=== PATIENT | female | born 1975 | race Caucasian/White ===

== ENCOUNTER → 2016-09-18 | Outpatient (CLI) | payer OTHER ==
[~2016-09-18] MED LIST: ATOR1TAB21 PO; BUPR150T3 PO; BUPR15TA PO; EFFE150C PO; GABA-279 PO; GLIP5TAB8 PO; HYDR-4274 PO; LISI40TAB PO; LOPR100T PO; METF500T PO; METH4TAB6 PO; METO-207 PO; MIRT1TAB PO; MIRT30TA3 PO; NAPR500T2 PO; NEUR300C PO; PRAZ2CAP PO; PROT1TAB2 PO; TOPA50TA7 PO; VENL225T PO; VENL50TA2 PO; XYZA5TAB2 PO
--- NOTE | 2016-09-19 05:34 | REP ---
LEFT HIP SERIES: TWO VIEWS. History: Pain in the left hip. Injury in a fall. Findings: AP and frog-leg views of the left hip show no evidence of hip fracture. Periarticular soft tissues are unremarkable. Left hemipelvis is intact. Impression: No fracture seen. Signed by Del Osullivan MD 09/19/2016 08:31 A
== END | disposition home or self-care (01) ==
LOC: M ADAMS 16:45
PROVIDERS: ATTEND Physician Assistant
DX: M25.552 Pain in left hip (principal)

== ENCOUNTER → 2016-11-03 | Outpatient (CLI) | payer OTHER ==
[~2016-11-03] MED LIST changes: -LOPR100T PO; +LOPR1TAB7 PO
== END ==
LOC: M LAB 16:14
PROVIDERS: ATTEND 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 Psychiatric/Mental Health
DX: F25.1 Schizoaffective disorder, depressive type (principal)

== ENCOUNTER 2016-11-13 15:23 | Emergency (ER) | payer OTHER ==
[~2016-11-13] VITALS: Ht 170.2 cm; Wt 141.5 kg
[2016-11-13 15:24] VITALS: BP 139/86
[2016-11-13] MEDS ORDERED: ZANA2CAP PO (15:43)
[2016-11-13] MEDS ORDERED: TRAM50TA2 PO (15:43)
[2016-11-13] MEDS ORDERED: MOBI7.5T10 PO (15:43)
[2016-11-13] MEDS ORDERED: KETOROLAC 30 MG/ML VIAL (J1885) IV ONE (17:45)
[2016-11-13] MEDS ORDERED: diazePAM 5 MG TAB PO ONE (17:45)
[2016-11-13] MEDS ORDERED: PERCOCET 5MG/325MG TAB PO ONE (17:45)
== END 2016-11-13 18:24 | disposition home or self-care (01) ==
LOC: M ED 16:43
DX: G89.29 Other chronic pain (principal); M54.16 Radiculopathy, lumbar region; I10 Essential (primary) hypertension; F32.9 Major depressive disorder, single episode, unspecified; Z79.899 Other long term (current) drug therapy; Z88.0 Allergy status to penicillin; Z87.891 Personal history of nicotine dependence
CPT/HCPCS: 96374; 99282; J1885

== ENCOUNTER → 2017-01-10 | Outpatient (CLI) | payer OTHER ==
[~2017-01-10] MED LIST changes: +MOBI7.5T10 PO; +TRAM50TA2 PO; +ZANA2CAP PO
[2017-01-10 09:22] LABS: ANION GAP 6 MEQ/L (8-16); BLOOD UREA NITROGEN 7 MG/DL (7-18); CALCIUM LEVEL 8.5 MG/DL (8.5-10.1); CARBON DIOXIDE LEVEL 31 MEQ/L (21-32); CHLORIDE LEVEL 105 MEQ/L (98-107); GLOMERULAR FILTRATION RATE > 60.0 (>58); GLUCOSE, FASTING 94 MG/DL (70-105); SODIUM LEVEL 142 MEQ/L (136-145)
== END ==
LOC: M LAB 08:07
PROVIDERS: ATTEND Physician Assistant Medical
DX: E11.9 Type 2 diabetes mellitus without complications (principal)

== ENCOUNTER 2017-01-31 14:24 | Emergency (ER) | payer OTHER ==
[~2017-01-31] VITALS: Ht 170.2 cm; Wt 138.3 kg
[2017-01-31] MEDS ORDERED: AMIT25TA PO (14:38)
[2017-01-31] MEDS ORDERED: OXYC-517 PO (14:38)
[2017-01-31 16:13] VITALS: BP 168/110
--- NOTE | 2017-01-31 16:52 | REP ---
Clinical: Cellulitis related to recent surgery. Evaluate for abscess. Technique: Real time alonso scale ultrasound examination using linear high frequency transducer. Findings: Directed ultrasound examination at the site of surgical incision and previously noted discharge demonstrates a normal subcutaneous tissues and musculature. No fluid, drainable collection, abscess, sinus tract or abnormalities identified. Impression: Essentially normal directed ultrasound examination. No fluid, drainable collection/abscess, or sinus tract noted. Signed by Jessee Seymour MD 01/31/2017 04:43 P
== END 2017-01-31 17:18 | disposition home or self-care (01) ==
LOC: M ED 15:35
DX: Z48.89 Encounter for other specified surgical aftercare (principal); I10 Essential (primary) hypertension; E11.9 Type 2 diabetes mellitus without complications; F31.9 Bipolar disorder, unspecified; F41.9 Anxiety disorder, unspecified; M54.9 Dorsalgia, unspecified; G89.29 Other chronic pain; Z87.891 Personal history of nicotine dependence; Z88.0 Allergy status to penicillin; Z79.899 Other long term (current) drug therapy

== ENCOUNTER → 2017-06-12 | Outpatient (CLI) | payer OTHER ==
[~2017-06-12] MED LIST changes: +AMIT25TA PO; -HYDR-4274 PO; +HYDR50TA70 PO; -METF500T PO; +METF500T13 PO; +METH4TAB28 PO; -METH4TAB6 PO; -METO-207 PO; +METO1TAB7 PO; +MOBI4TAB PO; -MOBI7.5T10 PO; -NAPR500T2 PO; +NAPR500T3 PO; +OXYC-517 PO; -TOPA50TA7 PO; +TOPA50TA8 PO
[2017-06-12 08:53] LABS: BASO % 0.6 % (0.0-1.0); EOS # 0.2 10^3/uL (0.0-0.50); EOS % 2.3 % (0.0-3.0); IMMATURE GRANULOCYTE % 0.3 % (0-0); LYMPH # 1.5 10^3/uL (1.5-4.5); LYMPH % 21.5 % (24.0-44.0); MEAN CORPUSCULAR HEMOGLOBIN 29.7 pg (27.0-33.0); MEAN CORPUSCULAR HGB CONC 32.1 g/dl (32.0-36.5); MEAN CORPUSCULAR VOLUME 92.7 fl (80.0-96.0); MONO # 0.5 10^3/uL (0.0-0.8); MONO % 7.3 % (0.0-5.0); NEUTROPHILS # 4.8 10^3/uL (1.8-7.7); RED CELL DISTRIBUTION WIDTH 11.7 % (11.5-14.5)
[2017-06-12 09:22] LABS: ALBUMIN 3.7 GM/DL (3.2-5.2); ALBUMIN/GLOBULIN RATIO 1.06 (1.00-1.93); ALKALINE PHOSPHATASE 83 U/L (45-117); ALT/SGPT 23 U/L (12-78); ANION GAP 6 MEQ/L (8-16); AST/SGOT 7 U/L (15-37); BILIRUBIN,TOTAL 0.4 MG/DL (0.2-1.0); BLOOD UREA NITROGEN 9 MG/DL (7-18); CALCIUM LEVEL 9.1 MG/DL (8.5-10.1); CARBON DIOXIDE LEVEL 30 MEQ/L (21-32); CHLORIDE LEVEL 104 MEQ/L (98-107); CREATININE FOR GFR 0.89 MG/DL (0.55-1.02); FERRITIN 75 NG/ML (8-252); GLOMERULAR FILTRATION RATE > 60.0 (>58); GLUCOSE, FASTING 120 MG/DL (70-105); SODIUM LEVEL 140 MEQ/L (136-145); TOTAL PROTEIN 7.2 GM/DL (6.4-8.2)
[2017-06-12 10:36] LABS: VITAMIN B12 LEVEL 366 PG/ML
[2017-06-12 10:39] LABS: FOLATE 11.1 NG/ML
[2017-06-13 12:02] LABS: ALBUMIN 4.15 GM/DL (3.29-5.55); ALBUMIN % 57.7 % (55.8-66.1); GAMMA GLOBULIN % 14.4 % (11.1-18.8)
[2017-06-14 00:06] LABS: Lyme Disease IgG/IgM Antibodie <0.91 ISR (0.00-0.90); Lyme Disease IgM Ab Quantitati <0.80 index (0.00-0.79)
== END ==
LOC: M LAB 07:37
PROVIDERS: ATTEND Physician Assistant Medical
DX: R42 Dizziness and giddiness (principal); M54.5 Low back pain

== ENCOUNTER → 2017-06-16 | Outpatient (CLI) | payer OTHER ==
--- NOTE | 2017-06-16 14:10 | REP ---
RIGHT SHOULDER SERIES: Three views of the right shoulder are performed and demonstrate no fracture, dislocation or intrinsic bone disease. IMPRESSION: Negative right shoulder series. Signed by Erasto Hernandez MD 06/16/2017 02:46 P
--- NOTE | 2017-06-16 14:11 | REP ---
RIGHT HUMERUS: AP and lateral views of the right humerus are performed. There is no evidence of acute fracture, dislocation, or intrinsic bone disease. IMPRESSION: Negative exam right humerus. Signed by Erasto Hernandez MD 06/16/2017 02:46 P
== END ==
LOC: M LAB 13:15
PROVIDERS: ATTEND Physician Assistant Medical
DX: M25.511 Pain in right shoulder (principal)

== ENCOUNTER → 2017-08-15 | Outpatient (CLI) | payer OTHER ==
[2017-08-15 12:01] LABS: BLOOD UREA NITROGEN 5 MG/DL (7-18); CREATININE FOR GFR 0.97 MG/DL (0.55-1.02); GLOMERULAR FILTRATION RATE > 60.0 (>58)
== END ==
LOC: M LAB 11:00
PROVIDERS: ATTEND Physician Assistant Medical
DX: Z86.79 Personal history of other diseases of the circulatory system (principal)

== ENCOUNTER → 2017-09-18 | Outpatient (CLI) | payer OTHER ==
[2017-09-18 15:05] LABS: BASO % 0.5 % (0.0-1.0); EOS # 0.2 10^3/uL (0.0-0.50); EOS % 2.6 % (0.0-3.0); HEMATOCRIT 39.9 % (36.0-47.0); HEMOGLOBIN 13.4 g/dl (12.0-16.0); IMMATURE GRANULOCYTE % 0.3 % (0-0); LYMPH # 1.7 10^3/uL (1.5-4.5); LYMPH % 21.7 % (24.0-44.0); MEAN CORPUSCULAR HGB CONC 33.6 g/dl (32.0-36.5); MEAN CORPUSCULAR VOLUME 89.3 fl (80.0-96.0); MONO # 0.6 10^3/uL (0.0-0.8); MONO % 7.5 % (0.0-5.0); NEUTROPHILS # 5.2 10^3/uL (1.8-7.7); NEUTROPHILS % 67.4 % (36.0-66.0); PLATELET COUNT, AUTOMATED 255 10^3/uL (150-450); RED BLOOD COUNT 4.47 10^6/uL (4.00-5.40); WHITE BLOOD COUNT 7.6 10^3/uL (4.0-10.0)
[2017-09-18 15:19] LABS: INR 1.03; PROTHROMBIN TIME 13.6 SECONDS (12.4-14.5)
[2017-09-18 15:20] LABS: PARTIAL THROMBOPLASTIN TIME 28.1 SECONDS (26.8-37.9)
[2017-09-18 15:34] LABS: ALBUMIN 3.5 GM/DL (3.2-5.2); ALBUMIN/GLOBULIN RATIO 1.09 (1.00-1.93); ALKALINE PHOSPHATASE 73 U/L (45-117); ALT/SGPT 24 U/L (12-78); ANION GAP 6 MEQ/L (8-16); AST/SGOT 12 U/L (7-37); BILIRUBIN,TOTAL 0.4 MG/DL (0.2-1.0); BLOOD UREA NITROGEN 6 MG/DL (7-18); CALCIUM LEVEL 8.9 MG/DL (8.5-10.1); CARBON DIOXIDE LEVEL 26 MEQ/L (21-32); CHLORIDE LEVEL 108 MEQ/L (98-107); CREATININE FOR GFR 0.86 MG/DL (0.55-1.02); GLOMERULAR FILTRATION RATE > 60.0 (>58); GLUCOSE, FASTING 113 MG/DL (70-105); SODIUM LEVEL 140 MEQ/L (136-145); TOTAL PROTEIN 6.7 GM/DL (6.4-8.2)
== END ==
LOC: M LAB 14:46
DX: E66.9 Obesity, unspecified (principal)
CPT/HCPCS: 71046

== ENCOUNTER → 2017-10-11 | Outpatient (CLI) | payer OTHER ==
[2017-10-11 19:04] LABS: BASO # 0.1 10^3/uL (0.0-0.2); BASO % 0.5 % (0.0-1.0); EOS # 0.4 10^3/uL (0.0-0.50); EOS % 3.5 % (0.0-3.0); HEMATOCRIT 40.4 % (36.0-47.0); HEMOGLOBIN 13.1 g/dl (12.0-16.0); IMMATURE GRANULOCYTE # 0.1 10^3/uL (0-0); IMMATURE GRANULOCYTE % 0.6 % (0-0); LYMPH # 1.4 10^3/uL (1.5-4.5); LYMPH % 13.7 % (24.0-44.0); MEAN CORPUSCULAR HEMOGLOBIN 29.7 pg (27.0-33.0); MEAN CORPUSCULAR HGB CONC 32.4 g/dl (32.0-36.5); MEAN CORPUSCULAR VOLUME 91.6 fl (80.0-96.0); MONO # 0.8 10^3/uL (0.0-0.8); MONO % 8.2 % (0.0-5.0); NEUTROPHILS # 7.3 10^3/uL (1.8-7.7); NEUTROPHILS % 73.5 % (36.0-66.0); PLATELET COUNT, AUTOMATED 291 10^3/uL (150-450); RED BLOOD COUNT 4.41 10^6/uL (4.00-5.40); RED CELL DISTRIBUTION WIDTH 12.1 % (11.5-14.5); WHITE BLOOD COUNT 9.9 10^3/uL (4.0-10.0)
[2017-10-11 19:15] LABS: ESTIMATED AVERAGE GLUCOSE 111 MG/DL (60-110); HEMOGLOBIN A1c 5.5 %
[2017-10-11 19:53] LABS: HEMATOCRIT 40.4 % (36.0-47.0)
[2017-10-11 19:57] LABS: ALBUMIN 3.7 GM/DL (3.2-5.2); ALBUMIN/GLOBULIN RATIO 1.12 (1.00-1.93); ALKALINE PHOSPHATASE 130 U/L (45-117); ALT/SGPT 63 U/L (12-78); ANION GAP 8 MEQ/L (8-16); AST/SGOT 25 U/L (7-37); BILIRUBIN,TOTAL 0.8 MG/DL (0.2-1.0); BLOOD UREA NITROGEN 16 MG/DL (7-18); CALCIUM LEVEL 9.1 MG/DL (8.5-10.1); CARBON DIOXIDE LEVEL 28 MEQ/L (21-32); CHLORIDE LEVEL 106 MEQ/L (98-107); FERRITIN 202 NG/ML (8-252); GLOMERULAR FILTRATION RATE 40.3 (>58); GLUCOSE, FASTING 81 MG/DL (70-100); IRON (FE) 54 UG/DL (50-170); MAGNESIUM LEVEL 2.2 MG/DL (1.8-2.4); PERCENT SATURATION 19.1 % (13.2-45.0); PHOSPHORUS LEVEL 3.5 MG/DL (2.5-4.9); SODIUM LEVEL 142 MEQ/L (136-145); TOTAL IRON BINDING CAPACITY 282 UG/DL (250-450)
[2017-10-11 19:58] LABS: TOTAL 25(OH) VITAMIN D 52.2 NG/ML (30.0-100.0)
[2017-10-11 19:59] LABS: VITAMIN B12 LEVEL 668 PG/ML (247-911)
[2017-10-13 12:50] LABS: PRETREATED FOLATE FOR RBCFOL 12.7 NG/ML; RBC FOLATE 660.1 NG/ML (280-791)
== END ==
LOC: M LAB 18:02
DX: K91.2 Postsurgical malabsorption, not elsewhere classified (principal); Z98.84 Bariatric surgery status
CPT/HCPCS: 83550

== ENCOUNTER → 2017-11-29 | Outpatient (CLI) | payer OTHER | LOC: M RAD 11:00 | DX: Z12.31 Encounter for screening mammogram for malignant neoplasm of breast (principal) | CPT/HCPCS: 77067 ==

== ENCOUNTER → 2017-12-28 | Outpatient (CLI) | payer OTHER | LOC: M PAIN 11:15 | DX: M96.1 Postlaminectomy syndrome, not elsewhere classified (principal); I10 Essential (primary) hypertension; E78.00 Pure hypercholesterolemia, unspecified; F41.9 Anxiety disorder, unspecified; F31.9 Bipolar disorder, unspecified; G47.30 Sleep apnea, unspecified; R73.03 Prediabetes; Z79.899 Other long term (current) drug therapy; Z98.84 Bariatric surgery status; Z87.891 Personal history of nicotine dependence; Z88.0 Allergy status to penicillin | CPT/HCPCS: G0463 ==

== ENCOUNTER → 2018-01-11 | Outpatient (CLI) | payer OTHER ==
[~2018-01-11] MED LIST changes: -AMIT25TA PO; -ATOR1TAB21 PO; +BUPIVACAINE HCL 0.25% 10 ML VIAL As Ordered; +BUPIVACAINE HCL 0.25% 30 ML VIAL As Ordered; -BUPR150T3 PO; -BUPR15TA PO; -EFFE150C PO; -GABA-279 PO; -GLIP5TAB8 PO; -HYDR50TA70 PO; -LISI40TAB PO; -LOPR1TAB7 PO; -METF500T13 PO; -METH4TAB28 PO; -METO1TAB7 PO; -MIRT1TAB PO; -MIRT30TA3 PO; -MOBI4TAB PO; -NAPR500T3 PO; -NEUR300C PO; -OXYC-517 PO; -PRAZ2CAP PO; -PROT1TAB2 PO; -TOPA50TA8 PO; -TRAM50TA2 PO; +TRIAMCINOLONE ACETONIDE SUSP 40 MG/ML VIAL (J3301) As Ordered; -VENL225T PO; -VENL50TA2 PO; -XYZA5TAB2 PO; -ZANA2CAP PO; +diazePAM 5 MG TAB As Ordered; +oxyCODONE 5MG TAB As Ordered
== END ==
LOC: M PAIN 14:30
DX: G89.29 Other chronic pain (principal); M79.1 Myalgia; I10 Essential (primary) hypertension; E78.2 Mixed hyperlipidemia; F41.9 Anxiety disorder, unspecified; F31.9 Bipolar disorder, unspecified; Z87.891 Personal history of nicotine dependence; Z79.891 Long term (current) use of opiate analgesic; Z98.84 Bariatric surgery status; Z90.49 Acquired absence of other specified parts of digestive tract; Z88.0 Allergy status to penicillin
CPT/HCPCS: J3301

== ENCOUNTER → 2018-01-30 | Outpatient (CLI) | payer OTHER | LOC: M PAIN 11:45 | DX: M79.1 Myalgia (principal); M96.1 Postlaminectomy syndrome, not elsewhere classified; I10 Essential (primary) hypertension; R73.03 Prediabetes; E78.00 Pure hypercholesterolemia, unspecified; E78.1 Pure hyperglyceridemia; F41.9 Anxiety disorder, unspecified; F17.210 Nicotine dependence, cigarettes, uncomplicated; Z79.899 Other long term (current) drug therapy; Z88.0 Allergy status to penicillin; Z86.59 Personal history of other mental and behavioral disorders; Z98.84 Bariatric surgery status | CPT/HCPCS: G0463 ==

== ENCOUNTER → 2018-02-20 | Outpatient (CLI) | payer OTHER | LOC: M PAIN 09:00 | DX: M50.122 Cervical disc disorder at C5-C6 level with radiculopathy (principal); M79.1 Myalgia; M96.1 Postlaminectomy syndrome, not elsewhere classified; I10 Essential (primary) hypertension; R73.03 Prediabetes; E78.2 Mixed hyperlipidemia; F41.9 Anxiety disorder, unspecified; F32.9 Major depressive disorder, single episode, unspecified; Z87.891 Personal history of nicotine dependence; Z88.0 Allergy status to penicillin; Z79.891 Long term (current) use of opiate analgesic; Z79.899 Other long term (current) drug therapy | CPT/HCPCS: G0463 ==

== ENCOUNTER 2018-03-06 19:39 | Observation (INO) | payer OTHER ==
[2018-03-06] MEDS: NS 1,000 ML IV (16:33)
[2018-03-06] MEDS: GI COCKTAIL 50ML BTL(HYOSCYAMINE/MAALOX/LIDOCAINE VISCOUS)(1:3:1) PO (16:33)
[2018-03-06 16:51] LABS: BASO % 0.3 % (0.0-1.0); EOS # 0.1 10^3/uL (0.0-0.50); EOS % 1.5 % (0.0-3.0); HEMATOCRIT 41.2 % (36.0-47.0); IMMATURE GRANULOCYTE % 0.2 % (0-3.0); LYMPH # 1.6 10^3/uL (1.5-4.5); MEAN CORPUSCULAR VOLUME 88.4 fl (80.0-96.0); MONO # 0.4 10^3/uL (0.0-0.8); MONO % 7.2 % (0.0-5.0); NEUTROPHILS % 64.8 % (36.0-66.0); PLATELET COUNT, AUTOMATED 201 10^3/uL (150-450); RED BLOOD COUNT 4.66 10^6/uL (4.00-5.40); WHITE BLOOD COUNT 6.1 10^3/uL (4.0-10.0)
[2018-03-06 16:56] LABS: INR 1.05; PARTIAL THROMBOPLASTIN TIME 30.9 SECONDS (26.8-37.9); PROTHROMBIN TIME 13.8 SECONDS (12.4-14.5)
[2018-03-06 17:13] LABS: ALKALINE PHOSPHATASE 93 U/L (45-117); ALT/SGPT 47 U/L (12-78); ANION GAP 9 MEQ/L (8-16); AST/SGOT 58 U/L (7-37); BILIRUBIN,DIRECT 0.2 MG/DL (0.0-0.2); BILIRUBIN,TOTAL 0.6 MG/DL (0.2-1.0); BLOOD UREA NITROGEN 9 MG/DL (7-18); CALCIUM LEVEL 8.6 MG/DL (8.5-10.1); CARBON DIOXIDE LEVEL 24 MEQ/L (21-32); CHLORIDE LEVEL 111 MEQ/L (98-107); CPK CREATINE PHOSPHOKINASE 81 U/L (26-192); CREATININE FOR GFR 0.53 MG/DL (0.55-1.30); FREE T4 0.86 NG/DL (0.76-1.46); GLOMERULAR FILTRATION RATE > 60.0 (>58); GLUCOSE, FASTING 83 MG/DL (70-100); LIPASE 460 U/L (73-393); POTASSIUM SERUM 3.8 MEQ/L (3.5-5.1); SODIUM LEVEL 144 MEQ/L (136-145); TROPONIN I < 0.02 NG/ML (< 0.10)
[2018-03-06 17:17] LABS: LACTIC ACID SEPSIS PROTOCOL 1.4 MMOL/L (0.4-2.0)
[2018-03-06 17:18] LABS: CK-MB VALUE MASS 1.4 NG/ML (<3.6); MB/CK RELATIVE INDEX 1.72 (< OR =4); THYROID STIMULATING HORMONE 0.511 uIU/ML (0.358-3.740)
[2018-03-06] MEDS: ASPIRIN 81 MG CHEW TABLET PO (18:11)
[~2018-03-06 19:39] MED LIST changes: +ISOVUE-370 76% 100ML VIAL (Q9967) As Ordered; -ISOVUE-M 300 61% 15ML VIAL (Q9967) As Ordered; -LIDOCAINE 1% SDV INJ 30 ML VIAL As Ordered; -diazePAM 5 MG TAB As Ordered; -methylPREDNISolone SUSP 40 MG/ML (DEPO-medrol) VIAL (J1030) As Ordered; -oxyCODONE 5MG TAB As Ordered
[2018-03-06 21:13] LABS: AMORPHOUS SEDIMENT RFX SMALL (NEGATIVE); CALCIUM OXALATE CRYSTALS RFX SMALL; KETONE, URINE AUTO RFX TRACE mg/dL (NEGATIVE); LEUKOCYTE ESTERASE UR AUTO RFX NEGATIVE (NEGATIVE); MUCUS, URINE RFX SMALL (NEGATIVE); NITRITE, URINE AUTO RFX NEGATIVE (NEGATIVE); RBC, URINE AUTO RFX 8 /HPF (0-3); SPECIFIC GRAVITY UR AUTO RFX 1.038 (1.002-1.035); SQUAM EPITHELIAL CELL UR AURFX 2 /HPF (0-6); WBC, URINE AUTO RFX 2 /HPF (0-3)
[2018-03-06 21:36] LABS: CPK CREATINE PHOSPHOKINASE 57 U/L (26-192); TROPONIN I < 0.02 NG/ML (< 0.10)
[2018-03-06 21:37] LABS: CK-MB VALUE MASS 1.2 NG/ML (<3.6)
[2018-03-06] MEDS: amLODIPine 5 MG TAB PO (22:42)
[2018-03-07] MEDS: ACETAMINOPHEN TAB 650MG DOSE (2X325MG) PO ×2 (00:41→07:45)
[2018-03-07] MEDS ORDERED: SLF 3 ML SYR IV ×2 (08:30→14:00)
[2018-03-07 08:40] LABS: HEMATOCRIT 39.2 % (36.0-47.0); HEMOGLOBIN 13.3 g/dl (12.0-15.5); MEAN CORPUSCULAR HEMOGLOBIN 30.2 pg (27.0-33.0); MEAN CORPUSCULAR HGB CONC 33.9 g/dl (32.0-36.5); MEAN CORPUSCULAR VOLUME 89.1 fl (80.0-96.0); PLATELET COUNT, AUTOMATED 193 10^3/uL (150-450); WHITE BLOOD COUNT 5.7 10^3/uL (4.0-10.0)
[2018-03-07 09:19] LABS: ANION GAP 10 MEQ/L (8-16); BLOOD UREA NITROGEN 7 MG/DL (7-18); CALCIUM LEVEL 8.1 MG/DL (8.5-10.1); CARBON DIOXIDE LEVEL 26 MEQ/L (21-32); CHLORIDE LEVEL 110 MEQ/L (98-107); CK-MB VALUE MASS < 1.0 NG/ML (<3.6); CPK CREATINE PHOSPHOKINASE 37 U/L (26-192); CREATININE FOR GFR 0.58 MG/DL (0.55-1.30); GLOMERULAR FILTRATION RATE > 60.0 (>58); GLUCOSE, FASTING 76 MG/DL (70-100); POTASSIUM SERUM 3.7 MEQ/L (3.5-5.1); SODIUM LEVEL 146 MEQ/L (136-145); TROPONIN I < 0.02 NG/ML (< 0.10)
[2018-03-07] MEDS: amLODIPine 5 MG TAB PO (09:37)
== END 2018-03-07 10:56 | disposition home or self-care (01) ==
LOC: M ED 19:39 → M ED INP 22:04 → M PCU 22:58
DX: R00.1 Bradycardia, unspecified (principal); I10 Essential (primary) hypertension; Z79.899 Other long term (current) drug therapy; Z88.0 Allergy status to penicillin; M54.5 Low back pain; E78.5 Hyperlipidemia, unspecified; E11.9 Type 2 diabetes mellitus without complications; F31.9 Bipolar disorder, unspecified; F43.10 Post-traumatic stress disorder, unspecified; E66.01 Morbid (severe) obesity due to excess calories; Z98.84 Bariatric surgery status
CPT/HCPCS: Q9967

== ENCOUNTER → 2018-03-06 | Outpatient (CLI) | payer OTHER ==
[~2018-03-06] MED LIST changes: -BUPIVACAINE HCL 0.25% 10 ML VIAL As Ordered; -BUPIVACAINE HCL 0.25% 30 ML VIAL As Ordered; +ISOVUE-M 300 61% 15ML VIAL (Q9967) As Ordered; +LIDOCAINE 1% SDV INJ 30 ML VIAL As Ordered; -TRIAMCINOLONE ACETONIDE SUSP 40 MG/ML VIAL (J3301) As Ordered; +methylPREDNISolone SUSP 40 MG/ML (DEPO-medrol) VIAL (J1030) As Ordered
== END ==
LOC: M PAIN 11:30
DX: G89.29 Other chronic pain (principal); M96.1 Postlaminectomy syndrome, not elsewhere classified; M54.16 Radiculopathy, lumbar region; I10 Essential (primary) hypertension; R73.03 Prediabetes; E78.00 Pure hypercholesterolemia, unspecified; F41.9 Anxiety disorder, unspecified; F31.9 Bipolar disorder, unspecified; Z79.899 Other long term (current) drug therapy; Z88.8 Allergy status to other drugs, medicaments and biological substances; Z98.84 Bariatric surgery status; Z87.891 Personal history of nicotine dependence
CPT/HCPCS: J1030

== ENCOUNTER → 2018-03-23 | Outpatient (CLI) | payer OTHER | LOC: M PAIN 13:15 | DX: M50.122 Cervical disc disorder at C5-C6 level with radiculopathy (principal); M79.1 Myalgia; M96.1 Postlaminectomy syndrome, not elsewhere classified; I10 Essential (primary) hypertension; R73.03 Prediabetes; E78.2 Mixed hyperlipidemia; F41.9 Anxiety disorder, unspecified; F32.9 Major depressive disorder, single episode, unspecified; Z87.891 Personal history of nicotine dependence; Z79.899 Other long term (current) drug therapy; Z98.84 Bariatric surgery status; Z90.49 Acquired absence of other specified parts of digestive tract; Z88.0 Allergy status to penicillin | CPT/HCPCS: G0463 ==

== ENCOUNTER → 2018-04-03 | Outpatient (CLI) | payer OTHER ==
[2018-04-03 08:56] LABS: HEMATOCRIT 41.8 % (36.0-47.0); HEMOGLOBIN 13.9 g/dl (12.0-15.5); MEAN CORPUSCULAR HEMOGLOBIN 30.5 pg (27.0-33.0); MEAN CORPUSCULAR HGB CONC 33.3 g/dl (32.0-36.5); MEAN CORPUSCULAR VOLUME 91.7 fl (80.0-96.0); PLATELET COUNT, AUTOMATED 191 10^3/uL (150-450); RED BLOOD COUNT 4.56 10^6/uL (4.00-5.40); RED CELL DISTRIBUTION WIDTH 13.3 % (11.5-14.5); WHITE BLOOD COUNT 4.9 10^3/uL (4.0-10.0)
[2018-04-03 09:13] LABS: ESTIMATED AVERAGE GLUCOSE 100 MG/DL (60-110); HEMOGLOBIN A1c 5.1 %
[2018-04-03 09:22] LABS: ALBUMIN 3.1 GM/DL (3.2-5.2); ALBUMIN/GLOBULIN RATIO 1.15 (1.00-1.93); ALKALINE PHOSPHATASE 74 U/L (45-117); ALT/SGPT 24 U/L (12-78); ANION GAP 8 MEQ/L (8-16); AST/SGOT 11 U/L (7-37); BILIRUBIN,TOTAL 0.5 MG/DL (0.2-1.0); BLOOD UREA NITROGEN 7 MG/DL (7-18); CALCIUM LEVEL 8.4 MG/DL (8.5-10.1); CARBON DIOXIDE LEVEL 29 MEQ/L (21-32); CHLORIDE LEVEL 109 MEQ/L (98-107); CHOLESTEROL LEVEL 115 MG/DL (<200); CHOLESTEROL RISK RATIO 2.948 (<5); FREE T4 0.78 NG/DL (0.76-1.46); GLOMERULAR FILTRATION RATE > 60.0 (>58); GLUCOSE, FASTING 78 MG/DL (70-100); HDL CHOLESTEROL 39 MG/DL (>40); NON-HDL-C 76 MG/DL; POTASSIUM SERUM 3.5 MEQ/L (3.5-5.1); SODIUM LEVEL 146 MEQ/L (136-145); THYROID STIMULATING HORMONE 0.958 uIU/ML (0.358-3.740); TOTAL PROTEIN 5.8 GM/DL (6.4-8.2); TRIGLYCERIDES LEVEL 80 MG/DL (<150)
[2018-04-03 10:43] LABS: TOTAL 25(OH) VITAMIN D 80.8 NG/ML (30.0-100.0); VITAMIN B12 LEVEL 321 PG/ML (247-911)
[2018-04-03 10:44] LABS: FOLATE 6.9 NG/ML (>5.4)
[2018-04-04 14:27] LABS: C-PEPTIDE 2.8 ng/mL (1.1-4.4)
[2018-04-04 14:27] LABS: INSULIN LEVEL 9.7 uIU/mL (2.6-24.9)
== END ==
LOC: M LAB 08:16
DX: R53.83 Other fatigue (principal)
CPT/HCPCS: 82746

== ENCOUNTER → 2018-04-17 | Outpatient (REF) | payer OTHER ==
[2018-04-20 14:49] LABS: HPV HYBRID CAPTURE II Positive (Negative)
== END ==
LOC: M LAB REF 17:59
DX: Z11.51 Encounter for screening for human papillomavirus (HPV) (principal); R87.810 Cervical high risk human papillomavirus (HPV) DNA test positive
CPT/HCPCS: 88142

== ENCOUNTER → 2018-04-17 | Outpatient (CLI) | payer OTHER ==
[2018-04-17 12:52] LABS: BASO % 0.7 % (0.0-1.0); EOS # 0.1 10^3/uL (0.0-0.50); EOS % 1.7 % (0.0-3.0); HEMOGLOBIN 13.5 g/dl (12.0-15.5); IMMATURE GRANULOCYTE % 0.2 % (0-3.0); LYMPH # 1.2 10^3/uL (1.5-4.5); LYMPH % 26.5 % (24.0-44.0); MEAN CORPUSCULAR HEMOGLOBIN 30.7 pg (27.0-33.0); MEAN CORPUSCULAR HGB CONC 33.8 g/dl (32.0-36.5); MEAN CORPUSCULAR VOLUME 90.9 fl (80.0-96.0); MONO # 0.4 10^3/uL (0.0-0.8); MONO % 7.8 % (0.0-5.0); NEUTROPHILS # 2.9 10^3/uL (1.8-7.7); NEUTROPHILS % 63.1 % (36.0-66.0); PLATELET COUNT, AUTOMATED 191 10^3/uL (150-450); RED CELL DISTRIBUTION WIDTH 12.9 % (11.5-14.5); WHITE BLOOD COUNT 4.6 10^3/uL (4.0-10.0)
[2018-04-17 13:36] LABS: TOTAL 25(OH) VITAMIN D 40.7 NG/ML (30.0-100.0); VITAMIN B12 LEVEL 257 PG/ML
[2018-04-17 13:37] LABS: FOLATE 7.2 NG/ML
[2018-04-17 13:40] LABS: ALBUMIN 3.1 GM/DL (3.2-5.2); ALBUMIN/GLOBULIN RATIO 1.11 (1.00-1.93); ALKALINE PHOSPHATASE 76 U/L (45-117); ALT/SGPT 25 U/L (12-78); ANION GAP 6 MEQ/L (8-16); AST/SGOT 17 U/L (7-37); BILIRUBIN,TOTAL 0.5 MG/DL (0.2-1.0); BLOOD UREA NITROGEN 6 MG/DL (7-18); CALCIUM LEVEL 8.4 MG/DL (8.5-10.1); CARBON DIOXIDE LEVEL 29 MEQ/L (21-32); CHLORIDE LEVEL 109 MEQ/L (98-107); CREATININE FOR GFR 0.85 MG/DL (0.55-1.30); FERRITIN 37 NG/ML (8-252); GLOMERULAR FILTRATION RATE > 60.0 (>58); GLUCOSE, FASTING 75 MG/DL (70-100); IRON (FE) 106 UG/DL (50-170); PERCENT SATURATION 35.5 % (13.2-45.0); PHOSPHORUS LEVEL 3.1 MG/DL (2.5-4.9); POTASSIUM SERUM 4.2 MEQ/L (3.5-5.1); SODIUM LEVEL 144 MEQ/L (136-145); TOTAL IRON BINDING CAPACITY 299 UG/DL (250-450); TOTAL PROTEIN 5.9 GM/DL (6.4-8.2)
[2018-04-17 14:12] LABS: ESTIMATED AVERAGE GLUCOSE 88 MG/DL (60-110); HEMOGLOBIN A1c 4.7 %
[2018-04-17 14:59] LABS: PRETREATED FOLATE FOR RBCFOL 10.6 NG/ML
[2018-04-18 15:24] LABS: RBC FOLATE 556.5 NG/ML (280-791)
== END ==
LOC: M LAB 11:53
DX: K91.2 Postsurgical malabsorption, not elsewhere classified (principal); Z98.84 Bariatric surgery status; E55.9 Vitamin D deficiency, unspecified
CPT/HCPCS: 82746

== ENCOUNTER → 2018-05-17 | Outpatient (CLI) | payer OTHER | LOC: M PAIN 11:15 | DX: M50.122 Cervical disc disorder at C5-C6 level with radiculopathy (principal); M79.1 Myalgia; M96.1 Postlaminectomy syndrome, not elsewhere classified; I10 Essential (primary) hypertension; R73.03 Prediabetes; E78.00 Pure hypercholesterolemia, unspecified; E78.1 Pure hyperglyceridemia; F41.9 Anxiety disorder, unspecified; F31.9 Bipolar disorder, unspecified; Z79.899 Other long term (current) drug therapy; Z88.8 Allergy status to other drugs, medicaments and biological substances; Z98.84 Bariatric surgery status; Z87.891 Personal history of nicotine dependence | CPT/HCPCS: G0463 ==

== ENCOUNTER 2018-06-19 20:53 | Emergency (ER) | payer OTHER | END 2018-06-20 00:06 | disposition left against medical advice (07) | LOC: M ED 20:53 | DX: M54.9 Dorsalgia, unspecified (principal); Z53.21 Procedure and treatment not carried out due to patient leaving prior to being seen by health care provider ==

== ENCOUNTER 2018-06-24 16:08 | Inpatient (IN) | payer OTHER ==
[2018-06-24 16:42] LABS: ABG BASE EXCESS -1.4 (-2.0-2.0); ABG O2 SATURATION 97.6 % (95.0-99.0); ABG PARTIAL PRESSURE CO2 38.2 mmHg (35.0-45.0); ABG PARTIAL PRESSURE O2 93.6 mmHg (75.0-100.0); ABG STANDARD HCO3 23.3 MEQ/L (22.0-26.0); ABG TOTAL CO2 24.2 MEQ/L (22.0-29.0); ABG pH (ARTERIAL) 7.398 UNITS (7.350-7.450)
[2018-06-24 16:50] LABS: BASO % 0.3 % (0.0-1.0); EOS # 0.1 10^3/uL (0.0-0.50); EOS % 0.8 % (0.0-3.0); HEMATOCRIT 49.5 % (36.0-47.0); HEMOGLOBIN 16.1 g/dl (12.0-15.5); IMMATURE GRANULOCYTE % 0.5 % (0-3.0); LYMPH # 1.3 10^3/uL (1.5-4.5); LYMPH % 11.1 % (24.0-44.0); MEAN CORPUSCULAR HEMOGLOBIN 30.5 pg (27.0-33.0); MEAN CORPUSCULAR HGB CONC 32.5 g/dl (32.0-36.5); MEAN CORPUSCULAR VOLUME 93.8 fl (80.0-96.0); MONO # 0.6 10^3/uL (0.0-0.8); MONO % 5.7 % (0.0-5.0); NEUTROPHILS # 9.2 10^3/uL (1.8-7.7); NEUTROPHILS % 81.6 % (36.0-66.0); PLATELET COUNT, AUTOMATED 218 10^3/uL (150-450); RED BLOOD COUNT 5.28 10^6/uL (4.00-5.40); RED CELL DISTRIBUTION WIDTH 12.1 % (11.5-14.5); WHITE BLOOD COUNT 11.3 10^3/uL (4.0-10.0)
[2018-06-24] MEDS: ONDANSETRON 4MG/2ML VIAL (J2405) IV ×2 (16:55→19:00)
[2018-06-24] MEDS ORDERED: ONDANSETRON 4MG/2ML VIAL (J2405) As Ordered (16:56)
[2018-06-24 17:10] LABS: AMMONIA < 10 uMOL/L (<32)
[2018-06-24 17:22] LABS: ACETAMINOPHEN LEVEL < 2.0 UG/ML (10.0-30.0); ALBUMIN 3.6 GM/DL (3.2-5.2); ALBUMIN/GLOBULIN RATIO 1.24 (1.00-1.93); ALKALINE PHOSPHATASE 141 U/L (45-117); ALT/SGPT 358 U/L (12-78); ANION GAP 10 MEQ/L (8-16); AST/SGOT 102 U/L (7-37); BILIRUBIN,DIRECT 0.3 MG/DL (0.0-0.2); BILIRUBIN,TOTAL 0.7 MG/DL (0.2-1.0); BLOOD UREA NITROGEN 6 MG/DL (7-18); CALCIUM LEVEL 8.9 MG/DL (8.5-10.1); CARBON DIOXIDE LEVEL 29 MEQ/L (21-32); CHLORIDE LEVEL 109 MEQ/L (98-107); CPK CREATINE PHOSPHOKINASE 47 U/L (26-192); CREATININE FOR GFR 0.85 MG/DL (0.55-1.30); ETHYL ALCOHOL (ETHANOL) < 0.003 % (0.000-0.010); GLOMERULAR FILTRATION RATE > 60.0 (>58); GLUCOSE, FASTING 151 MG/DL (70-100); LITHIUM LEVEL < 0.20 MEQ/L (0.60-1.20); MB/CK RELATIVE INDEX 6.17 (< OR =4); POTASSIUM SERUM 4.7 MEQ/L (3.5-5.1); SALICYLATE LEVEL < 1.7 MG/DL (5.0-30.0); SODIUM LEVEL 148 MEQ/L (136-145); THYROID STIMULATING HORMONE 0.472 uIU/ML (0.358-3.740); TOTAL PROTEIN 6.5 GM/DL (6.4-8.2); TROPONIN I 0.52 NG/ML (< 0.10)
[2018-06-24] MEDS: NS 1,000 ML IV (17:49)
[2018-06-24 18:13] LABS: AMPHETAMINES LEVEL URINE NEGATIVE (NEGATIVE); BARBITURATES URINE NEGATIVE (NEGATIVE); BENZODIAZEPINES URINE NEGATIVE (NEGATIVE); CANNABINOIDS URINE POSITIVE (NEGATIVE); COCAINE METABOLITE URINE NEGATIVE (NEGATIVE); METHADONE URINE NEGATIVE (NEGATIVE); OPIATES URINE NEGATIVE (NEGATIVE); PHENCYCLIDINE URINE NEGATIVE (NEGATIVE)
[2018-06-24 18:31] LABS: OSMOLALITY SERUM 303 MOSM/KG (275-295)
[2018-06-24 19:28] LABS: BEDSIDE GLUCOSE 104 MG/DL (70-105)
[2018-06-24 19:43] LABS: CPK CREATINE PHOSPHOKINASE 84 U/L (26-192); MB/CK RELATIVE INDEX 5.95 (< OR =4); TROPONIN I 0.97 NG/ML (< 0.10)
[2018-06-24] MEDS: D5W/0.45% SODIUM CHLORIDE 1,000 ML IV (21:00)
[2018-06-24] MEDS ORDERED: GLUCOSE 4 GM CHEW TABLET PO (21:00)
[2018-06-24] MEDS ORDERED: DEXTROSE 50% 50 ML SYRINGE IV (21:00)
[2018-06-24] MEDS ORDERED: GLUCAGON FOR INJ 1 MG VIAL (J1610) SC (21:00)
[2018-06-24 22:22] LABS: LITHIUM LEVEL < 0.20 MEQ/L (0.60-1.20)
[2018-06-24] MEDS: KETOROLAC 30 MG/ML VIAL (J1885) IV (23:41)
[2018-06-24] MEDS: LORazepam 2 MG/ML VIAL (J2060) IV (23:56)
[2018-06-25] MEDS: MORPHINE 4 MG/ML 1ML VIAL/SYRINGE (J2270) IV ×2 (00:03→06:51)
[2018-06-25] MEDS ORDERED: KETOROLAC 30 MG/ML VIAL (J1885) IV ×2 (00:30→13:00)
[2018-06-25 00:32] LABS: KETONE, URINE AUTO RFX TRACE mg/dL (NEGATIVE); LEUKOCYTE ESTERASE UR AUTO RFX TRACE (NEGATIVE); MUCUS, URINE RFX SMALL (NEGATIVE); NITRITE, URINE AUTO RFX NEGATIVE (NEGATIVE); RBC, URINE AUTO RFX 0 /HPF (0-3); SPECIFIC GRAVITY UR AUTO RFX 1.008 (1.002-1.035); SQUAM EPITHELIAL CELL UR AURFX 1 /HPF (0-6); WBC, URINE AUTO RFX 3 /HPF (0-3)
[2018-06-25 00:38] LABS: TROPONIN I 1.64 NG/ML (< 0.10)
[2018-06-25 00:46] LABS: INR 1.05; PROTHROMBIN TIME 13.8 SECONDS (12.1-14.4)
[2018-06-25 00:54] LABS: BEDSIDE GLUCOSE 122 MG/DL (70-105)
[2018-06-25] MEDS: SUCRALFATE 1 GM TAB PO ×5 (01:45→20:16)
[2018-06-25] MEDS: PANTOPRAZOLE 40MG TAB (PROTONIX) PO ×3 (01:45→20:15)
[2018-06-25] MEDS: ENOXAPARIN 100MG/1ML SYRINGE (J1650) SC ×3 (02:15→20:13)
[2018-06-25] MEDS: METOPROLOL 5 MG/5 ML VIAL IV (04:34)
[2018-06-25 05:05] LABS: HEMATOCRIT 44.6 % (36.0-47.0); HEMOGLOBIN 14.9 g/dl (12.0-15.5); MEAN CORPUSCULAR HEMOGLOBIN 30.3 pg (27.0-33.0); MEAN CORPUSCULAR HGB CONC 33.4 g/dl (32.0-36.5); MEAN CORPUSCULAR VOLUME 90.7 fl (80.0-96.0); PLATELET COUNT, AUTOMATED 238 10^3/uL (150-450); RED BLOOD COUNT 4.92 10^6/uL (4.00-5.40); WHITE BLOOD COUNT 9.8 10^3/uL (4.0-10.0)
[2018-06-25 05:43] LABS: ALBUMIN 3.1 GM/DL (3.2-5.2); ALBUMIN/GLOBULIN RATIO 1.11 (1.00-1.93); ALKALINE PHOSPHATASE 164 U/L (45-117); ALT/SGPT 337 U/L (12-78); ANION GAP 6 MEQ/L (8-16); AST/SGOT 214 U/L (7-37); BILIRUBIN,TOTAL 0.9 MG/DL (0.2-1.0); BLOOD UREA NITROGEN 9 MG/DL (7-18); CALCIUM LEVEL 8.2 MG/DL (8.5-10.1); CARBON DIOXIDE LEVEL 27 MEQ/L (21-32); CHLORIDE LEVEL 113 MEQ/L (98-107); CREATININE FOR GFR 0.63 MG/DL (0.55-1.30); GLOMERULAR FILTRATION RATE > 60.0 (>58); GLUCOSE, FASTING 102 MG/DL (70-100); POTASSIUM SERUM 3.9 MEQ/L (3.5-5.1); SODIUM LEVEL 146 MEQ/L (136-145); TOTAL PROTEIN 5.9 GM/DL (6.4-8.2); TROPONIN I 1.94 NG/ML (< 0.10)
[2018-06-25] MEDS: HumaLOG INSULIN (NovoLOG) PER UNIT SC (06:00)
[2018-06-25] MEDS: ASPIRIN 300 MG SUPP PR (06:50)
[2018-06-25] MEDS ORDERED: HumaLOG INSULIN (NovoLOG) PER UNIT SC (07:30)
[2018-06-25] MEDS ORDERED: ISOVUE-370 76% 100ML VIAL (Q9967) As Ordered (07:42)
[2018-06-25] MEDS ORDERED: ENOXAPARIN 40 MG/0.4 ML SYRINGE (J1650) SC (09:00)
[2018-06-25] MEDS: CLOPIDOGREL 300 MG TAB (PLAVIX) PO (09:32)
[2018-06-25] MEDS: METOPROLOL TART 25 MG TABLET PO ×2 (09:32→20:15)
[2018-06-25] MEDS: ASPIRIN 81 MG ENTERIC TAB PO (09:33)
[2018-06-25 10:08] LABS: TROPONIN I 1.67 NG/ML (< 0.10)
[2018-06-25 10:13] LABS: LITHIUM LEVEL < 0.20 MEQ/L (0.60-1.20)
[2018-06-25] MEDS: KETOROLAC 30 MG/ML VIAL (J1885) IV (10:38)
[2018-06-25 11:57] LABS: BEDSIDE GLUCOSE 129 MG/DL (70-105)
[2018-06-25 14:00] LABS: HEPATITIS A ANTIBODY IGM NEGATIVE (NEGATIVE); HEPATITIS B CORE ANTIBODY IGM NEGATIVE (NEGATIVE); HEPATITIS B SURFACE ANTIGEN NEGATIVE (NEGATIVE)
[2018-06-25] MEDS ORDERED: SLF 3 ML SYR IV (14:30)
[2018-06-25] MEDS: GABAPENTIN 300 MG CAP PO ×2 (16:03→20:15)
[2018-06-25] MEDS: traMADol 50 MG TAB PO ×2 (16:03→22:12)
[2018-06-25] MEDS: tiZANidine 4 MG TAB PO ×2 (16:03→20:15)
[2018-06-25] MEDS: ZIPRASIDONE 20MG CAPSULE (GEODON) PO ×2 (16:03→20:15)
[2018-06-25 16:52] LABS: TROPONIN I 1.22 NG/ML (< 0.10)
[2018-06-25 17:55] LABS: HIV 1&2 SCREEN CENTAUR NEGATIVE (NEGATIVE)
[2018-06-25] MEDS: PRAZOSIN 1 MG CAP PO (20:14)
[2018-06-25] MEDS: AMITRIPTYLINE 50 MG TAB PO (20:15)
[2018-06-25] MEDS: LITHIUM CARBONATE 300 MG CAP PO (20:15)
[2018-06-25 20:27] LABS: BEDSIDE GLUCOSE 114 MG/DL (70-105)
[2018-06-25] MEDS ORDERED: ATORVASTATIN 20 MG TAB PO (21:00)
[2018-06-25] MEDS: SLF 3 ML SYR IV (21:13)
[2018-06-25 23:40] LABS: BEDSIDE GLUCOSE 136 MG/DL (70-105)
[2018-06-26] MEDS: SLF 3 ML SYR IV (05:00)
[2018-06-26 05:38] LABS: HEMATOCRIT 40.3 % (36.0-47.0); HEMOGLOBIN 13.4 g/dl (12.0-15.5); MEAN CORPUSCULAR HEMOGLOBIN 30.2 pg (27.0-33.0); MEAN CORPUSCULAR HGB CONC 33.3 g/dl (32.0-36.5); PLATELET COUNT, AUTOMATED 186 10^3/uL (150-450); RED BLOOD COUNT 4.43 10^6/uL (4.00-5.40); RED CELL DISTRIBUTION WIDTH 12.1 % (11.5-14.5); WHITE BLOOD COUNT 6.8 10^3/uL (4.0-10.0)
[2018-06-26 06:07] LABS: ALBUMIN 2.9 GM/DL (3.2-5.2); ALBUMIN/GLOBULIN RATIO 1.04 (1.00-1.93); ALKALINE PHOSPHATASE 124 U/L (45-117); ALT/SGPT 223 U/L (12-78); ANION GAP 6 MEQ/L (8-16); AST/SGOT 56 U/L (7-37); BILIRUBIN,TOTAL 0.9 MG/DL (0.2-1.0); BLOOD UREA NITROGEN 10 MG/DL (7-18); CALCIUM LEVEL 8.4 MG/DL (8.5-10.1); CARBON DIOXIDE LEVEL 27 MEQ/L (21-32); CHLORIDE LEVEL 110 MEQ/L (98-107); GLOMERULAR FILTRATION RATE > 60.0 (>58); GLUCOSE, FASTING 91 MG/DL (70-100); POTASSIUM SERUM 3.9 MEQ/L (3.5-5.1); SODIUM LEVEL 143 MEQ/L (136-145); TOTAL PROTEIN 5.7 GM/DL (6.4-8.2)
[2018-06-26] MEDS: SUCRALFATE 1 GM TAB PO ×2 (07:48→12:00)
[2018-06-26] MEDS: CLOPIDOGREL 75 MG TAB PO (09:27)
[2018-06-26] MEDS: ZIPRASIDONE 20MG CAPSULE (GEODON) PO (09:27)
[2018-06-26] MEDS: METOPROLOL TART 25 MG TABLET PO (09:28)
[2018-06-26] MEDS: ENOXAPARIN 100MG/1ML SYRINGE (J1650) SC (09:29)
[2018-06-26] MEDS: ASPIRIN 81 MG ENTERIC TAB PO (09:29)
[2018-06-26] MEDS: GABAPENTIN 300 MG CAP PO (09:29)
[2018-06-26] MEDS: PANTOPRAZOLE 40MG TAB (PROTONIX) PO (09:29)
[2018-06-26] MEDS: tiZANidine 4 MG TAB PO (09:29)
[2018-06-26] MEDS: INFLUENZA QUADRIVALENT PF VACCINE 0.5ML SYRINGE (90686) IM (10:15)
[2018-06-26] MEDS: traMADol 50 MG TAB PO (12:31)
[2018-06-28 15:46] LABS: HEPATITIS C QUANTITATION HCV Not Detected IU/mL (.)
[2018-06-29 00:07] LABS: ACETAMINOPHEN None Detected ug/mL (10-30); ACETONE Negative % (0.000-0.010); AMITRIPTYLINE None Detected (Not Estab.); BUTALBITAL None Detected ug/mL (1-10); CHLORDIAZEPOXIDE None Detected ug/mL (0.1-0.9); DESIPRAMINE None Detected (Not Estab.); DIAZEPAM None Detected ug/mL (0.1-0.9); DOXEPIN None Detected (Not Estab.); ETHANOL Negative % (0.000-0.010); IMIPRAMINE None Detected (Not Estab.); ISOPROPANOL Negative % (0.000-0.010); METHANOL Negative % (0.000-0.010); NORCHLORDIAZEPOXIDE None Detected ug/mL (0.1-0.6); NORDIAZEPAM None Detected ug/mL (0.1-1.4); NORDOXEPIN None Detected (Not Estab.); NORTRIPTYLINE None Detected (Not Estab.); NORTRIPTYLINE None Detected ng/mL (50-150); PENTOBARBITAL None Detected ug/mL (1-5); PHENOBARBITAL None Detected ug/mL (15-40); PHENYTOIN None Detected ug/mL (10.0-20.0); SALICYLATE None Detected ug/mL (30-250)
== END 2018-06-26 13:29 | disposition short-term general hospital (02) | DRG 190 ==
LOC: M ED 16:08 → M ED INP 20:27 → M PCU 23:15
PROVIDERS: Internal Medicine
DX: I21.4 Non-ST elevation (NSTEMI) myocardial infarction (principal); G92 Toxic encephalopathy; E11.9 Type 2 diabetes mellitus without complications; I10 Essential (primary) hypertension; E78.5 Hyperlipidemia, unspecified; F31.9 Bipolar disorder, unspecified; F41.9 Anxiety disorder, unspecified; Z98.84 Bariatric surgery status; Z79.52 Long term (current) use of systemic steroids; Z79.899 Other long term (current) drug therapy; G43.909 Migraine, unspecified, not intractable, without status migrainosus; K44.9 Diaphragmatic hernia without obstruction or gangrene; Z87.891 Personal history of nicotine dependence; T40.7X5A Adverse effect of cannabis (derivatives), initial encounter; R74.0 Nonspecific elevation of levels of transaminase and lactic acid dehydrogenase [LDH]; F12.10 Cannabis abuse, uncomplicated; Z88.0 Allergy status to penicillin

== ENCOUNTER → 2018-07-05 | Outpatient (CLI) | payer OTHER | LOC: M PAIN 13:00 | DX: M46.1 Sacroiliitis, not elsewhere classified (principal); M50.122 Cervical disc disorder at C5-C6 level with radiculopathy; M79.18 Myalgia, other site; M96.1 Postlaminectomy syndrome, not elsewhere classified; I10 Essential (primary) hypertension; E78.00 Pure hypercholesterolemia, unspecified; E78.1 Pure hyperglyceridemia; F41.9 Anxiety disorder, unspecified; F31.9 Bipolar disorder, unspecified; I25.2 Old myocardial infarction; Z79.899 Other long term (current) drug therapy; Z88.8 Allergy status to other drugs, medicaments and biological substances; Z91.09 Other allergy status, other than to drugs and biological substances; Z87.891 Personal history of nicotine dependence; Z98.84 Bariatric surgery status | CPT/HCPCS: G0463 ==

== ENCOUNTER → 2018-07-18 | Outpatient (CLI) | payer OTHER ==
[2018-07-18 11:56] LABS: HEMATOCRIT 38.4 % (36.0-47.0); HEMOGLOBIN 13.1 g/dl (12.0-15.5); MEAN CORPUSCULAR HEMOGLOBIN 30.8 pg (27.0-33.0); MEAN CORPUSCULAR HGB CONC 34.1 g/dl (32.0-36.5); MEAN CORPUSCULAR VOLUME 90.1 fl (80.0-96.0); PLATELET COUNT, AUTOMATED 213 10^3/uL (150-450); RED BLOOD COUNT 4.26 10^6/uL (4.00-5.40); RED CELL DISTRIBUTION WIDTH 12.1 % (11.5-14.5); WHITE BLOOD COUNT 4.4 10^3/uL (4.0-10.0)
[2018-07-18 12:49] LABS: ANION GAP 6 MEQ/L (8-16); BLOOD UREA NITROGEN 10 MG/DL (7-18); CALCIUM LEVEL 8.8 MG/DL (8.5-10.1); CARBON DIOXIDE LEVEL 27 MEQ/L (21-32); CHLORIDE LEVEL 107 MEQ/L (98-107); CREATININE FOR GFR 0.73 MG/DL (0.55-1.30); GLOMERULAR FILTRATION RATE > 60.0 (>58); GLUCOSE, FASTING 99 MG/DL (70-100); SODIUM LEVEL 140 MEQ/L (136-145); THYROID STIMULATING HORMONE 0.516 uIU/ML (0.358-3.740)
[2018-07-18 13:05] LABS: ESTIMATED AVERAGE GLUCOSE 108 MG/DL (60-110); HEMOGLOBIN A1c 5.4 %
== END ==
LOC: M LAB 11:23
DX: I95.89 Other hypotension (principal)
CPT/HCPCS: 84443

== ENCOUNTER → 2018-07-20 | Outpatient (REF) | payer OTHER | LOC: M SFHCPLAZ 13:17 | DX: R35.0 Frequency of micturition (principal) ==

== ENCOUNTER → 2018-07-31 | Outpatient (CLI) | payer OTHER ==
[~2018-07-31] MED LIST changes: +BUPIVACAINE HCL 0.25% 30 ML VIAL As Ordered; -ISOVUE-370 76% 100ML VIAL (Q9967) As Ordered; +TRIAMCINOLONE ACETONIDE SUSP 40 MG/ML VIAL (J3301) As Ordered; +diazePAM 5 MG TAB As Ordered; +oxyCODONE 5MG TAB As Ordered
== END ==
LOC: M PAIN 14:45
DX: M79.18 Myalgia, other site (principal); I10 Essential (primary) hypertension; R73.03 Prediabetes; E78.2 Mixed hyperlipidemia; F41.9 Anxiety disorder, unspecified; F32.9 Major depressive disorder, single episode, unspecified; I25.2 Old myocardial infarction; Z87.891 Personal history of nicotine dependence; Z98.84 Bariatric surgery status; Z79.891 Long term (current) use of opiate analgesic; Z79.899 Other long term (current) drug therapy; Z88.0 Allergy status to penicillin; Z91.048 Other nonmedicinal substance allergy status
CPT/HCPCS: J3301

== ENCOUNTER → 2018-08-13 | Outpatient (CLI) | payer OTHER ==
[~2018-08-13] MED LIST changes: +ISOVUE-M 300 61% 15ML VIAL (Q9967) As Ordered; +LIDOCAINE 1% SDV INJ 30 ML VIAL As Ordered
== END ==
LOC: M PAIN 11:00
DX: G89.29 Other chronic pain (principal); M46.1 Sacroiliitis, not elsewhere classified; M53.88 Other specified dorsopathies, sacral and sacrococcygeal region; I10 Essential (primary) hypertension; E78.00 Pure hypercholesterolemia, unspecified; F41.9 Anxiety disorder, unspecified; F31.9 Bipolar disorder, unspecified; I25.2 Old myocardial infarction; Z79.899 Other long term (current) drug therapy; Z88.8 Allergy status to other drugs, medicaments and biological substances; Z91.09 Other allergy status, other than to drugs and biological substances; Z98.84 Bariatric surgery status; Z87.891 Personal history of nicotine dependence
CPT/HCPCS: J3301

== ENCOUNTER → 2018-09-14 | Outpatient (CLI) | payer OTHER ==
[~2018-09-14] MED LIST changes: +AMIT25TA PO; +AMIT50TA PO; +AMLO2.5T3 PO; +AMLO5TAB6 PO; +ASPI81TAEC PO; +ATOR1TAB21 PO; -BUPIVACAINE HCL 0.25% 30 ML VIAL As Ordered; +BUPR150T3 PO; +BUPR15TA PO; +BUPR300T34 PO; +CALC500T36 PO; +CLOP75TA2 PO; +DEPO150I IM; +EFFE150C2 PO; +EQL50TAB4 PO; +FAMO1TAB11 PO; +GABA-1171 PO; +GABA800T4 PO; +GLIP5TAB8 PO; +HYDR50TA70 PO; -ISOVUE-M 300 61% 15ML VIAL (Q9967) As Ordered; -LIDOCAINE 1% SDV INJ 30 ML VIAL As Ordered; +LISI40TAB PO; +LITH300C PO; +LITH300T2 PO; +LOPR1TAB7 PO; +LOSA100T50 PO; +LOVE0.8I SC; +METF500T13 PO; +METH4TAB28 PO; +METO1TAB33 PO; +METO1TAB7 PO; +METO1TAB87 PO; +MIRT1TAB PO; +MIRT30TA3 PO; +MOBI4TAB PO; +NAPR-885 PO; +NEUR300C PO; +OXYC-517 PO; +PANT40TA3 PO; +PATIENT COMMENT; +PRAZ2CAP PO; +PRAZ5CAP PO; +PRED20TA PO; +PROT1TAB2 PO; +SUCR1TA PO; +TIZA-208 PO; +TOPA50TA8 PO; +TRAM50TA2 PO; -TRIAMCINOLONE ACETONIDE SUSP 40 MG/ML VIAL (J3301) As Ordered; +VENL225T PO; +VENL50TA2 PO; +VITA50005 PO; +VITMTA PO; +XYZA5TAB2 PO; +ZANA2CAP PO; +ZIPR60CA11 PO; -diazePAM 5 MG TAB As Ordered; -oxyCODONE 5MG TAB As Ordered
[2018-09-18 00:06] LABS: METANEPHRINE PLASMA 31 pg/mL (0-62); NORMETANEPHRINE PLASMA 272 pg/mL (0-145)
== END ==
LOC: M LAB 13:14
PROVIDERS: ATTEND Student in an Organized Health Care Education/Training Program
DX: D35.00 Benign neoplasm of unspecified adrenal gland (principal)

== ENCOUNTER → 2018-09-25 | Outpatient (CLI) | payer OTHER ==
[2018-09-25 13:39] LABS: ALBUMIN 3.3 GM/DL (3.2-5.2); ALT/SGPT 49 U/L (12-78); BILIRUBIN,TOTAL 0.3 MG/DL (0.2-1.0); BLOOD UREA NITROGEN 12 MG/DL (7-18); CALCIUM LEVEL 8.6 MG/DL (8.5-10.1); CARBON DIOXIDE LEVEL 27 MEQ/L (21-32); CHLORIDE LEVEL 105 MEQ/L (98-107); CHOLESTEROL LEVEL 139 MG/DL (<200); CHOLESTEROL RISK RATIO 2.527 (<5); GLOMERULAR FILTRATION RATE > 60.0 (>58); GLUCOSE, FASTING 104 MG/DL (70-100); HDL CHOLESTEROL 55 MG/DL (>40); LDL CHOLESTEROL 68 MG/DL (<100); NON-HDL-C 84 MG/DL; POTASSIUM SERUM 3.7 MEQ/L (3.5-5.1); SODIUM LEVEL 140 MEQ/L (136-145); TRIGLYCERIDES LEVEL 79 MG/DL (<150)
[2018-09-25 15:26] LABS: HEMOGLOBIN A1c 5.2 %
== END ==
LOC: M LAB 12:38
PROVIDERS: ATTEND Student in an Organized Health Care Education/Training Program
DX: R42 Dizziness and giddiness (principal)

== ENCOUNTER → 2018-10-02 | Outpatient (CLI) | payer OTHER ==
--- NOTE | 2018-10-13 00:41 | ECWPNPC ---
PATIENT NAME: DULCE CHOWDHURY : 1975 GENDER: FEMALE VISIT DATE: 10/02/2018 DISCHARGE DATE: 10/02/18 1423 VISIT LOCKED DATE TIME: PHYSICIAN: APOLINAR IRELAND RESOURCE: APOLINAR I[place] REASON FOR APPOINTMENT 1. SW PT, POST PROC HISTORY OF PRESENT ILLNESS HISTORY OF PRESENT ILLNESS: HERE FOR POST PROCEDURE F/U.HAD RIGHT SIJ ON 08/13/18.REPORTING 2-3 WEEKS OF SIGNIFICANT REDUCTION IN PAIN THEN PAIN RETURNED TO BASELINE.PAIN IS LOCATED ACROSS LOW BACK WITH RADIATION INTO RIGHT POSTERIOR THIGH.RATING PAIN VAS 8/10. PAIN THE PATIENT DESCRIBES THE PAIN... FALL RISK SCREENING: SCREENING :NO FALLS IN THE PAST YEAR CURRENT MEDICATIONS TAKING HYDROCHLOROTHIAZIDE 12.5 MG TABLET TAKE ONE TABLET BY MOUTH EVERY DAY ORAL TAKING LEVOCETIRIZINE DIHYDROCHLORIDE 5 MG TABLET 1 TABLET IN THE EVENING ORALLY ONCE A DAY TAKING PRAZOSIN HCL 5 MG CAPSULE 1 CAPSULE AT BEDTIME ORALLY ONCE A DAY TAKING GABAPENTIN 800 MG TABLET 1 TABLET ORALLY THREE TIMES DAILY TAKING LISINOPRIL 5 MG TABLET 1 TABLET ORALLY ONCE A DAY TAKING MECLIZINE HCL 25 MG TABLET 1 TABLET NEEDED ORALLY TID TAKING SUCRALFATE 1 GM TABLET 1 TABLET ON AN EMPTY STOMACH ORALLY FOUR TIMES A DAY TAKING ZIPRASIDONE HCL 60 MG CAPSULE 1 CAPSULE WITH FOOD ORALLY TWICE A DAY TAKING FAMOTIDINE 20 MG TABLET 1 TABLET ORALLY BEFORE BEDTIME AND PRN TAKING VITAMIN D (ERGOCALCIFEROL) 59097 UNIT CAPSULE 1 CAPSULE ORALLY WEEKLY TAKING VITAMIN B-12 500 MCG TABLET 2 TABLETS ORALLY ONCE A DAY TAKING TRAMADOL HCL 50 MG TABLET 1 TABLET NEEDED ORALLY EVERY 6 HRS PRN PAIN MDD=4 TAKING PANTOPRAZOLE SODIUM 40 MG TABLET DELAYED RELEASE TAKE ONE TABLET BY MOUTH TWICE A DAY TAKING ATORVASTATIN CALCIUM 20 MG TABLET TAKE ONE TABLET BY MOUTH EVERY DAY NOT-TAKING NORVASC 2.5MG TABLET ORAL ORALLY DAILY MEDICATION LIST REVIEWED AND RECONCILED WITH THE PATIENT PAST MEDICAL HISTORY HTN BORDERLINE DIABETIC HIGH CHOLESTEROL AND TRIGLYSORIDES ANXIETY AND DEPRESSION BIPOLAR DEPRESSION IN HX ME GASTRIC BYPASS ALLERGIES PCN: RASH: ALLERGY TAPE: RASH: ALLERGY SURGICAL HISTORY D&C 2000 CHOLECYSTECTOMY 2002 HERNIA REPAIR X2 BACK DISCECTOMY LUMBAR REGION 2017 GASTRIC BYPASS 10/06/172017 RIGHT KNEE ARTHROSCOPY 2008 CARDIAC CATHETERIZATION 06/2018 FAMILY HISTORY FATHER: , DIAGNOSED WITH HEART DISEASE, STROKE MOTHER: , DIAGNOSED WITH DIABETES, HEART DISEASE, CANCER 6 BROTHER(S) , 3 SISTER(S) - HEALTHY. 3DAUGHTER(S) - HEALTHY. SOCIAL HISTORY GENERAL: TOBACCO USE ARE YOU A:FORMER SMOKER HOW LONG HAS IT BEEN SINCE YOU LAST SMOKED?1-5 YEARS ALCOHOL SCREENING DID YOU HAVE A DRINK CONTAINING ALCOHOL IN THE PAST YEAR?NO POINTS0 INTERPRETATIONNEGATIVE RECREATIONAL DRUG USE DRUG USE?YES HOW OFTEN AND HOW MUCH? MARIJUANA 2X DAY CAFFEINE CAFFEINE USE?NO SEXUAL HX HAD SEX IN THE LAST 12 MONTHS (VAGINAL, ORAL, OR ANAL)?YES WITHMEN ONLY USE PROTECTION?NO LMP:03/2018 HAVE YOU EVER HAD AN STD?NO HIV / HEP-C SCREENING HIV TEST OFFERED TO PATIENT:YES DATE OFFERED:03/21/2018 TEST ACCEPTED:NO HEP-C TEST OFFERED TO PATIENT:YES DATE OFFERED:03/21/2018 REASON:PATIENT DECLINED TEST ACCEPTED:NO REASON:PATIENT DECLINED BROCHURE PROVIDED TO PATIENTNO AMISH [id number] YAZDANISM LANGUAGE LANGUAGES SPOKEN:MAORI EDUCATION LEVEL OF EDUCATION:HIGH SCHOOL LEARNING BARRIERS / SPECIAL NEEDS BARRIERS TO LEARNING?NO HEARING IMPAIRED?NO VISION IMPAIRED?YES COGNITIVELY IMPAIRED?NO :CORRECTIVE LENSES READINESS TO LEARN?YES LEARNING PREFERENCES?YES :DEMONSTRATION/VERBAL INSTRUCTION LEARNING CAPABILITIES PRESENT?YES EMOTIONAL BARRIERS?NO SPECIAL DEVICES?NO LARD BLEACHER NEEDED?NO DOMESTIC VIOLENCE DO YOU FEEL SAFE IN YOUR ENVIRONMENT?YES 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 MARITAL STATUS: . OTHERS AT HOME: 3 DGTRS AND BOYFRIEND AND CAT. PAIN CLINIC PFS, CLERGY, PUBLIC HEALTH REFERRALS PFS REFERRAL NEEDED?NO CLERGY REFERRAL NEEDED?NO PUBLIC HEALTH REFERRAL NEEDED?NO WAS THE PROVIDER NOTIFIED OF ANY PERTINENT INFO? N/A HAS THE PATIENT BEEN EDUCATED REGARDING HIS/HER PLAN OF CARE?YES HAS THE PATIENT BEEN EDUCATED REGARDING PAIN, THE RISK FOR PAIN, THE IMPORTANCE OF EFFECTIVE PAIN MANAGEMENT, AND THE PAIN ASSESSMENT PROCESS?YES ADVANCE DIRECTIVE ADVANCE DIRECTIVE DISCUSSED WITH PATIENT:YES 10/02/18 PT DOES NOT HAVE ANY ADVANCED DIRECTIVES. PT STATES SHE HAS HCP FORM AND JUST HAS TO DECIDE ON WHO TO APPOINT. HELP OFFERED IN COMPLETING FORM IF SHE NEEDED IT. AD REVIEWED WITH PATIENT 07/05/18 1317 JSREVIEWED WITH PT 07/31/18 1512 BV08/13/18 1220 REVIEWED WITH PT. AD10/02/18 REVIEWED WITH PT. AD. HOSPITALIZATION/MAJOR DIAGNOSTIC PROCEDURE SURGERY RELATED IN PT MENTAL HEALTH 1999 CHEST PAIN 03/07/2018 ME 06/2018 REVIEW OF SYSTEMS REVIEWED BY: PROVIDER: APOLINAR KEANE . CONSTITUTIONAL: ANY CHANGE IN YOUR MEDICAL CONDITION? NO . CHILLS NO . FEVER NO . INFECTION: DO YOU HAVE NEW INFECTIONS? NO . DO YOU HAVE HISTORY OF MRSA? NO . MUSCULOSKELETAL: ANY NEW PATTERNS OF PAIN OR NUMBNESS? NO . GASTROENTEROLOGY: ANY NEW CHANGE IN BOWEL CONTROL? NO . GENITOURINARY: ANY NEW CHANGE IN BLADDER CONTROL? NO . IS THERE A CHANCE YOU COULD BE ? NO . HEMATOLOGY/LYMPH: DO YOU TAKE ANY BLOOD THINNERS? (FOR EXAMPLE- COUMADIN, PLAVIX, AGGRENOX, PLATEL, PRADAXA, OR XARELTO) NO . WHEN WAS YOUR LAST DOSE? DATE: TIME: . NEUROLOGY: HAVE YOU FALLEN IN THE PAST 12 MONTHS? NO . ANY NEW EXTREMITY NUMBNESS OR WEAKNESS? NO . CARDIOLOGY: DO YOU HAVE A PACEMAKER OR DEFIBRILLATOR? NO . RESPIRATORY: HAVE YOU BEEN SICK IN THE PAST WEEK? NO . FEVER NO . FLU LIKE SYMPTOMS? NO . COUGH NO . INTEGUMENTARY: DO YOU HAVE ANY RASHES OR OPEN SORES? NO . ALLERGIC/IMMUNO: ARE YOU ALLERGIC TO IV DYE? NO . ANY NEW ALLERGIES? NO . PSYCHIATRIC: DO YOU HAVE THOUGHTS OF HURTING YOURSELF OR SOMEONE ELSE? NO . ARE YOU ABUSED, NEGLECTED, OR IN AN UNSAFE ENVIRONMENT? NO . ENDOCRINOLOGY: ARE YOU DIABETIC? NO . OTHER: DO YOU NEED ANY PRESCRIPTIONS? STATED SHE WILL CALL WHEN SHE NEEDSR REFILLS . IF YES, PLEASE LIST: ____ . ANY NEW PROBLEMS WITH YOUR MEDICATIONS? NO . WHEN DID YOU LAST EAT? ____ . WHEN DID YOU LAST DRINK? ____ . WHAT DID YOU LAST DRINK? ____ . NAME OF PERSON DRIVING YOU HOME? ____ . DO YOU HAVE ANY OTHER QUESTIONS OR CONCERNS NO . VITAL SIGNS WT 181.8 LBS, HT 67", BMI 28.47 INDEX, BP 124/78 MM HG, HR 112 BRAYDEN 96 AD, RR 18 /MIN, TEMP 97.5 F, OXYGEN SAT % 100%, SAFE IN ENV? (Y/N) Y, NA INITIALS SC 13:38, REVIEWED BY: AD. EXAMINATION GENERAL EXAMINATION: GENERAL APPEARANCE:ALERT,NO DISTRESS . PSYCHAFFECT NORMAL . LUNGS:LUNG SOUNDS ARE CLEAR . HEART:HEART RATE REGULAR . MUSCULOSKELETAL:MST 5/5 BILAT. LOWER EXTREMITIES . LUMBAR SACRAL SPINETENDERNESS RIGHT SIJ .WELL HEALED SURGICAL SCAR L/S SPINE. DIAGNOSTIC TESTS REVIEWEDMRI L/S [id number] . ASSESSMENTS SACROILIITIS - M46.1 (PRIMARY) TREATMENT SACROILIITIS REFILL TRAMADOL HCL TABLET, 50 MG, 1 TABLET NEEDED, ORALLY, EVERY 6 HRS PRN PAIN MDD=4, 30 DAY(S), 120, REFILLS 2 NOTES: RIGHT SIJ. PREVENTIVE MEDICINE PAIN CLINIC TEACHING: PROCEDURE TEACHING PRE-PROCEDURE INSTRUCTIONS REVIEWED WITH PT. BY Garfield JONES RN. AD. PROCEDURE CODES FA211 ESTABILISHED PATIENT [facility] CHARGE DISPOSITION & COMMUNICATION FOLLOW UP POST (REASON: RIGHT SIJ) ELECTRONICALLY SIGNED BY LAKHWINDER ORTIZ ON 10/12/2018 AT 09:06 AM EST DISCLAIMER : THIS IS A VISIT SUMMARY EXTRACTED FROM THE [employer] CHART. IT IS NOT A COPY OF THE [employer] PROGRESS NOTE. YONI
== END ==
LOC: M PAIN 13:30
PROVIDERS: ATTEND Nurse Practitioner Family
DX: M46.1 Sacroiliitis, not elsewhere classified (principal); I10 Essential (primary) hypertension; E78.5 Hyperlipidemia, unspecified; F32.9 Major depressive disorder, single episode, unspecified; F41.9 Anxiety disorder, unspecified; I25.2 Old myocardial infarction; Z98.84 Bariatric surgery status; Z87.891 Personal history of nicotine dependence; Z88.0 Allergy status to penicillin; Z91.09 Other allergy status, other than to drugs and biological substances; Z79.899 Other long term (current) drug therapy

== ENCOUNTER → 2018-11-14 | Outpatient (CLI) | payer OTHER ==
[~2018-11-14] MED LIST changes: +BUPIVACAINE HCL 0.25% 30 ML VIAL As Ordered ONE; +ISOVUE-M 300 61% 15ML VIAL (Q9967) As Ordered ONE; +LIDOCAINE 1% SDV INJ 30 ML VIAL As Ordered ONE; +TRIAMCINOLONE ACETONIDE SUSP 40 MG/ML VIAL (J3301) As Ordered ONE; +diazePAM 5 MG TAB As Ordered ONE; +oxyCODONE 5MG TAB As Ordered ONE
--- NOTE | 2018-11-14 15:05 | REP ---
SI joint series: Three views. History: Right SI joint injection for pain. 20 seconds of fluoroscopy time reported. Findings: A sequence of three last image hold fluoroscopically obtained spot radiographs of the right SI joint document needle position for SI joint injection procedure. Electronically Signed by Del Osullivan MD 11/14/2018 05:07 P
--- NOTE | 2018-11-25 00:19 | ECWPNPC ---
PATIENT NAME: DULCE CHOWDHURY : 1975 GENDER: FEMALE VISIT DATE: 11/14/2018 DISCHARGE DATE: 11/14/18 1429 VISIT LOCKED DATE TIME: PHYSICIAN: RIKKI JUAREZ MD RESOURCE: RIKKI JUAREZ MD REASON FOR APPOINTMENT 1. RIGHT SIJ WILL BE FEW MINS LATE HISTORY OF PRESENT ILLNESS HISTORY OF PRESENT ILLNESS: PAIN THE PATIENT DESCRIBES THE PAIN... FALL RISK SCREENING: SCREENING : NO FALLS IN THE PAST YEAR. CURRENT MEDICATIONS TAKING HYDROCHLOROTHIAZIDE 12.5 MG TABLET 1 TAB ORAL DAILY, NOTES: 11/13/18 TAKING LEVOCETIRIZINE DIHYDROCHLORIDE 5 MG TABLET 1 TABLET IN THE EVENING ORALLY ONCE A DAY, NOTES: NOT YET TAKING PRAZOSIN HCL 5 MG CAPSULE 1 CAPSULE AT BEDTIME ORALLY ONCE A DAY, NOTES: 11/13/18 TAKING GABAPENTIN 800 MG TABLET 1 TABLET ORALLY THREE TIMES DAILY, NOTES: 11/13/18 TAKING LISINOPRIL 5 MG TABLET 1 TABLET ORALLY ONCE A DAY, NOTES: 11/13/18 TAKING MECLIZINE HCL 25 MG TABLET 1 TABLET NEEDED ORALLY TID, NOTES: 11/13/18 TAKING SUCRALFATE 1 GM TABLET 1 TABLET ON AN EMPTY STOMACH ORALLY FOUR TIMES A DAY, NOTES: 11/13/18 TAKING ZIPRASIDONE HCL 60 MG CAPSULE 1 CAPSULE WITH FOOD ORALLY TWICE A DAY, NOTES: 11/13/18 TAKING FAMOTIDINE 20 MG TABLET 1 TABLET ORALLY BEFORE BEDTIME AND PRN, NOTES: 11/13/18 TAKING VITAMIN D (ERGOCALCIFEROL) 67809 UNIT CAPSULE 1 CAPSULE ORALLY WEEKLY, NOTES: 11/09/18 TAKING VITAMIN B-12 500 MCG TABLET 2 TABLETS ORALLY ONCE A DAY, NOTES: 11/13/18 TAKING PANTOPRAZOLE SODIUM 40 MG TABLET DELAYED RELEASE TAKE ONE TABLET BY MOUTH TWICE A DAY , NOTES: 11/13/18 TAKING ATORVASTATIN CALCIUM 20 MG TABLET TAKE ONE TABLET BY MOUTH EVERY DAY , NOTES: 11/13/18 TAKING AMITRIPTYLINE HCL 50 MG TABLET 1 TABLET ORALLY ONCE A DAY, NOTES: 11/13/18 TAKING KLONOPIN 0.5 MG TABLET 1 TABLET AT BEDTIME ORALLY ONCE A DAY, NOTES: 11/13/18 TAKING TRAMADOL HCL 50 MG TABLET 1 TABLET NEEDED ORALLY EVERY 6 HRS PRN PAIN MDD=4, NOTES: 11/13/18 TAKING TIZANIDINE HCL 4 MG TABLET 1 TABLET NEEDED ORALLY THREE TIMES A DAY, NOTES: 11/13/18 TAKING XYZAL ALLERGY 24HR 5 MG TABLET 1 TABLET IN THE EVENING ORALLY ONCE A DAY, NOTES: 11/13/18 NOT-TAKING NORVASC 2.5MG TABLET ORAL ORALLY DAILY DISCONTINUED GABAPENTIN 800 MG TABLET TAKE ONE TABLET BY MOUTH THREE TIMES A DAY MEDICATION LIST REVIEWED AND RECONCILED WITH THE PATIENT PAST MEDICAL HISTORY HTN BORDERLINE DIABETIC HIGH CHOLESTEROL AND TRIGLYSORIDES ANXIETY AND DEPRESSION BIPOLAR DEPRESSION IN HX IA GASTRIC BYPASS ALLERGIES PCN: RASH: ALLERGY TAPE: RASH: ALLERGY SURGICAL HISTORY D&C 2000 CHOLECYSTECTOMY 2002 HERNIA REPAIR X2 BACK DISCECTOMY LUMBAR REGION 2017 GASTRIC BYPASS 10/06/172017 RIGHT KNEE ARTHROSCOPY 2007 CARDIAC CATHETERIZATION 06/2018 FAMILY HISTORY FATHER: , DIAGNOSED WITH HEART DISEASE, STROKE MOTHER: , DIAGNOSED WITH DIABETES, HEART DISEASE, CANCER 6 BROTHER(S) , 3 SISTER(S) - HEALTHY. 3DAUGHTER(S) - HEALTHY. SOCIAL HISTORY GENERAL: TOBACCO USE ARE YOU A:FORMER SMOKER HOW LONG HAS IT BEEN SINCE YOU LAST SMOKED?1-5 YEARS ALCOHOL SCREENING DID YOU HAVE A DRINK CONTAINING ALCOHOL IN THE PAST YEAR?NO POINTS0 INTERPRETATIONNEGATIVE RECREATIONAL DRUG USE DRUG USE?YES HOW OFTEN AND HOW MUCH? MARIJUANA 2X DAY CAFFEINE CAFFEINE USE?NO SEXUAL HX HAD SEX IN THE LAST 12 MONTHS (VAGINAL, ORAL, OR ANAL)?YES WITHMEN ONLY USE PROTECTION?NO LMP:03/2018 HAVE YOU EVER HAD AN STD?NO HIV / HEP-C SCREENING HIV TEST OFFERED TO PATIENT:YES DATE OFFERED:03/21/2018 TEST ACCEPTED:NO HEP-C TEST OFFERED TO PATIENT:YES DATE OFFERED:03/21/2018 REASON:PATIENT DECLINED TEST ACCEPTED:NO REASON:PATIENT DECLINED BROCHURE PROVIDED TO PATIENTNO CAODAISM [id number] SCIENTOLOGIST LANGUAGE LANGUAGES SPOKEN:NEPALESE EDUCATION LEVEL OF EDUCATION:HIGH SCHOOL LEARNING BARRIERS / SPECIAL NEEDS BARRIERS TO LEARNING?NO HEARING IMPAIRED?NO VISION IMPAIRED?YES COGNITIVELY IMPAIRED?NO :CORRECTIVE LENSES READINESS TO LEARN?YES LEARNING PREFERENCES?YES :DEMONSTRATION/VERBAL INSTRUCTION LEARNING CAPABILITIES PRESENT?YES EMOTIONAL BARRIERS?NO SPECIAL DEVICES?NO CHIEF SCHOOL FINANCE OFFICER NEEDED?NO DOMESTIC VIOLENCE DO YOU FEEL SAFE IN YOUR ENVIRONMENT?YES 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 MARITAL STATUS: . OTHERS AT HOME: 3 DGTRS AND BOYFRIEND AND CAT. PAIN CLINIC PFS, CLERGY, PUBLIC HEALTH REFERRALS PFS REFERRAL NEEDED?NO CLERGY REFERRAL NEEDED?NO PUBLIC HEALTH REFERRAL NEEDED?NO WAS THE PROVIDER NOTIFIED OF ANY PERTINENT INFO? N/A HAS THE PATIENT BEEN EDUCATED REGARDING HIS/HER PLAN OF CARE?YES HAS THE PATIENT BEEN EDUCATED REGARDING PAIN, THE RISK FOR PAIN, THE IMPORTANCE OF EFFECTIVE PAIN MANAGEMENT, AND THE PAIN ASSESSMENT PROCESS?YES ADVANCE DIRECTIVE ADVANCE DIRECTIVE DISCUSSED WITH PATIENT:YES PT DOES NOT HAVE ANY ADVANCED DIRECTIVES. PT STATES SHE HAS HCP FORM AND JUST HAS TO DECIDE ON WHO TO APPOINT. HELP OFFERED IN COMPLETING FORM IF SHE NEEDED IT. REVIEWED WITH PATIENT 07/05/18 1317 JSREVIEWED WITH PT 07/31/18 1512 BV08/13/18 1220 REVIEWED WITH PT. AD10/02/18 REVIEWED WITH PT. AD. HOSPITALIZATION/MAJOR DIAGNOSTIC PROCEDURE SURGERY RELATED IN PT MENTAL HEALTH 2000 CHEST PAIN 03/07/2018 [place] 06/2018 REVIEW OF SYSTEMS REVIEWED BY: PROVIDER: . CONSTITUTIONAL: ANY CHANGE IN YOUR MEDICAL CONDITION? NO . CHILLS NO . FEVER NO . INFECTION: DO YOU HAVE NEW INFECTIONS? NO . DO YOU HAVE HISTORY OF MRSA? NO . MUSCULOSKELETAL: ANY NEW PATTERNS OF PAIN OR NUMBNESS? NO . GASTROENTEROLOGY: ANY NEW CHANGE IN BOWEL CONTROL? NO . GENITOURINARY: ANY NEW CHANGE IN BLADDER CONTROL? NO . IS THERE A CHANCE YOU COULD BE ? NO . HEMATOLOGY/LYMPH: DO YOU TAKE ANY BLOOD THINNERS? (FOR EXAMPLE- COUMADIN, PLAVIX, AGGRENOX, PLATEL, PRADAXA, OR XARELTO) NO . WHEN WAS YOUR LAST DOSE? DATE: TIME: . NEUROLOGY: HAVE YOU FALLEN IN THE PAST 12 MONTHS? NO . ANY NEW EXTREMITY NUMBNESS OR WEAKNESS? NO . CARDIOLOGY: DO YOU HAVE A PACEMAKER OR DEFIBRILLATOR? NO . RESPIRATORY: HAVE YOU BEEN SICK IN THE PAST WEEK? NO . FEVER NO . FLU LIKE SYMPTOMS? NO . COUGH NO . INTEGUMENTARY: DO YOU HAVE ANY RASHES OR OPEN SORES? NO . ALLERGIC/IMMUNO: ARE YOU ALLERGIC TO IV DYE? NO . ANY NEW ALLERGIES? NO . PSYCHIATRIC: DO YOU HAVE THOUGHTS OF HURTING YOURSELF OR SOMEONE ELSE? NO . ARE YOU ABUSED, NEGLECTED, OR IN AN UNSAFE ENVIRONMENT? NO . ENDOCRINOLOGY: ARE YOU DIABETIC? NO . OTHER: DO YOU NEED ANY PRESCRIPTIONS? NO . IF YES, PLEASE LIST: ____ . ANY NEW PROBLEMS WITH YOUR MEDICATIONS? NO . WHEN DID YOU LAST EAT? 11/13/18 1830 . WHEN DID YOU LAST DRINK? 11/14/18 0730 . WHAT DID YOU LAST DRINK? TEA . NAME OF PERSON DRIVING YOU HOME? JOSE . DO YOU HAVE ANY OTHER QUESTIONS OR CONCERNS NO . VITAL SIGNS WT 186.2 LBS, HT 67", BMI 29.16 INDEX, BP 116/76 MM HG, HR 92 /MIN, RR 18 /MIN, TEMP 98.3 F, OXYGEN SAT % 97%, NA INITIALS AW 1158, REVIEWED BY: EM. ASSESSMENTS SACROILIITIS - M46.1 (PRIMARY) TREATMENT SACROILIITIS [facility] FLUORO GUIDANCE (PAIN)[id number] PROCEDURES PN SI PRE PROCEDURE DIAGNOSIS SACROILIITIS, SACROILIAC JOINT DYSFUNCTION POST PROCEDURE DIAGNOSIS SACROILIITIS, SACROILIAC JOINT DYSFUNCTION PROCEDURE RIGHT SACROILIAC JOINT BLOCK SURGEON DR. RIKKI JUAREZ POOL MANAGER NONE ANESTHESIA LOCAL PRE PROCEDURE NOTE PATIENT WITH HISTORY OF CHRONIC LOW BACK PAIN. I EVALUATED THE PATIENT AND REVIEWED THE CHART. I WENT OVER THE RISKS, ALTERNATIVES, AND BENEFITS ASSOCIATED WITH THIS PROCEDURE. THE PATIENT WOULD LIKE TO PROCEED AND GAVE CONSENT TO PERFORM THE PROCEDURE. THE PATIENT DENIES UNEXPLAINABLE WEIGHT LOSS, FEVER, CHILLS, OR NEW CHANGES IN URINARY OR BOWEL CONTROL DESCRIPTION OF PROCEDURE THE PATIENT WAS BROUGHT TO THE PROCEDURE ROOM AND PLACED IN THE PRONE POSITION. THE LUMBOSACRAL AREA WAS CLEANED WITH CHLORAPREP SOLUTION AND DRAPED ASEPTICALLY. THE PROCEDURE WAS DONE UNDER STERILE CONDITIONS. I CHECKED LATERALITY AND THE LEVEL WHERE THE PROCEDURE WAS GOING TO BE PERFORMED WITH THE PATIENT AND THE SUPPORTING STAFF AT THE MOMENT OF THE TIME OUT IN THE PROCEDURE ROOM. UNDER FLUOROSCOPIC GUIDANCE, TARGET POINT WAS SELECTED AT THE LOWER BORDER OF THE RIGHT SACROILIAC JOINT. TARGET POINT WAS SELECTED AFTER MEDIAL ROTATION AND TILT OF THE MAGNIFIER OF THE C-ARM. LIDOCAINE WAS USED TO NUMB THE SKIN AND SUBCUTANEOUS TISSUE BELOW IT. A SPINAL NEEDLE, 22-GAUGE, WAS ADVANCED UNDER FLUOROSCOPIC GUIDANCE AND FOLLOWING PATIENT FEEDBACK UNTIL THE TARGET AREA WAS TOUCHED. THE POSITION OF THE NEEDLE WAS VERIFIED WITH AP AND LATERAL VIEWS. AFTER PROPER POSITION OF THE NEEDLE WAS ACHIEVED, ISOVUE M DYE 30%, 0.25 ML, WAS INJECTED SHOWING SPREAD OF THE DYE. THEN, A SOLUTION OF 20 MG OF KENALOG WAS INJECTED IN RIGHT JOINT WITH 3 ML OF BUPIVACAINE 0.125%. THERE WAS NO EVIDENCE OF BLOOD, PARESTHESIA OR CEREBROSPINAL FLUID DURING THE PROCEDURE. THE PATIENT WAS SENT TO THE RECOVERY ROOM. THE PATIENT WAS MOVING THE EXTREMITIES AND DOING WELL. THERE WAS NO COMPLICATION DURING THE PROCEDURE. FLUOROSCOPY TIME WAS 20 SECONDS POST PROCEDURE NOTE THE PATIENT WILL BE SEEN IN A FOLLOW UP IN THE NEXT FEW WEEKS. INSTRUCTIONS WERE GIVEN, QUESTIONS WERE ANSWERED, AND THE PATIENT EXPRESSED UNDERSTANDING AND AGREED WITH THE PLAN. I, AXEL MORIN, DOCUMENTED THE ABOVE INFORMATION ACTING A SCRIBE FOR DR. JUAREZ. I HAVE REVIEWED THE ABOVE DOCUMENT, WRITTEN BY AXEL CHEATHAMIBRaymundo AND I VERIFY THAT IT IS ACCURATE. PROCEDURE CODES 6045F RADXPS IN END [id number] [id number] INJECT SACROILIAC JOINT, MODIFIERS: RT DISPOSITION & COMMUNICATION FOLLOW UP 3 WEEKS ELECTRONICALLY SIGNED BY RIKKI JUAREZ MD, MD ON 11/24/2018 AT 07:57 PM EDT DISCLAIMER : THIS IS A VISIT SUMMARY EXTRACTED FROM THE [employer] CHART. IT IS NOT A COPY OF THE [employer] PROGRESS NOTE. YONI
== END ==
LOC: M PAIN 11:30
PROVIDERS: ATTEND Anesthesiology
DX: G89.29 Other chronic pain (principal); M46.1 Sacroiliitis, not elsewhere classified; M53.88 Other specified dorsopathies, sacral and sacrococcygeal region; I10 Essential (primary) hypertension; E78.00 Pure hypercholesterolemia, unspecified; E78.1 Pure hyperglyceridemia; I25.2 Old myocardial infarction; Z79.899 Other long term (current) drug therapy; Z87.891 Personal history of nicotine dependence; Z98.84 Bariatric surgery status; Z86.79 Personal history of other diseases of the circulatory system; Z86.59 Personal history of other mental and behavioral disorders
CPT/HCPCS: 27096; J3301; Q9967

== ENCOUNTER → 2018-11-21 | Outpatient (CLI) | payer OTHER ==
[~2018-11-21] MED LIST changes: -BUPIVACAINE HCL 0.25% 30 ML VIAL As Ordered ONE; -ISOVUE-M 300 61% 15ML VIAL (Q9967) As Ordered ONE; -LIDOCAINE 1% SDV INJ 30 ML VIAL As Ordered ONE; -TRIAMCINOLONE ACETONIDE SUSP 40 MG/ML VIAL (J3301) As Ordered ONE; -diazePAM 5 MG TAB As Ordered ONE; -oxyCODONE 5MG TAB As Ordered ONE
--- NOTE | 2018-11-21 08:20 | REP ---
Clinical: Right knee pain. Technique: AP, lateral, bilateral oblique and sunrise views of the right knee. Findings: Advanced tricompartmental osteoarthritic degenerative changes include subchondral sclerosis, joint space narrowing, and diffuse osteophytosis. Evidence for bipartite patella. Joint effusion cannot be excluded. No obvious acute fracture or dislocation. Impression: Advanced tricompartmental osteoarthritic degenerative changes. Electronically Signed by Jessee Seymour MD 11/21/2018 08:12 A
== END ==
LOC: M RAD 07:41
PROVIDERS: ATTEND Student in an Organized Health Care Education/Training Program
DX: M25.561 Pain in right knee (principal)

== ENCOUNTER → 2018-12-24 | Outpatient (CLI) | payer OTHER ==
[~2018-12-24] MED LIST changes: +CALC12504 PO; -CALC500T36 PO; -EQL50TAB4 PO; +LISI40TA52 PO; -LISI40TAB PO; -TIZA-208 PO; +TIZA4TAB4 PO; -VENL225T PO; +VENL225T5 PO; +ZINC1TAB2 PO
--- NOTE | 2018-12-26 01:56 | ECWPNPC ---
PATIENT NAME: DULCE CHOWDHURY : 1975 GENDER: FEMALE VISIT DATE: 12/24/2018 DISCHARGE DATE: 12/24/18 1441 VISIT LOCKED DATE TIME: PHYSICIAN: FELISHA BAY RESOURCE: FELISHA BAY REASON FOR APPOINTMENT 1. POST PROCE HISTORY OF PRESENT ILLNESS HISTORY OF PRESENT ILLNESS: PAIN THE PATIENT DESCRIBES THE PAIN... 43 Y ROLD PT HERE TO F/U POST SIJ BLOCK.PATIENT SAYS SHE DID HAVE > 70 % PAIN REDUCTION FOR THE FIRST 2 DAYS.SHE SAYS THE PAIN RETURNED TO 7/10 AFTER 48 HOURS. FALL RISK SCREENING: SCREENING :NO FALLS REPORTED IN THE LAST YEAR CURRENT MEDICATIONS TAKING HYDROCHLOROTHIAZIDE 12.5 MG TABLET 1 TAB ORAL DAILY TAKING LEVOCETIRIZINE DIHYDROCHLORIDE 5 MG TABLET 1 TABLET IN THE EVENING ORALLY ONCE A DAY TAKING PRAZOSIN HCL 5 MG CAPSULE 1 CAPSULE AT BEDTIME ORALLY ONCE A DAY TAKING GABAPENTIN 800 MG TABLET 1 TABLET ORALLY THREE TIMES DAILY TAKING LISINOPRIL 5 MG TABLET 1 TABLET ORALLY ONCE A DAY TAKING MECLIZINE HCL 25 MG TABLET 1 TABLET NEEDED ORALLY TID TAKING ZIPRASIDONE HCL 60 MG CAPSULE 1 CAPSULE WITH FOOD ORALLY TWICE A DAY TAKING FAMOTIDINE 20 MG TABLET 1 TABLET ORALLY BEFORE BEDTIME AND PRN TAKING VITAMIN D (ERGOCALCIFEROL) 21539 UNIT CAPSULE 1 CAPSULE ORALLY WEEKLY TAKING VITAMIN B-12 500 MCG TABLET 2 TABLETS ORALLY ONCE A DAY TAKING AMITRIPTYLINE HCL 50 MG TABLET 1 TABLET ORALLY ONCE A DAY TAKING TRAMADOL HCL 50 MG TABLET 1 TABLET NEEDED ORALLY EVERY 6 HRS PRN PAIN MDD=4 TAKING TIZANIDINE HCL 4 MG TABLET 1 TABLET NEEDED ORALLY THREE TIMES A DAY TAKING ATORVASTATIN CALCIUM 20 MG TABLET TAKE ONE TABLET BY MOUTH EVERY DAY TAKING PANTOPRAZOLE SODIUM 40 MG TABLET DELAYED RELEASE TAKE ONE TABLET BY MOUTH TWICE A DAY TAKING KLONOPIN 0.5 MG TABLET 1 TABLET AT BEDTIME ORALLY ONCE A DAY NOT-TAKING NORVASC 2.5MG TABLET ORAL ORALLY DAILY DISCONTINUED SUCRALFATE 1 GM TABLET 1 TABLET ON AN EMPTY STOMACH ORALLY FOUR TIMES A DAY DISCONTINUED XYZAL ALLERGY 24HR 5 MG TABLET 1 TABLET IN THE EVENING ORALLY ONCE A DAY, NOTES: DUPLICATE MEDICATION LIST REVIEWED AND RECONCILED WITH THE PATIENT PAST MEDICAL HISTORY HTN BORDERLINE DIABETIC HIGH CHOLESTEROL AND TRIGLYSORIDES ANXIETY AND DEPRESSION BIPOLAR DEPRESSION IN HX CT GASTRIC BYPASS ALLERGIES PCN: RASH - ALLERGY TAPE: RASH - ALLERGY SURGICAL HISTORY D&C 2001 CHOLECYSTECTOMY 2002 HERNIA REPAIR X2 BACK DISCECTOMY LUMBAR REGION 2017 GASTRIC BYPASS 10/06/172017 RIGHT KNEE ARTHROSCOPY 2008 CARDIAC CATHETERIZATION 06/2018 FAMILY HISTORY FATHER: , DIAGNOSED WITH HEART DISEASE, STROKE MOTHER: , CANCER, DIABETES, HEART DISEASE 6 BROTHER(S) , 3 SISTER(S) - HEALTHY. 3DAUGHTER(S) - HEALTHY. SOCIAL HISTORY GENERAL: TOBACCO USE ARE YOU A:FORMER SMOKER HOW LONG HAS IT BEEN SINCE YOU LAST SMOKED?1-5 YEARS LATEX QUESTIONNAIRE LATEX ALLERGY : HAVE YOU EVER DEVELOPED ANY TYPE OF REACTION AFTER HANDLING LATEX PRODUCTS SUCH RUBBER GLOVES, CONDOMS, DIAPHRAGMS, BALLOONS, SOCKS, OR UNDERWEAR?NO LATEX ALLERGY : HAVE YOU EVER DEVELOPED ANY TYPE OF REACTION DURING OR AFTER DENTAL APPOINTMENT, VAGINAL/RECTAL EXAMINATION, SURGICAL PROCEDURE, OR ANY OTHER EXPOSURE?NO LATEX RISK : HAVE YOU EVER HAD ANY DIFFICULTY BREATHING OR HIVES AFTER EATING OR HANDLING ANY FRUITS, OR VEGETABLES; SUCH KIWI, BANANAS, STONE FRUITS, OR CHESTNUTSNO LATEX RISK : DO YOU HAVE A PREVIOUS PERSONAL HISTORY OF MORE THAN NINE SURGERIES, SPINA BIFIDA, OR REPEATED CATHERTIZATIONS? NO LATEX RISK : ARE YOU FREQUENTLY EXPOSED TO LATEX PRODUCTS IN YOUR OCCUPATION?NO DATE ASKED : 12/24/2018 ALCOHOL SCREENING DID YOU HAVE A DRINK CONTAINING ALCOHOL IN THE PAST YEAR?NO POINTS0 INTERPRETATIONNEGATIVE RECREATIONAL DRUG USE DRUG USE?YES HOW OFTEN AND HOW MUCH? [place]IJ[place] 2X DAY CAFFEINE CAFFEINE USE?NO SEXUAL HX HAD SEX IN THE LAST 12 MONTHS (VAGINAL, ORAL, OR ANAL)?YES WITHMEN ONLY USE PROTECTION?NO LMP:03/2018 HAVE YOU EVER HAD AN STD?NO HIV / HEP-C SCREENING HIV TEST OFFERED TO PATIENT:YES DATE OFFERED:03/21/2018 TEST ACCEPTED:NO HEP-C TEST OFFERED TO PATIENT:YES DATE OFFERED:03/21/2018 REASON:PATIENT DECLINED TEST ACCEPTED:NO REASON:PATIENT DECLINED BROCHURE PROVIDED TO PATIENTNO CONGREGATION ATPYSYRB64 CONGREGATION LANGUAGE LANGUAGES SPOKEN:HUNGARIAN EDUCATION LEVEL OF EDUCATION:HIGH SCHOOL LEARNING BARRIERS / SPECIAL NEEDS BARRIERS TO LEARNING?NO HEARING IMPAIRED?NO VISION IMPAIRED?YES COGNITIVELY IMPAIRED?NO :CORRECTIVE LENSES READINESS TO LEARN?YES LEARNING PREFERENCES?YES :DEMONSTRATION/VERBAL INSTRUCTION LEARNING CAPABILITIES PRESENT?YES EMOTIONAL BARRIERS?NO SPECIAL DEVICES?NO CLERICAL MANAGER NEEDED?NO DOMESTIC VIOLENCE DO YOU FEEL SAFE IN YOUR ENVIRONMENT?YES 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 MARITAL STATUS: . OTHERS AT HOME: 3 DGTRS AND BOYFRIEND AND CAT. PAIN CLINIC PFS, CLERGY, PUBLIC HEALTH REFERRALS PFS REFERRAL NEEDED?NO CLERGY REFERRAL NEEDED?NO PUBLIC HEALTH REFERRAL NEEDED?NO WAS THE PROVIDER NOTIFIED OF ANY PERTINENT INFO?YES N/A HAS THE PATIENT BEEN EDUCATED REGARDING HIS/HER PLAN OF CARE?YES HAS THE PATIENT BEEN EDUCATED REGARDING PAIN, THE RISK FOR PAIN, THE IMPORTANCE OF EFFECTIVE PAIN MANAGEMENT, AND THE PAIN ASSESSMENT PROCESS?YES ADVANCE DIRECTIVE ADVANCE DIRECTIVE DISCUSSED WITH PATIENT:YES PT DOES NOT HAVE ANY ADVANCED DIRECTIVES.PT DECLINES INFO AND ASSISTANCE WITH FORM. 12/24/18 REVIEWED WITH PATIENT 07/05/18 1317 JSREVIEWED WITH PT 07/31/18 1512 BV08/13/18 1220 REVIEWED WITH PT. AD10/02/18 REVIEWED WITH PT. ADREVIEWED WITH PT 12/24/18 1342 BV. HOSPITALIZATION/MAJOR DIAGNOSTIC PROCEDURE SURGERY RELATED IN PT MENTAL HEALTH 1999 CHEST PAIN 03/07/2018 CT 06/2018 REVIEW OF SYSTEMS REVIEWED BY: PROVIDER: CATHRYN Herrera CONSTITUTIONAL: ANY CHANGE IN YOUR MEDICAL CONDITION? NO . CHILLS NO . FEVER NO . INFECTION: DO YOU HAVE NEW INFECTIONS? NO . DO YOU HAVE HISTORY OF MRSA? NO . MUSCULOSKELETAL: ANY NEW PATTERNS OF PAIN OR NUMBNESS? NO . GASTROENTEROLOGY: ANY NEW CHANGE IN BOWEL CONTROL? NO . GENITOURINARY: ANY NEW CHANGE IN BLADDER CONTROL? NO . IS THERE A CHANCE YOU COULD BE ? NO . HEMATOLOGY/LYMPH: DO YOU TAKE ANY BLOOD THINNERS? (FOR EXAMPLE- COUMADIN, PLAVIX, AGGRENOX, PLATEL, PRADAXA, OR XARELTO) NO . WHEN WAS YOUR LAST DOSE? DATE: TIME: . NEUROLOGY: HAVE YOU FALLEN IN THE PAST 12 MONTHS? YES, DENIES ANY INJURIES, PT STATES PREVIOUS FALLS HAVE BEEN DOCUMENTED. DENIES ANY FALLS SINCE LAST VISIT. . ANY NEW EXTREMITY NUMBNESS OR WEAKNESS? NO . CARDIOLOGY: DO YOU HAVE A PACEMAKER OR DEFIBRILLATOR? NO . RESPIRATORY: HAVE YOU BEEN SICK IN THE PAST WEEK? YES . FEVER YES, COUGH DRY INTERMITTENT FOR THE PAST WEEK, DENIES ANY FEVER AND DENIES OTHER SYMPTOMS . FLU LIKE SYMPTOMS? NO . COUGH NO . INTEGUMENTARY: DO YOU HAVE ANY RASHES OR OPEN SORES? NO . ALLERGIC/IMMUNO: ARE YOU ALLERGIC TO IV DYE? NO . ANY NEW ALLERGIES? NO . PSYCHIATRIC: DO YOU HAVE THOUGHTS OF HURTING YOURSELF OR SOMEONE ELSE? NO . ARE YOU ABUSED, NEGLECTED, OR IN AN UNSAFE ENVIRONMENT? NO . ENDOCRINOLOGY: ARE YOU DIABETIC? NO . OTHER: DO YOU NEED ANY PRESCRIPTIONS? NO . IF YES, PLEASE LIST: YES, PT STATES SHE HAS A DRY INTERMITTENT COUGH FOR THE PAST WEEK. DENIES ANY OTHER SYMPTOMS, DENIES FEVER . ANY NEW PROBLEMS WITH YOUR MEDICATIONS? NO . WHEN DID YOU LAST EAT? ____ . WHEN DID YOU LAST DRINK? ____ . WHAT DID YOU LAST DRINK? ____ . NAME OF PERSON DRIVING YOU HOME? ____ . DO YOU HAVE ANY OTHER QUESTIONS OR CONCERNS NO . VITAL SIGNS WT 190.6 LBS, HT 67", BMI 29.85 INDEX, BP 120/76 MM HG, HR 73 /MIN, RR 18 /MIN, TEMP 97.4 F, OXYGEN SAT % 97%, SAFE IN ENV? (Y/N) Y, NA INITIALS AW 1328, REVIEWED BY: GALE. EXAMINATION GENERAL EXAMINATION: GENERAL APPEARANCE:NO ACUTE DISTRESS, WELL NOURISHED AND HYDRATED. PSYCHAPPROPRIATE MOOD AND AFFECT . LUNGS:CLEAR TO AUSCULTATION BILATERALLY, NO WHEEZES, RHONCHI, RALES. HEART:NO MURMURS, REGULAR RATE AND RHYTHM. BACK: FROM. LINEAR SCARE L2-L5 TENDER TO PALPATION LUMBAR SPINE AND PARASPINAL MUSCLES SLR NEG BILAT REFLEXES 2+. ASSESSMENTS POST LAMINECTOMY SYNDROME - M96.1 (PRIMARY) LUMBAR RADICULOPATHY - M54.16 LUMBAR POST-LAMINECTOMY SYNDROME - M96.1 TREATMENT POST LAMINECTOMY SYNDROME NOTES: UNDERSTANDING RADIOFREQUENCY DENERVATION MATERIAL WAS PRINTED. CLINICAL NOTES: ISTOP REGISTRY REVIEWED AND DEMONSTRATES COMPLLIANCE. (REF #[id number] ) BRINGS IN MEDICATIONS WHICH IS APPROPRIATE FOR WHAT WAS DISPENSED. RECENT URINE TOXICOLOGY REVIEWED. NO UNAUTHORIZED MEDICATIONS. NO ILLICIT SUBSTANCES AND PRESCRIBED MEDICATIONS WERE PRESENT. URINE TOX TODAY. LUMBAR POST-LAMINECTOMY SYNDROME CONTINUE TRAMADOL HCL TABLET, 50 MG, 1 TABLET NEEDED, ORALLY, EVERY 6 HRS PRN PAIN MDD=4, 30 DAYS, 120, REFILLS 1 CLINICAL NOTES: BILATERAL DIAGNOSTIC BLOCK L4-L5, L5-S1 . PREVENTIVE MEDICINE PAIN CLINIC TEACHING: PROCEDURE TEACHING WRITTEN AND VERBAL INFORMATION GIVEN ON RADIOFREQUENCY. PT ALSO GIVEN WRITTEN AND VERBAL PRE-PROCEDURE INSTRUCTIONS. PT VERBALIZES UNDERSTANDING OF ALL EDUCATION AND INSTRUCTIONS. JAMAICA LAYTON 12/24/2018 2:38:03 PM > . PROCEDURE CODES FA211 ESTABILISHED PATIENT [facility] CHARGE DISPOSITION & COMMUNICATION FOLLOW UP POST PROCEDURE (REASON: BILATERAL DIAGNOSTIC BLOCK L4-L5, L5-S1) ELECTRONICALLY SIGNED BY LAKHWINDER ROSE ON 12/25/2018 AT 08:34 AM EDT DISCLAIMER : THIS IS A VISIT SUMMARY EXTRACTED FROM THE [employer] CHART. IT IS NOT A COPY OF THE [employer] PROGRESS NOTE. YONI
== END ==
LOC: M PAIN 13:15
PROVIDERS: ATTEND Nurse Practitioner Family
DX: M96.1 Postlaminectomy syndrome, not elsewhere classified (principal); M54.16 Radiculopathy, lumbar region; I10 Essential (primary) hypertension; E78.00 Pure hypercholesterolemia, unspecified; Z86.59 Personal history of other mental and behavioral disorders; I25.2 Old myocardial infarction; Z98.84 Bariatric surgery status; Z87.891 Personal history of nicotine dependence; Z88.0 Allergy status to penicillin; Z91.09 Other allergy status, other than to drugs and biological substances; Z79.899 Other long term (current) drug therapy

== ENCOUNTER → 2019-02-19 | Outpatient (CLI) | payer OTHER ==
[~2019-02-19] MED LIST changes: +BUPIVACAINE HCL 0.25% 30 ML VIAL As Ordered ONE; +ISOVUE-M 300 61% 15ML VIAL (Q9967) As Ordered ONE; +LIDOCAINE 1% SDV INJ 30 ML VIAL As Ordered ONE
--- NOTE | 2019-02-19 10:50 | REP ---
Partial lumbar spine series: Four views . History: Injection procedure for pain. 39 seconds of fluoroscopy time is reported. Findings: A sequence of four fluoroscopically obtained last image hold procedural spot radiographs of the lumbar spine document needle position and contrast injection associated with injection procedure. Electronically Signed by Del Osullivan MD 02/19/2019 10:42 A
--- NOTE | 2019-03-02 23:27 | ECWPNPC ---
PATIENT NAME: DULCE CHOWDHURY : 1975 GENDER: FEMALE VISIT DATE: 02/19/2019 DISCHARGE DATE: 02/19/19 1054 VISIT LOCKED DATE TIME: PHYSICIAN: RIKKI JUAREZ MD RESOURCE: RIKKI JUAREZ MD REASON FOR APPOINTMENT 1. BILATERAL DIAGNOSTIC BLOCK L4-L5, L5-S1 HISTORY OF PRESENT ILLNESS HISTORY OF PRESENT ILLNESS: PAIN THE PATIENT DESCRIBES THE PAIN... FALL RISK SCREENING: SCREENING :NO FALLS REPORTED IN THE LAST YEAR CURRENT MEDICATIONS TAKING HYDROCHLOROTHIAZIDE 12.5 MG TABLET 1 TAB ORAL DAILY, NOTES: 02-18-19899 TAKING LEVOCETIRIZINE DIHYDROCHLORIDE 5 MG TABLET 1 TABLET IN THE EVENING ORALLY ONCE A DAY, NOTES: 02-18-192099 TAKING GABAPENTIN 800 MG TABLET 1 TABLET ORALLY THREE TIMES DAILY, NOTES: 02-18-192099 TAKING MECLIZINE HCL 25 MG TABLET 1 TABLET NEEDED ORALLY TID, NOTES: NOT LATELY TAKING FAMOTIDINE 20 MG TABLET 1 TABLET ORALLY BEFORE BEDTIME AND PRN, NOTES: NOT LATELEY TAKING VITAMIN D (ERGOCALCIFEROL) 40590 UNIT CAPSULE 1 CAPSULE ORALLY WEEKLY, NOTES: 02-18-19899 TAKING VITAMIN B-12 500 MCG TABLET 2 TABLETS ORALLY ONCE A DAY, NOTES: 02-18-19899 TAKING TIZANIDINE HCL 4 MG TABLET 1 TABLET NEEDED ORALLY THREE TIMES A DAY, NOTES: 02-18-192099 TAKING ATORVASTATIN CALCIUM 20 MG TABLET TAKE ONE TABLET BY MOUTH EVERY DAY , NOTES: 02-18-192099 TAKING PANTOPRAZOLE SODIUM 40 MG TABLET DELAYED RELEASE TAKE ONE TABLET BY MOUTH TWICE A DAY , NOTES: 02-18-192099 TAKING TRAMADOL HCL 50 MG TABLET 1 TABLET NEEDED ORALLY EVERY 6 HRS PRN PAIN MDD=4, NOTES: 02-18-192099 TAKING VOLTAREN 1 % GEL DIRECTED TRANSDERMAL DAILY, NOTES: NOT LATELY TAKING KLONOPIN 0.5 MG TABLET 1 TABLET AT BEDTIME ORALLY ONCE A DAY, NOTES: 02-18-192099 TAKING LISINOPRIL 5 MG TABLET 1 TABLET ORALLY ONCE A DAY, NOTES: 02-18-192099 TAKING XYZAL ALLERGY 24HR 5 MG TABLET 1 TABLET IN THE EVENING ORALLY ONCE A DAY, NOTES: NOT LATELY NOT-TAKING PRAZOSIN HCL 5 MG CAPSULE 1 CAPSULE AT BEDTIME ORALLY ONCE A DAY NOT-TAKING ZIPRASIDONE HCL 60 MG CAPSULE 1 CAPSULE WITH FOOD ORALLY TWICE A DAY NOT-TAKING AMITRIPTYLINE HCL 50 MG TABLET 1 TABLET ORALLY ONCE A DAY NOT-TAKING NORVASC 2.5MG TABLET ORAL ORALLY DAILY MEDICATION LIST REVIEWED AND RECONCILED WITH THE PATIENT PAST MEDICAL HISTORY HTN BORDERLINE DIABETIC HIGH CHOLESTEROL AND TRIGLYSORIDES ANXIETY AND DEPRESSION BIPOLAR DEPRESSION IN HX [place] GASTRIC BYPASS ALLERGIES PCN: RASH - ALLERGY TAPE: RASH - ALLERGY SURGICAL HISTORY D&C 2000 CHOLECYSTECTOMY 2002 HERNIA REPAIR X2 BACK DISCECTOMY LUMBAR REGION 2017 GASTRIC BYPASS 10/06/172017 RIGHT KNEE ARTHROSCOPY 2008 CARDIAC CATHETERIZATION 06/2018 FAMILY HISTORY FATHER: , DIAGNOSED WITH HEART DISEASE, STROKE MOTHER: , CANCER, DIABETES, HEART DISEASE 6 BROTHER(S) , 3 SISTER(S) - HEALTHY. 3DAUGHTER(S) - HEALTHY. HOSPITALIZATION/MAJOR DIAGNOSTIC PROCEDURE SURGERY RELATED IN MENTAL HEALTH 1999 CHEST PAIN 03/07/2018 [place] 06/2018 REVIEW OF SYSTEMS REVIEWED BY: PROVIDER: . CONSTITUTIONAL: ANY CHANGE IN YOUR MEDICAL CONDITION? NO . CHILLS NO . FEVER NO . INFECTION: DO YOU HAVE NEW INFECTIONS? NO . DO YOU HAVE HISTORY OF MRSA? NO . MUSCULOSKELETAL: ANY NEW PATTERNS OF PAIN OR NUMBNESS? NO . GASTROENTEROLOGY: ANY NEW CHANGE IN BOWEL CONTROL? NO . GENITOURINARY: ANY NEW CHANGE IN BLADDER CONTROL? NO . IS THERE A CHANCE YOU COULD BE ? NO . HEMATOLOGY/LYMPH: DO YOU TAKE ANY BLOOD THINNERS? (FOR EXAMPLE- COUMADIN, PLAVIX, AGGRENOX, PLATEL, PRADAXA, OR XARELTO) NO . WHEN WAS YOUR LAST DOSE? DATE: TIME: . NEUROLOGY: HAVE YOU FALLEN IN THE PAST 12 MONTHS? NO . ANY NEW EXTREMITY NUMBNESS OR WEAKNESS? NO . CARDIOLOGY: DO YOU HAVE A PACEMAKER OR DEFIBRILLATOR? NO . RESPIRATORY: HAVE YOU BEEN SICK IN THE PAST WEEK? NO . FEVER NO . FLU LIKE SYMPTOMS? NO . COUGH NO . INTEGUMENTARY: DO YOU HAVE ANY RASHES OR OPEN SORES? NO . ALLERGIC/IMMUNO: ARE YOU ALLERGIC TO IV DYE? NO . ANY NEW ALLERGIES? NO . PSYCHIATRIC: DO YOU HAVE THOUGHTS OF HURTING YOURSELF OR SOMEONE ELSE? NO . ARE YOU ABUSED, NEGLECTED, OR IN AN UNSAFE ENVIRONMENT? NO . ENDOCRINOLOGY: ARE YOU DIABETIC? NO . OTHER: DO YOU NEED ANY PRESCRIPTIONS? NO . IF YES, PLEASE LIST: ____ . ANY NEW PROBLEMS WITH YOUR MEDICATIONS? NO . WHEN DID YOU LAST EAT? ____YESTERDAY . WHEN DID YOU LAST DRINK? ____1130 LAST NIGHT . WHAT DID YOU LAST DRINK? ____TEA . NAME OF PERSON DRIVING YOU HOME? ____GAYLORD JAY . DO YOU HAVE ANY OTHER QUESTIONS OR CONCERNS NO . VITAL SIGNS WT 187 LBS, HT 67", BMI 29.29 INDEX, BP 107/68 MM HG, HR 65 /MIN, RR 18 /MIN, TEMP 98 F,8 F, OXYGEN SAT % 100, SAFE IN ENV? (Y/N) YES, REVIEWED BY: KG. ASSESSMENTS SPONDYLOSIS OF LUMBAR REGION WITHOUT MYELOPATHY OR RADICULOPATHY - M47.816 (PRIMARY) SPONDYLOSIS OF LUMBOSACRAL REGION WITHOUT MYELOPATHY OR RADICULOPATHY - M47.817 PROCEDURES PN LUMBAR FACET BLOCK DIAGNOSTIC PRE PROCEDURE DIAGNOSIS LUMBAR SPONDYLOSIS, LUMBOSACRAL SPONDYLOSIS POST PROCEDURE DIAGNOSIS LUMBAR SPONDYLOSIS, LUMBOSACRAL SPONDYLOSIS PROCEDURE BILATERAL L4-L5 AND BILATERAL L5-S1 FACET BLOCK DIAGNOSTIC NUMBER [address] RIKKI JUAREZ PLANNING DIVISION SUPERINTENDENT NONE ANESTHESIA LOCAL PRE PROCEDURE NOTE THE PATIENT WITH HISTORY OF CHRONIC LOW BACK PAIN. I EVALUATED THE PATIENT AND REVIEWED THE CHART. I WENT OVER THE RISKS, ALTERNATIVES, AND BENEFITS ASSOCIATED WITH THIS PROCEDURE. THE PATIENT WOULD LIKE TO PROCEED AND GAVE CONSENT TO PERFORM THE PROCEDURE. AGREED WITH THE PATIENT WE ARE DOING THIS PROCEDURE TO DETERMINE IF THE PATIENT IS A CANDIDATE FOR A RADIOFREQUENCY ABLATION OF THE FACETS JOINTS. THE PATIENT DENIES UNEXPLAINABLE WEIGHT LOSS, FEVER, CHILLS, OR NEW CHANGES IN URINARY OR BOWEL CONTROL DESCRIPTION OF PROCEDURE THE PATIENT WAS BROUGHT TO THE PROCEDURE ROOM AND PLACED IN THE PRONE POSITION. THE LUMBOSACRAL AREA WAS CLEANED WITH CHLORAPREP SOLUTION AND DRAPED ASEPTICALLY. THE PROCEDURE WAS DONE UNDER STERILE CONDITIONS. I CHECKED LATERALITY AND THE LEVEL WHERE THE PROCEDURE WAS GOING TO BE PERFORMED WITH THE PATIENT AND THE SUPPORTING STAFF AT THE MOMENT OF THE TIME OUT IN THE PROCEDURE ROOM. UNDER FLUOROSCOPIC GUIDANCE, TARGETS WERE SELECTED AT THE INTERSECTION OF THE RIGHT AND LEFT TRANSVERSE PROCESS OF L4, L5 AND ALA OF S1 WITH ITS RESPECTIVE SUPERIOR ARTICULAR PROCESS. LIDOCAINE WAS USED TO NUMB THE SKIN AND THE SUBCUTANEOUS TISSUE BELOW IT. SPINAL NEEDLE, 22-GAUGE WAS ADVANCED UNDER FLUOROSCOPIC GUIDANCE AND FOLLOWING PATIENT FEEDBACK UNTIL THE TARGETS WERE REACHED. POSITION OF THE NEEDLES WAS VERIFIED WITH AP AND LATERAL VIEWS. AFTER PROPER POSITION OF THE NEEDLES WAS ACHIEVED, ISOVUE-M DYE 30% 0.1 ML WAS INJECTED AT EACH SITE SHOWING ADEQUATE SPREAD OF THE DYE. THEN A SOLUTION OF 0.4 ML OF BUPIVACAINE 0.25% WAS INJECTED AT EACH SITE. THERE WAS NO EVIDENCE OF BLOOD, PARESTHESIA OR CEREBROSPINAL FLUID DURING THE PROCEDURE. THE PATIENT WAS SENT TO THE RECOVERY ROOM. THE PATIENT WAS MOVING THE EXTREMITIES AND DOING WELL. THERE WAS NO COMPLICATION DURING THE PROCEDURE. FLUOROSCOPY TIME WAS 39 SECONDS POST PROCEDURE NOTE THE PATIENT WILL DOCUMENT HIS PAIN LEVEL AND RESPONSE TO THIS PROCEDURE EVERY 30 MINUTES. THE PATIENT WILL BE SEEN IN A FOLLOW UP IN THE NEXT FEW WEEKS. FURTHER DETERMINATION FOR HIS CASE WILL BE DONE AT THE NEXT VISIT. INSTRUCTIONS WERE GIVEN, QUESTIONS WERE ANSWERED, AND THE PATIENT EXPRESSED UNDERSTANDING AND AGREED WITH THE PLAN. I, AXEL MORIN, DOCUMENTED THE ABOVE INFORMATION ACTING A SCRIBE FOR DR. JUAREZ. I HAVE REVIEWED THE ABOVE DOCUMENT, WRITTEN BY AXEL CHEATHAMIBRaymundo AND I VERIFY THAT IT IS ACCURATE. DIAGNOSTIC IMAGING [facility] FACET BLOCK (PAIN)[id number] PROCEDURE CODES 6045F RADXPS IN END [id number] PXD 60518 INJ PARAVERT F JNT L/S 1 LEV, MODIFIERS: 50 [id number] INJ PARAVERT F JNT L/S 2 LEV, MODIFIERS: 50 DISPOSITION & COMMUNICATION FOLLOW UP 3 WEEKS ELECTRONICALLY SIGNED BY RIKKI JUAREZ MD, ON 03/02/2019 AT 05:04 PM EDT DISCLAIMER : THIS IS A VISIT SUMMARY EXTRACTED FROM THE [employer] CHART. IT IS NOT A COPY OF THE [employer] PROGRESS NOTE. MTDD
== END ==
LOC: M PAIN 08:30
PROVIDERS: ATTEND Anesthesiology
DX: M47.816 Spondylosis without myelopathy or radiculopathy, lumbar region (principal); M47.817 Spondylosis without myelopathy or radiculopathy, lumbosacral region; I10 Essential (primary) hypertension; R73.03 Prediabetes; E78.2 Mixed hyperlipidemia; F41.9 Anxiety disorder, unspecified; F31.9 Bipolar disorder, unspecified; Z98.84 Bariatric surgery status; I25.2 Old myocardial infarction; Z79.899 Other long term (current) drug therapy; Z88.0 Allergy status to penicillin; Z91.048 Other nonmedicinal substance allergy status
CPT/HCPCS: 64493; 64494; Q9967

== ENCOUNTER → 2019-03-22 | Outpatient (CLI) | payer OTHER ==
[~2019-03-22] MED LIST changes: -BUPIVACAINE HCL 0.25% 30 ML VIAL As Ordered ONE; -CALC12504 PO; +CALC500T61 PO; -ISOVUE-M 300 61% 15ML VIAL (Q9967) As Ordered ONE; -LIDOCAINE 1% SDV INJ 30 ML VIAL As Ordered ONE
--- NOTE | 2019-04-02 02:36 | ECWPNPC ---
PATIENT NAME: DULCE CHOWDHURY : 1975 GENDER: FEMALE VISIT DATE: 03/22/2019 DISCHARGE DATE: 03/22/19 1212 VISIT LOCKED DATE TIME: PHYSICIAN: APOLINAR IRELAND RESOURCE: APOLINAR I[place] REASON FOR APPOINTMENT 1. POST PROC HISTORY OF PRESENT ILLNESS HISTORY OF PRESENT ILLNESS: HERE FOR POST PROCEDURE F/U.HAD BILAT. LFBD #1 ON 02/19/19.REALLY NO SIGNIFICANT REDUCTION IN PAIN.RATING PAIN VAS 10/10.PAIN IS LOCATED IN RIGHT LOW BACK.HAS RESPONDED WELL TO SIJ INJECTIONS IN PAST. PAIN THE PATIENT DESCRIBES THE PAIN... FALL RISK SCREENING: SCREENING :NO FALLS REPORTED IN THE LAST YEAR CURRENT MEDICATIONS TAKING HYDROCHLOROTHIAZIDE 12.5 MG TABLET 1 TAB ORAL DAILY TAKING LEVOCETIRIZINE DIHYDROCHLORIDE 5 MG TABLET 1 TABLET IN THE EVENING ORALLY ONCE A DAY TAKING GABAPENTIN 800 MG TABLET 1 TABLET ORALLY THREE TIMES DAILY TAKING MECLIZINE HCL 25 MG TABLET 1 TABLET NEEDED ORALLY TID, NOTES: NOT LATELY TAKING VITAMIN D (ERGOCALCIFEROL) 38425 UNIT CAPSULE 1 CAPSULE ORALLY WEEKLY TAKING VITAMIN B-12 500 MCG TABLET 2 TABLETS ORALLY ONCE A DAY TAKING VOLTAREN 1 % GEL DIRECTED TRANSDERMAL DAILY, NOTES: NOT LATELY TAKING LISINOPRIL 5 MG TABLET 1 TABLET ORALLY ONCE A DAY TAKING TIZANIDINE HCL 4 MG TABLET 1 TABLET NEEDED ORALLY THREE TIMES A DAY TAKING TRAMADOL HCL 50 MG TABLET 1 TABLET NEEDED ORALLY EVERY 6 HRS PRN PAIN MDD=4, NOTES: 02-18-192099 TAKING KLONOPIN 0.5 MG TABLET 1 TABLET AT BEDTIME ORALLY ONCE A DAY, NOTES: 02-18-192099 TAKING PANTOPRAZOLE SODIUM 40 MG TABLET DELAYED RELEASE TAKE ONE TABLET BY MOUTH TWICE A DAY TAKING ATORVASTATIN CALCIUM 20 MG TABLET TAKE ONE TABLET BY MOUTH EVERY DAY TAKING PRAZOSIN HCL 5 MG CAPSULE 1 CAPSULE AT BEDTIME ORALLY ONCE A DAY TAKING ZIPRASIDONE HCL 60 MG CAPSULE 1 CAPSULE WITH FOOD ORALLY TWICE A DAY TAKING AMITRIPTYLINE HCL 50 MG TABLET 1 TABLET ORALLY ONCE A DAY NOT-TAKING FAMOTIDINE 20 MG TABLET 1 TABLET ORALLY BEFORE BEDTIME AND PRN, NOTES: NOT LATELEY NOT-TAKING XYZAL ALLERGY 24HR 5 MG TABLET 1 TABLET IN THE EVENING ORALLY ONCE A DAY, NOTES: NOT LATELY NOT-TAKING GABAPENTIN 800 MG TABLET TAKE ONE TABLET BY MOUTH THREE TIMES A DAY ORALLY THREE TIMES DAILY NOT-TAKING NORVASC 2.5MG TABLET ORAL ORALLY DAILY MEDICATION LIST REVIEWED AND RECONCILED WITH THE PATIENT PAST MEDICAL HISTORY HTN BORDERLINE DIABETIC HIGH CHOLESTEROL AND TRIGLYSORIDES ANXIETY AND DEPRESSION BIPOLAR DEPRESSION IN HX AL GASTRIC BYPASS ALLERGIES PCN: RASH - ALLERGY TAPE: RASH - ALLERGY SURGICAL HISTORY D&C 2000 CHOLECYSTECTOMY 2001 HERNIA REPAIR X2 BACK DISCECTOMY LUMBAR REGION 2017 GASTRIC BYPASS 10/06/172017 RIGHT KNEE ARTHROSCOPY 2007 CARDIAC CATHETERIZATION 06/2018 FAMILY HISTORY FATHER: , DIAGNOSED WITH HEART DISEASE, STROKE MOTHER: , CANCER, DIABETES, HEART DISEASE 6 BROTHER(S) , 3 SISTER(S) - HEALTHY. 3DAUGHTER(S) - HEALTHY. SOCIAL HISTORY GENERAL: TOBACCO USE ARE YOU A:FORMER SMOKER HOW LONG HAS IT BEEN SINCE YOU LAST SMOKED?1-5 YEARS HIV / HEP-C SCREENING HIV TEST OFFERED TO PATIENT:YES DATE OFFERED:03/21/2018 TEST ACCEPTED:NO HEP-C TEST OFFERED TO PATIENT:YES DATE OFFERED:03/21/2018 REASON:PATIENT DECLINED TEST ACCEPTED:NO REASON:PATIENT DECLINED BROCHURE PROVIDED TO PATIENTNO OTHERS AT HOME: 3 DGTRS AND BOYFRIEND AND CAT. EDUCATION LEVEL OF EDUCATION:HIGH SCHOOL LANGUAGE LANGUAGES SPOKEN:MEXICAN DOMESTIC VIOLENCE DO YOU FEEL SAFE IN YOUR ENVIRONMENT?YES RECREATIONAL DRUG USE DRUG USE?YES HOW OFTEN AND HOW MUCH? MARIJUANA 2X DAY LEARNING BARRIERS / SPECIAL NEEDS BARRIERS TO LEARNING?NO HEARING IMPAIRED?NO VISION IMPAIRED?YES COGNITIVELY IMPAIRED?NO :CORRECTIVE LENSES READINESS TO LEARN?YES LEARNING PREFERENCES?YES :DEMONSTRATION/VERBAL INSTRUCTION LEARNING CAPABILITIES PRESENT?YES EMOTIONAL BARRIERS?NO SPECIAL DEVICES?NO BOAT WORKER NEEDED?NO PAIN CLINIC PFS, CLERGY, PUBLIC HEALTH REFERRALS PFS REFERRAL NEEDED?NO CLERGY REFERRAL NEEDED?NO PUBLIC HEALTH REFERRAL NEEDED?NO WAS THE PROVIDER NOTIFIED OF ANY PERTINENT INFO?YES N/A HAS THE PATIENT BEEN EDUCATED REGARDING HIS/HER PLAN OF CARE?YES HAS THE PATIENT BEEN EDUCATED REGARDING PAIN, THE RISK FOR PAIN, THE IMPORTANCE OF EFFECTIVE PAIN MANAGEMENT, AND THE PAIN ASSESSMENT PROCESS?YES LATEX QUESTIONNAIRE LATEX ALLERGY : HAVE YOU EVER DEVELOPED ANY TYPE OF REACTION AFTER HANDLING LATEX PRODUCTS SUCH RUBBER GLOVES, CONDOMS, DIAPHRAGMS, BALLOONS, SOCKS, OR UNDERWEAR?NO LATEX ALLERGY : HAVE YOU EVER DEVELOPED ANY TYPE OF REACTION DURING OR AFTER DENTAL APPOINTMENT, VAGINAL/RECTAL EXAMINATION, SURGICAL PROCEDURE, OR ANY OTHER EXPOSURE?NO DATE ASKED : 12/24/2018 LATEX RISK : HAVE YOU EVER HAD ANY DIFFICULTY BREATHING OR HIVES AFTER EATING OR HANDLING ANY FRUITS, OR VEGETABLES; SUCH KIWI, BANANAS, STONE FRUITS, OR CHESTNUTSNO LATEX RISK : DO YOU HAVE A PREVIOUS PERSONAL HISTORY OF MORE THAN NINE SURGERIES, SPINA BIFIDA, OR REPEATED CATHERIZATIONS? NO LATEX RISK : ARE YOU FREQUENTLY EXPOSED TO LATEX PRODUCTS IN YOUR OCCUPATION?NO CAFFEINE CAFFEINE USE?NO ADVANCE DIRECTIVE ADVANCE DIRECTIVE DISCUSSED WITH PATIENT:YES PT DOES NOT HAVE ANY ADVANCED DIRECTIVES.PT DECLINES INFO AND ASSISTANCE WITH FORM. 12/24/18 SCIENTOLOGIST [id number] QUAKER MARITAL STATUS: . 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 SEXUAL HX HAD SEX IN THE LAST 12 MONTHS (VAGINAL, ORAL, OR ANAL)?YES WITHMEN ONLY USE PROTECTION?NO LMP:03/2018 HAVE YOU EVER HAD AN STD?NO REVIEWED WITH PATIENT 07/05/18 1317 JSREVIEWED WITH PT 07/31/18 1512 BV08/13/18 1220 REVIEWED WITH PT. AD10/02/18 REVIEWED WITH PT. ADREVIEWED WITH PT 12/24/18 1342 BV. HOSPITALIZATION/MAJOR DIAGNOSTIC PROCEDURE SURGERY RELATED IN PT MENTAL HEALTH 2000 CHEST PAIN 03/07/2018 [place] 06/2018 REVIEW OF SYSTEMS REVIEWED BY: PROVIDER: APOLINAR KEANE . CONSTITUTIONAL: ANY CHANGE IN YOUR MEDICAL CONDITION? NO . CHILLS NO . FEVER NO . INFECTION: DO YOU HAVE NEW INFECTIONS? NO . DO YOU HAVE HISTORY OF MRSA? NO . MUSCULOSKELETAL: ANY NEW PATTERNS OF PAIN OR NUMBNESS? NO . GASTROENTEROLOGY: ANY NEW CHANGE IN BOWEL CONTROL? NO . GENITOURINARY: ANY NEW CHANGE IN BLADDER CONTROL? NO . IS THERE A CHANCE YOU COULD BE ? NO . HEMATOLOGY/LYMPH: DO YOU TAKE ANY BLOOD THINNERS? (FOR EXAMPLE- COUMADIN, PLAVIX, AGGRENOX, PLATEL, PRADAXA, OR XARELTO) NO . WHEN WAS YOUR LAST DOSE? DATE: TIME: . NEUROLOGY: HAVE YOU FALLEN IN THE PAST 12 MONTHS? NO . ANY NEW EXTREMITY NUMBNESS OR WEAKNESS? NO . CARDIOLOGY: DO YOU HAVE A PACEMAKER OR DEFIBRILLATOR? NO . RESPIRATORY: HAVE YOU BEEN SICK IN THE PAST WEEK? NO . FEVER NO . FLU LIKE SYMPTOMS? NO . COUGH NO . INTEGUMENTARY: DO YOU HAVE ANY RASHES OR OPEN SORES? NO . ALLERGIC/IMMUNO: ARE YOU ALLERGIC TO IV DYE? NO . ANY NEW ALLERGIES? NO . PSYCHIATRIC: DO YOU HAVE THOUGHTS OF HURTING YOURSELF OR SOMEONE ELSE? NO . ARE YOU ABUSED, NEGLECTED, OR IN AN UNSAFE ENVIRONMENT? NO . ENDOCRINOLOGY: ARE YOU DIABETIC? NO . OTHER: DO YOU NEED ANY PRESCRIPTIONS? TIZANIDINE AND THE TRAMADOL . IF YES, PLEASE LIST: ____ . ANY NEW PROBLEMS WITH YOUR MEDICATIONS? NO . WHEN DID YOU LAST EAT? ____ . WHEN DID YOU LAST DRINK? ____ . WHAT DID YOU LAST DRINK? ____ . NAME OF PERSON DRIVING YOU HOME? ____ . DO YOU HAVE ANY OTHER QUESTIONS OR CONCERNS NO . VITAL SIGNS WT 183 LBS, HT 67", BMI 28.66 INDEX, BP 97/68 MM HG, HR 63 /MIN, RR 16 /MIN, TEMP 97.2 F, OXYGEN SAT % 100, SAFE IN ENV? (Y/N) Y, REVIEWED BY: KG. EXAMINATION GENERAL EXAMINATION: GENERALALERT,NO DISTRESS . PSYCHAFFECT NORMAL . LUNGS:LUNG SOUNDS ARE CLEAR . HEART:HEART RATE REGULAR . MUSCULOSKELETAL:MST 5/5 BILAT. LOWER EXTREMITIES . LUMBAR SACRAL SPINETENDERNESS RIGHT SIJ .WELL HEALED SURGICAL SCAR L/S SPINE. DIAGNOSTIC TESTS REVIEWEDMRI L/S [id number] . ASSESSMENTS SACROILIITIS - M46.1 (PRIMARY) TREATMENT SACROILIITIS REFILL TIZANIDINE HCL TABLET, 4 MG, 1 TABLET NEEDED, ORALLY, THREE TIMES A DAY, 30 DAY(S), 90 TABLET, REFILLS 2 REFILL TRAMADOL HCL TABLET, 50 MG, 1 TABLET NEEDED, ORALLY, EVERY 6 HRS PRN PAIN MDD=4, 30 DAYS, 120, REFILLS 2, NOTES: 02-18-19 2100 NOTES: RIGHT SIJ, ISTOP REGISTRY REVIEWED AND DEMONSTRATES COMPLLIANCE. BRINGS IN MEDICATIONS WHICH IS APPROPRIATE FOR WHAT WAS DISPENSED. RECENT URINE TOXICOLOGY REVIEWED. NO UNAUTHORIZED MEDICATIONS. NO ILLICIT SUBSTANCES AND PRESCRIBED MEDICATIONS WERE PRESENT. , RISKS AND BENEFITS OF NARCOTIC/OPIOD MEDICATIONS WERE REVIEWED WITH PATIENT - THIS INCLUDES BUT IS NOT LIMITED TO RISK OF DEPENDANCE/DEVELOPMENT OF ADDICTION, MOOD DISTURBANCE AND DEPRESSION, OSTEOPOROSIS, HORMONAL AND LABIDAL CHANGES, RESPIRATORY DEPRESSION AND . PATIENT IS ADVISED NOT TO DRIVE OR DRINK ALCOHOL WHILE ON THESE MEDICATIONS. PROCEDURE CODES FA211 ESTABILISHED PATIENT [facility] CHARGE DISPOSITION & COMMUNICATION FOLLOW UP POST (REASON: RIGHT SIJ) ELECTRONICALLY SIGNED BY LAKHWINDER ORTIZ ON 04/01/2019 AT 04:25 PM EDT DISCLAIMER : THIS IS A VISIT SUMMARY EXTRACTED FROM THE [employer] CHART. IT IS NOT A COPY OF THE [employer] PROGRESS NOTE. YONI
== END ==
LOC: M PAIN 11:00
PROVIDERS: ATTEND Nurse Practitioner Family
DX: M46.1 Sacroiliitis, not elsewhere classified (principal); I10 Essential (primary) hypertension; E78.00 Pure hypercholesterolemia, unspecified; Z86.59 Personal history of other mental and behavioral disorders; I25.2 Old myocardial infarction; Z98.84 Bariatric surgery status; Z95.5 Presence of coronary angioplasty implant and graft; Z87.891 Personal history of nicotine dependence; Z88.0 Allergy status to penicillin; Z91.09 Other allergy status, other than to drugs and biological substances; Z79.899 Other long term (current) drug therapy

== ENCOUNTER → 2019-04-25 | Outpatient (CLI) | payer OTHER ==
[2019-04-25 15:29] LABS: BASO % 0.5 % (0.0-1.0); EOS # 0.1 10^3/uL (0.0-0.50); EOS % 1.7 % (0.0-3.0); HEMATOCRIT 38.9 % (36.0-47.0); HEMOGLOBIN 12.9 g/dl (12.0-15.5); LYMPH # 1.5 10^3/uL (1.5-4.5); LYMPH % 25.3 % (24.0-44.0); MEAN CORPUSCULAR HEMOGLOBIN 31.2 pg (27.0-33.0); MEAN CORPUSCULAR HGB CONC 33.2 g/dl (32.0-36.5); MONO # 0.5 10^3/uL (0.0-0.8); MONO % 8.9 % (0.0-5.0); NEUTROPHILS # 3.8 10^3/uL (1.8-7.7); NEUTROPHILS % 63.3 % (36.0-66.0); PLATELET COUNT, AUTOMATED 179 10^3/uL (150-450); RED BLOOD COUNT 4.14 10^6/uL (4.00-5.40)
[2019-04-25 15:49] LABS: C REACTIVE PROTEIN QUANTITATIV < 0.30 MG/DL (0.00-0.30); RHEUMATOID FACTOR QUANT < 10.0 IU/ML (<15.0); URIC ACID 4.3 MG/DL (2.6-6.0)
[2019-04-25 15:54] LABS: ERYTHROCYTE SEDIMENTATION RATE 7 mm/hr (0-20)
== END ==
LOC: M LAB 14:53
PROVIDERS: ATTEND Physician Assistant
DX: M25.562 Pain in left knee (principal)

== ENCOUNTER → 2019-05-02 | Outpatient (CLI) | payer OTHER ==
[~2019-05-02] MED LIST changes: +BUPIVACAINE HCL 0.25% 30 ML VIAL As Ordered ONE; +ISOVUE-M 200 41% 20ML VIAL (Q9966) As Ordered ONE; +LIDOCAINE 1% SDV INJ 30 ML VIAL As Ordered ONE; +TRIAMCINOLONE ACETONIDE SUSP 40 MG/ML VIAL (J3301) As Ordered ONE; +diazePAM 5 MG TAB As Ordered ONE; +oxyCODONE 5MG TAB As Ordered ONE
--- NOTE | 2019-05-02 13:40 | REP ---
SI JOINT SERIES: THREE VIEWS. HISTORY: Right SI joint block for pain. 13 seconds of fluoroscopy time is reported. FINDINGS: A sequence of three, last image hold fluoroscopically-obtained spot radiographs of the right SI joint document needle position and contrast injection associated with SI joint injection procedure. Electronically Signed by Del Osullivan MD 05/02/2019 04:50 P
--- NOTE | 2019-05-10 00:04 | ECWPNPC ---
PATIENT NAME: DULCE CHOWDHURY : 1975 GENDER: FEMALE VISIT DATE: 05/02/2019 DISCHARGE DATE: 05/02/19 1248 VISIT LOCKED DATE TIME: PHYSICIAN: RIKKI JUAREZ MD RESOURCE: RIKKI JUAREZ MD REASON FOR APPOINTMENT 1. RIGHT SIJ HISTORY OF PRESENT ILLNESS HISTORY OF PRESENT ILLNESS: PAIN THE PATIENT DESCRIBES THE PAIN... FALL RISK SCREENING: SCREENING :NO FALLS REPORTED IN THE LAST YEAR CURRENT MEDICATIONS TAKING HYDROCHLOROTHIAZIDE 12.5 MG TABLET 1 TAB ORAL DAILY TAKING LEVOCETIRIZINE DIHYDROCHLORIDE 5 MG TABLET 1 TABLET IN THE EVENING ORALLY ONCE A DAY TAKING GABAPENTIN 800 MG TABLET 1 TABLET ORALLY THREE TIMES DAILY TAKING MECLIZINE HCL 25 MG TABLET 1 TABLET NEEDED ORALLY TID, NOTES: NOT LATELY TAKING VITAMIN D (ERGOCALCIFEROL) 86433 UNIT CAPSULE 1 CAPSULE ORALLY WEEKLY TAKING VITAMIN B-12 500 MCG TABLET 2 TABLETS ORALLY ONCE A DAY TAKING VOLTAREN 1 % GEL DIRECTED TRANSDERMAL DAILY, NOTES: NOT LATELY TAKING LISINOPRIL 5 MG TABLET 1 TABLET ORALLY ONCE A DAY TAKING PANTOPRAZOLE SODIUM 40 MG TABLET DELAYED RELEASE TAKE ONE TABLET BY MOUTH TWICE A DAY TAKING ATORVASTATIN CALCIUM 20 MG TABLET TAKE ONE TABLET BY MOUTH EVERY DAY TAKING PRAZOSIN HCL 5 MG CAPSULE 1 CAPSULE AT BEDTIME ORALLY ONCE A DAY TAKING ZIPRASIDONE HCL 60 MG CAPSULE 1 CAPSULE WITH FOOD ORALLY TWICE A DAY TAKING AMITRIPTYLINE HCL 50 MG TABLET 1 TABLET ORALLY ONCE A DAY TAKING TIZANIDINE HCL 4 MG TABLET 1 TABLET NEEDED ORALLY THREE TIMES A DAY TAKING TRAMADOL HCL 50 MG TABLET 1 TABLET NEEDED ORALLY EVERY 6 HRS PRN PAIN MDD=4 TAKING KLONOPIN 0.5 MG TABLET 1 TABLET AT BEDTIME ORALLY ONCE A DAY TAKING FAMOTIDINE 20 MG TABLET 1 TABLET ORALLY BEFORE BEDTIME AND PRN NOT-TAKING NORVASC 2.5MG TABLET ORAL ORALLY DAILY DISCONTINUED XYZAL ALLERGY 24HR 5 MG TABLET 1 TABLET IN THE EVENING ORALLY ONCE A DAY, NOTES: DUPLICATE DISCONTINUED GABAPENTIN 800 MG TABLET TAKE ONE TABLET BY MOUTH THREE TIMES A DAY ORALLY THREE TIMES DAILY, NOTES: DUPLICATE MEDICATION LIST REVIEWED AND RECONCILED WITH THE PATIENT PAST MEDICAL HISTORY HTN BORDERLINE DIABETIC HIGH CHOLESTEROL AND TRIGLYSORIDES ANXIETY AND DEPRESSION BIPOLAR DEPRESSION IN HX [place] GASTRIC BYPASS LOW BACK PAIN ALLERGIES PCN: RASH - ALLERGY TAPE: RASH - ALLERGY SURGICAL HISTORY D&C 2000 CHOLECYSTECTOMY 2002 HERNIA REPAIR X2 BACK DISCECTOMY LUMBAR REGION 2017 GASTRIC BYPASS 10/06/172017 RIGHT KNEE ARTHROSCOPY 2008 CARDIAC CATHETERIZATION 06/2018 FAMILY HISTORY FATHER: , DIAGNOSED WITH HEART DISEASE, STROKE MOTHER: , HEART DISEASE, CANCER, DIABETES 6 BROTHER(S) , 3 SISTER(S) - HEALTHY. 3DAUGHTER(S) - HEALTHY. SOCIAL HISTORY GENERAL: TOBACCO USE ARE YOU A:FORMER SMOKER HOW LONG HAS IT BEEN SINCE YOU LAST SMOKED?1-5 YEARS HIV / HEP-C SCREENING HIV TEST OFFERED TO PATIENT:YES DATE OFFERED:03/21/2018 TEST ACCEPTED:NO HEP-C TEST OFFERED TO PATIENT:YES DATE OFFERED:03/21/2018 REASON:PATIENT DECLINED TEST ACCEPTED:NO REASON:PATIENT DECLINED BROCHURE PROVIDED TO PATIENTNO OTHERS AT HOME: 3 DGTRS AND BOYFRIEND AND CAT. EDUCATION LEVEL OF EDUCATION:HIGH SCHOOL LANGUAGE LANGUAGES SPOKEN:SUDANESE DOMESTIC VIOLENCE DO YOU FEEL SAFE IN YOUR ENVIRONMENT?YES RECREATIONAL DRUG USE DRUG USE?YES HOW OFTEN AND HOW MUCH? 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NO LATEX ALLERGY : HAVE YOU EVER DEVELOPED ANY TYPE OF REACTION DURING OR AFTER DENTAL APPOINTMENT, VAGINAL/RECTAL EXAMINATION, SURGICAL PROCEDURE, OR ANY OTHER EXPOSURE?NO DATE ASKED : 12/24/2018 LATEX RISK : HAVE YOU EVER HAD ANY DIFFICULTY BREATHING OR HIVES AFTER EATING OR HANDLING ANY FRUITS, OR VEGETABLES; SUCH KIWI, BANANAS, STONE FRUITS, OR CHESTNUTSNO LATEX RISK : DO YOU HAVE A PREVIOUS PERSONAL HISTORY OF MORE THAN NINE SURGERIES, SPINA BIFIDA, OR REPEATED CATHERIZATIONS? NO LATEX RISK : ARE YOU FREQUENTLY EXPOSED TO LATEX PRODUCTS IN YOUR OCCUPATION?NO CAFFEINE CAFFEINE USE?NO ADVANCE DIRECTIVE ADVANCE DIRECTIVE DISCUSSED WITH PATIENT:YES 05/02/19 PT DOES NOT HAVE ANY ADVANCED DIRECTIVES AND SHE DECLINES INFORMATION ON HCP AT THIS TIME. AD ORTHODOX [id number] MUSLIM MARITAL STATUS: . 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 SEXUAL HX HAD SEX IN THE LAST 12 MONTHS (VAGINAL, ORAL, OR ANAL)?YES WITHMEN ONLY USE PROTECTION?NO LMP:03/2018 HAVE YOU EVER HAD AN STD?NO REVIEWED WITH PATIENT 07/05/18 1317 JSREVIEWED WITH PT 07/31/18 1512 BV08/13/18 1220 REVIEWED WITH PT. AD10/02/18 REVIEWED WITH PT. ADREVIEWED WITH PT 12/24/18 1342 BV. HOSPITALIZATION/MAJOR DIAGNOSTIC PROCEDURE SURGERY RELATED IN PT MENTAL HEALTH 2000 CHEST PAIN 03/07/2018 [place] 06/2018 REVIEW OF SYSTEMS REVIEWED BY: PROVIDER: . CONSTITUTIONAL: ANY CHANGE IN YOUR MEDICAL CONDITION? NO . CHILLS NO . FEVER NO . INFECTION: DO YOU HAVE NEW INFECTIONS? NO . DO YOU HAVE HISTORY OF MRSA? NO . MUSCULOSKELETAL: ANY NEW PATTERNS OF PAIN OR NUMBNESS? NO . GASTROENTEROLOGY: ANY NEW CHANGE IN BOWEL CONTROL? NO . GENITOURINARY: ANY NEW CHANGE IN BLADDER CONTROL? NO . IS THERE A CHANCE YOU COULD BE ? NO . HEMATOLOGY/LYMPH: DO YOU TAKE ANY BLOOD THINNERS? (FOR EXAMPLE- COUMADIN, PLAVIX, AGGRENOX, PLATEL, PRADAXA, OR XARELTO) NO . WHEN WAS YOUR LAST DOSE? DATE: TIME: . NEUROLOGY: HAVE YOU FALLEN IN THE PAST 12 MONTHS? YES, QUITE A WHILE AGO, A COUPLE OF TIMES. NO INJURIES . ANY NEW EXTREMITY NUMBNESS OR WEAKNESS? NO . CARDIOLOGY: DO YOU HAVE A PACEMAKER OR DEFIBRILLATOR? NO . RESPIRATORY: HAVE YOU BEEN SICK IN THE PAST WEEK? NO . FEVER NO . FLU LIKE SYMPTOMS? NO . COUGH NO . INTEGUMENTARY: DO YOU HAVE ANY RASHES OR OPEN SORES? NO . ALLERGIC/IMMUNO: ARE YOU ALLERGIC TO IV DYE? NO . ANY NEW ALLERGIES? NO . PSYCHIATRIC: DO YOU HAVE THOUGHTS OF HURTING YOURSELF OR SOMEONE ELSE? NO . ARE YOU ABUSED, NEGLECTED, OR IN AN UNSAFE ENVIRONMENT? NO . ENDOCRINOLOGY: ARE YOU DIABETIC? NO . OTHER: DO YOU NEED ANY PRESCRIPTIONS? NO . IF YES, PLEASE LIST: ____ . ANY NEW PROBLEMS WITH YOUR MEDICATIONS? NO . WHEN DID YOU LAST EAT? 05/01 2000 . WHEN DID YOU LAST DRINK? 05/01 2300 . WHAT DID YOU LAST DRINK? TEA . NAME OF PERSON DRIVING YOU HOME? JASON CHOWDHURY . DO YOU HAVE ANY OTHER QUESTIONS OR CONCERNS NO . VITAL SIGNS WT 178.8 LBS, HT 67", BMI 28.00 INDEX, BP 111/72 MM HG, HR 90 /MIN, RR 18 /MIN, TEMP 97.7 F, OXYGEN SAT % 97%, SAFE IN ENV? (Y/N) Y, NA INITIALS AW 1045, REVIEWED BY: ASSESSMENTS SACROILIITIS - M46.1 (PRIMARY) TREATMENT SACROILIITIS [facility] FLUORO GUIDANCE (PAIN)[id number] PROCEDURES PN SI PRE PROCEDURE DIAGNOSIS SACROILIITIS, SACROILIAC JOINT DYSFUNCTION POST PROCEDURE DIAGNOSIS SACROILIITIS, SACROILIAC JOINT DYSFUNCTION PROCEDURE RIGHT SACROILIAC JOINT BLOCK SURGEON DR. RIKKI JUAREZ BOTTLED BEVERAGE INSPECTOR NONE ANESTHESIA LOCAL PRE PROCEDURE NOTE PATIENT WITH HISTORY OF CHRONIC LOW BACK PAIN. I EVALUATED THE PATIENT AND REVIEWED THE CHART. I WENT OVER THE RISKS, ALTERNATIVES, AND BENEFITS ASSOCIATED WITH THIS PROCEDURE. THE PATIENT WOULD LIKE TO PROCEED AND GAVE CONSENT TO PERFORM THE PROCEDURE. THE PATIENT DENIES UNEXPLAINABLE WEIGHT LOSS, FEVER, CHILLS, OR NEW CHANGES IN URINARY OR BOWEL CONTROL DESCRIPTION OF PROCEDURE THE PATIENT WAS BROUGHT TO THE PROCEDURE ROOM AND PLACED IN THE PRONE POSITION. THE LUMBOSACRAL AREA WAS CLEANED WITH CHLORAPREP SOLUTION AND DRAPED ASEPTICALLY. THE PROCEDURE WAS DONE UNDER STERILE CONDITIONS. I CHECKED LATERALITY AND THE LEVEL WHERE THE PROCEDURE WAS GOING TO BE PERFORMED WITH THE PATIENT AND THE SUPPORTING STAFF AT THE MOMENT OF THE TIME OUT IN THE PROCEDURE ROOM. UNDER FLUOROSCOPIC GUIDANCE, TARGET POINT WAS SELECTED AT THE LOWER BORDER OF THE RIGHT SACROILIAC JOINT. TARGET POINT WAS SELECTED AFTER MEDIAL ROTATION AND TILT OF THE MAGNIFIER OF THE C-ARM. LIDOCAINE WAS USED TO NUMB THE SKIN AND SUBCUTANEOUS TISSUE BELOW IT. A SPINAL NEEDLE, 22-GAUGE, WAS ADVANCED UNDER FLUOROSCOPIC GUIDANCE AND FOLLOWING PATIENT FEEDBACK UNTIL THE TARGET AREA WAS TOUCHED. THE POSITION OF THE NEEDLE WAS VERIFIED WITH AP AND LATERAL VIEWS. AFTER PROPER POSITION OF THE NEEDLE WAS ACHIEVED, ISOVUE M-200 CONTRAST WAS INJECTED SHOWING SPREAD OF THE DYE. THEN, A SOLUTION OF 30 MG OF KENALOG WAS INJECTED IN RIGHT JOINT WITH 3 ML OF BUPIVACAINE 0.125%. THERE WAS NO EVIDENCE OF BLOOD, PARESTHESIA OR CEREBROSPINAL FLUID DURING THE PROCEDURE. THE PATIENT WAS SENT TO THE RECOVERY ROOM. THE PATIENT WAS MOVING THE EXTREMITIES AND DOING WELL. THERE WAS NO COMPLICATION DURING THE PROCEDURE. FLUOROSCOPY TIME WAS 13 SECONDS POST PROCEDURE NOTE THE PATIENT WILL BE SEEN IN A FOLLOW UP IN THE NEXT FEW WEEKS. INSTRUCTIONS WERE GIVEN, QUESTIONS WERE ANSWERED, AND THE PATIENT EXPRESSED UNDERSTANDING AND AGREED WITH THE PLAN. I, ÁNGEL MCCARTY, DOCUMENTED THE ABOVE INFORMATION ACTING A SCRIBE FOR DR. JUAREZ. I HAVE REVIEWED THE ABOVE DOCUMENT, WRITTEN BY ÁNGEL FREGOSO AND I VERIFY THAT IT IS ACCURATE. PROCEDURE CODES 28619 INJECT SACROILIAC JOINT, MODIFIERS: RT 6045F RADXPS IN END [id number] PXD DISPOSITION & COMMUNICATION FOLLOW UP 3 WEEKS ELECTRONICALLY SIGNED BY RIKKI JUAREZ MD, MD ON 05/09/2019 AT 11:02 AM EDT DISCLAIMER : THIS IS A VISIT SUMMARY EXTRACTED FROM THE [employer] CHART. IT IS NOT A COPY OF THE [employer] PROGRESS NOTE. MTDD
== END ==
LOC: M PAIN 10:45
PROVIDERS: ATTEND Anesthesiology
DX: M46.1 Sacroiliitis, not elsewhere classified (principal); Z79.899 Other long term (current) drug therapy; Z98.84 Bariatric surgery status; Z87.891 Personal history of nicotine dependence; Z88.0 Allergy status to penicillin; Z91.048 Other nonmedicinal substance allergy status
CPT/HCPCS: 27096; J3301; Q9966

== ENCOUNTER → 2019-05-16 | Outpatient (REF) | payer OTHER ==
[~2019-05-16] MED LIST changes: -BUPIVACAINE HCL 0.25% 30 ML VIAL As Ordered ONE; -BUPR300T34 PO; +BUPR300T92 PO; +HYDR25TAB PO; -ISOVUE-M 200 41% 20ML VIAL (Q9966) As Ordered ONE; -LIDOCAINE 1% SDV INJ 30 ML VIAL As Ordered ONE; +LISI-542 PO; -METH4TAB28 PO; +METH4TAB8 PO; +PERC5TAB12 PO; -TRIAMCINOLONE ACETONIDE SUSP 40 MG/ML VIAL (J3301) As Ordered ONE; +XARE10TA PO; -diazePAM 5 MG TAB As Ordered ONE; -oxyCODONE 5MG TAB As Ordered ONE
[2019-05-21 14:07] LABS: HPV HYBRID CAPTURE II Negative (Negative)
== END ==
LOC: M LAB REF 08:26
PROVIDERS: ATTEND Obstetrics & Gynecology
DX: Z12.4 Encounter for screening for malignant neoplasm of cervix (principal)

== ENCOUNTER → 2019-05-16 | Outpatient (CLI) | payer OTHER ==
[~2019-05-16] MED LIST changes: +BUPR300T34 PO; -BUPR300T92 PO; -HYDR25TAB PO; -LISI-542 PO; +METH4TAB28 PO; -METH4TAB8 PO; -PERC5TAB12 PO; -XARE10TA PO
--- NOTE | 2019-05-31 02:17 | ECWPNPC ---
PATIENT NAME: DULCE CHOWDHURY : 1975 GENDER: FEMALE VISIT DATE: 05/16/2019 DISCHARGE DATE: 05/16/19 1416 VISIT LOCKED DATE TIME: PHYSICIAN: APOLINAR IRELAND RESOURCE: APOLINAR [place] REASON FOR APPOINTMENT 1. POST SIJ HISTORY OF PRESENT ILLNESS HISTORY OF PRESENT ILLNESS: HERE FOR F/U OF RIGHT LBP .HAD RIGHT SIJ ON 05/02/19.REPORTING SOME IMPROVEMENT IN PAIN IN THAT AREA SINCE INJECTION THAT CONTINUES TODAY.CHIEF AREA OF PAIN IS LOWER THORACIC.THIS IS A NEW AREA OF PAIN THAT BEGAN 2-3 DAYS AGO.HX OF BACK SURGERY IN 2014.NO RECENT INJURY.REPORTING NORMAL BOWEL AND BLADDER FUNCTION.RATING NEW PAIN 8/10 VAS.HX OF GASTRIC BYPASS SURGERY. PAIN THE PATIENT DESCRIBES THE PAIN... FALL RISK SCREENING: SCREENING :NO FALLS REPORTED IN THE LAST YEAR CURRENT MEDICATIONS TAKING HYDROCHLOROTHIAZIDE 12.5 MG TABLET 1 TAB ORAL DAILY TAKING LEVOCETIRIZINE DIHYDROCHLORIDE 5 MG TABLET 1 TABLET IN THE EVENING ORALLY ONCE A DAY TAKING GABAPENTIN 800 MG TABLET 1 TABLET ORALLY THREE TIMES DAILY TAKING MECLIZINE HCL 25 MG TABLET 1 TABLET NEEDED ORALLY TID, NOTES: NOT LATELY TAKING VITAMIN D (ERGOCALCIFEROL) 27985 UNIT CAPSULE 1 CAPSULE ORALLY WEEKLY TAKING VITAMIN B-12 500 MCG TABLET 2 TABLETS ORALLY ONCE A DAY TAKING VOLTAREN 1 % GEL DIRECTED TRANSDERMAL DAILY, NOTES: NOT LATELY TAKING LISINOPRIL 5 MG TABLET 1 TABLET ORALLY ONCE A DAY TAKING PANTOPRAZOLE SODIUM 40 MG TABLET DELAYED RELEASE TAKE ONE TABLET BY MOUTH TWICE A DAY TAKING ATORVASTATIN CALCIUM 20 MG TABLET TAKE ONE TABLET BY MOUTH EVERY DAY TAKING PRAZOSIN HCL 5 MG CAPSULE 1 CAPSULE AT BEDTIME ORALLY ONCE A DAY TAKING ZIPRASIDONE HCL 60 MG CAPSULE 1 CAPSULE WITH FOOD ORALLY TWICE A DAY TAKING AMITRIPTYLINE HCL 50 MG TABLET 1 TABLET ORALLY ONCE A DAY TAKING TIZANIDINE HCL 4 MG TABLET 1 TABLET NEEDED ORALLY THREE TIMES A DAY TAKING TRAMADOL HCL 50 MG TABLET 1 TABLET NEEDED ORALLY EVERY 6 HRS PRN PAIN MDD=4 TAKING FAMOTIDINE 20 MG TABLET 1 TABLET ORALLY BEFORE BEDTIME AND PRN TAKING KLONOPIN 0.5 MG TABLET 1 TABLET AT BEDTIME ORALLY ONCE A DAY NOT-TAKING NORVASC 2.5MG TABLET ORAL ORALLY DAILY MEDICATION LIST REVIEWED AND RECONCILED WITH THE PATIENT PAST MEDICAL HISTORY HTN BORDERLINE DIABETIC HIGH CHOLESTEROL AND TRIGLYSORIDES ANXIETY AND DEPRESSION BIPOLAR DEPRESSION IN HX MD GASTRIC BYPASS LOW BACK PAIN ALLERGIES PCN: RASH - ALLERGY TAPE: RASH - ALLERGY SURGICAL HISTORY D&C 2000 CHOLECYSTECTOMY 2001 HERNIA REPAIR X2 BACK DISCECTOMY LUMBAR REGION 2017 GASTRIC BYPASS 10/06/172017 RIGHT KNEE ARTHROSCOPY 2008 CARDIAC CATHETERIZATION 06/2018 FAMILY HISTORY FATHER: , DIAGNOSED WITH UNSPECIFIED HEART DISEASE, UNSPECIFIED CEREBRAL ARTERY OCCLUSION WITH CEREBRAL INFARCTION MOTHER: , DIABETES, UNSPECIFIED HEART DISEASE, OTHER MALIGNANT NEOPLASM OF UNSPECIFIED SITE 6 BROTHER(S) , 3 SISTER(S) - HEALTHY. 3DAUGHTER(S) - HEALTHY. SOCIAL HISTORY GENERAL: TOBACCO USE ARE YOU A:FORMER SMOKER HOW LONG HAS IT BEEN SINCE YOU LAST SMOKED?1-5 YEARS HIV / HEP-C SCREENING HIV TEST OFFERED TO PATIENT:YES DATE OFFERED:03/21/2018 TEST ACCEPTED:NO HEP-C TEST OFFERED TO PATIENT:YES DATE OFFERED:03/21/2018 REASON:PATIENT DECLINED TEST ACCEPTED:NO REASON:PATIENT DECLINED BROCHURE PROVIDED TO PATIENTNO OTHERS AT HOME: 3 DGTRS AND BOYFRIEND AND CAT. EDUCATION LEVEL OF EDUCATION:HIGH SCHOOL LANGUAGE LANGUAGES SPOKEN:JAPANESE DOMESTIC VIOLENCE DO YOU FEEL SAFE IN YOUR ENVIRONMENT?YES RECREATIONAL DRUG USE DRUG USE?YES HOW OFTEN AND HOW MUCH? MARIJUANA 2X DAY LEARNING BARRIERS / SPECIAL NEEDS BARRIERS TO LEARNING?NO HEARING IMPAIRED?NO VISION IMPAIRED?YES COGNITIVELY IMPAIRED?NO :CORRECTIVE LENSES READINESS TO LEARN?YES LEARNING PREFERENCES?YES :DEMONSTRATION/VERBAL INSTRUCTION LEARNING CAPABILITIES PRESENT?YES EMOTIONAL BARRIERS?NO SPECIAL DEVICES?YES : BRACE RIGHT KNEE INSURANCE PROCESSOR NEEDED?NO PAIN CLINIC PFS, CLERGY, PUBLIC HEALTH REFERRALS PFS REFERRAL NEEDED?NO CLERGY REFERRAL NEEDED?NO PUBLIC HEALTH REFERRAL NEEDED?NO WAS THE PROVIDER NOTIFIED OF ANY PERTINENT INFO?YES N/A HAS THE PATIENT BEEN EDUCATED REGARDING HIS/HER PLAN OF CARE?YES HAS THE PATIENT BEEN EDUCATED REGARDING PAIN, THE RISK FOR PAIN, THE IMPORTANCE OF EFFECTIVE PAIN MANAGEMENT, AND THE PAIN ASSESSMENT PROCESS?YES LATEX QUESTIONNAIRE LATEX ALLERGY : HAVE YOU EVER DEVELOPED ANY TYPE OF REACTION AFTER HANDLING LATEX PRODUCTS SUCH RUBBER GLOVES, CONDOMS, DIAPHRAGMS, BALLOONS, SOCKS, OR UNDERWEAR?NO LATEX ALLERGY : HAVE YOU EVER DEVELOPED ANY TYPE OF REACTION DURING OR AFTER DENTAL APPOINTMENT, VAGINAL/RECTAL EXAMINATION, SURGICAL PROCEDURE, OR ANY OTHER EXPOSURE?NO DATE ASKED : 12/24/2018 LATEX RISK : HAVE YOU EVER HAD ANY DIFFICULTY BREATHING OR HIVES AFTER EATING OR HANDLING ANY FRUITS, OR VEGETABLES; SUCH KIWI, BANANAS, STONE FRUITS, OR CHESTNUTSNO LATEX RISK : DO YOU HAVE A PREVIOUS PERSONAL HISTORY OF MORE THAN NINE SURGERIES, SPINA BIFIDA, OR REPEATED CATHERIZATIONS? NO LATEX RISK : ARE YOU FREQUENTLY EXPOSED TO LATEX PRODUCTS IN YOUR OCCUPATION?NO CAFFEINE CAFFEINE USE?NO ADVANCE DIRECTIVE ADVANCE DIRECTIVE DISCUSSED WITH PATIENT:YES PT DOES NOT HAVE ANY ADVANCED DIRECTIVES AND SHE DECLINES INFORMATION ON HCP AT THIS TIME. YARSANISM [id number] DRUZE MARITAL STATUS: . 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 SEXUAL HX HAD SEX IN THE LAST 12 MONTHS (VAGINAL, ORAL, OR ANAL)?YES WITHMEN ONLY USE PROTECTION?NO LMP:03/2018 HAVE YOU EVER HAD AN STD?NO REVIEWED WITH PATIENT 07/05/18 1317 JSREVIEWED WITH PT 07/31/18 1512 BV08/13/18 1220 REVIEWED WITH PT. AD10/02/18 REVIEWED WITH PT. ADREVIEWED WITH PT 12/24/18 1342 BV. HOSPITALIZATION/MAJOR DIAGNOSTIC PROCEDURE SURGERY RELATED IN PT MENTAL HEALTH 2000 CHEST PAIN 03/07/2018 MD 06/2018 REVIEW OF SYSTEMS REVIEWED BY: PROVIDER: APOLINAR KEANE . CONSTITUTIONAL: ANY CHANGE IN YOUR MEDICAL CONDITION? NO . CHILLS NO . FEVER NO . INFECTION: DO YOU HAVE NEW INFECTIONS? NO . DO YOU HAVE HISTORY OF MRSA? NO . MUSCULOSKELETAL: ANY NEW PATTERNS OF PAIN OR NUMBNESS? YES, WHILE DRIVING LAST WEEK SHE EXPERIENCED A SEVERE MUSCLE SPASM IN MIDDLE OF BACK NEAR LEFT SPINE ARE, NO HX OF THIS PAIN BEFORE, PAIN CONTINUES TODAY . GASTROENTEROLOGY: ANY NEW CHANGE IN BOWEL CONTROL? NO . GENITOURINARY: ANY NEW CHANGE IN BLADDER CONTROL? NO . IS THERE A CHANCE YOU COULD BE ? NO . HEMATOLOGY/LYMPH: DO YOU TAKE ANY BLOOD THINNERS? (FOR EXAMPLE- COUMADIN, PLAVIX, AGGRENOX, PLATEL, PRADAXA, OR XARELTO) NO . WHEN WAS YOUR LAST DOSE? DATE: TIME: . NEUROLOGY: HAVE YOU FALLEN IN THE PAST 12 MONTHS? NO . ANY NEW EXTREMITY NUMBNESS OR WEAKNESS? NO . CARDIOLOGY: DO YOU HAVE A PACEMAKER OR DEFIBRILLATOR? NO . RESPIRATORY: HAVE YOU BEEN SICK IN THE PAST WEEK? NO . FEVER NO . FLU LIKE SYMPTOMS? NO . COUGH NO . INTEGUMENTARY: DO YOU HAVE ANY RASHES OR OPEN SORES? NO . ALLERGIC/IMMUNO: ARE YOU ALLERGIC TO IV DYE? NO . ANY NEW ALLERGIES? NO . PSYCHIATRIC: DO YOU HAVE THOUGHTS OF HURTING YOURSELF OR SOMEONE ELSE? NO . ARE YOU ABUSED, NEGLECTED, OR IN AN UNSAFE ENVIRONMENT? NO . ENDOCRINOLOGY: ARE YOU DIABETIC? NO . OTHER: DO YOU NEED ANY PRESCRIPTIONS? NO . IF YES, PLEASE LIST: ____ . ANY NEW PROBLEMS WITH YOUR MEDICATIONS? NO . WHEN DID YOU LAST EAT? ____ . WHEN DID YOU LAST DRINK? ____ . WHAT DID YOU LAST DRINK? ____ . NAME OF PERSON DRIVING YOU HOME? ____ . DO YOU HAVE ANY OTHER QUESTIONS OR CONCERNS YES, STARTED WITH NEW BACK PAIN A BIT HIGHER THAN BEFORE . VITAL SIGNS WT 173.2 LBS, HT 67", BMI 27.12 INDEX, BP 107/72 MM HG, HR 75 /MIN, RR 18 /MIN, TEMP 96.9 F, OXYGEN SAT % 99%, NA INITIALS AW 1335, REVIEWED BY: EM. EXAMINATION GENERAL EXAMINATION: GENERALALERT,NO DISTRESS . PSYCHAFFECT NORMAL . LUNGS:LUNG SOUNDS ARE CLEAR . HEART:HEART RATE REGULAR . MUSCULOSKELETAL:MST 5/5 BILAT. LOWER EXTREMITIES . LUMBAR SACRAL SPINETENDERNESS RIGHT SIJ .WELL HEALED SURGICAL SCAR L/S SPINE. DIAGNOSTIC TESTS REVIEWEDMRI L/S [id number] . ASSESSMENTS CERVICAL DISC DISORDER AT C5-C6 LEVEL WITH RADICULOPATHY - M50.122 (PRIMARY) LUMBAR POST-LAMINECTOMY SYNDROME - M96.1 TREATMENT CERVICAL DISC DISORDER AT C5-C6 LEVEL WITH RADICULOPATHY CONTINUE GABAPENTIN TABLET, 800 MG, 1 TABLET, ORALLY, THREE TIMES DAILY CONTINUE VOLTAREN GEL, 1 %, DIRECTED, TRANSDERMAL, DAILY, NOTES: NOT LATELY CONTINUE TIZANIDINE HCL TABLET, 4 MG, 1 TABLET NEEDED, ORALLY, THREE TIMES A DAY CONTINUE TRAMADOL HCL TABLET, 50 MG, 1 TABLET NEEDED, ORALLY, EVERY 6 HRS PRN PAIN MDD=4 NOTES: HOME STRTCHING EXCERSISES 2X DAY REPS OF 5. PROCEDURE CODES FA211 ESTABILISHED PATIENT RESTORATION FACILITY CHARGE DISPOSITION & COMMUNICATION FOLLOW UP 2 MONTHS W JIMBO (REASON: LBP/MED MGMNT) ELECTRONICALLY SIGNED BY LAKHWINDER ORTIZ ON 05/30/2019 AT 08:53 AM EDT DISCLAIMER : THIS IS A VISIT SUMMARY EXTRACTED FROM THE [employer] CHART. IT IS NOT A COPY OF THE [employer] PROGRESS NOTE. YONI
== END ==
LOC: M PAIN 13:15
PROVIDERS: ATTEND Nurse Practitioner Family
DX: M50.122 Cervical disc disorder at C5-C6 level with radiculopathy (principal); M96.1 Postlaminectomy syndrome, not elsewhere classified; I10 Essential (primary) hypertension; E78.00 Pure hypercholesterolemia, unspecified; Z86.59 Personal history of other mental and behavioral disorders; I25.2 Old myocardial infarction; Z98.84 Bariatric surgery status; Z87.891 Personal history of nicotine dependence; Z88.0 Allergy status to penicillin; Z91.09 Other allergy status, other than to drugs and biological substances; Z79.899 Other long term (current) drug therapy

== ENCOUNTER → 2019-05-28 | Outpatient (CLI) | payer OTHER ==
[2019-05-28 09:10] LABS: HEMATOCRIT 37.6 % (36.0-47.0); HEMOGLOBIN 12.6 g/dl (12.0-15.5); MEAN CORPUSCULAR HEMOGLOBIN 31.1 pg (27.0-33.0); MEAN CORPUSCULAR HGB CONC 33.5 g/dl (32.0-36.5); MEAN CORPUSCULAR VOLUME 92.8 fl (80.0-96.0); PLATELET COUNT, AUTOMATED 142 10^3/uL (150-450); RED BLOOD COUNT 4.05 10^6/uL (4.00-5.40); WHITE BLOOD COUNT 4.1 10^3/uL (4.0-10.0)
--- NOTE | 2019-05-28 09:12 | ECGEPIP ---
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
[2019-05-28 09:19] LABS: INR 1.12; PROTHROMBIN TIME 14.1 SECONDS (11.8-14.0)
[2019-05-28 09:29] LABS: ERYTHROCYTE SEDIMENTATION RATE 5 mm/hr (0-20)
[2019-05-28 09:40] LABS: ALBUMIN 3.4 GM/DL (3.2-5.2); ALT/SGPT 36 U/L (12-78); BILIRUBIN,TOTAL 0.5 MG/DL (0.2-1.0); BLOOD UREA NITROGEN 9 MG/DL (7-18); CALCIUM LEVEL 9.1 MG/DL (8.5-10.1); CARBON DIOXIDE LEVEL 31 MEQ/L (21-32); CHLORIDE LEVEL 105 MEQ/L (98-107); CREATININE FOR GFR 0.72 MG/DL (0.55-1.30); GLOMERULAR FILTRATION RATE > 60.0 (>58); GLUCOSE, FASTING 81 MG/DL (70-100); POTASSIUM SERUM 3.1 MEQ/L (3.5-5.1); SODIUM LEVEL 142 MEQ/L (136-145); TOTAL PROTEIN 5.9 GM/DL (6.4-8.2)
--- NOTE | 2019-05-29 03:23 | REP ---
Clinical: Preoperative assessment . Comparison: 07/04/2018 . Technique: PA and lateral. Findings: The mediastinum and cardiac silhouette are normal. The lung cooley are clear and without acute consolidation, effusion, or pneumothorax. The skeletal structures are intact and normal. Impression: 1. No acute cardiopulmonary process. Electronically Signed by Jessee Seymour MD 05/29/2019 03:14 A
== END ==
LOC: M LAB 08:05
PROVIDERS: ATTEND Orthopaedic Surgery
DX: Z01.818 Encounter for other preprocedural examination (principal); M17.11 Unilateral primary osteoarthritis, right knee

== ENCOUNTER → 2019-06-03 | Outpatient (CLI) | payer OTHER | LOC: M LAB 11:32 | PROVIDERS: ATTEND Student in an Organized Health Care Education/Training Program | DX: E87.6 Hypokalemia (principal) ==

== ENCOUNTER → 2019-06-07 | Outpatient (CLI) | payer OTHER ==
[~2019-06-07] MED LIST changes: +HYDR25TAB PO; +LISI-542 PO
--- NOTE | 2019-06-07 13:09 | REP ---
BILATERAL SCREENING DIGITAL MAMMOGRAM WITH 3D TOMOSYNTHESIS: There are no palpable abnormalities or other breast complaints. The the patient states she has not had a clinical breast examination in over a year. The the patient states she performs self-breast examinations 12 times per year. The Tyrer-Cuzick Score is: 10.7% . Comparison is 05/28/2014. There are scattered areas of fibroglandular density. There is no dominant mass, micro calcific cluster or architectural distortion that would indicate malignancy. There are no additional findings on 3D tomosynthesiss. There is no change from the prior study. Impression: BIRADS/ACR category 1 mammogram. Negative. Recommendation: Routine annual screening mammography. This mammogram was interpreted with the aid of a FDA approved computer-aided detection system. A. Negative mammogram reports should not delay biopsy if a dominant or clinically suspicious mass is present. B. Not all breast cancers are identified by mammography or tomosynthesis. C. Adenosis and dense breasts may obscure an underlying neoplasm. Patient letter M1. Electronically Signed by Erasto Mckeon MD 06/07/2019 12:59 P
== END ==
LOC: M WHC 10:25
PROVIDERS: ATTEND Student in an Organized Health Care Education/Training Program
DX: Z12.31 Encounter for screening mammogram for malignant neoplasm of breast (principal)

== ENCOUNTER 2019-06-19 10:14 | Inpatient (IN) | payer OTHER ==
--- NOTE | 2019-06-15 07:20 | HPE ---
DATE OF SCHEDULED ADMISSION: 06/19/2019 CHIEF COMPLAINT: Right knee pain. HISTORY OF PRESENT ILLNESS: Anne is a pleasant 44-year-old female with progressively worsening right knee pain and stiffness. She has failed to improve with conservative treatment. She has elected for surgery for her continued symptoms. She has pain with weightbearing activities and her activities of daily living. X-rays of her knee are notable for advanced osteoarthritis of the right knee joint. She has consented for a right total knee arthroplasty by Dr. Inder Nichols. Medical optimization was performed by Dr. Montanez. ALLERGIES: PENICILLIN. CURRENT MEDICATIONS: - gabapentin 800 mg three times a day - tramadol 50 mg up to four times a day - 4 mg three times a day - vitamin B12 500 mg twice a day - hydrochlorothiazide 12.5 mg once a day - pantoprazole sodium 40 mg once a day - lisinopril 5 mg once a day - levocetirizine 5 mg once a day - prazosin 5 mg once a day - amitriptyline 50 mg once a day. - ziprasidone 60 mg twice a day - atorvastatin 20 mg once a day PAST MEDICAL HISTORY: Includes: Hypertension. Heart disease. High cholesterol. Anxiety. Depression. History of a heart attack. PAST SURGICAL HISTORY: Includes: Dilation and curettage (D and C). Cholecystectomy. Two hernia repairs. Arthroscopic right knee surgery. Back microdiscectomy. Gastric bypass. SOCIAL HISTORY: This patient is disabled, does not smoke and occasionally drinks alcohol. FAMILY HISTORY: Noncontributory. REVIEW OF SYSTEMS: This patient denies chest pain, heart palpitations, cough, wheezing, difficulty breathing and shortness of breath. She denies abdominal pain, nausea, vomiting, diarrhea or constipation. She denies recent upper respiratory infection or urinary tract infection symptoms. She does complain of persistent pain with weightbearing activities in the right knee. PHYSICAL EXAMINATION: General: She is well-nourished, well-developed in no acute distress, alert female patient. She walks with a moderate limp, favoring the right lower extremity. She is now using assistive devices. Vital signs: She is 66-1/2 inches tall, weighs 175.4 pounds, temperature 97.8, blood pressure 121/81, respirations of 16, pulse of 62. Neck was supple without adenopathy or jugular venous distension. There were no carotid bruits appreciated upon auscultation. Lungs were clear to auscultation without rales or wheeze throughout. Heart: Regular rate and rhythm. Abdomen: Bowel sounds were present. Extremities: Examination of the knee revealed intact skin. The patient had decreased range of motion due to pain and stiffness. The limb is neurovascularly intact. IMAGING/LAB: Chest x-ray Showed no acute cardiopulmonary disease processes. EKG: Showed normal sinus rhythm at 76 beats per minute. Pro-time 14.1, INR 1.12. CBC showed a platelet count of 142, otherwise within normal limits with a sedimentation rate of 5, glucose 81, BUN 9, creatinine 0.72, sodium 142, potassium 3.1. IMPRESSION: Symptomatic osteoarthritis of the right knee joint. PLAN: Consented for a right total knee arthroplasty by Dr. Inder Nichols.
[2019-06-19] VITALS (8 sets, daily range): BP systolic 111–142; BP diastolic 72–98
[~2019-06-19] VITALS: Ht 170.2 cm; Wt 76.7 kg
[~2019-06-19 10:14] MED LIST changes: +BUPIVACAINE LIPOSOME/PF 1.3% 20ML VIAL (13.3MG/ML)(EXPAREL)(C9290 PER1MG) As Ordered ONE; +CLINDAMYCIN 900 MG in IV 1 EA IV ONE; +CLINDAMYCIN INJ 900MG/6ML VIAL As Ordered ONE; +EPINEPHrine INJ 1 MG/ML 1ML AMP As Ordered ONE; +LIDOCAINE 1% MDV 20ML VIAL SQ PRN; +LIDOCAINE 2% INJ 100 MG/5 ML SDV (FOR ANES.) As Ordered ONE; +LR 1,000 ML IV ONE; +MIDAZOLAM INJ 2 MG/2 ML VIAL (J2250) As Ordered ONE; +ONDANSETRON 4MG/2ML VIAL (J2405) As Ordered ONE; +PROPOFOL 200 MG/20 ML VIAL As Ordered ONE; +TRANEXAMIC ACID 100 MG/ML 10ML VIAL As Ordered ONE; +dexameTHASONE 4 MG/ML 1ML VIAL (J1100) As Ordered ONE
[2019-06-19] MEDS ORDERED: fentaNYL 100 MCG/2 ML INJECTION (J3010) As Ordered ONE (11:15)
[2019-06-19] MEDS ORDERED: MIDAZOLAM INJ 2 MG/2 ML VIAL (J2250) As Ordered ONE (11:15)
--- NOTE | 2019-06-19 11:19 | IPN ---
DATE: 06/19/2019 The patient was seen and examined. She wished to have a right total knee arthroplasty. She is quite young at 44 years of age but understands the nature of this, the risks of bleeding, infection, damage to nerves, vessels, persistent pain, wear loosening, blood clots, medical problems, among others. She does have some medical issues. Preoperative clearance was obtained.
[2019-06-19] MEDS ORDERED: fentaNYL 100 MCG/2 ML INJECTION (J3010) IV ONE (12:00)
[2019-06-19] MEDS ORDERED: MIDAZOLAM INJ 2 MG/2 ML VIAL (J2250) IV ONE (12:00)
[2019-06-19] MEDS ORDERED: ACETAMINOPHEN 1000MG 100ML IV BTL (OFIRMEV) (J0131 PER 10MG) As Ordered ONE (12:15)
[2019-06-19] MEDS ORDERED: PROPOFOL 200 MG/20 ML VIAL As Ordered ONE ×2 (12:42→13:16)
[2019-06-19] MEDS ORDERED: HYDROMORPHONE HCL 0.5 MG/ 0.5 ML SYRINGE (J1170 PER 1) IV PRN (14:00)
[2019-06-19] MEDS ORDERED: ONDANSETRON 4MG/2ML VIAL (J2405) IV PRN ×2 (14:00→15:01)
[2019-06-19] MEDS ORDERED: fentaNYL 100 MCG/2 ML INJECTION (J3010) IV PRN (14:00)
[2019-06-19] MEDS ORDERED: LR 1,000 ML IV SCH (14:00)
[2019-06-19] MEDS ORDERED: PERCOCET 5MG/325MG TAB PO PRN (14:00)
[2019-06-19] MEDS ORDERED: LIDOCAINE 1% MDV 20ML VIAL ONE (14:23)
[2019-06-19] MEDS ORDERED: dexameTHASONE 10 MG/1 ML VIAL PRES.FREE (J1100) ONE (14:23)
[2019-06-19] MEDS ORDERED: ROPIvacaine 0.5% 30 ML INJECTION (J2795 PER 1MG) ONE (14:23)
--- NOTE | 2019-06-19 14:29 | REP ---
RIGHT KNEE, TWO VIEWS: Two views of the right knee performed. A total knee prosthesis is in good position. Osseous structures are well aligned and intact. Metallic skin kailee are seen anteriorly. Electronically Signed by Erasto Hernandez MD 06/19/2019 06:31 P
[2019-06-19] MEDS ORDERED: ACETAMINOPHEN TAB 650MG DOSE (2X325MG) PO PRN (15:01)
[2019-06-19] MEDS ORDERED: MORPHINE 4 MG/ML 1ML VIAL/SYRINGE (J2270) IV PRN ×2 (15:01)
[2019-06-19] MEDS ORDERED: FLEET ENEMA PR PRN (15:01)
[2019-06-19] MEDS: LR 1,000 ML IV SCH (15:01)
--- NOTE | 2019-06-19 16:39 | RO ---
DATE OF PROCEDURE: 06/19/2019 PREOPERATIVE DIAGNOSIS : Right knee osteoarthritis. POSTOPERATIVE DIAGNOSIS: Right knee osteoarthritis. PROCEDURE: Right total knee arthroplasty. SURGEON: Dr. Inder Nichols CUSTOMER CARE ASSISTANT: Jonathon Tripathi ANESTHESIA: Spinal. ESTIMATED BLOOD LOSS: Less than 50 COMPLICATIONS: None. INDICATIONS: This is a 44-year woman with gradually worsening knee pain with severe arthritis and wished to have surgical treatment. PROCEDURE: The patient was taken to the operating room and placed in the supine position after spinal anesthesia was induced. The right lower extremity was prepped and draped in usual sterile fashion. Tourniquet was inflated after time-out was performed and then created longitudinal incision over the anterior aspect of the right knee. Sharp dissection was carried down through subcutaneous tissue. I performed a medial parapatellar arthrotomy. Flexed the knee up removed some osteophytes and used the canal initiating reamer on the femoral side. Intramedullary guide was placed at the appropriate amount of valgus 5 degrees and 9 mm cut this was in the distal femoral cut was made. I sized the femur to be a five. The drill holes were placed in the end of the femur. The cutting block was secured. The remaining cuts were made. I then prepared the tibial surface. The tibial alignment guide was placed appropriate amount of valgus posterior slope and this was pinned in place at 4 mm off the low side cut was then made protecting soft tissues. I then placed the box cutting device on the size five and made the box cut in the usual fashion. Removed this bone in the PCL. I elected to a posterior stabilized because of her significant deformity that she had. I then prepared the tibial tray size four fit nicely. This pinned in place, drilled broached. Spacer blocks were also used and a size 10 seemed to be a post appropriate in flexion/extension and alignment and balance. Trial components were then inserted and a size 10 polyethylene seemed to be excellent fit in flexion/extension there was excellent stability and alignment. I then freehand cut the patella removing about 7 mm of bone was very sclerotic. Large osteophytes were removed throughout the procedure including large ones in the proximal tibia and along the edge of the femur. Sized the patella to be a 35. This was drilled the trial button was placed the patella tracked quite nicely. I had also removed soft tissue and osteophytes from either side and the knee prior to placement of the trial components. I then removed the trial components. I drilled the femur holes. The instruction assistant principal prepared the bone cement in the modern technique. I then irrigated copiously dried the bony surfaces, cemented on the components and placed the polyethylene, cemented on the patella, held in place clamp. I removed all excess bone cement. The Exparel was placed in the deep tissues. TXA was placed in deep tissues. I irrigated copiously multiple times. Again irrigated the deeply at this point and prepared the deep layer with #1 Vicryl suture in a running Stratafix. Subcu was closed with 2-0 Vicryl, skin with kailee. Sterile dressing was applied. Tourniquet was deflated and she was taken to recovery room in stable condition. No known complications. The plan will be routine postop. The instruction assistant principal was instrumental in holding retractors and assisting in mixing the bone cement and assisting in wound closure.
[2019-06-19] MEDS ORDERED: PILL CUTTER 1 EACH XX PRN (18:15)
[2019-06-19] MEDS: PERCOCET 5MG/325MG TAB PO PRN ×2 (18:25→23:41)
[2019-06-19] MEDS: CLINDAMYCIN 900 MG in IV 1 EA IV SCH (20:17)
[2019-06-19] MEDS: ZIPRASIDONE 20MG CAPSULE (GEODON) PO SCH (20:18)
[2019-06-19] MEDS: GABAPENTIN 400 MG CAP PO SCH (20:19)
[2019-06-19] MEDS: tiZANidine 4 MG TAB PO SCH (20:19)
[2019-06-19] MEDS ORDERED: ATORVASTATIN 20 MG TAB PO SCH (21:00)
[2019-06-19] MEDS ORDERED: AMITRIPTYLINE 50 MG TAB PO SCH (21:00)
[2019-06-19] MEDS ORDERED: PRAZOSIN 1 MG CAP PO SCH (21:00)
--- NOTE | 2019-06-19 21:50 | HPEPDOC ---
General Date of Admission Jun 19, 2019 at 10:14 Date of Service: Jun 19, 2019 Chief Complaint The patient is a 44-year-old female admitted with a reason for visit of Osteoarthritis Right Knee. Source: Patient, Old records Exam Limitations: No limitations Severity: Moderate History of Present Illness CONSULTATION REPORT: CONSULTATION REQUESTED BY DR HENDERSON CONSULTATION FOR THE MANAGEMENT OF MEDICAL COMMORBIDITIES HPI: This is a 44 year old female with progressively worsening right knee pain and stiffness. She had failed to improve with conservative treatment. She had elected for surgery for her continued symptoms. She has been admitted to the orthopedic service for elective right total knee replacement. She had an uneventful surgery. Hospitalist has been consulted for the management of medical commorbidities. At present she complains of pain in her right knee at the surgical site, dull aching in nature 6/10 in intensity with no radiation. Denies any nausea or vomiting any chest pain or sob. Home Medications Scheduled Amitriptyline HCl (Amitriptyline HCl) 50 Mg Tab, 50 MG PO QHS, (Reported) Atorvastatin Calcium (Atorvastatin Calcium) 20 Mg Tab, 20 MG PO DAILY, (Reported) Gabapentin (Gabapentin) 800 Mg Tab, 800 MG PO TID, (Reported) Hydrochlorothiazide (Hydrochlorothiazide) 25 Mg Tablet, 25 MG PO DAILY, (Reported) Lisinopril (Lisinopril) 5 Mg Tablet, Unknown Dose PO DAILY, (Reported) Pantoprazole Sodium (Pantoprazole Sodium) 40 Mg Tab, 40 MG PO BID, (Reported) Prazosin Hcl (Prazosin HCl) 5 Mg Cap, 5 MG PO QHS, (Reported) Tizanidine HCl (Tizanidine HCl) 4 Mg Tab, 4 MG PO TID, (Reported) Tramadol HCl (Tramadol HCl) 50 Mg Tablet, 50 MG PO QID, (Reported) Ziprasidone HCl (Ziprasidone HCl) 60 Mg Cap, 60 MG PO BID, (Reported) Allergies Coded Allergies: Penicillins (Verified Allergy, Intermediate, rash, 06/12/19) TAPE (Verified Allergy, Intermediate, burn veliz, 06/12/19) Past Medical History Medical History HTN HYPERLIPIDEMIA NONOBSTRUCTIVE CAD / NSTEMI IN 2018 HAD CARDIAC CATH THEN NO STENTS ANXIETY AND DEPRESSION SLEEP WALKING BIPOLAR DEPRESSION MORBID OBESITY S/P GASTRIC BYPASS IN SEP 2017--LOST 100 LBS EDWARD BEFORE GASTRIC BYPASS BUT WAS NONCOMPAINT WITH MACHINE USE SO TAKEN AWAY BY INSUVERNON Surgical History D&C 2000 CHOLECYSTECTOMY 2001 HERNIA REPAIR X2 BACK DISCECTOMY LUMBAR REGION 2017 GASTRIC BYPASS 10/06/172017 RIGHT KNEE ARTHROSCOPY 2007 CARDIAC CATHETERIZATION 06/2018 Family History FATHER: , DIAGNOSED WITH HEART DISEASE, STROKE MOTHER: , DIAGNOSED WITH DIABETES, HEART DISEASE, CANCER 6 BROTHER(S) , 3 SISTER(S) - HEALTHY. 3DAUGHTER(S) - HEALTHY. Social History * Smoker: former Smoker, quit greater than 1 year Alcohol: Denies Drugs: denies A-FIB/CHADSVASC A-FIB History Current/History of A-Fib/PAF?: No Review of Systems Constitutional: Denies: Chills, Fever, Night Sweats Eyes: Denies: Pain, Vision change ENT: Denies: Head Aches, Ear Pain, Dysphagia Skin: Denies: Rash, Lesions, Breakdown Pulmonary: Denies: Dyspnea, Cough Cardiovascular: Denies: Chest Pain, Palpitations, Orthopnea, Paroxysmal Noc. Dyspnea, Lt Headedness Gastrointestinal: Denies: Nausea, Vomiting, Abdominal Pain, Diarrhea Genitourinary: Denies: Dysuria, Frequency, Incontinence, Retention Hematologic: Denies: Bruising, Bleeding Excessively Musculoskeletal: Reports: Joint Pain Physical Examination General Exam: Positive: Alert, Cooperative, No Acute Distress Eye Exam: Positive: PERRLA, Conjunctiva & lids normal, EOMI; Negative: Sclera icteric ENT Exam: Positive: Atraumatic, Mucous membr. moist/pink, Pharynx Normal Neck Exam: Positive: Supple; Negative: JVD, thyromegaly Chest Exam: Positive: Clear to auscultation, Normal air movement Heart Exam: Positive: Rate Normal, Regular Rhythm, Normal S1, Normal S2; Negative: Murmurs, Rubs Abdomen Exam: Positive: Normal bowel sounds, Soft; Negative: Tenderness, Hepatospenomegaly Extremity Exam: Positive: Normal pulses; Negative: Clubbing, Cyanosis, Edema Skin Exam: Positive: Nl turgor and temperature; Negative: Breakdown, Lesion Vital Signs Vital Signs Date Time Temp Pulse Resp B/P (MAP) Pulse Ox O2 Delivery O2 Flow Rate FiO2 06/19/19 20:18 135/96 06/19/19 20:00 97.4 76 17 99 06/19/19 11:40 3 Laboratory Data Labs 24H Laboratory Tests 2 06/19/19 10:59: Bedside Glucose (Misc Panel) 69L 06/19/19 11:00: Bedside Glucose (Misc Panel) 72 Assessment/Plan This is a 44 year old female with progressively worsening right knee pain and stiffness. She had failed to improve with conservative treatment. She had elected for surgery for her continued symptoms. She has been admitted to the orthopedic service for elective right total knee replacement. She had an uneventful surgery. Hospitalist has been consulted for the management of medical commorbidities. s/p Right total knee replacement Pain control as per ortho will continue her tizanidine at half the dosage. dvt prophylaxis as per orthopedics PT/OT Hypertension continue lisinopril with hold parameters. will also place hold parameters on prazosin which she actually takes for psych issues. Bipolar disorder/sleep walking continue Geodon, prazosin, amitryptiline Hyperlipidemia continue statin Chronic back pain with h/o back surgery continue gabapentin H/O Morbid obesity with gastric bypass surgery Plan / VTE VTE Prophylaxis Ordered?: Yes KEVIN IRWIN MD Jun 19, 2019 21:50
[2019-06-20 02:00] VITALS: BP 108/74
[2019-06-20] MEDS: LR 1,000 ML IV SCH (03:33)
[2019-06-20] MEDS: CLINDAMYCIN 900 MG in IV 1 EA IV SCH (03:33)
[2019-06-20 05:58] LABS: HEMATOCRIT 30.2 % (36.0-47.0); HEMOGLOBIN 10.2 g/dl (12.0-15.5); MEAN CORPUSCULAR HEMOGLOBIN 31.6 pg (27.0-33.0); MEAN CORPUSCULAR HGB CONC 33.8 g/dl (32.0-36.5); MEAN CORPUSCULAR VOLUME 93.5 fl (80.0-96.0); PLATELET COUNT, AUTOMATED 151 10^3/uL (150-450); RED BLOOD COUNT 3.23 10^6/uL (4.00-5.40); WHITE BLOOD COUNT 8.3 10^3/uL (4.0-10.0)
[2019-06-20 06:00] VITALS: BP 114/76
[2019-06-20] MEDS ORDERED: XARE10TA PO (06:42)
[2019-06-20] MEDS ORDERED: PERC5TAB12 PO (06:42)
[2019-06-20] MEDS: tiZANidine 4 MG TAB PO SCH ×2 (08:41→16:53)
[2019-06-20] MEDS: PERCOCET 5MG/325MG TAB PO PRN ×2 (08:41→16:52)
[2019-06-20] MEDS: GABAPENTIN 400 MG CAP PO SCH ×2 (08:41→16:52)
[2019-06-20] MEDS: ZIPRASIDONE 20MG CAPSULE (GEODON) PO SCH (08:42)
[2019-06-20] MEDS ORDERED: INFLUENZA QUADRIVALENT PF VACCINE 0.5ML SYRINGE (90686) IM ONE (09:00)
[2019-06-20] MEDS ORDERED: MOM 30ML SUSPENSION UDC PO SCH (09:00)
[2019-06-20] MEDS ORDERED: SENOKOT S TAB PO SCH (09:00)
[2019-06-20] MEDS ORDERED: MIRALAX *UNIT DOSE* 17GM PACKET PO SCH (09:00)
[2019-06-20 10:00] VITALS: BP 94/55
[2019-06-20 14:00] VITALS: BP 95/61
[2019-06-20] MEDS ORDERED: RIVAROXABAN 10 MG TAB (XARELTO) PO SCH (18:00)
--- NOTE | 2019-06-21 17:46 | DSES ---
DATE OF ADMISSION: 06/19/2019 DATE OF DISCHARGE: 06/20/2019 ADMISSION DIAGNOSIS: Osteoarthritis, right knee. OTHER DIAGNOSES: 1. Hypertension. 2. Elevated lipids. 3. Coronary artery disease status post stenting. 4. Anxiety. 5. Depression. 6. Bipolar. 7. Morbid obesity, status post gastric bypass in 2018. 8. Sleep apnea. DISCHARGE DIAGNOSIS: Osteoarthritis right knee, status post right total knee arthroplasty. OPERATION PERFORMED: Right total knee arthroplasty. HISTORY: This is a 44-year-old female patient with progressively worsening right knee pain and stiffness. She was noted to have severe osteoarthritis on x-rays and had significant limitations in activities of daily living (ADLs) and elected for surgery for her persistent symptoms. She was admitted for elective knee replacement on the right side. HOSPITAL COURSE: The patient was admitted on day of surgery and underwent a right total knee arthroplasty, which was uneventful. She did well in the postoperative period, and her hospital course was without complications. On day of discharge she was doing well, weightbearing as tolerated on her right lower extremity. She will move her right knee to prevent stiffness. She will use thromboembolic deterrent (ZARIA) stockings for 30 days postoperatively for deep vein thrombosis (DVT) prophylaxis. She will also use Xarelto 10 mg per the protocol for DVT prophylaxis. She will resume her preoperative medications and diet. She was given instructions to include, but not limited to, wound monitoring and activity limitations. She will followup in our office in 10-14 days for surgical followup. Please refer to the medical record further detail.
== END 2019-06-20 17:50 | disposition home or self-care (01) | DRG 302 ==
LOC: M OR 10:14 → M MS5PR 15:28
PROVIDERS: ADMIT Orthopaedic Surgery; ATTEND Orthopaedic Surgery
PROC: 0SRC0J9 Replacement of Right Knee Joint with Synthetic Substitute, Cemented, Open Approach (ICD-10-PCS; principal; 2019-06-19 12:45)
DX: M17.11 Unilateral primary osteoarthritis, right knee (principal); I10 Essential (primary) hypertension; E78.5 Hyperlipidemia, unspecified; F41.9 Anxiety disorder, unspecified; F31.9 Bipolar disorder, unspecified; I25.2 Old myocardial infarction; R26.89 Other abnormalities of gait and mobility; F51.3 Sleepwalking [somnambulism]; E78.00 Pure hypercholesterolemia, unspecified; Z98.84 Bariatric surgery status; Z87.891 Personal history of nicotine dependence; Z88.0 Allergy status to penicillin; Z79.891 Long term (current) use of opiate analgesic; Z79.899 Other long term (current) drug therapy

== ENCOUNTER → 2019-07-03 | Outpatient (CLI) | payer OTHER ==
[~2019-07-03] MED LIST changes: -BUPIVACAINE LIPOSOME/PF 1.3% 20ML VIAL (13.3MG/ML)(EXPAREL)(C9290 PER1MG) As Ordered ONE; -CLINDAMYCIN 900 MG in IV 1 EA IV ONE; -CLINDAMYCIN INJ 900MG/6ML VIAL As Ordered ONE; -EPINEPHrine INJ 1 MG/ML 1ML AMP As Ordered ONE; -LIDOCAINE 1% MDV 20ML VIAL SQ PRN; -LIDOCAINE 2% INJ 100 MG/5 ML SDV (FOR ANES.) As Ordered ONE; -LR 1,000 ML IV ONE; -MIDAZOLAM INJ 2 MG/2 ML VIAL (J2250) As Ordered ONE; -ONDANSETRON 4MG/2ML VIAL (J2405) As Ordered ONE; +PERC5TAB12 PO; -PROPOFOL 200 MG/20 ML VIAL As Ordered ONE; -TRANEXAMIC ACID 100 MG/ML 10ML VIAL As Ordered ONE; +XARE10TA PO; -dexameTHASONE 4 MG/ML 1ML VIAL (J1100) As Ordered ONE
--- NOTE | 2019-07-03 10:07 | REP ---
Right lower extremity Duplex Doppler venous ultrasound: Real time compression and duplex Doppler interrogation of the right lower extremity deep venous system is performed. The right common femoral, superficial femoral and popliteal veins are fully compressible with transducer pressure and demonstrate normal spontaneous and phasic flow, without evidence of deep venous thrombosis. Impression: No evidence of deep venous thrombosis of the right lower extremity femoral popliteal venous system. In the soft tissues [id number] there is a complex fluid collection measuring 8.7 x 2.6 x 10.1 cm. Electronically Signed by Erasto Hernandez MD 07/03/2019 09:59 A
== END ==
LOC: M RAD 09:21
PROVIDERS: ATTEND Physician Assistant
DX: M79.604 Pain in right leg (principal); R22.41 Localized swelling, mass and lump, right lower limb

== ENCOUNTER → 2019-07-24 | Outpatient (CLI) | payer OTHER ==
--- NOTE | 2019-07-26 03:44 | ECWPNPC ---
PATIENT NAME: DUCLE CHOWDHURY : 1975 GENDER: FEMALE VISIT DATE: 07/24/2019 DISCHARGE DATE: 07/24/19 1214 VISIT LOCKED DATE TIME: PHYSICIAN: JIMBO VARGAS RESOURCE: JIMBO VARGAS REASON FOR APPOINTMENT 1. LBP/MED MGMNT HISTORY OF PRESENT ILLNESS HISTORY OF PRESENT ILLNESS: PAIN THE PATIENT DESCRIBES THE PAIN... 44-YEAR-OLD FEMALE IN FOR CHRONIC PAIN FOLLOW-UP. SHE RATES HER PAIN CURRENTLY AT A 7 OUT OF 10 AND DESCRIBES IT ACHING AND BURNING. SHE DOES FEEL MEDICATIONS ARE WORKING WELL AND DENIES MED SIDE EFFECTS AT THIS TIME. SHE DOES ADMIT TO A RECENT TOTAL KNEE REPLACEMENT. FALL RISK SCREENING: SCREENING :NO FALLS REPORTED IN THE LAST YEAR CURRENT MEDICATIONS TAKING XYZAL ALLERGY 24HR 5 MG TABLET 1 TABLET IN THE EVENING ORALLY ONCE A DAY TAKING HYDROCHLOROTHIAZIDE 12.5 MG TABLET 1 TAB ORAL DAILY TAKING LEVOCETIRIZINE DIHYDROCHLORIDE 5 MG TABLET 1 TABLET IN THE EVENING ORALLY ONCE A DAY TAKING MECLIZINE HCL 25 MG TABLET 1 TABLET NEEDED ORALLY TID, NOTES: NOT LATELY TAKING VITAMIN D (ERGOCALCIFEROL) 56156 UNIT CAPSULE 1 CAPSULE ORALLY WEEKLY TAKING VITAMIN B-12 500 MCG TABLET 2 TABLETS ORALLY ONCE A DAY TAKING PRAZOSIN HCL 5 MG CAPSULE 1 CAPSULE AT BEDTIME ORALLY ONCE A DAY TAKING ZIPRASIDONE HCL 60 MG CAPSULE 1 CAPSULE WITH FOOD ORALLY TWICE A DAY TAKING FAMOTIDINE 20 MG TABLET 1 TABLET ORALLY BEFORE BEDTIME AND PRN TAKING GABAPENTIN 800 MG TABLET 1 TABLET ORALLY THREE TIMES DAILY TAKING VOLTAREN 1 % GEL DIRECTED TRANSDERMAL DAILY, NOTES: NOT LATELY TAKING LISINOPRIL 5 MG TABLET 1 TABLET ORALLY ONCE A DAY TAKING ATORVASTATIN CALCIUM 20 MG TABLET TAKE ONE TABLET BY MOUTH EVERY DAY TAKING KLONOPIN 0.5 MG TABLET 1 TABLET AT BEDTIME ORALLY ONCE A DAY TAKING TIZANIDINE HCL 4 MG TABLET 1 TABLET NEEDED ORALLY THREE TIMES A DAY TAKING TRAMADOL HCL 50 MG TABLET 1 TABLET NEEDED ORALLY EVERY 6 HRS PRN PAIN MDD=4 TAKING PANTOPRAZOLE SODIUM 40 MG TABLET DELAYED RELEASE TAKE ONE TABLET BY MOUTH TWICE A DAY NOT-TAKING AMITRIPTYLINE HCL 50 MG TABLET 1 TABLET ORALLY ONCE A DAY NOT-TAKING POTASSIUM CHLORIDE ER 20 MEQ TABLET EXTENDED RELEASE 1 TABLET WITH FOOD ORALLY BID NOT-TAKING GABAPENTIN 800 MG TABLET TAKE ONE TABLET BY MOUTH THREE TIMES A DAY , NOTES: DUPLICATE NOT-TAKING NORVASC 2.5MG TABLET ORAL ORALLY DAILY MEDICATION LIST REVIEWED AND RECONCILED WITH THE PATIENT PAST MEDICAL HISTORY HTN BORDERLINE DIABETIC HIGH CHOLESTEROL AND TRIGLYSORIDES ANXIETY AND DEPRESSION BIPOLAR DEPRESSION IN HX AL GASTRIC BYPASS LOW BACK PAIN ALLERGIES PCN: RASH - ALLERGY TAPE: RASH - ALLERGY SURGICAL HISTORY D&C 2000 CHOLECYSTECTOMY 2001 HERNIA REPAIR X2 BACK DISCECTOMY LUMBAR REGION 2017 GASTRIC BYPASS 10/06/172017 RIGHT KNEE ARTHROSCOPY 2007 CARDIAC CATHETERIZATION 06/2018 RIGHT KNEE REPLACEMENT 06/2019 FAMILY HISTORY FATHER: , DIAGNOSED WITH UNSPECIFIED HEART DISEASE, UNSPECIFIED CEREBRAL ARTERY OCCLUSION WITH CEREBRAL INFARCTION MOTHER: , DIABETES, UNSPECIFIED HEART DISEASE, OTHER MALIGNANT NEOPLASM OF UNSPECIFIED SITE 6 BROTHER(S) , 3 SISTER(S) - HEALTHY. 3DAUGHTER(S) - HEALTHY. SOCIAL HISTORY GENERAL: TOBACCO USE ARE YOU A:FORMER SMOKER HOW LONG HAS IT BEEN SINCE YOU LAST SMOKED?1-5 YEARS HIV / HEP-C SCREENING HIV TEST OFFERED TO PATIENT:YES DATE OFFERED:03/21/2018 TEST ACCEPTED:NO HEP-C TEST OFFERED TO PATIENT:YES DATE OFFERED:03/21/2018 REASON:PATIENT DECLINED TEST ACCEPTED:NO REASON:PATIENT DECLINED BROCHURE PROVIDED TO PATIENTNO OTHERS AT HOME: 3 DGTRS AND BOYFRIEND AND CAT. EDUCATION LEVEL OF EDUCATION:HIGH SCHOOL LANGUAGE LANGUAGES SPOKEN:MOZAMBICAN DOMESTIC VIOLENCE DO YOU FEEL SAFE IN YOUR ENVIRONMENT?YES RECREATIONAL DRUG USE DRUG USE?YES HOW OFTEN AND HOW MUCH? MARIJUANA 2X DAY LEARNING BARRIERS / SPECIAL NEEDS BARRIERS TO LEARNING?NO HEARING IMPAIRED?NO VISION IMPAIRED?YES COGNITIVELY IMPAIRED?NO :CORRECTIVE LENSES READINESS TO LEARN?YES LEARNING PREFERENCES?YES :DEMONSTRATION/VERBAL INSTRUCTION LEARNING CAPABILITIES PRESENT?YES EMOTIONAL BARRIERS?NO SPECIAL DEVICES?YES : BRACE RIGHT KNEE TRIAL PARALEGAL NEEDED?NO PAIN CLINIC PFS, CLERGY, PUBLIC HEALTH REFERRALS PFS REFERRAL NEEDED?NO CLERGY REFERRAL NEEDED?NO PUBLIC HEALTH REFERRAL NEEDED?NO WAS THE PROVIDER NOTIFIED OF ANY PERTINENT INFO?YES N/A HAS THE PATIENT BEEN EDUCATED REGARDING HIS/HER PLAN OF CARE?YES HAS THE PATIENT BEEN EDUCATED REGARDING PAIN, THE RISK FOR PAIN, THE IMPORTANCE OF EFFECTIVE PAIN MANAGEMENT, AND THE PAIN ASSESSMENT PROCESS?YES LATEX QUESTIONNAIRE LATEX ALLERGY : HAVE YOU EVER DEVELOPED ANY TYPE OF REACTION AFTER HANDLING LATEX PRODUCTS SUCH RUBBER GLOVES, CONDOMS, DIAPHRAGMS, BALLOONS, SOCKS, OR UNDERWEAR?NO REACTION TO TAPE IF ON TOO LONG LATEX ALLERGY : HAVE YOU EVER DEVELOPED ANY TYPE OF REACTION DURING OR AFTER DENTAL APPOINTMENT, VAGINAL/RECTAL EXAMINATION, SURGICAL PROCEDURE, OR ANY OTHER EXPOSURE?NO LATEX RISK : HAVE YOU EVER HAD ANY DIFFICULTY BREATHING OR HIVES AFTER EATING OR HANDLING ANY FRUITS, OR VEGETABLES; SUCH KIWI, BANANAS, STONE FRUITS, OR CHESTNUTSNO LATEX RISK : DO YOU HAVE A PREVIOUS PERSONAL HISTORY OF MORE THAN NINE SURGERIES, SPINA BIFIDA, OR REPEATED CATHERIZATIONS? NO LATEX RISK : ARE YOU FREQUENTLY EXPOSED TO LATEX PRODUCTS IN YOUR OCCUPATION?NO DATE ASKED : 12/24/2018 CAFFEINE CAFFEINE USE?NO ADVANCE DIRECTIVE ADVANCE DIRECTIVE DISCUSSED WITH PATIENT:YES PT DOES NOT HAVE ANY ADVANCED DIRECTIVES AND SHE DECLINES INFORMATION ON HCP AT THIS TIME. ORIENTAL ORTHODOX [id number] CATHOLIC MARITAL STATUS: . ALCOHOL SCREENING DID YOU HAVE A DRINK CONTAINING ALCOHOL IN THE PAST YEAR?NO POINTS0 INTERPRETATIONNEGATIVE OCCUPATION: DISABLED [employer]. SEXUAL HX HAD SEX IN THE LAST 12 MONTHS (VAGINAL, ORAL, OR ANAL)?YES WITHMEN ONLY USE PROTECTION?NO LMP:03/2018 HAVE YOU EVER HAD AN STD?NO REVIEWED WITH PATIENT 07/05/18 1317 JSREVIEWED WITH PT 07/31/18 1512 BV08/13/18 1220 REVIEWED WITH PT. AD10/02/18 REVIEWED WITH PT. ADREVIEWED WITH PT 12/24/18 1342 BVREVIEWED WITH PATIENT 07/24/19 1145 JS. HOSPITALIZATION/MAJOR DIAGNOSTIC PROCEDURE SURGERY RELATED IN PT MENTAL HEALTH 2000 CHEST PAIN 03/07/2018 AL 06/2018 REVIEW OF SYSTEMS REVIEWED BY: PROVIDER: GABO SCRUGGS . CONSTITUTIONAL: ANY CHANGE IN YOUR MEDICAL CONDITION? YES, RIGHT KNEE REPLACEMENT IN JUNE . CHILLS NO . FEVER NO . INFECTION: DO YOU HAVE NEW INFECTIONS? NO . DO YOU HAVE HISTORY OF MRSA? NO . MUSCULOSKELETAL: ANY NEW PATTERNS OF PAIN OR NUMBNESS? NO . GASTROENTEROLOGY: ANY NEW CHANGE IN BOWEL CONTROL? NO . GENITOURINARY: ANY NEW CHANGE IN BLADDER CONTROL? NO . IS THERE A CHANCE YOU COULD BE ? NO . HEMATOLOGY/LYMPH: DO YOU TAKE ANY BLOOD THINNERS? (FOR EXAMPLE- COUMADIN, PLAVIX, AGGRENOX, PLATEL, PRADAXA, OR XARELTO) NO . WHEN WAS YOUR LAST DOSE? DATE: TIME: . NEUROLOGY: HAVE YOU FALLEN IN THE PAST 12 MONTHS? YES, STATES FALL GETTING OUT OF VAN, THINKS HER BLOOD PRESSURE DROPPED CAUSING HER TO FALL. NO INJURIES, NO ED VISIT, NO IMAGING . ANY NEW EXTREMITY NUMBNESS OR WEAKNESS? NO . CARDIOLOGY: DO YOU HAVE A PACEMAKER OR DEFIBRILLATOR? NO . RESPIRATORY: HAVE YOU BEEN SICK IN THE PAST WEEK? NO . FEVER NO . FLU LIKE SYMPTOMS? NO . COUGH NO . INTEGUMENTARY: DO YOU HAVE ANY RASHES OR OPEN SORES? NO . ALLERGIC/IMMUNO: ARE YOU ALLERGIC TO IV DYE? NO . ANY NEW ALLERGIES? NO . PSYCHIATRIC: DO YOU HAVE THOUGHTS OF HURTING YOURSELF OR SOMEONE ELSE? NO . ARE YOU ABUSED, NEGLECTED, OR IN AN UNSAFE ENVIRONMENT? NO . ENDOCRINOLOGY: ARE YOU DIABETIC? NO . OTHER: DO YOU NEED ANY PRESCRIPTIONS? NO . IF YES, PLEASE LIST: ____ . ANY NEW PROBLEMS WITH YOUR MEDICATIONS? NO . WHEN DID YOU LAST EAT? ____ . WHEN DID YOU LAST DRINK? ____ . WHAT DID YOU LAST DRINK? ____ . NAME OF PERSON DRIVING YOU HOME? ____ . DO YOU HAVE ANY OTHER QUESTIONS OR CONCERNS NO . VITAL SIGNS WT 172.8 LBS, HT 67", BMI 27.06 INDEX, BP 124/77 MM HG, HR 75 /MIN, RR 18 /MIN, TEMP 98.6 F, OXYGEN SAT % 95%, SAFE IN ENV? (Y/N) YES, NA INITIALS AW 1139, REVIEWED BY: BRENT. EXAMINATION GENERAL EXAMINATION: GENERALNO ACUTE DISTRESS, WELL NOURISHED AND HYDRATED. PSYCHAPPROPRIATE MOOD AND AFFECT . LUNGS:CLEAR TO AUSCULTATION BILATERALLY, NO WHEEZES, RHONCHI, RALES. HEART:NO MURMURS, REGULAR RATE AND RHYTHM. ASSESSMENTS SPONDYLOSIS OF LUMBAR REGION WITHOUT MYELOPATHY OR RADICULOPATHY - M47.816 (PRIMARY) TREATMENT SPONDYLOSIS OF LUMBAR REGION WITHOUT MYELOPATHY OR RADICULOPATHY CLINICAL NOTES: 44-YEAR-OLD FEMALE IN FOR CHRONIC PAIN FOLLOW-UP. GIVEN PRESENTING SYMPTOMS AND RESULTS PHYSICAL EXAMINATION RECOMMENDED CONTINUATION OF CURRENT MEDICATION REGIMEN WITH FOLLOW-UP IN 3 MONTHS. INFORMED PATIENT SHOULD HER PAIN INCREASE PRIOR TO HER FOLLOW-UP THAT SHE CAN CALL THE OFFICE FOR A POTENTIAL EARLIER APPOINTMENT. PATIENT HAS EXPRESSED UNDERSTANDING OF AND WAS IN AGREEMENT WITH TREATMENT PLAN. GIVEN TIME TO ASK QUESTIONS AND EXPRESS CONCERNS., ISTOP REGISTRY REVIEWED AND DEMONSTRATES COMPLLIANCE. (REF # [id number] ) BRINGS IN MEDICATIONS WHICH IS APPROPRIATE FOR WHAT WAS DISPENSED. RECENT URINE TOXICOLOGY REVIEWED. NO UNAUTHORIZED MEDICATIONS. NO ILLICIT SUBSTANCES AND PRESCRIBED MEDICATIONS WERE PRESENT. PROCEDURE CODES FA211 ESTABILISHED PATIENT [facility] FACILITY CHARGE DISPOSITION & COMMUNICATION FOLLOW UP 3 MONTHS (REASON: CHRONIC PAIN) ELECTRONICALLY SIGNED BY LAKHWINDER DARBY ON 07/25/2019 AT 09:16 AM EST DISCLAIMER : THIS IS A VISIT SUMMARY EXTRACTED FROM THE [employer] CHART. IT IS NOT A COPY OF THE [employer] PROGRESS NOTE. YONI
== END ==
LOC: M PAIN 11:00
PROVIDERS: ATTEND Family Medicine
DX: M47.816 Spondylosis without myelopathy or radiculopathy, lumbar region (principal); G89.29 Other chronic pain; I10 Essential (primary) hypertension; Z86.59 Personal history of other mental and behavioral disorders; I25.2 Old myocardial infarction; Z98.84 Bariatric surgery status; Z96.651 Presence of right artificial knee joint; Z87.891 Personal history of nicotine dependence; Z88.0 Allergy status to penicillin; Z91.09 Other allergy status, other than to drugs and biological substances; Z79.899 Other long term (current) drug therapy

== ENCOUNTER → 2019-10-01 | Outpatient (CLI) | payer OTHER ==
[~2019-10-01] MED LIST changes: -BUPR300T34 PO; +BUPR300T92 PO; -METH4TAB28 PO; +METH4TAB8 PO
[2019-10-01 17:20] LABS: BASO % 0.9 % (0.0-1.0); EOS # 0.1 10^3/uL (0.0-0.5); EOS % 1.7 % (0.0-3.0); HEMATOCRIT 40.7 % (36.0-47.0); HEMOGLOBIN 12.7 g/dl (12.0-15.5); LYMPH # 1.4 10^3/uL (1.5-5.0); LYMPH % 39.7 % (24.0-44.0); MEAN CORPUSCULAR HEMOGLOBIN 28.6 pg (27.0-33.0); MEAN CORPUSCULAR HGB CONC 31.2 g/dl (32.0-36.5); MEAN CORPUSCULAR VOLUME 91.7 fl (80.0-96.0); MONO # 0.3 10^3/uL (0.0-0.8); NEUTROPHILS # 1.7 10^3/uL (1.5-8.5); NEUTROPHILS % 49.1 % (36.0-66.0); PLATELET COUNT, AUTOMATED 217 10^3/uL (150-450); RED BLOOD COUNT 4.44 10^6/uL (4.00-5.40); WHITE BLOOD COUNT 3.5 10^3/uL (4.0-10.0)
[2019-10-01 17:25] LABS: HEMOGLOBIN A1c 5.3 %
[2019-10-01 17:31] LABS: HEMATOCRIT 40.7 % (36.0-47.0)
[2019-10-01 17:39] LABS: ALBUMIN 3.5 GM/DL (3.2-5.2); ALT/SGPT 35 U/L (12-78); BILIRUBIN,TOTAL 0.3 MG/DL (0.2-1.0); BLOOD UREA NITROGEN 7 MG/DL (7-18); CALCIUM LEVEL 8.6 MG/DL (8.5-10.1); CARBON DIOXIDE LEVEL 31 MEQ/L (21-32); CHLORIDE LEVEL 107 MEQ/L (98-107); CREATININE FOR GFR 0.73 MG/DL (0.55-1.30); FERRITIN 20 NG/ML (8-252); GLOMERULAR FILTRATION RATE > 60.0 (>58); GLUCOSE, FASTING 66 MG/DL (70-100); IRON (FE) 52 UG/DL (50-170); MAGNESIUM LEVEL 1.9 MG/DL (1.8-2.4); PERCENT SATURATION 15.7 % (13.2-45.0); PHOSPHORUS LEVEL 3.3 MG/DL (2.5-4.9); POTASSIUM SERUM 3.9 MEQ/L (3.5-5.1); SODIUM LEVEL 142 MEQ/L (136-145); TOTAL 25(OH) VITAMIN D 40.8 NG/ML (30.0-100.0); TOTAL IRON BINDING CAPACITY 332 UG/DL (250-450); TOTAL PROTEIN 6.3 GM/DL (6.4-8.2); VITAMIN B12 LEVEL > 2000 PG/ML (247-911)
== END ==
LOC: M LAB 15:45
PROVIDERS: ATTEND Physician Assistant
DX: K91.2 Postsurgical malabsorption, not elsewhere classified (principal); E55.9 Vitamin D deficiency, unspecified; Z98.84 Bariatric surgery status; Z86.39 Personal history of other endocrine, nutritional and metabolic disease

== ENCOUNTER → 2019-10-07 | Outpatient (REF) | payer OTHER | LOC: M SFHCWAGY 10:51 | PROVIDERS: ATTEND Obstetrics & Gynecology | DX: N93.9 Abnormal uterine and vaginal bleeding, unspecified (principal) ==

== ENCOUNTER → 2019-10-16 | Outpatient (CLI) | payer OTHER ==
--- NOTE | 2019-10-17 13:37 | REP ---
Clinical : Abnormal uterine bleeding. Technique: Transabdominal pelvic ultrasound with color Doppler evaluation of the ovaries. Findings: Heterogeneous anteverted uterus measures 9.6 x 5.1 x 4.5 cm. Endometrial complex measures 6.0 mm thickness. No discrete uterine or endometrial abnormality appreciated. The bilateral ovaries are relatively normal in appearance and vascularity without torsion. The right ovary measures 3.7 x 3.0 x 1.5 cm (RI 0.74) and includes 1.8 cm complex likely physiologic hemorrhagic cyst. Left ovary measures 2.2 x 1.9 x 1.8 cm (RI 0.71). No pelvic fluid or adnexal mass lesion. Impression: 1. Relatively normal appearance to the uterus. 2. 1.8 cm complex right ovarian cyst likely physiologic. Consider reevaluation and 4-6 weeks if the patient remains symptomatic. Electronically Signed by Jessee Seymour MD 10/17/2019 01:28 P
== END ==
LOC: M WHC 15:25
PROVIDERS: ATTEND Obstetrics & Gynecology
DX: N93.9 Abnormal uterine and vaginal bleeding, unspecified (principal)

== ENCOUNTER → 2019-10-21 | Outpatient (CLI) | payer OTHER ==
--- NOTE | 2019-10-23 05:21 | ECWPNPC ---
PATIENT NAME: DULCE CHOWDHURY : 1975 GENDER: FEMALE VISIT DATE: 10/21/2019 DISCHARGE DATE: 10/21/19 1147 VISIT LOCKED DATE TIME: PHYSICIAN: JIMBO VARGAS RESOURCE: JIMBO VARGAS REASON FOR APPOINTMENT 1. 3 MONTHS HISTORY OF PRESENT ILLNESS HISTORY OF PRESENT ILLNESS: PAIN THE PATIENT DESCRIBES THE PAIN... 44-YEAR-OLD FEMALE IN FOR CHRONIC PAIN FOLLOW-UP. SHE RATES HER PAIN CURRENTLY AT AN 8 OUT OF 10 AND DESCRIBES IT ACHING, BURNING, AND SHARP. SHE FEELS HER MEDICATIONS ARE WORKING WELL AND DENIES MED SIDE EFFECTS AT THIS TIME. SHE WOULD LIKE TO DISCUSS TRIGGER POINT INJECTIONS FOR HER LOW BACK. FALL RISK SCREENING: SCREENING :NO FALLS REPORTED IN THE LAST YEAR CURRENT MEDICATIONS TAKING HYDROCHLOROTHIAZIDE 12.5 MG TABLET 1 TAB ORAL DAILY TAKING LEVOCETIRIZINE DIHYDROCHLORIDE 5 MG TABLET 1 TABLET IN THE EVENING ORALLY ONCE A DAY TAKING MECLIZINE HCL 25 MG TABLET 1 TABLET NEEDED ORALLY TID, NOTES: NOT LATELY TAKING VITAMIN D (ERGOCALCIFEROL) 89887 UNIT CAPSULE 1 CAPSULE ORALLY WEEKLY TAKING VITAMIN B-12 500 MCG TABLET 2 TABLETS ORALLY ONCE A DAY TAKING PRAZOSIN HCL 5 MG CAPSULE 1 CAPSULE AT BEDTIME ORALLY ONCE A DAY TAKING ZIPRASIDONE HCL 60 MG CAPSULE 1 CAPSULE WITH FOOD ORALLY TWICE A DAY TAKING GABAPENTIN 800 MG TABLET 1 TABLET ORALLY THREE TIMES DAILY TAKING VOLTAREN 1 % GEL DIRECTED TRANSDERMAL DAILY, NOTES: NOT LATELY TAKING PANTOPRAZOLE SODIUM 40 MG TABLET DELAYED RELEASE TAKE ONE TABLET BY MOUTH TWICE A DAY TAKING LISINOPRIL 5 MG TABLET 1 TABLET ORALLY ONCE A DAY TAKING TIZANIDINE HCL 4 MG TABLET 1 TABLET NEEDED ORALLY THREE TIMES A DAY TAKING TRAMADOL HCL 50 MG TABLET 1 TABLET NEEDED ORALLY EVERY 6 HRS PRN PAIN MDD=4 TAKING KLONOPIN 0.5 MG TABLET 1 TABLET AT BEDTIME ORALLY ONCE A DAY, MDD=1 TAKING AMITRIPTYLINE HCL 50 MG TABLET 1 TABLET ORALLY ONCE A DAY NOT-TAKING FAMOTIDINE 20 MG TABLET 1 TABLET ORALLY BEFORE BEDTIME AND PRN, NOTES: STOPPED NOT-TAKING ATORVASTATIN CALCIUM 20 MG TABLET TAKE ONE TABLET BY MOUTH EVERY DAY , NOTES: STOPPED NOT-TAKING XYZAL ALLERGY 24HR 5 MG TABLET 1 TABLET IN THE EVENING ORALLY ONCE A DAY, NOTES: ON LIST NOT-TAKING POTASSIUM CHLORIDE ER 20 MEQ TABLET EXTENDED RELEASE 1 TABLET WITH FOOD ORALLY BID NOT-TAKING GABAPENTIN 800 MG TABLET TAKE ONE TABLET BY MOUTH THREE TIMES A DAY , NOTES: DUPLICATE NOT-TAKING NORVASC 2.5MG TABLET ORAL ORALLY DAILY MEDICATION LIST REVIEWED AND RECONCILED WITH THE PATIENT PAST MEDICAL HISTORY HTN BORDERLINE DIABETIC HIGH CHOLESTEROL AND TRIGLYSORIDES ANXIETY, DEPRESSION AND PTSD BIPOLAR DEPRESSION IN HX IA GASTRIC BYPASS LOW BACK PAIN GERD GASTROPARESIS ARTHRITIS HIATAL HERNIA RECTOCELE ALLERGIES TAPE: RASH - ALLERGY PENICILLIN (FOR ALLERGIES USE ONLY): RASH - ALLERGY SURGICAL HISTORY D&C 2000 CHOLECYSTECTOMY 2001 HERNIA REPAIR X2 BACK DISCECTOMY LUMBAR REGION 2017 GASTRIC BYPASS 10/06/172017 RIGHT KNEE ARTHROSCOPY 2007 CARDIAC CATHETERIZATION 06/2018 RIGHT KNEE REPLACEMENT 06/2019 EGD 07/2010 FAMILY HISTORY FATHER: , DIAGNOSED WITH UNSPECIFIED HEART DISEASE, UNSPECIFIED CEREBRAL ARTERY OCCLUSION WITH CEREBRAL INFARCTION MOTHER: , OTHER MALIGNANT NEOPLASM OF UNSPECIFIED SITE, DIABETES, UNSPECIFIED HEART DISEASE 6 BROTHER(S) , 3 SISTER(S) - HEALTHY. 3DAUGHTER(S) - HEALTHY. SOCIAL HISTORY GENERAL: TOBACCO USE ARE YOU A:FORMER SMOKER HOW LONG HAS IT BEEN SINCE YOU LAST SMOKED?1-5 YEARS HIV / HEP-C SCREENING HIV TEST OFFERED TO PATIENT:YES DATE OFFERED:03/21/2018 TEST ACCEPTED:NO HEP-C TEST OFFERED TO PATIENT:YES DATE OFFERED:03/21/2018 REASON:PATIENT DECLINED TEST ACCEPTED:NO REASON:PATIENT DECLINED BROCHURE PROVIDED TO PATIENTNO OTHERS AT HOME: 3 DGTRS AND BOYFRIEND AND CAT. EDUCATION LEVEL OF EDUCATION:HIGH SCHOOL LANGUAGE LANGUAGES SPOKEN:YI DOMESTIC VIOLENCE DO YOU FEEL SAFE IN YOUR ENVIRONMENT?YES RECREATIONAL DRUG USE DRUG USE?YES HOW OFTEN AND HOW MUCH? 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 MANAGER NEEDED?NO PAIN CLINIC PFS, CLERGY, PUBLIC HEALTH REFERRALS PFS REFERRAL NEEDED?NO CLERGY REFERRAL NEEDED?NO PUBLIC HEALTH REFERRAL NEEDED?NO WAS THE PROVIDER NOTIFIED OF ANY PERTINENT INFO?YES N/A HAS THE PATIENT BEEN EDUCATED REGARDING HIS/HER PLAN OF CARE?YES HAS THE PATIENT BEEN EDUCATED REGARDING PAIN, THE RISK FOR PAIN, THE IMPORTANCE OF EFFECTIVE PAIN MANAGEMENT, AND THE PAIN ASSESSMENT PROCESS?YES LATEX QUESTIONNAIRE LATEX ALLERGY : HAVE YOU EVER DEVELOPED ANY TYPE OF REACTION AFTER HANDLING LATEX PRODUCTS SUCH RUBBER GLOVES, CONDOMS, DIAPHRAGMS, BALLOONS, SOCKS, OR UNDERWEAR?NO REACTION TO TAPE IF ON TOO LONG LATEX ALLERGY : HAVE YOU EVER DEVELOPED ANY TYPE OF REACTION DURING OR AFTER DENTAL APPOINTMENT, VAGINAL/RECTAL EXAMINATION, SURGICAL PROCEDURE, OR ANY OTHER EXPOSURE?NO DATE ASKED : 12/24/2018 LATEX RISK : HAVE YOU EVER HAD ANY DIFFICULTY BREATHING OR HIVES AFTER EATING OR HANDLING ANY FRUITS, OR VEGETABLES; SUCH KIWI, BANANAS, STONE FRUITS, OR CHESTNUTSNO LATEX RISK : DO YOU HAVE A PREVIOUS PERSONAL HISTORY OF MORE THAN NINE SURGERIES, SPINA BIFIDA, OR REPEATED CATHERIZATIONS? NO LATEX RISK : ARE YOU FREQUENTLY EXPOSED TO LATEX PRODUCTS IN YOUR OCCUPATION?NO CAFFEINE CAFFEINE USE?NO ADVANCE DIRECTIVE ADVANCE DIRECTIVE DISCUSSED WITH PATIENT:YES PT DOES NOT HAVE ANY ADVANCED DIRECTIVES AND SHE DECLINES INFORMATION ON HCP AT THIS TIME. BUDDHISM [id number] CONGREGATION MARITAL STATUS: . 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 SEXUAL HX HAD SEX IN THE LAST 12 MONTHS (VAGINAL, ORAL, OR ANAL)?YES WITHMEN ONLY USE PROTECTION?NO LMP:03/2018 HAVE YOU EVER HAD AN STD?NO REVIEWED WITH PATIENT 07/05/18 1317 JSREVIEWED WITH PT 07/31/18 1512 BV08/13/18 1220 REVIEWED WITH PT. AD10/02/18 REVIEWED WITH PT. ADREVIEWED WITH PT 12/24/18 1342 BVREVIEWED WITH PATIENT 07/24/19 1145 JS. HOSPITALIZATION/MAJOR DIAGNOSTIC PROCEDURE SURGERY RELATED IN PT MENTAL HEALTH 2000 CHEST PAIN 03/07/2018 IA 06/2018 REVIEW OF SYSTEMS REVIEWED BY: PROVIDER: GABO SCRUGGS . CONSTITUTIONAL: ANY CHANGE IN YOUR MEDICAL CONDITION? NO . CHILLS NO . FEVER NO . INFECTION: DO YOU HAVE NEW INFECTIONS? NO . DO YOU HAVE HISTORY OF MRSA? NO . MUSCULOSKELETAL: ANY NEW PATTERNS OF PAIN OR NUMBNESS? NO . GASTROENTEROLOGY: ANY NEW CHANGE IN BOWEL CONTROL? NO . GENITOURINARY: ANY NEW CHANGE IN BLADDER CONTROL? NO . IS THERE A CHANCE YOU COULD BE ? NO . HEMATOLOGY/LYMPH: DO YOU TAKE ANY BLOOD THINNERS? (FOR EXAMPLE- COUMADIN, PLAVIX, AGGRENOX, PLATEL, PRADAXA, OR XARELTO) NO . WHEN WAS YOUR LAST DOSE? DATE: TIME: . NEUROLOGY: HAVE YOU FALLEN IN THE PAST 12 MONTHS? NO . ANY NEW EXTREMITY NUMBNESS OR WEAKNESS? NO . CARDIOLOGY: DO YOU HAVE A PACEMAKER OR DEFIBRILLATOR? NO . RESPIRATORY: HAVE YOU BEEN SICK IN THE PAST WEEK? YES . FEVER NO . FLU LIKE SYMPTOMS? NO . COUGH NO . INTEGUMENTARY: DO YOU HAVE ANY RASHES OR OPEN SORES? NO . ALLERGIC/IMMUNO: ARE YOU ALLERGIC TO IV DYE? NO . ANY NEW ALLERGIES? NO . PSYCHIATRIC: DO YOU HAVE THOUGHTS OF HURTING YOURSELF OR SOMEONE ELSE? NO . ARE YOU ABUSED, NEGLECTED, OR IN AN UNSAFE ENVIRONMENT? NO . ENDOCRINOLOGY: ARE YOU DIABETIC? NO . OTHER: DO YOU NEED ANY PRESCRIPTIONS? NO . IF YES, PLEASE LIST: ____ . ANY NEW PROBLEMS WITH YOUR MEDICATIONS? NO . WHEN DID YOU LAST EAT? ____ . WHEN DID YOU LAST DRINK? ____ . WHAT DID YOU LAST DRINK? ____ . NAME OF PERSON DRIVING YOU HOME? ____ . DO YOU HAVE ANY OTHER QUESTIONS OR CONCERNS NO . VITAL SIGNS WT 173.6 LBS, HT 67 IN, BMI 27.19 INDEX, BP 121/72 MM HG, HR 66 /MIN, RR 18 /MIN, TEMP 97.5 F, OXYGEN SAT % 100%, NA INITIALS AW 1113, REVIEWED BY: SOURAV. EXAMINATION GENERAL EXAMINATION: GENERALNO ACUTE DISTRESS, WELL NOURISHED AND HYDRATED. PSYCHAPPROPRIATE MOOD AND AFFECT . LUNGS:CLEAR TO AUSCULTATION BILATERALLY, NO WHEEZES, RHONCHI, RALES. HEART:NO MURMURS, REGULAR RATE AND RHYTHM. BACK:POINT TENDER BILATERAL LOW BACK, SURROUNDING SKIN SHOWS NO ERYTHEMA, ECCHYMOSIS, INCREASED WARMTH, AND/OR SKIN ERUPTIONS NOTED. . ASSESSMENTS CHRONIC PRESCRIPTION OPIATE USE - Z79.891 (PRIMARY) MYALGIA, OTHER SITE - M79.18 TREATMENT CHRONIC PRESCRIPTION OPIATE USE REFILL TIZANIDINE HCL TABLET, 4 MG, 1 TABLET NEEDED, ORALLY, THREE TIMES A DAY, 30 DAYS, 90 TABLET, REFILLS 1 NOTES: BILATERAL LOW BACK TPI. CLINICAL NOTES: 44-YEAR-OLD FEMALE IN FOR CHRONIC PAIN FOLLOW-UP. GIVEN PRESENTING SYMPTOMS AND RESULTS OF PHYSICAL EXAMINATION RECOMMENDED TPI OF THE LOW BACK WITH POST PROCEDURAL FOLLOW-UP. PATIENT HAS EXPRESSED UNDERSTANDING OF AND WAS IN AGREEMENT WITH TREATMENT PLAN. GIVEN TIME TO ASK QUESTIONS AND EXPRESS CONCERNS., ISTOP REGISTRY REVIEWED AND DEMONSTRATES COMPLLIANCE. (REF #[id number] ) BRINGS IN MEDICATIONS WHICH IS APPROPRIATE FOR WHAT WAS DISPENSED. RECENT URINE TOXICOLOGY REVIEWED. NO UNAUTHORIZED MEDICATIONS. NO ILLICIT SUBSTANCES AND PRESCRIBED MEDICATIONS WERE PRESENT. PREVENTIVE MEDICINE PAIN CLINIC TEACHING: PROCEDURE TEACHING PRE TRIGGER POINT INJECTIONS INSTRUCTIONS REVIEWED WITH PT. VERBALIZED UNDERSTANDING.. PROCEDURE CODES FA211 ESTABILISHED PATIENT [facility] CHARGE DISPOSITION & COMMUNICATION FOLLOW UP POSTPROCEDURE (REASON: BILATERAL LOW BACK TPI) ELECTRONICALLY SIGNED BY LAKHWINDER DARBY ON 10/22/2019 AT 08:21 AM EST DISCLAIMER : THIS IS A VISIT SUMMARY EXTRACTED FROM THE [employer] CHART. IT IS NOT A COPY OF THE [employer] PROGRESS NOTE. YONI
== END ==
LOC: M PAIN 11:00
PROVIDERS: ATTEND Family Medicine
DX: M79.18 Myalgia, other site (principal); I10 Essential (primary) hypertension; Z86.59 Personal history of other mental and behavioral disorders; I25.2 Old myocardial infarction; Z98.84 Bariatric surgery status; K21.9 Gastro-esophageal reflux disease without esophagitis; Z96.651 Presence of right artificial knee joint; Z87.891 Personal history of nicotine dependence; Z88.0 Allergy status to penicillin; Z91.09 Other allergy status, other than to drugs and biological substances; Z79.899 Other long term (current) drug therapy

== ENCOUNTER 2019-11-24 14:59 | Observation (INO) | payer OTHER ==
[~2019-11-24] VITALS: Ht 170.2 cm; Wt 77.0 kg
[2019-11-24] MEDS ORDERED: CLON0.5T2 PO (15:13)
[2019-11-24] MEDS ORDERED: LEVOTAB10 PO (15:13)
[2019-11-24] MEDS ORDERED: TETANUS/DIPHTHERIA TOX ADSORB ADULT 0.5ML SYR/VIAL (90714) IM ONE ×2 (15:30→17:15)
[2019-11-24 16:13] LABS: BASO % 1.1 % (0.0-1.0); EOS # 0.1 10^3/uL (0.0-0.5); EOS % 2.1 % (0.0-3.0); HEMATOCRIT 38.1 % (36.0-47.0); HEMOGLOBIN 12.6 g/dl (12.0-15.5); LYMPH # 1.1 10^3/uL (1.5-5.0); LYMPH % 28.3 % (24.0-44.0); MEAN CORPUSCULAR HEMOGLOBIN 30.3 pg (27.0-33.0); MEAN CORPUSCULAR HGB CONC 33.1 g/dl (32.0-36.5); MEAN CORPUSCULAR VOLUME 91.6 fl (80.0-96.0); MONO # 0.3 10^3/uL (0.0-0.8); MONO % 7.1 % (0.0-5.0); NEUTROPHILS # 2.3 10^3/uL (1.5-8.5); NEUTROPHILS % 61.1 % (36.0-66.0); PLATELET COUNT, AUTOMATED 199 10^3/uL (150-450); RED BLOOD COUNT 4.16 10^6/uL (4.00-5.40); WHITE BLOOD COUNT 3.8 10^3/uL (4.0-10.0)
[2019-11-24] MEDS ORDERED: ACETAMINOPHEN TAB 650MG DOSE (2X325MG) PO ONE (16:30)
[2019-11-24] MEDS ORDERED: NS 1,000 ML IV ONE (16:30)
[2019-11-24 16:43] LABS: BLOOD UREA NITROGEN 11 MG/DL (7-18); CALCIUM LEVEL 8.4 MG/DL (8.5-10.1); CARBON DIOXIDE LEVEL 26 MEQ/L (21-32); CHLORIDE LEVEL 109 MEQ/L (98-107); CK-MB VALUE MASS 1.1 NG/ML (<3.6); CPK CREATINE PHOSPHOKINASE 120 U/L (26-192); CREATININE FOR GFR 0.74 MG/DL (0.55-1.30); ETHYL ALCOHOL (ETHANOL) < 0.003 % (0.000-0.010); FREE T4 0.89 NG/DL (0.76-1.46); GLOMERULAR FILTRATION RATE > 60.0 (>58); GLUCOSE, FASTING 80 MG/DL (70-100); MAGNESIUM LEVEL 1.8 MG/DL (1.8-2.4); MB/CK RELATIVE INDEX 0.92 (< OR =4); POTASSIUM SERUM 3.5 MEQ/L (3.5-5.1); SODIUM LEVEL 140 MEQ/L (136-145); TROPONIN I < 0.02 NG/ML (< 0.10)
[2019-11-24] MEDS ORDERED: ADACEL/BOOSTRIX VACCINE (DIPHTH/PERTUSS/ACELL/TETANUS)0.5ML SYR (90715) IM ONE (17:30)
--- NOTE | 2019-11-24 19:18 | HPEPDOC ---
[facility] Medical History & Physical Date of Admission Nov 24, 2019 Date of Service: Nov 24, 2019 Attending Physician: OLIVIA SORIANO MD History and Physical CHIEF COMPLAINT: Syncope HISTORY OF PRESENT ILLNESS: 44 y.o female w/ PMH of CAD, TN, HTN & HLD presents after a syncopal episode. Patient was walking with her daughter when she suddenly lost consciousness and woke up in the ambulance. She was apparently with her daughter who witnessed the event but isn't here to explain what happened. Patient has not met with her daughter since the episode either, as she woke up in the ambulance. She has supposedly had a seizure after giving many years ago, no seizure activity since then. She denies any pre/post syncopal symptoms. She injured her R eye/forehead as she fell after the syncopal episode. She reports pain at the site, has no other complaints at this time, resting comfortably in bed. She denies any SOB, CP, N/V/D or abdominal pain. 10 point review of system is negative except for above. PAST MEDICAL HISTORY: 1. CAD 2. TN 3. HTN 4. HLD PAST SURGICAL HISTORY: 1. Gastric bypass 2. Cholecystectomy SOCIAL HISTORY: Previous smoker social alcohol use smokes marijuana FAMILY HISTORY: positive for heart disease ALLERGIES: Please see below. HOME MEDICATIONS: Please see below. PHYSICAL EXAMINATION: VITAL SIGNS: See below GENERAL APPEARANCE: No distress HEENT: R forehead/eye socket bruising CARDIOVASCULAR: S1, S2, no murmurs LUNGS: Clear to auscultation ABDOMEN: Soft, non-tender, non-distended, +BS EXTREMITIES: ROM intact NEUROLOGICAL: No focal deficits PSYCHIATRIC: Calm LABORATORY DATA: See below. IMAGING: Head/neck imaging negative for acute pathology MICROBIOLOGY: Please see below. ASSESSMENT: 44 y.o female w/ multiple medical comorbidities presents with sync ope. . PLAN: 1. Syncope - ?seizure, ?related to medication vs cardiac disease, Cardiac workup negative, will hold Zipresidone, Tele monitoring, orthostatic negative, admit for observation overnight. 2. CAD - h/o TN, not on any aspirin/statin/BB in the outpatient. 3. HTN - continue Lisinopril & HCTZ DVT Prophylaxis - Heparin SubQ GI Prophylaxis - home PPI Vital Signs Vital Signs Date Time Temp Pulse Resp B/P (MAP) Pulse Ox O2 Delivery O2 Flow Rate FiO2 11/24/19 16:42 77 18 126/82 (97) 100 Room Air 11/24/19 15:22 97.4 Laboratory Data Labs 24H Laboratory Tests 2 11/24/19 15:51: Bedside Glucose (Misc Panel) 74 11/24/19 15:53: Immature Granulocyte % (Auto) 0.3, Neutrophils (%) (Auto) 61.1, Lymphocytes (%) (Auto) 28.3, Monocytes (%) (Auto) 7.1H, Eosinophils (%) (Auto) 2.1, Basophils (%) (Auto) 1.1H, Neutrophils # (Auto) 2.3, Lymphocytes # (Auto) 1.1L, Monocytes # (Auto) 0.3, Eosinophils # (Auto) 0.1, Basophils # (Auto) 0.0, Nucleated Red Blood Cells % (auto) 0.0, Anion Gap 5L, Glomerular Filtration Rate > 60.0, Calcium Level 8.4L, Magnesium Level 1.8, Total Creatine Kinase 120, Creatine Kinase MB 1.1, Creatine Kinase MB Relative Index 0.92, Troponin I < 0.02, Thyroid Stimulating Hormone (TSH) 1.360, Free Thyroxine 0.89, Ethyl Alcohol Level < 0.003 CBC/BMP Laboratory Tests 11/24/19 15:53 Home Medications Scheduled Amitriptyline HCl (Amitriptyline HCl) 50 Mg Tab, 50 MG PO QHS Clonazepam (Clonazepam) 0.5 Mg Tablet, 0.5 MG PO QHS Gabapentin (Gabapentin) 800 Mg Tab, 800 MG PO TID Hydrochlorothiazide (Hydrochlorothiazide) 25 Mg Tablet, 25 MG PO DAILY Levocetirizine Dihydrochloride (Levocetirizine Dihydrochloride) 5 Mg Tablet, 5 MG PO DAILY Lisinopril (Lisinopril) 5 Mg Tablet, 5 MG PO QHS Pantoprazole Sodium (Pantoprazole Sodium) 40 Mg Tab, 40 MG PO BID Prazosin Hcl (Prazosin HCl) 5 Mg Cap, 5 MG PO QHS Tizanidine HCl (Tizanidine HCl) 4 Mg Tab, 4 MG PO TID Ziprasidone HCl (Ziprasidone HCl) 60 Mg Cap, 60 MG PO BID Scheduled PRN Tramadol HCl (Tramadol HCl) 50 Mg Tablet, 50 MG PO QID PRN for PAIN Allergies Coded Allergies: Penicillins (Verified Allergy, Intermediate, rash, 06/12/19) TAPE (Verified Allergy, Intermediate, burn veliz, 06/12/19) A-FIB/CHADSVASC A-FIB History Current/History of A-Fib/PAF?: No OLIVIA SORIANO MD Nov 24, 2019 19:18
[2019-11-24] MEDS: traMADol 50 MG TAB PO PRN (19:31)
[2019-11-24] MEDS ORDERED: lisinopriL 5 MG TAB PO SCH (21:00)
[2019-11-24] MEDS ORDERED: PRAZOSIN 1 MG CAP PO SCH (21:00)
[2019-11-24] MEDS ORDERED: clonazePAM 0.5 MG TAB PO SCH (21:00)
[2019-11-24] MEDS ORDERED: AMITRIPTYLINE 50 MG TAB PO SCH (21:00)
[2019-11-24] MEDS: GABAPENTIN 400 MG CAP PO SCH (21:01)
[2019-11-24] MEDS: tiZANidine 4 MG TAB PO SCH (21:01)
[2019-11-24] MEDS: PANTOPRAZOLE 40MG TAB (PROTONIX) PO SCH (21:02)
[2019-11-24 21:03] VITALS: BP 128/74
[2019-11-24] MEDS: HEPARIN SOD (PORCINE) 5000 UNITS/ML VIAL (J1644 PER 1000UNITS) SC SCH (21:04)
[2019-11-25 04:45] VITALS: BP 114/74
[2019-11-25] MEDS: traMADol 50 MG TAB PO PRN ×2 (05:03→11:18)
[2019-11-25 05:35] LABS: HEMATOCRIT 33.9 % (36.0-47.0); HEMOGLOBIN 11.2 g/dl (12.0-15.5); MEAN CORPUSCULAR VOLUME 90.9 fl (80.0-96.0); PLATELET COUNT, AUTOMATED 173 10^3/uL (150-450); RED BLOOD COUNT 3.73 10^6/uL (4.00-5.40); WHITE BLOOD COUNT 3.4 10^3/uL (4.0-10.0)
[2019-11-25 05:49] LABS: AMPHETAMINES LEVEL URINE NEGATIVE (NEGATIVE); BARBITURATES URINE NEGATIVE (NEGATIVE); BENZODIAZEPINES URINE NEGATIVE (NEGATIVE); CANNABINOIDS URINE POSITIVE (NEGATIVE); COCAINE METABOLITE URINE NEGATIVE (NEGATIVE); METHADONE URINE NEGATIVE (NEGATIVE); OPIATES URINE NEGATIVE (NEGATIVE); PHENCYCLIDINE URINE NEGATIVE (NEGATIVE)
[2019-11-25 06:09] LABS: ALBUMIN 2.8 GM/DL (3.2-5.2); ALT/SGPT 15 U/L (12-78); BILIRUBIN,TOTAL 0.6 MG/DL (0.2-1.0); BLOOD UREA NITROGEN 9 MG/DL (7-18); CARBON DIOXIDE LEVEL 26 MEQ/L (21-32); CHLORIDE LEVEL 111 MEQ/L (98-107); CREATININE FOR GFR 0.71 MG/DL (0.55-1.30); GLOMERULAR FILTRATION RATE > 60.0 (>58); GLUCOSE, FASTING 73 MG/DL (70-100); POTASSIUM SERUM 3.8 MEQ/L (3.5-5.1); SODIUM LEVEL 143 MEQ/L (136-145); TOTAL PROTEIN 5.1 GM/DL (6.4-8.2)
--- NOTE | 2019-11-25 07:43 | ECGEPIP ---
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
[2019-11-25 08:00] VITALS: BP 117/66
[2019-11-25] MEDS ORDERED: NS 1,000 ML IV SCH (08:00)
[2019-11-25] MEDS: HEPARIN SOD (PORCINE) 5000 UNITS/ML VIAL (J1644 PER 1000UNITS) SC SCH (08:17)
[2019-11-25] MEDS: tiZANidine 4 MG TAB PO SCH (08:17)
[2019-11-25] MEDS: GABAPENTIN 400 MG CAP PO SCH (08:17)
[2019-11-25] MEDS: PANTOPRAZOLE 40MG TAB (PROTONIX) PO SCH (08:17)
--- NOTE | 2019-11-25 08:23 | REP ---
REASON: Syncope. COMPARISON: 06/14/2018, the latest prior. TECHNIQUE: 4.5 mm contiguous transaxial sections were obtained from the skull base to the cerebral convexities with thin cuts through the posterior fossa without the administration of intravenous contrast. FINDINGS: The ventricles and sulci are consistent with the patient's age. There are no extra-axial fluid collections. There is no mass effect. The deep cerebral white matter is consistent with the patient's age. The orbital and petrous structures , cerebellopontine angles, and posterior fossa are unremarkable. The sella turcica, cavernous, and paracavernous structures are essentially unremarkable. The visualized portions of the paranasal sinuses and mastoid air cells are clear. Images of the skull base show no gross abnormality. IMPRESSION: Essentially unremarkable CT examination of the brain. There has been on significant change compared to the prior exam. Electronically Signed by Brett Rubi DO 11/25/2019 01:30 P
--- NOTE | 2019-11-25 08:25 | REP ---
REASON: Syncopal episode. COMPARISON: None. Vertebral body height and alignment is within normal limits. The disc spaces are symmetric and well maintained. The facet joints are well aligned bilaterally. There is no cervical spine fracture. The imaged lung cooley show right upper lobe ground glass opacities. IMPRESSION: 1. There is no cervical spine fracture. 2. The imaged lung cooley show ground glass opacities. Plain radiographic evaluation of the chest should be considered if clinically relevant. Electronically Signed by Brett Rubi DO 11/25/2019 01:31 P
--- NOTE | 2019-11-25 08:25 | REP ---
REASON: Trauma, assess for fracture. PRIORS: None. There is no maxillofacial fracture. The imaged paranasal sinuses and mastoid air cells are clear. The ostiomeatal complex is patent. The cribriform plate and millicent maggy are intact. IMPRESSION: Findings are within normal limits. Electronically Signed by Brett Rubi DO 11/25/2019 01:31 P
--- NOTE | 2019-11-25 08:30 | REP ---
REASON: Syncopal episode. COMPARISON: 05/28/2019. FINDINGS: The technique utilized in obtaining the radiograph has magnified the cardiac silhouette and accentuated the interstitial markings. The superior mediastinal structures are midline. The cardiac silhouette is unremarkable in size, shape, and position. The diaphragmatic surfaces of the lungs are regular, and the costophrenic angles are clear. The pulmonary cooley are clear. The imaged osseous structures are intact. IMPRESSION: There is no acute cardiopulmonary disease. Electronically Signed by Brett Rubi DO 11/25/2019 01:31 P
[2019-11-25] MEDS ORDERED: hydroCHLOROthiazide 25 MG TAB PO SCH (09:00)
[2019-11-25 10:00] VITALS: BP 111/73
[2019-11-25 10:04] VITALS: BP 108/69
[2019-11-25 10:08] VITALS: BP 108/67
[2019-11-25 10:46] LABS: CORTISOL AM 9.7 UG/DL (4.3-22.4)
--- NOTE | 2019-11-25 11:52 | DS.PDOC ---
Discharge Summary General Date of Admission Nov 24, 2019 at 15:00 Date of Discharge 11/25/19 Attending Physician: OLIVIA SORIANO MD Discharge Summary PROCEDURES PERFORMED DURING STAY: None ADMITTING DIAGNOSES: 1. Syncope, hypotension DISCHARGE DIAGNOSES: 1. Syncope, hypotension COMPLICATIONS/CHIEF COMPLAINT: CAD. HISTORY OF PRESENT ILLNESS: 44-year-old female with past medical history of coronary artery disease, hypertension, hyperlipidemia, was admitted for syncope. Patient reports a prior history of orthostatic hypotension, had low/low normal blood pressure throughout hospitalization. Patient's antihypertensives were held and blood pressure remained within normal limits. Patient was negative for orthostatic hypotension today, evaluated and cleared by physical therapy for discharge home. Patient will be discharged without any antihypertensive medication at this time, is strongly encouraged to follow-up with her primary care physician in one to 2 weeks for blood pressure check and management as needed. Patient is clinically hemodynamically stable for discharge at this time. HOSPITAL COURSE: As above. DISCHARGE MEDICATIONS: Please see below. ALLERGIES: Please see below. PHYSICAL EXAMINATION: VITAL SIGNS: See below GENERAL APPEARANCE: No distress HEENT: R forehead/eye socket bruising CARDIOVASCULAR: S1, S2, no murmurs LUNGS: Clear to auscultation ABDOMEN: Soft, non-tender, non-distended, +BS EXTREMITIES: ROM intact NEUROLOGICAL: No focal deficits PSYCHIATRIC: Calm LABORATORY DATA: Please see below. IMAGING: CT head and neck negative for acute pathology PROGNOSIS: Fair ACTIVITY: As tolerated. DIET: Cardiac DISCHARGE PLAN: Follow with PCP in 1-2 weeks DISPOSITION: Home. DISCHARGE INSTRUCTIONS: 1. As above. DISCHARGE CONDITION: Stable. TIME SPENT ON DISCHARGE: Greater than 23 minutes. Vital Signs/I&Os Vital Signs Date Time Temp Pulse Resp B/P (MAP) Pulse Ox O2 Delivery O2 Flow Rate FiO2 11/25/19 11:18 18 Room Air 11/25/19 10:08 77 108/67 (81) 11/25/19 08:00 98.6 98 I&O- Last 24 Hours up to 6 AM 11/25/19 06:00 Intake Total 1120 ml Output Total 400 ml Balance 720 ml Laboratory Data Labs 24H Laboratory Tests 2 11/24/19 15:51: Bedside Glucose (Misc Panel) 74 11/24/19 15:53: Immature Granulocyte % (Auto) 0.3, Neutrophils (%) (Auto) 61.1, Lymphocytes (%) (Auto) 28.3, Monocytes (%) (Auto) 7.1H, Eosinophils (%) (Auto) 2.1, Basophils (%) (Auto) 1.1H, Neutrophils # (Auto) 2.3, Lymphocytes # (Auto) 1.1L, Monocytes # (Auto) 0.3, Eosinophils # (Auto) 0.1, Basophils # (Auto) 0.0, Nucleated Red Blood Cells % (auto) 0.0, Anion Gap 5L, Glomerular Filtration Rate > 60.0, Calcium Level 8.4L, Magnesium Level 1.8, Total Creatine Kinase 120, Creatine Ki nase MB 1.1, Creatine Kinase MB Relative Index 0.92, Troponin I < 0.02, Thyroid Stimulating Hormone (TSH) 1.360, Free Thyroxine 0.89, Ethyl Alcohol Level < 0.003 11/25/19 04:53: Nucleated Red Blood Cells % (auto) 0.0, Anion Gap 6L, Glomerular Filtration Rate > 60.0, Calcium Level 8.0L, Magnesium Level 2.0, Total Bilirubin 0.6, Aspartate Amino Transf (AST/SGOT) 8, Alanine Aminotransferase (ALT/SGPT) 15, Alkaline Phosphatase 57, Total Protein 5.1L, Albumin 2.8L, Albumin/Globulin Ratio 1.22, Cortisol AM Sample 9.7 11/25/19 05:05: Urine Opiates Screen NEGATIVE, Urine Methadone Screen NEGATIVE, Urine Barbiturates Screen NEGATIVE, Urine Phencyclidine Screen NEGATIVE, Urine Amphetamines Screen NEGATIVE, Urine Benzodiazepines Screen NEGATIVE, Urine Cocaine Metabolite Screen NEGATIVE, Urine Cannabinoids Screen POSITIVEH CBC/BMP Laboratory Tests 11/24/19 15:53 11/25/19 04:53 FSBS Laboratory Tests Test 11/24/19 15:51 Range/Units Bedside Glucose (Misc Panel) 74 70-105 MG/DL Discharge Medications Scheduled Amitriptyline HCl (Amitriptyline HCl) 50 Mg Tab, 50 MG PO QHS, (Reported) Clonazepam (Clonazepam) 0.5 Mg Tablet, 0.5 MG PO QHS, (Reported) Gabapentin (Gabapentin) 800 Mg Tab, 800 MG PO TID, (Reported) Levocetirizine Dihydrochloride (Levocetirizine Dihydrochloride) 5 Mg Tablet, 5 MG PO DAILY, (Reported) Pantoprazole Sodium (Pantoprazole Sodium) 40 Mg Tab, 40 MG PO BID, (Reported) Tizanidine HCl (Tizanidine HCl) 4 Mg Tab, 4 MG PO TID, (Reported) Ziprasidone HCl (Ziprasidone HCl) 60 Mg Cap, 60 MG PO BID, (Reported) Scheduled PRN Tramadol HCl (Tramadol HCl) 50 Mg Tablet, 50 MG PO QID PRN for PAIN, (Reported) Allergies Coded Allergies: Penicillins (Verified Allergy, Intermediate, rash, 06/12/19) TAPE (Verified Allergy, Intermediate, burn veliz, 06/12/19) OLIVIA SORIANO MD Nov 25, 2019 11:52
--- NOTE | 2019-11-25 18:47 | ECHO ---
DATE OF PROCEDURE: 11/25/2019 REFERRING PHYSICIAN: Dr. Cristobal INDICATION: Syncope. Height 170 cm, weight 78 kg. DIMENSIONS: IVS: 0.8 LV: 4.8 LVPW: 0.7 LA: 3.2 Aorta: 3.1 RV: 2.9 Left atrial volume index: 30 Mitral E wave velocity: 95 A wave: 41 E prime septal: 11.2 E prime lateral: 15.1 FINDINGS: The study is of acceptable technical quality. The patient is in sinus rhythm. Normal LV size with normal LV systolic function. Estimated left ventricular ejection fraction (LVEF) 60-65%. Right ventricle also appears normal. Left atrium is mildly enlarged. Right atrium is normal. Aortic, mitral and tricuspid valves were reasonably well seen and all appear normal. Pulmonic valve was not well visualized. No pericardial effusion is noted. Inferior vena cava is normal size. Aortic root appears normal. Aortic arch and abdominal aorta were not well seen. Doppler interrogation reveals no significant valvular disease. Mitral inflow pattern and tissue Doppler imaging of mitral annulus revealed normal diastolic function. CONCLUSIONS: 1. Study is of acceptable technical quality, the patient is in sinus rhythm. 2. Normal LV size with preserved LV systolic and diastolic function. 3. No hemodynamically significant valvular disease. 4. Likely normal central venous pressure, normal pulmonary artery pressure. COMMENT: Subacute bacterial endocarditis (SBE) prophylaxis is not recommended. Study does not provide obvious explanation for syncopal event.
== END 2019-11-25 13:07 | disposition home or self-care (01) ==
LOC: M ED 14:59 → M ED INP 15:00 → ENRESERVTM 11-25 03:59 → ENRESERVDT 11-25 03:59 → M PCU 11-25 04:42
PROVIDERS: ADMIT Internal Medicine; ATTEND Internal Medicine
DX: R55 Syncope and collapse (principal); I95.9 Hypotension, unspecified; I25.10 Atherosclerotic heart disease of native coronary artery without angina pectoris; I10 Essential (primary) hypertension; E78.49 Other hyperlipidemia; I25.2 Old myocardial infarction; Z79.899 Other long term (current) drug therapy; Z88.0 Allergy status to penicillin; Z98.84 Bariatric surgery status; Z87.891 Personal history of nicotine dependence; F12.10 Cannabis abuse, uncomplicated
CPT/HCPCS: 36415; 70450; 70486; 71045; 72125; 80048; 80053; 80307; 82533; 82550; 82553; 83735; 84439; 84443; 85025; 85027; 90471; 90715; 93005; 93041; 93306; 94760; 96360; 96361; 96372; 97161; 99285; G0480; J1644

== ENCOUNTER 2020-01-07 13:00 | Outpatient (RCR) | payer OTHER ==
[~2020-01-07 13:00] MED LIST changes: +CLON0.5T2 PO; +LEVOTAB10 PO
== END 2020-01-09 ==
LOC: M PT 13:00
PROVIDERS: ATTEND Family Medicine
DX: M96.1 Postlaminectomy syndrome, not elsewhere classified (principal)

== ENCOUNTER → 2020-01-15 | Outpatient (REF) | payer OTHER ==
[2020-01-15 14:03] LABS: BLOOD UREA NITROGEN 8 MG/DL (7-18); CALCIUM LEVEL 8.7 MG/DL (8.5-10.1); CARBON DIOXIDE LEVEL 28 MEQ/L (21-32); CHLORIDE LEVEL 106 MEQ/L (98-107); CREATININE FOR GFR 0.74 MG/DL (0.55-1.30); GLOMERULAR FILTRATION RATE > 60.0 (>58); GLUCOSE, FASTING 83 MG/DL (70-100); POTASSIUM SERUM 3.6 MEQ/L (3.5-5.1); SODIUM LEVEL 140 MEQ/L (136-145)
[2020-01-16 14:14] LABS: C-PEPTIDE 1.9 ng/mL (1.1-4.4); INSULIN LEVEL 4.3 uIU/mL (2.6-24.9)
== END ==
LOC: M SFHCPLAZ 10:17
PROVIDERS: ATTEND Family Medicine
DX: E16.2 Hypoglycemia, unspecified (principal)

== ENCOUNTER 2020-01-16 15:12 | Outpatient (RCR) | payer OTHER | END 2020-02-09 | LOC: M PT 15:12 | PROVIDERS: ATTEND Family Medicine | DX: Z51.89 Encounter for other specified aftercare (principal); M96.1 Postlaminectomy syndrome, not elsewhere classified ==

== ENCOUNTER → 2020-02-09 | Outpatient (CLI) | payer OTHER ==
[~2020-02-09] MED LIST changes: +ASPI81CH33 PO; +COLA100C5 PO; +PERCOCET PO
== END ==
LOC: M LABSMTC 10:15
PROVIDERS: ATTEND Anesthesiology
DX: Z01.818 Encounter for other preprocedural examination (principal); Z11.59 Encounter for screening for other viral diseases
CPT/HCPCS: C9803; U0003

== ENCOUNTER 2020-02-12 06:09 | Day surgery (SDC) | payer OTHER ==
[~2020-02-12] VITALS: Ht 170.2 cm; Wt 80.3 kg
[2020-02-12] VITALS (7 sets, daily range): BP systolic 82–128; BP diastolic 73–82
[~2020-02-12 06:09] MED LIST changes: -ASPI81CH33 PO; -COLA100C5 PO; +LIDOCAINE 1% MDV 20ML VIAL SQ PRN; +LR 1,000 ML IV ONE; -PERCOCET PO; +ceFAZolin SOD 2 GM in IV 1 EA IV ONE
[2020-02-12 06:27] LABS: HEMATOCRIT 38.9 % (36.0-47.0); HEMOGLOBIN 13.3 g/dl (12.0-15.5); MEAN CORPUSCULAR HEMOGLOBIN 30.4 pg (27.0-33.0); MEAN CORPUSCULAR HGB CONC 34.2 g/dl (32.0-36.5); PLATELET COUNT, AUTOMATED 160 10^3/uL (150-450); RED BLOOD COUNT 4.37 10^6/uL (4.00-5.40); WHITE BLOOD COUNT 3.8 10^3/uL (4.0-10.0)
[2020-02-12] MEDS ORDERED: ASPI81CH33 PO (06:54)
[2020-02-12] MEDS ORDERED: MIDAZOLAM INJ 2MG/2ML VIAL (J2250 PER 1MG) As Ordered ONE (07:11)
[2020-02-12] MEDS ORDERED: fentaNYL 250 MCG/5 ML INJECTION (J3010) As Ordered ONE (07:11)
[2020-02-12] MEDS ORDERED: ONDANSETRON 4MG/2ML VIAL As Ordered ONE (07:12)
[2020-02-12] MEDS ORDERED: LIDOCAINE 2% 100MG/5ML SDV (FOR ANES.) As Ordered ONE (07:12)
[2020-02-12] MEDS ORDERED: dexameTHASONE 4 MG/ML 1ML VIAL (J1100 PER 1MG) As Ordered ONE (07:12)
[2020-02-12] MEDS ORDERED: propofoL 200 MG/20 ML VIAL As Ordered ONE (07:12)
[2020-02-12] MEDS ORDERED: ROCURONIUM BROMIDE 50 MG/5 ML VIAL As Ordered ONE ×2 (07:12→08:26)
[2020-02-12] MEDS ORDERED: BUPIVACAINE HCL 0.25% 30ML VIAL As Ordered ONE (07:15)
[2020-02-12] MEDS ORDERED: METHYLENE BLUE 0.5% (5MG/ML) 10 ML AMP (PROVAYBLUE)(Q9968 PER 1MG) As Ordered ONE (07:16)
[2020-02-12] MEDS ORDERED: ACETAMINOPHEN 1000MG 100ML IV BTL (OFIRMEV) (J0131 PER 10MG) As Ordered ONE (08:09)
[2020-02-12] MEDS ORDERED: GLYCOPYRROLATE INJ 0.2 MG/ML 2 ML VIAL As Ordered ONE (08:32)
[2020-02-12] MEDS ORDERED: KETOROLAC 60 MG/2 ML VIAL As Ordered ONE (08:38)
[2020-02-12] MEDS ORDERED: SUGAMMADEX SODIUM 500 MG/5 ML VIAL (BRIDION) As Ordered ONE (08:39)
[2020-02-12] MEDS ORDERED: LR 1,000 ML IV SCH ×2 (09:45→10:00)
[2020-02-12] MEDS ORDERED: ONDANSETRON 4MG/2ML VIAL IV PRN ×2 (09:45→10:00)
[2020-02-12] MEDS ORDERED: fentaNYL 100 MCG/2 ML INJECTION (J3010) IV PRN (09:45)
[2020-02-12] MEDS: oxyCODONE 5MG TAB PO PRN ×2 (09:50→10:20)
[2020-02-12] MEDS ORDERED: diphenhydrAMINE 50MG/ML VIAL (J1200) IV PRN (10:00)
[2020-02-12] MEDS ORDERED: PROMETHAZINE INJ 25 MG/ML VIAL (J2550) IV PRN (10:00)
[2020-02-12] MEDS ORDERED: MORPHINE 4 MG/ML 1ML VIAL/SYRINGE (J2270) IV PRN (10:00)
[2020-02-12] MEDS: HYDROMORPHONE HCL 0.5 MG/ 0.5 ML SYRINGE (J1170 PER 1) IV PRN ×2 (10:15→10:20)
[2020-02-12] MEDS ORDERED: PERCOCET 5MG/325MG TAB PO PRN ×2 (10:45)
[2020-02-12] MEDS ORDERED: PERCOCET PO (16:28)
[2020-02-12] MEDS ORDERED: COLA100C5 PO (16:29)
== END 2020-02-12 18:45 | disposition home or self-care (01) ==
LOC: M SDC 06:09 → M MSPAV 11:12 → M SDC 18:45
PROVIDERS: ATTEND Obstetrics & Gynecology
DX: N92.0 Excessive and frequent menstruation with regular cycle (principal); N88.8 Other specified noninflammatory disorders of cervix uteri; I25.2 Old myocardial infarction; E78.00 Pure hypercholesterolemia, unspecified; E78.49 Other hyperlipidemia; K21.9 Gastro-esophageal reflux disease without esophagitis; Z98.84 Bariatric surgery status; F43.10 Post-traumatic stress disorder, unspecified; F31.9 Bipolar disorder, unspecified; F32.9 Major depressive disorder, single episode, unspecified; F41.9 Anxiety disorder, unspecified; G47.30 Sleep apnea, unspecified; Z79.899 Other long term (current) drug therapy; Z79.82 Long term (current) use of aspirin; Z88.0 Allergy status to penicillin
CPT/HCPCS: 36415; 58571; 81025; 85027; 86850; 86900; 86901; 88307; 96360; 96361; J0131; J0690; J1100; J1170; J1885; J2250; J2405; J3010; Q9968

== ENCOUNTER → 2020-02-27 | Outpatient (CLI) | payer OTHER ==
[~2020-02-27] MED LIST changes: +ASPI81CH33 PO; +COLA100C5 PO; -LIDOCAINE 1% MDV 20ML VIAL SQ PRN; -LR 1,000 ML IV ONE; +PERCOCET PO; -ceFAZolin SOD 2 GM in IV 1 EA IV ONE
--- NOTE | 2020-03-02 23:51 | ECWPNPC ---
PATIENT NAME: DULCE CHOWDHURY : 1975 GENDER: FEMALE VISIT DATE: 02/27/2020 DISCHARGE DATE: 02/27/20 1157 VISIT LOCKED DATE TIME: PHYSICIAN: JIMBO VARGAS RESOURCE: JIMBO VARGAS REASON FOR APPOINTMENT 1. PAIN IN LOWER BACK HISTORY OF PRESENT ILLNESS GENERAL: - 44-YEAR-OLD FEMALE IN FOR CHRONIC PAIN FOLLOW-UP. SHE RATES HER PAIN CURRENTLY AT A 5 OUT OF 10 AND DESCRIBES IT BURNING, ACHING, AND STABBING. PATIENT FEELS HER MEDICATIONS ARE WORKING WELL AND DENIES MED SIDE EFFECTS AT THIS TIME. SHE DOES ADMIT TO COMPLETING 6 WEEKS OF PHYSICAL THERAPY. FALL RISK SCREENING: SCREENING :NO FALLS REPORTED IN THE LAST YEAR PAIN SCREENING: PATIENT HAS A COMPLAINT OF ACUTE OR CHRONIC PAIN :YES LOCATION OF PAIN:LOW BACK INTENSITY OF PAIN (SCALE OF 1 TO 10):5 WHAT DOES YOUR PAIN FEEL LIKE:SHARP, STABBING DURATION:CONTINOUS, CONSTANT, ALL DAY PAIN IS INCREASED BY:ACTIVITIES, PROLONGED STANDING PAIN IS DECREASED BY:USE OF PAIN MEDICATIONS PT EXERCISES PAIN HAS INTERFERED WITH THE FOLLOWING:MOOD, HOUSEWORK, RELATIONSHIP WITH OTHERS, ENJOYMENT OF LIFE PLAN/GOALS/TREATMENT/INTERVENTION/FOLLOW UP:SEE PLAN NURSING NOTE: -. PAIN CENTER INTAKE QUESTIONS: DO YOU HAVE A HISTORY OF MRSA? :NO DO YOU TAKE A BLOOD THINNERS? :NO DO YOU HAVE ANY BLEEDING DISORDERS? :NO ANY NEW NUMBNESS OR WEAKNESS IN YOUR LEGS OR ARMS? :NO ANY PACEMAKER,DEFIBRILLATOR, OR DORSAL COLUMN STIMULATOR? :NO DO YOU HAVE ANY RASHES OR OPEN SORES? :NO ARE YOU ALLERGIC TO IV DYE? :NO ARE YOU DIABETIC? :NO ANY NEW PROBLEMS WITH YOUR MEDICATIONS? :NO HAVE YOU RECEIVED A VACCINE IN THE PAST 30 DAYS? :NO DO YOU PLAN TO RECEIVE A VACCINE IN THE NEXT 21 DAYS? :NO DO YOU NEED ANY PRESCRIPTION? :NO DO YOU TAKE ANY IMMUNOSUPPRESSIVE MEDICATIONS? :NO IS THERE A CHANCE YOU COULD BE ? :NO ARE YOU BREAST FEEDING? :NO CURRENT MEDICATIONS TAKING KLONOPIN 0.5 MG TABLET 1 TABLET AT BEDTIME ORALLY ONCE A DAY, MDD=1 TAKING LEVOCETIRIZINE DIHYDROCHLORIDE 5 MG TABLET 1 TABLET IN THE EVENING ORALLY ONCE A DAY TAKING PANTOPRAZOLE SODIUM 40 MG TABLET DELAYED RELEASE 1 TABLET ORALLY TWICE DAILY TAKING ZIPRASIDONE HCL 60 MG CAPSULE 1 CAPSULE WITH FOOD ORALLY TWICE A DAY TAKING AMITRIPTYLINE HCL 50 MG TABLET 1 TABLET ORALLY ONCE A DAY TAKING VITAMIN D (ERGOCALCIFEROL) 95445 UNIT CAPSULE 1 CAPSULE ORALLY WEEKLY, NOTES: PT STATES HASN'T HAD IN A FEW MONTHS 11/26/19 TAKING VOLTAREN 1 % GEL DIRECTED TRANSDERMAL DAILY, NOTES: NOT LATELY TAKING TIZANIDINE HCL 4 MG TABLET 1 TABLET NEEDED ORALLY THREE TIMES A DAY TAKING ONE TOUCH/ONE TOUCH II STARTER - KIT DX;E11.9 IN VITRO FOUR TIMES DAILY TAKING MAY HAVE - - FREE STYLE LITE TEST STRIPS DIRECTED FOUR TIMES DAILY (E11.9) TAKING GABAPENTIN 800 MG TABLET 1 TABLET ORALLY THREE TIMES DAILY TAKING ASPIRIN 81 MG TABLET CHEWABLE 1 TABLET ORALLY ONCE A DAY TAKING TRAMADOL HCL 50 MG TABLET 1 TABLET NEEDED ORALLY EVERY 6 HRS PRN PAIN MDD=4 MEDICATION LIST REVIEWED AND RECONCILED WITH THE PATIENT PAST MEDICAL HISTORY HTN HIGH CHOLESTEROL AND TRIGLYSORIDES ANXIETY, DEPRESSION AND PTSD BIPOLAR DEPRESSION IN HX MT GASTRIC BYPASS LOW BACK PAIN GERD GASTROPARESIS ARTHRITIS HIATAL HERNIA RECTOCELE ABNORMAL UTERINE BLEEDING NSTEMI ALLERGIES TAPE: RASH - ALLERGY PENICILLIN (FOR ALLERGIES USE ONLY): RASH - ALLERGY SURGICAL HISTORY D&C 2000 CHOLECYSTECTOMY 2001 HERNIA REPAIR X2 BACK DISCECTOMY LUMBAR REGION 2017 GASTRIC BYPASS 10/06/172017 RIGHT KNEE ARTHROSCOPY 2007 CARDIAC CATHETERIZATION 06/2018 RIGHT KNEE REPLACEMENT 06/2019 EGD 07/2010 JUSTUS, EMMA, CYSTOSCOPY 02/12/20 FAMILY HISTORY FATHER: , DIAGNOSED WITH UNSPECIFIED HEART DISEASE, UNSPECIFIED CEREBRAL ARTERY OCCLUSION WITH CEREBRAL INFARCTION MOTHER: , DIABETES, UNSPECIFIED HEART DISEASE, OTHER MALIGNANT NEOPLASM OF UNSPECIFIED SITE 6 BROTHER(S) , 3 SISTER(S) - HEALTHY. 3DAUGHTER(S) - HEALTHY. SOCIAL HISTORY GENERAL: TOBACCO USE ARE YOU A:FORMER SMOKER HOW LONG HAS IT BEEN SINCE YOU LAST SMOKED?1-5 YEARS LATEX QUESTIONNAIRE LATEX ALLERGY : HAVE YOU EVER DEVELOPED ANY TYPE OF REACTION AFTER HANDLING LATEX PRODUCTS SUCH RUBBER GLOVES, CONDOMS, DIAPHRAGMS, BALLOONS, SOCKS, OR UNDERWEAR?NO REACTION TO TAPE IF ON TOO LONG LATEX ALLERGY : HAVE YOU EVER DEVELOPED ANY TYPE OF REACTION DURING OR AFTER DENTAL APPOINTMENT, VAGINAL/RECTAL EXAMINATION, SURGICAL PROCEDURE, OR ANY OTHER EXPOSURE?NO LATEX RISK : HAVE YOU EVER HAD ANY DIFFICULTY BREATHING OR HIVES AFTER EATING OR HANDLING ANY FRUITS, OR VEGETABLES; SUCH KIWI, BANANAS, STONE FRUITS, OR CHESTNUTSNO LATEX RISK : DO YOU HAVE A PREVIOUS PERSONAL HISTORY OF MORE THAN NINE SURGERIES, SPINA BIFIDA, OR REPEATED CATHERIZATIONS? NO LATEX RISK : ARE YOU FREQUENTLY EXPOSED TO LATEX PRODUCTS IN YOUR OCCUPATION?NO DATE ASKED : 02/27/2020 ALCOHOL SCREENING DID YOU HAVE A DRINK CONTAINING ALCOHOL IN THE PAST YEAR?NO POINTS0 INTERPRETATIONNEGATIVE RECREATIONAL DRUG USE DRUG USE?YES HOW OFTEN AND HOW MUCH? 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 MARITAL STATUS: . OTHERS AT HOME: 3 DGTRS AND BOYFRIEND AND CAT. PAIN CLINIC PFS, CLERGY, PUBLIC HEALTH REFERRALS PFS REFERRAL NEEDED?NO CLERGY REFERRAL NEEDED?NO PUBLIC HEALTH REFERRAL NEEDED?NO WAS THE PROVIDER NOTIFIED OF ANY PERTINENT INFO?YES N/A HAS THE PATIENT BEEN EDUCATED REGARDING HIS/HER PLAN OF CARE?YES HAS THE PATIENT BEEN EDUCATED REGARDING PAIN, THE RISK FOR PAIN, THE IMPORTANCE OF EFFECTIVE PAIN MANAGEMENT, AND THE PAIN ASSESSMENT PROCESS?YES ADVANCE DIRECTIVE ADVANCE DIRECTIVE DISCUSSED WITH PATIENT:YES PT DOES NOT HAVE ANY ADVANCED DIRECTIVES AND SHE DECLINES INFORMATION ON HCP AT THIS TIME. HOSPITALIZATION/MAJOR DIAGNOSTIC PROCEDURE SURGERY RELATED IN PT MENTAL HEALTH 2000 CHEST PAIN 03/07/2018 MT 06/2018 REVIEW OF SYSTEMS CONSTITUTIONAL: ANY RECENT FEVER NO . CHILLS NO . WEIGHT CHANGE OF UNKNOWN REASONS NO . GASTROENTEROLOGY: NEW UNEXPLAINABLE CHANGES IN BOWEL CONTROL NO . CONSTIPATION NO . GENITOURINARY: ANY NEW CHANGE IN BLADDER CONTROL? NO . NEUROLOGY: NEW ONSET DIZZINESS OR NEUROLOGICAL CHANGES NOT MENTIONED NO . NEW NUMBNESS OR PAIN PATTERNS NOT MENTIONED AND PERTINENT TO TODAY'S VISIT NO . CARDIOLOGY: NEW CHEST PRESSURE NO . NEW CHEST PAIN NO . RESPIRATORY: UNEXPLAINABLE COUGH NO . NEW SHORTNESS OF BREATH NO . VITAL SIGNS WT 175.2 LBS, HT 67 IN, BMI 27.44 INDEX, BP 124/69 MM HG, HR 73 /MIN, RR 18 /MIN, TEMP 97.8 F, OXYGEN SAT % 96%, SAFE IN ENV? (Y/N) YES, NA INITIALS AW 1133NANA ASUMADU CAN PILER. EXAMINATION GENERAL EXAMINATION: GENERALNO ACUTE DISTRESS, WELL NOURISHED AND HYDRATED. PSYCHAPPROPRIATE MOOD AND AFFECT . LUNGS:CLEAR TO AUSCULTATION BILATERALLY, NO WHEEZES, RHONCHI, RALES. HEART:NO MURMURS, REGULAR RATE AND RHYTHM. BACK: POINT TENDER RIGHT LOW BACK, SURROUNDING SKIN SHOWS NO ERYTHEMA, ECCHYMOSIS, INCREASED WARMTH, AND/OR SKIN ERUPTIONS. BANDS OF RESTICTIVE TISSUE NOTED OVER TRIGGER POINTS.. ASSESSMENTS MYALGIA, OTHER SITE - M79.18 (PRIMARY) TREATMENT MYALGIA, OTHER SITE NOTES: TPI RIGHT LOW BACK. CLINICAL NOTES: 44-YEAR-OLD FEMALE IN FOR CHRONIC PAIN FOLLOW-UP. GIVEN PRESENTING SYMPTOMS AND RESULTS OF PHYSICAL EXAMINATION RECOMMENDED TRIGGER POINT INJECTIONS OF THE RIGHT LOW BACK WITH POST PROCEDURAL FOLLOW-UP. DISCUSSED MARIJUANA ON PATIENT'S RECENT U TOX AND INFORMED PATIENT THAT SHE HAS TO CHOOSE BETWEEN USE OF OPIATE THERAPY AND USE OF MARIJUANA. PATIENT HAS EXPRESSED UNDERSTANDING OF AND WAS IN AGREEMENT WITH TREATMENT PLAN. GIVEN TIME TO ASK QUESTIONS AND EXPRESS CONCERNS. , ISTOP REGISTRY REVIEWED AND DEMONSTRATES COMPLLIANCE. (REF # [id number] ) BRINGS IN MEDICATIONS WHICH IS APPROPRIATE FOR WHAT WAS DISPENSED. RECENT URINE TOXICOLOGY REVIEWED. NO UNAUTHORIZED MEDICATIONS. NO ILLICIT SUBSTANCES AND PRESCRIBED MEDICATIONS WERE PRESENT. OTHERS NOTES: TRIGGER POINT INJECTION MATERIAL WAS PRINTED. PROCEDURE CODES FA211 ESTABILISHED PATIENT [facility] CHARGE DISPOSITION & COMMUNICATION FOLLOW UP POSTPROCEDURE (REASON: TPI OF RIGHT LOW BACK) ELECTRONICALLY SIGNED BY LAKHWINDER DARBY ON 03/02/2020 AT 08:33 AM EDT DISCLAIMER : THIS IS A VISIT SUMMARY EXTRACTED FROM THE Style on Screen CHART. IT IS NOT A COPY OF THE Style on Screen PROGRESS NOTE. YONI
== END ==
LOC: M PAIN 11:30
PROVIDERS: ATTEND Family Medicine
DX: M79.18 Myalgia, other site (principal)

== ENCOUNTER → 2020-03-16 | Outpatient (CLI) | payer OTHER | LOC: M LABSMTC 12:13 | PROVIDERS: ATTEND Anesthesiology | DX: Z11.59 Encounter for screening for other viral diseases (principal) | CPT/HCPCS: C9803; U0003 ==

== ENCOUNTER → 2020-03-19 | Outpatient (CLI) | payer OTHER ==
[~2020-03-19] MED LIST changes: +BUPIVACAINE HCL 0.25% 10ML VIAL As Ordered ONE; +BUPIVACAINE HCL 0.25% 30ML VIAL As Ordered ONE; +TRIAMCINOLONE ACETONIDE SUSP 40 MG/ML VIAL (J3301) As Ordered ONE; +diazePAM 2 MG TAB As Ordered ONE
--- NOTE | 2020-03-21 01:09 | ECWPNPC ---
PATIENT NAME: DULCE CHOWDHURY : 1975 GENDER: FEMALE VISIT DATE: 03/19/2020 DISCHARGE DATE: 03/19/20 1552 VISIT LOCKED DATE TIME: PHYSICIAN: RIKKI JUAREZ MD RESOURCE: RIKKI JUAREZ MD REASON FOR APPOINTMENT 1. TPI OF RIGHT LOW BACK PAT DONE HISTORY OF PRESENT ILLNESS GENERAL: -. FALL RISK SCREENING: SCREENING :NO FALLS REPORTED IN THE LAST YEAR PAIN SCREENING: PATIENT HAS A COMPLAINT OF ACUTE OR CHRONIC PAIN :YES LOCATION OF PAIN:LOW BACK, RIGHT HIP, LEG(S) INTENSITY OF PAIN (SCALE OF 1 TO 10):7 WHAT DOES YOUR PAIN FEEL LIKE:ACHING, BURNING, SHOOTING DURATION:STEADY PAIN IS INCREASED BY:ACTIVITIES, PROLONGED STANDING PAIN IS DECREASED BY:USE OF PAIN MEDICATIONS PAIN MEDS TAKE THE EDGE OFF NURSING NOTE: -. PAIN CENTER INTAKE QUESTIONS: DO YOU HAVE A HISTORY OF MRSA? :NO DO YOU TAKE A BLOOD THINNERS? :NO DO YOU HAVE ANY BLEEDING DISORDERS? :NO ANY NEW NUMBNESS OR WEAKNESS IN YOUR LEGS OR ARMS? :NO ANY PACEMAKER,DEFIBRILLATOR, OR DORSAL COLUMN STIMULATOR? :NO DO YOU HAVE ANY RASHES OR OPEN SORES? :YES CAT SCRATCHES ON HER LEGS ARE YOU ALLERGIC TO IV DYE? :NO ARE YOU DIABETIC? :NO ANY NEW PROBLEMS WITH YOUR MEDICATIONS? :NO HAVE YOU RECEIVED A VACCINE IN THE PAST 30 DAYS? :NO DO YOU PLAN TO RECEIVE A VACCINE IN THE NEXT 21 DAYS? :NO DO YOU TAKE ANY IMMUNOSUPPRESSIVE MEDICATIONS? :NO ANY HISTORY OF SEIZURES? :NO ANY HISTORY OF CARDIAC ISSUES OR EVENTS? :YES HEART ATTACK 06/2018 DO YOU HAVE SLEEP APNEA? :NO ANY RECENT HEAD INJURY? :NO DO YOU HAVE ANY NEW INFECTIONS? :NO IS THERE A CHANCE YOU COULD BE ? :NO ARE YOU BREAST FEEDING? :NO WHEN DID YOU LAST EAT? : -03/18 2100 WHEN DID YOU LAST DRINK? : 1100 03/19 WHAT DID YOU LAST DRINK? : -WATER NAME OF PERSON DRIVING YOU HOME? : -DAUGHTER JASON DO YOU HAVE ANY OTHER QUESTIONS OR CONCERNS? : - CURRENT MEDICATIONS TAKING ZIPRASIDONE HCL 60 MG CAPSULE 1 CAPSULE WITH FOOD ORALLY TWICE A DAY, NOTES: 03/18 2100 TAKING AMITRIPTYLINE HCL 50 MG TABLET 1 TABLET ORALLY ONCE A DAY, NOTES: 03/18 2100 TAKING VITAMIN D (ERGOCALCIFEROL) 14590 UNIT CAPSULE 1 CAPSULE ORALLY WEEKLY, NOTES: PT STATES HASN'T HAD IN A FEW MONTHS 11/26/19 TAKING VOLTAREN 1 % GEL DIRECTED TRANSDERMAL DAILY, NOTES: NOT LATELY TAKING TIZANIDINE HCL 4 MG TABLET 1 TABLET NEEDED ORALLY THREE TIMES A DAY, NOTES: 03/18 2100 TAKING ONE TOUCH/ONE TOUCH II STARTER - KIT DX;E11.9 IN VITRO FOUR TIMES DAILY TAKING MAY HAVE - - FREE STYLE LITE TEST STRIPS DIRECTED FOUR TIMES DAILY (E11.9) TAKING ASPIRIN 81 MG TABLET CHEWABLE 1 TABLET ORALLY ONCE A DAY, NOTES: 03/18 2100 TAKING TRAMADOL HCL 50 MG TABLET 1 TABLET NEEDED ORALLY EVERY 6 HRS PRN PAIN MDD=4, NOTES: 03/19 0800 TAKING LEVOCETIRIZINE DIHYDROCHLORIDE 5 MG TABLET 1 TABLET IN THE EVENING ORALLY ONCE A DAY, NOTES: 03/18 2100 TAKING KLONOPIN 0.5 MG TABLET 1 TABLET AT BEDTIME ORALLY ONCE A DAY, MDD=1, NOTES: 03/18 2100 TAKING PANTOPRAZOLE SODIUM 40 MG TABLET DELAYED RELEASE 1 TABLET ORALLY TWICE DAILY, NOTES: 03/18 2100 TAKING GABAPENTIN 800 MG TABLET 1 TABLET ORALLY THREE TIMES DAILY, NOTES: 03/18 2100 MEDICATION LIST REVIEWED AND RECONCILED WITH THE PATIENT PAST MEDICAL HISTORY HTN HIGH CHOLESTEROL AND TRIGLYSORIDES ANXIETY, DEPRESSION AND PTSD BIPOLAR DEPRESSION IN HX [place] GASTRIC BYPASS LOW BACK PAIN GERD GASTROPARESIS ARTHRITIS HIATAL HERNIA RECTOCELE ABNORMAL UTERINE BLEEDING NSTEMI ALLERGIES TAPE: RASH - ALLERGY PENICILLIN (FOR ALLERGIES USE ONLY): RASH - ALLERGY SURGICAL HISTORY D&C 2000 CHOLECYSTECTOMY 2001 HERNIA REPAIR X2 BACK DISCECTOMY LUMBAR REGION 2017 GASTRIC BYPASS 10/06/172017 RIGHT KNEE ARTHROSCOPY 2007 CARDIAC CATHETERIZATION 06/2018 RIGHT KNEE REPLACEMENT 06/2019 EGD 07/2010 JUSTUS, OBS, CYSTOSCOPY 02/12/20 FAMILY HISTORY FATHER: , DIAGNOSED WITH UNSPECIFIED HEART DISEASE, UNSPECIFIED CEREBRAL ARTERY OCCLUSION WITH CEREBRAL INFARCTION MOTHER: , UNSPECIFIED HEART DISEASE, DIABETES, OTHER MALIGNANT NEOPLASM OF UNSPECIFIED SITE 6 BROTHER(S) , 3 SISTER(S) - HEALTHY. 3DAUGHTER(S) - HEALTHY. SOCIAL HISTORY GENERAL: TOBACCO USE ARE YOU A:FORMER SMOKER HOW LONG HAS IT BEEN SINCE YOU LAST SMOKED?1-5 YEARS LATEX QUESTIONNAIRE LATEX ALLERGY : HAVE YOU EVER DEVELOPED ANY TYPE OF REACTION AFTER HANDLING LATEX PRODUCTS SUCH RUBBER GLOVES, CONDOMS, DIAPHRAGMS, BALLOONS, SOCKS, OR UNDERWEAR?NO REACTION TO TAPE IF ON TOO LONG LATEX ALLERGY : HAVE YOU EVER DEVELOPED ANY TYPE OF REACTION DURING OR AFTER DENTAL APPOINTMENT, VAGINAL/RECTAL EXAMINATION, SURGICAL PROCEDURE, OR ANY OTHER EXPOSURE?NO DATE ASKED : 02/27/2020 LATEX RISK : HAVE YOU EVER HAD ANY DIFFICULTY BREATHING OR HIVES AFTER EATING OR HANDLING ANY FRUITS, OR VEGETABLES; SUCH KIWI, BANANAS, STONE FRUITS, OR CHESTNUTSNO LATEX RISK : DO YOU HAVE A PREVIOUS PERSONAL HISTORY OF MORE THAN NINE SURGERIES, SPINA BIFIDA, OR REPEATED CATHERIZATIONS? NO LATEX RISK : ARE YOU FREQUENTLY EXPOSED TO LATEX PRODUCTS IN YOUR OCCUPATION?NO ALCOHOL SCREENING DID YOU HAVE A DRINK CONTAINING ALCOHOL IN THE PAST YEAR?NO POINTS0 INTERPRETATIONNEGATIVE RECREATIONAL DRUG USE DRUG USE?YES HOW OFTEN AND HOW MUCH? 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 MARITAL STATUS: . OTHERS AT HOME: 3 DGTRS AND BOYFRIEND AND CAT. PAIN CLINIC PFS, CLERGY, PUBLIC HEALTH REFERRALS PFS REFERRAL NEEDED?NO CLERGY REFERRAL NEEDED?NO PUBLIC HEALTH REFERRAL NEEDED?NO WAS THE PROVIDER NOTIFIED OF ANY PERTINENT INFO?YES N/A HAS THE PATIENT BEEN EDUCATED REGARDING HIS/HER PLAN OF CARE?YES HAS THE PATIENT BEEN EDUCATED REGARDING PAIN, THE RISK FOR PAIN, THE IMPORTANCE OF EFFECTIVE PAIN MANAGEMENT, AND THE PAIN ASSESSMENT PROCESS?YES ADVANCE DIRECTIVE ADVANCE DIRECTIVE DISCUSSED WITH PATIENT:YES PT DOES NOT HAVE ANY ADVANCED DIRECTIVES AND SHE DECLINES INFORMATION ON HCP AT THIS TIME. HOSPITALIZATION/MAJOR DIAGNOSTIC PROCEDURE SURGERY RELATED IN PT MENTAL HEALTH 2000 CHEST PAIN 03/07/2018 [place] 06/2018 VITAL SIGNS WT 170.8 LBS, HT 67 IN, BMI 26.75 INDEX, BP 127/70 MM HG, HR 71 /MIN, RR 18 /MIN, TEMP 97.1 F, OXYGEN SAT % 99%, NA INITIALS SC 14:09. EXAMINATION GENERAL EXAMINATION: THE PATIENT IS ALERT, ORIENTED TIMES THREE AND COOPERATIVE. HEART SHOWS REGULAR RHYTHM, NO MURMURS AND NO GALLOPS. LUNGS ARE CLEAR TO AUSCULTATION. ASSESSMENTS MYALGIA, OTHER SITE - M79.18 (PRIMARY) TREATMENT MYALGIA, OTHER SITE MEDICATION: VALIUM TAB 2MG ORALLY (DIAZEPAM)SALBADOR COBB 03/19/2020 2:42:26 PM > VERIFIED BRIE CHISHOLM 03/19/2020 2:43:43 PM > EXP SEP 2020 [id number] GIVEN SALINE LOCKSOBRIE CHASE 03/19/2020 3:02:17 PM > SALINE LOCK # 22 INSERTED INTO LEFT WRIST 1ST ATTEMPT, SITE WITHOUT REDNESS, SWELLING, DRAINAGE. FLUSHES EASILY PROCEDURES PAIN NURSING RECORD PROCEDURE PHYSICIAN IN ROOM 1524, START 1527, FINISH 1530, STEROID KENALOG, O2 N/A, ECG N/A, PATIENT SHIELDED NO, SAFETY STRAP NO, PREP ALCOHOL, DRESSING TEGADERM LOC: 1. ALERT, ORIENTED RESP: 1. REGULAR, NO DYSPNEA COLOR: 1. PINK SKIN: 1. WARM, DRY POSITION: 1. PRONE VITALS: 1535 135/92 71-16 99% DISCHARGE: POST PAIN 5, DRESSING SITE DRY AND INTACT, IV DISCONTINUED, SITE CLEAR, CATHETER INTACT, GAIT STEADY, TEACHING COMPLETED, PATIENT ACKNOWLEDGES UNDERSTANDING YES, PATIENT DISCHARGED AT 1551 PN TRIGGER POINT INJECTION WITH STEROIDS PRE PROCEDURE DIAGNOSIS 1. MYALGIA 2. PAIN AT RIGHT LOWER BACK AREA POST PROCEDURE DIAGNOSIS 1. MYALGIA 2. PAIN AT RIGHT LOWER BACK AREA PROCEDURE TRIGGER POINT INJECTION AT RIGHT LOWER BACK AREA SURGEON DR. RIKKI JUAREZ EMBEDDED FIRMWARE DEVELOPER NONE ANESTHESIA LOCAL PRE PROCEDURE NOTE THE PATIENT HAS A HISTORY OF CHRONIC PAIN AT THE RIGHT LOWER BACK. I EVALUATED THE PATIENT AND REVIEWED THE CHART. THERE IS EVIDENCE OF BANDS OF TISSUE WITH RESTRICTION OF MOVEMENT AND PRESENCE OF TRIGGER POINT AT THE RIGHT LOWER BACK AREA. I WENT OVER THE RISKS, ALTERNATIVES, AND BENEFITS ASSOCIATED WITH THIS PROCEDURE. I DISCUSSED THAT THE USE OF STEROIDS MAY CONTRIBUTE TO IMMUNOSUPPRESSION OF THE PATIENT'S BODY AGAINST INFECTIONS SUCH COVID-19. THE PATIENT IS AWARE OF THE POTENTIAL COMPLICATIONS ASSOCIATED WITH THIS VIRUS, INCLUDING, BUT NOT LIMITED TO, . I DISCUSSED THE USE OF DEXAMETHASONE INSTEAD OF KENALOG; HOWEVER, THE PATIENT WOULD LIKE TO MOVE FORWARD WITH KENALOG. THE PATIENT WOULD LIKE TO PROCEED AND GIVE CONSENT TO PERFORMED THE PROCEDURE. THE PATIENT DENIES UNEXPLAINABLE WEIGHT LOSS, FEVER, CHILLS, OR NEW CHANGES IN URINARY OR BOWEL CONTROL. THE PATIENT IS COVID-19 NEGATIVE DESCRIPTION OF PROCEDURE THE PATIENT WAS BROUGHT TO THE PROCEDURE ROOM AND PLACED IN THE PRONE POSITION. THE AREA WAS CLEANED WITH ALCOHOL. THE PROCEDURE WAS DONE USING ASEPTIC STERILE TECHNIQUE. A TIMEOUT WAS PERFORMED WHERE LATERALITY AND THE SITE OF THE PROCEDURE WERE CHECKED AND CONFIRMED WITH EVERYONE IN THE ROOM. USING A 25-GAUGE NEEDLE, TRIGGER POINTS WERE INJECTED AT THE RIGHT LOWER BACK AREA WITH A TOTAL OF 40 ML OF BUPIVACAINE 0.25% AND KENALOG 40 MG. THE MEDICATIONS WERE VERIFIED WITH THE NURSE. THERE WAS NO EVIDENCE OF BLOOD OR PARESTHESIA DURING THE PROCEDURE. THE PATIENT WAS SENT TO THE RECOVERY ROOM. THE PATIENT WAS MOVING THE EXTREMITIES AND DOING WELL. THERE WERE NO COMPLICATIONS DURING THE PROCEDURE. ESTIMATED BLOOD LOSS WAS LESS THAN 5 ML POST PROCEDURE NOTE THE PROCEDURE DONE WAS DISCUSSED WITH THE PATIENT. THE PATIENT WILL BE SEEN IN A FOLLOW UP IN THE NEXT FEW WEEKS. I AM LOOKING FOR LONG LASTING PAIN RELIEF FOR THE PATIENT WITH THIS INTERVENTION. INSTRUCTIONS WERE GIVEN, QUESTIONS WERE ANSWERED, AND THE PATIENT EXPRESSED UNDERSTANDING AND AGREES WITH THE PLAN. I, EVERETTE AG, DOCUMENTED THE ABOVE INFORMATION ACTING A SCRIBE FOR DR. JUAREZ. I HAVE REVIEWED THE ABOVE DOCUMENT, WRITTEN BY EVERETTE AG, RN BABY, AND I VERIFY THAT IT IS ACCURATE PROCEDURE CODES 67088 INJ TRIGGER POINT / MUSCL DISPOSITION & COMMUNICATION FOLLOW UP F/UP WITH FABRICATION MACHINE OPERATOR (REASON: POST TPI RT LOW BACK) ELECTRONICALLY SIGNED BY RIKKI JUAREZ MD, MD ON 03/20/2020 AT 12:30 PM EDT DISCLAIMER : THIS IS A VISIT SUMMARY EXTRACTED FROM THE [employer] CHART. IT IS NOT A COPY OF THE [employer] PROGRESS NOTE. YONI
== END ==
LOC: M PAIN 13:15
PROVIDERS: ATTEND Anesthesiology
DX: M79.18 Myalgia, other site (principal)
CPT/HCPCS: 20552; J3301

== ENCOUNTER → 2020-05-22 | Outpatient (CLI) | payer OTHER ==
[~2020-05-22] MED LIST changes: +AMLO1TAB24 PO; -AMLO5TAB6 PO; -BUPIVACAINE HCL 0.25% 10ML VIAL As Ordered ONE; -BUPIVACAINE HCL 0.25% 30ML VIAL As Ordered ONE; +PANT40TA29 PO; -PANT40TA3 PO; -TRIAMCINOLONE ACETONIDE SUSP 40 MG/ML VIAL (J3301) As Ordered ONE; -diazePAM 2 MG TAB As Ordered ONE
--- NOTE | 2020-05-22 19:02 | REPVR ---
PROCEDURE INFORMATION: Exam: XR Right Hand Exam date and time: 05/22/2020 6:29 PM Age: 44 years old Clinical indication: Pain; Hand; Right; Additional info: RT hand punched a wall TECHNIQUE: Imaging protocol: XR Right hand. Views: 3 or more views. COMPARISON: No relevant prior studies available. FINDINGS: Bones/joints: No fracture. Soft tissues: Soft tissue swelling noted on the dorsum of the hand IMPRESSION: Soft tissue swelling with no radiographic evidence of fracture Electronically signed by: Gladys Junior On 05/22/2020 19:02:00 PM
== END ==
LOC: M RAD 18:12
PROVIDERS: ATTEND Physician Assistant Medical
DX: S69.91XA Unspecified injury of right wrist, hand and finger(s), initial encounter (principal); W22.09XA Striking against other stationary object, initial encounter; Y92.89 Other specified places as the place of occurrence of the external cause; Y93.9 Activity, unspecified; Y99.9 Unspecified external cause status

== ENCOUNTER → 2020-07-07 | Outpatient (CLI) | payer OTHER ==
--- NOTE | 2020-07-09 01:34 | ECWPNPC ---
PATIENT NAME: DULCE CHOWDHURY : 1975 GENDER: FEMALE VISIT DATE: 07/07/2020 DISCHARGE DATE: 07/07/20 1013 VISIT LOCKED DATE TIME: PHYSICIAN: JIMBO VARGAS PHYSICIAN PAGER NO: ACTIVE RESOURCE: JIMBO VARGAS REASON FOR APPOINTMENT 1. BACK HISTORY OF PRESENT ILLNESS DEPRESSION SCREENING: PHQ-2 (2015 EDITION) LITTLE INTEREST OR PLEASURE IN DOING THINGS?NOT AT ALL FEELING DOWN, DEPRESSED, OR HOPELESS?NOT AT ALL TOTAL SCORE0 45-YEAR-OLD FEMALE IN FOR CHRONIC PAIN FOLLOW-UP. SHE RATES HER PAIN CURRENTLY AT A 5 OUT OF 10 AND DESCRIBES IT ACHING, BURNING, CONTINUOUS, SHARP, STABBING, TENDER, THROBBING, AND SHOOTING. SHE FEELS HER MEDICATIONS ARE HELPFUL AND DENIES MED SIDE EFFECTS AT THIS TIME. GENERAL: -. FALL RISK SCREENING: SCREENING :NO FALLS REPORTED IN THE LAST YEAR PAIN SCREENING: PATIENT HAS A COMPLAINT OF ACUTE OR CHRONIC PAIN :YES LOCATION OF PAIN:LOW BACK RIGHT SIDE, DOWN RIGHT LEG INTENSITY OF PAIN (SCALE OF 1 TO 10):5 WHAT DOES YOUR PAIN FEEL LIKE:ACHING, BURNING, CONTINOUS, SHARP, STABBING, TENDER, THROBBING, SHOOTING DURATION:CONTINOUS PAIN IS INCREASED BY:ACTIVITIES, PROLONGED STANDING PAIN IS DECREASED BY:USE OF PAIN MEDICATIONS PHYSICAL THERAPY EXERCISES NURSING NOTE: -. PAIN CENTER INTAKE QUESTIONS: DO YOU HAVE A HISTORY OF MRSA? :NO DO YOU TAKE A BLOOD THINNERS? :YES ASA 81MG DO YOU HAVE ANY BLEEDING DISORDERS? :NO ANY NEW NUMBNESS OR WEAKNESS IN YOUR LEGS OR ARMS? :NO ANY PACEMAKER,DEFIBRILLATOR, OR DORSAL COLUMN STIMULATOR? :NO DO YOU HAVE ANY RASHES OR OPEN SORES? :NO ARE YOU ALLERGIC TO IV DYE? :NO ARE YOU DIABETIC? :NO ANY NEW PROBLEMS WITH YOUR MEDICATIONS? :NO HAVE YOU RECEIVED A VACCINE IN THE PAST 30 DAYS? :NO DO YOU PLAN TO RECEIVE A VACCINE IN THE NEXT 21 DAYS? :YES IF SO WHAT VACCINE AND WHEN? FLU SHOT, EDUCATED PT REGARDING SCHEDULING FLU SHOT 3 WEEKS BEFORE OR AFTER PROCEDURE DO YOU NEED ANY PRESCRIPTION? :YES GABAPENTIN AND TIZANIDINE DO YOU TAKE ANY IMMUNOSUPPRESSIVE MEDICATIONS? :NO IS THERE A CHANCE YOU COULD BE ? :NO ARE YOU BREAST FEEDING? :NO CURRENT MEDICATIONS TAKING ZIPRASIDONE HCL 60 MG CAPSULE 1 CAPSULE WITH FOOD ORALLY TWICE A DAY TAKING AMITRIPTYLINE HCL 50 MG TABLET 1 TABLET ORALLY ONCE A DAY TAKING VITAMIN D (ERGOCALCIFEROL) 55566 UNIT CAPSULE 1 CAPSULE ORALLY WEEKLY, NOTES: PT STATES HASN'T HAD IN A FEW MONTHS 11/26/19 TAKING VOLTAREN 1 % GEL DIRECTED TRANSDERMAL DAILY TAKING ONE TOUCH/ONE TOUCH II STARTER - KIT DX;E11.9 IN VITRO FOUR TIMES DAILY TAKING MAY HAVE - - FREE STYLE LITE TEST STRIPS DIRECTED FOUR TIMES DAILY (E11.9) TAKING ASPIRIN 81 MG TABLET CHEWABLE 1 TABLET ORALLY ONCE A DAY TAKING LEVOCETIRIZINE DIHYDROCHLORIDE 5 MG TABLET 1 TABLET IN THE EVENING ORALLY ONCE A DAY TAKING KLONOPIN 0.5 MG TABLET 1 TABLET AT BEDTIME ORALLY ONCE A DAY, MDD=1 TAKING PANTOPRAZOLE SODIUM 40 MG TABLET DELAYED RELEASE 1 TABLET ORALLY TWICE DAILY TAKING GABAPENTIN 800 MG TABLET 1 TABLET ORALLY THREE TIMES DAILY TAKING TIZANIDINE HCL 4 MG TABLET 1 TABLET NEEDED ORALLY THREE TIMES A DAY TAKING TRAMADOL HCL 50 MG TABLET 1 TABLET NEEDED ORALLY EVERY 6 HRS PRN PAIN MDD=4 TAKING WELLBUTRIN SR 150 MG TABLET EXTENDED RELEASE 12 HOUR 1 TABLET IN THE MORNING ORALLY ONCE A DAY TAKING TRAZODONE HCL 50 MG TABLET 1 TABLET AT BEDTIME NEEDED ORALLY ONCE A DAY MEDICATION LIST REVIEWED AND RECONCILED WITH THE PATIENT PAST MEDICAL HISTORY HTN HIGH CHOLESTEROL AND TRIGLYSORIDES ANXIETY, DEPRESSION AND PTSD BIPOLAR DEPRESSION IN HX CT GASTRIC BYPASS LOW BACK PAIN GERD GASTROPARESIS ARTHRITIS HIATAL HERNIA RECTOCELE ABNORMAL UTERINE BLEEDING NSTEMI ALLERGIES TAPE: RASH - ALLERGY PENICILLIN (FOR ALLERGIES USE ONLY): RASH - ALLERGY SURGICAL HISTORY D&C 2000 CHOLECYSTECTOMY 2001 HERNIA REPAIR X2 BACK DISCECTOMY LUMBAR REGION 2017 GASTRIC BYPASS 10/06/172017 RIGHT KNEE ARTHROSCOPY 2007 CARDIAC CATHETERIZATION 06/2018 RIGHT KNEE REPLACEMENT 06/2019 EGD 07/2010 JUSTUS, OBS, CYSTOSCOPY 02/12/20 FAMILY HISTORY FATHER: , DIAGNOSED WITH UNSPECIFIED HEART DISEASE, UNSPECIFIED CEREBRAL ARTERY OCCLUSION WITH CEREBRAL INFARCTION MOTHER: , UNSPECIFIED HEART DISEASE, DIABETES, OTHER MALIGNANT NEOPLASM OF UNSPECIFIED SITE 6 BROTHER(S) , 3 SISTER(S) - HEALTHY. 3DAUGHTER(S) - HEALTHY. SOCIAL HISTORY GENERAL: TOBACCO USE ARE YOU A:FORMER SMOKER HOW LONG HAS IT BEEN SINCE YOU LAST SMOKED?1-5 YEARS LATEX QUESTIONNAIRE LATEX ALLERGY : HAVE YOU EVER DEVELOPED ANY TYPE OF REACTION AFTER HANDLING LATEX PRODUCTS SUCH RUBBER GLOVES, CONDOMS, DIAPHRAGMS, BALLOONS, SOCKS, OR UNDERWEAR?YES REACTION TO TAPE IF ON TOO LONG LATEX ALLERGY : HAVE YOU EVER DEVELOPED ANY TYPE OF REACTION DURING OR AFTER DENTAL APPOINTMENT, VAGINAL/RECTAL EXAMINATION, SURGICAL PROCEDURE, OR ANY OTHER EXPOSURE?NO LATEX RISK : HAVE YOU EVER HAD ANY DIFFICULTY BREATHING OR HIVES AFTER EATING OR HANDLING ANY FRUITS, OR VEGETABLES; SUCH KIWI, BANANAS, STONE FRUITS, OR CHESTNUTSNO LATEX RISK : DO YOU HAVE A PREVIOUS PERSONAL HISTORY OF MORE THAN NINE SURGERIES, SPINA BIFIDA, OR REPEATED CATHERIZATIONS? NO LATEX RISK : ARE YOU FREQUENTLY EXPOSED TO LATEX PRODUCTS IN YOUR OCCUPATION?NO DATE ASKED : 07/07/2020 ALCOHOL SCREENING DID YOU HAVE A DRINK CONTAINING ALCOHOL IN THE PAST YEAR?NO POINTS0 INTERPRETATIONNEGATIVE RECREATIONAL DRUG USE DRUG USE?YES HOW OFTEN AND HOW MUCH? 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 MARITAL STATUS: . OTHERS AT HOME: 3 DGTRS AND BOYFRIEND AND CAT. PAIN CLINIC PFS, CLERGY, PUBLIC HEALTH REFERRALS PFS REFERRAL NEEDED?NO CLERGY REFERRAL NEEDED?NO PUBLIC HEALTH REFERRAL NEEDED?NO WAS THE PROVIDER NOTIFIED OF ANY PERTINENT INFO?YES N/A HAS THE PATIENT BEEN EDUCATED REGARDING HIS/HER PLAN OF CARE?YES HAS THE PATIENT BEEN EDUCATED REGARDING PAIN, THE RISK FOR PAIN, THE IMPORTANCE OF EFFECTIVE PAIN MANAGEMENT, AND THE PAIN ASSESSMENT PROCESS?YES ADVANCE DIRECTIVE ADVANCE DIRECTIVE DISCUSSED WITH PATIENT:YES PT DOES NOT HAVE ANY ADVANCED DIRECTIVES AND SHE DECLINES INFORMATION ON HCP AT THIS TIME. HOSPITALIZATION/MAJOR DIAGNOSTIC PROCEDURE SURGERY RELATED IN PT MENTAL HEALTH 2000 CHEST PAIN 03/07/2018 CT 06/2018 REVIEW OF SYSTEMS CONSTITUTIONAL: ANY RECENT FEVER NO . CHILLS NO . WEIGHT CHANGE OF UNKNOWN REASONS NO . GASTROENTEROLOGY: NEW UNEXPLAINABLE CHANGES IN BOWEL CONTROL NO . CONSTIPATION NO . GENITOURINARY: ANY NEW CHANGE IN BLADDER CONTROL? NO . NEUROLOGY: NEW ONSET DIZZINESS OR NEUROLOGICAL CHANGES NOT MENTIONED NO . NEW NUMBNESS OR PAIN PATTERNS NOT MENTIONED AND PERTINENT TO TODAY'S VISIT NO . CARDIOLOGY: NEW CHEST PRESSURE NO . NEW CHEST PAIN NO . RESPIRATORY: UNEXPLAINABLE COUGH NO . NEW SHORTNESS OF BREATH NO . VITAL SIGNS WT 183.6 LBS, HT 67 IN, BMI 28.75 INDEX, BP 120/76 MM HG, HR 75 /MIN, RR 18 /MIN, TEMP 97.0 F, OXYGEN SAT % 100%, SAFE IN ENV? (Y/N) Y, NA INITIALS AW 0938, REVIEWED BY: GALE. EXAMINATION GENERAL EXAMINATION: GENERALNO ACUTE DISTRESS, WELL NOURISHED AND HYDRATED. PSYCHAPPROPRIATE MOOD AND AFFECT . LUNGS:CLEAR TO AUSCULTATION BILATERALLY, NO WHEEZES, RHONCHI, RALES. HEART:NO MURMURS, REGULAR RATE AND RHYTHM. ASSESSMENTS SPONDYLOSIS OF LUMBOSACRAL REGION WITHOUT MYELOPATHY OR RADICULOPATHY - M47.817 (PRIMARY) TREATMENT SPONDYLOSIS OF LUMBOSACRAL REGION WITHOUT MYELOPATHY OR RADICULOPATHY CLINICAL NOTES: 45-YEAR-OLD FEMALE IN FOR CHRONIC PAIN FOLLOW-UP. GIVEN PRESENTING SYMPTOMS RECOMMENDED CONTINUATION OF CURRENT MEDICATION REGIMEN WITH FOLLOW-UP IN 3 MONTHS. PATIENT HAS EXPRESSED UNDERSTANDING OF AND WAS IN AGREEMENT WITH TREATMENT PLAN. GIVEN TIME TO ASK QUESTIONS AND EXPRESS CONCERNS. , ISTOP REGISTRY REVIEWED AND DEMONSTRATES COMPLLIANCE. (REF # [id number] ) BRINGS IN MEDICATIONS WHICH IS APPROPRIATE FOR WHAT WAS DISPENSED. RECENT URINE TOXICOLOGY REVIEWED. NO UNAUTHORIZED MEDICATIONS. NO ILLICIT SUBSTANCES AND PRESCRIBED MEDICATIONS WERE PRESENT. PREVENTIVE MEDICINE PAIN CLINIC TEACHING: THE PATIENT HAS BEEN EDUCATED REGARDING HIS/HER PLAN OF CARE :YES (PLEASE DOCUMENT ADDTIONAL DETAILS IN THE FREE TEXT NOTES SECTION) PATIENT PROVIDED ORAL SPECIMEN TODAY FOR SCREENING, PATIENT EDUCATED ON CONTINUATION OF TREATMENT PLAN. DISPOSITION & COMMUNICATION FOLLOW UP 3 MONTHS (REASON: BACK PAIN) ELECTRONICALLY SIGNED BY LAKHWINDER DARBY ON 07/08/2020 AT 08:49 AM EDT DISCLAIMER : THIS IS A VISIT SUMMARY EXTRACTED FROM THE [employer] CHART. IT IS NOT A COPY OF THE [employer] PROGRESS NOTE. YONI
== END ==
LOC: M PAIN 09:30
PROVIDERS: ATTEND Family Medicine
DX: M47.817 Spondylosis without myelopathy or radiculopathy, lumbosacral region (principal); I10 Essential (primary) hypertension; E78.2 Mixed hyperlipidemia; F41.9 Anxiety disorder, unspecified; F32.9 Major depressive disorder, single episode, unspecified; F43.10 Post-traumatic stress disorder, unspecified; I25.2 Old myocardial infarction; Z98.84 Bariatric surgery status; M54.5 Low back pain; K21.9 Gastro-esophageal reflux disease without esophagitis; K44.9 Diaphragmatic hernia without obstruction or gangrene; Z87.891 Personal history of nicotine dependence; Z79.82 Long term (current) use of aspirin; Z79.891 Long term (current) use of opiate analgesic; Z79.899 Other long term (current) drug therapy; Z88.0 Allergy status to penicillin; Z91.048 Other nonmedicinal substance allergy status

== ENCOUNTER → 2020-07-20 | Outpatient (CLI) | payer OTHER ==
[2020-07-20 08:07] LABS: BASO % 0.8 % (0.0-1.0); EOS # 0.1 10^3/uL (0.0-0.5); EOS % 2.2 % (0.0-3.0); HEMATOCRIT 40.4 % (36.0-47.0); HEMOGLOBIN 13.1 g/dl (12.0-15.5); LYMPH # 1.5 10^3/uL (1.5-5.0); MEAN CORPUSCULAR HEMOGLOBIN 29.7 pg (27.0-33.0); MEAN CORPUSCULAR HGB CONC 32.4 g/dl (32.0-36.5); MEAN CORPUSCULAR VOLUME 91.6 fl (80.0-96.0); MONO # 0.3 10^3/uL (0.0-0.8); MONO % 7.3 % (0.0-5.0); NEUTROPHILS # 1.7 10^3/uL (1.5-8.5); NEUTROPHILS % 48.4 % (36.0-66.0); PLATELET COUNT, AUTOMATED 207 10^3/uL (150-450); RED BLOOD COUNT 4.41 10^6/uL (4.00-5.40); WHITE BLOOD COUNT 3.6 10^3/uL (4.0-10.0)
[2020-07-20 08:43] LABS: ALT/SGPT 26 U/L (12-78); BILIRUBIN,TOTAL 0.4 MG/DL (0.2-1.0); BLOOD UREA NITROGEN 5 MG/DL (7-18); CALCIUM LEVEL 8.7 MG/DL (8.5-10.1); CARBON DIOXIDE LEVEL 29 MEQ/L (21-32); CHLORIDE LEVEL 108 MEQ/L (98-107); CHOLESTEROL LEVEL 133 MG/DL (<200); CREATININE FOR GFR 0.95 MG/DL (0.55-1.30); GLOMERULAR FILTRATION RATE > 60.0 (>58); GLUCOSE, FASTING 82 MG/DL (70-100); HDL CHOLESTEROL 54 MG/DL (>40); NON-HDL-C 79 MG/DL; POTASSIUM SERUM 3.7 MEQ/L (3.5-5.1); SODIUM LEVEL 142 MEQ/L (136-145); TRIGLYCERIDES LEVEL 53 MG/DL (<150)
[2020-07-20 08:44] LABS: ALBUMIN 3.6 GM/DL (3.2-5.2); CHOLESTEROL RISK RATIO 2.462 (<5); FREE T4 1.13 NG/DL (0.76-1.46); LDL CHOLESTEROL 68 MG/DL (<100); TOTAL PROTEIN 6.6 GM/DL (6.4-8.2)
[2020-07-20 09:45] LABS: TOTAL 25(OH) VITAMIN D 32.5 NG/ML (30.0-100.0); VITAMIN B12 LEVEL > 2000 PG/ML (247-911)
[2020-07-20 09:47] LABS: HEMOGLOBIN A1c 5.1 %
== END ==
LOC: M LAB 07:28
PROVIDERS: ATTEND 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 Psychiatric/Mental Health
DX: F31.72 Bipolar disorder, in full remission, most recent episode hypomanic (principal)
CPT/HCPCS: 36415; 80053; 80061; 82306; 82607; 83036; 84439; 84443; 85025; G0480

== ENCOUNTER → 2020-09-18 | Outpatient (CLI) | payer OTHER ==
[2020-09-18 09:46] LABS: BASO # 0.1 10^3/uL (0.0-0.2); BASO % 1.7 % (0.0-1.0); EOS # 0.2 10^3/uL (0.0-0.5); EOS % 4.7 % (0.0-3.0); HEMATOCRIT 40.4 % (36.0-47.0); HEMOGLOBIN 12.9 g/dl (12.0-15.5); LYMPH # 1.3 10^3/uL (1.5-5.0); LYMPH % 38.5 % (24.0-44.0); MEAN CORPUSCULAR HEMOGLOBIN 29.5 pg (27.0-33.0); MEAN CORPUSCULAR HGB CONC 31.9 g/dl (32.0-36.5); MEAN CORPUSCULAR VOLUME 92.4 fl (80.0-96.0); MONO # 0.3 10^3/uL (0.0-0.8); NEUTROPHILS # 1.6 10^3/uL (1.5-8.5); NEUTROPHILS % 45.8 % (36.0-66.0); PLATELET COUNT, AUTOMATED 210 10^3/uL (150-450); RED BLOOD COUNT 4.37 10^6/uL (4.00-5.40); WHITE BLOOD COUNT 3.4 10^3/uL (4.0-10.0)
[2020-09-18 10:25] LABS: ALBUMIN 3.5 GM/DL (3.2-5.2); ALT/SGPT 28 U/L (12-78); BILIRUBIN,TOTAL 0.4 MG/DL (0.2-1.0); BLOOD UREA NITROGEN 5 MG/DL (7-18); CALCIUM LEVEL 8.7 MG/DL (8.5-10.1); CARBON DIOXIDE LEVEL 28 MEQ/L (21-32); CHLORIDE LEVEL 108 MEQ/L (98-107); CHOLESTEROL LEVEL 152 MG/DL (<200); CHOLESTEROL RISK RATIO 2.375 (<5); CREATININE FOR GFR 0.84 MG/DL (0.55-1.30); GLOMERULAR FILTRATION RATE > 60.0 (>58); GLUCOSE, FASTING 85 MG/DL (70-100); HDL CHOLESTEROL 64 MG/DL (>40); LDL CHOLESTEROL 80 MG/DL (<100); MAGNESIUM LEVEL 1.8 MG/DL (1.8-2.4); NON-HDL-C 88 MG/DL; PHOSPHORUS LEVEL 3.4 MG/DL (2.5-4.9); SODIUM LEVEL 142 MEQ/L (136-145); TOTAL PROTEIN 6.2 GM/DL (6.4-8.2); TRIGLYCERIDES LEVEL 42 MG/DL (<150)
== END ==
LOC: M LAB 08:39
PROVIDERS: ATTEND Student in an Organized Health Care Education/Training Program
DX: Z98.84 Bariatric surgery status (principal)

== ENCOUNTER 2020-10-02 22:15 | Emergency (ER) | payer OTHER ==
[~2020-10-02] VITALS: Ht 162.6 cm; Wt 81.0 kg
[~2020-10-02 22:15] MED LIST changes: -AMIT25TA PO; +AMIT25TA17 PO; -BUPR150T3 PO; +BUPR150T4 PO; +HYDR-3490 PO; -HYDR25TAB PO; -LISI-542 PO; +LISI-898 PO
[2020-10-02 22:41] VITALS: BP 129/85
[2020-10-02] MEDS ORDERED: NS 1,000 ML IV SCH (22:45)
[2020-10-02] MEDS ORDERED: OLAN5TAB PO (22:49)
[2020-10-02 22:55] LABS: BASO % 0.6 % (0.0-1.0); EOS # 0.1 10^3/uL (0.0-0.5); EOS % 2.6 % (0.0-3.0); HEMOGLOBIN 11.8 g/dl (12.0-15.5); LYMPH # 1.5 10^3/uL (1.5-5.0); MEAN CORPUSCULAR HEMOGLOBIN 28.9 pg (27.0-33.0); MEAN CORPUSCULAR HGB CONC 31.9 g/dl (32.0-36.5); MEAN CORPUSCULAR VOLUME 90.5 fl (80.0-96.0); MONO # 0.6 10^3/uL (0.0-0.8); MONO % 10.8 % (0.0-5.0); NEUTROPHILS # 3.1 10^3/uL (1.5-8.5); NEUTROPHILS % 57.4 % (36.0-66.0); PLATELET COUNT, AUTOMATED 162 10^3/uL (150-450); RED BLOOD COUNT 4.09 10^6/uL (4.00-5.40); WHITE BLOOD COUNT 5.4 10^3/uL (4.0-10.0)
[2020-10-02 23:08] LABS: INR 0.93; PROTHROMBIN TIME 12.7 SECONDS (12.5-14.3)
[2020-10-02 23:27] LABS: HCG, SERUM QUALITATIVE NEGATIVE (NEGATIVE)
[2020-10-02 23:49] LABS: BLOOD UREA NITROGEN 9 MG/DL (7-18); CALCIUM LEVEL 8.8 MG/DL (8.5-10.1); CARBON DIOXIDE LEVEL 25 MEQ/L (21-32); CHLORIDE LEVEL 106 MEQ/L (98-107); CK-MB VALUE MASS 2.3 NG/ML (<3.6); CPK CREATINE PHOSPHOKINASE 227 U/L (26-192); CREATININE FOR GFR 0.92 MG/DL (0.55-1.30); ETHYL ALCOHOL (ETHANOL) < 0.003 % (0.000-0.010); FREE T4 0.76 NG/DL (0.76-1.46); GLOMERULAR FILTRATION RATE > 60.0 (>58); GLUCOSE, FASTING 98 MG/DL (70-100); MAGNESIUM LEVEL 1.5 MG/DL (1.8-2.4); MB/CK RELATIVE INDEX 1.01 (< OR =4); POTASSIUM SERUM 3.8 MEQ/L (3.5-5.1); SODIUM LEVEL 140 MEQ/L (136-145); TROPONIN I < 0.02 NG/ML (< 0.10)
--- NOTE | 2020-10-03 00:10 | REPVR ---
PROCEDURE INFORMATION: Exam: CT Head Without Contrast Exam date and time: 10/02/2020 10:40 PM Age: 45 years old Clinical indication: Other: Seizure act. ; Additional info: Syncope TECHNIQUE: Imaging protocol: Computed tomography of the head without contrast. Radiation optimization: All CT scans at this facility use at least one of these dose optimization techniques: automated exposure control; mA and/or kV adjustment per patient size (includes targeted exams where dose is matched to clinical indication); or iterative reconstruction. COMPARISON: CT Head without contrast 11/24/2019 3:25 PM FINDINGS: Brain: There is no acute intracranial hemorrhage or abnormal extra-axial fluid collection identified. There is no intracranial mass effect or shift of midline structures. The alonso-white differentiation is preserved throughout. Cerebral ventricles: There is no sulcal or ventricular effacement. The basilar cisterns are open. No hydrocephalus. Bones/joints: No calvarial fracture or destructive osseous lesions are seen. Paranasal sinuses: The visualized sinuses are unremarkable. Mastoid air cells: There is no mastoid effusion detected. Soft tissues: Unremarkable. IMPRESSION: No acute intracranial pathology identified by CT. Electronically signed by: Loreta Ramirez On 10/03/2020 00:10:05 AM
--- NOTE | 2020-10-03 00:47 | REPVR ---
PROCEDURE INFORMATION: Exam: XR Chest, 1 View Exam date and time: 10/03/2020 12:27 AM Age: 45 years old Clinical indication: Chest pain; Additional info: Syncope/near-syncope TECHNIQUE: Imaging protocol: XR of the chest Views: 1 view. COMPARISON: [place] PORTABLE CHEST X-RAY 11/24/2019 3:39 PM FINDINGS: Lungs: There is no pulmonary vascular congestion. There is no evidence of focal parenchymal consolidation. Pleural space: There are no pleural effusions. There is no evidence of pneumothorax. Heart/Mediastinum: The cardiac silhouette is within normal limits. Bones/joints: No acute osseous abnormality is identified. IMPRESSION: No acute cardiopulmonary disease identified. Electronically signed by: Loreta Ramirez On 10/03/2020 00:46:39 AM
--- NOTE | 2020-10-03 08:06 | ECGEPIP ---
[facility] - ED Test Date: 2020-10-02 Pat Name: DULCE CHOWDHURY Department: Room: - Gender: Female Sports Management Intern: robert : 1975 Requested By: RUTHIE KEANE Order Number: [id number] Reading MD: Stewart Lewis Measurements Intervals [place] Rate: 78 P: 50 TN: 197 QRS: 1 QRSD: 98 T: 30 QT: 391 QTc: 447 Interpretive Statements SINUS RHYTHM LOW QRS VOLTAGE IN PRECORDIAL LEADS SIMILAR TO 11/24/19 Electronically Signed on 10-03-2020 8:06:19 EST by Stewart Lewis
== END 2020-10-03 03:02 | disposition home or self-care (01) ==
LOC: M ED 22:15
DX: R55 Syncope and collapse (principal); I25.10 Atherosclerotic heart disease of native coronary artery without angina pectoris; Z79.899 Other long term (current) drug therapy; Z79.82 Long term (current) use of aspirin; Z88.0 Allergy status to penicillin; Z91.048 Other nonmedicinal substance allergy status; Z98.0 Intestinal bypass and anastomosis status
CPT/HCPCS: 70450; 71045; 80048; 82550; 82553; 83735; 84439; 84443; 84703; 85025; 85610; 93005; 93041; 94760; 96360; 96361; 99285; G0480

== ENCOUNTER → 2020-10-07 | Outpatient (CLI) | payer OTHER ==
[~2020-10-07] MED LIST changes: +OLAN5TAB PO
--- NOTE | 2020-10-09 08:11 | ECWPNPC ---
PATIENT NAME: DULCE CHOWDHURY : 1975 GENDER: FEMALE VISIT DATE: 10/07/2020 DISCHARGE DATE: 10/07/20 1036 VISIT LOCKED DATE TIME: PHYSICIAN: JIMBO VARGAS PHYSICIAN PAGER NO: ACTIVE RESOURCE: JIMBO VARGAS REASON FOR APPOINTMENT 1. BACK PAIN HISTORY OF PRESENT ILLNESS GENERAL: -45 OLD FEMALE IN FOR CHRONIC PAIN FOLLOW-UP SHE RATES HER PAIN CURRENTLY AT A 5 OUT OF 10 AND DESCRIBES IT ACHING, BURNING, AND STABBING. SHE FEELS MEDICATIONS ARE HELPFUL AND DENIES MED SIDE EFFECTS AT THIS TIME. FALL RISK SCREENING: SCREENING :ONE FALL WITH INJURY IN THE PAST YEAR FALL DOWN AT [facility] AND WENT TO THE ER PAIN SCREENING: PATIENT HAS A COMPLAINT OF ACUTE OR CHRONIC PAIN :YES LOCATION OF PAIN:LOW BACK INTENSITY OF PAIN (SCALE OF 1 TO 10):5 WHAT DOES YOUR PAIN FEEL LIKE:ACHING, BURNING, STABBING DURATION:CONTINOUS, CONSTANT, ALL DAY PAIN IS INCREASED BY:ACTIVITIES, PROLONGED STANDING, OTHERS LAY DOWN AND SITTING TOO LONG PAIN IS DECREASED BY:USE OF PAIN MEDICATIONS TREATMENT/MEDICATIONS USED TO MANAGE PAIN:OPIOIDS LEVEL OF RELIEF FROM PAIN TREATMENTS IN THE PAST:50% PAIN HAS INTERFERED WITH THE FOLLOWING:BATHING/DRESSING, WALKING ABILITY, SLEEP NURSING NOTE: -. PAIN CENTER INTAKE QUESTIONS: DO YOU HAVE A HISTORY OF MRSA? :NO DO YOU TAKE A BLOOD THINNERS? :YES ASA 81MG DO YOU HAVE ANY BLEEDING DISORDERS? :NO ANY NEW NUMBNESS OR WEAKNESS IN YOUR LEGS OR ARMS? :NO ANY PACEMAKER,DEFIBRILLATOR, OR DORSAL COLUMN STIMULATOR? :NO DO YOU HAVE ANY RASHES OR OPEN SORES? :NO ARE YOU ALLERGIC TO IV DYE? :NO ARE YOU DIABETIC? :NO ANY NEW PROBLEMS WITH YOUR MEDICATIONS? :NO HAVE YOU RECEIVED A VACCINE IN THE PAST 30 DAYS? :NO DO YOU PLAN TO RECEIVE A VACCINE IN THE NEXT 21 DAYS? :YES IF SO WHAT VACCINE AND WHEN? FLU SHOT, EDUCATED PT REGARDING SCHEDULING FLU SHOT 3 WEEKS BEFORE OR AFTER PROCEDURE DO YOU NEED ANY PRESCRIPTION? :YES GABAPENTIN AND TIZANIDINE DO YOU TAKE ANY IMMUNOSUPPRESSIVE MEDICATIONS? :NO IS THERE A CHANCE YOU COULD BE ? :NO ARE YOU BREAST FEEDING? :NO CURRENT MEDICATIONS TAKING VITAMIN D (ERGOCALCIFEROL) 46855 UNIT CAPSULE 1 CAPSULE ORALLY WEEKLY, NOTES: PT STATES HASN'T HAD IN A FEW MONTHS 3/17/20 TAKING ZIPRASIDONE HCL 60 MG CAPSULE 1 CAPSULE WITH FOOD ORALLY TWICE A DAY TAKING AMITRIPTYLINE HCL 50 MG TABLET 1 TABLET ORALLY ONCE A DAY TAKING VOLTAREN 1 % GEL DIRECTED TRANSDERMAL DAILY TAKING ONE TOUCH/ONE TOUCH II STARTER - KIT DX;E11.9 IN VITRO FOUR TIMES DAILY TAKING MAY HAVE - - FREE STYLE LITE TEST STRIPS DIRECTED FOUR TIMES DAILY (E11.9) TAKING ASPIRIN 81 MG TABLET CHEWABLE 1 TABLET ORALLY ONCE A DAY TAKING WELLBUTRIN SR 150 MG TABLET EXTENDED RELEASE 12 HOUR 1 TABLET IN THE MORNING ORALLY ONCE A DAY TAKING LEVOCETIRIZINE DIHYDROCHLORIDE 5 MG TABLET 1 TABLET IN THE EVENING ORALLY ONCE A DAY TAKING KLONOPIN 0.5 MG TABLET 1 TABLET AT BEDTIME ORALLY ONCE A DAY, MDD=1 TAKING HYDROXYZINE HCL 25 MG TABLET 1 TABLET NEEDED ORALLY EVERY 6 HRS TAKING OLANZAPINE 5 MG TABLET 1 TABLET ORALLY ONCE A DAY TAKING PANTOPRAZOLE SODIUM 40 MG TABLET DELAYED RELEASE 1 TABLET ORALLY TWICE DAILY TAKING TRAZODONE HCL 50 MG TABLET 1 TABLET AT BEDTIME NEEDED ORALLY ONCE A DAY TAKING TIZANIDINE HCL 4 MG TABLET 1 TABLET NEEDED ORALLY THREE TIMES A DAY TAKING TRAMADOL HCL 50 MG TABLET 1 TABLET NEEDED ORALLY EVERY 6 HRS PRN PAIN MDD=4 MEDICATION LIST REVIEWED AND RECONCILED WITH THE PATIENT PAST MEDICAL HISTORY HIGH CHOLESTEROL AND TRIGLYSORIDES ANXIETY, DEPRESSION AND PTSD BIPOLAR DEPRESSION IN HX [place] GASTRIC BYPASS LOW BACK PAIN GERD GASTROPARESIS ARTHRITIS HIATAL HERNIA RECTOCELE ABNORMAL UTERINE BLEEDING NSTEMI HTN ALLERGIES TAPE: RASH - ALLERGY PENICILLIN (FOR ALLERGIES USE ONLY): RASH - ALLERGY SOCIAL HISTORY GENERAL: TOBACCO USE ARE YOU A:FORMER SMOKER HOW LONG HAS IT BEEN SINCE YOU LAST SMOKED?1-5 YEARS LATEX QUESTIONNAIRE LATEX ALLERGY : HAVE YOU EVER DEVELOPED ANY TYPE OF REACTION AFTER HANDLING LATEX PRODUCTS SUCH RUBBER GLOVES, CONDOMS, DIAPHRAGMS, BALLOONS, SOCKS, OR UNDERWEAR?YES REACTION TO TAPE IF ON TOO LONG LATEX ALLERGY : HAVE YOU EVER DEVELOPED ANY TYPE OF REACTION DURING OR AFTER DENTAL APPOINTMENT, VAGINAL/RECTAL EXAMINATION, SURGICAL PROCEDURE, OR ANY OTHER EXPOSURE?NO LATEX RISK : HAVE YOU EVER HAD ANY DIFFICULTY BREATHING OR HIVES AFTER EATING OR HANDLING ANY FRUITS, OR VEGETABLES; SUCH KIWI, BANANAS, STONE FRUITS, OR CHESTNUTSNO LATEX RISK : DO YOU HAVE A PREVIOUS PERSONAL HISTORY OF MORE THAN NINE SURGERIES, SPINA BIFIDA, OR REPEATED CATHERIZATIONS? NO LATEX RISK : ARE YOU FREQUENTLY EXPOSED TO LATEX PRODUCTS IN YOUR OCCUPATION?NO DATE ASKED : 10/07/2020 ALCOHOL USE: NO. ALCOHOL SCREENING DID YOU HAVE A DRINK CONTAINING ALCOHOL IN THE PAST YEAR?NO POINTS0 INTERPRETATIONNEGATIVE RECREATIONAL DRUG USE DRUG USE?YES HOW OFTEN AND HOW MUCH? 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 MARITAL STATUS: . OTHERS AT HOME: 3 DGTRS AND BOYFRIEND AND CAT. - PFS REFERRAL NEEDED?NO CLERGY REFERRAL NEEDED?NO PUBLIC HEALTH REFERRAL NEEDED?NO WAS THE PROVIDER NOTIFIED OF ANY PERTINENT INFO?YES N/A HAS THE PATIENT BEEN EDUCATED REGARDING HIS/HER PLAN OF CARE?YES HAS THE PATIENT BEEN EDUCATED REGARDING PAIN, THE RISK FOR PAIN, THE IMPORTANCE OF EFFECTIVE PAIN MANAGEMENT, AND THE PAIN ASSESSMENT PROCESS?YES ADVANCE DIRECTIVE ADVANCE DIRECTIVE DISCUSSED WITH PATIENT:YES PT DOES NOT HAVE ANY ADVANCED DIRECTIVES AND SHE DECLINES INFORMATION ON HCP AT THIS TIME. REVIEW OF SYSTEMS CONSTITUTIONAL: ANY RECENT FEVER NO . CHILLS NO . WEIGHT CHANGE OF UNKNOWN REASONS NO . GASTROENTEROLOGY: NEW UNEXPLAINABLE CHANGES IN BOWEL CONTROL NO . CONSTIPATION NO . GENITOURINARY: ANY NEW CHANGE IN BLADDER CONTROL? NO . NEUROLOGY: NEW ONSET DIZZINESS OR NEUROLOGICAL CHANGES NOT MENTIONED NO . NEW NUMBNESS OR PAIN PATTERNS NOT MENTIONED AND PERTINENT TO TODAY'S VISIT NO . CARDIOLOGY: NEW CHEST PRESSURE NO . NEW CHEST PAIN NO . RESPIRATORY: UNEXPLAINABLE COUGH NO . NEW SHORTNESS OF BREATH NO . VITAL SIGNS WT 182 LBS, HT 67 IN, BMI 28.50 INDEX, BP 130/88 MM HG, HR 80 /MIN, RR 18 /MIN, TEMP 97.9 F, OXYGEN SAT % 98, SAFE IN ENV? (Y/N) YEST.UNA LANDIS. EXAMINATION GENERAL EXAMINATION: GENERALNO ACUTE DISTRESS, WELL NOURISHED AND HYDRATED. PSYCHAPPROPRIATE MOOD AND AFFECT . LUNGS:CLEAR TO AUSCULTATION BILATERALLY, NO WHEEZES, RHONCHI, RALES. HEART:NO MURMURS, REGULAR RATE AND RHYTHM. 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 GIVEN PRESENTING SYMPTOMS RECOMMEND FOLLOW-UP IN 3 MONTHS. PATIENT HAS EXPRESSED UNDERSTANDING OF AND WAS IN AGREEMENT WITH TREATMENT PLAN. GIVEN TIME TO ASK QUESTIONS AND EXPRESS CONCERNS. , ISTOP REGISTRY REVIEWED AND DEMONSTRATES COMPLLIANCE. (REF # [id number] ) BRINGS IN MEDICATIONS WHICH IS APPROPRIATE FOR WHAT WAS DISPENSED. RECENT URINE TOXICOLOGY REVIEWED. NO UNAUTHORIZED MEDICATIONS. NO ILLICIT SUBSTANCES AND PRESCRIBED MEDICATIONS WERE PRESENT. PROCEDURE CODES FA211 ESTABILISHED PATIENT [facility] CHARGE DISPOSITION & COMMUNICATION FOLLOW UP 3 MONTHS (REASON: BACK PAIN) ELECTRONICALLY SIGNED BY LAKHWINDER DARBY ON 10/08/2020 AT 09:47 AM EST DISCLAIMER : THIS IS A VISIT SUMMARY EXTRACTED FROM THE [email or web address] CHART. IT IS NOT A COPY OF THE [email or web address] PROGRESS NOTE. YONI
== END ==
LOC: M PAIN 10:00
PROVIDERS: ATTEND Family Medicine
DX: M96.1 Postlaminectomy syndrome, not elsewhere classified (principal); E78.2 Mixed hyperlipidemia; F41.9 Anxiety disorder, unspecified; F31.9 Bipolar disorder, unspecified; F43.10 Post-traumatic stress disorder, unspecified; I25.2 Old myocardial infarction; K21.9 Gastro-esophageal reflux disease without esophagitis; K44.9 Diaphragmatic hernia without obstruction or gangrene; I10 Essential (primary) hypertension; Z87.891 Personal history of nicotine dependence; Z79.82 Long term (current) use of aspirin; Z79.891 Long term (current) use of opiate analgesic; Z79.899 Other long term (current) drug therapy; Z88.0 Allergy status to penicillin; Z91.048 Other nonmedicinal substance allergy status

== ENCOUNTER → 2021-01-05 | Outpatient (CLI) | payer OTHER ==
[~2021-01-05] MED LIST changes: +ASPI-569 PO; -ASPI81TAEC PO; +BUPR150T12 PO; -BUPR150T4 PO
--- NOTE | 2021-01-07 05:49 | ECWPNPC ---
PATIENT NAME: DULCE CHOWDHURY : 1975 GENDER: FEMALE VISIT DATE: 01/05/2021 DISCHARGE DATE: 01/05/21 1033 VISIT LOCKED DATE TIME: PHYSICIAN: JIMBO VARGAS PHYSICIAN PAGER NO: ACTIVE RESOURCE: JIMBO VARGAS REASON FOR APPOINTMENT 1. BACK PAIN HISTORY OF PRESENT ILLNESS GENERAL: -45-YEAR-OLD FEMALE IN FOR CHRONIC PAIN FOLLOW-UP. SHE RATES HER PAIN CURRENTLY AT A 4 OUT OF 10 AND DESCRIBES IT BURNING. PATIENT FEELS HER MEDICATIONS ARE HELPFUL AND DENIES MED SIDE EFFECTS AT THIS TIME. FALL RISK SCREENING: SCREENING FALL ONCE BEACUSE OF SEIZURE DID GO THE ER, DID NOT HURT HER SELF. PAIN SCREENING: PATIENT HAS A COMPLAINT OF ACUTE OR CHRONIC PAIN :YES LOCATION OF PAIN:LOW BACK PAIN GOES DOWN RIGHT LEG INTENSITY OF PAIN (SCALE OF 1 TO 10):4 WHAT DOES YOUR PAIN FEEL LIKE:BURNING DURATION:CONTINOUS, CONSTANT, ALL DAY PAIN IS INCREASED BY:ACTIVITIES, PROLONGED STANDING PAIN IS DECREASED BY:USE OF PAIN MEDICATIONS NURSING NOTE: -. PAIN CENTER INTAKE QUESTIONS: DO YOU HAVE A HISTORY OF MRSA? :NO DO YOU TAKE A BLOOD THINNERS? :YES ASA 81MG DO YOU HAVE ANY BLEEDING DISORDERS? :NO ANY NEW NUMBNESS OR WEAKNESS IN YOUR LEGS OR ARMS? :NO ANY PACEMAKER,DEFIBRILLATOR, OR DORSAL COLUMN STIMULATOR? :NO DO YOU HAVE ANY RASHES OR OPEN SORES? :YES A FEW ON BOTH HANDS ARE YOU ALLERGIC TO IV DYE? :NO ARE YOU DIABETIC? :NO ANY NEW PROBLEMS WITH YOUR MEDICATIONS? :NO HAVE YOU RECEIVED A VACCINE IN THE PAST 30 DAYS? :YES 1ST COVID SHOT 01/02/2021 DO YOU PLAN TO RECEIVE A VACCINE IN THE NEXT 21 DAYS? :YES 2ND COVID 02/01/2021 DO YOU NEED ANY PRESCRIPTION? :NO DO YOU TAKE ANY IMMUNOSUPPRESSIVE MEDICATIONS? :NO IS THERE A CHANCE YOU COULD BE ? :NO ARE YOU BREAST FEEDING? :NO CURRENT MEDICATIONS TAKING ZIPRASIDONE HCL 60 MG CAPSULE 1 CAPSULE WITH FOOD ORALLY TWICE A DAY TAKING AMITRIPTYLINE HCL 25 MG TABLET 1 TABLET ORALLY ONCE A DAY TAKING ONE TOUCH/ONE TOUCH II STARTER - KIT DX;E11.9 IN VITRO FOUR TIMES DAILY TAKING MAY HAVE - - FREE STYLE LITE TEST STRIPS DIRECTED FOUR TIMES DAILY (E11.9) TAKING ASPIRIN 81 MG TABLET CHEWABLE 1 TABLET ORALLY ONCE A DAY TAKING WELLBUTRIN SR 100 MG TABLET EXTENDED RELEASE 12 HOUR 1 TABLET IN THE MORNING ORALLY ONCE A DAY TAKING HYDROXYZINE HCL 25 MG TABLET 1 TABLET NEEDED ORALLY EVERY 6 HRS TAKING OLANZAPINE 5 MG TABLET 1 TABLET ORALLY PRN TAKING PANTOPRAZOLE SODIUM 40 MG TABLET DELAYED RELEASE 1 TABLET ORALLY TWICE DAILY TAKING LEVOCETIRIZINE DIHYDROCHLORIDE 5 MG TABLET 1 TABLET IN THE EVENING ORALLY ONCE A DAY TAKING PRAZOSIN HCL 2 MG CAPSULE 1 CAPSULE AT BEDTIME ORALLY ONCE A DAY TAKING KLONOPIN 0.5 MG TABLET 1/2 TABLET AT BEDTIME ORALLY ONCE A DAY, MDD=1 TAKING TIZANIDINE HCL 4 MG TABLET 1/2 TABLET ORALLY QHS TAKING TRAMADOL HCL 50 MG TABLET 1 TABLET NEEDED ORALLY EVERY 6 HRS PRN PAIN MDD=4 NOT-TAKING VITAMIN D (ERGOCALCIFEROL) 93708 UNIT CAPSULE 1 CAPSULE ORALLY WEEKLY, NOTES: PT STATES HASN'T HAD IN A FEW MONTHS 11/26/19 MEDICATION LIST REVIEWED AND RECONCILED WITH THE PATIENT PAST MEDICAL HISTORY HIGH CHOLESTEROL AND TRIGLYSORIDES ANXIETY, DEPRESSION AND PTSD BIPOLAR DEPRESSION IN HX [place] GASTRIC BYPASS LOW BACK PAIN GERD GASTROPARESIS ARTHRITIS HIATAL HERNIA RECTOCELE ABNORMAL UTERINE BLEEDING NSTEMI HTN ALLERGIES TAPE: RASH - ALLERGY PENICILLIN (FOR ALLERGIES USE ONLY): RASH - ALLERGY SOCIAL HISTORY GENERAL: TOBACCO USE ARE YOU A:FORMER SMOKER HOW LONG HAS IT BEEN SINCE YOU LAST SMOKED?1-5 YEARS LATEX QUESTIONNAIRE LATEX ALLERGY : HAVE YOU EVER DEVELOPED ANY TYPE OF REACTION AFTER HANDLING LATEX PRODUCTS SUCH RUBBER GLOVES, CONDOMS, DIAPHRAGMS, BALLOONS, SOCKS, OR UNDERWEAR?YES REACTION TO TAPE IF ON TOO LONG LATEX ALLERGY : HAVE YOU EVER DEVELOPED ANY TYPE OF REACTION DURING OR AFTER DENTAL APPOINTMENT, VAGINAL/RECTAL EXAMINATION, SURGICAL PROCEDURE, OR ANY OTHER EXPOSURE?NO LATEX RISK : HAVE YOU EVER HAD ANY DIFFICULTY BREATHING OR HIVES AFTER EATING OR HANDLING ANY FRUITS, OR VEGETABLES; SUCH KIWI, BANANAS, STONE FRUITS, OR CHESTNUTSNO LATEX RISK : DO YOU HAVE A PREVIOUS PERSONAL HISTORY OF MORE THAN NINE SURGERIES, SPINA BIFIDA, OR REPEATED CATHERIZATIONS? NO LATEX RISK : ARE YOU FREQUENTLY EXPOSED TO LATEX PRODUCTS IN YOUR OCCUPATION?NO DATE ASKED : 01/05/2021 ALCOHOL USE: YES OCC. ALCOHOL SCREENING DID YOU HAVE A DRINK CONTAINING ALCOHOL IN THE PAST YEAR?NO POINTS0 INTERPRETATIONNEGATIVE RECREATIONAL DRUG USE DRUG USE?YES HOW OFTEN AND HOW MUCH? 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 MARITAL STATUS: . OTHERS AT HOME: 3 DGTRS AND BOYFRIEND AND CAT. - PFS REFERRAL NEEDED?NO CLERGY REFERRAL NEEDED?NO PUBLIC HEALTH REFERRAL NEEDED?NO WAS THE PROVIDER NOTIFIED OF ANY PERTINENT INFO?YES N/A HAS THE PATIENT BEEN EDUCATED REGARDING HIS/HER PLAN OF CARE?YES HAS THE PATIENT BEEN EDUCATED REGARDING PAIN, THE RISK FOR PAIN, THE IMPORTANCE OF EFFECTIVE PAIN MANAGEMENT, AND THE PAIN ASSESSMENT PROCESS?YES ADVANCE DIRECTIVE ADVANCE DIRECTIVE DISCUSSED WITH PATIENT:YES PT DOES NOT HAVE ANY ADVANCED DIRECTIVES AND SHE DECLINES INFORMATION ON HCP AT THIS TIME. REVIEW OF SYSTEMS CONSTITUTIONAL: ANY RECENT FEVER NO . CHILLS NO . WEIGHT CHANGE OF UNKNOWN REASONS NO . GASTROENTEROLOGY: NEW UNEXPLAINABLE CHANGES IN BOWEL CONTROL NO . CONSTIPATION NO . GENITOURINARY: ANY NEW CHANGE IN BLADDER CONTROL? NO . NEUROLOGY: NEW ONSET DIZZINESS OR NEUROLOGICAL CHANGES NOT MENTIONED NO . NEW NUMBNESS OR PAIN PATTERNS NOT MENTIONED AND PERTINENT TO TODAY'S VISIT NO . CARDIOLOGY: NEW CHEST PRESSURE NO . PATIENT DENIES NO . RESPIRATORY: UNEXPLAINABLE COUGH NO . NEW SHORTNESS OF BREATH NO . VITAL SIGNS WT 189.6 LBS, HT 67 IN, BMI 29.69 INDEX, BP 138/82 MM HG, HR 76 /MIN, RR 18 /MIN, TEMP 97.0 F, OXYGEN SAT % 100%, SAFE IN ENV? (Y/N) YES, NA INITIALS AW 1005T.ALEIDA LANDIS. EXAMINATION GENERAL EXAMINATION: GENERALNO ACUTE DISTRESS, WELL NOURISHED AND HYDRATED. PSYCHAPPROPRIATE MOOD AND AFFECT . LUNGS:CLEAR TO AUSCULTATION BILATERALLY, NO WHEEZES, RHONCHI, RALES. HEART:NO MURMURS, REGULAR RATE AND RHYTHM. 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 GIVEN PRESENTING SYMPTOMS RECOMMENDED CONTINUATION OF CURRENT MEDICATION REGIMEN WITH FOLLOW-UP IN 3 MONTHS. PATIENT HAS EXPRESSED UNDERSTANDING OF WAS IN AGREEMENT WITH TREATMENT PLAN. GIVEN TIME TO ASK QUESTIONS AND EXPRESS CONCERNS. , ISTOP REGISTRY REVIEWED AND DEMONSTRATES COMPLLIANCE. (REF # [id number] ) BRINGS IN MEDICATIONS WHICH IS APPROPRIATE FOR WHAT WAS DISPENSED. RECENT URINE TOXICOLOGY REVIEWED. NO UNAUTHORIZED MEDICATIONS. NO ILLICIT SUBSTANCES AND PRESCRIBED MEDICATIONS WERE PRESENT. PROCEDURE CODES FA211 ESTABILISHED PATIENT [facility] CHARGE DISPOSITION & COMMUNICATION FOLLOW UP 3 MONTHS (REASON: BACK PAIN ) ELECTRONICALLY SIGNED BY LAKHWINDER DARBY ON 01/06/2021 AT 08:58 AM EDT DISCLAIMER : THIS IS A VISIT SUMMARY EXTRACTED FROM THE [employer] CHART. IT IS NOT A COPY OF THE [employer] PROGRESS NOTE. YONI
== END ==
LOC: M PAIN 10:00
PROVIDERS: ATTEND Family Medicine
DX: M96.1 Postlaminectomy syndrome, not elsewhere classified (principal); Z79.891 Long term (current) use of opiate analgesic; E78.2 Mixed hyperlipidemia; F41.9 Anxiety disorder, unspecified; F32.9 Major depressive disorder, single episode, unspecified; F43.10 Post-traumatic stress disorder, unspecified; M54.5 Low back pain; K21.9 Gastro-esophageal reflux disease without esophagitis; K31.84 Gastroparesis; K44.9 Diaphragmatic hernia without obstruction or gangrene; I10 Essential (primary) hypertension; I25.2 Old myocardial infarction; Z87.891 Personal history of nicotine dependence; Z79.82 Long term (current) use of aspirin; Z79.899 Other long term (current) drug therapy; Z88.0 Allergy status to penicillin; Z91.048 Other nonmedicinal substance allergy status

== ENCOUNTER → 2021-04-06 | Outpatient (CLI) | payer OTHER ==
[~2021-04-06] MED LIST changes: +OLAN1TAB16 PO; -OLAN5TAB PO
--- NOTE | 2021-04-08 05:00 | ECWPNPC ---
PATIENT NAME: DULCE CHOWDHURY : 1975 GENDER: FEMALE VISIT DATE: 04/06/2021 DISCHARGE DATE: 04/06/21 1047 VISIT LOCKED DATE TIME: PHYSICIAN: JIMBO VARGAS PHYSICIAN PAGER NO: ACTIVE RESOURCE: JIMBO VARGAS REASON FOR APPOINTMENT 1. BACK PAIN HISTORY OF PRESENT ILLNESS GENERAL: HPI 45-YEAR-OLD FEMALE IN FOR CHRONIC PAIN FOLLOW-UP. SHE FEELS HER MEDICATIONS ARE HELPFUL AND DENIES MED SIDE EFFECTS AT THIS TIME. SHE RATES HER PAIN CURRENTLY AT A 5 OUT OF 10.. - -. FALL RISK SCREENING: SCREENING TWO FALLS REPORTED IN THE LAST YEAR WITHOUT INJURY.. PAIN SCREENING: PATIENT HAS A COMPLAINT OF ACUTE OR CHRONIC PAIN :YES LOCATION OF PAIN:LOW BACK INTENSITY OF PAIN (SCALE OF 1 TO 10):5 WHAT DOES YOUR PAIN FEEL LIKE:ACHING, BURNING, INTERMITTENT DURATION:INTERMITTENT, AWAKENS FROM SLEEP PAIN IS INCREASED BY:ACTIVITIES, PROLONGED STANDING PAIN IS DECREASED BY:USE OF PAIN MEDICATIONS REPOSITIONING NURSING NOTE: - -. PAIN CENTER INTAKE QUESTIONS: DO YOU HAVE A HISTORY OF MRSA? :NO DO YOU TAKE A BLOOD THINNERS? :NO DO YOU HAVE ANY BLEEDING DISORDERS? :NO ANY NEW NUMBNESS OR WEAKNESS IN YOUR LEGS OR ARMS? :NO ANY PACEMAKER,DEFIBRILLATOR, OR DORSAL COLUMN STIMULATOR? :NO DO YOU HAVE ANY RASHES OR OPEN SORES? :NO ARE YOU ALLERGIC TO IV DYE? :NO ARE YOU DIABETIC? :NO ANY NEW PROBLEMS WITH YOUR MEDICATIONS? :NO HAVE YOU RECEIVED A VACCINE IN THE PAST 30 DAYS? :NO DO YOU PLAN TO RECEIVE A VACCINE IN THE NEXT 21 DAYS? :NO DO YOU NEED ANY PRESCRIPTION? :NO DO YOU TAKE ANY IMMUNOSUPPRESSIVE MEDICATIONS? :NO DO YOU HAVE ANY KIDNEY OR LIVER DISEASE? :NO IS THERE A CHANCE YOU COULD BE ? :NO ARE YOU BREAST FEEDING? :NO CURRENT MEDICATIONS TAKING ZIPRASIDONE HCL 60 MG CAPSULE 1 CAPSULE WITH FOOD ORALLY TWICE A DAY TAKING AMITRIPTYLINE HCL 25 MG TABLET 1 TABLET ORALLY ONCE A DAY TAKING ONE TOUCH/ONE TOUCH II STARTER - KIT DX;E11.9 IN VITRO FOUR TIMES DAILY TAKING MAY HAVE - - FREE STYLE LITE TEST STRIPS DIRECTED FOUR TIMES DAILY (E11.9) TAKING ASPIRIN 81 MG TABLET CHEWABLE 1 TABLET ORALLY ONCE A DAY TAKING WELLBUTRIN SR 100 MG TABLET EXTENDED RELEASE 12 HOUR 1 TABLET IN THE MORNING ORALLY ONCE A DAY TAKING OLANZAPINE 5 MG TABLET 1 TABLET ORALLY PRN TAKING PRAZOSIN HCL 2 MG CAPSULE 1 CAPSULE AT BEDTIME ORALLY ONCE A DAY TAKING KLONOPIN 0.5 MG TABLET 1/2 TABLET AT BEDTIME ORALLY ONCE A DAY, MDD=1, NOTES: HAS NOT BEEN TAKING AT THIS TIME TAKING LEVOCETIRIZINE DIHYDROCHLORIDE 5 MG TABLET 1 TABLET IN THE EVENING ORALLY ONCE A DAY TAKING PANTOPRAZOLE SODIUM 40 MG TABLET DELAYED RELEASE 1 TABLET ORALLY TWICE DAILY TAKING TIZANIDINE HCL 4 MG TABLET 1/2 TABLET ORALLY QHS TAKING TRAMADOL HCL 50 MG TABLET 1 TABLET NEEDED ORALLY EVERY 6 HRS PRN PAIN MDD=4 TAKING ATORVASTATIN CALCIUM 10 MG TABLET 1 TABLET ORALLY ONCE A DAY, NOTES: DOSAGE UNKNOWN AT THIS TIME NOT-TAKING HYDROXYZINE HCL 25 MG TABLET 1 TABLET NEEDED ORALLY EVERY 6 HRS NOT-TAKING VITAMIN D (ERGOCALCIFEROL) 34216 UNIT CAPSULE 1 CAPSULE ORALLY WEEKLY, NOTES: PT STATES HASN'T HAD IN A FEW MONTHS 11/26/19 MEDICATION LIST REVIEWED AND RECONCILED WITH THE PATIENT PAST MEDICAL HISTORY HIGH CHOLESTEROL AND TRIGLYSORIDES ANXIETY, DEPRESSION AND PTSD BIPOLAR DEPRESSION IN HX [place] GASTRIC BYPASS LOW BACK PAIN GERD GASTROPARESIS ARTHRITIS HIATAL HERNIA RECTOCELE ABNORMAL UTERINE BLEEDING NSTEMI HTN ALLERGIES TAPE: RASH - ALLERGY PENICILLIN (FOR ALLERGIES USE ONLY): RASH - ALLERGY SOCIAL HISTORY GENERAL: TOBACCO USE ARE YOU A:FORMER SMOKER HOW LONG HAS IT BEEN SINCE YOU LAST SMOKED?1-5 YEARS LATEX QUESTIONNAIRE LATEX ALLERGY : HAVE YOU EVER DEVELOPED ANY TYPE OF REACTION AFTER HANDLING LATEX PRODUCTS SUCH RUBBER GLOVES, CONDOMS, DIAPHRAGMS, BALLOONS, SOCKS, OR UNDERWEAR?YES REACTION TO TAPE IF ON TOO LONG LATEX ALLERGY : HAVE YOU EVER DEVELOPED ANY TYPE OF REACTION DURING OR AFTER DENTAL APPOINTMENT, VAGINAL/RECTAL EXAMINATION, SURGICAL PROCEDURE, OR ANY OTHER EXPOSURE?NO LATEX RISK : HAVE YOU EVER HAD ANY DIFFICULTY BREATHING OR HIVES AFTER EATING OR HANDLING ANY FRUITS, OR VEGETABLES; SUCH KIWI, BANANAS, STONE FRUITS, OR CHESTNUTSNO LATEX RISK : DO YOU HAVE A PREVIOUS PERSONAL HISTORY OF MORE THAN NINE SURGERIES, SPINA BIFIDA, OR REPEATED CATHERIZATIONS? NO LATEX RISK : ARE YOU FREQUENTLY EXPOSED TO LATEX PRODUCTS IN YOUR OCCUPATION?NO DATE ASKED : 04/06/2021 ALCOHOL USE: YES OCC. ALCOHOL SCREENING DID YOU HAVE A DRINK CONTAINING ALCOHOL IN THE PAST YEAR?NO POINTS0 INTERPRETATIONNEGATIVE RECREATIONAL DRUG USE DRUG USE?YES HOW OFTEN AND HOW MUCH? 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 MARITAL STATUS: . OTHERS AT HOME: 3 DGTRS AND BOYFRIEND AND CAT. - PFS REFERRAL NEEDED?NO CLERGY REFERRAL NEEDED?NO PUBLIC HEALTH REFERRAL NEEDED?NO WAS THE PROVIDER NOTIFIED OF ANY PERTINENT INFO?YES N/A HAS THE PATIENT BEEN EDUCATED REGARDING HIS/HER PLAN OF CARE?YES HAS THE PATIENT BEEN EDUCATED REGARDING PAIN, THE RISK FOR PAIN, THE IMPORTANCE OF EFFECTIVE PAIN MANAGEMENT, AND THE PAIN ASSESSMENT PROCESS?YES ADVANCE DIRECTIVE ADVANCE DIRECTIVE DISCUSSED WITH PATIENT:YES PT DOES NOT HAVE ANY ADVANCED DIRECTIVES AND SHE DECLINES INFORMATION ON HCP AT THIS TIME. REVIEW OF SYSTEMS CONSTITUTIONAL: ANY RECENT FEVER NO . CHILLS NO . WEIGHT CHANGE OF UNKNOWN REASONS NO . GASTROENTEROLOGY: NEW UNEXPLAINABLE CHANGES IN BOWEL CONTROL NO . CONSTIPATION NO . GENITOURINARY: ANY NEW CHANGE IN BLADDER CONTROL? NO . NEUROLOGY: NEW ONSET DIZZINESS OR NEUROLOGICAL CHANGES NOT MENTIONED NO . NEW NUMBNESS OR PAIN PATTERNS NOT MENTIONED AND PERTINENT TO TODAY'S VISIT NO . CARDIOLOGY: NEW CHEST PRESSURE NO . PATIENT DENIES NO . RESPIRATORY: UNEXPLAINABLE COUGH NO . NEW SHORTNESS OF BREATH NO . VITAL SIGNS WT 193 LBS, HT 67 IN, BMI 30.22 INDEX, BP 124/75 MM HG, HR 70 /MIN, RR 18 /MIN, TEMP 98.7 F, OXYGEN SAT % 98%, SAFE IN ENV? (Y/N) YES, NA INITIALS SC 10:20, REVIEWED BY: REMEDIOS GODOY MA. EXAMINATION GENERAL EXAMINATION: GENERALNO ACUTE DISTRESS, WELL NOURISHED AND HYDRATED. PSYCHAPPROPRIATE MOOD AND AFFECT . LUNGS:CLEAR TO AUSCULTATION BILATERALLY, NO WHEEZES, RHONCHI, RALES. HEART:NO MURMURS, REGULAR RATE AND RHYTHM. ASSESSMENTS CERVICAL DISC DISORDER AT C5-C6 LEVEL WITH RADICULOPATHY - M50.122 (PRIMARY) TREATMENT CERVICAL DISC DISORDER AT C5-C6 LEVEL WITH RADICULOPATHY NOTES: 45-YEAR-OLD FEMALE IN FOR CHRONIC PAIN FOLLOW-UP. GIVEN PRESENTING SYMPTOMS RECOMMEND CONTINUATION OF CURRENT MEDICATION REGIMEN WITH FOLLOW-UP IN 3 MONTHS. PATIENT HAS EXPRESSED UNDERSTANDING OF AND WAS IN AGREEMENT WITH TREATMENT PLAN. GIVEN TIME TO ASK QUESTIONS AND EXPRESS CONCERNS. [employer] REGISTRY REVIEWED AND DEMONSTRATES COMPLLIANCE. (REF # [id number]) BRINGS IN MEDICATIONS WHICH IS APPROPRIATE FOR WHAT WAS DISPENSED. RECENT URINE TOXICOLOGY REVIEWED. NO UNAUTHORIZED MEDICATIONS. NO ILLICIT SUBSTANCES AND PRESCRIBED MEDICATIONS WERE PRESENT. PROCEDURE CODES [id number] ESTABILISHED PATIENT [facility] FACILITY CHARGE DISPOSITION & COMMUNICATION FOLLOW UP 3 MONTHS (REASON: NECK PAIN) ELECTRONICALLY SIGNED BY LAKHWINDER DARBY ON 04/07/2021 AT 08:21 AM EDT DISCLAIMER : THIS IS A VISIT SUMMARY EXTRACTED FROM THE [employer] CHART. IT IS NOT A COPY OF THE [employer] PROGRESS NOTE. YONI
== END ==
LOC: M PAIN 10:00
PROVIDERS: ATTEND Family Medicine
DX: M50.122 Cervical disc disorder at C5-C6 level with radiculopathy (principal); E78.2 Mixed hyperlipidemia; F41.9 Anxiety disorder, unspecified; F32.9 Major depressive disorder, single episode, unspecified; F43.10 Post-traumatic stress disorder, unspecified; I25.2 Old myocardial infarction; M54.5 Low back pain; K21.9 Gastro-esophageal reflux disease without esophagitis; K44.9 Diaphragmatic hernia without obstruction or gangrene; I10 Essential (primary) hypertension; Z87.891 Personal history of nicotine dependence; Z98.84 Bariatric surgery status; Z79.82 Long term (current) use of aspirin; Z79.891 Long term (current) use of opiate analgesic; Z79.899 Other long term (current) drug therapy; Z88.0 Allergy status to penicillin; Z91.048 Other nonmedicinal substance allergy status

== ENCOUNTER 2021-05-27 11:30 | Emergency (ER) | payer MEDICAID, OTHER, SELFPAY ==
[~2021-05-27] VITALS: Ht 170.2 cm; Wt 95.5 kg
[2021-05-27 12:13] LABS: BASO % 0.7 % (0.0-1.0); EOS # 0.1 10^3/uL (0.0-0.5); EOS % 2.7 % (0.0-3.0); HEMATOCRIT 35.8 % (36.0-47.0); HEMOGLOBIN 11.2 g/dl (12.0-15.5); LYMPH # 1.2 10^3/uL (1.5-5.0); LYMPH % 26.7 % (24.0-44.0); MEAN CORPUSCULAR HGB CONC 31.3 g/dl (32.0-36.5); MEAN CORPUSCULAR VOLUME 83.1 fl (80.0-96.0); MONO # 0.4 10^3/uL (0.0-0.8); MONO % 8.1 % (2.0-8.0); NEUTROPHILS # 2.7 10^3/uL (1.5-8.5); NEUTROPHILS % 61.6 % (36.0-66.0); PLATELET COUNT, AUTOMATED 214 10^3/uL (150-450); RED BLOOD COUNT 4.31 10^6/uL (4.00-5.40); WHITE BLOOD COUNT 4.5 10^3/uL (4.0-10.0)
--- NOTE | 2021-05-27 12:53 | REPVR ---
PROCEDURE INFORMATION: Exam: CT Head Without Contrast Exam date and time: 05/27/2021 12:34 PM Age: 46 years old Clinical indication: Other: Seizure TECHNIQUE: Imaging protocol: Computed tomography of the head without contrast. Radiation optimization: All CT scans at this facility use at least one of these dose optimization techniques: automated exposure control; mA and/or kV adjustment per patient size (includes targeted exams where dose is matched to clinical indication); or iterative reconstruction. COMPARISON: CT Head without contrast 10/02/2020 11:53 PM FINDINGS: Brain: Normal. No hemorrhage. Unremarkable white matter. No mass effect. Cerebral ventricles: No ventriculomegaly. Paranasal sinuses: Visualized sinuses are unremarkable. No fluid levels. Mastoid air cells: Visualized mastoid air cells are well aerated. Bones/joints: Unremarkable. No acute fracture. Soft tissues: Unremarkable. IMPRESSION: No acute intracranial abnormality. Electronically signed by: Mona Martin On 05/27/2021 12:53:19 PM
--- NOTE | 2021-05-27 12:56 | REPVR ---
PROCEDURE INFORMATION: Exam: CT Cervical Spine Without Contrast Exam date and time: 05/27/2021 12:34 PM Age: 46 years old Clinical indication: Other: Seizure TECHNIQUE: Imaging protocol: Computed tomography images of the cervical spine without contrast. Radiation optimization: All CT scans at this facility use at least one of these dose optimization techniques: automated exposure control; mA and/or kV adjustment per patient size (includes targeted exams where dose is matched to clinical indication); or iterative reconstruction. COMPARISON: CT Spine,cervical w/o contrast 11/24/2019 3:25 PM FINDINGS: Bones/joints: No acute fracture. Normal alignment. Discs/Spinal canal/Neural foramina: No significant disc protrusion. No severe spinal canal stenosis. No significant neural foraminal narrowing. Lungs: Lung apices are normal. Soft tissues: Unremarkable. IMPRESSION: No acute findings. Electronically signed by: Mona Martin On 05/27/2021 12:56:30 PM
[2021-05-27 14:03] LABS: BLOOD UREA NITROGEN 6 MG/DL (7-18); CALCIUM LEVEL 8.1 MG/DL (8.5-10.1); CARBON DIOXIDE LEVEL 22 MEQ/L (21-32); CHLORIDE LEVEL 108 MEQ/L (98-107); CPK CREATINE PHOSPHOKINASE 242 U/L (26-192); CREATININE FOR GFR 0.72 MG/DL (0.55-1.30); GLOMERULAR FILTRATION RATE > 60.0 (>58); GLUCOSE, FASTING 87 MG/DL (70-100); POTASSIUM SERUM 3.8 MEQ/L (3.5-5.1); SODIUM LEVEL 139 MEQ/L (136-145)
[2021-05-27 14:26] LABS: BASO % 0.9 % (0.0-1.0); EOS # 0.1 10^3/uL (0.0-0.5); HEMOGLOBIN 11.3 g/dl (12.0-15.5); LYMPH # 1.2 10^3/uL (1.5-5.0); LYMPH % 27.2 % (24.0-44.0); MEAN CORPUSCULAR HEMOGLOBIN 26.3 pg (27.0-33.0); MEAN CORPUSCULAR HGB CONC 31.4 g/dl (32.0-36.5); MEAN CORPUSCULAR VOLUME 83.7 fl (80.0-96.0); MONO # 0.3 10^3/uL (0.0-0.8); MONO % 7.3 % (2.0-8.0); NEUTROPHILS # 2.7 10^3/uL (1.5-8.5); NEUTROPHILS % 61.4 % (36.0-66.0); PLATELET COUNT, AUTOMATED 226 10^3/uL (150-450); WHITE BLOOD COUNT 4.4 10^3/uL (4.0-10.0)
[2021-05-27 14:30] VITALS: BP 127/83
[2021-05-27 15:12] LABS: AMPHETAMINES LEVEL URINE NEGATIVE (NEGATIVE); BARBITURATES URINE NEGATIVE (NEGATIVE); BENZODIAZEPINES URINE NEGATIVE (NEGATIVE); CANNABINOIDS URINE POSITIVE (NEGATIVE); COCAINE METABOLITE URINE NEGATIVE (NEGATIVE); METHADONE URINE NEGATIVE (NEGATIVE); OPIATES URINE NEGATIVE (NEGATIVE); PHENCYCLIDINE URINE NEGATIVE (NEGATIVE)
--- NOTE | 2021-05-28 05:14 | ECGEPIP ---
[facility] - ED Test Date: 2021-05-27 Pat Name: DULCE CHOWDHURY Department: Room: - Gender: Female Processing Lead: ANNE : 1975 Requested By: Veronica Thomas Order Number: [id number] Reading MD: Stewart Lewis Measurements Intervals [place] Rate: 67 P: 51 NC: 190 QRS: 3 QRSD: 88 T: 30 QT: 410 QTc: 433 Interpretive Statements Normal sinus rhythm POOR R WAVE PROGRESSION SIMILAR TO 10/02/20 Electronically Signed on 05-28-2021 5:14:43 EDT by Stewart Lewis
== END 2021-05-27 14:55 | disposition home or self-care (01) ==
LOC: M ED 11:30 → EDBD 11:30 → M ED 14:55
DX: G40.909 Epilepsy, unspecified, not intractable, without status epilepticus (principal); I10 Essential (primary) hypertension; E78.5 Hyperlipidemia, unspecified; I25.10 Atherosclerotic heart disease of native coronary artery without angina pectoris; Z98.84 Bariatric surgery status; Z79.899 Other long term (current) drug therapy; Z79.82 Long term (current) use of aspirin; Z88.0 Allergy status to penicillin; Z91.048 Other nonmedicinal substance allergy status; F12.20 Cannabis dependence, uncomplicated

== ENCOUNTER → 2021-06-11 | Outpatient (REF) | payer OTHER | LOC: M SFHCPLAZ 15:51 | DX: D64.9 Anemia, unspecified (principal) ==

== ENCOUNTER → 2021-06-15 | Outpatient (CLI) | payer OTHER | LOC: M PAIN 10:00 | PROVIDERS: ATTEND Anesthesiology | DX: M96.1 Postlaminectomy syndrome, not elsewhere classified (principal); E78.2 Mixed hyperlipidemia; F41.9 Anxiety disorder, unspecified; F32.9 Major depressive disorder, single episode, unspecified; F43.10 Post-traumatic stress disorder, unspecified; I25.2 Old myocardial infarction; Z98.84 Bariatric surgery status; M54.50 Low back pain, unspecified; K21.9 Gastro-esophageal reflux disease without esophagitis; K44.9 Diaphragmatic hernia without obstruction or gangrene; I10 Essential (primary) hypertension; Z79.82 Long term (current) use of aspirin; Z79.899 Other long term (current) drug therapy ==

== ENCOUNTER → 2021-06-22 | Outpatient (CLI) | payer OTHER ==
[2021-06-22 09:37] LABS: HEMATOCRIT 35.1 % (36.0-47.0); MEAN CORPUSCULAR HEMOGLOBIN 26.5 pg (27.0-33.0); MEAN CORPUSCULAR HGB CONC 31.3 g/dl (32.0-36.5); MEAN CORPUSCULAR VOLUME 84.6 fl (80.0-96.0); PLATELET COUNT, AUTOMATED 205 10^3/uL (150-450); RED BLOOD COUNT 4.15 10^6/uL (4.00-5.40); WHITE BLOOD COUNT 3.5 10^3/uL (4.0-10.0)
[2021-06-22 10:08] LABS: PERCENT SATURATION 9.5 % (13.2-45.0)
== END ==
LOC: M LAB 08:37
PROVIDERS: ATTEND Family Medicine
DX: D64.9 Anemia, unspecified (principal)

== ENCOUNTER → 2021-06-30 | Outpatient (CLI) | payer OTHER ==
[~2021-06-30] MED LIST changes: +PROHANCE 279.3MG/ML 15ML VIAL ONE; +PROHANCE 279.3MG/ML 5ML VIAL ONE
--- NOTE | 2021-07-01 20:16 | REPVR ---
PROCEDURE INFORMATION: Exam: MR Lumbar Spine Without and With Contrast Exam date and time: 06/30/2021 1:28 PM Age: 46 years old Clinical indication: Low back pain; Prior surgery; Surgery date: 6+ months; Additional info: Lumbar post laminectomy syndrome TECHNIQUE: Imaging protocol: Multiplanar magnetic resonance images of the lumbar spine without and with intravenous contrast. Contrast material: PROHANCE; Contrast volume: 16 ml; Contrast route: INTRAVENOUS (IV); COMPARISON: MRI-Spine, L.S. without con 09/10/2016 10:46 AM FINDINGS: Chronic postoperative changes compatible with right L4 hemilaminectomy. Vertebral body heights are maintained. No abnormal marrow signal. No cord compression. No abnormal cord signal. Conus medullaris terminates at the L1 level. Paravertebral soft tissues are unremarkable. Anatomic horseshoe kidney. L1-L2: No significant canal or foraminal narrowing. L2-L3: No significant canal or foraminal narrowing. L3-L4: Broad-based disc bulge causes mild canal narrowing and mild bilateral foraminal narrowing. L4-L5: Broad-based disc bulge causes mild canal narrowing and mild bilateral foraminal narrowing. L5-S1: Facet hypertrophy causes mild left foraminal narrowing. No significant canal narrowing. Soft tissues: See "Vertebrae" finding. IMPRESSION: 1. Multilevel spondylotic changes of the lumbar spine, as detailed above. 2. Anatomic horseshoe kidney. Electronically signed by: Segundo Keith On 07/01/2021 20:15:45 PM
== END ==
LOC: M PLAIMG 12:32
PROVIDERS: ATTEND Anesthesiology
DX: M96.1 Postlaminectomy syndrome, not elsewhere classified (principal); M51.26 Other intervertebral disc displacement, lumbar region; M48.061 Spinal stenosis, lumbar region without neurogenic claudication
CPT/HCPCS: 72158; A9576

== ENCOUNTER → 2021-07-01 | Outpatient (CLI) | payer OTHER ==
[~2021-07-01] MED LIST changes: -PROHANCE 279.3MG/ML 15ML VIAL ONE; -PROHANCE 279.3MG/ML 5ML VIAL ONE
[2021-07-01 10:35] LABS: THYROID STIMULATING HORMONE 0.969 uIU/ML (0.358-3.740)
== END ==
LOC: M LAB 08:46
PROVIDERS: ATTEND Family Medicine
DX: K91.2 Postsurgical malabsorption, not elsewhere classified (principal)

== ENCOUNTER 2021-07-21 10:27 | Emergency (ER) | payer OTHER ==
[~2021-07-21] VITALS: Ht 170.2 cm; Wt 84.5 kg
--- OUTSIDE RECORDS SUMMARY | 2021-07-21 10:35 | CCD ---
Author Author Anne Tovar Organization Unknown Address [address] [address] Phone Care Team Providers Care Lathmaker Name Role Phone Loreta Tovar PCP Allergies, Adverse Reactions, Alerts Concept Allergy Name Reaction Severity Onset Date Status Documentation Date Phone Number Npid Taxonomy Code Taxonomy Desc Author Last Name Author [facility] Name Concept Type 665920 sertraline Irritability 11/25/2018 Active 09/26/2018 RXNORM 644426 penicillin v potassium urticaria (hives) 12/18/2015 Acti ve 12/18/2015 [id number] Psychiatric/Mental Health Cristela Duron RXNORM Problem List Concept Problem Description Status Start Date Created Date Resolv ed Date Snomed Code F31.60 Bipolar disorder, current episode mixed, unspecified Activ e 06/16/2021 Medications Rx Norm Medication Route Route Concept Start Date Stop Date Dosage Richard quency Duration Formula Strength Dosage Form Dosage Form Code Dosage Description Medication Id Account Npid Author First Name Author Last Name Taxonomy Code Taxonomy Desc Phone Number [id number] Cymbalta by mouth [id number] 06/15/2021 07/15/2021 at bedtime 30 3 0 mg capsule,delayed release(DR/EC) 41664 805344 [id number] Perfecto Tovar [id number] 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 [phone] 170682 Geodon by mouth [id number] 06/15/2021 08/14/2021 every evening 30 60 mg capsule with meals 21076 511656 [id number] Loreta Tovar [id number] 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 [id number] 835153 amitriptyline 12/15/2020 09/13/2021 at bedtime 30 25 mg tablet 76485 [id number] Loreta Tovar [id number] 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 [id number] 541192 prazosin by mouth [id number] 10/12/2020 09/13/2021 at bedtime 30 2 mg capsule 06712 118996 [id number] Loreta Tovar [id number] Nurse Bryn lugo [id number] Social History Social History Element Description Concept Effective Date Smoking Status Current every day smoker [id number] 5 Immunizations No Data in Section Vital Signs No Data in Section Procedures Date Concept Id Description Targeted Site Concept Targeted Site Concept Type 06/15/2021 49452 E/M Level 3 - Established Patient CPT 06/15/2021 09944 Psychotherapy ADD ON - 30 Minutes CPT Patient has no history of implantable de vices Encounters Encounter Start Date End Date Encounter Type Description Diagnosis Di agnosis Desc Location Author First Name Author Last Name Npid Taxonomy Cod e Taxonomy Desc Phone Number Location Addr1 Location Addr2 Location City Location Sta te Location [facility] [id number] 06/15/2021 06/15/2021 05802 E/M Level 3 - Established Pa tient F31.60 Bipolar disorder, current episode mixed, unspecified [facility] Guydaniel Kan [id number] 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 [phone] [address] [phone] Plan of Treatment No Data in Section Lab Results No Data in Section Instructions No Data in Section Functional Cognitive Status No Data in Section Insurance Providers Insurance Id Policy Effective Date Policy Thru Date Brammo Reginald bal [id number] [address]
--- OUTSIDE RECORDS SUMMARY | 2021-07-21 10:35 | CCD ---
Author Author [facility] Organization [facility] Address Unknown Phone Unavailable Care Team Providers Care Special Service Officer Name Role Phone Jose Miguel Campuzano Unavailable PROBLEMS Type Condition ICD9-CM Code [id number] Code Onset Dates Condition S tatus W/U Status Risk SNOMED Code Notes Problem Personal history of other diseases of the digestive system Z87.19 Active confirmed 866814431 Problem Seasonal allergies J30.2 Active confirmed 4 73547629 Problem Screening for diabetes mellitus Z13.1 Active confi rmed 799397445 Problem NSTEMI (non-ST elevated myocardial infarction) I21 .4 Active confirmed 242398263 Problem Essential hypertension I10 Active confirmed 99091356 Problem Sacroiliitis M46.1 Active confirmed 8713196 9 Problem Cervical disc disorder at C5-C6 level with radiculopathy M50.122 Active confirmed 696401884 Problem Asymptomatic postprocedural ovarian failure E89.40 Active confirmed 691351843 Problem Hyperlipidemia, unspecified hyperlipidemia type E7 8.5 Active confirmed 06994427 Problem Environmental allergies Z91.09 Active confirmed 715075608 Problem Chronic GERD K21.9 Active confirmed 3671291 09 Problem Anxiety F41.9 Active confirmed 71100488 Problem Hypoglycemia E16.2 Active confirmed 5924816 03 Problem Other chronic pain G89.29 Active confirmed 8 2670873 Problem Sleep walking F51.3 Active confirmed 254189 09 Problem Spondylosis of lumbar region without myelopathy or radiculopathy M47.816 Active confirmed 280562686 Problem Lumbar radiculopathy M54.16 Active confirmed 675012137 Problem Primary osteoarthritis of right knee M17.11 Act kevin confirmed 129148708926748 Problem Myalgia M79.1 Active confirmed 72210797 Problem Bipolar 2 disorder F31.81 Active confirmed 8 2028479 Problem Other specified postprocedural states Z98.890 Ac tive confirmed 25245075628730 Problem Spondylosis of lumbosacral region without myelop athy or radiculopathy M47.817 Active confirmed 55254785 Problem Post laminectomy syndrome M96.1 Active confirmed 05110313 Problem Abnormal uterine bleeding (AUB) N93.9 Active confirmed 56797989842254 Problem Sleep apnea, obstructive G47.33 Active confirmed 63143395 Problem Abnormal uterine bleeding N93.9 Active confirmed 22865939518866 Problem Other depression F32.89 Active confirmed 354 39214 Problem H/O: hysterectomy Z90.710 Active confirmed 1 07502286 Problem Post-laminectomy syndrome M96.1 Active confirmed 92017276 Problem Anxiety with depression F41.8 Active confirmed 693358673 Problem 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 K 91.2 Active confirmed 093044719 Problem Labile hypertension R09.89 Active confirmed 921445464 Problem Iron deficiency anemia, unspecified iron deficiency an emia type D50.9 Active confirmed 50608705 Problem Sacroiliitis, not elsewhere classified M46.1 A ctive confirmed 21359175 Problem Substance abuse F19.10 Active confirmed 6621 4007 Problem PTSD (post-traumatic stress disorder) F43.10 Ac tive confirmed 75025664 Problem Cannabis use disorder, mild, abuse F12.10 Activ e confirmed 79569710 Problem Moderate episode of recurrent major depressive disorder F33.1 Active confirmed 722768559 Problem Lumbar post-laminectomy syndrome M96.1 Active conf irmed 501720150 ALLERGIES Allergen (clinical drug ingredient) Drug/Non Drug Allergy do cumented on EMR Reaction Allergy Type Onset Date Status Tape Rash Drug Allergy Active Penicillin (For Allergies Use Only) Rash Drug Allerg y Active ENCOUNTERS from 1975 to 2021-07-05 Encounter Location Date Provider Diagnosis [facility] Resident [phone] [place] [address] Jun, Jose Miguel Barkin Rash and nonspecific skin eruption R21 ; Seizure R56.9 ; Moderate episode of recurrent major depressive disorder F33.1 ; Normocytic anemia D64.9 and Immunization due Z23 IMMUNIZATIONS Vaccine Route Administration Date Status Influenza 18 yrs & older Flublok IM Intramuscular Jun 11, 2021 Administered Influenza 18 yrs & older Flublok IM Intramuscular Aug 26, 2020 Administered Influenza 6mo & up Fluzone Unknown Jun 26, 2018 Admin istered SOCIAL HISTORY Tobacco Use: Social History Observation Description Date Details (start date - stop date) Former Smoker Sex Assigned At : Social History Observation Description Sex Assigned At Unknown Education: Question Answer Notes Level of Education: High School Audit Question Answer Notes Total Score: 1 Interpretation: Alcohol Education Language: Question Answer Notes Languages spoken: Samoan Mosque: Question Answer Notes Mosque [employer] [facility] Alcohol Question Answer Notes Total Score: 1 Interpretation: Low level Alcohol Screening: Question Answer Notes Did you have a drink containing alcohol in the past year? No Points 0 Interpretation Negative Tobacco Use: Question Answer Notes Are you a: former smoker How long has it been since you last smoked? 1-5 years REASON FOR REFERRAL from 1975 to 2021-07-05 Reason iron def anemia-diagnostic c olonoscopy, last in [address] Witt was WNL per patient Diagnosis 1 Normocytic anemia (D64.9) Referral Organization [facility] GME Resident Referring Provider First Name Jose Miguel Referring Provider Last Name Tatianna Referring Provider Specialty Family Medicine Referred Provider Specialty General Surgery Referral Priority Routine VITAL SIGNS Weight 184 lbs Jun, Weight-kg 83.46 kg Jun, Height 67 in Jun, BMI 28.82 kg/m2 Jun, Heart Rate 95 /min Jun, Respiratory Rate 18 /min Jun, Temperature 98.3 degrees Fahrenheit Jun, Oximetry 100 Jun, Blood pressure systolic 130 mm Hg Jun, Blood pressure diastolic 80 mm Hg Jun, MEDICATIONS Medication SIG (Take, Route, Frequency, Duration) Notes Start Da te End Date Status Docusate Sodium 100 MG 1 cap Orally twice daily Not-Taking Wellbutrin SR 100 MG 1 tablet in the morning Orally Once a day Not-Taking tiZANidine HCl 4 MG 1/2 tablet Orally qhs for 30 Days Not-Taking Aspirin 81 MG 1 tablet Orally Once a day for 30 day(s) Active Cymbalta 30 MG 1 capsule Orally Once a day for 30 day(s) Active Atorvastatin Calcium 20 MG 1 tablet Orally Once a day Active Ziprasidone HCl 60 MG 1 capsule with food Orally Daily Active Levocetirizine Dihydrochloride 5 MG 1 tablet in the ev ening Orally Once a day for 30 days Active Pantoprazole Sodium 40 MG 1 tablet orally twice daily for 90 Active Amitriptyline HCl 25 MG 1 tablet Orally Once a day Active Prazosin HCl 2 MG 1 capsule at bedtime Orally Once a day Active Iron (Ferrous Sulfate) 325 (65 Fe) MG 1 tablet Orally every other day for 30 day(s) Jun, Active May Have - Free Style Lite test strips As directed four times daily (E11.9) for 30 Days Dec, Active PROCEDURES from 1975 to 2021-07-05 Procedure Date Ordered Result Body Site Imm: Flublok Quadrivalent 18 years & older 0.5mL IM Influenza 01-07-01 N/A RESULTS Component Value Reference Range FERRITIN Reviewed date:06/22/2021 10:11:53 Interpretation:low Performing Lab:[facility] [address] [place] [address] , ,[place] [address] FERRITIN 3 8-252 TOTAL IRON BINDING CAPACIT Reviewed date:06/22/2021 10:12:43 Interpretation:low iron, nml tibc, low %Sat Performing Lab:[facility] [address] [facility] [address] , ,[place] [address] IRON (FE) 34 50-170 TOTAL IRON BINDING CAPACITY 357 250-450 PERCENT SATURATION 9.5 13.2-45.0 CBC - Complete Blood Count Reviewed date:06/23/2021 15:16:19 Interpretation:iron def anemia Performing Lab:[facility] [address] [facility] [address] , ,[place] [address] WHITE BLOOD COUNT 3.5 4.0-10.0 RED BLOOD COUNT 4.15 4.00-5.40 HEMOGLOBIN 11.0 12.0-15.5 HEMATOCRIT 35.1 36.0-47.0 MEAN CORPUSCULAR VOLUME 84.6 80.0-96.0 MEAN CORPUSCULAR HEMOGLOBIN 26.5 27.0-33.0 MEAN CORPUSCULAR HGB CONC 31.3 32.0-36.5 RED CELL DISTRIBUTION WIDTH 16.7 11.5-14.5 PLATELET COUNT, AUTOMATED 205 150-450 REASON FOR VISIT [facility]TCM [facility] ED d/c 05/27 - Seizure, 6 MONTHS MEDS MEDICAL (GENERAL) HISTORY Type Description Date Medical History high cholesterol and triglysorides Medical History anxiety, depression and PTSD Medical History bipolar depression in hx Medical History OR Medical History Gastric Bypass Medical History Low back pain Medical History GERD Medical History Gastroparesis Medical History arthritis Medical History hiatal hernia Medical History rectocele Medical History abnormal uterine bleeding Medical History NSTEMI Medical History HTN Surgical History D&C 2000 Surgical History cholecystectomy 2001 Surgical History hernia repair x2 Surgical History back discectomy Lumbar region 2016 Surgical History gastric bypass 10/06/172017 Surgical History Right knee Arthroscopy 2007 Surgical History Cardiac Catheterization 06/2018 Surgical History RIGHT KNEE REPLACEMENT 06/2019 Surgical History EGD 07/2010 Surgical History RALH, OBS, cystoscopy 02/12/20 Hospitalization History surgery related Hospitalization History In Mental Health 1999 Hospitalization History Chest pain 03/07/2018 Hospitalization History OR 06/2018 Hospitalization History seizure - was taken of medications Goals Section No Information Health Concerns No Information MEDICAL EQUIPMENT No Information MENTAL STATUS No Information FUNCTIONAL STATUS No Information ASSESSMENTS Encounter Date Diagnosis Assessment Notes Treatment Notes Treatm ent Clinical Notes Jun, Rash and nonspecific skin eruption (ICD-10 - R21 ) Advised topical eucerin or Aquaphor cream and pujx-bjy-zqtzldz anti itch cream, her rash and her own provided history is consistent with self induced veliz, also advised speaking with psychiatry about her psychiatric medications. Patient verbalized understanding and agreement with plan moving forward. Jun, Seizure (ICD-10 - R56.9) Patient Educated with: Flu Recombinant [id number] (Flu Recombinant [id number]) Will attempt to get notes from Dr. Herman, she states she does not wish to DC her medications until she sees her psychiatrist next week to help her switch to medications that will work better. I reiterated that tizanidine, wellbutrin, and tramadol did have the potential to lower the seizure threshold and that I would not refill these for her. She is aware these may increase her risk of seizures. She will also speak with Dr. Castellanos about switching her pain medication so that her pain can still be well controlled and not increase her seizure risk. Seizure work up per neuro. Pain and psychiatric medication changes per each provider. Patient verbalized understanding and agreement with plan moving forward. Jun, Moderate episode of recurren t major depressive disorder (ICD-10 - F33.1) Patient verbalized understanding and agreement with plan moving forward. Jun, Normocytic anemia (ICD-10 - D64.9) ED labwork showing normocytic anemia, will repeat and check iron levels. Will check B12 level at next visit. May consider diagnostic colonoscopy if unable to ascertain cause of anemia. Patient verbalized understanding and agreement with plan moving forward. Jun, Immunization due (ICD-10 - Z23) Patient counseled on possible vaccine reactions and advised to stay well hydrated and take tylenol as needed for flu like symptoms, given reassurance these should resove within 24-48 hours. Patient verbalized understanding and agreement with plan moving forward. PLAN OF TREATMENT Medication Medication Name Sig Start Date Stop Date Iron (Ferrous Sulfate) 325 (65 Fe) MG 1 tablet Orally every other day for 30 day(s) Jun, Treatment Notes Assessment Notes Clinical Notes Rash and nonspecific skin eruption Advis ed topical eucerin or Aquaphor cream and zovc-jrw-sjohfta anti itch cream, her rash and her own provided history is consistent with self induced veliz, also advised speaking with psychiatry about her psychiatric medications. Patient verbalized understanding and agreement with plan moving forward. Seizure Patient Educated with: Flu R ecombinant [id number] (Flu Recombinant [id number]) Will attempt to get notes from Dr. Mimi mendoza, she states she does not wish to DC her medications until she sees her psychiatrist next week to help her switch to medications that will work better. I reiterated that tizanidine, wellbutrin, and tramadol did have the potential to lower the seizure threshold and that I would not refill these for her. She is aware these may increase her risk of seizures. She will also speak with Dr. Castellanos about switching her pain medication so that her pain can still be well controlled and not increase her seizure risk. Seizure work up per neuro. Pain and psychiatric medication changes per each provider. Patient verbalized understanding and agreement with plan moving forward. Moderate episode of recurrent major depressive disorder Patient verbalized understanding and agreement with plan moving forward. Normocytic anemia ED labwork showing n ormocytic anemia, will repeat and check iron levels. Will check B12 level at next visit. May consider diagnostic colonoscopy if unable to ascertain cause of anemia. Patient verbalized understanding and agreement with plan moving forward. Immunization due Patient counseled on possible vaccine reactions and advised to stay well hydrated and take tylenol as needed for flu like symptoms, given reassurance these should resove within 24-48 hours. Patient verbalized understanding and agreement with plan moving forward. Treatment Notes Test Name Order Date IRON (FE) 2021-06-11 Referrals Referral Date Details iron def anemia-diagnostic c olonoscopy, last in [address] Witt was WNL per patient Next Appt Details 2 Months Reason:f/u Provider Name:Jorge Castellanos, 2021-07-22 11:00:00 AM, [address], , [place], [address], Provider Name:Jose Miguel Campuzano, 2021-07-27 01 :45:00 PM, [address], , [place], [address], Follow Up:2 Monthsf/u Insurance Providers Payer Name Payer Address Payer Phone Insured Name Patient Relati onship to Insured Coverage Start Date Coverage End Date [facility] [employer] [address] [facility] [address] DULCE CHOWDHURY self
--- OUTSIDE RECORDS SUMMARY | 2021-07-21 10:35 | CCD ---
Author Author [facility] Organization [facility] Address Unknown Phone Unavailable Care Team Providers Care Wick Tender Name Role Phone Jose Miguel Campuzano Unavailable PROBLEMS Type Condition ICD9-CM Code PRX37-QV Code Onset Dates Condition S tatus W/U Status Risk SNOMED Code Notes Problem Other depression F32.89 Active confirmed 354 99793 Problem Hypoglycemia E16.2 Active confirmed 4426528 03 Problem Sleep apnea, obstructive G47.33 Active confirmed 80886050 Problem Personal history of other diseases of the digestive system Z87.19 Active confirmed 433932831 Problem Anxiety F41.9 Active confirmed 25371608 Problem Seasonal allergies J30.2 Active confirmed 4 41725360 Problem Screening for diabetes mellitus Z13.1 Active confi rmed 573574476 Problem Bipolar 2 disorder F31.81 Active confirmed 8 8161722 Problem Hyperlipidemia, unspecified hyperlipidemia type E7 8.5 Active confirmed 49246709 Problem Spondylosis of lumbar region without myelopathy or radiculopathy M47.816 Active confirmed 697212075 Problem Post laminectomy syndrome M96.1 Active confirmed 02249889 Problem Other specified postprocedural states Z98.890 Ac tive confirmed 11584836294851 Problem Chronic GERD K21.9 Active confirmed 3002101 09 Problem Sacroiliitis, not elsewhere classified M46.1 A ctive confirmed 53402513 Problem Cervical disc disorder at C5-C6 level with radiculopathy M50.122 Active confirmed 740501154 Problem Substance abuse F19.10 Active confirmed 6621 4007 Problem Labile hypertension R09.89 Active confirmed 126476799 Problem Other chronic pain G89.29 Active confirmed 8 1590562 Problem Sleep walking F51.3 Active confirmed 848685 09 Problem Spondylosis of lumbosacral region without myelop athy or radiculopathy M47.817 Active confirmed 59413672 Problem Lumbar radiculopathy M54.16 Active confirmed 232917051 Problem Primary osteoarthritis of right knee M17.11 Act kevin confirmed 520575297976979 Problem Myalgia M79.1 Active confirmed 65597219 Problem Abnormal uterine bleeding N93.9 Active confirmed 11546905620948 Problem Abnormal uterine bleeding (AUB) N93.9 Active confirmed 21143004020678 Problem Environmental allergies Z91.09 Active confirmed 633008477 Problem Cannabis use disorder, mild, abuse F12.10 Activ e confirmed 37717714 Problem NSTEMI (non-ST elevated myocardial infarction) I21 .4 Active confirmed 844146622 Problem PTSD (post-traumatic stress disorder) F43.10 Ac tive confirmed 07277073 Problem Essential hypertension I10 Active confirmed 74487732 Problem Sacroiliitis M46.1 Active confirmed 6182672 9 Problem Asymptomatic postprocedural ovarian failure E89.40 Active confirmed 859329258 Problem H/O: hysterectomy Z90.710 Active confirmed 1 19677155 Problem Post-laminectomy syndrome M96.1 Active confirmed 39159842 Problem Anxiety with depression F41.8 Active confirmed 643566846 ALLERGIES Allergen (clinical drug ingredient) Drug/Non Drug Allergy do cumented on EMR Reaction Allergy Type Onset Date Status Penicillin (For Allergies Use Only) Rash Drug Allerg y Active Tape Rash Non Drug Allergy Active ENCOUNTERS from 1974 to 2021-06-03 Encounter Location Date Provider Diagnosis [address] [phone] [place] [address] May, Jose Miguel Campuzano Other problems related to ho using and economic circumstances Z59.8 ; Low income Z59.6 and Unemployment, unspecified Z56.0 IMMUNIZATIONS Vaccine Route Administration Date Status Influenza [...] Education Language: Question Answer Notes Languages spoken: Indonesian Christian: Question Answer Notes [facility] Alcohol Question Answer Notes Total Score: 1 Interpretation: Low level Alcohol Screening: Question Answer Notes Did you have a drink containing alcohol in the past year? No Points 0 Interpretation Negative Tobacco Use: Question Answer Notes Are you a: former smoker How long has it been since you last smoked? 1-5 years REASON FOR REFERRAL No Information VITAL SIGNS No information MEDICATIONS Medication SIG (Take, Route, Frequency, Duration) Notes Start Da te End Date Status Levocetirizine Dihydrochloride 5 MG 1 tablet in the ev ening Orally Once a day for 30 days Active May Have - Free Style Lite test strips As directed four times daily (E11.9) for 30 Days Dec, Active Prazosin HCl 2 MG 1 capsule at bedtime Orally Once a day Active Wellbutrin SR 100 MG 1 tablet in the morning Orally Once a day Active Ziprasidone HCl 60 MG 1 capsule with food Orally Daily Active Atorvastatin Calcium 10 MG 1 tablet Orally Once a day for 30 day(s) Dosage unknown at this time Active tiZANidine HCl 4 MG 1/2 tablet Orally qhs for 30 Days Active Aspirin 81 MG 1 tablet Orally Once a day for 30 day(s) Active Docusate Sodium 100 MG 1 cap Orally twice daily Active Amitriptyline HCl 25 MG 1 tablet Orally Once a day Active Pantoprazole Sodium 40 MG 1 tablet orally twice daily for 90 Active PROCEDURES No Information RESULTS No Results REASON FOR VISIT [facility] ED d/c 05/27 - Seizure MEDICAL (GENERAL) HISTORY Type Description Date Medical History high cholesterol and triglysorides Medical History anxiety, depression and PTSD Medical History bipolar depression in hx Medical History [place] Medical History Gastric Bypass Medical History Low [...] Hospitalization History surgery related Hospitalization History In [facility] 1999 Hospitalization History Chest pain 03/07/2018 Hospitalization History [place] 06/2018 Goals Section No Information Health Concerns No Information MEDICAL EQUIPMENT No Information MENTAL STATUS No Information FUNCTIONAL STATUS No Information ASSESSMENTS Encounter Date Diagnosis Assessment Notes Treatment Notes Treatm ent Clinical Notes May, Other problems related to ho using and economic circumstances (ICD- 10 - Z59.8) May, Low income (ICD-10 - Z59.6) May, Unemployment, unspecified (ICD-10 - Z56.0) May, Other 06/01/21 @ 12:45 pm- Discussion with patient s/p ER visit after Seizure. Pt denies any further seizure activity since seen in ER. Pt reports she had appt with Neurology today but had to reschedule due to insurance problem. Pt aware of f/u appt with PCP 06/11/21. Medication reconciliation completed with pt and medication record updated. Social Determinants of Health Screen completed with pt with needs identified, see scanned form. Agricultural Technical Officer advised pt of community sources which she states she already has their information. See VV for pt requests. Pt denies any questions when asked by this sba underwriter ; sba underwriter advised pt to contact clinic should any concerns arise. Delilah Anderson RN PLAN OF TREATMENT Medication Medication Name Sig Start Date Stop Date May Have - Free Style Lite test strips As directed four times daily (E11.9) for 30 Days Dec, Pantoprazole Sodium 40 MG 1 tablet orally twice daily for 90 Next Appt Details Provider Name:Jose Miguel Cohnjaleel, 2021-06-11 02 :30:00 PM, [address] [facility], , [place], [address], Provider Name:Jorge Castellanos, 2021-07-07 10:45:00 AM, [address], , [place], [address], Insurance Providers Payer Name Payer Address Payer Phone Insured Name Patient Relati onship to Insured Coverage Start Date Coverage End Date [facility] [address] [facility] [address] DULCE CHOWDHURY self
--- OUTSIDE RECORDS SUMMARY | 2021-07-21 10:35 | CCD | Continuity of Care Document ---
Author Author Anne TEMPLETON PA Organization Unknown Address [address] [facility], [address] [place] [address] Phone [phone] Care Team Providers Care Ship Pilot Dispatcher Name Role Phone Genaro Sharpe M.D. AUTM [phone] Jose Miguel Campuzano D.O. AUTM [phone] AUTM Unavailable AUTM Unavailable Problems Description No Information Available Social History Type Date Description Comments Sex Unknown ETOH Use 1-2 A Month Tobacco Use Start: Unknown End: Unknown Patient is a former smoker 2 ppd x30 years quit in 2016 Recreational Drug Use Regularly uses Marijuana Exercise Type/Frequency Exercises rarely Allergies and adverse reactions Active Allergies Criticality Reaction | Severity Comments Date Penicillin Unable to assess criticality hives rash 05/24/2010 Latex Unable to assess criticality Thayer, Blisters 07/19/2021 Medications Active Medications SIG Qnty Indications Ordering Provide r Date Atorvastatin 10mg Tablets One tab daily Unknown Vitamin B-12 500mcg Tablets 1 by mouth every day Unknown Duloxetine HCL 30mg Caps DR Part Unknown Amitriptyline HCL 25mg Tablets Unknown Ziprasidone HCL 60mg Capsules one tab daily Unknown Prazosin HCL 2mg Capsules One tab daily Unknown Levocetirizine Dihydrochloride 5mg Tablets one tab daily Jose Miguel Campuzano D.OSharon 00 Aspirin Low Dose 81mg Tablets DR Take One Tablet By Mouth Daily Unknown Pantoprazole Sodium 40mg Tablets Jose Miguel Rich D.OSharon Ferosul 325(65Fe) mg Tablets Take One Tablet By Mouth Every Other Day Unknown Headache Relief Tablets prn Unknown Immunizations Description No Information Available Vital Signs Date Vital Result Comment 07/19/2021 1:37pm BP Systolic 145 mmHg BP Diastolic 91 mmHg Heart Rate 67 /min Body Temperature 98.4 F Height 67 inches 5'7" Weight 186.38 lb BMI (Body Mass Index) 29.2 kg/m2 [place] Body Weight 135 lb Weight 84.540 kg BSA (Body Surface Area) 1.96 m2 05/16/2019 8:35am BP Systolic 96 mmHg BP Diastolic 52 mmHg Height 67 inches 5'7" Weight 174.00 lb BMI (Body Mass Index) 27.2 kg/m2 [place] Body Weight 135 lb Weight 78.926 kg BSA (Body Surface Area) 1.91 m2 Results Description No Information Available Procedures Description No Information Available Medical Devices Description No Information Available Encounters Description No Information Available Assessments Date Code Description Provider 07/19/2021 D50.9 Iron deficiency anemia, unspecif ied JOSAFAT Parra 07/19/2021 Z98.84 Bariatric surgery status JOSAFAT Perez 07/19/2021 Z68.29 Body mass index [BMI] 29.0-29.9, adult JOSAFAT Parra Plan of Treatment Future Appointment(s):* 08/31/2021 11:45 am - JOSAFAT Parra at [facility] * 08/17/2021 8:30 am - Cy Nash MD at [facility] 07/19/2021 - JOSAFAT Parra* D50.9 Iron deficiency anemia, unspecified * Z98.84 Bariatric surgery status * Z68.29 Body mass index [BMI] 29.0-29.9, adult Functional Status Description No Information Available Mental Status Description No Information Available Referrals Refer to Reason for Referral Status Appt Date Cy Nash MD IRON DEF ANEMIA/ COLONOSCOPY Scheduled 07/19/[address] [place], [place] [address] [phone]
--- OUTSIDE RECORDS SUMMARY | 2021-07-21 10:35 | CCD | Continuity of Care Document ---
Author Author Ans/Anne NAGY Organization Unknown Address [address] [place] [address] Phone [phone] Care Team Providers Care Plant Control Operator Name Role Phone Genaro Sharpe M.D. AUTM [phone] Problems Active Problems Provider Date Near syncope Sandoval Herman M.D. Onset: 04/25/2016 Social History Type Date Description Comments Sex Unknown Tobacco Use Start: Unknown Patient is a current smoker, smo kes every day Allergies, Adverse Reactions, Alerts Active Allergies Criticality Reaction | Severity Comments Date Penicillin Unable to assess criticality rash 04/25/2016 Inactive Allergies NKDA Unable to assess criticality 04/25/2016 Medications Active Medications SIG Qnty Indications Ordering Provide r Date Gabapentin 800mg Tablets take one tablet by mouth three times a day 90tabs Sandoval Herman M.D. Immunizations Description No Information Available Vital Signs Date Vital Result Comment 06/03/2021 2:50pm Respiratory Rate 12 /min Height 67 inches 5'7" Weight 188.00 lb BMI (Body Mass Index) 29.4 kg/m2 [place] Body Weight 135 lb 01/22/2019 1:23pm BP Systolic 130 mmHg BP Diastolic 78 mmHg Heart Rate 72 /min Respiratory Rate 12 /min Height 67 inches 5'7" Weight 188.00 lb BMI (Body Mass Index) 29.4 kg/m2 [place] Body Weight 135 lb Results Description No Information Available Procedures Date Code Description Status 06/04/2021 22617 Sympathetic Skin Responses Compl eted 06/04/2021 09103 Test Autonomic Nervous System, C ardiovagal Innervation Completed 06/04/2021 15133 Artery Study Extremity Mult Leve ls Bilateral Completed 06/03/2021 19388 Office/Outpatient Established [facility] MDM 40-54 Min Completed Medical Devices Description No Information Available Encounters Type Date Location Provider Dx Diagnosis Office Visit 06/03/2021 2:30p [facility] Sandoval galeano M.D. G40.309 Gen idiopathic epilepsy, not intractable , w/o stat epi Assessments Date Code Description Provider 06/04/2021 R55 Syncope and collapse Sandoval mendoza M.D. 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 Plan of Treatment Future Appointment(s):* 09/21/2021 11:15 am - Sandoval Herman M.D. at [facility] * 07/12/2021 1:00 pm - EEG at [facility] Functional Status Description No Information Available Mental Status Description No Information Available Referrals Description No Information Available
--- OUTSIDE RECORDS SUMMARY | 2021-07-21 10:35 | CCD | Continuity of Care Document ---
Author Author Anne GRIDER M.D. Organization Unknown Address [address] [place] [address] Phone [phone] Care Team Providers Care Registered Associate Name Role Phone Genaro Sharpe M.D. AUTM [phone] Problems Active Problems Provider Date Near syncope Sandoval Grider M.D. Onset: 04/25/2016 Social History Type Date [...] mouth three times a day 90tabs Sandoval Grider M.D. Immunizations Description No Information Available Vital Signs Date Vital Result Comment 06/03/2021 2:50pm Respiratory Rate 12 /min Height 67 inches 5'7" Weight 188.00 lb BMI (Body Mass Index) 29.4 kg/m2 Outing Body Weight 135 lb 01/22/2019 1:23pm BP Systolic 130 mmHg BP Diastolic 78 mmHg Heart Rate 72 /min Respiratory Rate 12 /min Height 67 inches 5'7" Weight 188.00 lb BMI (Body Mass Index) 29.4 kg/m2 Outing Body Weight 135 lb Results Description No Information Available Procedures Date Code Description Status 06/04/2021 16337 Sympathetic Skin Responses Compl eted 06/04/2021 06886 Test Autonomic Nervous System, C ardiovagal Innervation Completed 06/04/2021 18693 Artery Study Extremity Mult Leve ls Bilateral Completed 06/03/2021 76825 Office/Outpatient Established [facility] 40-54 Min Completed Medical Devices Description No Information Available Encounters Type Date Location Provider Dx Diagnosis Office Visit 06/03/2021 2:30p [facility] Sandoval galeano M.D. 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 Plan of Treatment Future Appointment(s):* 09/21/2021 11:15 am - Sandoval Grider M.D. at [facility] * 07/12/2021 1:00 pm - EEG at [facility] Functional Status Description No Information Available Mental Status Description No Information Available Referrals Description No Information Available
--- OUTSIDE RECORDS SUMMARY | 2021-07-21 10:35 | CCD ---
Author Author Anne Tovar Organization Unknown Address [address] [address] Phone Care Team Providers Care Bolt Header Name Role Phone Loreta Tovar PCP Allergies, Adverse Reactions, Alerts Concept Allergy Name Reaction Severity Onset Date Status Documentation Date Phone Number Npid Taxonomy Code Taxonomy Desc Author Last Name Author Magnolia rst Name Concept Type 136556 sertraline Irritability 11/25/2018 Active 09/26/2018 RXNORM 284375 penicillin v potassium urticaria (hives) 12/18/2015 Acti ve 12/18/2015 [id number] Psychiatric[facility]Mental [facility] Cristela Duron RXNORM Problem List Concept Problem Description Status Start Date Created Date Resolv ed Date Snomed Code F31.60 Bipolar disorder, current episode mixed, unspecified Activ e 07/15/2021 Medications Rx Norm Medication Route Route Concept Start Date Stop Date Dosage Richard quency Duration Formula Strength Dosage Form Dosage Form Code Dosage Description Medication Id Account Npid Author First Name Author Last Name Taxonomy Code Taxonomy Desc Phone Number [id number] Cymbalta by mouth [id number] 06/15/2021 07/15/2021 at bedtime 30 3 0 mg capsule,delayed release(DR/EC) 23912 813096 [id number] Perfecto Tovar [id number] 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 [phone] 839293 Geodon by mouth [id number] 06/15/2021 08/14/2021 every evening 30 60 mg capsule with meals 55826 [id number] Loreta Tovar [id number] 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 [id number] 458912 amitriptyline 12/15/2020 09/13/2021 at bedtime 30 25 mg tablet 04402 352330 [id number] Loreta Tovar [id number] 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 [id number] 342064 prazosin by mouth [id number] 10/12/2020 09/13/2021 at bedtime 30 2 mg capsule 12763 [id number] Loreta Tovar [id number] Nurse Bryn lugo [phone] Social History Social History Element Description Concept Effective Date Smoking Status Current every day smoker [id number] 2405214 3 Immunizations No Data in Section Vital Signs No Data in Section Procedures Date Concept Id Description Targeted Site Concept Targeted Site Concept Type 07/14/2021 45212 E/M Level 3 - Established Patient CPT Patient has no history of implantable de vices Encounters Encounter Start Date End Date Encounter Type Description Diagnosis Di agnosis Desc Location Author First Name Author Last Name Npid Taxonomy Cod e Taxonomy Desc Phone Number Location Addr1 Location Addr2 Location [facility] Location [facility] Location [facility] [id number] 07/14/2021 07/14/2021 98629 E/M Level 3 - Established Pa tient F31.60 Bipolar disorder, current episode mixed, unspecified [facility] Guy Loreta [id number] 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 [phone] [address] [phone] Plan of Treatment No Data in Section Lab Results No Data in Section Instructions No Data in Section Functional Cognitive Status No Data in Section Insurance Providers Insurance Id Policy Effective Date Policy Thru Neris Dispatch Reginald bal [id number] [address]
--- OUTSIDE RECORDS SUMMARY | 2021-07-21 10:35 | CCD ---
Author Author [facility] Organization [facility] Address Unknown Phone Unavailable Care Team Providers Care Stock Analyst Name Role Phone Jose Miguel Campuzano Unavailable PROBLEMS Type Condition ICD9-CM Code [id number] Code Onset Dates Condition S tatus W/U Status Risk SNOMED Code Notes Problem Personal history of other diseases of the digestive system Z87.19 Active confirmed 294379937 Problem Seasonal allergies J30.2 Active confirmed 4 00255847 Problem Screening for diabetes mellitus Z13.1 Active confi rmed 015753886 Problem NSTEMI (non-ST elevated myocardial infarction) I21 .4 Active confirmed 135813893 Problem Essential hypertension I10 Active confirmed 62503906 Problem Sacroiliitis M46.1 Active confirmed 2469262 9 Problem Cervical disc disorder at C5-C6 level with radiculopathy M50.122 Active confirmed 798081482 Problem Asymptomatic postprocedural ovarian failure E89.40 Active confirmed 795913400 Problem Hyperlipidemia, unspecified hyperlipidemia type E7 8.5 Active confirmed 33505656 Problem Environmental allergies Z91.09 Active confirmed 893536281 Problem Chronic GERD K21.9 Active confirmed 7523478 09 Problem Anxiety F41.9 Active confirmed 84971757 Problem Hypoglycemia E16.2 Active confirmed 3149777 03 Problem Other chronic pain G89.29 Active confirmed 8 3338899 Problem Sleep walking F51.3 Active confirmed 341823 09 Problem Spondylosis of lumbar region without myelopathy or radiculopathy M47.816 Active confirmed 774051020 Problem Lumbar radiculopathy M54.16 Active confirmed 168262326 Problem Primary osteoarthritis of right knee M17.11 Act kevin confirmed 923906982497156 Problem Myalgia M79.1 Active confirmed 50037145 Problem Bipolar 2 disorder F31.81 Active confirmed 8 0524905 Problem Other specified postprocedural states Z98.890 Ac tive confirmed 23917555013218 Problem Spondylosis of lumbosacral region without myelop athy or radiculopathy M47.817 Active confirmed 94448182 Problem Post laminectomy syndrome M96.1 Active confirmed 71903838 Problem Abnormal uterine bleeding (AUB) N93.9 Active confirmed 01866771001310 Problem Sleep apnea, obstructive G47.33 Active confirmed 68555234 Problem Abnormal uterine bleeding N93.9 Active confirmed 82500188817796 Problem Other depression F32.89 Active confirmed 354 62220 Problem H/O: hysterectomy Z90.710 Active confirmed 1 44671598 Problem Post-laminectomy syndrome M96.1 Active confirmed 50033196 Problem Anxiety with depression F41.8 Active confirmed 068767254 Problem 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 K 91.2 Active confirmed 771614675 Problem Labile hypertension R09.89 Active confirmed 041069476 Problem Iron deficiency anemia, unspecified iron deficiency an emia type D50.9 Active confirmed 61178520 Problem Sacroiliitis, not elsewhere classified M46.1 A ctive confirmed 23341915 Problem Substance abuse F19.10 Active confirmed 6621 4007 Problem PTSD (post-traumatic stress disorder) F43.10 Ac tive confirmed 03800915 Problem Cannabis use disorder, mild, abuse F12.10 Activ e confirmed 81345075 Problem Moderate episode of recurrent major depressive disorder F33.1 Active confirmed 196225573 Problem Lumbar post-laminectomy syndrome M96.1 Active conf irmed 947366389 ALLERGIES Allergen (clinical drug ingredient) Drug/Non Drug Allergy do cumented on EMR Reaction Allergy Type Onset Date Status Tape Rash Drug Allergy Active Penicillin (For Allergies Use Only) Rash Drug Allerg y Active ENCOUNTERS from 1974 to 2021-06-29 Encounter Location Date Provider Diagnosis [address] [phone] [place] [address] May, Jose Miguel Campuzano Seizure R56.9 IMMUNIZATIONS Vaccine Route Administration Date Status Influenza [...] Education Language: Question Answer Notes Languages spoken: Uruguayan Cheondoism: Question Answer Notes Cheondoism 08 [employer] Drug and Alcohol Question Answer Notes Total Score: 1 Interpretation: Low level Alcohol Screening: Question Answer Notes Did you have a drink containing alcohol in the past year? No Points 0 Interpretation Negative Tobacco Use: Question Answer Notes Are you a: former smoker How long has it been since you last smoked? 1-5 years REASON FOR REFERRAL from 1974 to 2021-06-29 Reason Seizure Diagnosis 1 Seizure (R56.9) Referral Organization [facility] Resident Referring Provider First Name Jose Miguel Referring Provider Last Name Tatianna Referring Provider Specialty Family Medicine Referred Provider Specialty Neurology Referral Priority Urgent General Notes Misty Crump 06/07/2021 11: 27:57 AM > [facility] referral request sent to Katy VITAL SIGNS No information MEDICATIONS Medication SIG [...] (E11.9) for 30 Days Dec, Active PROCEDURES No Information RESULTS No Results REASON FOR VISIT Referral to Neurology MEDICAL (GENERAL) HISTORY Type Description Date Medical History high cholesterol and triglysorides Medical History anxiety, depression and PTSD Medical History bipolar depression in hx Medical History [place] Medical History Gastric Bypass Medical History Low [...] History surgery related Hospitalization History [facility] 1999 Hospitalization History Chest pain 03/07/2018 Hospitalization History [place] 06/2018 Hospitalization History seizure - was taken of medications Goals Section No Information Health Concerns No Information MEDICAL EQUIPMENT No Information MENTAL STATUS No Information FUNCTIONAL STATUS No Information ASSESSMENTS Encounter Date Diagnosis Assessment Notes Treatment Notes Treatm ent Clinical Notes May, Seizure (ICD-10 - R56.9) PLAN OF TREATMENT Medication Medication Name Sig Start Date Stop Date Iron (Ferrous Sulfate) 325 (65 Fe) MG 1 tablet Orally every other day for 30 day(s) Jun, Referrals Referral Date Details Seizure Next Appt Details Provider Name:Jorge Castellanos, 2021-07-22 11:00:00 AM, [address], , [place], [address], Provider Name:Jose Miguel Campuzano, 2021-07-27 01 :45:00 PM, [address] [facility], , [place], [address], Insurance Providers Payer Name Payer Address Payer Phone Insured Name Patient Relati onship to Insured Coverage Start Date Coverage End Date [facility] [employer] [facility] [address] [facility] [phone] DULCE CHOWDHURY
--- OUTSIDE RECORDS SUMMARY | 2021-07-21 10:35 | CCD ---
Author Author [facility] Organization [facility] Address Unknown Phone Unavailable Care Team Providers Care Plant Operations Engineer Name Role Phone Jose Miguel Campuzano Unavailable PROBLEMS Type Condition ICD9-CM Code [id number] Code Onset Dates Condition S tatus W/U Status Risk SNOMED Code Notes Problem Personal history of other diseases of the digestive system Z87.19 Active confirmed 293774227 Problem Seasonal allergies J30.2 Active confirmed 4 38761490 Problem Screening for diabetes mellitus Z13.1 Active confi rmed 160610804 Problem NSTEMI (non-ST elevated myocardial infarction) I21 .4 Active confirmed 375753746 Problem Essential hypertension I10 Active confirmed 25579134 Problem Sacroiliitis M46.1 Active confirmed 3524698 9 Problem Cervical disc disorder at C5-C6 level with radiculopathy M50.122 Active confirmed 946047336 Problem Asymptomatic postprocedural ovarian failure E89.40 Active confirmed 625354353 Problem Hyperlipidemia, unspecified hyperlipidemia type E7 8.5 Active confirmed 02971601 Problem Environmental allergies Z91.09 Active confirmed 579888872 Problem Chronic GERD K21.9 Active confirmed 2097478 09 Problem Anxiety F41.9 Active confirmed 45330268 Problem Hypoglycemia E16.2 Active confirmed 6245787 03 Problem Other chronic pain G89.29 Active confirmed 8 8247072 Problem Sleep walking F51.3 Active confirmed 340129 09 Problem Spondylosis of lumbar region without myelopathy or radiculopathy M47.816 Active confirmed 247726439 Problem Lumbar radiculopathy M54.16 Active confirmed 368737576 Problem Primary osteoarthritis of right knee M17.11 Act kevin confirmed 768932891703911 Problem Myalgia M79.1 Active confirmed 48492079 Problem Bipolar 2 disorder F31.81 Active confirmed 8 4715951 Problem Other specified postprocedural states Z98.890 Ac tive confirmed 50287538266759 Problem Spondylosis of lumbosacral region without myelop athy or radiculopathy M47.817 Active confirmed 34601548 Problem Post laminectomy syndrome M96.1 Active confirmed 69035652 Problem Abnormal uterine bleeding (AUB) N93.9 Active confirmed 04655119240191 Problem Sleep apnea, obstructive G47.33 Active confirmed 22785687 Problem Abnormal uterine bleeding N93.9 Active confirmed 44935890824737 Problem Other depression F32.89 Active confirmed 354 29878 Problem H/O: hysterectomy Z90.710 Active confirmed 1 09197893 Problem Post-laminectomy syndrome M96.1 Active confirmed 29869333 Problem Anxiety with depression F41.8 Active confirmed 667702559 Problem 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 K 91.2 Active confirmed 398911478 Problem Labile hypertension R09.89 Active confirmed 575012831 Problem Iron deficiency anemia, unspecified iron deficiency an emia type D50.9 Active confirmed 39815961 Problem Sacroiliitis, not elsewhere classified M46.1 A ctive confirmed 96965781 Problem Substance abuse F19.10 Active confirmed 6621 4007 Problem PTSD (post-traumatic stress disorder) F43.10 Ac tive confirmed 58049682 Problem Cannabis use disorder, mild, abuse F12.10 Activ e confirmed 47544647 Problem Moderate episode of recurrent major depressive disorder F33.1 Active confirmed 523643853 Problem Lumbar post-laminectomy syndrome M96.1 Active conf irmed 633307408 ALLERGIES Allergen (clinical drug ingredient) Drug/Non Drug Allergy do cumented on EMR Reaction Allergy Type Onset Date Status Tape Rash Drug Allergy Active Penicillin (For Allergies Use Only) Rash Drug Allerg y Active ENCOUNTERS from 1974 to 2021-07-16 Encounter Location Date Provider Diagnosis [facility] [address] [place] [address] Jul, Jose Miguel Campuzano IMMUNIZATIONS Vaccine Route Administration Date Status Influenza [...] Education Language: Question Answer Notes Languages spoken: Uzbek Confucianist: Question Answer Notes Confucianist 08 [employer] Drug and Alcohol Question Answer Notes Total [...] Information RESULTS No Results REASON FOR VISIT created in error MEDICAL (GENERAL) HISTORY Type Description Date Medical History high cholesterol and triglysorides Medical History anxiety, depression and PTSD Medical History bipolar depression in hx Medical History [place] Medical History Gastric Bypass Medical History Low back pain Medical History GERD Medical History Gastroparesis Medical History arthritis Medical History hiatal hernia Medical History rectocele Medical History abnormal uterine bleeding Medical History NSTEMI Medical History HTN Surgical History D&C 2000 Surgical History cholecystectomy 2002 Surgical History hernia repair x2 Surgical History back discectomy Lumbar region 2017 Surgical History gastric bypass 10/06/172017 Surgical History Right knee Arthroscopy 2007 Surgical History Cardiac Catheterization 06/2018 Surgical History RIGHT KNEE REPLACEMENT 06/2019 Surgical History EGD 07/2010 Surgical History RALH, OBS, cystoscopy 02/12/20 Hospitalization History surgery related [facility] 1999 Hospitalization History Chest pain 03/07/2018 Hospitalization History [place] 06/2018 Hospitalization History seizure - was taken of medications Goals Section No Information Health Concerns No Information MEDICAL EQUIPMENT No Information MENTAL STATUS No Information FUNCTIONAL STATUS No Information ASSESSMENTS No Information PLAN OF TREATMENT Medication Medication Name Sig Start Date Stop Date Iron (Ferrous Sulfate) 325 (65 Fe) MG 1 tablet Orally every other day for 30 day(s) Jun, Next Appt Details Provider Name:Jorge Castellanos, 2021-07-22 11:00:00 AM, [address] [facility] [address] [facility], , [place], [address], Provider Name:Jose Miguel Campuzano, 2021-07-27 01 :45:00 PM, [address] [facility], , [place], [address], Provider Name:Genaro Sharpe, 3 02:45:00 PM, [address] [facility], , [place], [address], Insurance Providers Payer Name Payer Address Payer Phone Insured Name Patient Relati onship to Insured Coverage Start Date Coverage End Date [facility] [address] [facility] [id number] [phone] DULCE CHOWDHURY self
--- OUTSIDE RECORDS SUMMARY | 2021-07-21 10:35 | CCD ---
Author Author [facility] Organization [facility] Address Unknown Phone Unavailable Care Team Providers Care Yarn Carrier Name Role Phone Jose Miguel Campuzano Unavailable PROBLEMS Type Condition ICD9-CM Code HHD77-PY Code Onset Dates Condition S tatus W/U Status Risk SNOMED Code Notes Problem Personal history of other diseases of the digestive system Z87.19 Active confirmed 198056225 Problem Seasonal allergies J30.2 Active confirmed 4 34797456 Problem Screening for diabetes mellitus Z13.1 Active confi rmed 077360108 Problem NSTEMI (non-ST elevated myocardial infarction) I21 .4 Active confirmed 671560002 Problem Essential hypertension I10 Active confirmed 45309179 Problem Sacroiliitis M46.1 Active confirmed 6127493 9 Problem Cervical disc disorder at C5-C6 level with radiculopathy M50.122 Active confirmed 287209425 Problem Asymptomatic postprocedural ovarian failure E89.40 Active confirmed 665260752 Problem Hyperlipidemia, unspecified hyperlipidemia type E7 8.5 Active confirmed 49733733 Problem Environmental allergies Z91.09 Active confirmed 566520472 Problem Chronic GERD K21.9 Active confirmed 3903693 09 Problem Anxiety F41.9 Active confirmed 10393317 Problem Hypoglycemia E16.2 Active confirmed 4289926 03 Problem Other chronic pain G89.29 Active confirmed 8 5629689 Problem Sleep walking F51.3 Active confirmed 373238 09 Problem Spondylosis of lumbar region without myelopathy or radiculopathy M47.816 Active confirmed 107258613 Problem Lumbar radiculopathy M54.16 Active confirmed 670327337 Problem Primary osteoarthritis of right knee M17.11 Act kevin confirmed 153751051933164 Problem Myalgia M79.1 Active confirmed 63786792 Problem Bipolar 2 disorder F31.81 Active confirmed 8 0752032 Problem Other specified postprocedural states Z98.890 Ac tive confirmed 29676616978396 Problem Spondylosis of lumbosacral region without myelop athy or radiculopathy M47.817 Active confirmed 03713063 Problem Post laminectomy syndrome M96.1 Active confirmed 01461652 Problem Abnormal uterine bleeding (AUB) N93.9 Active confirmed 66010787906592 Problem Sleep apnea, obstructive G47.33 Active confirmed 34500682 Problem Abnormal uterine bleeding N93.9 Active confirmed 43445217040470 Problem Other depression F32.89 Active confirmed 354 06668 Problem H/O: hysterectomy Z90.710 Active confirmed 1 15427968 Problem Post-laminectomy syndrome M96.1 Active confirmed 28759472 Problem Anxiety with depression F41.8 Active confirmed 779498138 Problem 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 K 91.2 Active confirmed 966302915 Problem Labile hypertension R09.89 Active confirmed 102071008 Problem Iron deficiency anemia, unspecified iron deficiency an emia type D50.9 Active confirmed 20055568 Problem Sacroiliitis, not elsewhere classified M46.1 A ctive confirmed 58139926 Problem Substance abuse F19.10 Active confirmed 6621 4007 Problem PTSD (post-traumatic stress disorder) F43.10 Ac tive confirmed 65776178 Problem Cannabis use disorder, mild, abuse F12.10 Activ e confirmed 40896071 Problem Moderate episode of recurrent major depressive disorder F33.1 Active confirmed 152290763 Problem Lumbar post-laminectomy syndrome M96.1 Active conf irmed 237929193 ALLERGIES Allergen (clinical drug ingredient) Drug/Non Drug Allergy do cumented on EMR Reaction Allergy Type Onset Date Status Tape Rash Drug Allergy Active Penicillin (For Allergies Use Only) Rash Drug Allerg y Active ENCOUNTERS from 1974 to 2021-07-01 Encounter Location Date Provider Diagnosis [facility] Resident [address] [facility] [address] [phone] [place] [address] 18 Jun, 2021 Jose Miguel Barkin Wound of right lower extremity, initial encounter S81.801A ; 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 K91.2 and Iron deficiency anemia, unspecified iron deficiency anemia type D50.9 IMMUNIZATIONS Vaccine Route Administration Date Status Influenza [...] Education Language: Question Answer Notes Languages spoken: Spanish Congregational: Question Answer Notes Congregational 08 [employer] Drug and Alcohol Question Answer Notes Total Score: 1 Interpretation: Low level Alcohol Screening: Question Answer Notes Did you have a drink containing alcohol in the past year? No Points 0 Interpretation Negative Tobacco Use: Question Answer Notes Are you a: former smoker How long has it been since you last smoked? 1-5 years REASON FOR REFERRAL No Information VITAL SIGNS Weight 186.8 lbs Jun, Weight-kg 84.73 kg Jun, Height 67 in Jun, BMI 29.25 kg/m2 Jun, Heart Rate 95 /min Jun, Respiratory Rate 18 /min Jun, Temperature 97.8 degrees Fahrenheit Jun, Oximetry 100 Jun, Blood pressure systolic 110 mm Hg Jun, Blood pressure diastolic 72 mm Hg Jun, MEDICATIONS Medication SIG (Take, [...] Information RESULTS No Results REASON FOR VISIT follow up skin lesion MEDICAL (GENERAL) HISTORY Type Description Date Medical History high cholesterol and triglysorides Medical History anxiety, depression and PTSD Medical History bipolar depression in hx Medical History [place] Medical History Gastric Bypass Medical History Low [...] Hospitalization History surgery related [facility] Hospitalization History Chest pain 03/07/2018 Hospitalization History [place] 06/2018 Hospitalization History seizure - was taken of medications Goals Section No Information Health Concerns No Information MEDICAL EQUIPMENT No Information MENTAL STATUS No Information FUNCTIONAL STATUS No Information ASSESSMENTS Encounter Date Diagnosis Assessment Notes Treatment Notes Treatm ent Clinical Notes Jun, Wound of right lower extremi ty, initial encounter (ICD-10 - S81.801A) Resolving, advised continuing for 3 more days. Patient verbalized understanding and agreement with plan moving forward. Jun, 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 (ICD-10 - K91.2) Advised giving bariatrician a call, Dr. Witt, will get some basic lab work done. Of note the lowest her blood sugar has been at the hospital including the episodes where she has had syncope or a possible seizure has been 66 but this is an outlier and inconsistent. She apparently has been worked up for this some in the past. May consider a CGM device for at least a month to see how bad these episodes are. Patient verbalized understanding and agreement with plan moving forward. Jun, Iron deficiency anemia, unsp ecified iron deficiency anemia type (ICD-10 - D50.9) Her lab work continues to demonstrate normocytic anemia. Iron studies demonstrate low ferritin and low iron. She denies any melena, hematochezia, hematuria, hemoptysis, hematemesis. Some of this may be due to poor iron absorption in the setting of her gastric bypass surgery. She had a colonoscopy prior to her gastric bypass in 2017 that was unremarkable. We will start her on oral iron supplementation every other day. She was advised of the possibility of GI side effects. We will have her follow-up in about a month to repeat lab work. Patient verbalized understanding and agreement with plan moving forward. PLAN OF TREATMENT Medication Medication Name Sig Start Date Stop Date Iron (Ferrous Sulfate) 325 (65 Fe) MG 1 tablet Orally every other day for 30 day(s) Jun, Treatment Notes Assessment Notes Clinical Notes Wound of right lower extremity, initial encounter Resolving, advised continuing for 3 more days. Patient verbalized understanding and agreement with plan moving forward. 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 Advised giving bariatrician a call, Dr. Witt, will get some basic lab work done. Of note the lowest her blood sugar has been at the hospital including the episodes where she has had syncope or a possible seizure has been 66 but this is an outlier and inconsistent. She apparently has been worked up for this some in the past. May consider a CGM device for at least a month to see how bad these episodes are. Patient verbalized understanding and agreement with plan moving forward. Iron deficiency anemia, unspecified iron deficiency anemia t ype Her lab work continues to demonstrate normocytic anemia. Iron studies demonstrate low ferritin and low iron. She denies any melena, hematochezia, hematuria, hemoptysis, hematemesis. Some of this may be due to poor iron absorption in the setting of her gastric bypass surgery. She had a colonoscopy prior to her gastric bypass in 2017 that was unremarkable. We will start her on oral iron supplementation every other day. She was advised of the possibility of GI side effects. We will have her follow-up in about a month to repeat lab work. Patient verbalized understanding and agreement with plan moving forward. Treatment Notes Test Name Order Date C-PEPTIDE 2021-06-28 INSULIN FREE & TOTAL 2021-06-28 INSULIN ANTIBODY 2021-06-28 GLUCOSE, FASTING 2021-06-28 TSH 2021-06-28 Next Appt Details 4 Weeks Reason:f/u labs, iron Provider Name:Jorge Castellanos, 2021-07-22 11:00:00 AM, [address], , [place], [address], Provider Name:Jose Miguel Campuzano, 2021-07-27 01 :45:00 PM, [address] [facility], , [place], [address], Follow Up:4 Weeksf/u labs, iron Insurance Providers Payer Name Payer Address Payer Phone Insured Name Patient Relati onship to Insured Coverage Start Date Coverage End Date [facility] [place] [address] [facility] [phone] DULCE CHOWDHURY self
--- OUTSIDE RECORDS SUMMARY | 2021-07-21 10:35 | CCD ---
Author Author [facility] Organization [facility] Address Unknown Phone Unavailable Care Team Providers Care Salesperson Flying Squad Name Role Phone Jose Miguel Campuzano Unavailable PROBLEMS Type Condition ICD9-CM Code LVC66-UB Code Onset Dates Condition S tatus W/U Status Risk SNOMED Code Notes Problem Personal history of other diseases of the digestive system Z87.19 Active confirmed 276934250 Problem Seasonal allergies J30.2 Active confirmed 4 96272874 Problem Screening for diabetes mellitus Z13.1 Active confi rmed 059671484 Problem NSTEMI (non-ST elevated myocardial infarction) I21 .4 Active confirmed 190556713 Problem Essential hypertension I10 Active confirmed 08354295 Problem Sacroiliitis M46.1 Active confirmed 0095393 9 Problem Cervical disc disorder at C5-C6 level with radiculopathy M50.122 Active confirmed 714447332 Problem Asymptomatic postprocedural ovarian failure E89.40 Active confirmed 606888864 Problem Hyperlipidemia, unspecified hyperlipidemia type E7 8.5 Active confirmed 70488649 Problem Environmental allergies Z91.09 Active confirmed 036891244 Problem Chronic GERD K21.9 Active confirmed 4337501 09 Problem Anxiety F41.9 Active confirmed 16106300 Problem Hypoglycemia E16.2 Active confirmed 1508775 03 Problem Other chronic pain G89.29 Active confirmed 8 8708737 Problem Sleep walking F51.3 Active confirmed 008686 09 Problem Spondylosis of lumbar region without myelopathy or radiculopathy M47.816 Active confirmed 939115890 Problem Lumbar radiculopathy M54.16 Active confirmed 087260689 Problem Primary osteoarthritis of right knee M17.11 Act kevin confirmed 637222971659185 Problem Myalgia M79.1 Active confirmed 58274421 Problem Bipolar 2 disorder F31.81 Active confirmed 8 9274024 Problem Other specified postprocedural states Z98.890 Ac tive confirmed 44087445215502 Problem Spondylosis of lumbosacral region without myelop athy or radiculopathy M47.817 Active confirmed 48150996 Problem Post laminectomy syndrome M96.1 Active confirmed 17833548 Problem Abnormal uterine bleeding (AUB) N93.9 Active confirmed 57046276609826 Problem Sleep apnea, obstructive G47.33 Active confirmed 89773550 Problem Abnormal uterine bleeding N93.9 Active confirmed 72283154678225 Problem Other depression F32.89 Active confirmed 354 80371 Problem H/O: hysterectomy Z90.710 Active confirmed 1 59690250 Problem Post-laminectomy syndrome M96.1 Active confirmed 29105018 Problem Anxiety with depression F41.8 Active confirmed 411137784 Problem 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 K 91.2 Active confirmed 930649668 Problem Labile hypertension R09.89 Active confirmed 888307488 Problem Iron deficiency anemia, unspecified iron deficiency an emia type D50.9 Active confirmed 08507795 Problem Sacroiliitis, not elsewhere classified M46.1 A ctive confirmed 09335397 Problem Substance abuse F19.10 Active confirmed 6621 4007 Problem PTSD (post-traumatic stress disorder) F43.10 Ac tive confirmed 77261563 Problem Cannabis use disorder, mild, abuse F12.10 Activ e confirmed 39338705 Problem Moderate episode of recurrent major depressive disorder F33.1 Active confirmed 915281659 Problem Lumbar post-laminectomy syndrome M96.1 Active conf irmed 400747396 ALLERGIES Allergen (clinical drug ingredient) Drug/Non Drug Allergy do cumented on EMR Reaction Allergy Type Onset Date Status Tape Rash Drug Allergy Active Penicillin (For Allergies Use Only) Rash Drug Allerg y Active ENCOUNTERS from 1974 to 2021-07-19 Encounter Location Date Provider Diagnosis [address] [phone] [place] [address] Jul, Jose Miguel Campuzano IMMUNIZATIONS Vaccine Route [...] Education Language: Question Answer Notes Languages spoken: Argentine Yarsanism: Question Answer Notes Yarsanism 08 Roman Catholic Drug and Alcohol Question Answer Notes Total [...] Information RESULTS No Results REASON FOR VISIT multiple concerns MEDICAL (GENERAL) HISTORY Type Description Date Medical History high cholesterol and triglysorides Medical History anxiety, depression and PTSD Medical History bipolar depression in hx Medical History [place] Medical History Gastric Bypass Medical History Low [...] Hospitalization History Chest pain 03/07/2018 Hospitalization History [place] 06/2018 Hospitalization History seizure - was taken [...] Provider Name:Jorge Castellanos, 2021-07-22 11:00:00 AM, [address], , [place], [address], Provider Name:Jose Miguel Campuzano, 2021-07-27 01 :45:00 PM, [address] [facility], , [place], [address], Provider Name:Genaro Sharpe, 3 02:45:00 PM, [address] [facility], , [place], [address], Insurance Providers Payer Name Payer Address Payer Phone Insured Name Patient Relati onship to Insured Coverage Start Date Coverage End Date [facility] [place] [address] [facility] [phone] DULCE CHOWDHURY self
--- OUTSIDE RECORDS SUMMARY | 2021-07-21 10:35 | CCD | Continuity of Care Document ---
Author Author Ans/Anne NAGY Organization Unknown Address [address] [place] [address] Phone [phone] Care Team Providers Care Histologist Technologist Name Role Phone Genaro Sharpe M.D. AUTM [phone] Problems Active Problems Provider Date Near syncope [...] lb BMI (Body Mass Index) 29.4 kg/m2 [place] Body Weight 135 lb 01/22/2019 1:23pm BP Systolic 130 mmHg BP Diastolic 78 mmHg Heart Rate 72 /min Respiratory Rate 12 /min Height 67 inches 5'7" Weight 188.00 lb BMI (Body Mass Index) 29.4 kg/m2 [place] Body Weight 135 lb Results Description No Information Available Procedures Date Code Description Status 06/03/2021 07013 Office/Outpatient Established [facility] MDM 40-54 Min Completed Medical Devices Description No Information Available Encounters Type Date Location Provider Dx Diagnosis Office Visit 06/03/2021 2:30p Main office - [place] Sandoval galeano M.D. 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 Plan of Treatment Future Appointment(s):* 09/21/2021 11:15 am - Sandoval Herman M.D. at [facility] * 07/12/2021 1:00 pm - EEG at [facility] Functional Status Description No Information Available Mental Status Description No Information Available Referrals Description No Information Available
--- OUTSIDE RECORDS SUMMARY | 2021-07-21 10:35 | CCD | Continuity of Care Document ---
Author Author Anne CHILDERS Organization Unknown Address [address] [place] [address] Phone [phone] Care Team Providers Care Music Teacher Name Role Phone Genaro Sharpe M.D. AUTM [phone] Problems Active Problems Provider Date Near syncope Sandoval Herman M.D. Onset: 04/25/2016 Social History Type Date Description Comments Sex Unknown Tobacco Use Start: Unknown Patient is a current smoker, smo kes every day Allergies and adverse reactions Active Allergies Criticality [...] lb BMI (Body Mass Index) 29.4 kg/m2 [place] Body Weight 135 lb 01/22/2019 1:23pm BP Systolic 130 mmHg BP Diastolic 78 mmHg Heart Rate 72 /min Respiratory Rate 12 /min Height 67 inches 5'7" Weight 188.00 lb BMI (Body Mass Index) 29.4 kg/m2 [place] Body Weight 135 lb Results Description No Information Available Procedures Date Code Description Status 06/04/2021 61660 Sympathetic Skin Responses Compl eted 06/04/2021 96996 Test Autonomic Nervous System, C ardiovagal Innervation Completed 06/04/2021 22838 Artery Study Extremity Mult Leve ls Bilateral Completed 06/03/2021 00754 Office/Outpatient Established [place] MDM 40-54 Min Completed Medical Devices Description No Information Available Encounters Type Date Location Provider Dx Diagnosis Office Visit 06/03/2021 2:30p Main office - [place] Sandoval galeano M.D. G40.309 Gen idiopathic epilepsy, [...] 11:15 am - Sandoval Herman M.D. at [facility] office - [place] Functional Status Description No Information Available Mental Status Description No Information Available Referrals Description No Information Available
--- OUTSIDE RECORDS SUMMARY | 2021-07-21 10:35 | CCD ---
Author Author [facility] Organization [facility] Address Unknown Phone Unavailable Care Team Providers Care Digital Imager Name Role Phone Jorge Castellanos Unavailable PROBLEMS Type Condition ICD9-CM Code FSW53-QF Code Onset Dates Condition S tatus W/U Status Risk SNOMED Code Notes Problem Other depression F32.89 Active confirmed 354 61938 Problem Hypoglycemia E16.2 Active confirmed 3320388 03 Problem Sleep apnea, obstructive G47.33 Active confirmed 36348633 Problem Personal history of other diseases of the digestive system Z87.19 Active confirmed 547644714 Problem Anxiety F41.9 Active confirmed 18046441 Problem Seasonal allergies J30.2 Active confirmed 4 68565141 Problem Screening for diabetes mellitus Z13.1 Active confi rmed 946588683 Problem Bipolar 2 disorder F31.81 Active confirmed 8 7344149 Problem Hyperlipidemia, unspecified hyperlipidemia type E7 8.5 Active confirmed 89516065 Problem Spondylosis of lumbar region without myelopathy or radiculopathy M47.816 Active confirmed 969963548 Problem Post laminectomy syndrome M96.1 Active confirmed 92550085 Problem Other specified postprocedural states Z98.890 Ac tive confirmed 39308414385509 Problem Chronic GERD K21.9 Active confirmed 0718821 09 Problem Sacroiliitis, not elsewhere classified M46.1 A ctive confirmed 56974075 Problem Cervical disc disorder at C5-C6 level with radiculopathy M50.122 Active confirmed 643755115 Problem Substance abuse F19.10 Active confirmed 6621 4007 Problem Labile hypertension R09.89 Active confirmed 029250137 Problem Other chronic pain G89.29 Active confirmed 8 2220718 Problem Sleep walking F51.3 Active confirmed 874495 09 Problem Spondylosis of lumbosacral region without myelop athy or radiculopathy M47.817 Active confirmed 35712068 Problem Lumbar radiculopathy M54.16 Active confirmed 471597318 Problem Primary osteoarthritis of right knee M17.11 Act kevin confirmed 646460598757846 Problem Myalgia M79.1 Active confirmed 50071849 Problem Abnormal uterine bleeding N93.9 Active confirmed 07428046710935 Problem Abnormal uterine bleeding (AUB) N93.9 Active confirmed 70651663220045 Problem Environmental allergies Z91.09 Active confirmed 615707553 Problem Cannabis use disorder, mild, abuse F12.10 Activ e confirmed 63037772 Problem NSTEMI (non-ST elevated myocardial infarction) I21 .4 Active confirmed 694928105 Problem PTSD (post-traumatic stress disorder) F43.10 Ac tive confirmed 92082796 Problem Essential hypertension I10 Active confirmed 27998070 Problem Sacroiliitis M46.1 Active confirmed 4423219 9 Problem Asymptomatic postprocedural ovarian failure E89.40 Active confirmed 987724197 Problem H/O: hysterectomy Z90.710 Active confirmed 1 95030510 Problem Post-laminectomy syndrome M96.1 Active confirmed 69885154 Problem Anxiety with depression F41.8 Active confirmed 160923509 ALLERGIES Allergen (clinical drug ingredient) Drug/Non Drug Allergy do cumented on EMR Reaction Allergy Type Onset Date Status Penicillin (For Allergies Use Only) Rash Drug Allerg y Active Tape Rash Non Drug Allergy Active ENCOUNTERS from 1974 to 2021-06-04 Encounter Location Date Provider Diagnosis [facility] [address] Floor [phone] [place] [address] May, Jorge Castellanos IMMUNIZATIONS Vaccine Route Administration Date Status Influenza [...] Education Language: Question Answer Notes Languages spoken: Mongolian Hoahaoism: Question Answer Notes Hoahaoism 08 Oriental Orthodox Drug and Alcohol Question Answer Notes Total [...] Information RESULTS No Results REASON FOR VISIT Sz W/O H/O- Change in Medications MEDICAL (GENERAL) HISTORY Type Description Date Medical [...] Chest pain 03/07/2018 Hospitalization History [place] 06/2018 Goals Section No Information Health Concerns [...] 90 Next Appt Details Provider Name:Jose Miguel Campuzano, 2021-06-11 02 :30:00 PM, [address] [facility], , [place], [address], Provider Name:Jorge Castellanos, 2021-06-15 10:00:00 AM, [address], , [place], [address], Provider Name:Jorge Castellanos, 2021-07-07 10:45:00 AM, [address], , [place], [address], Insurance Providers Payer Name Payer Address Payer Phone Insured Name Patient Relati onship to Insured Coverage Start Date Coverage End Date [facility] [place] [address] [facility] [phone] DULCE CHOWDHURY self
--- OUTSIDE RECORDS SUMMARY | 2021-07-21 10:35 | CCD | Continuity of Care Document ---
Author Author Anne GRIDER M.D. Organization Unknown Address [address] [place] [address] Phone [phone] Care Team Providers Care Battalion Chief Name Role Phone Genaro Sharpe M.D. AUTM [phone] Problems Active Problems Provider Date Near syncope [...] lb BMI (Body Mass Index) 29.4 kg/m2 [place] Body Weight 135 lb 01/22/2019 1:23pm BP Systolic 130 mmHg BP Diastolic 78 mmHg Heart Rate 72 /min Respiratory Rate 12 /min Height 67 inches 5'7" Weight 188.00 lb BMI (Body Mass Index) 29.4 kg/m2 [place] Body Weight 135 lb Results Description No Information Available Procedures Date Code Description Status 06/03/2021 58494 Office/Outpatient Established [place] MDM 40-54 Min Completed Medical Devices Description No Information Available Encounters Type Date Location Provider Dx Diagnosis Office Visit 06/03/2021 2:30p Main office - [place] Sandoval galeano M.D. 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 Plan of Treatment Future Appointment(s):* 09/21/2021 11:15 am - Sandoval Grider M.D. at [facility] * 06/04/2021 1:15 pm - Ans/VS at [facility] * 07/12/2021 1:00 pm - EEG at [facility] Functional Status Description No Information Available Mental Status Description No Information Available Referrals Description No Information Available
--- OUTSIDE RECORDS SUMMARY | 2021-07-21 10:35 | CCD ---
Author Author [facility] Organization [facility] Address Unknown Phone Unavailable Care Team Providers Care Factory Focus Technician Name Role Phone Jose Miguel Campuzano Unavailable PROBLEMS Type Condition ICD9-CM Code KSY82-BD Code Onset Dates Condition S tatus W/U Status Risk SNOMED Code Notes Problem Hypoglycemia E16.2 Active confirmed 5748886 03 Problem Personal history of other diseases of the digestive system Z87.19 Active confirmed 171151283 Problem Anxiety F41.9 Active confirmed 51163292 Problem Seasonal allergies J30.2 Active confirmed 4 89373902 Problem Screening for diabetes mellitus Z13.1 Active confi rmed 208983847 Problem NSTEMI (non-ST elevated myocardial infarction) I21 .4 Active confirmed 489942324 Problem Essential hypertension I10 Active confirmed 70771947 Problem Abnormal uterine bleeding (AUB) N93.9 Active confirmed 03840566049956 Problem Other depression F32.89 Active confirmed 354 77963 Problem Abnormal uterine bleeding N93.9 Active confirmed 17810109728496 Problem Other specified postprocedural states Z98.890 Ac tive confirmed 43296302840791 Problem Chronic GERD K21.9 Active confirmed 4418125 09 Problem Sleep apnea, obstructive G47.33 Active confirmed 15793711 Problem Substance abuse F19.10 Active confirmed 6621 4007 Problem Labile hypertension R09.89 Active confirmed 171969487 Problem Other chronic pain G89.29 Active confirmed 8 4936201 Problem Sleep walking F51.3 Active confirmed 087890 09 Problem Spondylosis of lumbosacral region without myelop athy or radiculopathy M47.817 Active confirmed 44177375 Problem Lumbar radiculopathy M54.16 Active confirmed 936947171 Problem Primary osteoarthritis of right knee M17.11 Act kevin confirmed 336671058187936 Problem Myalgia M79.1 Active confirmed 04253250 Problem Bipolar 2 disorder F31.81 Active confirmed 8 3622412 Problem Hyperlipidemia, unspecified hyperlipidemia type E7 8.5 Active confirmed 34668752 Problem Spondylosis of lumbar region without myelopathy or radiculopathy M47.816 Active confirmed 458236713 Problem Post laminectomy syndrome M96.1 Active confirmed 36418252 Problem Environmental allergies Z91.09 Active confirmed 590976686 Problem Asymptomatic postprocedural ovarian failure E89.40 Active confirmed 591841571 Problem H/O: hysterectomy Z90.710 Active confirmed 1 08016873 Problem Moderate episode of recurrent major depressive disorder F33.1 Active confirmed 042613568 Problem Sacroiliitis M46.1 Active confirmed 2409154 9 Problem Lumbar post-laminectomy syndrome M96.1 Active conf irmed 060614699 Problem Cervical disc disorder at C5-C6 level with radiculopathy M50.122 Active confirmed 136514662 Problem Sacroiliitis, not elsewhere classified M46.1 A ctive confirmed 28895354 Problem Post-laminectomy syndrome M96.1 Active confirmed 05268692 Problem Anxiety with depression F41.8 Active confirmed 572632916 Problem PTSD (post-traumatic stress disorder) F43.10 Ac tive confirmed 35697348 Problem Cannabis use disorder, mild, abuse F12.10 Activ e confirmed 00990988 ALLERGIES Allergen (clinical drug ingredient) Drug/Non Drug Allergy do cumented on EMR Reaction Allergy Type Onset Date Status Penicillin (For Allergies Use Only) Rash Drug Allerg y Active Tape Rash Non Drug Allergy Active ENCOUNTERS from 1974 to 2021-06-23 Encounter Location Date Provider Diagnosis [facility] [address] [facility] [phone] [place] [address] Jun, Jose Miguel Campuzano IMMUNIZATIONS Vaccine Route Administration [...] Education Language: Question Answer Notes Languages spoken: Burkinan Pentecostal: Question Answer Notes Pentecostal 08 Jew Drug and Alcohol Question Answer Notes Total [...] the morning Orally Once a day Not-Taking May Have - Free Style Lite test strips As directed four times daily (E11.9) for 30 Days Dec, Active Amitriptyline HCl 25 MG 1 tablet Orally Once a day Active Prazosin HCl 2 MG 1 capsule at bedtime Orally Once a day Active tiZANidine HCl 4 MG 1/2 tablet Orally qhs for 30 Days Not-Taking Pantoprazole Sodium 40 MG 1 tablet orally twice daily for 90 Active Levocetirizine Dihydrochloride 5 MG 1 tablet in the ev ening Orally Once a day for 30 days Active Aspirin 81 MG 1 tablet Orally Once a day for 30 day(s) Active Ziprasidone HCl 60 MG 1 capsule with food Orally Daily Active Atorvastatin Calcium 10 MG 1 tablet Orally Once a day for 30 day(s) Dosage unknown at this time Active PROCEDURES No Information RESULTS No Results REASON FOR VISIT Sore to right leg MEDICAL (GENERAL) HISTORY Type Description Date Medical History high cholesterol and triglysorides Medical History anxiety, depression and PTSD Medical History bipolar depression in hx Medical History [place] Medical History Gastric Bypass Medical History Low [...] Hospitalization History Chest pain 03/07/2018 Hospitalization History [place] 06/[place] Hospitalization History seizure - was taken of medications Goals Section No Information Health Concerns No Information MEDICAL EQUIPMENT No Information MENTAL STATUS No Information FUNCTIONAL STATUS No Information ASSESSMENTS No Information PLAN OF TREATMENT Next Appt Details Provider Name:Jose Miguel Campuzano, 2021-06-24 10 :00:00 AM, [address] [facility], , [place], [address], Provider Name:Jorge Castellanos, 2021-07-07 10:45:00 AM, [address], , [place], [address], Insurance Providers Payer Name Payer Address Payer Phone Insured Name Patient Relati onship to Insured Coverage Start Date Coverage End Date [facility] [address] [facility] [phone] DULCE CHOWDHURY self
--- OUTSIDE RECORDS SUMMARY | 2021-07-21 10:35 | CCD ---
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1 Active confi rmed 104319985 Problem Bipolar 2 disorder F31.81 Active confirmed 8 4251782 Problem Hyperlipidemia, unspecified hyperlipidemia type E7 8.5 Active confirmed 63245033 Problem Spondylosis of lumbar region without myelopathy or radiculopathy M47.816 Active confirmed 383281636 Problem Post laminectomy syndrome M96.1 Active confirmed 42298589 Problem Other specified postprocedural states Z98.890 Ac tive confirmed 76441290609827 Problem Chronic GERD K21.9 Active confirmed 7289421 09 Problem Sacroiliitis, not elsewhere classified M46.1 A ctive confirmed 64015258 Problem Cervical disc disorder at C5-C6 level with radiculopathy M50.122 Active confirmed 457416571 Problem Substance abuse F19.10 Active confirmed 6621 4007 Problem Labile hypertension R09.89 Active confirmed 697182663 Problem Other chronic pain G89.29 Active confirmed 8 2009233 Problem Sleep walking F51.3 Active confirmed 028751 09 Problem Spondylosis of lumbosacral region without myelop athy or radiculopathy M47.817 Active confirmed 84298055 Problem Lumbar radiculopathy M54.16 Active confirmed 964398052 Problem Primary osteoarthritis of right knee M17.11 Act kevin confirmed 203927092401722 Problem Myalgia M79.1 Active confirmed 40386750 Problem Abnormal uterine bleeding N93.9 Active confirmed 59688563804344 Problem Abnormal uterine bleeding (AUB) N93.9 Active confirmed 08350511996285 Problem Environmental allergies Z91.09 Active confirmed 377384927 Problem Cannabis use disorder, mild, abuse F12.10 Activ e confirmed 43642316 Problem NSTEMI (non-ST elevated myocardial infarction) I21 .4 Active confirmed 922393254 Problem PTSD (post-traumatic stress disorder) F43.10 Ac tive confirmed 64336900 Problem Essential hypertension I10 Active confirmed 08989569 Problem Sacroiliitis M46.1 Active confirmed 7785351 9 Problem Asymptomatic postprocedural ovarian failure E89.40 Active confirmed 741250066 Problem H/O: hysterectomy Z90.710 Active confirmed 1 64764112 Problem Post-laminectomy syndrome M96.1 Active confirmed 57047533 Problem Anxiety with depression F41.8 Active confirmed 117309293 ALLERGIES Allergen (clinical drug ingredient) Drug/Non Drug Allergy do cumented on EMR Reaction Allergy Type Onset Date Status Penicillin (For Allergies Use Only) Rash Drug Allerg y Active Tape Rash Non Drug Allergy Active ENCOUNTERS from 1974 to 2021-06-02 Encounter Location Date Provider Diagnosis [address] [phone] [place] [address] 17 May, 2021 Jose Miguel Campuzano IMMUNIZATIONS Vaccine Route Administration [...] Education Language: Question Answer Notes Languages spoken: French Congregational: Question Answer Notes Congregational 08 [employer] Drug and Alcohol Question Answer Notes Total [...] Notes Start Da te End Date Status May Have - Free Style Lite test strips As directed four times daily (E11.9) for 30 Days Dec, Active Wellbutrin SR 100 MG 1 tablet in the morning Orally Once a day Active Prazosin HCl 2 MG 1 capsule at bedtime Orally Once a day Active Pantoprazole Sodium 40 MG 1 tablet orally twice daily for 90 Active Atorvastatin Calcium 10 MG 1 tablet Orally Once a day for 30 day(s) Dosage unknown at this time Active Amitriptyline HCl 25 MG 1 tablet Orally Once a day Active tiZANidine HCl 4 MG 1/2 tablet Orally qhs for 30 Days Active Levocetirizine Dihydrochloride 5 MG 1 tablet in the ev ening Orally Once a day for 30 days Active Docusate Sodium 100 MG 1 cap Orally twice daily Active Aspirin 81 MG 1 tablet Orally Once a day for 30 day(s) Active Ziprasidone HCl 60 MG 1 capsule with food Orally Daily Active PROCEDURES No Information RESULTS No Results REASON FOR VISIT [facility] MEDICAL (GENERAL) HISTORY Type Description Date Medical History high cholesterol and triglysorides Medical History anxiety, depression and PTSD Medical History bipolar depression in hx Medical History [place] Medical History Gastric Bypass Medical History Low [...] Hospitalization History Chest pain 03/07/2018 Hospitalization History [place] 06/2018 Goals Section No Information Health Concerns No Information MEDICAL EQUIPMENT No Information MENTAL STATUS No Information FUNCTIONAL STATUS No Information ASSESSMENTS No Information PLAN OF TREATMENT Medication Medication Name Sig Start Date Stop Date Pantoprazole Sodium 40 MG 1 tablet orally twice daily for 90 Next Appt Details Provider Name:Jose Miguel Campuzano, 2021-06-11 02 :30:00 PM, [address] [facility], , [place], [address], Provider Name:Jorge Castellanos, 2021-07-07 10:45:00 AM, [address], , [place], [address], Insurance Providers Payer Name Payer Address Payer Phone Insured Name Patient Relati onship to Insured Coverage Start Date Coverage End Date [facility] [employer] [facility] [address] [facility] [id number] DULCE CHOWDHURY self
--- OUTSIDE RECORDS SUMMARY | 2021-07-21 10:36 | CCD ---
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 Role Phone Jorge Castellanos Unavailable PROBLEMS Type Condition ICD9-CM Code [id number] Code Onset Dates Condition S tatus W/U Status Risk SNOMED Code Notes Problem Other depression F32.89 Active confirmed 354 77735 Problem Hypoglycemia E16.2 Active confirmed 5677032 03 Problem Sleep apnea, obstructive G47.33 Active confirmed 45793873 Problem Personal history of other diseases of the digestive system Z87.19 Active confirmed 988409619 Problem Anxiety F41.9 Active confirmed 23777606 Problem Seasonal allergies J30.2 Active confirmed 4 79111726 Problem Screening for diabetes mellitus Z13.1 Active confi rmed 719757170 Problem Bipolar 2 disorder F31.81 Active confirmed 8 6112181 Problem Hyperlipidemia, unspecified hyperlipidemia type E7 8.5 Active confirmed 31411297 Problem Spondylosis of lumbar region without myelopathy or radiculopathy M47.816 Active confirmed 697655012 Problem Post laminectomy syndrome M96.1 Active confirmed 62514444 Problem Other specified postprocedural states Z98.890 Ac tive confirmed 19773541298826 Problem Chronic GERD K21.9 Active confirmed 7666510 09 Problem Sacroiliitis, not elsewhere classified M46.1 A ctive confirmed 56013035 Problem Cervical disc disorder at C5-C6 level with radiculopathy M50.122 Active confirmed 300844635 Problem Substance abuse F19.10 Active confirmed 6621 4007 Problem Labile hypertension R09.89 Active confirmed 709479739 Problem Other chronic pain G89.29 Active confirmed 8 8341856 Problem Sleep walking F51.3 Active confirmed 908735 09 Problem Spondylosis of lumbosacral region without myelop athy or radiculopathy M47.817 Active confirmed 74550469 Problem Lumbar radiculopathy M54.16 Active confirmed 048227518 Problem Primary osteoarthritis of right knee M17.11 Act kevin confirmed 029105157637780 Problem Myalgia M79.1 Active confirmed 03237872 Problem Abnormal uterine bleeding N93.9 Active confirmed 92016937596455 Problem Abnormal uterine bleeding (AUB) N93.9 Active confirmed 66514691334364 Problem Environmental allergies Z91.09 Active confirmed 882849583 Problem Cannabis use disorder, mild, abuse F12.10 Activ e confirmed 91331697 Problem NSTEMI (non-ST elevated myocardial infarction) I21 .4 Active confirmed 896252928 Problem PTSD (post-traumatic stress disorder) F43.10 Ac tive confirmed 94087518 Problem Essential hypertension I10 Active confirmed 82275035 Problem Sacroiliitis M46.1 Active confirmed 9335912 9 Problem Asymptomatic postprocedural ovarian failure E89.40 Active confirmed 923083567 Problem H/O: hysterectomy Z90.710 Active confirmed 1 25382778 Problem Post-laminectomy syndrome M96.1 Active confirmed 21009119 Problem Anxiety with depression F41.8 Active confirmed 837823864 ALLERGIES Allergen (clinical drug ingredient) Drug/Non Drug Allergy do cumented on EMR Reaction Allergy Type Onset Date Status Penicillin (For Allergies Use Only) Rash Drug Allerg y Active Tape Rash Non Drug Allergy Active ENCOUNTERS from 1974 to 2021-04-30 Encounter Location Date Provider Diagnosis [facility] [address] [facility] [address] [phone] [place] [address] Apr, Jorge Castellanos Chronic prescription opiate use Z79.891 and Cervical disc disorder at C5-C6 level with radiculopathy M50.122 IMMUNIZATIONS Vaccine Route Administration Date Status Influenza [...] Education Language: Question Answer Notes Languages spoken: Chinese Rastafari: Question Answer Notes Rastafari 08 [employer]ian[employer] Drug and Alcohol Question Answer Notes Total [...] Notes Start Da te End Date Status hydrOXYzine HCl 25 MG 1 tablet as needed Orally every 6 hrs Not-Taking Wellbutrin SR 100 MG 1 tablet in the morning Orally Once a day Active Ziprasidone HCl 60 MG 1 capsule with food Orally Twice a day Active Vitamin D (Ergocalciferol) 21493 UNIT 1 capsule Orally weekl y pt states hasn't had in a few months 11/26/19 Not-Taking Levocetirizine Dihydrochloride 5 MG 1 tablet in the ev ening Orally Once a day for 30 days Active Aspirin 81 MG 1 tablet Orally Once a day for 30 day(s) Active traMADol HCl 50 MG 1 tablet as needed Orally ev francoise 6 hrs prn pain MDD=4 for 30 Days Apr, Active Amitriptyline HCl 25 MG 1 tablet Orally Once a day Active Pantoprazole Sodium 40 MG 1 tablet orally twice daily for 90 Active One Touch/One Touch II Starter - Dx;E11.9 In Vitro four time s daily for 99 days Dec, Active OLANZapine 5 MG 1 tablet Orally PRN Active Atorvastatin Calcium 10 MG 1 tablet Orally Once a day for 30 day(s) Dosage unknown at this time Active KlonoPIN 0.5 MG 1/2 tablet at bedtime Orally Once a day, MDD=1 for 28 day(s) Has not been taking at this time Active tiZANidine HCl 4 MG 1/2 tablet Orally qhs for 30 Days Active May Have - Free Style Lite test strips As directed four times daily (E11.9) for 30 Days Dec, Active Prazosin HCl 2 MG 1 capsule at bedtime Orally Once a day Active PROCEDURES No Information RESULTS No Results REASON FOR VISIT TRAMADOL, TIZANIDINE REFILL MEDICAL (GENERAL) HISTORY Type Description Date Medical History high cholesterol and triglysorides Medical History anxiety, depression and PTSD Medical History bipolar depression in hx Medical History [place] Medical History Gastric Bypass Medical History Low [...] Hospitalization History Chest pain 03/07/2018 Hospitalization History [place] 06/2018 Goals Section No Information Health Concerns No Information MEDICAL EQUIPMENT No Information MENTAL STATUS No Information FUNCTIONAL STATUS No Information ASSESSMENTS Encounter Date Diagnosis Assessment Notes Treatment Notes Treatm ent Clinical Notes Apr, Chronic prescription opiate use (ICD-10 - Z79.89 1) Apr, Cervical disc disorder at C5 -C6 level with radiculopathy (ICD-10 - M50.122) PLAN OF TREATMENT Medication Medication Name Sig Start Date Stop Date traMADol HCl 50 MG 1 tablet as needed Orally ev francoise 6 hrs prn pain MDD=4 for 30 Days Apr, tiZANidine HCl 4 MG 1/2 tablet Orally qhs for 30 Days Levocetirizine Dihydrochloride 5 MG 1 tablet in the ev ening Orally Once a day for 30 days Next Appt Details Provider Name:Jorge Castellanos, 2021-07-07 10:45:00 AM, [address], , [place], [address], Insurance Providers Payer Name Payer Address Payer Phone Insured Name Patient Relati onship to Insured Coverage Start Date Coverage End Date [facility] [employer] [facility] [address] [facility] [phone] DULCE CHOWDHURY
--- OUTSIDE RECORDS SUMMARY | 2021-07-21 10:36 | CCD ---
Author Author [facility] Organization [facility] Address Unknown Phone Unavailable Care Team Providers Care Grades 9 12 Tutor Name Role Phone GUY, H BREN SENIOR TECHNICAL SUPPORT ENGINEER Unavailable Unavailable GUY, H BREN SENIOR TECHNICAL SUPPORT ENGINEER Unavailable Unavailable GUY, H BREN SENIOR TECHNICAL SUPPORT ENGINEER Unavailable Unavailable GUY, H BREN SENIOR TECHNICAL SUPPORT ENGINEER Unavailable Unavailable GUY, H BREN SENIOR TECHNICAL SUPPORT ENGINEER Unavailable Unavailable GUY, H BREN SENIOR TECHNICAL SUPPORT ENGINEER Unavailable Unavailable GUY, H BREN SENIOR TECHNICAL SUPPORT ENGINEER Unavailable Unavailable GUY, H BREN SENIOR TECHNICAL SUPPORT ENGINEER Unavailable Unavailable GUY, H BREN SENIOR TECHNICAL SUPPORT ENGINEER Unavailable Unavailable Barroso, L Ailyn PA Unavailable Unavailable Barroso, L Ailyn PA Unavailable Unavailable Barroso, L Ailyn PA Unavailable Unavailable Barroso, L Ailyn PA Unavailable Unavailable Barroso, L Ailyn PA Unavailable Unavailable Barroso, L Ailyn PA Unavailable Unavailable Barroso, L Ailyn PA Unavailable Unavailable Barroso, L Ailyn PA Unavailable Unavailable Barroso, L Ailyn PA Unavailable Unavailable Barroso, L Ailyn PA Unavailable Unavailable Barroso, L Ailyn PA Unavailable Unavailable Barroso, L Ailyn PA Unavailable Unavailable Barroso, L Ailyn PA Unavailable Unavailable Barroso, L Ailyn PA Unavailable Unavailable Barroso, L Ailyn PA Unavailable Unavailable Barroso, L Ailyn PA Unavailable Unavailable Barroso, L Ailyn PA Unavailable Unavailable Barroso, L Ailyn PA Unavailable Unavailable Barroso, L Ailyn PA Unavailable Unavailable Barroso, L Ailyn PA Unavailable Unavailable Barroso, L Ailyn PA Unavailable Unavailable Barroso, L Ailyn PA Unavailable Unavailable Barroso, L Ailyn PA Unavailable Unavailable Barroso, L Ailyn PA Unavailable Unavailable Barroso, L Ailyn PA Unavailable Unavailable Barroso, L Ailyn PA Unavailable Unavailable Barroso, L Ailyn PA Unavailable Unavailable Barroso, L Ailyn PA Unavailable Unavailable Barroso, L Ailyn PA Unavailable Unavailable Barroso, L Ailyn PA Unavailable Unavailable Barroso, L Ailyn PA Unavailable Unavailable Barroso, L Ailyn PA Unavailable Unavailable Barroso, L Ailyn PA Unavailable Unavailable Barroso, L Ailyn PA Unavailable Unavailable Barroso, L Ailyn PA Unavailable Unavailable Barroso, L Ailyn PA Unavailable Unavailable Barroso, L Aiyln PA Unavailable Unavailable Barroso, L Ailyn PA Unavailable Unavailable Barroso, L Ailyn PA Unavailable Unavailable Marion Herman MD Unavailable Unavailable Marion Herman MD Unavailable Unavailable Marion Herman MD Unavailable Unavailable Marion Herman MD Unavailable Unavailable Marion Herman MD Unavailable Unavailable Marion Herman MD Unavailable Unavailable Marion Herman MD Unavailable Unavailable Marion Herman MD Unavailable Unavailable Marion Herman MD Unavailable Unavailable Marion Herman MD Unavailable Unavailable Marion Herman MD Unavailable Unavailable Marion Herman MD Unavailable Unavailable Marion Herman MD Unavailable Unavailable Marion Herman MD Unavailable Unavailable Marion Herman MD Unavailable Unavailable Marion Herman MD Unavailable Unavailable Marion Herman MD Unavailable Unavailable Marion Herman MD Unavailable Unavailable Marion Herman MD Unavailable Unavailable Marion Herman MD Unavailable Unavailable Marion Herman MD Unavailable Unavailable Marion Herman MD Unavailable Unavailable Marion Herman MD Unavailable Unavailable Marion Herman MD Unavailable Unavailable Marion Herman MD Unavailable Unavailable Marion Herman MD Unavailable Unavailable Marion Herman MD Unavailable Unavailable Marion Herman MD Unavailable Unavailable Marion Herman MD Unavailable Unavailable Marion Herman MD Unavailable Unavailable Marion Herman MD Unavailable Unavailable Marion Herman MD Unavailable Unavailable Marion Herman MD Unavailable Unavailable Marion Herman MD Unavailable Unavailable Marion Herman MD Unavailable Unavailable Marion Herman MD Unavailable Unavailable Marion Herman MD Unavailable Unavailable Marion Herman MD Unavailable Unavailable Marion Herman MD Unavailable Unavailable Marion Herman MD Unavailable Unavailable Marion Herman MD Unavailable Unavailable Marion Herman MD Unavailable Unavailable Marion Herman MD Unavailable Unavailable Marion Herman MD Unavailable Unavailable Marion Herman MD Unavailable Unavailable Marion Herman MD Unavailable Unavailable Marion Herman MD Unavailable Unavailable Virgil, O Samah MD Unavailable Unavailable Virgil, O Samah MD Unavailable Unavailable Virgil, O Samah MD Unavailable Unavailable Virgil, O Samah MD Unavailable Unavailable Virgil, O Samah MD Unavailable Unavailable Virgil, O Samah MD Unavailable Unavailable Virgil, O Samah MD Unavailable Unavailable Virgil, O Samah MD Unavailable Unavailable Virgil, O Samah MD Unavailable Unavailable Virgil, O Samah MD Unavailable Unavailable Virgil, O Samah MD Unavailable Unavailable Virgil, O Samah MD Unavailable Unavailable Virgil, O Samah MD Unavailable Unavailable Virgil, O Samah MD Unavailable Unavailable Virgil, O Samah MD Unavailable Unavailable Virgil, O Samah MD Unavailable Unavailable Virgil, O Samah MD Unavailable Unavailable Virgil, O Samah MD Unavailable Unavailable Virgil, O Samah MD Unavailable Unavailable Virgil, O Samah MD Unavailable Unavailable Virgil, O Samah MD Unavailable Unavailable Virgil, O Samah MD Unavailable Unavailable Virgil, O Samah MD Unavailable Unavailable Virgil, O Samah MD Unavailable Unavailable Virgil, O Samah MD Unavailable Unavailable Virgil, O Samah MD Unavailable Unavailable Virgil, O Samah MD Unavailable Unavailable Virgil, O Samah MD Unavailable Unavailable Virgil, O Samah MD Unavailable Unavailable Virgil, O Samah MD Unavailable Unavailable Virgil, O Samah MD Unavailable Unavailable Virgil, O Samah MD Unavailable Unavailable Rowena, N Mars SENIOR TECHNICAL SUPPORT ENGINEER Unavailable Unavailable Rowena, N Mars SENIOR TECHNICAL SUPPORT ENGINEER Unavailable Unavailable [place], N Mars SENIOR TECHNICAL SUPPORT ENGINEER Unavailable Unavailable [place], N Mars SENIOR TECHNICAL SUPPORT ENGINEER Unavailable Unavailable [place], N Mars SENIOR TECHNICAL SUPPORT ENGINEER Unavailable Unavailable Rowena, N Mars SENIOR TECHNICAL SUPPORT ENGINEER Unavailable Unavailable Rowena, N Mars SENIOR TECHNICAL SUPPORT ENGINEER Unavailable Unavailable [place], N Mars SENIOR TECHNICAL SUPPORT ENGINEER Unavailable Unavailable [place], N Mars SENIOR TECHNICAL SUPPORT ENGINEER Unavailable Unavailable [place], N Mars SENIOR TECHNICAL SUPPORT ENGINEER Unavailable Unavailable [place], N Mars SENIOR TECHNICAL SUPPORT ENGINEER Unavailable Unavailable Rowena, N Mars SENIOR TECHNICAL SUPPORT ENGINEER Unavailable Unavailable Rowena, N Mars SENIOR TECHNICAL SUPPORT ENGINEER Unavailable Unavailable Rowena, N Mars SENIOR TECHNICAL SUPPORT ENGINEER Unavailable Unavailable Rowena, N Mars SENIOR TECHNICAL SUPPORT ENGINEER Unavailable Unavailable [place], N Mars SENIOR TECHNICAL SUPPORT ENGINEER Unavailable Unavailable Rowena, N Mars SENIOR TECHNICAL SUPPORT ENGINEER Unavailable Unavailable [place], N Mars SENIOR TECHNICAL SUPPORT ENGINEER Unavailable Unavailable [place], N Mars SENIOR TECHNICAL SUPPORT ENGINEER Unavailable Unavailable Rowena, N Mars SENIOR TECHNICAL SUPPORT ENGINEER Unavailable Unavailable [place], N Mars SENIOR TECHNICAL SUPPORT ENGINEER Unavailable Unavailable Rowena, N Mars SENIOR TECHNICAL SUPPORT ENGINEER Unavailable Unavailable Rowena, N Mars SENIOR TECHNICAL SUPPORT ENGINEER Unavailable Unavailable Rowena, N Mars SENIOR TECHNICAL SUPPORT ENGINEER Unavailable Unavailable [place], N Mars SENIOR TECHNICAL SUPPORT ENGINEER Unavailable Unavailable Rowena, N Mars SENIOR TECHNICAL SUPPORT ENGINEER Unavailable Unavailable [place], N Mars SENIOR TECHNICAL SUPPORT ENGINEER Unavailable Unavailable [place], N Mars SENIOR TECHNICAL SUPPORT ENGINEER Unavailable Unavailable Rowena, N Mars SENIOR TECHNICAL SUPPORT ENGINEER Unavailable Unavailable [place], N Mars SENIOR TECHNICAL SUPPORT ENGINEER Unavailable Unavailable [place], N Mars SENIOR TECHNICAL SUPPORT ENGINEER Unavailable Unavailable [place], N Mars SENIOR TECHNICAL SUPPORT ENGINEER Unavailable Unavailable [place], N Mars SENIOR TECHNICAL SUPPORT ENGINEER Unavailable Unavailable Re-disclosure Warning The records that you are about to access may contain information from federally-assisted alcohol or drug abuse programs. If such information is present, then the following federally mandated warning applies: This information has been disclosed to you from records protected by federal confidentiality rules (42 CFR part 2). The federal rules prohibit you from making any further disclosure of this information unless further disclosure is expressly permitted by the written consent of the person to whom it pertains or as otherwise permitted by 42 CFR part 2. A general authorization for the release of medical or other information is NOT sufficient for this purpose. The Federal rules restrict any use of the information to criminally investigate or prosecute any alcohol or drug abuse patient.The records that you are about to access may contain highly sensitive health information, the redisclosure of which is protected by Article 27-F of the [facility] Public Health law. If you continue you may have access to information: Regarding HIV / AIDS; Provided by facilities licensed or operated by the [facility] Office of Mental Health; or Provided by the [facility] Office for People With Developmental Disabilities. If such information is present, then the following [facility] mandated warning applies: This information has been disclosed to you from confidential records which are protected by state law. State law prohibits you from making any further disclosure of this information without the specific written consent of the person to whom it pertains, or as otherwise permitted by law. Any unauthorized further disclosure in violation of state law may result in a fine or [place] health care facility sentence or both. A general authorization for the release of medical or other information is NOT sufficient authorization for further disc losure. Allergies and Adverse Reactions Type Description Substance Reaction Status Data Source(s ) Propensity to adverse reactions to substance penicillin v po tassium Penicillin V Potassium 250 MG Oral Tablet urticaria (hives) Active [facility] ( [facility]) Propensity to adverse reactions to substance sertraline Sertraline 25 MG Oral Tablet Active [facility] ([facility]) Propensity to adverse reactions to substance penicillin v po tassium Penicillin V Potassium 250 MG Oral Tablet urticaria (hives) Active [facility] ( [facility]) Propensity to adverse reactions to substance sertraline Sertraline 25 MG Oral Tablet Active [facility] ([facility]) Family History Family Member Name Family Member Gender Family Member Status Date o f Status Description Data Source(s) Unknown Unknown Problem [facility], ) Encounters Encounter Providers Location Date Indications Data Source(s ) [place] [address] [facility] [address] 07/16/2021 12:00:00 AM EDT eCW1 ([facility]) Outpatient Attender: BREN MURRIETA NP [facility] L[place] trina 07/14/2021 03:30:00 AM EDT - 07/14/2021 03:30:00 AM EDT [facility] ([facility]) Attender: BREN MURRIETA NP 07/14/2021 12:00:00 AM EDT [facility] ([facility]) [place]patient [address] [facility] [address] 06/28/2021 12:00:00 AM EDT eCW1 ([facility]) [place] [address] [facility] [address] 06/23/2021 12:00:00 AM EDT eCW1 ([facility]) Outpatient Attender: BREN MURRIETA NP [facility] [place] trina 06/15/2021 01:30:00 AM EDT - 06/15/2021 01:30:00 AM EDT [facility] ([facility]) [place] [address] [facility] [address] 06/15/2021 12:00:00 AM EDT [facility]CW1 [facility] Attender: BREN MURRIETA NP 06/15/2021 12:00:00 AM EDT [facility] ([facility]) [place] [address] [facility] [address] 06/11/2021 12:00:00 AM EDT [facility] Unknown [address] [facility] [place] [address] 06/04/2021 12:00:00 AM EDT [facility]CW1 [facility] Outpatient Attender: Sandoval Herman MD Main office - [facility] 06/03/2021 02:30:00 PM EDT [facility] ([facility]) Outpatient GABRIELE-SJFREDDY 06/03/2021 12:00:00 AM EDT [facility] [place] [address] [facility] [address] 06/01/2021 12:00:00 AM EDT [facility] [place] [address] [facility] [place] [address] 05/31/2021 12:00:00 AM EDT [facility]) [place] [address] [facility] [place] [address] 05/28/2021 12:00:00 AM EDT [facility]) [place] [address] [facility] [address] 04/29/2021 12:00:00 AM EDT [facility]1 [facility]) Outpatient Attender: BREN MURRIETA NP [facility] 04/13/2021 02:00:00 AM EDT - 04/13/2021 02:00:00 AM EDT [facility] ([facility]) Attender: BREN MURRIETA NP 04/13/2021 12:00:00 AM EDT [facility] ([facility]) [place] [address] [facility] [address] 04/07/2021 12:00:00 AM EDT [facility]1 [facility] [place] [address] [facility] [address] 04/06/2021 12:00:00 AM EDT [facility]CW1 ([facility]) [place] [address] [facility] [address] 03/31/2021 12:00:00 AM EDT [facility] [place] [address] [facility] [address] 03/01/2021 12:00:00 AM EDT [facility]) Outpatient Attender: Ailyn Hernandez: Son TOWNSEND.LASHANDA-SJP.LASHANDA 02/11/2021 12:00:00 AM EDT - 02/11/2021 04:04:33 PM EDT [facility] Outpatient Referrer: Ailyn REDDYLASHANDA-SJP.LASHANDA 11/2020 12:00:00 AM EDT [facility] Unknown [address] [facility] [address] 01/27/2021 12:00:00 AM EDT [facility] Unknown [address] [facility] [place] [address] 01/07/2021 12:00:00 AM EDT eCW1 ([facility] [place] [address] [facility] [address] 01/05/2021 12:00:00 AM EDT [facility]CW1 ([facility]) [place]patient [address] [facility] [address] 01/05/2021 12:00:00 AM EDT eCW1 ([facility]) Unknown [address] [facility] [place] [address] 12/28/2020 12:00:00 AM EDT eCW1 ([facility]) Unknown [address] [facility] [place] [address] 12/25/2020 12:00:00 AM EDT eCW1 ([facility] [place] [address] [facility] [address] 12/18/2020 12:00:00 AM EDT eCW1 ([facility]) Outpatient Attender: Ailyn TOWNSEND.LASHANDA-SJP.LASHANDA 03/2021 03:08:55 PM EDT - 12/17/2020 11:12:24 AM EDT [facility] Outpatient Attender: BREN MURRIETA NP [facility] [place] mena 12/15/2020 04:30:00 AM EDT - 12/15/2020 04:30:00 AM EDT [facility] ([facility]) Attender: BREN MURRIETA NP 12/15/2020 12:00:00 AM EDT [facility] ([facility]) Outpatient Attender: BREN MURRIETA NP [facility] [place] men[place] 12/09/2020 04:30:00 AM EDT - 12/09/2020 04:30:00 AM EDT [facility] ([facility]) Attender: BREN MURRIETA NP 12/09/2020 12:00:00 AM EDT [facility] ([facility]) [place] [address] [facility] [address] 12/07/2020 12:00:00 AM EDT eCW1 ([facility] [place] [address] [facility] [address] 11/24/2020 12:00:00 AM EDT eCW1 ([facility] [place] [address] [facility] [address] 11/17/2020 12:00:00 AM EST eCW1 ([facility]) Outpatient Attender: BREN MURRIETA NP [facility] [place] 11/09/2020 04:00:00 AM EST - 11/09/2020 04:00:00 AM EST [facility] ([facility]) Attender: BREN MURRIETA NP 11/09/2020 12:00:00 AM EST [facility] ([facility]) [place] [address] [facility] [address] 10/26/2020 12:00:00 AM EST [facility]1 [facility] [place] [address] [facility] [address] 10/23/2020 12:00:00 AM EST eCW1 ([facility]) Outpatient Attender: BREN MURRIETA NP [facility] 10/12/2020 04:00:00 AM EST - 10/12/2020 04:00:00 AM EST [facility] ([facility]) Attender: BREN MURRIETA NP 10/12/2020 12:00:00 AM EST [facility] ([facility]) [place] [address] [facility] [address] 10/09/2020 12:00:00 AM EST eCW1 ([facility]) [place]patient [address] [facility] [address] 10/08/2020 12:00:00 AM EST eCW1 ([facility]) Unknown [address] [facility] [place] [address] 10/08/2020 12:00:00 AM EST eCW1 ([facility]) [place]patient [address] [facility] [address] 10/07/2020 12:00:00 AM EST eCW1 ([facility]) Unknown [address] [facility] [place] [address] 09/28/2020 12:00:00 AM EST eCW1 ([facility]) [place] [address] [facility] [address] 09/24/2020 12:00:00 AM EST eCW1 ([facility]) [place] [address] [facility] [address] 08/31/2020 12:00:00 AM EST [facility] Outpatient Attender: BREN MURRIETA NP [facility] [place] 08/26/2020 01:00:00 AM EST - 08/26/2020 01:00:00 AM EST [facility] ([facility]) Attender: BREN MURRIETA NP 08/26/2020 12:00:00 AM EST [facility] Unknown [address] [facility] [address] 08/21/2020 12:00:00 AM EST eCW1 [facility] Outpatient [address] [facility] [address] 08/20/2020 12:00:00 AM EST eCW1 ([facility]) Outpatient Attender: Mars Guaman NP SJP.LASHANDA-SJP.LASHANDA 08/10/2020 12 :00:00 AM EST [facility] Unknown [address] [facility], [facility] [address] 07/23/2020 12:00:00 AM EST eCW1 ([facility]) Unknown [address] [facility] [address] 07/23/2020 12:00:00 AM EST eCW1 ([facility]) Outpatient Attender: BREN MURRIETA NP [facility] [place] trina 07/21/2020 11:00:00 AM EST - 07/21/2020 11:00:00 AM EST [facility] ([facility]) Attender: BREN MURRIETA NP 07/21/2020 12:00:00 AM EST [facility] ([facility]) Unknown [address] [facility] Y [address] 07/09/2020 12:00:00 AM EDT [facility] Unknown [address] [facility] [place] [address] 07/08/2020 12:00:00 AM EDT eCW1 ([facility] [place] [address] [facility] [address] 07/07/2020 12:00:00 AM EDT eCW1 ([facility]) Unknown [address] [facility] [address] 07/07/2020 12:00:00 AM EDT eCW1 ([facility]) Unknown [address] [facility] [place] [address] 06/25/2020 12:00:00 AM EDT eCW1 ([facility]) Outpatient Attender: BREN MURRIETA NP [facility] trina 06/10/2020 11:00:00 AM EDT - 06/10/2020 11:00:00 AM EDT [facility] ([facility]) Attender: BREN MURRIETA NP 06/10/2020 12:00:00 AM EDT [facility] ([facility]) Functional Status Immunizations Vaccine Date Status Description Data Source(s) influenza, recombinant, quadrIvalent,injectable, prese rvative free 06/11/2021 04:34:00 PM EDT completed eCW1 ([facility]) influenza, recombinant, quadrIvalent,injectable, prese rvative free 06/11/2021 04:34:00 PM EDT completed eCW1 ([facility]) influenza, recombinant, quadrIvalent,injectable, prese rvative free 06/11/2021 04:34:00 PM EDT completed eCW1 ([facility]) influenza, recombinant, quadrIvalent,injectable, prese rvative free 06/11/2021 04:34:00 PM EDT completed eCW1 ([facility]) influenza, recombinant, quadrIvalent,injectable, prese rvative free 06/11/2021 04:34:00 PM EDT completed eCW1 ([facility]) influenza, recombinant, quadrIvalent,injectable, prese rvative free 06/11/2021 04:34:00 PM EDT completed eCW1 ([facility]) COVID-19 VACCINE Moderna 01/02/2021 12:00:00 AM EDT completed [facility] Vaccine Series Complete: NOThis Data was Submitted to [facility] Via [employer]. influenza, recombinant, quadrIvalent,injectable, prese rvative free 08/26/2020 03:35:00 PM EST completed eCW1 ([facility]) influenza, recombinant, quadrIvalent,injectable, prese rvative free 08/26/2020 03:35:00 PM EST completed eCW1 ([facility]) influenza, recombinant, quadrIvalent,injectable, prese rvative free 08/26/2020 03:35:00 PM EST completed eCW1 ([facility]) influenza, recombinant, quadrIvalent,injectable, prese rvative free 08/26/2020 03:35:00 PM EST completed eCW1 ([facility]) influenza, recombinant, quadrIvalent,injectable, prese rvative free 08/26/2020 03:35:00 PM EST completed eCW1 ([facility]) influenza, recombinant, quadrIvalent,injectable, prese rvative free 08/26/2020 03:35:00 PM EST completed eCW1 ([facility]) influenza, recombinant, quadrIvalent,injectable, prese rvative free 08/26/2020 03:35:00 PM EST completed eCW1 ([facility]) influenza, recombinant, quadrIvalent,injectable, prese rvative free 08/26/2020 03:35:00 PM EST completed eCW1 ([facility]) influenza, recombinant, quadrIvalent,injectable, prese rvative free 08/26/2020 03:35:00 PM EST completed eCW1 ([facility]) influenza, recombinant, quadrIvalent,injectable, prese rvative free 08/26/2020 03:35:00 PM EST completed eCW1 ([facility]) influenza, recombinant, quadrIvalent,injectable, prese rvative free 08/26/2020 03:35:00 PM EST completed eCW1 ([facility]) influenza, recombinant, quadrIvalent,injectable, prese rvative free 08/26/2020 03:35:00 PM EST completed eCW1 ([facility]) influenza, recombinant, quadrIvalent,injectable, prese rvative free 08/26/2020 03:35:00 PM EST completed eCW1 ([facility]) influenza, recombinant, quadrIvalent,injectable, prese rvative free 08/26/2020 03:35:00 PM EST completed eCW1 ([facility]) influenza, recombinant, quadrIvalent,injectable, prese rvative free 08/26/2020 03:35:00 PM EST completed eCW1 ([facility]) influenza, recombinant, quadrIvalent,injectable, prese rvative free 08/26/2020 03:35:00 PM EST completed eCW1 ([facility]) influenza, recombinant, quadrIvalent,injectable, prese rvative free 08/26/2020 03:35:00 PM EST completed eCW1 ([facility]) influenza, recombinant, quadrIvalent,injectable, prese rvative free 08/26/2020 03:35:00 PM EST completed eCW1 ([facility]) influenza, recombinant, quadrIvalent,injectable, prese rvative free 08/26/2020 03:35:00 PM EST completed eCW1 ([facility]) influenza, recombinant, quadrIvalent,injectable, prese rvative free 08/26/2020 03:35:00 PM EST completed eCW1 ([facility]) influenza, recombinant, quadrIvalent,injectable, prese rvative free 08/26/2020 03:35:00 PM EST completed eCW1 ([facility]) influenza, recombinant, quadrIvalent,injectable, prese rvative free 08/26/2020 03:35:00 PM EST completed eCW1 ([facility]) influenza, recombinant, quadrIvalent,injectable, prese rvative free 08/26/2020 03:35:00 PM EST completed eCW1 ([facility]) influenza, recombinant, quadrIvalent,injectable, prese rvative free 08/26/2020 03:35:00 PM EST completed eCW1 ([facility]) influenza, recombinant, quadrIvalent,injectable, prese rvative free 08/26/2020 03:35:00 PM EST completed eCW1 ([facility]) influenza, recombinant, quadrIvalent,injectable, prese rvative free 08/26/2020 03:35:00 PM EST completed eCW1 ([facility]) influenza, recombinant, quadrIvalent,injectable, prese rvative free 08/26/2020 03:35:00 PM EST completed eCW1 ([facility]) influenza, recombinant, quadrIvalent,injectable, prese rvative free 08/26/2020 03:35:00 PM EST completed eCW1 ([facility]) influenza, recombinant, quadrIvalent,injectable, prese rvative free 08/26/2020 03:35:00 PM EST completed eCW1 ([facility]) influenza, recombinant, quadrIvalent,injectable, prese rvative free 08/26/2020 03:35:00 PM EST completed eCW1 ([facility]) influenza, recombinant, quadrIvalent,injectable, prese rvative free 08/26/2020 03:35:00 PM EST completed eCW1 ([facility]) influenza, recombinant, quadrIvalent,injectable, prese rvative free 08/26/2020 03:35:00 PM EST completed eCW1 ([facility]) influenza, recombinant, quadrIvalent,injectable, prese rvative free 08/26/2020 03:35:00 PM EST completed eCW1 ([facility]) influenza, recombinant, quadrIvalent,injectable, prese rvative free 08/26/2020 03:35:00 PM EST completed eCW1 ([facility]) Medications Medication Brand Name Start Date Product Form Dose Route Admi nistrative Instructions Pharmacy Instructions Status Indications Reaction Description Data Source(s) 30 mg 07/16/2021 12:00:00 AM EDT capsule,delayed release (DR/EC) 30 TAKE ONE CAPSULE BY MOUTH EVERY DAY AT BEDTIME TAKE ONE CAPSULE BY MOUTH EVERY DAY AT BEDTIME SOLD: 07/16/2021 [facility] Iron (Ferrous Sulfate) 325 (65 Fe) MG Iron (Ferrous Sulfate) 325 (65 Fe) MG 06/28/2021 12:00:00 AM EDT 1.0 {tablet} active Iron (Ferrous Sulfate) 325 (65 Fe) MG eCW1 ([facility]) 325 mg (65 mg iron) 06/28/2021 12:00:00 AM EDT tablet 15 TAKE ONE TABLET BY MOUTH EVERY OTHER DAY TAKE ONE TABLET BY MOUTH EVERY OTHER DAY SOLD: 06/28/2021 [facility] Iron (Ferrous Sulfate) 325 (65 Fe) MG Iron (Ferrous Sulfate) 325 (65 Fe) MG 06/28/2021 12:00:00 AM EDT 1.0 {tablet} active Iron (Ferrous Sulfate) 325 (65 Fe) MG eCW1 ([facility]) Iron (Ferrous Sulfate) 325 (65 Fe) MG Iron (Ferrous Sulfate) 325 (65 Fe) MG 06/28/2021 12:00:00 AM EDT 1.0 {tablet} active Iron (Ferrous Sulfate) 325 (65 Fe) MG eCW1 ([facility]) Iron (Ferrous Sulfate) 325 (65 Fe) MG Iron (Ferrous Sulfate) 325 (65 Fe) MG 06/28/2021 12:00:00 AM EDT 1.0 {tablet} active Iron (Ferrous Sulfate) 325 (65 Fe) MG eCW1 ([facility]) 2 % 06/24/2021 12:00:00 AM EDT ointment 22 APPLY TO AFFECTED AREA(S) THREE TIMES A DAY FOR 5 DAYS APPLY TO AFFECTED AREA(S) THREE TIMES A DAY FOR 5 DAYS SOLD: 06/24/2021 [facility] 25 mg 06/16/2021 12:00:00 AM EDT tablet 30 TAKE ONE TABLET BY MOUTH AT BEDTIME TAKE ONE TABLET BY MOUTH AT BEDTIME SOLD: 06/16/2021 [facility] 2 mg 06/16/2021 12:00:00 AM EDT capsule 30 TAKE ONE CAPSULE BY MOUTH AT BEDTIME TAKE ONE CAPSULE BY MOUTH AT BEDTIME SOLD: 06/16/2021 [facility] 2 mg 06/16/2021 12:00:00 AM EDT capsule 30 TAKE ONE CAPSULE BY MOUTH AT BEDTIME TAKE ONE CAPSULE BY MOUTH AT BEDTIME SOLD: 07/15/2021 [facility] 60 mg 06/16/2021 12:00:00 AM EDT capsule 30 TAKE ONE CAPSULE BY MOUTH EVERY EVENING WITH MEALS AT SUPPER TAKE ONE CAPSULE BY MOUTH EVERY EVENING WITH MEALS AT SUPPER SOLD: 06/16/2021 [facility] 30 mg 06/16/2021 12:00:00 AM EDT capsule,delayed release (DR/EC) 30 TAKE ONE CAPSULE BY MOUTH AT BEDTIME TAKE ONE CAPSULE BY MOUTH AT BEDTIME SOLD: 06/16/2021 [facility] 60 mg 06/16/2021 12:00:00 AM EDT capsule 30 TAKE ONE CAPSULE BY MOUTH EVERY EVENING WITH MEALS AT SUPPER TAKE ONE CAPSULE BY MOUTH EVERY EVENING WITH MEALS AT SUPPER SOLD: 07/15/2021 [facility] 25 mg 06/16/2021 12:00:00 AM EDT tablet 30 TAKE ONE TABLET BY MOUTH AT BEDTIME TAKE ONE TABLET BY MOUTH AT BEDTIME SOLD: 07/15/2021 [facility] duloxetine 30 MG Delayed Release Oral Capsule [Cymbalta] C[facility] 06/15/2021 12:00:00 AM EDT 30 mg by mouth completed <td ID="MedicationRxNorm_1">863455</td><td ID="MedicationMedication_1">Cymbalta</td><td ID="MedicationRoute_1">by mouth</td><td ID="MedicationRouteConcept_1">C42982</td><td ID="MedicationStartDate_1">06/15/2021</td><td ID="MedicationStopDate_1">07/15/2021</td><td ID="MedicationDosageFrequency_1">at bedtime</td><td ID="MedicationDuration_1">30</td><td ID="MedicationFormulaStrength_1">30 mg</td><td ID="MedicationDosageForm_1">capsule,delayed release(DR/EC)</td><td ID="MedicationDosageFormCode_1"></td><td ID="MedicationDosageDescription_1"></td><td ID="MedicationMedicationId_1">[id number]</td><td ID="MedicationAccount_1">[id number]</td><td ID="MedicationNpid_1">[id number]</td><td ID="MedicationAuthorFirstName_1">Bren</td><td ID="MedicationAuthorLastName_1">Guy</td><td ID="MedicationTaxonomyCode_1">[id number]</td><td ID="MedicationTaxonomyDesc_1"> 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</td><td ID="MedicationPhoneNumber_1">[phone]</td> [facility] ([facility]) ziprasidone 60 MG Oral Capsule [Geodon] Geodon 06/15/2021 12: 00:00 AM EDT 60 mg by mouth completed <td ID="Me dicationRxNorm_2">886202</td><td ID="MedicationMedication_2">Geodon</td><td ID="MedicationRoute_2">by mouth</td><td ID="MedicationRouteConcept_2">P21476</td><td ID="MedicationStartDate_2">06/15/2021</td><td ID="MedicationStopDate_2">08/14/2021</td><td ID="MedicationDosageFrequency_2">every evening</td><td ID="MedicationDuration_2">30</td><td ID="MedicationFormulaStrength_2">60 mg</td><td ID="MedicationDosageForm_2">capsule</td><td ID="MedicationDosageFormCode_2"></td><td ID="MedicationDosageDescription_2">with meals</td><td ID="MedicationMedicationId_2">[id number]</td><td ID="MedicationAccount_2">[id number]</td><td ID="MedicationNpid_2">[id number]</td><td ID="MedicationAuthorFirstName_2">Bren</td><td ID="MedicationAuthorLastName_2">Guy</td><td ID="MedicationTaxonomyCode_2">[id number]</td><td ID="MedicationTaxonomyDesc_2">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</td><td ID="MedicationPhoneNumber_2">[phone]</td> [facility] ([facility]) 100 mg 06/03/2021 12:00:00 AM EDT tablet sustained-releas e 12 hr 30 TAKE ONE TABLET BY MOUTH EVERY MORNING TAKE ONE TABLET BY MOUTH EVERY MORNING SOLD: 06/03/2021 [facility] pantoprazole 40 MG Delayed Release Oral Tablet PANTOPRAZOLE SODIUM 06/03/2021 12:00:00 AM EDT tablet,delayed release (DR/EC) 180 T JAMESON ONE TABLET BY MOUTH TWICE A DAY TAKE ONE TABLET BY MOUTH TWICE A DAY SOLD: 06/03/2021 [facility] 50 mg 05/01/2021 12:00:00 AM EDT tablet 120 TAKE 1 TABLET BY MOUTH EVERY 6 HOURS NEEDED FOR PAIN MAXIMUM DAILY DOSE = 4 TABLETS TAKE 1 TABLET BY MOUTH EVERY 6 HOURS NEEDED FOR PAIN MAXIMUM DAILY DOSE = 4 TABLETS SOLD: 05/02/2021 [facility] tizanidine 4 MG Oral Tablet TIZANIDINE HCL 04/30/2021 12:00:00 AM EDT tablet 15 TAKE ONE-HALF TABLET BY MOUTH AT BEDTIME TAKE ONE-HALF TABLET BY MOUTH AT BEDTIME SOLD: 05/29/2021 [facility] tizanidine 4 MG Oral Tablet TIZANIDINE HCL 04/30/2021 12:00:00 AM EDT tablet 15 TAKE ONE-HALF TABLET BY MOUTH AT BEDTIME TAKE ONE-HALF TABLET BY MOUTH AT BEDTIME SOLD: 05/02/2021 [facility] tramadol hydrochloride 50 MG Oral Tablet traMADol HCl 50 MG traMADol HCl 50 MG 04/29/2021 12:00:00 AM EDT 1.0 {tablet_as_needed} active traMADol HCl 50 MG eCW1 ([facility]) 60 mg 04/14/2021 12:00:00 AM EDT capsule 30 TAKE ONE CAPSULE BY MOUTH EVERY EVENING WITH MEALS AT SUPPER TAKE ONE CAPSULE BY MOUTH EVERY EVENING WITH MEALS AT SUPPER SOLD: 04/20/2021 [facility] 5 mg 04/08/2021 12:00:00 AM EDT tablet 30 TAKE ONE TABLET BY MOUTH EVERY EVENING TAKE ONE TABLET BY MOUTH EVERY EVENING SOLD: 05/12/2021 [facility] 5 mg 04/08/2021 12:00:00 AM EDT tablet 30 TAKE ONE TABLET BY MOUTH EVERY EVENING TAKE ONE TABLET BY MOUTH EVERY EVENING SOLD: 04/08/2021 [facility] 5 mg 04/08/2021 12:00:00 AM EDT tablet 30 TAKE ONE TABLET BY MOUTH EVERY EVENING TAKE ONE TABLET BY MOUTH EVERY EVENING SOLD: 07/15/2021 [facility] 5 mg 04/08/2021 12:00:00 AM EDT tablet 30 TAKE ONE TABLET BY MOUTH EVERY EVENING TAKE ONE TABLET BY MOUTH EVERY EVENING SOLD: 06/12/2021 [facility] 100 mg 04/05/2021 12:00:00 AM EDT tablet sustained-releas e 12 hr 30 TAKE ONE TABLET BY MOUTH EVERY MORNING TAKE ONE TABLET BY MOUTH EVERY MORNING SOLD: 05/04/2021 [facility] 100 mg 04/05/2021 12:00:00 AM EDT tablet sustained-releas e 12 hr 30 TAKE ONE TABLET BY MOUTH EVERY MORNING TAKE ONE TABLET BY MOUTH EVERY MORNING SOLD: 04/05/2021 [facility] 50 mg 04/01/2021 12:00:00 AM EDT tablet 120 TAKE ONE TABLET BY MOUTH EVERY 6 HOURS NEEDED FOR PAIN MAXIMUM DAILY DOSE = FOUR TABLETS TAKE ONE TABLET BY MOUTH EVERY 6 HOURS NEEDED FOR PAIN MAXIMUM DAILY DOSE = FOUR TABLETS SOLD: 04/02/2021 [facility] 60 mg 03/17/2021 12:00:00 AM EDT capsule 30 TAKE ONE CAPSULE BY MOUTH EVERY EVENING WITH MEAL TAKE ONE CAPSULE BY MOUTH EVERY EVENING WITH MEAL SOLD : 05/10/2021 [facility] 60 mg 03/17/2021 12:00:00 AM EDT capsule 30 TAKE ONE CAPSULE BY MOUTH EVERY EVENING WITH MEAL TAKE ONE CAPSULE BY MOUTH EVERY EVENING WITH MEAL SOLD : 03/19/2021 [facility] 50 mg 03/01/2021 12:00:00 AM EDT tablet 120 TAKE ONE TABLET BY MOUTH EVERY 6 HOURS NEEDED FOR PAIN MAXIMUM DAILY DOSE = FOUR TABLETS TAKE ONE TABLET BY MOUTH EVERY 6 HOURS NEEDED FOR PAIN MAXIMUM DAILY DOSE = FOUR TABLETS SOLD: 03/01/2021 [facility] tizanidine 4 MG Oral Tablet TIZANIDINE HCL 02/26/2021 12:00:00 AM EDT tablet 15 TAKE ONE-HALF TABLET BY MOUTH AT BEDTIME TAKE ONE-HALF TABLET BY MOUTH AT BEDTIME SOLD: 02/26/2021 [facility] tizanidine 4 MG Oral Tablet TIZANIDINE HCL 02/26/2021 12:00:00 AM EDT tablet 15 TAKE ONE-HALF TABLET BY MOUTH AT BEDTIME TAKE ONE-HALF TABLET BY MOUTH AT BEDTIME SOLD: 03/27/2021 [facility] pantoprazole 40 MG Delayed Release Oral Tablet PANTOPRAZOLE SODIUM 02/24/2021 12:00:00 AM EDT tablet,delayed release (DR/EC) 180 T JAMESON ONE TABLET BY MOUTH TWICE A DAY TAKE ONE TABLET BY MOUTH TWICE A DAY SOLD: 02/26/2021 [facility] 60 mg 02/16/2021 12:00:00 AM EDT capsule 30 TAKE ONE CAPSULE BY MOUTH EVERY EVENING WITH SUPPER TAKE ONE CAPSULE BY MOUTH EVERY EVENING WITH SUPPER SO LD: 02/19/2021 [facility] atorvastatin 20 MG Oral Tablet ATORVASTATIN CALCIUM 02/12/2021 1 2:00:00 AM EDT tablet 90 TAKE ONE TABLET BY MOUTH EVERY D AY TAKE ONE TABLET BY MOUTH EVERY DAY SOLD: 05/10/2021 [facility] atorvastatin 20 MG Oral Tablet ATORVASTATIN CALCIUM 02/12/2021 1 2:00:00 AM EDT tablet 90 TAKE ONE TABLET BY MOUTH EVERY D AY TAKE ONE TABLET BY MOUTH EVERY DAY SOLD: 02/12/2021 [facility] 100 mg 02/12/2021 12:00:00 AM EDT tablet sustained-releas e 12 hr 30 TAKE ONE TABLET BY MOUTH EVERY MORNING TAKE ONE TABLET BY MOUTH EVERY MORNING SOLD: 02/12/2021 [facility] 100 mg 02/12/2021 12:00:00 AM EDT tablet sustained-releas e 12 hr 30 TAKE ONE TABLET BY MOUTH EVERY MORNING TAKE ONE TABLET BY MOUTH EVERY MORNING SOLD: 03/12/2021 [facility] atorvastatin 20 MG Oral Tablet atorvastatin (LIPITOR) 20 MG tablet atorvastatin (LIPITOR) 20 MG tablet 02/11/2021 12:00:00 AM EDT 20 mg Oral active NSTEMI (non-ST elevated myocardial infarction)Coronary artery disease involving [place] coronary artery of [place] heart with other form of angina pectoris Take 1 tablet (20 mg total) by mouth nightly [facility] NSTEMI (non-ST elevated myocardial infar ction) Coronary artery disease involving [place] coronary artery of [place] heart with other form of angina pectoris Amitriptyline Hydrochloride 25 MG Oral Tablet AMITRIPTYLINE HCL 02/08/2021 12:00:00 AM EDT tablet 30 TAKE ONE TABLET BY MOUTH AT BEDTIME TAKE ONE TABLET BY MOUTH AT BEDTIME SOLD: 02/09/2021 [facility] 25 mg 02/08/2021 12:00:00 AM EDT tablet 30 TAKE ONE TABLET BY MOUTH AT BEDTIME TAKE ONE TABLET BY MOUTH AT BEDTIME SOLD: 04/08/2021 [facility] 2 mg 02/08/2021 12:00:00 AM EDT capsule 30 TAKE ONE CAPSULE BY MOUTH EVERY DAY AT BEDTIME TAKE ONE CAPSULE BY MOUTH EVERY DAY AT BEDTIME SOLD: 021 [facility] 25 mg 02/08/2021 12:00:00 AM EDT tablet 30 TAKE ONE TABLET BY MOUTH AT BEDTIME TAKE ONE TABLET BY MOUTH AT BEDTIME SOLD: 03/10/2021 [facility] 2 mg 02/08/2021 12:00:00 AM EDT capsule 30 TAKE ONE CAPSULE BY MOUTH EVERY DAY AT BEDTIME TAKE ONE CAPSULE BY MOUTH EVERY DAY AT BEDTIME SOLD: 021 [facility] 2 mg 02/08/2021 12:00:00 AM EDT capsule 30 TAKE ONE CAPSULE BY MOUTH EVERY DAY AT BEDTIME TAKE ONE CAPSULE BY MOUTH EVERY DAY AT BEDTIME SOLD: 021 [facility] 50 mg 01/29/2021 12:00:00 AM EDT tablet 120 TAKE ONE TABLET BY MOUTH NEEDED EVERY 6 HOURS FOR PAIN, MAXIMUM DAILY DOSE = 4 TABLETS TAKE ONE TABLET BY MOUTH NEEDED EVERY 6 HOURS FOR PAIN, MAXIMUM DAILY DOSE = 4 TABLETS SOLD: 01/29/2021 [facility] olanzapine 2.5 MG Oral Tablet OLANZAPINE 01/27/2021 12:00:00 AM EDT ta blet 30 TAKE ONE TABLET BY MOUTH EVERY EVENING NEEDED TAKE ONE TABLET BY MOUTH EVERY EVENING NEEDED SOLD: 01/28/2021 [facility] 81 mg 01/23/2021 12:00:00 AM EDT tablet,delayed release (DR/EC) 30 TAKE ONE TABLET BY MOUTH DAILY TAKE ONE TABLET BY MOUTH DAILY SOLD: 06/28/2021 [facility] 81 mg 01/23/2021 12:00:00 AM EDT tablet,delayed release (DR/EC) 30 TAKE ONE TABLET BY MOUTH DAILY TAKE ONE TABLET BY MOUTH DAILY SOLD: 05/02/2021 [facility] 81 mg 01/23/2021 12:00:00 AM EDT tablet,delayed release (DR/EC) 30 TAKE ONE TABLET BY MOUTH DAILY TAKE ONE TABLET BY MOUTH DAILY SOLD: 03/27/2021 [facility] 81 mg 01/23/2021 12:00:00 AM EDT tablet,delayed release (DR/EC) 30 TAKE ONE TABLET BY MOUTH DAILY TAKE ONE TABLET BY MOUTH DAILY SOLD: 02/26/2021 [facility] 81 mg 01/23/2021 12:00:00 AM EDT tablet,delayed release (DR/EC) 30 TAKE ONE TABLET BY MOUTH DAILY TAKE ONE TABLET BY MOUTH DAILY SOLD: 05/29/2021 [facility] 81 mg 01/23/2021 12:00:00 AM EDT tablet,delayed release (DR/EC) 30 TAKE ONE TABLET BY MOUTH DAILY TAKE ONE TABLET BY MOUTH DAILY SOLD: 01/28/2021 [facility] 5 mg 01/22/2021 12:00:00 AM EDT tablet 30 TAKE ONE TABLET BY MOUTH EVERY EVENING TAKE ONE TABLET BY MOUTH EVERY EVENING SOLD: 01/28/2021 [facility] 5 mg 01/22/2021 12:00:00 AM EDT tablet 30 TAKE ONE TABLET BY MOUTH EVERY EVENING TAKE ONE TABLET BY MOUTH EVERY EVENING SOLD: 02/26/2021 [facility] Aspirin 81 MG Delayed Release Oral Table t SM Aspirin Adult Low Strength 81 MG EC tablet SM Aspirin Adult Low Strength 81 MG EC tablet 01/23/20 12:00:00 AM EDT active TAKE ONE TABLET B Y MOUTH EVERY DAY [facility] 50 mg 01/01/2021 12:00:00 AM EDT tablet 120 TAKE ONE TABLET BY MOUTH EVERY 6 HOURS NEEDED FOR PAIN MAXIMUM DAILY DOSE = 4 TAKE ONE TABLET BY MOUTH EVERY 6 HOURS NEEDED FOR PAIN MAXIMUM DAILY DOSE = 4 SOLD: 01/02/2021 [facility] tizanidine 4 MG Oral Tablet TIZANIDINE HCL 12/26/2020 12:00:00 AM EDT tablet 15 TAKE ONE-HALF TABLET BY MOUTH EVERY DAY AT BEDTIME YUE E ONE-HALF TABLET BY MOUTH EVERY DAY AT BEDTIME SOLD: 01/28/2021 [facility] tizanidine 4 MG Oral Tablet TIZANIDINE HCL 12/26/2020 12:00:00 AM EDT tablet 15 TAKE ONE-HALF TABLET BY MOUTH EVERY DAY AT BEDTIME YUE E ONE-HALF TABLET BY MOUTH EVERY DAY AT BEDTIME SOLD: 12/26/2020 [facility] 50 mg 12/26/2020 12:00:00 AM EDT tablet 28 TAKE ONE TABLET BY MOUTH EVERY 6 HOURS NEEDED FOR PAIN , MAXIMUM DAILY DOSE = 4 TABLETS TAKE ONE TABLET BY MOUTH EVERY 6 HOURS NEEDED FOR PAIN , MAXIMUM DAILY DOSE = 4 TABLETS SOLD: 12/26/2020 [facility] 0.5 mg 12/19/2020 12:00:00 AM EDT tablet 28 TAKE 1/2 TABLET BY MOUTH AT BEDTIME ONCE A DAY, MAXIMUM DAILY DOSE = 1 TABLET TAKE 1/2 TABLET BY MOUTH AT BEDTIME ONCE A DAY, MAXIMUM DAILY DOSE = 1 TABLET SOLD: 12/20/2020 [facility] 5 mg 12/17/2020 12:00:00 AM EDT tablet 30 TAKE ONE TABLET BY MOUTH EVERY DAY TAKE ONE TABLET BY MOUTH EVERY DAY SOLD: 01/15/2021 [facility] 5 mg 12/17/2020 12:00:00 AM EDT tablet 30 TAKE ONE TABLET BY MOUTH EVERY DAY TAKE ONE TABLET BY MOUTH EVERY DAY SOLD: 12/17/2020 [facility] 100 mg 12/16/2020 12:00:00 AM EDT tablet sustained-releas e 12 hr 30 TAKE ONE TABLET BY MOUTH EVERY MORNING TAKE ONE TABLET BY MOUTH EVERY MORNING SOLD: 12/17/2020 [facility] 100 mg 12/16/2020 12:00:00 AM EDT tablet sustained-releas e 12 hr 30 TAKE ONE TABLET BY MOUTH EVERY MORNING TAKE ONE TABLET BY MOUTH EVERY MORNING SOLD: 01/15/2021 [facility] 60 mg 12/16/2020 12:00:00 AM EDT capsule 30 TAKE ONE CAPSULE BY MOUTH EVERY DAY WITH SUPPER TAKE ONE CAPSULE BY MOUTH EVERY DAY WITH SUPPER SOLD: 01/15/2021 [facility] 2 mg 12/16/2020 12:00:00 AM EDT capsule 30 TAKE ONE CAPSULE BY MOUTH AT BEDTIME TAKE ONE CAPSULE BY MOUTH AT BEDTIME SOLD: 12/17/2020 [facility] Amitriptyline Hydrochloride 25 MG Oral Tablet AMITRIPTYLINE HCL 12/16/2020 12:00:00 AM EDT tablet 30 TAKE ONE TABLET BY MOUTH AT BEDTIME TAKE ONE TABLET BY MOUTH AT BEDTIME SOLD: 12/17/2020 [facility] Amlodipine 5 MG Oral Tablet amLODIPine (NORVASC) 5 MG tablet amLODIPine (NORVASC) 5 MG tablet 12/16/2020 12:00:00 AM EDT 5 mg Oral aborted Essential hypertension Take 1 tablet (5 mg total) by mouth d [facility] Essential hypertension 60 mg 12/16/2020 12:00:00 AM EDT capsule 30 TAKE ONE CAPSULE BY MOUTH EVERY DAY WITH SUPPER TAKE ONE CAPSULE BY MOUTH EVERY DAY WITH SUPPER SOLD: 12/17/2020 [facility] 2.5 mg 12/16/2020 12:00:00 AM EDT tablet 30 TAKE ONE TABLET BY MOUTH EVERY EVENING NEEDED TAKE ONE TABLET BY MOUTH EVERY EVENING NEEDED SOLD: 12/17/2020 [facility] 2 mg 12/16/2020 12:00:00 AM EDT capsule 30 TAKE ONE CAPSULE BY MOUTH AT BEDTIME TAKE ONE CAPSULE BY MOUTH AT BEDTIME SOLD: 02/12/2021 [facility] Amitriptyline Hydrochloride 25 MG Oral Tablet AMITRIPTYLINE HCL 12/16/2020 12:00:00 AM EDT tablet 30 TAKE ONE TABLET BY MOUTH AT BEDTIME TAKE ONE TABLET BY MOUTH AT BEDTIME SOLD: 02/12/2021 [facility] 2 mg 12/16/2020 12:00:00 AM EDT capsule 30 TAKE ONE CAPSULE BY MOUTH AT BEDTIME TAKE ONE CAPSULE BY MOUTH AT BEDTIME SOLD: 01/15/2021 [facility] Amitriptyline Hydrochloride 25 MG Oral Tablet AMITRIPTYLINE HCL 12/16/2020 12:00:00 AM EDT tablet 30 TAKE ONE TABLET BY MOUTH AT BEDTIME TAKE ONE TABLET BY MOUTH AT BEDTIME SOLD: 01/15/2021 [facility] ziprasidone 60 MG Oral Capsule [Geodon] Geodon 12/15/2020 12: 00:00 AM EDT 60 mg by mouth completed <td ID="Me dicationRxNorm_5">[id number]</td><td ID="MedicationMedication_5">Geodon</td><td ID="MedicationRoute_5">by mouth</td><td ID="MedicationRouteConcept_5">[id number]</td><td ID="MedicationStartDate_5">12/15/2020</td><td ID="MedicationStopDate_5">02/13/2021</td><td ID="MedicationDosageFrequency_5">every evening</td><td ID="MedicationDuration_5">30</td><td ID="MedicationFormulaStrength_5">60 mg</td><td ID="MedicationDosageForm_5">capsule</td><td ID="MedicationDosageFormCode_5"></td><td ID="MedicationDosageDescription_5">with meals</td><td ID="MedicationMedicationId_5">[id number]</td><td ID="MedicationAccount_5">[id number]</td><td ID="MedicationNpid_5">[id number]</td><td ID="MedicationAuthorFirstName_5">Bren</td><td ID="MedicationAuthorLastName_5">Guy</td><td ID="MedicationTaxonomyCode_5">[id number]</td><td ID="MedicationTaxonomyDesc_5">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</td><td ID="MedicationPhoneNumber_5">[phone]</td> [facility] ([facility]) Amitriptyline Hydrochloride 25 MG Oral T ablet amitriptyline (ELAVIL) 25 MG tablet amitriptyline (ELAVIL) 25 MG tablet 12/15/2020 12:00:00 AM EDT active [facility] olanzapine 2.5 MG Oral Tablet OLANZapine (ZYPREXA) 2.5 MG tablet OLANZapine (ZYPREXA) 2.5 MG tablet 12/15/2020 12:00:00 AM EDT active as needed [facility] Prazosin 2 MG Oral Capsule prazosin (MINIPRESS) 2 MG c apsule prazosin (MINIPRESS) 2 MG capsule 12/15/2020 12:00:00 AM EDT 1 {capsule} Oral active Take 1 capsule by mouth daily [facility] Amitriptyline Hydrochloride 25 MG Oral Tablet amitriptyline 12/15/2020 12:00:00 AM EDT 25 mg completed <td ID ="MedicationRxNorm_3">[id number]</td><td ID="MedicationMedication_3">amitriptyline</td><td ID="MedicationRoute_3"></td><td ID="MedicationRouteConcept_3"></td><td ID="MedicationStartDate_3">12/15/2020</td><td ID="MedicationStopDate_3">09/13/2021</td><td ID="MedicationDosageFrequency_3">at bedtime</td><td ID="MedicationDuration_3">30</td><td ID="MedicationFormulaStrength_3">25 mg</td><td ID="MedicationDosageForm_3">tablet</td><td ID="MedicationDosageFormCode_3"></td><td ID="MedicationDosageDescription_3"></td><td ID="MedicationMedicationId_3">[id number]</td><td ID="MedicationAccount_3">[id number]</td><td ID="MedicationNpid_3">[id number]</td><td ID="MedicationAuthorFirstName_3">Bren</td><td ID="MedicationAuthorLastName_3">Guy</td><td ID="MedicationTaxonomyCode_3">[id number]</td><td ID="MedicationTaxonomyDesc_3">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</td><td ID="MedicationPhoneNumber_3">[phone]</td> [facility] ([facility]) 50 mg 12/09/2020 12:00:00 AM EDT tablet 30 TAKE ONE TABLET BY MOUTH AT BEDTIME TAKE ONE TABLET BY MOUTH AT BEDTIME SOLD: 02/12/2021 [facility] 50 mg 12/09/2020 12:00:00 AM EDT tablet 30 TAKE ONE TABLET BY MOUTH AT BEDTIME TAKE ONE TABLET BY MOUTH AT BEDTIME SOLD: 01/15/2021 [facility] 50 mg 12/09/2020 12:00:00 AM EDT tablet 30 TAKE ONE TABLET BY MOUTH AT BEDTIME TAKE ONE TABLET BY MOUTH AT BEDTIME SOLD: 12/09/2020 [facility] tizanidine 4 MG Oral Capsule Tizanidine HCL 11/30/2020 12:00:00 AM EDT ORAL active [facility]) Amitriptyline Hydrochloride 50 MG Oral Tablet Amitriptyline HCL 11/30/2020 12:00:00 AM EDT ORAL active [facility] ([facility]) olanzapine 2.5 MG Oral Tablet Olanzapine 11/30/2020 12:00:00 AM EDT active [facility] ([facility]) Clonazepam 0.5 MG Disintegrating Oral Tablet Clonazepam 11/30/2020 12:00:00 AM EDT ORAL active [facility] ([facility] pantoprazole 40 MG Delayed Release Oral Tablet Pantoprazole Sodium 11/30/2020 12:00:00 AM EDT ORAL active [facility] ([facility]) 12 HR Bupropion Hydrochloride 100 MG Extended Release Oral Tablet Bupropion Hydrochloride ER (SR) 11/30/2020 12:00:00 AM EDT ORAL a ctive [facility] ([facility]) levocetirizine dihydrochloride 5 MG Oral Tablet Levocetirizi ne Dihydrochloride 11/30/2020 12:00:00 AM EDT ORAL active [facility] ([facility]) ziprasidone 80 MG Oral Capsule Ziprasidone HCL 11/30/2020 12:00:00 AM EDT ORAL active [facility] ([facility]) Aspirin 81 MG Delayed Release Oral Tablet Aspirin 11/30/2020 1 2:00:00 AM EDT ORAL active [facility] ([facility]) tizanidine 4 MG Oral Tablet tiZANidine (ZANAFLEX) 4 MG tablet tiZANidine (ZANAFLEX) 4 MG tablet 11/30/2020 12:00:00 AM EDT 2 mg Oral active Take 2 mg by mouth as needed [facility] Clonazepam 0.5 MG Disintegrating Oral [place] clonazePAM (KLONOPIN) 0.5 MG disintegrating tablet clonazePAM (KLONOPIN) 0.5 MG disintegrating tablet 11/30/2020 12:00:00 AM EDT 0.5 {tbl} Oral active Take 0.5 tablets by mouth nightly as needed [facility] [facility] 50 mg 11/26/2020 12:00:00 AM EDT tablet 120 TAKE ONE TABLET BY MOUTH EVERY 6 HOURS NEEDED FOR PAIN MAXIMUM DAILY DOSE = 4 TABLETS TAKE ONE TABLET BY MOUTH EVERY 6 HOURS NEEDED FOR PAIN MAXIMUM DAILY DOSE = 4 TABLETS SOLD: 11/26/2020 [facility] 0.5 mg 11/18/2020 12:00:00 AM EST tablet 14 TAKE 1/2 TABLET AT BEDTIME ONCE DAILY MAXIMUM DAILY DOSE = 1/2 TABLET TAKE 1/2 TABLET AT BEDTIME ONCE DAILY MAXIMUM DAILY DOSE = 1/2 TABLET SOLD: 11/19/2020 [facility] 100 mg 11/10/2020 12:00:00 AM EST tablet sustained-releas e 12 hr 30 TAKE ONE TABLET BY MOUTH EVERY MORNING TAKE ONE TABLET BY MOUTH EVERY MORNING SOLD: 12/09/2020 [facility] 100 mg 11/10/2020 12:00:00 AM EST tablet sustained-releas e 12 hr 30 TAKE ONE TABLET BY MOUTH EVERY MORNING TAKE ONE TABLET BY MOUTH EVERY MORNING SOLD: 11/10/2020 [facility] 12 HR Bupropion Hydrochloride 100 MG Extended Release Oral Tablet [Wellbutrin] Wellbutrin SR 11/09/2020 12:00:00 AM EST 100 mg by mouth co mpleted <td ID="MedicationRxNorm_2">280944</td><td ID="MedicationMedication_2">Wellbutrin SR</td><td ID="MedicationRoute_2">by mouth</td><td ID="MedicationRouteConcept_2">B35705</td><td ID="MedicationStartDate_2">11/09/2020</td><td ID="MedicationStopDate_2">01/08/2021</td><td ID="MedicationDosageFrequency_2">every morning</td><td ID="MedicationDuration_2">30</td><td ID="MedicationFormulaStrength_2">100 mg</td><td ID="MedicationDosageForm_2">tablet sustained-release 12 hr</td><td ID="MedicationDosageFormCode_2"></td><td ID="MedicationDosageDescription_2"></td><td ID="MedicationMedicationId_2">[id number]</td><td ID="MedicationAccount_2">[id number]</td><td ID="MedicationNpid_2">[id number]</td><td ID="MedicationAuthorFirstName_2">Bren</td><td ID="MedicationAuthorLastName_2">Guy</td><td ID="MedicationTaxonomyCode_2">[id number]</td><td ID="MedicationTaxonomyDesc_2"> 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</td><td ID="MedicationPhoneNumber_2">[phone]</td> [facility] ([facility]) 12 HR Bupropion Hydrochloride 100 MG Extended Release Oral Tablet [Wellbutrin] Wellbutrin SR 11/09/2020 12:00:00 AM EST 100 mg by mouth co mpleted <td ID="MedicationRxNorm_1">417472</td><td ID="MedicationMedication_1">Wellbutrin SR</td><td ID="MedicationRoute_1">by mouth</td><td ID="MedicationRouteConcept_1">C83691</td><td ID="MedicationStartDate_1">11/09/2020</td><td ID="MedicationStopDate_1">05/15/2021</td><td ID="MedicationDosageFrequency_1">every morning</td><td ID="MedicationDuration_1">30</td><td ID="MedicationFormulaStrength_1">100 mg</td><td ID="MedicationDosageForm_1">tablet sustained-release 12 hr</td><td ID="MedicationDosageFormCode_1"></td><td ID="MedicationDosageDescription_1"></td><td ID="MedicationMedicationId_1">[id number]</td><td ID="MedicationAccount_1">[id number]</td><td ID="MedicationNpid_1">[id number]</td><td ID="MedicationAuthorFirstName_1">Bren</td><td ID="MedicationAuthorLastName_1">Guy</td><td ID="MedicationTaxonomyCode_1">[id number]</td><td ID="MedicationTaxonomyDesc_1"> 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</td><td ID="MedicationPhoneNumber_1">[phone]</td> [facility] ([facility]) 5 mg 10/28/2020 12:00:00 AM EST tablet 30 TAKE ONE TABLET BY MOUTH EVERY EVENING TAKE ONE TABLET BY MOUTH EVERY EVENING SOLD: 11/26/2020 [facility] 5 mg 10/28/2020 12:00:00 AM EST tablet 30 TAKE ONE TABLET BY MOUTH EVERY EVENING TAKE ONE TABLET BY MOUTH EVERY EVENING SOLD: 10/31/2020 [facility] 50 mg 10/28/2020 12:00:00 AM EST tablet 120 TAKE ONE TABLET BY MOUTH EVERY 6 HOURS NEEDED FOR PAIN MAXIMUM DAILY DOSE = 4 TABLETS TAKE ONE TABLET BY MOUTH EVERY 6 HOURS NEEDED FOR PAIN MAXIMUM DAILY DOSE = 4 TABLETS SOLD: 10/28/2020 [facility] 5 mg 10/28/2020 12:00:00 AM EST tablet 30 TAKE ONE TABLET BY MOUTH EVERY EVENING TAKE ONE TABLET BY MOUTH EVERY EVENING SOLD: 12/26/2020 [facility] 2 mg 10/13/2020 12:00:00 AM EST capsule 30 TAKE ONE CAPSULE BY MOUTH AT BEDTIME TAKE ONE CAPSULE BY MOUTH AT BEDTIME SOLD: 11/10/2020 [facility] 2 mg 10/13/2020 12:00:00 AM EST capsule 30 TAKE ONE CAPSULE BY MOUTH AT BEDTIME TAKE ONE CAPSULE BY MOUTH AT BEDTIME SOLD: 12/09/2020 [facility] 2 mg 10/13/2020 12:00:00 AM EST capsule 30 TAKE ONE CAPSULE BY MOUTH AT BEDTIME TAKE ONE CAPSULE BY MOUTH AT BEDTIME SOLD: 10/13/2020 [facility] 60 mg 10/13/2020 12:00:00 AM EST capsule 30 TAKE ONE CAPSULE BY MOUTH EVERY EVENING WITH SUPPER TAKE ONE CAPSULE BY MOUTH EVERY EVENING WITH SUPPER SO LD: 10/13/2020 [facility] 2.5 mg 10/13/2020 12:00:00 AM EST tablet 30 TAKE ONE TABLET BY MOUTH EVERY EVENING NEEDED TAKE ONE TABLET BY MOUTH EVERY EVENING NEEDED SOLD: 10/13/2020 [facility] 60 mg 10/13/2020 12:00:00 AM EST capsule 30 TAKE ONE CAPSULE BY MOUTH EVERY EVENING WITH SUPPER TAKE ONE CAPSULE BY MOUTH EVERY EVENING WITH SUPPER SO LD: 11/10/2020 [facility] Prazosin 2 MG Oral Capsule prazosin 10/12/2020 12:00:00 AM EST 2 mg by mouth completed <td ID="Medicat ionRxNorm_3">922221</td><td ID="MedicationMedication_3">prazosin</td><td ID="MedicationRoute_3">by mouth</td><td ID="MedicationRouteConcept_3">A45511</td><td ID="MedicationStartDate_3">10/12/2020</td><td ID="MedicationStopDate_3">01/10/2021</td><td ID="MedicationDosageFrequency_3">at bedtime</td><td ID="MedicationDuration_3">30</td><td ID="MedicationFormulaStrength_3">2 mg</td><td ID="MedicationDosageForm_3">capsule</td><td ID="MedicationDosageFormCode_3"></td><td ID="MedicationDosageDescription_3"></td><td ID="MedicationMedicationId_3">[id number]</td><td ID="MedicationAccount_3">[id number]</td><td ID="MedicationNpid_3">[id number]</td><td ID="MedicationAuthorFirstName_3">Bren</td><td ID="MedicationAuthorLastName_3">Guy</td><td ID="MedicationTaxonomyCode_3">[id number]</td><td ID="MedicationTaxonomyDesc_3">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</td><td ID="MedicationPhoneNumber_3">[phone]</td> [facility] ([facility]) 0.5 mg 10/12/2020 12:00:00 AM EST tablet 14 TAKE ONE-HALF TABLET BY MOUTH EVERY DAY AT BEDTIME, MAXIMUM DAILY DOSE = 1/2 TAKE ONE-HALF TABLET BY MOUTH EVERY DAY AT BEDTIME, MAXIMUM DAILY DOSE = 1/2 SOLD: 10/12/2020 [facility] Prazosin 2 MG Oral Capsule prazosin 10/12/2020 12:00:00 AM EST 2 mg by mouth completed <td ID="Medicat ionRxNorm_4">239186</td><td ID="MedicationMedication_4">prazosin</td><td ID="MedicationRoute_4">by mouth</td><td ID="MedicationRouteConcept_4">H48372</td><td ID="MedicationStartDate_4">10/12/2020</td><td ID="MedicationStopDate_4">09/13/2021</td><td ID="MedicationDosageFrequency_4">at bedtime</td><td ID="MedicationDuration_4">30</td><td ID="MedicationFormulaStrength_4">2 mg</td><td ID="MedicationDosageForm_4">capsule</td><td ID="MedicationDosageFormCode_4"></td><td ID="MedicationDosageDescription_4"></td><td ID="MedicationMedicationId_4">[id number]</td><td ID="MedicationAccount_4">[id number]</td><td ID="MedicationNpid_4">[id number]</td><td ID="MedicationAuthorFirstName_4">Bren</td><td ID="MedicationAuthorLastName_4">Guy</td><td ID="MedicationTaxonomyCode_4">[id number]</td><td ID="MedicationTaxonomyDesc_4">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</td><td ID="MedicationPhoneNumber_4">[phone]</td> [facility] ([facility]) olanzapine 2.5 MG Oral Tablet olanzapine 10/12/2020 12:00:00 AM EST 2.5 mg by mouth completed <td ID="Medica tionRxNorm_1">036615</td><td ID="MedicationMedication_1">olanzapine</td><td ID="MedicationRoute_1">by mouth</td><td ID="MedicationRouteConcept_1">L58776</td><td ID="MedicationStartDate_1">10/12/2020</td><td ID="MedicationStopDate_1"></td><td ID="MedicationDosageFrequency_1">every night</td><td ID="MedicationDuration_1"></td><td ID="MedicationFormulaStrength_1">2.5 mg</td><td ID="MedicationDosageForm_1">tablet</td><td ID="MedicationDosageFormCode_1"></td><td ID="MedicationDosageDescription_1">as needed</td><td ID="MedicationMedicationId_1">[id number]</td><td ID="MedicationAccount_1">[id number]</td><td ID="MedicationNpid_1">[id number]</td><td ID="MedicationAuthorFirstName_1">Bren</td><td ID="MedicationAuthorLastName_1">Guy</td><td ID="MedicationTaxonomyCode_1">[id number]</td><td ID="MedicationTaxonomyDesc_1">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</td><td ID="MedicationPhoneNumber_1">[phone]</td> [facility] ([facility]) olanzapine 2.5 MG Oral Tablet olanzapine 10/12/2020 12:00:00 AM EST 2.5 mg by mouth completed <td ID="Medica tionRxNorm_5">366280</td><td ID="MedicationMedication_5">olanzapine</td><td ID="MedicationRoute_5">by mouth</td><td ID="MedicationRouteConcept_5">S33118</td><td ID="MedicationStartDate_5">10/12/2020</td><td ID="MedicationStopDate_5"></td><td ID="MedicationDosageFrequency_5">every night</td><td ID="MedicationDuration_5"></td><td ID="MedicationFormulaStrength_5">2.5 mg</td><td ID="MedicationDosageForm_5">tablet</td><td ID="MedicationDosageFormCode_5"></td><td ID="MedicationDosageDescription_5">as needed</td><td ID="MedicationMedicationId_5">[id number]</td><td ID="MedicationAccount_5">[id number]</td><td ID="MedicationNpid_5">[id number]</td><td ID="MedicationAuthorFirstName_5">Bren</td><td ID="MedicationAuthorLastName_5">Guy</td><td ID="MedicationTaxonomyCode_5">[id number]</td><td ID="MedicationTaxonomyDesc_5">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</td><td ID="MedicationPhoneNumber_5">[phone]</td> [facility] ([facility] [address]) ziprasidone 60 MG Oral Capsule [Geodon] Geodon 10/12/2020 12: 00:00 AM EST 60 mg by mouth completed <td ID="Me dicationRxNorm_4">642163</td><td ID="MedicationMedication_4">Geodon</td><td ID="MedicationRoute_4">by mouth</td><td ID="MedicationRouteConcept_4">I07913</td><td ID="MedicationStartDate_4">10/12/2020</td><td ID="MedicationStopDate_4">12/11/2020</td><td ID="MedicationDosageFrequency_4">every evening</td><td ID="MedicationDuration_4">30</td><td ID="MedicationFormulaStrength_4">60 mg</td><td ID="MedicationDosageForm_4">capsule</td><td ID="MedicationDosageFormCode_4"></td><td ID="MedicationDosageDescription_4">with meals</td><td ID="MedicationMedicationId_4">[id number]</td><td ID="MedicationAccount_4">[id number]</td><td ID="MedicationNpid_4">[id number]</td><td ID="MedicationAuthorFirstName_4">Bren</td><td ID="MedicationAuthorLastName_4">Guy</td><td ID="MedicationTaxonomyCode_4">[id number]</td><td ID="MedicationTaxonomyDesc_4">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</td><td ID="MedicationPhoneNumber_4">[phone]</td> [facility] ([facility]) Prazosin 2 MG Oral Capsule prazosin 10/12/2020 12:00:00 AM EST 2 mg by mouth completed <td ID="Medicat ionRxNorm_6">280088</td><td ID="MedicationMedication_6">prazosin</td><td ID="MedicationRoute_6">by mouth</td><td ID="MedicationRouteConcept_6">X69383</td><td ID="MedicationStartDate_6">10/12/2020</td><td ID="MedicationStopDate_6">01/10/2021</td><td ID="MedicationDosageFrequency_6">at bedtime</td><td ID="MedicationDuration_6">30</td><td ID="MedicationFormulaStrength_6">2 mg</td><td ID="MedicationDosageForm_6">capsule</td><td ID="MedicationDosageFormCode_6"></td><td ID="MedicationDosageDescription_6"></td><td ID="MedicationMedicationId_6">[id number]</td><td ID="MedicationAccount_6">[id number]</td><td ID="MedicationNpid_6">[id number]</td><td ID="MedicationAuthorFirstName_6">Bren</td><td ID="MedicationAuthorLastName_6">Guy</td><td ID="MedicationTaxonomyCode_6">[id number]</td><td ID="MedicationTaxonomyDesc_6">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</td><td ID="MedicationPhoneNumber_6">[phone]</td> [facility] ([facility]) 50 mg 09/29/2020 12:00:00 AM EST tablet 120 TAKE ONE TABLET BY MOUTH EVERY 6 HOURS NEEDED FOR PAIN MAXIMUM DAILY DOSE = 4 TABLETS TAKE ONE TABLET BY MOUTH EVERY 6 HOURS NEEDED FOR PAIN MAXIMUM DAILY DOSE = 4 TABLETS SOLD: 09/29/2020 [facility] tizanidine 4 MG Oral Tablet TIZANIDINE HCL 09/25/2020 12:00:00 AM EST tablet 90 TAKE ONE TABLET BY MOUTH THREE TIMES A DAY NEEDED T JAMESON ONE TABLET BY MOUTH THREE TIMES A DAY NEEDED SOLD: 10/24/2020 [facility] 50 mg 09/25/2020 12:00:00 AM EST tablet 30 TAKE ONE TABLET BY MOUTH EVERY DAY AT BEDTIME NEEDED TAKE ONE TABLET BY MOUTH EVERY DAY AT BE DTIME NEEDED SOLD: 09/25/2020 [facility] tizanidine 4 MG Oral Tablet TIZANIDINE HCL 09/25/2020 12:00:00 AM EST tablet 90 TAKE ONE TABLET BY MOUTH THREE TIMES A DAY NEEDED T JAMESON ONE TABLET BY MOUTH THREE TIMES A DAY NEEDED SOLD: 09/25/2020 [facility] 50 mg 09/14/2020 12:00:00 AM EST tablet 30 TAKE ONE TABLET BY MOUTH AT BEDTIME TAKE ONE TABLET BY MOUTH AT BEDTIME SOLD: 11/10/2020 [facility] 50 mg 09/14/2020 12:00:00 AM EST tablet 30 TAKE ONE TABLET BY MOUTH AT BEDTIME TAKE ONE TABLET BY MOUTH AT BEDTIME SOLD: 09/15/2020 [facility] 50 mg 09/14/2020 12:00:00 AM EST tablet 30 TAKE ONE TABLET BY MOUTH AT BEDTIME TAKE ONE TABLET BY MOUTH AT BEDTIME SOLD: 10/12/2020 [facility] olanzapine 5 MG Oral Tablet OLANZAPINE 09/10/2020 12:00:00 AM EST tabl et 30 TAKE ONE TABLET BY MOUTH EVERY EVENING NEEDED TAKE ONE TABLET BY MOUTH EVERY EVENING NEEDED SOLD: 09/15/2020 [facility] pantoprazole 40 MG Delayed Release Oral Tablet PANTOPRAZOLE SODIUM 09/02/2020 12:00:00 AM EST tablet,delayed release (DR/EC) 60 T JAMESON ONE TABLET BY MOUTH TWICE A DAY TAKE ONE TABLET BY MOUTH TWICE A DAY SOLD: 10/31/2020 [facility] pantoprazole 40 MG Delayed Release Oral Tablet PANTOPRAZOLE SODIUM 09/02/2020 12:00:00 AM EST tablet,delayed release (DR/EC) 60 T JAMESON ONE TABLET BY MOUTH TWICE A DAY TAKE ONE TABLET BY MOUTH TWICE A DAY SOLD: 11/27/2020 [facility] pantoprazole 40 MG Delayed Release Oral Tablet PANTOPRAZOLE SODIUM 09/02/2020 12:00:00 AM EST tablet,delayed release (DR/EC) 60 T JAMESON ONE TABLET BY MOUTH TWICE A DAY TAKE ONE TABLET BY MOUTH TWICE A DAY SOLD: 12/26/2020 [facility] pantoprazole 40 MG Delayed Release Oral Tablet PANTOPRAZOLE SODIUM 09/02/2020 12:00:00 AM EST tablet,delayed release (DR/EC) 60 T JAMESON ONE TABLET BY MOUTH TWICE A DAY TAKE ONE TABLET BY MOUTH TWICE A DAY SOLD: 01/28/2021 [facility] pantoprazole 40 MG Delayed Release Oral Tablet PANTOPRAZOLE SODIUM 09/02/2020 12:00:00 AM EST tablet,delayed release (DR/EC) 60 T JAMESON ONE TABLET BY MOUTH TWICE A DAY TAKE ONE TABLET BY MOUTH TWICE A DAY SOLD: 09/02/2020 [facility] pantoprazole 40 MG Delayed Release Oral Tablet PANTOPRAZOLE SODIUM 09/02/2020 12:00:00 AM EST tablet,delayed release (DR/EC) 60 T JAMESON ONE TABLET BY MOUTH TWICE A DAY TAKE ONE TABLET BY MOUTH TWICE A DAY SOLD: 10/01/2020 [facility] 50 mg 08/25/2020 12:00:00 AM EST tablet 120 TAKE ONE TABLET BY MOUTH EVERY 6 HOURS NEEDED FOR PAIN, MAXIMUM DAILY DOSE = 4 TAKE ONE TABLET BY MOUTH EVERY 6 HOURS NEEDED FOR PAIN, MAXIMUM DAILY DOSE = 4 SOLD: 08/26/2020 [facility] olanzapine 5 MG Oral Tablet OLANZAPINE 08/12/2020 12:00:00 AM EST tabl et 30 TAKE ONE TABLET BY MOUTH EVERY NIGHT NEEDED TAKE ONE TABLET BY MOUTH EVERY NIGHT NEEDED SOLD: 08/15/2020 [facility] 60 mg 08/12/2020 12:00:00 AM EST capsule 60 TAKE TWO CAPSULES BY MOUTH EVERY EVENING TAKE TWO CAPSULES BY MOUTH EVERY EVENING SOLD: 09/15/2020 [facility] 60 mg 08/12/2020 12:00:00 AM EST capsule 60 TAKE TWO CAPSULES BY MOUTH EVERY EVENING TAKE TWO CAPSULES BY MOUTH EVERY EVENING SOLD: 08/15/2020 [facility] 0.5 mg 08/11/2020 12:00:00 AM EST tablet 28 TAKE ONE TABLET BY MOUTH AT BEDTIME , MAXIMUM DAILY DOSE = 1 TABLET TAKE ONE TABLET BY MOUTH AT BEDTIME , MAXIMUM DAILY DOSE = 1 TABLET SOLD: 08/15/2020 [facility] Aspirin 81 MG Delayed Release Oral Table t SM ASPIRIN ADULT LOW STRENGTH 81 MG EC tablet SM ASPIRIN ADULT LOW STRENGTH 81 MG EC tablet 08/05/20 12:00:00 AM EST active TAKE ONE TABLET B Y MOUTH EVERY DAY [facility] 81 mg 08/05/2020 12:00:00 AM EST tablet,delayed release (DR/EC) 30 TAKE ONE TABLET BY MOUTH EVERY DAY TAKE ONE TABLET BY MOUTH EVERY DAY SOLD: 10/01/2020 [facility] 81 mg 08/05/2020 12:00:00 AM EST tablet,delayed release (DR/EC) 30 TAKE ONE TABLET BY MOUTH EVERY DAY TAKE ONE TABLET BY MOUTH EVERY DAY SOLD: 09/02/2020 [facility] 81 mg 08/05/2020 12:00:00 AM EST tablet,delayed release (DR/EC) 30 TAKE ONE TABLET BY MOUTH EVERY DAY TAKE ONE TABLET BY MOUTH EVERY DAY SOLD: 12/26/2020 [facility] 81 mg 08/05/2020 12:00:00 AM EST tablet,delayed release (DR/EC) 30 TAKE ONE TABLET BY MOUTH EVERY DAY TAKE ONE TABLET BY MOUTH EVERY DAY SOLD: 08/05/2020 [facility] 81 mg 08/05/2020 12:00:00 AM EST tablet,delayed release (DR/EC) 30 TAKE ONE TABLET BY MOUTH EVERY DAY TAKE ONE TABLET BY MOUTH EVERY DAY SOLD: 10/31/2020 [facility] 81 mg 08/05/2020 12:00:00 AM EST tablet,delayed release (DR/EC) 30 TAKE ONE TABLET BY MOUTH EVERY DAY TAKE ONE TABLET BY MOUTH EVERY DAY SOLD: 11/27/2020 [facility] 5 mg 07/31/2020 12:00:00 AM EST capsule 30 TAKE ONE CAPSULE BY MOUTH AT BEDTIME TAKE ONE CAPSULE BY MOUTH AT BEDTIME SOLD: 09/29/2020 [facility] 5 mg 07/31/2020 12:00:00 AM EST capsule 30 TAKE ONE CAPSULE BY MOUTH AT BEDTIME TAKE ONE CAPSULE BY MOUTH AT BEDTIME SOLD: 07/31/2020 [facility] 5 mg 07/31/2020 12:00:00 AM EST capsule 30 TAKE ONE CAPSULE BY MOUTH AT BEDTIME TAKE ONE CAPSULE BY MOUTH AT BEDTIME SOLD: 08/30/2020 [facility] 50 mg 07/24/2020 12:00:00 AM EST tablet 120 TAKE ONE TABLET BY MOUTH EVERY 6 HOURS NEEDED FOR PAIN, MAXIMUM DAILY DOSE = FOUR TABLETS TAKE ONE TABLET BY MOUTH EVERY 6 HOURS NEEDED FOR PAIN, MAXIMUM DAILY DOSE = FOUR TABLETS SOLD: 07/27/2020 [facility] Trazodone Hydrochloride 100 MG Oral Tablet TRAZODONE HCL 07/23/2020 12:00:00 AM EST tablet 30 TAKE ONE TABLET BY MOUTH AT BEDTIME TAKE ONE TABLET BY MOUTH AT BEDTIME SOLD: 07/23/2020 [facility] 100 mg 07/23/2020 12:00:00 AM EST tablet sustained-releas e 12 hr 30 TAKE ONE TABLET BY MOUTH EVERY MORNING TAKE ONE TABLET BY MOUTH EVERY MORNING SOLD: 07/23/2020 [facility] 100 mg 07/23/2020 12:00:00 AM EST tablet sustained-releas e 12 hr 30 TAKE ONE TABLET BY MOUTH EVERY MORNING TAKE ONE TABLET BY MOUTH EVERY MORNING SOLD: 08/24/2020 [facility] Trazodone Hydrochloride 100 MG Oral Tablet TRAZODONE HCL 07/23/2020 12:00:00 AM EST tablet 30 TAKE ONE TABLET BY MOUTH AT BEDTIME TAKE ONE TABLET BY MOUTH AT BEDTIME SOLD: 08/24/2020 [facility] 50 mg 07/22/2020 12:00:00 AM EST tablet 60 TAKE ONE TABLET BY MOUTH TWICE A DAY NEEDED TAKE ONE TABLET BY MOUTH TWICE A DAY NEEDED SOLD: 08/24/2020 [facility] 50 mg 07/22/2020 12:00:00 AM EST tablet 60 TAKE ONE TABLET BY MOUTH TWICE A DAY NEEDED TAKE ONE TABLET BY MOUTH TWICE A DAY NEEDED SOLD: 07/22/2020 [facility] Hydroxyzine Hydrochloride 50 MG Oral Tablet hydrOXYzin e (ATARAX) 50 MG tablet hydrOXYzine (ATARAX) 50 MG tablet 07/22/2020 12:00:00 AM EST aborted TAKE ONE TABLET BY MOUTH TWICE A DAY NEEDED [facility] Hydroxyzine Hydrochloride 50 MG Oral Tablet hydroxyzine HCl 07/21/2020 12:00:00 AM EST 50 mg completed <td ID ="MedicationRxNorm_5">355777</td><td ID="MedicationMedication_5">hydroxyzine HCl</td><td ID="MedicationRoute_5"></td><td ID="MedicationRouteConcept_5"></td><td ID="MedicationStartDate_5">07/21/2020</td><td ID="MedicationStopDate_5">09/19/2020</td><td ID="MedicationDosageFrequency_5">twice a day</td><td ID="MedicationDuration_5">30</td><td ID="MedicationFormulaStrength_5">50 mg</td><td ID="MedicationDosageForm_5">tablet</td><td ID="MedicationDosageFormCode_5"></td><td ID="MedicationDosageDescription_5">as needed</td><td ID="MedicationMedicationId_5">[id number]</td><td ID="MedicationAccount_5">[id number]</td><td ID="MedicationNpid_5">[id number]</td><td ID="MedicationAuthorFirstName_5">Bren</td><td ID="MedicationAuthorLastName_5">Guy</td><td ID="MedicationTaxonomyCode_5">[id number]</td><td ID="MedicationTaxonomyDesc_5">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</td><td ID="MedicationPhoneNumber_5">[phone]</td> [facility] ([facility]) olanzapine 5 MG Oral Tablet OLANZAPINE 07/17/2020 12:00:00 AM EST tabl et 30 TAKE ONE TABLET BY MOUTH EVERY NIGHT NEEDED TAKE ONE TABLET BY MOUTH EVERY NIGHT NEEDED SOLD: 07/17/2020 [facility] olanzapine 5 MG Oral Tablet olanzapine 07/17/2020 12:00:00 AM EST 5 mg by mouth completed <td ID="Medica tionRxNorm_3">943332</td><td ID="MedicationMedication_3">olanzapine</td><td ID="MedicationRoute_3">by mouth</td><td ID="MedicationRouteConcept_3">M25242</td><td ID="MedicationStartDate_3">07/17/2020</td><td ID="MedicationStopDate_3">10/12/2020</td><td ID="MedicationDosageFrequency_3">every night</td><td ID="MedicationDuration_3"></td><td ID="MedicationFormulaStrength_3">5 mg</td><td ID="MedicationDosageForm_3">tablet</td><td ID="MedicationDosageFormCode_3"></td><td ID="MedicationDosageDescription_3">as needed</td><td ID="MedicationMedicationId_3">[id number]</td><td ID="MedicationAccount_3">[id number]</td><td ID="MedicationNpid_3">[id number]</td><td ID="MedicationAuthorFirstName_3">Bren</td><td ID="MedicationAuthorLastName_3">Guy</td><td ID="MedicationTaxonomyCode_3">[id number]</td><td ID="MedicationTaxonomyDesc_3">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</td><td ID="MedicationPhoneNumber_3">[phone]</td> [facility] ([facility]) 4 mg 07/09/2020 12:00:00 AM EDT tablet 90 TAKE ONE TABLET BY MOUTH THREE TIMES A DAY NEEDED TAKE ONE TABLET BY MOUTH THREE TIMES A DAY NEEDED S OLD: 07/13/2020 [facility] tizanidine 4 MG Oral Tablet TIZANIDINE HCL 07/09/2020 12:00:00 AM EDT tablet 90 TAKE ONE TABLET BY MOUTH THREE TIMES A DAY NEEDED T JAMESON ONE TABLET BY MOUTH THREE TIMES A DAY NEEDED SOLD: 08/10/2020 [facility] Prazosin 5 MG Oral Capsule prazosin (MINIPRESS) 5 MG c apsule prazosin (MINIPRESS) 5 MG capsule 07/08/2020 12:00:00 AM EDT aborted daily [facility] 5 mg 07/07/2020 12:00:00 AM EDT tablet 30 TAKE ONE TABLET BY MOUTH EVERY EVENING TAKE ONE TABLET BY MOUTH EVERY EVENING SOLD: 07/07/2020 [facility] 5 mg 07/07/2020 12:00:00 AM EDT tablet 30 TAKE ONE TABLET BY MOUTH EVERY EVENING TAKE ONE TABLET BY MOUTH EVERY EVENING SOLD: 08/05/2020 [facility] 5 mg 07/07/2020 12:00:00 AM EDT tablet 30 TAKE ONE TABLET BY MOUTH EVERY EVENING TAKE ONE TABLET BY MOUTH EVERY EVENING SOLD: 09/02/2020 [facility] 5 mg 07/07/2020 12:00:00 AM EDT tablet 30 TAKE ONE TABLET BY MOUTH EVERY EVENING TAKE ONE TABLET BY MOUTH EVERY EVENING SOLD: 10/01/2020 [facility] 12 HR Bupropion Hydrochloride 100 MG Ext ended Release Oral Tablet buPROPion (WELLBUTRIN SR) 100 MG 12 hr tablet buPROPion (WELLBUTRIN SR) 100 MG 12 hr tablet 07/02/2020 12:00:00 AM EDT 100 mg Oral active Take 100 mg by mouth daily [facility] Trazodone Hydrochloride 100 MG Oral Tablet traZODone ( DESYREL) 100 MG tablet traZODone (DESYREL) 100 MG tablet 07/01/2020 12:00:00 AM EDT 100 mg Oral aborted Take 100 mg by mouth nightly [facility] 50 mg 06/27/2020 12:00:00 AM EDT tablet 120 TAKE ONE TABLET BY MOUTH EVERY 6 HOURS NEEDED FOR PAIN, MAXIMUM DAILY DOSE = FOUR TABLETS TAKE ONE TABLET BY MOUTH EVERY 6 HOURS NEEDED FOR PAIN, MAXIMUM DAILY DOSE = FOUR TABLETS SOLD: 06/27/2020 [facility] 50 mg 06/13/2020 12:00:00 AM EDT tablet 30 TAKE ONE TABLET BY MOUTH EVERY DAY AT BEDTIME TAKE ONE TABLET BY MOUTH EVERY DAY AT BEDTIME SOLD: 06/19/2020 [facility] 50 mg 06/13/2020 12:00:00 AM EDT tablet 30 TAKE ONE TABLET BY MOUTH EVERY DAY AT BEDTIME TAKE ONE TABLET BY MOUTH EVERY DAY AT BEDTIME SOLD: 07/17/2020 [facility] 50 mg 06/13/2020 12:00:00 AM EDT tablet 30 TAKE ONE TABLET BY MOUTH EVERY DAY AT BEDTIME TAKE ONE TABLET BY MOUTH EVERY DAY AT BEDTIME SOLD: 08/15/2020 [facility] 5 mg 06/11/2020 12:00:00 AM EDT capsule 30 TAKE ONE CAPSULE BY MOUTH EVERY DAY AT BEDTIME TAKE ONE CAPSULE BY MOUTH EVERY DAY AT BEDTIME SOLD: 021 [facility] 5 mg 06/11/2020 12:00:00 AM EDT capsule 30 TAKE ONE CAPSULE BY MOUTH EVERY DAY AT BEDTIME TAKE ONE CAPSULE BY MOUTH EVERY DAY AT BEDTIME SOLD: [facility] 5 mg 06/11/2020 12:00:00 AM EDT capsule 30 TAKE ONE CAPSULE BY MOUTH EVERY DAY AT BEDTIME TAKE ONE CAPSULE BY MOUTH EVERY DAY AT BEDTIME SOLD: [facility] olanzapine 5 MG Oral Tablet OLANZapine (ZYPREXA) 5 MG tablet OLANZapine (ZYPREXA) 5 MG tablet 06/11/2020 12:00:00 AM EDT 5 mg Oral aborted Take 5 mg by mouth as needed [facility] olanzapine 5 MG Oral Tablet OLANZAPINE 06/11/2020 12:00:00 AM EDT tabl et 30 TAKE ONE TABLET BY MOUTH EVERY DAY NEEDED TAKE ONE TABLET BY MOUTH EVERY DAY NEEDED SOLD: 06/12/2020 [facility] 60 mg 06/11/2020 12:00:00 AM EDT capsule 60 TAKE TWO CAPSULES BY MOUTH EVERY EVENING TAKE TWO CAPSULES BY MOUTH EVERY EVENING SOLD: 07/13/2020 [facility] 60 mg 06/11/2020 12:00:00 AM EDT capsule 60 TAKE TWO CAPSULES BY MOUTH EVERY EVENING TAKE TWO CAPSULES BY MOUTH EVERY EVENING SOLD: 06/12/2020 [facility] 100 mg 06/03/2020 12:00:00 AM EDT tablet 30 TAKE ONE TABLET BY MOUTH EVERY DAY AT BEDTIME TAKE ONE TABLET BY MOUTH EVERY DAY AT BEDTIME SOLD: 07/06/2020 [facility] 100 mg 06/03/2020 12:00:00 AM EDT tablet sustained-releas e 12 hr 30 TAKE ONE TABLET BY MOUTH EVERY MORNING TAKE ONE TABLET BY MOUTH EVERY MORNING SOLD: 07/06/2020 [facility] 100 mg 06/03/2020 12:00:00 AM EDT tablet sustained-releas e 12 hr 30 TAKE ONE TABLET BY MOUTH EVERY MORNING TAKE ONE TABLET BY MOUTH EVERY MORNING SOLD: 06/04/2020 [facility] Trazodone Hydrochloride 100 MG Oral Tablet TRAZODONE HCL 06/03/2020 12:00:00 AM EDT tablet 30 TAKE ONE TABLET BY MOUTH ANN MARIE RY DAY AT BEDTIME TAKE ONE TABLET BY MOUTH EVERY DAY AT BEDTIME SOLD: 06/04/2020 [facility] 50 mg 2020 12:00:00 AM EDT tablet 120 TAKE ONE TABLET BY MOUTH EVERY 6 HOURS NEEDED FOR PAIN, MAXIMUM DAILY DOSE = FOUR TABLETS TAKE ONE TABLET BY MOUTH EVERY 6 HOURS NEEDED FOR PAIN, MAXIMUM DAILY DOSE = FOUR TABLETS SOLD: 2020 [facility] pantoprazole 40 MG Delayed Release Oral Tablet PANTOPRAZOLE SODIUM 05/25/2020 12:00:00 AM EDT tablet,delayed release (DR/EC) 30 T JAMESON ONE TABLET BY MOUTH TWICE A DAY TAKE ONE TABLET BY MOUTH TWICE A DAY SOLD: 07/13/2020 [facility] pantoprazole 40 MG Delayed Release Oral Tablet PANTOPRAZOLE SODIUM 05/25/2020 12:00:00 AM EDT tablet,delayed release (DR/EC) 30 T JAMESON ONE TABLET BY MOUTH TWICE A DAY TAKE ONE TABLET BY MOUTH TWICE A DAY SOLD: 06/25/2020 [facility] pantoprazole 40 MG Delayed Release Oral Tablet PANTOPRAZOLE SODIUM 05/25/2020 12:00:00 AM EDT tablet,delayed release (DR/EC) 30 T JAMESON ONE TABLET BY MOUTH TWICE A DAY TAKE ONE TABLET BY MOUTH TWICE A DAY SOLD: 08/10/2020 [facility] pantoprazole 40 MG Delayed Release Oral Tablet PANTOPRAZOLE SODIUM 05/25/2020 12:00:00 AM EDT tablet,delayed release (DR/EC) 30 T JAMESON ONE TABLET BY MOUTH TWICE A DAY TAKE ONE TABLET BY MOUTH TWICE A DAY SOLD: 07/27/2020 [facility] pantoprazole 40 MG Delayed Release Oral Tablet PANTOPRAZOLE SODIUM 05/25/2020 12:00:00 AM EDT tablet,delayed release (DR/EC) 30 T JAMESON ONE TABLET BY MOUTH TWICE A DAY TAKE ONE TABLET BY MOUTH TWICE A DAY SOLD: 06/12/2020 [facility] pantoprazole 40 MG Delayed Release Oral Tablet PANTOPRAZOLE SODIUM 05/25/2020 12:00:00 AM EDT tablet,delayed release (DR/EC) 30 T JAMESON ONE TABLET BY MOUTH TWICE A DAY TAKE ONE TABLET BY MOUTH TWICE A DAY SOLD: 2020 [facility] 0.5 mg 05/23/2020 12:00:00 AM EDT tablet 28 TAKE ONE TABLET BY MOUTH EVERY DAY, MAXIMUM DAILY DOSE = ONE TABLET TAKE ONE TABLET BY MOUTH EVERY DAY, MAXI MUM DAILY DOSE = ONE TABLET SOLD: 05/25/2020 [facility] 4 mg 05/23/2020 12:00:00 AM EDT tablet 90 TAKE ONE TABLET BY MOUTH THREE TIMES A DAY TAKE ONE TABLET BY MOUTH THREE TIMES A DAY SOLD: 05/25/2020 [facility] olanzapine 5 MG Oral Tablet [Zyprexa] Zyprexa 05/13/2020 12:00:00 AM EDT 5 mg by mouth completed <td ID="Medica tionRxNorm_1">036904</td><td ID="MedicationMedication_1">Zyprexa</td><td ID="MedicationRoute_1">by mouth</td><td ID="MedicationRouteConcept_1">G46226</td><td ID="MedicationStartDate_1">05/13/2020</td><td ID="MedicationStopDate_1">07/10/2020</td><td ID="MedicationDosageFrequency_1">once a day</td><td ID="MedicationDuration_1">30</td><td ID="MedicationFormulaStrength_1">5 mg</td><td ID="MedicationDosageForm_1">tablet</td><td ID="MedicationDosageFormCode_1"></td><td ID="MedicationDosageDescription_1">as needed</td><td ID="MedicationMedicationId_1">[id number]</td><td ID="MedicationAccount_1">[id number]</td><td ID="MedicationNpid_1">[id number]</td><td ID="MedicationAuthorFirstName_1">Bren</td><td ID="MedicationAuthorLastName_1">Guy</td><td ID="MedicationTaxonomyCode_1">[id number]</td><td ID="MedicationTaxonomyDesc_1">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</td><td ID="MedicationPhoneNumber_1">[phone]</td> [facility] ([facility]) 50 mg 04/23/2020 12:00:00 AM EDT tablet 30 TAKE ONE TABLET AT BEDTIME TAKE ONE TABLET AT BEDTIME SOLD: 05/25/2020 [facility] gabapentin 800 MG Oral Tablet GABAPENTIN 04/10/2020 12:00:00 AM EDT ta blet 90 TAKE ONE TABLET BY MOUTH THREE TIMES A DAY TAKE ONE TABLET BY MOUTH THREE TIMES A DAY SOLD: 06/06/2020 [facility] 12 HR Bupropion Hydrochloride 100 MG Extended Release Oral Tablet [Wellbutrin] Wellbutrin SR 04/08/2020 12:00:00 AM EDT 100 mg by mouth co mpleted <td ID="MedicationRxNorm_5">571816</td><td ID="MedicationMedication_5">Wellbutrin SR</td><td ID="MedicationRoute_5">by mouth</td><td ID="MedicationRouteConcept_5">Q36942</td><td ID="MedicationStartDate_5">04/08/2020</td><td ID="MedicationStopDate_5">07/12/2020</td><td ID="MedicationDosageFrequency_5">every morning</td><td ID="MedicationDuration_5">30</td><td ID="MedicationFormulaStrength_5">100 mg</td><td ID="MedicationDosageForm_5">tablet sustained-release 12 hr</td><td ID="MedicationDosageFormCode_5"></td><td ID="MedicationDosageDescription_5"></td><td ID="MedicationMedicationId_5">[id number]</td><td ID="MedicationAccount_5">[id number]</td><td ID="MedicationNpid_5">[id number]</td><td ID="MedicationAuthorFirstName_5">Bren</td><td ID="MedicationAuthorLastName_5">Guy</td><td ID="MedicationTaxonomyCode_5">[id number]</td><td ID="MedicationTaxonomyDesc_5"> 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</td><td ID="MedicationPhoneNumber_5">[phone]</td> [facility] ([facility]) Trazodone Hydrochloride 100 MG Oral Tablet trazodone 04/08 12:00:00 AM EDT 100 mg by mouth completed <td ID="Medic ationRxNorm_3">365140</td><td ID="MedicationMedication_3">trazodone</td><td ID="MedicationRoute_3">by mouth</td><td ID="MedicationRouteConcept_3">W79332</td><td ID="MedicationStartDate_3">04/08/2020</td><td ID="MedicationStopDate_3">09/19/2020</td><td ID="MedicationDosageFrequency_3">at bedtime</td><td ID="MedicationDuration_3">30</td><td ID="MedicationFormulaStrength_3">100 mg</td><td ID="MedicationDosageForm_3">tablet</td><td ID="MedicationDosageFormCode_3"></td><td ID="MedicationDosageDescription_3"></td><td ID="MedicationMedicationId_3">[id number]</td><td ID="MedicationAccount_3">[id number]</td><td ID="MedicationNpid_3">[id number]</td><td ID="MedicationAuthorFirstName_3">Bren</td><td ID="MedicationAuthorLastName_3">Guy</td><td ID="MedicationTaxonomyCode_3">[id number]</td><td ID="MedicationTaxonomyDesc_3">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</td><td ID="MedicationPhoneNumber_3">[phone]</td> [facility] ([facility]) Trazodone Hydrochloride 100 MG Oral Tablet trazodone 04/08 12:00:00 AM EDT 100 mg by mouth completed <td ID="Medic ationRxNorm_4">886087</td><td ID="MedicationMedication_4">trazodone</td><td ID="MedicationRoute_4">by mouth</td><td ID="MedicationRouteConcept_4">L76183</td><td ID="MedicationStartDate_4">04/08/2020</td><td ID="MedicationStopDate_4">07/12/2020</td><td ID="MedicationDosageFrequency_4">at bedtime</td><td ID="MedicationDuration_4">30</td><td ID="MedicationFormulaStrength_4">100 mg</td><td ID="MedicationDosageForm_4">tablet</td><td ID="MedicationDosageFormCode_4"></td><td ID="MedicationDosageDescription_4"></td><td ID="MedicationMedicationId_4">[id number]</td><td ID="MedicationAccount_4">[id number]</td><td ID="MedicationNpid_4">[id number]</td><td ID="MedicationAuthorFirstName_4">Bren</td><td ID="MedicationAuthorLastName_4">Guy</td><td ID="MedicationTaxonomyCode_4">[id number]</td><td ID="MedicationTaxonomyDesc_4">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</td><td ID="MedicationPhoneNumber_4">[phone]</td> [facility] ([facility]) 12 HR Bupropion Hydrochloride 100 MG Extended Release Oral Tablet [Wellbutrin] Wellbutrin SR 04/08/2020 12:00:00 AM EDT 100 mg by mouth co mpleted <td ID="MedicationRxNorm_4">803750</td><td ID="MedicationMedication_4">Wellbutrin SR</td><td ID="MedicationRoute_4">by mouth</td><td ID="MedicationRouteConcept_4">E96815</td><td ID="MedicationStartDate_4">04/08/2020</td><td ID="MedicationStopDate_4">09/19/2020</td><td ID="MedicationDosageFrequency_4">every morning</td><td ID="MedicationDuration_4">30</td><td ID="MedicationFormulaStrength_4">100 mg</td><td ID="MedicationDosageForm_4">tablet sustained-release 12 hr</td><td ID="MedicationDosageFormCode_4"></td><td ID="MedicationDosageDescription_4"></td><td ID="MedicationMedicationId_4">[id number]</td><td ID="MedicationAccount_4">[id number]</td><td ID="MedicationNpid_4">[id number]</td><td ID="MedicationAuthorFirstName_4">Bren</td><td ID="MedicationAuthorLastName_4">Guy</td><td ID="MedicationTaxonomyCode_4">[id number]</td><td ID="MedicationTaxonomyDesc_4"> 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</td><td ID="MedicationPhoneNumber_4">[phone]</td> [facility] ([facility]) ziprasidone 60 MG Oral Capsule ziprasidone HCl 03/31/2020 12:00:00 AM EDT 60 mg by mouth completed <td ID="Me dicationRxNorm_2">246710</td><td ID="MedicationMedication_2">ziprasidone HCl</td><td ID="MedicationRoute_2">by mouth</td><td ID="MedicationRouteConcept_2">A81494</td><td ID="MedicationStartDate_2">03/31/2020</td><td ID="MedicationStopDate_2">09/19/2020</td><td ID="MedicationDosageFrequency_2">every evening</td><td ID="MedicationDuration_2">30</td><td ID="MedicationFormulaStrength_2">60 mg</td><td ID="MedicationDosageForm_2">capsule</td><td ID="MedicationDosageFormCode_2"></td><td ID="MedicationDosageDescription_2"> </td><td ID="MedicationMedicationId_2">[id number]</td><td ID="MedicationAccount_2">[id number]</td><td ID="MedicationNpid_2">[id number]</td><td ID="MedicationAuthorFirstName_2">Bren</td><td ID="MedicationAuthorLastName_2">Guy</td><td ID="MedicationTaxonomyCode_2">[id number]</td><td ID="MedicationTaxonomyDesc_2">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</td><td ID="MedicationPhoneNumber_2">[phone]</td> [facility] ([facility]) Prazosin 5 MG Oral Capsule prazosin 03/31/2020 12:00:00 AM EDT 5 mg by mouth completed <td ID="Medicat ionRxNorm_2">476083</td><td ID="MedicationMedication_2">prazosin</td><td ID="MedicationRoute_2">by mouth</td><td ID="MedicationRouteConcept_2">A13422</td><td ID="MedicationStartDate_2">03/31/2020</td><td ID="MedicationStopDate_2">10/12/2020</td><td ID="MedicationDosageFrequency_2">at bedtime</td><td ID="MedicationDuration_2">30</td><td ID="MedicationFormulaStrength_2">5 mg</td><td ID="MedicationDosageForm_2">capsule</td><td ID="MedicationDosageFormCode_2"></td><td ID="MedicationDosageDescription_2"></td><td ID="MedicationMedicationId_2">04410</td><td ID="MedicationAccount_2">[id number]</td><td ID="MedicationNpid_2">[id number]</td><td ID="MedicationAuthorFirstName_2">Bren</td><td ID="MedicationAuthorLastName_2">Guy</td><td ID="MedicationTaxonomyCode_2">[id number]</td><td ID="MedicationTaxonomyDesc_2">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</td><td ID="MedicationPhoneNumber_2">[phone]</td> [facility] ([facility]) Prazosin 5 MG Oral Capsule prazosin 03/31/2020 12:00:00 AM EDT 5 mg by mouth completed <td ID="Medicat ionRxNorm_7">698371</td><td ID="MedicationMedication_7">prazosin</td><td ID="MedicationRoute_7">by mouth</td><td ID="MedicationRouteConcept_7">A63291</td><td ID="MedicationStartDate_7">03/31/2020</td><td ID="MedicationStopDate_7">10/19/2020</td><td ID="MedicationDosageFrequency_7">at bedtime</td><td ID="MedicationDuration_7">30</td><td ID="MedicationFormulaStrength_7">5 mg</td><td ID="MedicationDosageForm_7">capsule</td><td ID="MedicationDosageFormCode_7"></td><td ID="MedicationDosageDescription_7"></td><td ID="MedicationMedicationId_7">86706</td><td ID="MedicationAccount_7">[id number]</td><td ID="MedicationNpid_7">[id number]</td><td ID="MedicationAuthorFirstName_7">Bren</td><td ID="MedicationAuthorLastName_7">Guy</td><td ID="MedicationTaxonomyCode_7">[id number]</td><td ID="MedicationTaxonomyDesc_7">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</td><td ID="MedicationPhoneNumber_7">[phone]</td> [facility] ([facility]) ziprasidone 60 MG Oral Capsule ziprasidone HCl 03/31/2020 12:00:00 AM EDT 60 mg by mouth completed <td ID="Me dicationRxNorm_3">880099</td><td ID="MedicationMedication_3">ziprasidone HCl</td><td ID="MedicationRoute_3">by mouth</td><td ID="MedicationRouteConcept_3">J82539</td><td ID="MedicationStartDate_3">03/31/2020</td><td ID="MedicationStopDate_3">07/12/2020</td><td ID="MedicationDosageFrequency_3">every evening</td><td ID="MedicationDuration_3">30</td><td ID="MedicationFormulaStrength_3">60 mg</td><td ID="MedicationDosageForm_3">capsule</td><td ID="MedicationDosageFormCode_3"></td><td ID="MedicationDosageDescription_3"> </td><td ID="MedicationMedicationId_3">12166</td><td ID="MedicationAccount_3">[id number]</td><td ID="MedicationNpid_3">[id number]</td><td ID="MedicationAuthorFirstName_3">Bren</td><td ID="MedicationAuthorLastName_3">Guy</td><td ID="MedicationTaxonomyCode_3">[id number]</td><td ID="MedicationTaxonomyDesc_3">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</td><td ID="MedicationPhoneNumber_3">[phone]</td> [facility] ([facility]) 5 mg 02/29/2020 12:00:00 AM EDT tablet 30 TAKE ONE TABLET BY MOUTH EVERY EVENING TAKE ONE TABLET BY MOUTH EVERY EVENING SOLD: 05/25/2020 [facility] 81 mg 02/10/2020 12:00:00 AM EDT tablet,delayed release (DR/EC) 30 TAKE ONE TABLET BY MOUTH EVERY DAY TAKE ONE TABLET BY MOUTH EVERY DAY SOLD: 07/06/2020 [facility] 81 mg 02/10/2020 12:00:00 AM EDT tablet,delayed release (DR/EC) 30 TAKE ONE TABLET BY MOUTH EVERY DAY TAKE ONE TABLET BY MOUTH EVERY DAY SOLD: 06/04/2020 [facility] Clonazepam 0.5 MG Oral Tablet clonazePAM (KLONOPIN) 0. 5 MG tablet clonazePAM (KLONOPIN) 0.5 MG tablet 01/22/2020 12:00:00 AM EDT aborted Daily at bedtime [facility] Amitriptyline Hydrochloride 50 MG Oral Tablet amitriptyline 01/21/2020 12:00:00 AM EDT 50 mg completed <td ID ="MedicationRxNorm_6">850035</td><td ID="MedicationMedication_6">amitriptyline</td><td ID="MedicationRoute_6"></td><td ID="MedicationRouteConcept_6"></td><td ID="MedicationStartDate_6">01/21/2020</td><td ID="MedicationStopDate_6">10/19/2020</td><td ID="MedicationDosageFrequency_6">at bedtime</td><td ID="MedicationDuration_6">30</td><td ID="MedicationFormulaStrength_6">50 mg</td><td ID="MedicationDosageForm_6">tablet</td><td ID="MedicationDosageFormCode_6"></td><td ID="MedicationDosageDescription_6"></td><td ID="MedicationMedicationId_6">88289</td><td ID="MedicationAccount_6">[id number]</td><td ID="MedicationNpid_6">[id number]</td><td ID="MedicationAuthorFirstName_6">Bren</td><td ID="MedicationAuthorLastName_6">Guy</td><td ID="MedicationTaxonomyCode_6">[id number]</td><td ID="MedicationTaxonomyDesc_6">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</td><td ID="MedicationPhoneNumber_6">[phone]</td> [facility] ([facility]) Amitriptyline Hydrochloride 50 MG Oral Tablet amitriptyline 01/21/2020 12:00:00 AM EDT 50 mg completed <td ID ="MedicationRxNorm_5">061482</td><td ID="MedicationMedication_5">amitriptyline</td><td ID="MedicationRoute_5"></td><td ID="MedicationRouteConcept_5"></td><td ID="MedicationStartDate_5">01/21/2020</td><td ID="MedicationStopDate_5">01/10/2021</td><td ID="MedicationDosageFrequency_5">at bedtime</td><td ID="MedicationDuration_5">30</td><td ID="MedicationFormulaStrength_5">50 mg</td><td ID="MedicationDosageForm_5">tablet</td><td ID="MedicationDosageFormCode_5"></td><td ID="MedicationDosageDescription_5"></td><td ID="MedicationMedicationId_5">63402</td><td ID="MedicationAccount_5">[id number]</td><td ID="MedicationNpid_5">[id number]</td><td ID="MedicationAuthorFirstName_5">Bren</td><td ID="MedicationAuthorLastName_5">Guy</td><td ID="MedicationTaxonomyCode_5">[id number]</td><td ID="MedicationTaxonomyDesc_5">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</td><td ID="MedicationPhoneNumber_5">[phone]</td> [facility] ([facility]) Amitriptyline Hydrochloride 50 MG Oral Tablet amitriptyline 01/21/2020 12:00:00 AM EDT 50 mg completed <td ID ="MedicationRxNorm_2">358603</td><td ID="MedicationMedication_2">amitriptyline</td><td ID="MedicationRoute_2"></td><td ID="MedicationRouteConcept_2"></td><td ID="MedicationStartDate_2">01/21/2020</td><td ID="MedicationStopDate_2">01/10/2021</td><td ID="MedicationDosageFrequency_2">at bedtime</td><td ID="MedicationDuration_2">30</td><td ID="MedicationFormulaStrength_2">50 mg</td><td ID="MedicationDosageForm_2">tablet</td><td ID="MedicationDosageFormCode_2"></td><td ID="MedicationDosageDescription_2"></td><td ID="MedicationMedicationId_2">[id number]</td><td ID="MedicationAccount_2">[id number]</td><td ID="MedicationNpid_2">[id number]</td><td ID="MedicationAuthorFirstName_2">Bren</td><td ID="MedicationAuthorLastName_2">Guy</td><td ID="MedicationTaxonomyCode_2">[id number]</td><td ID="MedicationTaxonomyDesc_2">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</td><td ID="MedicationPhoneNumber_2">[phone]</td> [facility] ([facility]) Meclizine Hydrochloride 25 MG Oral Tablet meclizine (A NTIVERT) 25 MG tablet meclizine (ANTIVERT) 25 MG tablet 25 mg Oral abor tamar Take 25 mg by mouth nightly [facility] Ergocalciferol 05969 UNT Oral Capsule vi tamin D, Ergocalciferol, 24969 UNITS CAPS vitamin D, Ergocalciferol, 68655 UNITS CAPS 1 {capsule} Oral aborted Take 1 capsule by mouth once a w [place] on Monday [facility] gabapentin 800 MG Oral Tablet gabapentin (NEURONTIN) 8 00 MG tablet gabapentin (NEURONTIN) 800 MG tablet 800 mg Oral aborted Take 800 mg by mouth 3 (three) times a day [facility] tizanidine 4 MG Oral Tablet tiZANidine (ZANAFLEX) 4 MG tablet tiZANidine (ZANAFLEX) 4 MG tablet 4 mg Oral aborted Take 4 mg by mouth 4 (four) times a day [facility] Amitriptyline Hydrochloride 50 MG Oral T ablet amitriptyline (ELAVIL) 50 MG tablet amitriptyline (ELAVIL) 50 MG tablet 50 mg Oral a borted Take 50 mg by mouth nightly [facility] Insurance Providers Payer name Policy type / Coverage type Policy ID Covered republican ID Covered republican's relationship to clark Policy Clark Plan Information [facility] Community Plan Commercial [id number] Self [id number] [facility] Community Plan Commercial [id number] Self [id number] [facility] COMMUNITY PLAN MCDO [id number] SP [id number] [facility] COMMUNITY PLAN MCDO [id number] SP [id number] SELF PAY ONLY [id number] SP [id number] [facility] Commercial [id number] Self [facility] Community Plan Commercial [id number] Self [facility] COMMUNITY PLAN MCDO [id number] SP [id number] [facility] [place] Wellness 4Me F [id number] SELF [id number] [facility] MEDICAID [id number] Charmaine [id number] [facility] Comm Plan Medicaid F [id number] SELF [id number] Medicaid S [id number] S [id number] [facility] COMMUNITY PLAN MCDO [id number] SP [id number] Managed Care - [facility] P [id number] S [id number] [facility] COMMUNITY PLAN MCDO [id number] SP [id number] [facility] COMMUNITY PLAN MCDO [id number] SP [id number] [place] MEDICAID [id number] xxxxxxxxxxx [id number] [facility] MEDICAID [id number] Charmaine 7 [id number] [facility] MEDICARE [id number] Charmaine [id number] [facility] MEDICARE [id number] xxxxxxxxx [id number] [facility] MEDICARE [id number] Charmaine [id number] [facility]-Medicaid [id number] [facility]-Medicaid [id number] ANSI-Medicaid [id number] ANSI-Medicaid [id number] ANSI-Medicaid [id number] ANSI-Medicaid [id number] ANSI-Medicaid [id number] ANSI-Medicaid [id number] ANSI-Medicaid [id number] ANSI-Medicaid [id number] ANSI-Medicaid [id number] ANSI-Medicaid [id number] ANSI-Medicaid [id number] ANSI-Medicaid [id number] ANSI-Medicaid [id number] ANSI-Medicaid [id number] ANSI-Medicaid [id number] [employer] XIX -HMO [id number] 18 [id number] [employer] AMERICHOICE XIX -HMO [id number] ANSI-Medicaid [id number] ANSI-Medicaid [id number] ANSI-Medicaid [id number] ANSI-Medicaid [id number] ANSI-Medicaid [id number] ANSI-Medicaid [id number] ANSI-Medicaid [id number] ANSI-Medicaid [id number] ANSI-Medicaid [id number] ANSI-Medicaid [id number] [facility] MEDICAID PI PI ANSI-Medicaid [id number] ANSI-Medicaid [id number] ANSI-Medicaid [id number] ANSI-Medicaid [id number] ANSI-Medicaid [id number] ANSI-Medicaid [id number] [facility] Health Maintenance Organization (HMO) [id number] Self [id number] Medicaid [place] Medigap Part B [id number] .3598.51689.0 Self [id number] [facility] [id number] Self [id number] Medicaid [place] Med[place]ap [place] [id number] 2.840.1.192087.3.227.99 .3598.05074.0 Self [id number] [facility] [id number] Self [id number] Medicaid [place] Med[place] [id number] 2.840.1.099459.3.227.99 .3598.32165.0 Self [id number] On license of [facility] Care o Commercial [id number] Self [id number] Medicaid [place] Med[place] [id number] 4632.0 Self On license of [facility] Care o Commercial 2.840.1.236189.3.227.9 9.3598.13543.0 Self Medicaid [place] Med[place]ap Part B [id number] [facility] Health Maintenance Organization (HMO) [id number] Self [facility] Hmo Commercial [id number] [facility](MCAID) O [id number] S [id number] MEDICAID [id number] SP [id number] BLUE CROSS THORPE PLAN [id number] SP [id number] BLUE CROSS BLUE SHIELD-CLINIC [id number] BLUE CROSS BLUE SHIELD-PHYSICIAN [id number] 18 [id number] BLUE CROSS BLUE SHIELD-O/P [id number] 18 [id number] [employer]HC COMMUNITY PLAN MCDO [id number] SP [id number] UNHC COMMUNITY PLAN MCDO [id number] SP [id number] SELF PAY ONLY [id number] SP [id number] [place] [id number] SP [id number] [place]SELA [place]ARE [place] O [id number] S [id number] ISELA [id number] SP [id number] ISELA [id number] SP [id number] [facility] O [id number] O [id number] UNHC COMMUNITY PLAN MCDO [id number] SP [id number] UNHC COMMUNITY PLAN MCDO [id number] SP [id number] ANSI-Medicaid [id number] Medicaid [place] Med[place] [id number] Self [id number] ANSI-Medicaid [id number] ANSI-Medicaid [id number] ANSI-Medicaid [id number] ANSI-Medicaid [id number] ANSI-Medicaid [id number] ANSI-Medicaid [id number] ANSI-Medicaid [id number] ANSI-Medicaid [id number] ANSI-Medicaid [id number] Problems, Conditions, and Diagnoses Code Display Name Description Problem Type Effective Dates Data Source(s) I21.4 Non-ST elevation (NSTEMI) myocardial inf arction Non-ST elevation (NSTEMI) myocardial inf Diagnosis 02/11/2021 01:22:28 PM EDT [facility] R00.2 Palpitations Palpitations Diagnosis 12/16/2020 03:08:55 P M EDT [facility] G47.33 Obstructive sleep apnea (adult) (pediatr ic) Obstructive sleep apnea (adult) (pediatr Diagnosis 12/16/2020 03:08:55 PM EDT [facility] I10 Essential (primary) hypertension Essential (primary) h ypertension Diagnosis 12/16/2020 03:08:55 PM EDT 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 E78.5 Hyperlipidemia, unspecified Hyperlipidemia, unspecifie d Diagnosis 12/16/2020 03:08:55 PM EDT [facility] R55 Syncope and collapse Syncope and collapse Diagnosis 12/16/2020 03:08:55 PM EDT 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 R55 Syncope Syncope [id number] 12/16/2020 12:00:00 AM ED T [facility] M96.1 Post-laminectomy syndrome Post-laminectomy syndrome Pr oblem 10/07/2020 12:00:00 AM EST eCW1 ([facility]) F43.10 [id number] PTSD (post-traumatic stress disorder) Pro blem 09/07/2020 12:00:00 AM EST eCW1 ([facility]) F12.10 [id number] Cannabis use disorder, mild, abuse Proble m 08/20/2020 12:00:00 AM EST eCW1 ([facility]) F41.8 [id number] Anxiety with depression Problem 08/20/2020 1 2:00:00 AM EST eCW1 ([facility]) F43.8 Other reactions to severe stress Other S pecified Trauma- and Stressor- Related Disorder Condition 07/21/2020 12:00:00 AM EST [facility] ([facility]) F31.72 Bipolar disorder, in full remission, mos t recent episode hypomanic Bipolar I Disorder, Current or most recent episode hypomanic, In full remission Condition 07/21/2020 12:00:00 AM EST [facility] ([facility]) Surgeries/Procedures Procedure Description Date Indications Data Source(s) OFFICE OUTPATIENT VISIT 15 MINUTES 07/14 12:00:00 AM EDT - 07/14/2021 12:00:00 AM EDT [facility] ([facility]) OFFICE OUTPATIENT VISIT 15 MINUTES 07/14/2021 12:00:00 AM EDT [facility] ([facility]) OFFICE OUTPATIENT VISIT 15 MINUTES 06/15 12:00:00 AM EDT - 06/15/2021 12:00:00 AM EDT [facility] ([facility]) Psychotherapy ADD ON - 30 Minutes 06/15/2021 12:00:00 AM EDT [facility] ([facility]) OFFICE OUTPATIENT VISIT 15 MINUTES 06/15/2021 12:00:00 AM EDT [facility] ([facility]) Imm: Flublok Quadrivalent 18 years & older 0.5mL IM Influenz a 06/11/2021 12:00:00 AM EDT eCW1 ([facility]) NON-INVASIVE PHYSIOLOGIC STUDY EXTREMITY 3 LEVLS 06/04 12:00:00 AM EDT [facility] ([facility]) TSTG ANS FUNCJ CARDIOVAGAL INNERVAJ PARASYMP 12:00:00 AM EDT [facility] ([facility]) TESTING AUTONOMIC NERVOUS SYSTEM FUNCTION 06/04/2021 1 2:00:00 AM EDT [facility] ([facility]) OFFICE OUTPATIENT VISIT 40 MINUTES 06/03/2021 12:00:00 AM EDT [facility] ([facility]) OFFICE OUTPATIENT VISIT 15 MINUTES 04/13 12:00:00 AM EDT - 04/13/2021 12:00:00 AM EDT [facility] ([facility]) OFFICE OUTPATIENT VISIT 15 MINUTES 04/13/2021 12:00:00 AM EDT [facility] ([facility]) ECG ROUTINE ECG W/LEAST 12 LDS W/I&R <td>POCT AMB EKG</td><td>Routine</td><td>12/16/2020 7:46 PM EDT</td><td> Coronary artery disease involving [place]ahu[place] coronary artery of [place] heart with other form of angina pectoris Syncope and collapse</td><td> </td> 12/16/2020 11:46:00 PM EDT Syncope and collapseCoronary artery dise ase involving [place] coronary artery of [place] heart with other form of angina pectoris [facility] Syncope and collapse Coronary artery disease involving [place] coronary artery of [place] heart with other form of angina pectoris OFFICE OUTPATIENT VISIT 15 MINUTES 12/15 12:00:00 AM EDT - 12/15/2020 12:00:00 AM EDT [facility] ([facility]) OFFICE OUTPATIENT VISIT 15 MINUTES 12/15/2020 12:00:00 AM EDT [facility] ([facility]) OFFICE OUTPATIENT VISIT 15 MINUTES 12/09 12:00:00 AM EDT - 12/09/2020 12:00:00 AM EDT [facility] ([facility]) OFFICE OUTPATIENT VISIT 15 MINUTES 12/09/2020 12:00:00 AM EDT [facility] ([facility]) XTRNL ECG < 48 HR RECORDING 12/01/2020 12:00:00 AM EDT [facility] ([facility]) XTRNL ECG CONTINUOUS RHYTHM PHYS REVIEW&INTERPJ 2020 12:00:00 AM EDT [facility] ([facility]) OFFICE OUTPATIENT VISIT 15 MINUTES 11/09 12:00:00 AM EST - 11/09/2020 12:00:00 AM EST [facility] ([facility]) OFFICE OUTPATIENT VISIT 15 MINUTES 11/09/2020 12:00:00 AM EST [facility] ([facility]) OFFICE OUTPATIENT VISIT 15 MINUTES 10/12 12:00:00 AM EST - 10/12/2020 12:00:00 AM EST [facility] ([facility]) Psychotherapy ADD ON - 30 Minutes 10/12/2020 12:00:00 AM EST [facility] ([facility]) OFFICE OUTPATIENT VISIT 15 MINUTES 10/12/2020 12:00:00 AM EST [facility] ([facility]) ECG ROUTINE ECG W/LEAST 12 LDS W/I&R 10/08/2020 12:00: 00 AM EST eCW1 ([facility]) TROPONIN QUANTITATIVE <td>TROPONIN I</td><td>Routine</td><td>10/02/2020</td><td></td><td> </td> 10/02/2020 12:00:00 AM [facility] PROTHROMBIN TIME <td>PROTIME- INR</td><td>Routine</td><td>10/02/2020</td><td></td><td> </td> 10/02/2020 12:00:00 AM [facility] BLOOD COUNT COMPLETE AUTO&AUTO DIFRNTL WBC COUNT <td>C BC AND DIFFERENTIAL</td><td>Routine</td><td>10/02/2020</td><td></td><td> </td> 10/02/2020 12:00:00 AM [facility] PROTHROMBIN TIME <td>POCT INR</td><td>Routine</td><td>10/02/2020</td><td></td><td> </td> 10/02/2020 12:00:00 AM [facility] THYROID STIMULATING HORMONE TSH <td>TSH</td><td>Routine</td><td>10/02/2020</td><td></td><td> </td> 10/02/2020 12:00:00 AM EST [facility] BASIC METABOLIC PANEL CALCIUM TOTAL <td>BASIC METABOLI C PANEL</td><td>Routine</td><td>10/02/2020</td><td></td><td> </td> 10/02/2020 12:00:00 AM EST [facility] MHC Telemed E/M Lvl 3--Est pt 08/26/2020 12:00:00 AM EST - 08/26/2020 12:00:00 AM EST [facility] ([facility]) MHC Telemed E/M Lvl 3--Est pt 08/26/2020 12:00:[address] [facility] ([facility]) Immunization: Flublok Quadrivalent (18 years & older) 0.5mL IM (Influenza) 08/20/2020 12:00:00 AM EST eC1 (Critical access hospital) OFFICE OUTPATIENT VISIT 15 MINUTES 07/21 12:00:00 AM EST - 07/21/2020 12:00:00 AM EST [facility] ([facility]) Psychotherapy ADD ON - 30 Minutes 07/21/2020 12:00:00 AM EST [facility] ([facility]) OFFICE OUTPATIENT VISIT 15 MINUTES 07/21/2020 12:00:00 AM EST [facility] ([facility]) MHC Telemed E/M Lvl 3--Est pt 06/10/2020 12:00:00 AM EDT - 06/10/2020 12:00:00 AM EDT [facility] ([facility]) Psychotherapy ADD ON - 30 Minutes 06/10/2020 12:00:00 AM EDT [facility] ([facility]) MHC Telemed E/M Lvl 3--Est pt 06/10/2020 12:00:00 AM E DT [facility] ([facility]) Results ID Date Data Source CBC - Complete Blood Count 06/22/2021 12:00:00 AM EDT eCW1 ( [facility]) Name Value Range Interpretation Code Description Data Danii rce(s) Supporting Document(s) 3.5 4.0-10.0 WHITE BLOOD COUNT eCW1 ([facility]) 35.1 36.0-47.0 HEMATOCRIT eCW1 (Critical access hospital) 4.15 4.00-5.40 RED BLOOD COUNT eCW1 ([facility]) 11.0 12.0-15.5 HEMOGLOBIN eCW1 (Critical access hospital) 16.7 11.5-14.5 RED CELL DISTRIBUTION WID TH eCW1 ([facility]) 84.6 80.0-96.0 MEAN CORPUSCULAR VOLUME e CW1 ([facility]ly [facility]) 31.3 32.0-36.5 MEAN CORPUSCULAR HGB CONC eCW1 ([facility]ly [facility]) 26.5 27.0-33.0 MEAN CORPUSCULAR HEMOGLOB IN eCW1 ([facility]) 205 150-450 PLATELET COUNT, AUTOMATED eCW1 ([facility]) ID Date Data Source TOTAL IRON BINDING CAPACIT 06/22/2021 12:00:00 AM EDT eCW1 ( [facility]) Name Value Range Interpretation Code Description Data Danii rce(s) Supporting Document(s) 34 50-170 IRON (FE) eCW1 ([facility]) 357 250-450 TOTAL IRON BINDING CAPACI TY eCW1 ([facility]) 9.5 13.2-45.0 PERCENT SATURATION eCW1 ([facility]) ID Date Data Source FERRITIN 06/22/2021 12:00:00 AM EDT eCW1 ([facility]) Name Value Range Interpretation Code Description Data Danii rce(s) Supporting Document(s) 3 8-252 FERRITIN eCW1 ([facility]) ID Date Data Source [id number] 02/12/2021 09:35:26 AM EDT [facility] Name Value Range Interpretation Code Description Data Danii rce(s) Supporting Document(s) &PDF [facility] KNFNVf0vWcDATnBz91/PBNoyEOAuu9BvVCzmRKd2ROnnJPNaQ2LpwAziHHYAC5cPVHjLNBDLVHpmGZG8 waW [file] uNpaHA/MARIA T+6hygXHsoxOYipV2aww2jb3YM231lOS4NaW3l3bUM7uivg+No8owM8ZJZYi2zVLWIYQXyO Et09L05KQ/PlbVRoe6nkQebkSIFrIhuth9pou8/SPiuXAu3rhAq+uR1k9O4W2UM+b9DxGpkovgV2SoF6 5IjfWuAX0wzH3SK+m+sA1zTU5uvCV0P1hwXqtL9jg2 QsPAanVzYbzRubeO/brhHgb0FqMGmD8GpO7Rr0NzVvg3MuTLHhDuA8ABwRagx4VpvYBBXU8B5UUW1kg4 IrRBYhWJckobWkBikASwPsUXHyu8CnDEz9BF8DWJMwAUeyCO7XL9OrATF4Q8U6CpH4sZWrXD2uK9QxAg HlKP3qwBvsLf1BqWBnWMFwW00imY8iZB33YGukP18g h0UMqUKsSX0UPOScZ4MLT2PsU8bzjXhrHYx4G6mlpQbbrZCyPrAbGNOxM7ExKNM4BUKbGtdyeOEkFAcb CxqziGAMKLNpWQKaCYanOB6XKOGgmvLfULBlMGUvTKu+Af7Fc7InIYHgWOaXhm1hz4epTGSTVoNXJhra LCwsvD/w6HMXVqbQKEeOBrLSOkMONr7GWKc6JZKn0q 4lRz5NL5w0+d2oF19vlnp0a42Kmvwz57FDYUMTHYNZLDWRSTABZSDqIc6p/gUFwpLJ18966pWy0CksMZ VsdSKEBYj1UjeXYozkmiMsPj5Jhqt7KvuUTMQZIFZPYFGKRLYFEFESONHCOJGLEHFJKQONHQXAVNV7tz [file] 4ICDwNrsAM1OJq6V5LD/+0h2lBE5+azUNmZNIc+Maria T [file] AgICAgICAgICAgICAgICAgICAgICAgICAgICAgICAgICAgICAgICAgICAgICAgDQogICAgICAgICAgIC AgICAgICAgICAgICAgICAgICAgICAgICAgICAgICAg ICAgICAgICAgICAgICAgICAgICAgICAgICAgICAgICAgICAgICAgICAgICAgICAgICAgICAgICAgDQog ICAgICAgICAgICAgICAgICAgICAgICAgICAgICAgICAgICAgICAgICAgICAgICAgICAgICAgICAgICAg ICAgICAgICAgICAgICAgICAgICAgICAgICAgICAgIC AgICAgICAgDQogICAgICAgICAgICAgICAgICAgICAgICAgICAgICAgICAgICAgICAgICAgICAgICAgIC AgICAgICAgICAgICAgICAgICAgICAgICAgICAgICAgICAgICAgICAgICAgICAgICAgDQogICAgICAgIC AgICAgICAgICAgICAgICAgICAgICAgICAgICAgICAg ICAgICAgICAgICAgICAgICAgICAgICAgICAgICAgICAgICAgICAgICAgICAgICAgICAgICAgICAgICAg DQogICAgICAgICAgICAgICAgICAgICAgICAgICAgICAgICAgICAgICAgICAgICAgICAgICAgICAgICAg ICAgICAgICAgICAgICAgICAgICAgICAgICAgICAgIC AgICAgICAgICAgDQogICAgICAgICAgICAgICAgICAgICAgICAgICAgICAgICAgICAgICAgICAgICAgIC AgICAgICAgICAgICAgICAgICAgICAgICAgICAgICAgICAgICAgICAgICAgICAgICAgICAgDQogICAgIC AgICAgICAgICAgICAgICAgICAgICAgICAgICAgICAg ICAgICAgICAgICAgICAgICAgICAgICAgICAgICAgICAgICAgICAgICAgICAgICAgICAgICAgICAgICAg ICAgDQogICAgICAgICAgICAgICAgICAgICAgICAgICAgICAgICAgICAgICAgICAgICAgICAgICAgICAg ICAgICAgICAgICAgICAgICAgICAgICAgICAgICAgIC AgICAgICAgICAgICAgDQogICAgICAgICAgICAgICAgICAgICAgICAgICAgICAgICAgICAgICAgICAgIC QeNVWxYAFgDSHuMRMjXNZeTNCwAEAbCLUfGCGuSJSiXUGnKZPxCWHrMHCyMSWnUTUaISGdZQRzTMa7N7 okIQBkTAIvZD1bVDu4Dl2+ELbKTxTrLYW8iaBtpG8O MN2li7FuEEptAYEdl5DpBPf9RK1LJIHfEZmaIG9CQNuhec3XTFKnTJNguCACa2vdZmScCLD6RHUhPmli AB1MFLNvG5axmgIcISZxUVHVFPylZGJQLZwjGIJJJG9SNbHyO5DooW97DGOHJa6+DQplbmRvYmoNCjQz ZGCdt5PzXAo1ZK0LREYgUSjlVD1CLSWatB8bYLwyQX 8TSvP3ZVOyRILTEcHvD22vuABsVLm3C2DyZvFtCMYaDymeOYDmTCmoXfQyNHTkOqUiDCkpRH0+ID4+DQ cjEH2BVOyemqNjZFZmDp6QZKJfDNO9POMglZLdXZHhPAHJSJrsYS3DiMUyCGC3qL3oRDprVNMgCYUlX5 xFSeLotGzbHK09dAhduaIrcPToPRr+Ew0ZZR4po7Sr VHm2knRdTAjcKMD8WUjiOYXeYZFpROTwFVS7IEU6MNNBYuWzJOAzRJDrDSczMZWaQZWezs6UDVAsXFE6 ADh6HEJnRCHrVWNqQFlhCLNhRKguXBG1HHPfZDUdAL7LEyEqBHTxTAWqMWfpLNKlVOAaow4HGFHoXZBh IxS2MIZwHOAlRKLgUWygZZNzCWHcObloEOGlTHKaRU 0ATlDpYAZmRAIrWLRyZOUrSYItxm9CBUBlCVEjDqA9IdJeQOAoLQZzWUuxDNEkOAL6TOmwQJImFXAwAO 4YXkMzLFQtZAs9ISTvIFApCFCltr1FCCGxKFHlVRu1OsCfUBJnRIJzWOqkFHXiESS6IGMdFQKtHVYuDF 6SPlHzZXBgCQsnXmWkYMWsQENybv0YXVCsIORvIDF8 QNCmTHNeELMaAWeqMCNhRCCsPpo0ALQiAZWmTX6VCeBnRKRmCBC6JKPcGQYuCAVoic7IQBHwIAStSGH6 AsFpGTBsUWOdKAiyPBRaBKCgLpS3QRMzJLWaWS9TSsNrVQKgAZD3AbxuMSAiUOHutb9CTBHdKWFiQoRn ZHHzGOMuTYUaZZufKRQmGNYiZGA3WPDrATGcFQ2TQs WtIKMbUzJ3YOsoGVNpQHCkvu8MIBVcGDXbYgInRxMtYPEtHZIpEEwqBLTbAHG9TZA3GWWmSVNdHB4GUk AjKCJfHenyJEFaOLEbLLDrvv3OBEWzELTcPiJ6KyOaYQQdKIJzNJpaCBOtYWS3SDI7EQDpWJXzAK3FGy StJJHmOgy8TgSqIYVwJSRwct5JNMXmTFP9IBD2IQUd XCYuEYRuWJtzHPKvXMH0ZZC4IYPcRHPwWM1CHeRmPXRcZXlxPovwVNYkOELilk9VEHRkIGR8NaNdLPJr ZVIeIWPfRZebDXXxOTU3TLy2MXZcTYPrTC8ZDyZjMZPyXKayVLQsHCGgCNKbtx4QETZgGWR0OvU5HlZi KWShNSXzSOvhTLSgHZX2AbxlNJFoEEXxYR3EQkKiWP XnMexjDUrmHIFmTORelh4YURTmVJA0IXY5GgFzOKRoDXPuFRlqWTNrCIdvKuQ3CHWsOMZfRK5EYaUwBW AoSqP6TMqxSYHiXZByzz6KZZGhKKS9LWj9PeWhFRCeOVAaPVmdPOUeRQl9FDK9DMXcTCIlIZ6SRlKfKW SrJWFaVHckJGVuPJQmet9RfQOqdCnirs9CGPzMOj9K nYpvZAU4OJcbQk7bjCT7CcFvHNVKBm4NvlQwBODeCWALSJhbQHWfDBXwRbIqKTQcVPM5OQBmY0NxYYH7 K4JbSJpxKiPlFHU2BeS6YFO6RWA0WfIuHABbJFGeAmP9SgT5MXCeK9EkWAN7QNp+GZ0uSZl+Rv3Cg1Px qaQ0hpFjMJl1LVMcIt7KUEBLT0ABPr== Procedure Social History Code Duration Value Status Description Data Source(s ) Smoking 07/14/2021 12:00:00 AM EDT Current every day smoker co mpleted Current every day smoker [facility] ([facility]) Smoking 06/28/2021 12:00:00 AM EDT Former Smoker completed Former Smoker eCW1 ([facility]ly [facility]) Smoking 06/28/2021 12:00:00 AM EDT Former Smoker completed Former Smoker eCW1 ([facility]) Smoking 06/28/2021 12:00:00 AM EDT Former Smoker completed Former Smoker eCW1 ([facility]) Smoking 06/28/2021 12:00:00 AM EDT Former Smoker completed Former Smoker eCW1 ([facility]) Smoking 06/15/2021 12:00:00 AM EDT Former Smoker completed Former Smoker eCW1 ([facility]) Smoking 06/15/2021 12:00:00 AM EDT Former Smoker completed Former Smoker eCW1 ([facility]) Smoking 06/15/2021 12:00:00 AM EDT Current every day smoker co mpleted Current every day smoker [facility] ([facility]) Smoking 04/13/2021 12:00:00 AM EDT Current every day smoker co mpleted Current every day smoker [facility] ([facility]) Smoking 04/06/2021 12:00:00 AM EDT Former Smoker completed Former Smoker eCW1 ([facility]) Smoking 04/06/2021 12:00:00 AM EDT Former Smoker completed Former Smoker eCW1 ([facility]) Smoking 04/06/2021 12:00:00 AM EDT Former Smoker completed Former Smoker eCW1 ([facility]) Smoking 04/06/2021 12:00:00 AM EDT Former Smoker completed Former Smoker eCW1 ([facility]) Smoking 04/06/2021 12:00:00 AM EDT Former Smoker completed Former Smoker eCW1 ([facility]) Smoking 04/06/2021 12:00:00 AM EDT Former Smoker completed Former Smoker eCW1 ([facility]) Alcohol intake 02/11/2021 12:00:00 AM EDT Current drinker of al cohol (finding) completed Current drinker of alcohol (finding) [facility] Smoking 01/05/2021 12:00:00 AM EDT Former Smoker completed Former Smoker eCW1 ([facility]) Smoking 01/05/2021 12:00:00 AM EDT Former Smoker completed Former Smoker eCW1 ([facility]) Smoking 01/05/2021 12:00:00 AM EDT Former Smoker completed Former Smoker eCW1 ([facility]) Smoking 01/05/2021 12:00:00 AM EDT Former Smoker completed Former Smoker eCW1 ([facility]) Smoking 01/05/2021 12:00:00 AM EDT Former Smoker completed Former Smoker eCW1 ([facility]) Smoking 01/05/2021 12:00:00 AM EDT Former Smoker completed Former Smoker eCW1 ([facility]) Alcohol intake 12/16/2020 12:00:00 AM EDT Yes completed [facility] Cigarette pack-years 12/16/2020 12:00:00 AM EDT UNK completed [facility] Cigarettes smoked current (pack per day) - Reported 12/17/19 12:00:00 AM EDT UNK completed [facility] Smoking 12/16/2020 12:00:00 AM EDT Former smoker completed Former smoker [facility] Smoking 12/15/2020 12:00:00 AM EDT Current every day smoker co mpleted Current every day smoker [facility] ([facility]) Smoking 12/09/2020 12:00:00 AM EDT Current every day smoker co mpleted Current every day smoker [facility] ([facility]) Smoking 12/07/2020 12:00:00 AM EDT Former Smoker completed Former Smoker eCW1 ([facility]) Smoking 12/07/2020 12:00:00 AM EDT Former Smoker completed Former Smoker eCW1 ([facility]) Smoking 12/07/2020 12:00:00 AM EDT Former Smoker completed Former Smoker eCW1 ([facility]) Smoking 12/07/2020 12:00:00 AM EDT Former Smoker completed Former Smoker eCW1 ([facility]) Smoking 11/09/2020 12:00:00 AM EST Current every day smoker co mpleted Current every day smoker [facility] ([facility]) Smoking 10/12/2020 12:00:00 AM EST Current every day smoker co mpleted Current every day smoker [facility] ([facility]) Smoking 10/08/2020 12:00:00 AM EST Former Smoker completed Former Smoker [email or web address] (Formerly [facility]) Smoking 10/08/2020 12:00:00 AM EST Former Smoker completed Former Smoker [email or web address] (Formerly [facility]) Smoking 10/08/2020 12:00:00 AM EST Former Smoker completed Former Smoker [email or web address] (Formerly [facility]) Smoking 10/08/2020 12:00:00 AM EST Former Smoker completed Former Smoker [email or web address] (Formerly [facility]) Smoking 10/08/2020 12:00:00 AM EST Former Smoker completed Former Smoker [email or web address] (Formerly [facility]) Smoking 10/08/2020 12:00:00 AM EST Former Smoker completed Former Smoker [email or web address] (Formerly [facility]) Smoking 10/08/2020 12:00:00 AM EST Former Smoker completed Former Smoker [email or web address] (Formerly [facility]) Smoking 10/08/2020 12:00:00 AM EST Former Smoker completed Former Smoker [email or web address] (Formerly [facility]) Smoking 09/24/2020 12:00:00 AM EST Former Smoker completed Former Smoker [email or web address] (Formerly [facility]) Smoking 09/24/2020 12:00:00 AM EST Former Smoker completed Former Smoker [email or web address] (Formerly [facility]) Smoking 08/26/2020 12:00:00 AM EST Current every day smoker co mpleted Current every day smoker [facility] ([facility]) Smoking 08/20/2020 12:00:00 AM EST Former Smoker completed Former Smoker [email or web address] (Formerly [facility]) Smoking 08/20/2020 12:00:00 AM EST Former Smoker completed Former Smoker [email or web address] (Formerly [facility]) Smoking 08/20/2020 12:00:00 AM EST Former Smoker completed Former Smoker [email or web address] (Formerly [facility]) Smoking 08/20/2020 12:00:00 AM EST Former Smoker completed Former Smoker [email or web address] (Formerly [facility]) Smoking 07/21/2020 12:00:00 AM EST Current every day smoker co mpleted Current every day smoker [facility] ([facility]) Smoking 07/07/2020 12:00:00 AM EDT Former Smoker completed Former Smoker [email or web address] (Formerly [facility]) Smoking 07/07/2020 12:00:00 AM EDT Former Smoker completed Former Smoker [email or web address] (Formerly [facility]) Smoking 07/07/2020 12:00:00 AM EDT Former Smoker completed Former Smoker [email or web address] (Formerly [facility]) Smoking 07/07/2020 12:00:00 AM EDT Former Smoker completed Former Smoker [email or web address] (Formerly [facility]) Smoking 07/07/2020 12:00:00 AM EDT Former Smoker completed Former Smoker [email or web address] (Formerly [facility]) Smoking 07/07/2020 12:00:00 AM EDT Former Smoker completed Former Smoker [email or web address] (Formerly [facility]) Smoking 06/10/2020 12:00:00 AM EDT Current every day smoker co mpleted Current every day smoker [facility] ([facility]) Vital Signs ID Date Data Source UNK Name Value Range Interpretation Code Description Data Source(s) Systolic blood pressure 145 mm[Hg] 145 mm[Hg] M EDENT ([facility], ) Diastolic blood pressure 91 mm[Hg] 91 mm[Hg] MED[facility] ([facility], ) Heart rate 67 /min 67 /min MEDENT ([facility]) Body temperature 98.4 [degF] 98.4 [degF] [facility] ([facility]) Body height 67 [in_i] 67 [in_i] [facility] ([facility]) 5'7" Body weight 186.38 [lb_av] 186.38 [lb_av] MEDEN T ([facility]) Body mass index (BMI) [Ratio] 29.2 kg/m2 29.2 k g/m2 [facility] ([facility]) Outlook body weight 135 [lb_av] 135 [lb_av] [facility] [facility] Body weight 84.540 kg 84.540 kg [facility] ([facility]) Body surface area Derived from formula 1.96 m2 1.96 m2 [facility] ([facility]) Body weight 186.8 [lb_av] 186.8 [lb_av] eCW1 (Formerly [facility]) Heart rate 95 /min 95 /min eCW1 ([facility]) Respiratory rate 18 /min 18 /min eCW1 (Formerly [facility]) Body temperature 97.8 [degF] 97.8 [degF] eCW1 ( Formerly [facility]) Systolic blood pressure 110 mm[Hg] 110 mm[Hg] e CW1 (Formerly [facility]) Diastolic blood pressure 72 mm[Hg] 72 mm[Hg] eCW1 (Formerly [facility]) Body weight 84.73 kg 84.73 kg eCW1 ([facility]) Body height 67 [in_i] 67 [in_i] eCW1 ([facility]) Body mass index (BMI) [Ratio] 29.25 kg/m2 29.25 kg/m2 eCW1 (Formerly [facility]) Body weight 183.2 [lb_av] 183.2 [lb_av] eCW1 (Formerly [facility]) Body weight 83.1 kg 83.1 kg eCW1 ([facility]) Body height 67 [in_i] 67 [in_i] eCW1 ([facility]) Body mass index (BMI) [Ratio] 28.69 kg/m2 28.69 kg/m2 eCW1 (Formerly [facility]) Heart rate 77 /min 77 /min eCW1 ([facility]) Respiratory rate 18 /min 18 /min eCW1 (Formerly [facility]) Body temperature 96.6 [degF] 96.6 [degF] eCW1 ( Formerly [facility]) Systolic blood pressure 138 mm[Hg] 138 mm[Hg] e CW1 ([facility]ly [facility]) Diastolic blood pressure 80 mm[Hg] 80 mm[Hg] eCW1 ([facility]ly [facility]) Body weight 184 [lb_av] 184 [lb_av] eCW1 ([facility]) Body weight 83.46 kg 83.46 kg eCW1 ([facility]) Body height 67 [in_i] 67 [in_i] eCW1 ([facility]) Body mass index (BMI) [Ratio] 28.82 kg/m2 28.82 kg/m2 eCW1 (Formerly [facility]) Heart rate 95 /min 95 /min eCW1 ([facility]) Respiratory rate 18 /min 18 /min eCW1 ([facility]ly [facility]) Body temperature 98.3 [degF] 98.3 [degF] eCW1 ( [facility]ly [facility]) Systolic blood pressure 130 mm[Hg] 130 mm[Hg] e CW1 ([facility]ly [facility]) Diastolic blood pressure 80 mm[Hg] 80 mm[Hg] eCW1 ([facility]ly [facility]) Outlook body weight 135 [lb_av] 135 [lb_av] MEDEN T ([facility], ) Respiratory rate 12 /min 12 /min MEDENT ( [facility], ) Body height 67 [in_i] 67 [in_i] MEDENT ([facility], ) 5'7" Body weight 188.00 [lb_av] 188.00 [lb_av] MEDEN T ([facility], ) Body mass index (BMI) [Ratio] 29.4 kg/m2 29.4 k g/m2 MEDENT ([facility]) Systolic blood pressure 124 mm[Hg] 124 mm[Hg] e CW1 ([facility]ly [facility]) Body weight 193 [lb_av] 193 [lb_av] eCW1 ([facility]) Body height 67 [in_i] 67 [in_i] eCW1 ([facility]) Body mass index (BMI) [Ratio] 30.22 kg/m2 30.22 kg/m2 eCW1 ([facility]ly [facility]) Heart rate 70 /min 70 /min eCW1 ([facility]) Diastolic blood pressure 75 mm[Hg] 75 mm[Hg] eCW1 ([facility]) Respiratory rate 18 /min 18 /min eCW1 ([facility]) Body temperature 98.7 [degF] 98.7 [degF] eCW1 ( [facility]) Systolic blood pressure 132 mm[Hg] 132 mm[Hg] [facility] Diastolic blood pressure 80 mm[Hg] 80 mm[Hg] [facility] Heart rate 80 /min 80 /min [facility] Body height 170.2 cm 170.2 cm [facility] Body weight 84.823 kg 84.823 kg [facility] Body mass index (BMI) [Ratio] 29.29 kg/m2 29.29 kg/m2 [facility] Oxygen saturation in Arterial blood by Pulse oximetry 98 % 98 % [facility] Body weight 189.6 [lb_av] 189.6 [lb_av] eCW1 (Formerly [facility]) Respiratory rate 18 /min 18 /min eCW1 ([facility]ly [facility]) Body height 67 [in_i] 67 [in_i] eCW1 ([facility]) Body temperature 97.0 [degF] 97.0 [degF] eCW1 ( Formerly [facility]) Body mass index (BMI) [Ratio] 29.69 kg/m2 29.69 kg/m2 eCW1 ([facility]ly [facility]) Heart rate 76 /min 76 /min eCW1 ([facility]) Systolic blood pressure 138 mm[Hg] 138 mm[Hg] e CW1 ([facility]ly [facility]) Diastolic blood pressure 82 mm[Hg] 82 mm[Hg] eCW1 ([facility]) Systolic blood pressure 150 mm[Hg] 150 mm[Hg] [facility] Diastolic blood pressure 100 mm[Hg] 100 mm[Hg] [facility] Heart rate 75 /min 75 /min [facility] Body height 170.2 cm 170.2 cm [facility] Body weight 85.911 kg 85.911 kg [facility] Body mass index (BMI) [Ratio] 29.66 kg/m2 29.66 kg/m2 [facility] Oxygen saturation in Arterial blood by Pulse oximetry 98 % 98 % [facility] Body mass index (BMI) [Ratio] 0.00 kg/m2 No rmal (applies to non-numeric results) 0.00 kg/m2 [facility] ([facility]) Systolic blood pressure 0 mm[Hg] Normal (applies t o non-numeric results) 0 mm[Hg] [facility] ([facility]) Diastolic blood pressure 0 mm[Hg] Normal (applies to non-numeric results) 0 mm[Hg] [facility] ([facility]) Body height 0.00 in Normal (applies to non-numeric resu lts) 0.00 in [facility] ([facility]) Body weight Measured 0.00 lbs Normal (applies to n on-numeric results) 0.00 lbs [facility] ([facility]) Body weight 192.4 [lb_av] 192.4 [lb_av] eCW1 (Formerly [facility]) Body height 67 [in_i] 67 [in_i] W1 ([facility]) Body mass index (BMI) [Ratio] 30.13 kg/m2 30.13 kg/m2 [facility] (Formerly [facility]) Heart rate 91 /min 91 /min W1 ([facility]) Respiratory rate 18 /min 18 /min eCW1 ([facility]ly [facility]) Body temperature 97.0 [degF] 97.0 [degF] eCW1 ( [facility]) Systolic blood pressure 128 mm[Hg] 128 mm[Hg] e CW1 ([facility]ly [facility]) Diastolic blood pressure 82 mm[Hg] 82 mm[Hg] eCW1 ([facility]) Body height 0.00 in Normal (applies to non-numeric resu lts) 0.00 in [facility] ([facility]) Body weight Measured 0.00 lbs Normal (applies to n on-numeric results) 0.00 lbs [facility] ([facility]) Body mass index (BMI) [Ratio] 0.00 kg/m2 No rmal (applies to non-numeric results) 0.00 kg/m2 [facility] ([facility]) Systolic blood pressure 0 mm[Hg] Normal (applies t o non-numeric results) 0 mm[Hg] [facility] ([facility]) Diastolic blood pressure 0 mm[Hg] Normal (applies to non-numeric results) 0 mm[Hg] [facility] Body height 0.00 in Normal (applies to non-numeric resu lts) 0.00 in [facility] ([facility]) Body weight Measured 0.00 lbs Normal (applies to n on-numeric results) 0.00 lbs [facility] ([facility]) Body mass index (BMI) [Ratio] 0.00 kg/m2 No rmal (applies to non-numeric results) 0.00 kg/m2 [facility] ([facility]) Systolic blood pressure 0 mm[Hg] Normal (applies t o non-numeric results) 0 mm[Hg] [facility] ([facility]) Diastolic blood pressure 0 mm[Hg] Normal (applies to non-numeric results) 0 mm[Hg] [facility] ([facility]) Body height 67 [in_i] 67 [in_i] eCW1 ([facility]) Body weight 179 [lb_av] 179 [lb_av] eCW1 ([facility]) Body mass index (BMI) [Ratio] 28.03 kg/m2 28.03 kg/m2 eCW1 ([facility]ly [facility]) Heart rate 108 /min 108 /min eCW1 ([facility]) Respiratory rate 18 /min 18 /min eCW1 ([facility]) Body temperature 98.2 [degF] 98.2 [degF] eCW1 ( [facility]) Systolic blood pressure 126 mm[Hg] 126 mm[Hg] e CW1 ([facility]) Diastolic blood pressure 72 mm[Hg] 72 mm[Hg] eCW1 ([facility]) Body weight 182 [lb_av] 182 [lb_av] eCW1 ([facility]) Body height 67 [in_i] 67 [in_i] eCW1 ([facility]) Body mass index (BMI) [Ratio] 28.50 kg/m2 28.50 kg/m2 eCW1 ([facility]) Heart rate 80 /min 80 /min eCW1 ([facility]) Respiratory rate 18 /min 18 /min eCW1 ([facility]) Body temperature 97.9 [degF] 97.9 [degF] eCW1 ( [facility]) Systolic blood pressure 130 mm[Hg] 130 mm[Hg] e CW1 ([facility]) Diastolic blood pressure 88 mm[Hg] 88 mm[Hg] eCW1 ([facility]) Diastolic blood pressure 0 mm[Hg] Normal (applies to non-numeric results) 0 mm[Hg] [facility] ([facility]) Body height 0.00 in Normal (applies to non-numeric resu lts) 0.00 in [facility] ([facility]) Body weight Measured 0.00 lbs Normal (applies to n on-numeric results) 0.00 lbs [facility] ([facility]) Body mass index (BMI) [Ratio] 0.00 kg/m2 No rmal (applies to non-numeric results) 0.00 kg/m2 [facility] ([facility]) Systolic blood pressure 0 mm[Hg] Normal (applies t o non-numeric results) 0 mm[Hg] [facility] ([facility]) Body weight 186 [lb_av] 186 [lb_av] eCW1 ([facility]) Body height 67 [in_i] 67 [in_i] eCW1 ([facility]) Body mass index (BMI) [Ratio] 29.13 kg/m2 29.13 kg/m2 eCW1 ([facility]) Heart rate 96 /min 96 /min eCW1 ([facility]) Respiratory rate 17 /min 17 /min eCW1 ([facility]) Body temperature 96.8 [degF] 96.8 [degF] eCW1 ( [facility]) Systolic blood pressure 132 mm[Hg] 132 mm[Hg] e CW1 ([facility]) Diastolic blood pressure 74 mm[Hg] 74 mm[Hg] eCW1 ([facility]) Body weight 186 [lb_av] 186 [lb_av] eCW1 ([facility]) Body height 67 [in_i] 67 [in_i] eCW1 ([facility]) Body mass index (BMI) [Ratio] 29.13 kg/m2 29.13 kg/m2 eCW1 ([facility]) Heart rate 96 /min 96 /min eCW1 ([facility]) Respiratory rate 17 /min 17 /min eCW1 ([facility]) Body temperature 96.8 [degF] 96.8 [degF] eCW1 ( [facility]) Systolic blood pressure 132 mm[Hg] 132 mm[Hg] e CW1 ([facility]) Diastolic blood pressure 74 mm[Hg] 74 mm[Hg] eCW1 ([facility]) Systolic blood pressure 112 mm[Hg] 112 mm[Hg] [facility] Diastolic blood pressure 76 mm[Hg] 76 mm[Hg] [facility] Heart rate 72 /min 72 /min [facility] Respiratory rate 16 /min 16 /min [facility] Body height 170.2 cm 170.2 cm [facility] Body weight 82.101 kg 82.101 kg [facility] Body mass index (BMI) [Ratio] 28.35 kg/m2 28.35 kg/m2 [facility] Body height 0.00 in Normal (applies to non-numeric resu lts) 0.00 in [facility] ([facility]) Body weight Measured 0.00 lbs Normal (applies to n on-numeric results) 0.00 lbs [facility] ([facility]) Body mass index (BMI) [Ratio] 0.00 kg/m2 No rmal (applies to non-numeric results) 0.00 kg/m2 [facility] ([facility]) Systolic blood pressure 0 mm[Hg] Normal (applies t o non-numeric results) 0 mm[Hg] [facility] ([facility]) Diastolic blood pressure 0 mm[Hg] Normal (applies to non-numeric results) 0 mm[Hg] [facility] ([facility]) Body weight 183.6 [lb_av] 183.6 [lb_av] eCW1 ([facility]ly [facility]) Body height 67 [in_i] 67 [in_i] eCW1 ([facility]) Body mass index (BMI) [Ratio] 28.75 kg/m2 28.75 kg/m2 eCW1 ([facility]) Heart rate 75 /min 75 /min eCW1 ([facility]) Respiratory rate 18 /min 18 /min eCW1 ([facility]) Body temperature 97.0 [degF] 97.0 [degF] eCW1 ( [facility]) Systolic blood pressure 120 mm[Hg] 120 mm[Hg] e CW1 ([facility]) Diastolic blood pressure 76 mm[Hg] 76 mm[Hg] eCW1 ([facility]) Body mass index (BMI) [Ratio] 0.00 kg/m2 No rmal (applies to non-numeric results) 0.00 kg/m2 [facility] ([facility]) Body weight Measured 0.00 lbs Normal (applies to n on-numeric results) 0.00 lbs [facility] ([facility]) Body height 0.00 in Normal (applies to non-numeric resu lts) 0.00 in [facility] ([facility]) Systolic blood pressure 0 mm[Hg] Normal (applies t o non-numeric results) 0 mm[Hg] [facility] ([facility]) Diastolic blood pressure 0 mm[Hg] Normal (applies to non-numeric results) 0 mm[Hg] [facility] ([facility]) Patient Treatment Plan of Care Planned Activity Planned Date Details Description Data Source (s) Iron (Ferrous Sulfate) 325 (65 Fe) MG 06/28/2021 12:00:00 AM EDT eCW1 (Formerly [facility]) Iron (Ferrous Sulfate) 325 (65 Fe) MG 06/28/2021 12:00:00 AM EDT eCW1 (Formerly [facility]) Iron (Ferrous Sulfate) 325 (65 Fe) MG 06/28/2021 12:00:00 AM EDT eCW1 (Formerly [facility]) Iron (Ferrous Sulfate) 325 (65 Fe) MG 06/28/2021 12:00:00 AM EDT eCW1 (Formerly [facility]) tramadol hydrochloride 50 MG Oral Tablet 04/29/2021 12:00:00 AM EDT eCW1 (Formerly [facility]) atorvastatin 20 MG Oral Tablet 02/11/2021 12:00:00 AM EDT [facility] Aspirin 81 MG Delayed Release Oral Tablet 01/22/2021 12:00:00 AM ED T [facility] Amlodipine 5 MG Oral Tablet 12/16/2020 12:00:00 AM EDT [facility] Amitriptyline Hydrochloride 25 MG Oral Tablet 12/15/2020 12:00:00 A M EDT [facility] olanzapine 2.5 MG Oral Tablet 12/15/2020 12:00:00 AM EDT [facility] Prazosin 2 MG Oral Capsule 12/15/2020 12:00:00 AM EDT [facility] Clonazepam 0.5 MG Disintegrating Oral Tablet 11/30/2020 12:00:00 AM EDT [facility] tizanidine 4 MG Oral Tablet 11/30/2020 12:00:00 AM EDT [facility] Aspirin 81 MG Delayed Release Oral Tablet 08/05/2020 12:00:00 AM ES T [facility] Hydroxyzine Hydrochloride 50 MG Oral Tablet 07/22/2020 12:00:00 AM EST [facility] Prazosin 5 MG Oral Capsule 07/08/2020 12:00:00 AM EDT [facility] 12 HR Bupropion Hydrochloride 100 MG Extended Release Oral Tablet 07/02/2020 12:00:00 AM EDT [facility] Trazodone Hydrochloride 100 MG Oral Tablet 07/01/2020 12:00:00 AM E DT [facility] olanzapine 5 MG Oral Tablet 06/11/2020 12:00:00 AM EDT [facility] Clonazepam 0.5 MG Oral Tablet 01/22/2020 12:00:00 AM EDT [facility] Ergocalciferol 33995 UNT Oral Capsule [facility] tizanidine 4 MG Oral Tablet [facility] Meclizine Hydrochloride 25 MG Oral Tablet [facility] Amitriptyline Hydrochloride 50 MG Oral Tablet [facility] gabapentin 800 MG Oral Tablet [facility]
--- NOTE | 2021-07-21 11:20 | REP ---
INDICATION: CHEST PAIN. COMPARISON: 11/24/2019 TECHNIQUE: AP portable upright FINDINGS: Lungs are adequately inflated. There is no definite effusion, dense consolidation or parenchymal mass. No lateral pleural thickening or apical scar. No cardiomegaly, pulmonary edema or vascular redistribution. Aorta and airway intact. Bony thorax without focal lesion. IMPRESSION: No acute cardiopulmonary disease. Stable chest. <Electronically signed by Joao Vergara > 07/21/21 1115
[2021-07-21 11:40] LABS: EOS # 0.1 10^3/uL (0.0-0.5); EOS % 2.2 % (0.0-3.0); HEMATOCRIT 33.4 % (36.0-47.0); HEMOGLOBIN 10.4 g/dl (12.0-15.5); LYMPH % 24.6 % (24.0-44.0); MEAN CORPUSCULAR HEMOGLOBIN 26.7 pg (27.0-33.0); MEAN CORPUSCULAR HGB CONC 31.1 g/dl (32.0-36.5); MEAN CORPUSCULAR VOLUME 85.6 fl (80.0-96.0); MONO # 0.4 10^3/uL (0.0-0.8); MONO % 8.5 % (2.0-8.0); NEUTROPHILS # 2.6 10^3/uL (1.5-8.5); NEUTROPHILS % 63.5 % (36.0-66.0); PLATELET COUNT, AUTOMATED 206 10^3/uL (150-450); WHITE BLOOD COUNT 4.1 10^3/uL (4.0-10.0)
[2021-07-21 11:53] LABS: ALT/SGPT 45 U/L (12-78); BILIRUBIN,DIRECT 0.1 MG/DL (0.0-0.2); BILIRUBIN,TOTAL 0.5 MG/DL (0.2-1.0); BLOOD UREA NITROGEN 10 MG/DL (7-18); CALCIUM LEVEL 8.5 MG/DL (8.5-10.1); CARBON DIOXIDE LEVEL 28 MEQ/L (21-32); CHLORIDE LEVEL 108 MEQ/L (98-107); CREATININE FOR GFR 0.83 MG/DL (0.55-1.30); GLOMERULAR FILTRATION RATE > 60.0 (>58); GLUCOSE, FASTING 85 MG/DL (70-100); LIPASE 437 U/L (73-393); NT-PRO BNP 144 PG/ML (<125); SODIUM LEVEL 140 MEQ/L (136-145)
--- OUTSIDE RECORDS SUMMARY | 2021-07-21 11:56 | CCD ---
Author Author [facility] Organization [facility] Address Unknown Phone Unavailable Care Team Providers Care Putaway Driver Name Role Phone GUY, H BREN SOLIDWORKS DESIGNER Unavailable Unavailable GUY, H BREN SOLIDWORKS DESIGNER Unavailable Unavailable GUY, H BREN SOLIDWORKS DESIGNER Unavailable Unavailable GUY, H BREN SOLIDWORKS DESIGNER Unavailable Unavailable GUY, H BREN SOLIDWORKS DESIGNER Unavailable Unavailable GUY, H BREN SOLIDWORKS DESIGNER Unavailable Unavailable GUY, H BREN SOLIDWORKS DESIGNER Unavailable Unavailable GUY, H BREN SOLIDWORKS DESIGNER Unavailable Unavailable GUY, H BREN SOLIDWORKS DESIGNER Unavailable Unavailable Barroso, L Ailyn PA Unavailable [...] Unavailable Barroso, L Ailyn PA Unavailable Unavailable Barrsoo, L Ailyn PA Unavailable Unavailable Barroso, L [...] Samah MD Unavailable Unavailable Rowena, N Mars SOLIDWORKS DESIGNER Unavailable Unavailable Rowena, N Mars SOLIDWORKS DESIGNER Unavailable Unavailable Oto, N Mars SOLIDWORKS DESIGNER Unavailable Unavailable Oto, N Mars SOLIDWORKS DESIGNER Unavailable Unavailable Oto, N Mars SOLIDWORKS DESIGNER Unavailable Unavailable Rowena, N Mars SOLIDWORKS DESIGNER Unavailable Unavailable Rowena, N Mars SOLIDWORKS DESIGNER Unavailable Unavailable Oto, N Mars SOLIDWORKS DESIGNER Unavailable Unavailable Oto, N Mars SOLIDWORKS DESIGNER Unavailable Unavailable Oto, N Mars SOLIDWORKS DESIGNER Unavailable Unavailable Oto, N Mars SOLIDWORKS DESIGNER Unavailable Unavailable Rowena, N Mars SOLIDWORKS DESIGNER Unavailable Unavailable Rowena, N Mars SOLIDWORKS DESIGNER Unavailable Unavailable Rowena, N Mars SOLIDWORKS DESIGNER Unavailable Unavailable Rowena, N Mars SOLIDWORKS DESIGNER Unavailable Unavailable Oto, N Mars SOLIDWORKS DESIGNER Unavailable Unavailable Rowena, N Mars SOLIDWORKS DESIGNER Unavailable Unavailable Oto, N Mars SOLIDWORKS DESIGNER Unavailable Unavailable Oto, N Mars SOLIDWORKS DESIGNER Unavailable Unavailable Rowena, N Mars SOLIDWORKS DESIGNER Unavailable Unavailable Oto, N Mars SOLIDWORKS DESIGNER Unavailable Unavailable Rowena, N Mars SOLIDWORKS DESIGNER Unavailable Unavailable Rowena, N Mars SOLIDWORKS DESIGNER Unavailable Unavailable Rowena, N Mars SOLIDWORKS DESIGNER Unavailable Unavailable Oto, N Mars SOLIDWORKS DESIGNER Unavailable Unavailable Rowena, N Mars SOLIDWORKS DESIGNER Unavailable Unavailable Oto, N Mars SOLIDWORKS DESIGNER Unavailable Unavailable Oto, N Mars SOLIDWORKS DESIGNER Unavailable Unavailable Rowena, N Mars SOLIDWORKS DESIGNER Unavailable Unavailable Oto, N Mars SOLIDWORKS DESIGNER Unavailable Unavailable Oto, N Mars SOLIDWORKS DESIGNER Unavailable Unavailable Oto, N Mars SOLIDWORKS DESIGNER Unavailable Unavailable Oto, N Mars SOLIDWORKS DESIGNER Unavailable Unavailable Re-disclosure Warning The records that [...] is protected by Article 27-F of the [facility] Public Health law. If you continue you may have access to information: Regarding HIV / AIDS; Provided by facilities licensed or operated by the [facility] Office of Mental Health; or Provided by the [facility] Office for People With Developmental Disabilities. If such information is present, then the following [facility] mandated warning applies: This information has been [...] law may result in a fine or correction sentence or both. A general authorization for the release of medical or other information is NOT sufficient authorization for further disc losure. Allergies and Adverse Reactions Type Description Substance Reaction Status Data Source(s ) Propensity to adverse reactions to substance penicillin v po tassium Penicillin V Potassium 250 MG Oral Tablet urticaria (hives) Active [facility] ( [facility]) Propensity to adverse reactions to substance sertraline Sertraline 25 MG Oral Tablet Active [facility] ([facility]) Propensity to adverse reactions to substance penicillin v po tassium Penicillin V Potassium 250 MG Oral Tablet urticaria (hives) Active [facility] ( [facility]) Propensity to adverse reactions to substance sertraline Sertraline 25 MG Oral Tablet Active [facility] ([facility]) Family History Family Member Name Family Member Gender Family Member Status Date o f Status Description Data Source(s) Unknown Unknown Problem [facility], ) Encounters Encounter Providers Location Date Indications Data Source(s ) [place] [address] [address] 07/16/2021 12:00:00 AM EDT eCW1 ([facility]) Outpatient Attender: BREN MURRIETA NP [facility] [place] trina 07/14/2021 03:30:00 AM EDT - 07/14/2021 03:30:00 AM EDT [facility] ([facility]) Attender: BREN MURRIETA NP 07/14/2021 12:00:00 AM EDT [facility] ([facility]) Outpatient [address] [facility] [address] 06/28/2021 12:00:00 AM EDT eCW1 ([facility]) Unknown [address] [address] 06/23/2021 12:00:00 AM EDT eCW1 ([facility]) Outpatient Attender: BREN MURRIETA NP [facility] [place] trina 06/15/2021 01:30:00 AM EDT - 06/15/2021 01:30:00 AM EDT [facility] ([facility]) Outpatient [address] [facility] [address] 06/15/2021 12:00:00 AM EDT [facility]CW1 [facility]) Attender: BREN MURRIETA NP 06/15/2021 12:00:00 AM EDT [facility] ([facility] [place] [address] [facility] [address] 06/11/2021 12:00:00 AM EDT eCW1 ([facility]) Unknown [address] [facility] [place] [address] 06/04/2021 12:00:00 AM EDT [facility]) Outpatient Attender: Sandoval Herman MD Main office - [employer] [facility] 06/03/2021 02:30:00 PM EDT MEDENT ([facility]) Outpatient GABRIELE-SJFREDDY 06/03/2021 12:00:00 AM EDT [facility] [place] [address] [facility] [address] 06/01/2021 12:00:00 AM EDT eCW1 ([facility]) [place] [address] [facility] [place] [address] 05/31/2021 12:00:00 AM EDT eCW1 ([facility]) [place] [address] [facility] [place] [address] 05/28/2021 12:00:00 AM EDT eCW1 ([facility]) Unknown [address] [facility] [address] 04/29/2021 12:00:00 AM EDT eCW1 ([facility]) Outpatient Attender: BREN MURRIETA NP [facility] 04/13/2021 02:00:00 AM EDT - 04/13/2021 02:00:00 AM EDT [facility] ([facility]) Attender: BREN MURRIETA NP 04/13/2021 12:00:00 AM EDT [facility] ([facility]) [place] [address] [facility] [address] 04/07/2021 12:00:00 AM EDT [facility] [place] [address] [facility] [address] 04/06/2021 12:00:00 AM EDT eCW1 ([facility] [place] [address] [facility] [address] 03/31/2021 12:00:00 AM EDT [facility]CW1 [facility] [place] [address] [facility] [address] 03/01/2021 12:00:00 AM EDT [facility]1 ([facility] [place]) Outpatient Attender: Ailyn Hernandez: Son TOWNSEND.LASHANDA-SJP.LASHANDA 02/11/2021 12:00:00 AM EDT - 02/11/2021 04:04:33 PM EDT [facility] Outpatient Referrer: Ailyn REDDYLASHANDA-SJP.LASHANDA 11/2020 12:00:00 AM EDT [facility] Unknown [address] [facility] [address] 01/27/2021 12:00:00 AM EDT eCW1 ([facility] Unknown [address] [facility] [place] [address] 01/07/2021 12:00:00 AM EDT eCW1 ([facility] [place] [address] [facility] [address] 01/05/2021 12:00:00 AM EDT [facility] [place] [address] [facility] [address] 01/05/2021 12:00:00 AM EDT eCW1 ([facility]) Unknown [address] [facility] [place] [address] 12/28/2020 12:00:00 AM EDT eCW1 ([facility]) [place] [address] [facility] [place] [address] 12/25/2020 12:00:00 AM EDT [facility]CW1 ([facility]) Unknown [address] [facility] [address] 12/18/2020 12:00:00 AM EDT eCW1 ([facility]) Outpatient Attender: Ailyn TOWNSEND.LASHANDA-SJP.LASHANDA 03/2021 03:08:55 PM EDT - 12/17/2020 11:12:24 AM EDT [facility] Outpatient Attender: BREN MURRIETA NP [facility] [place] mena 12/15/2020 04:30:00 AM EDT - 12/15/2020 04:30:00 AM EDT [facility] ([facility]) Attender: BRNE MURRIETA NP 12/15/2020 12:00:00 AM EDT [facility] ([facility]) Outpatient Attender: BREN MURRIETA NP [facility] [place] men[place] 12/09/2020 04:30:00 AM EDT - 12/09/2020 04:30:00 AM EDT [facility] ([facility]) Attender: BREN MURRIETA NP 12/09/2020 12:00:00 AM EDT [facility] ([facility]) Outpatient [address] [facility] [address] 12/07/2020 12:00:00 AM EDT [facility]CW1 [facility]) Unknown [address] [facility] [address] 11/24/2020 12:00:00 AM EDT eCW1 ([facility]) [place] [address] [facility] [address] 11/17/2020 12:00:00 AM EST eCW1 ([facility]) Outpatient Attender: BREN MURRIETA NP [facility] [place] 11/09/2020 04:00:00 AM EST - 11/09/2020 04:00:00 AM EST [facility] ([facility]) Attender: BREN MURRIETA NP 11/09/2020 12:00:00 AM EST [facility] ([facility]) [place] [address] [facility] [address] 10/26/2020 12:00:00 AM EST [facility] [place] [address] [facility] [address] 10/23/2020 12:00:00 AM EST [facility]CW1 [facility]) Outpatient Attender: BREN MURRIETA NP [facility] 10/12/2020 04:00:00 AM EST - 10/12/2020 04:00:00 AM EST [facility] ([facility]) Attender: BREN MURRIETA NP 10/12/2020 12:00:00 AM EST [facility] ([facility]) [place] [address] [facility] [address] 10/09/2020 12:00:00 AM EST [facility]1 [facility] [place]patient [address] [facility] [address] 10/08/2020 12:00:00 AM EST [facility]1 [facility] [place] [address] [facility] [place] [address] 10/08/2020 12:00:00 AM EST [facility]CW1 [facility] Outpatient [address] [facility] [address] 10/07/2020 12:00:00 AM EST [facility]CW1 [facility] [place] [address] [facility] [place] [address] 09/28/2020 12:00:00 AM EST [facility] Unknown [address] [facility] [address] 09/24/2020 12:00:00 AM EST [facility]1 [facility] [place] [address] [facility] [address] 08/31/2020 12:00:00 AM EST [facility]CW1 [facility]) Outpatient Attender: BREN MURRIETA NP [facility] [place] 08/26/2020 01:00:00 AM EST - 08/26/2020 01:00:00 AM EST [facility] ([facility]) Attender: BREN MURRIETA NP 08/26/2020 12:00:00 AM EST [facility] Unknown [address] [facility] [address] 08/21/2020 12:00:00 AM EST [facility]CW1 ([facility]) Outpatient [address] [facility] [address] 08/20/2020 12:00:00 AM EST eCW1 ([facility]) Outpatient Attender: Mars Guaman NP SJP.LASHANDA-SJP.LASHANDA 08/10/2020 12 :00:00 AM EST [facility] Unknown [address], [facility] [address] 07/23/2020 12:00:00 AM EST eCW1 ([facility]) Unknown [address] [facility] [address] 07/23/2020 12:00:00 AM EST [facility]CW1 ([facility]) Outpatient Attender: BREN MURRIETA NP [facility] [place] trina 07/21/2020 11:00:00 AM EST - 07/21/2020 11:00:00 AM EST [facility] ([facility]) Attender: BREN MURRIETA NP 07/21/2020 12:00:00 AM EST [facility] ([facility]) Unknown [address] [facility] [place] [address] 07/09/2020 12:00:00 AM EDT eCW1 ([facility] Unknown [address] [facility] [place] [address] 07/08/2020 12:00:00 AM EDT eCW1 ([facility]) Outpatient [address] [facility] [address] 07/07/2020 12:00:00 AM EDT eCW1 ([facility]) Unknown [address] [facility] [address] 07/07/2020 12:00:00 AM EDT eCW1 ([facility]) Unknown [address] [facility] [address] 06/25/2020 12:00:00 AM EDT eCW1 ([facility]) Outpatient Attender: BREN MURRIETA NP [facility] trina 06/10/2020 11:00:00 AM EDT - 06/10/2020 11:00:00 AM EDT [facility] ([facility]) Attender: BREN MURRIETA NP 06/10/2020 12:00:00 AM EDT [facility] ([facility]) Functional Status Immunizations Vaccine Date Status Description Data Source(s) influenza, recombinant, quadrIvalent,injectable, prese rvative free 06/11/2021 04:34:00 PM EDT completed eCW1 ([facility]) influenza, recombinant, quadrIvalent,injectable, prese rvative free 06/11/2021 04:34:00 PM EDT completed eCW1 ([facility]) influenza, recombinant, quadrIvalent,injectable, prese rvative free 06/11/2021 04:34:00 PM EDT completed eCW1 ([facility]) influenza, recombinant, quadrIvalent,injectable, prese rvative free 06/11/2021 04:34:00 PM EDT completed eCW1 ([facility]) influenza, recombinant, quadrIvalent,injectable, prese rvative free 06/11/2021 04:34:00 PM EDT completed eCW1 ([facility]) influenza, recombinant, quadrIvalent,injectable, prese rvative free 06/11/2021 04:34:00 PM EDT completed eCW1 ([facility]) COVID-19 VACCINE Moderna 01/02/2021 12:00:00 AM EDT completed [facility] Vaccine Series Complete: NOThis Data was Submitted to [facility] Via [facility]. influenza, recombinant, quadrIvalent,injectable, prese rvative free 08/26/2020 03:35:00 PM EST completed eCW1 ([facility]) influenza, recombinant, quadrIvalent,injectable, prese rvative free 08/26/2020 03:35:00 PM EST completed eCW1 ([facility]) influenza, recombinant, quadrIvalent,injectable, prese rvative free 08/26/2020 03:35:00 PM EST completed eCW1 ([facility]) influenza, recombinant, quadrIvalent,injectable, prese rvative free 08/26/2020 03:35:00 PM EST completed eCW1 ([facility]) influenza, recombinant, quadrIvalent,injectable, prese rvative free 08/26/2020 03:35:00 PM EST completed eCW1 ([facility]) influenza, recombinant, quadrIvalent,injectable, prese rvative free 08/26/2020 03:35:00 PM EST completed eCW1 ([facility]) influenza, recombinant, quadrIvalent,injectable, prese rvative free 08/26/2020 03:35:00 PM EST completed eCW1 ([facility]) influenza, recombinant, quadrIvalent,injectable, prese rvative free 08/26/2020 03:35:00 PM EST completed eCW1 ([facility]) influenza, recombinant, quadrIvalent,injectable, prese rvative free 08/26/2020 03:35:00 PM EST completed eCW1 ([facility]) influenza, recombinant, quadrIvalent,injectable, prese rvative free 08/26/2020 03:35:00 PM EST completed eCW1 ([facility]) influenza, recombinant, quadrIvalent,injectable, prese rvative free 08/26/2020 03:35:00 PM EST completed eCW1 ([facility]) influenza, recombinant, quadrIvalent,injectable, prese rvative free 08/26/2020 03:35:00 PM EST completed eCW1 ([facility]) influenza, recombinant, quadrIvalent,injectable, prese rvative free 08/26/2020 03:35:00 PM EST completed eCW1 ([facility]) influenza, recombinant, quadrIvalent,injectable, prese rvative free 08/26/2020 03:35:00 PM EST completed eCW1 ([facility]) influenza, recombinant, quadrIvalent,injectable, prese rvative free 08/26/2020 03:35:00 PM EST completed eCW1 ([facility]) influenza, recombinant, quadrIvalent,injectable, prese rvative free 08/26/2020 03:35:00 PM EST completed eCW1 ([facility]) influenza, recombinant, quadrIvalent,injectable, prese rvative free 08/26/2020 03:35:00 PM EST completed eCW1 ([facility]) influenza, recombinant, quadrIvalent,injectable, prese rvative free 08/26/2020 03:35:00 PM EST completed eCW1 ([facility]) influenza, recombinant, quadrIvalent,injectable, prese rvative free 08/26/2020 03:35:00 PM EST completed eCW1 ([facility]) influenza, recombinant, quadrIvalent,injectable, prese rvative free 08/26/2020 03:35:00 PM EST completed eCW1 ([facility]) influenza, recombinant, quadrIvalent,injectable, prese rvative free 08/26/2020 03:35:00 PM EST completed eCW1 ([facility]) influenza, recombinant, quadrIvalent,injectable, prese rvative free 08/26/2020 03:35:00 PM EST completed eCW1 ([facility]) influenza, recombinant, quadrIvalent,injectable, prese rvative free 08/26/2020 03:35:00 PM EST completed eCW1 ([facility]) influenza, recombinant, quadrIvalent,injectable, prese rvative free 08/26/2020 03:35:00 PM EST completed eCW1 ([facility]) influenza, recombinant, quadrIvalent,injectable, prese rvative free 08/26/2020 03:35:00 PM EST completed eCW1 ([facility]) influenza, recombinant, quadrIvalent,injectable, prese rvative free 08/26/2020 03:35:00 PM EST completed eCW1 ([facility]) influenza, recombinant, quadrIvalent,injectable, prese rvative free 08/26/2020 03:35:00 PM EST completed eCW1 ([facility]) influenza, recombinant, quadrIvalent,injectable, prese rvative free 08/26/2020 03:35:00 PM EST completed eCW1 ([facility]) influenza, recombinant, quadrIvalent,injectable, prese rvative free 08/26/2020 03:35:00 PM EST completed eCW1 ([facility]) influenza, recombinant, quadrIvalent,injectable, prese rvative free 08/26/2020 03:35:00 PM EST completed eCW1 ([facility]) influenza, recombinant, quadrIvalent,injectable, prese rvative free 08/26/2020 03:35:00 PM EST completed eCW1 ([facility]) influenza, recombinant, quadrIvalent,injectable, prese rvative free 08/26/2020 03:35:00 PM EST completed eCW1 ([facility]) influenza, recombinant, quadrIvalent,injectable, prese rvative free 08/26/2020 03:35:00 PM EST completed eCW1 ([facility]) influenza, recombinant, quadrIvalent,injectable, prese rvative free 08/26/2020 03:35:00 PM EST completed eCW1 ([facility]) Medications Medication Brand Name Start Date Product [...] (Ferrous Sulfate) 325 (65 Fe) MG eCW1 ([facility]) 325 mg (65 mg iron) 06/28/2021 12:00:00 AM EDT tablet 15 TAKE ONE TABLET BY MOUTH EVERY OTHER DAY TAKE ONE TABLET BY MOUTH EVERY OTHER DAY SOLD: 06/28/2021 [facility] Iron (Ferrous Sulfate) 325 (65 Fe) MG Iron (Ferrous Sulfate) 325 (65 Fe) MG 06/28/2021 12:00:00 AM EDT 1.0 {tablet} active Iron (Ferrous Sulfate) 325 (65 Fe) MG eCW1 ([facility]) Iron (Ferrous Sulfate) 325 (65 Fe) MG Iron (Ferrous Sulfate) 325 (65 Fe) MG 06/28/2021 12:00:00 AM EDT 1.0 {tablet} active Iron (Ferrous Sulfate) 325 (65 Fe) MG eCW1 ([facility]) Iron (Ferrous Sulfate) 325 (65 Fe) MG Iron (Ferrous Sulfate) 325 (65 Fe) MG 06/28/2021 12:00:00 AM EDT 1.0 {tablet} active Iron (Ferrous Sulfate) 325 (65 Fe) MG eCW1 ([facility]) 2 % 06/24/2021 12:00:00 AM EDT ointment [...] EDT 30 mg by mouth completed <td ID="MedicationRxNorm_1">552891</td><td ID="MedicationMedication_1">Cymbalta</td><td ID="MedicationRoute_1">by mouth</td><td ID="MedicationRouteConcept_1">X65517</td><td ID="MedicationStartDate_1">06/15/2021</td><td ID="MedicationStopDate_1">07/15/2021</td><td ID="MedicationDosageFrequency_1">at bedtime</td><td ID="MedicationDuration_1">30</td><td ID="MedicationFormulaStrength_1">30 mg</td><td ID="MedicationDosageForm_1">capsule,delayed release(DR/EC)</td><td ID="MedicationDosageFormCode_1"></td><td ID="MedicationDosageDescription_1"></td><td ID="MedicationMedicationId_1">[id number]</td><td ID="MedicationAccount_1">[id number]</td><td ID="MedicationNpid_1">[id number]</td><td ID="MedicationAuthorFirstName_1">Bren</td><td ID="MedicationAuthorLastName_1">Guy</td><td ID="MedicationTaxonomyCode_1">[id number]</td><td ID="MedicationTaxonomyDesc_1"> 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</td><td ID="MedicationPhoneNumber_1">[phone]</td> [facility] ziprasidone 60 MG Oral Capsule [Geodon] Geodon 06/15/2021 12: 00:00 AM EDT 60 mg by mouth completed <td ID="Me dicationRxNorm_2">370709</td><td ID="MedicationMedication_2">Geodon</td><td ID="MedicationRoute_2">by mouth</td><td ID="MedicationRouteConcept_2">[id number]</td><td ID="MedicationStartDate_2">06/15/2021</td><td ID="MedicationStopDate_2">08/14/2021</td><td ID="MedicationDosageFrequency_2">every evening</td><td ID="MedicationDuration_2">30</td><td ID="MedicationFormulaStrength_2">60 mg</td><td ID="MedicationDosageForm_2">capsule</td><td ID="MedicationDosageFormCode_2"></td><td ID="MedicationDosageDescription_2">with meals</td><td ID="MedicationMedicationId_2">[id number]</td><td ID="MedicationAccount_2">[id number]</td><td ID="MedicationNpid_2">[id number]</td><td ID="MedicationAuthorFirstName_2">Bren</td><td ID="MedicationAuthorLastName_2">Guy</td><td ID="MedicationTaxonomyCode_2">[id number]</td><td ID="MedicationTaxonomyDesc_2">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</td><td ID="MedicationPhoneNumber_2">[phone]</td> [facility] ([facility]) 100 mg 06/03/2021 12:00:00 AM EDT tablet [...] {tablet_as_needed} active traMADol HCl 50 MG eCW1 ([facility]) 60 mg 04/14/2021 12:00:00 AM EDT capsule 30 TAKE ONE CAPSULE BY MOUTH EVERY EVENING WITH MEALS AT SUPPER TAKE ONE CAPSULE BY MOUTH EVERY EVENING WITH MEALS AT SUPPER SOLD: 04/20/2021 [facility] 5 mg 04/08/2021 12:00:00 AM [...] TABLET BY MOUTH EVERY MORNING SOLD: 04/05/2021 [facility] 50 mg 04/01/2021 12:00:00 AM EDT [...] TABLET BY MOUTH AT BEDTIME SOLD: 02/26/2021 [facility] tizanidine 4 MG Oral Tablet [...] (non-ST elevated myocardial infarction)Coronary artery disease involving [place] coronary artery of [place] heart with other form of angina pectoris Take 1 tablet (20 mg total) by mouth nightly [facility] NSTEMI (non-ST elevated myocardial infar ction) Coronary artery disease involving [place] coronary artery of [place] heart with other form of angina pectoris [...] ONE TABLET B Y MOUTH EVERY DAY [facility] 50 mg 01/01/2021 12:00:00 AM EDT tablet [...] tablet (5 mg total) by mouth d [facility] Essential hypertension 60 mg 12/16/2020 12:00:00 AM [...] 60 mg by mouth completed <td ID="Me dicationRxNorm_5">689466</td><td ID="MedicationMedication_5">Geodon</td><td ID="MedicationRoute_5">by mouth</td><td ID="MedicationRouteConcept_5">X68386</td><td ID="MedicationStartDate_5">12/15/2020</td><td ID="MedicationStopDate_5">02/13/2021</td><td ID="MedicationDosageFrequency_5">every evening</td><td ID="MedicationDuration_5">30</td><td ID="MedicationFormulaStrength_5">60 mg</td><td ID="MedicationDosageForm_5">capsule</td><td ID="MedicationDosageFormCode_5"></td><td ID="MedicationDosageDescription_5">with meals</td><td ID="MedicationMedicationId_5">[id number]</td><td ID="MedicationAccount_5">[id number]</td><td ID="MedicationNpid_5">[id number]</td><td ID="MedicationAuthorFirstName_5">Bren</td><td ID="MedicationAuthorLastName_5">Guy</td><td ID="MedicationTaxonomyCode_5">[id number]</td><td ID="MedicationTaxonomyDesc_5">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</td><td ID="MedicationPhoneNumber_5">[phone]</td> [facility] ([facility]) Amitriptyline Hydrochloride 25 MG Oral T ablet amitriptyline (ELAVIL) 25 MG tablet amitriptyline (ELAVIL) 25 MG tablet 12/15/2020 12:00:00 AM EDT active [facility] olanzapine 2.5 MG Oral Tablet OLANZapine (ZYPREXA) 2.5 MG tablet OLANZapine (ZYPREXA) 2.5 MG tablet 12/15/2020 12:00:00 AM EDT active as needed [facility] Prazosin 2 MG Oral Capsule prazosin (MINIPRESS) 2 MG c apsule prazosin (MINIPRESS) 2 MG capsule 12/15/2020 12:00:00 AM EDT 1 {capsule} Oral active Take 1 capsule by mouth daily [facility] Amitriptyline Hydrochloride 25 MG Oral Tablet amitriptyline 12/15/2020 12:00:00 AM EDT 25 mg completed <td ID ="MedicationRxNorm_3">331836</td><td ID="MedicationMedication_3">amitriptyline</td><td ID="MedicationRoute_3"></td><td ID="MedicationRouteConcept_3"></td><td ID="MedicationStartDate_3">12/15/2020</td><td ID="MedicationStopDate_3">09/13/2021</td><td ID="MedicationDosageFrequency_3">at bedtime</td><td ID="MedicationDuration_3">30</td><td ID="MedicationFormulaStrength_3">25 mg</td><td ID="MedicationDosageForm_3">tablet</td><td ID="MedicationDosageFormCode_3"></td><td ID="MedicationDosageDescription_3"></td><td ID="MedicationMedicationId_3">[id number]</td><td ID="MedicationAccount_3">[id number]</td><td ID="MedicationNpid_3">[id number]</td><td ID="MedicationAuthorFirstName_3">Bren</td><td ID="MedicationAuthorLastName_3">Guy</td><td ID="MedicationTaxonomyCode_3">[id number]</td><td ID="MedicationTaxonomyDesc_3">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</td><td ID="MedicationPhoneNumber_3">[phone]</td> [facility] ([facility]) 50 mg 12/09/2020 12:00:00 AM EDT tablet [...] ORAL active [facility] Amitriptyline Hydrochloride 50 MG Oral Tablet Amitriptyline HCL 11/30/2020 12:00:00 AM EDT ORAL active [facility] ([facility]) olanzapine 2.5 MG Oral Tablet Olanzapine 11/30/2020 12:00:00 AM EDT active [facility] ([facility] Clonazepam 0.5 MG Disintegrating Oral Tablet Clonazepam 11/30/2020 12:00:00 AM EDT ORAL active [facility] ([facility] pantoprazole 40 MG Delayed Release Oral Tablet Pantoprazole Sodium 11/30/2020 12:00:00 AM EDT ORAL active [facility] ([facility]) 12 HR Bupropion Hydrochloride 100 MG Extended Release Oral Tablet Bupropion Hydrochloride ER (SR) 11/30/2020 12:00:00 AM EDT ORAL a ctive [facility] ([facility]) levocetirizine dihydrochloride 5 MG Oral Tablet Levocetirizi ne Dihydrochloride 11/30/2020 12:00:00 AM EDT ORAL active [facility] ([facility]) ziprasidone 80 MG Oral Capsule Ziprasidone HCL 11/30/2020 12:00:00 AM EDT ORAL active [facility] ([facility] Aspirin 81 MG Delayed Release Oral Tablet Aspirin 11/30/2020 1 2:00:00 AM EDT ORAL active [facility] ([facility] tizanidine 4 MG Oral Tablet tiZANidine (ZANAFLEX) 4 MG tablet tiZANidine (ZANAFLEX) 4 MG tablet 11/30/2020 12:00:00 AM EDT 2 mg Oral active Take 2 mg by mouth as needed [facility] Clonazepam 0.5 MG Disintegrating Oral Ta blet clonazePAM (KLONOPIN) 0.5 MG disintegrating tablet clonazePAM (KLONOPIN) 0.5 MG disintegrating tablet 11/30/2020 12:00:00 AM EDT 0.5 {tbl} Oral active Take 0.5 tablets by mouth nightly as needed [facility] 50 mg 11/26/2020 12:00:00 AM EDT tablet [...] 100 mg by mouth co mpleted <td ID="MedicationRxNorm_2">527749</td><td ID="MedicationMedication_2">Wellbutrin SR</td><td ID="MedicationRoute_2">by mouth</td><td ID="MedicationRouteConcept_2">C75888</td><td ID="MedicationStartDate_2">11/09/2020</td><td ID="MedicationStopDate_2">01/08/2021</td><td ID="MedicationDosageFrequency_2">every morning</td><td ID="MedicationDuration_2">30</td><td ID="MedicationFormulaStrength_2">100 mg</td><td ID="MedicationDosageForm_2">tablet sustained-release 12 hr</td><td ID="MedicationDosageFormCode_2"></td><td ID="MedicationDosageDescription_2"></td><td ID="MedicationMedicationId_2">[id number]</td><td ID="MedicationAccount_2">[id number]</td><td ID="MedicationNpid_2">[id number]</td><td ID="MedicationAuthorFirstName_2">Bren</td><td ID="MedicationAuthorLastName_2">Guy</td><td ID="MedicationTaxonomyCode_2">[id number]</td><td ID="MedicationTaxonomyDesc_2"> 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</td><td ID="MedicationPhoneNumber_2">[phone]</td> [facility] ([facility]) 12 HR Bupropion Hydrochloride 100 MG Extended Release Oral Tablet [Wellbutrin] Wellbutrin SR 11/09/2020 12:00:00 AM EST 100 mg by mouth co mpleted <td ID="MedicationRxNorm_1">700724</td><td ID="MedicationMedication_1">Wellbutrin SR</td><td ID="MedicationRoute_1">by mouth</td><td ID="MedicationRouteConcept_1">N93212</td><td ID="MedicationStartDate_1">11/09/2020</td><td ID="MedicationStopDate_1">05/15/2021</td><td ID="MedicationDosageFrequency_1">every morning</td><td ID="MedicationDuration_1">30</td><td ID="MedicationFormulaStrength_1">100 mg</td><td ID="MedicationDosageForm_1">tablet sustained-release 12 hr</td><td ID="MedicationDosageFormCode_1"></td><td ID="MedicationDosageDescription_1"></td><td ID="MedicationMedicationId_1">[id number]</td><td ID="MedicationAccount_1">[id number]</td><td ID="MedicationNpid_1">[id number]</td><td ID="MedicationAuthorFirstName_1">Bren</td><td ID="MedicationAuthorLastName_1">Guy</td><td ID="MedicationTaxonomyCode_1">[id number]</td><td ID="MedicationTaxonomyDesc_1"> 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</td><td ID="MedicationPhoneNumber_1">[phone]</td> [facility] ([facility]) 5 mg 10/28/2020 12:00:00 AM EST tablet [...] 2 mg by mouth completed <td ID="Medicat ionRxNorm_3">426352</td><td ID="MedicationMedication_3">prazosin</td><td ID="MedicationRoute_3">by mouth</td><td ID="MedicationRouteConcept_3">X69877</td><td ID="MedicationStartDate_3">10/12/2020</td><td ID="MedicationStopDate_3">01/10/2021</td><td ID="MedicationDosageFrequency_3">at bedtime</td><td ID="MedicationDuration_3">30</td><td ID="MedicationFormulaStrength_3">2 mg</td><td ID="MedicationDosageForm_3">capsule</td><td ID="MedicationDosageFormCode_3"></td><td ID="MedicationDosageDescription_3"></td><td ID="MedicationMedicationId_3">[id number]</td><td ID="MedicationAccount_3">[id number]</td><td ID="MedicationNpid_3">[id number]</td><td ID="MedicationAuthorFirstName_3">Bren</td><td ID="MedicationAuthorLastName_3">Guy</td><td ID="MedicationTaxonomyCode_3">[id number]</td><td ID="MedicationTaxonomyDesc_3">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</td><td ID="MedicationPhoneNumber_3">[phone]</td> [facility] ([facility]) 0.5 mg 10/12/2020 12:00:00 AM EST tablet 14 TAKE ONE-HALF TABLET BY MOUTH EVERY DAY AT BEDTIME, MAXIMUM DAILY DOSE = 1/2 TAKE ONE-HALF TABLET BY MOUTH EVERY DAY AT BEDTIME, MAXIMUM DAILY DOSE = 1/2 SOLD: 10/12/2020 [facility] Prazosin 2 MG Oral Capsule prazosin 10/12/2020 12:00:00 AM EST 2 mg by mouth completed <td ID="Medicat ionRxNorm_4">060654</td><td ID="MedicationMedication_4">prazosin</td><td ID="MedicationRoute_4">by mouth</td><td ID="MedicationRouteConcept_4">K48985</td><td ID="MedicationStartDate_4">10/12/2020</td><td ID="MedicationStopDate_4">09/13/2021</td><td ID="MedicationDosageFrequency_4">at bedtime</td><td ID="MedicationDuration_4">30</td><td ID="MedicationFormulaStrength_4">2 mg</td><td ID="MedicationDosageForm_4">capsule</td><td ID="MedicationDosageFormCode_4"></td><td ID="MedicationDosageDescription_4"></td><td ID="MedicationMedicationId_4">[id number]</td><td ID="MedicationAccount_4">[id number]</td><td ID="MedicationNpid_4">[id number]</td><td ID="MedicationAuthorFirstName_4">Bren</td><td ID="MedicationAuthorLastName_4">Guy</td><td ID="MedicationTaxonomyCode_4">[id number]</td><td ID="MedicationTaxonomyDesc_4">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</td><td ID="MedicationPhoneNumber_4">[phone]</td> [facility] ([facility]) olanzapine 2.5 MG Oral Tablet olanzapine 10/12/2020 12:00:00 AM EST 2.5 mg by mouth completed <td ID="Medica tionRxNorm_1">355998</td><td ID="MedicationMedication_1">olanzapine</td><td ID="MedicationRoute_1">by mouth</td><td ID="MedicationRouteConcept_1">Z76961</td><td ID="MedicationStartDate_1">10/12/2020</td><td ID="MedicationStopDate_1"></td><td ID="MedicationDosageFrequency_1">every night</td><td ID="MedicationDuration_1"></td><td ID="MedicationFormulaStrength_1">2.5 mg</td><td ID="MedicationDosageForm_1">tablet</td><td ID="MedicationDosageFormCode_1"></td><td ID="MedicationDosageDescription_1">as needed</td><td ID="MedicationMedicationId_1">[id number]</td><td ID="MedicationAccount_1">[id number]</td><td ID="MedicationNpid_1">[id number]</td><td ID="MedicationAuthorFirstName_1">Bren</td><td ID="MedicationAuthorLastName_1">Guy</td><td ID="MedicationTaxonomyCode_1">[id number]</td><td ID="MedicationTaxonomyDesc_1">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</td><td ID="MedicationPhoneNumber_1">[phone]</td> [facility] ([facility]) olanzapine 2.5 MG Oral Tablet olanzapine 10/12/2020 12:00:00 AM EST 2.5 mg by mouth completed <td ID="Medica tionRxNorm_5">560330</td><td ID="MedicationMedication_5">olanzapine</td><td ID="MedicationRoute_5">by mouth</td><td ID="MedicationRouteConcept_5">D39185</td><td ID="MedicationStartDate_5">10/12/2020</td><td ID="MedicationStopDate_5"></td><td ID="MedicationDosageFrequency_5">every night</td><td ID="MedicationDuration_5"></td><td ID="MedicationFormulaStrength_5">2.5 mg</td><td ID="MedicationDosageForm_5">tablet</td><td ID="MedicationDosageFormCode_5"></td><td ID="MedicationDosageDescription_5">as needed</td><td ID="MedicationMedicationId_5">[id number]</td><td ID="MedicationAccount_5">[id number]</td><td ID="MedicationNpid_5">[id number]</td><td ID="MedicationAuthorFirstName_5">Bren</td><td ID="MedicationAuthorLastName_5">Guy</td><td ID="MedicationTaxonomyCode_5">[id number]</td><td ID="MedicationTaxonomyDesc_5">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</td><td ID="MedicationPhoneNumber_5">[phone]</td> [facility] ([facility]) ziprasidone 60 MG Oral Capsule [Geodon] Geodon 10/12/2020 12: 00:00 AM EST 60 mg by mouth completed <td ID="Me dicationRxNorm_4">967595</td><td ID="MedicationMedication_4">Geodon</td><td ID="MedicationRoute_4">by mouth</td><td ID="MedicationRouteConcept_4">D73346</td><td ID="MedicationStartDate_4">10/12/2020</td><td ID="MedicationStopDate_4">12/11/2020</td><td ID="MedicationDosageFrequency_4">every evening</td><td ID="MedicationDuration_4">30</td><td ID="MedicationFormulaStrength_4">60 mg</td><td ID="MedicationDosageForm_4">capsule</td><td ID="MedicationDosageFormCode_4"></td><td ID="MedicationDosageDescription_4">with meals</td><td ID="MedicationMedicationId_4">[id number]</td><td ID="MedicationAccount_4">[id number]</td><td ID="MedicationNpid_4">[id number]</td><td ID="MedicationAuthorFirstName_4">Bren</td><td ID="MedicationAuthorLastName_4">Guy</td><td ID="MedicationTaxonomyCode_4">[id number]</td><td ID="MedicationTaxonomyDesc_4">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</td><td ID="MedicationPhoneNumber_4">[phone]</td> [facility] ([facility]) Prazosin 2 MG Oral Capsule prazosin 10/12/2020 12:00:00 AM EST 2 mg by mouth completed <td ID="Medicat ionRxNorm_6">758563</td><td ID="MedicationMedication_6">prazosin</td><td ID="MedicationRoute_6">by mouth</td><td ID="MedicationRouteConcept_6">B13455</td><td ID="MedicationStartDate_6">10/12/2020</td><td ID="MedicationStopDate_6">01/10/2021</td><td ID="MedicationDosageFrequency_6">at bedtime</td><td ID="MedicationDuration_6">30</td><td ID="MedicationFormulaStrength_6">2 mg</td><td ID="MedicationDosageForm_6">capsule</td><td ID="MedicationDosageFormCode_6"></td><td ID="MedicationDosageDescription_6"></td><td ID="MedicationMedicationId_6">[id number]</td><td ID="MedicationAccount_6">[id number]</td><td ID="MedicationNpid_6">[id number]</td><td ID="MedicationAuthorFirstName_6">Bren</td><td ID="MedicationAuthorLastName_6">Guy</td><td ID="MedicationTaxonomyCode_6">[id number]</td><td ID="MedicationTaxonomyDesc_6">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</td><td ID="MedicationPhoneNumber_6">[phone]</td> [facility] ([facility]) 50 mg 09/29/2020 12:00:00 AM EST tablet [...] BY MOUTH EVERY EVENING NEEDED SOLD: 09/15/2020 [facility] pantoprazole 40 MG Delayed Release Oral Tablet PANTOPRAZOLE SODIUM 09/02/2020 12:00:00 AM EST tablet,delayed release (DR/EC) 60 T JAMESON ONE TABLET BY MOUTH TWICE A DAY TAKE ONE TABLET BY MOUTH TWICE A DAY SOLD: 10/31/2020 [facility] pantoprazole 40 MG Delayed Release Oral Tablet PANTOPRAZOLE SODIUM 09/02/2020 12:00:00 AM EST tablet,delayed release (DR/EC) 60 T JAMESON ONE TABLET BY MOUTH TWICE A DAY TAKE ONE TABLET BY MOUTH TWICE A DAY SOLD: 11/27/2020 [facility] pantoprazole 40 MG Delayed Release Oral Tablet PANTOPRAZOLE SODIUM 09/02/2020 12:00:00 AM EST tablet,delayed release (DR/EC) 60 T [place]ON ONE TABLET BY MOUTH TWICE A DAY TAKE ONE TABLET BY MOUTH TWICE A DAY SOLD: 12/26/2020 [facility] pantoprazole 40 MG Delayed Release Oral Tablet PANTOPRAZOLE SODIUM 09/02/2020 12:00:00 AM EST tablet,delayed release (DR/EC) 60 T [place]AMESON ONE TABLET BY MOUTH TWICE A DAY TAKE ONE TABLET BY MOUTH TWICE A DAY SOLD: 01/28/2021 [facility] pantoprazole 40 MG Delayed Release Oral Tablet PANTOPRAZOLE SODIUM 09/02/2020 12:00:00 AM EST tablet,delayed release (DR/EC) 60 T [place] ONE TABLET BY MOUTH TWICE A DAY TAKE ONE TABLET BY MOUTH TWICE A DAY SOLD: 09/02/2020 [facility] pantoprazole 40 MG Delayed Release Oral Tablet [...] ONE TABLET B Y MOUTH EVERY DAY [facility] 81 mg 08/05/2020 12:00:00 AM EST tablet,delayed [...] TABLET BY MOUTH TWICE A DAY NEEDED [facility] Hydroxyzine Hydrochloride 50 MG Oral Tablet hydroxyzine HCl 07/21/2020 12:00:00 AM EST 50 mg completed <td ID ="MedicationRxNorm_5">108520</td><td ID="MedicationMedication_5">hydroxyzine HCl</td><td ID="MedicationRoute_5"></td><td ID="MedicationRouteConcept_5"></td><td ID="MedicationStartDate_5">07/21/2020</td><td ID="MedicationStopDate_5">09/19/2020</td><td ID="MedicationDosageFrequency_5">twice a day</td><td ID="MedicationDuration_5">30</td><td ID="MedicationFormulaStrength_5">50 mg</td><td ID="MedicationDosageForm_5">tablet</td><td ID="MedicationDosageFormCode_5"></td><td ID="MedicationDosageDescription_5">as needed</td><td ID="MedicationMedicationId_5">[id number]</td><td ID="MedicationAccount_5">[id number]</td><td ID="MedicationNpid_5">[id number]</td><td ID="MedicationAuthorFirstName_5">Bren</td><td ID="MedicationAuthorLastName_5">Guy</td><td ID="MedicationTaxonomyCode_5">[id number]</td><td ID="MedicationTaxonomyDesc_5">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</td><td ID="MedicationPhoneNumber_5">[phone]</td> [facility] ([facility]) olanzapine 5 MG Oral Tablet OLANZAPINE 07/17/2020 12:00:00 AM EST tabl et 30 TAKE ONE TABLET BY MOUTH EVERY NIGHT NEEDED TAKE ONE TABLET BY MOUTH EVERY NIGHT NEEDED SOLD: 07/17/2020 [facility] olanzapine 5 MG Oral Tablet olanzapine 07/17/2020 12:00:00 AM EST 5 mg by mouth completed <td ID="Medica tionRxNorm_3">752544</td><td ID="MedicationMedication_3">olanzapine</td><td ID="MedicationRoute_3">by mouth</td><td ID="MedicationRouteConcept_3">R34254</td><td ID="MedicationStartDate_3">07/17/2020</td><td ID="MedicationStopDate_3">10/12/2020</td><td ID="MedicationDosageFrequency_3">every night</td><td ID="MedicationDuration_3"></td><td ID="MedicationFormulaStrength_3">5 mg</td><td ID="MedicationDosageForm_3">tablet</td><td ID="MedicationDosageFormCode_3"></td><td ID="MedicationDosageDescription_3">as needed</td><td ID="MedicationMedicationId_3">[id number]</td><td ID="MedicationAccount_3">[id number]</td><td ID="MedicationNpid_3">[id number]</td><td ID="MedicationAuthorFirstName_3">Bren</td><td ID="MedicationAuthorLastName_3">Guy</td><td ID="MedicationTaxonomyCode_3">[id number]</td><td ID="MedicationTaxonomyDesc_3">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</td><td ID="MedicationPhoneNumber_3">[phone]</td> [facility] ([facility]) 4 mg 07/09/2020 12:00:00 AM EDT tablet [...] capsule 07/08/2020 12:00:00 AM EDT aborted daily [facility] 5 mg 07/07/2020 12:00:00 AM EDT tablet [...] active Take 100 mg by mouth daily [facility] Trazodone Hydrochloride 100 MG Oral Tablet traZODone ( DESYREL) 100 MG tablet traZODone (DESYREL) 100 MG tablet 07/01/2020 12:00:00 AM EDT 100 mg Oral aborted Take 100 mg by mouth nightly [facility] 50 mg 06/27/2020 12:00:00 AM EDT tablet [...] Take 5 mg by mouth as needed [facility] olanzapine 5 MG Oral Tablet OLANZAPINE 06/11/2020 [...] 30 TAKE ONE TABLET BY MOUTH ANN MAREI RY DAY AT BEDTIME TAKE ONE TABLET [...] 5 mg by mouth completed <td ID="Medica tionRxNorm_1">248190</td><td ID="MedicationMedication_1">Zyprexa</td><td ID="MedicationRoute_1">by mouth</td><td ID="MedicationRouteConcept_1">I63643</td><td ID="MedicationStartDate_1">05/13/2020</td><td ID="MedicationStopDate_1">07/10/2020</td><td ID="MedicationDosageFrequency_1">once a day</td><td ID="MedicationDuration_1">30</td><td ID="MedicationFormulaStrength_1">5 mg</td><td ID="MedicationDosageForm_1">tablet</td><td ID="MedicationDosageFormCode_1"></td><td ID="MedicationDosageDescription_1">as needed</td><td ID="MedicationMedicationId_1">[id number]</td><td ID="MedicationAccount_1">[id number]</td><td ID="MedicationNpid_1">[id number]</td><td ID="MedicationAuthorFirstName_1">Bren</td><td ID="MedicationAuthorLastName_1">Guy</td><td ID="MedicationTaxonomyCode_1">[id number]</td><td ID="MedicationTaxonomyDesc_1">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</td><td ID="MedicationPhoneNumber_1">[phone]</td> [facility] ([facility] 50 mg 04/23/2020 12:00:00 AM EDT tablet [...] 100 mg by mouth co mpleted <td ID="MedicationRxNorm_5">957841</td><td ID="MedicationMedication_5">Wellbutrin SR</td><td ID="MedicationRoute_5">by mouth</td><td ID="MedicationRouteConcept_5">J01786</td><td ID="MedicationStartDate_5">04/08/2020</td><td ID="MedicationStopDate_5">07/12/2020</td><td ID="MedicationDosageFrequency_5">every morning</td><td ID="MedicationDuration_5">30</td><td ID="MedicationFormulaStrength_5">100 mg</td><td ID="MedicationDosageForm_5">tablet sustained-release 12 hr</td><td ID="MedicationDosageFormCode_5"></td><td ID="MedicationDosageDescription_5"></td><td ID="MedicationMedicationId_5">77547</td><td ID="MedicationAccount_5">[id number]</td><td ID="MedicationNpid_5">[id number]</td><td ID="MedicationAuthorFirstName_5">Bren</td><td ID="MedicationAuthorLastName_5">Guy</td><td ID="MedicationTaxonomyCode_5">[id number]</td><td ID="MedicationTaxonomyDesc_5"> 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</td><td ID="MedicationPhoneNumber_5">[phone]</td> [facility] ([facility]) Trazodone Hydrochloride 100 MG Oral Tablet trazodone 04/08 12:00:00 AM EDT 100 mg by mouth completed <td ID="Medic ationRxNorm_3">014586</td><td ID="MedicationMedication_3">trazodone</td><td ID="MedicationRoute_3">by mouth</td><td ID="MedicationRouteConcept_3">K05947</td><td ID="MedicationStartDate_3">04/08/2020</td><td ID="MedicationStopDate_3">09/19/2020</td><td ID="MedicationDosageFrequency_3">at bedtime</td><td ID="MedicationDuration_3">30</td><td ID="MedicationFormulaStrength_3">100 mg</td><td ID="MedicationDosageForm_3">tablet</td><td ID="MedicationDosageFormCode_3"></td><td ID="MedicationDosageDescription_3"></td><td ID="MedicationMedicationId_3">[id number]</td><td ID="MedicationAccount_3">[id number]</td><td ID="MedicationNpid_3">[id number]</td><td ID="MedicationAuthorFirstName_3">Bren</td><td ID="MedicationAuthorLastName_3">Guy</td><td ID="MedicationTaxonomyCode_3">[id number]</td><td ID="MedicationTaxonomyDesc_3">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</td><td ID="MedicationPhoneNumber_3">[phone]</td> [facility] ([facility]) Trazodone Hydrochloride 100 MG Oral Tablet trazodone 04/08 12:00:00 AM EDT 100 mg by mouth completed <td ID="Medic ationRxNorm_4">056599</td><td ID="MedicationMedication_4">trazodone</td><td ID="MedicationRoute_4">by mouth</td><td ID="MedicationRouteConcept_4">H77151</td><td ID="MedicationStartDate_4">04/08/2020</td><td ID="MedicationStopDate_4">07/12/2020</td><td ID="MedicationDosageFrequency_4">at bedtime</td><td ID="MedicationDuration_4">30</td><td ID="MedicationFormulaStrength_4">100 mg</td><td ID="MedicationDosageForm_4">tablet</td><td ID="MedicationDosageFormCode_4"></td><td ID="MedicationDosageDescription_4"></td><td ID="MedicationMedicationId_4">[id number]</td><td ID="MedicationAccount_4">[id number]</td><td ID="MedicationNpid_4">[id number]</td><td ID="MedicationAuthorFirstName_4">Bren</td><td ID="MedicationAuthorLastName_4">Guy</td><td ID="MedicationTaxonomyCode_4">[id number]</td><td ID="MedicationTaxonomyDesc_4">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</td><td ID="MedicationPhoneNumber_4">[phone]</td> [facility] ([facility]) 12 HR Bupropion Hydrochloride 100 MG Extended Release Oral Tablet [Wellbutrin] Wellbutrin SR 04/08/2020 12:00:00 AM EDT 100 mg by mouth co mpleted <td ID="MedicationRxNorm_4">457448</td><td ID="MedicationMedication_4">Wellbutrin SR</td><td ID="MedicationRoute_4">by mouth</td><td ID="MedicationRouteConcept_4">B75175</td><td ID="MedicationStartDate_4">04/08/2020</td><td ID="MedicationStopDate_4">09/19/2020</td><td ID="MedicationDosageFrequency_4">every morning</td><td ID="MedicationDuration_4">30</td><td ID="MedicationFormulaStrength_4">100 mg</td><td ID="MedicationDosageForm_4">tablet sustained-release 12 hr</td><td ID="MedicationDosageFormCode_4"></td><td ID="MedicationDosageDescription_4"></td><td ID="MedicationMedicationId_4">[id number]</td><td ID="MedicationAccount_4">[id number]</td><td ID="MedicationNpid_4">[id number]</td><td ID="MedicationAuthorFirstName_4">Bren</td><td ID="MedicationAuthorLastName_4">Guy</td><td ID="MedicationTaxonomyCode_4">[id number]</td><td ID="MedicationTaxonomyDesc_4"> 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</td><td ID="MedicationPhoneNumber_4">[phone]</td> [facility] ([facility] ziprasidone 60 MG Oral Capsule ziprasidone HCl 03/31/2020 12:00:00 AM EDT 60 mg by mouth completed <td ID="Me dicationRxNorm_2">087000</td><td ID="MedicationMedication_2">ziprasidone HCl</td><td ID="MedicationRoute_2">by mouth</td><td ID="MedicationRouteConcept_2">[id number]</td><td ID="MedicationStartDate_2">03/31/2020</td><td ID="MedicationStopDate_2">09/19/2020</td><td ID="MedicationDosageFrequency_2">every evening</td><td ID="MedicationDuration_2">30</td><td ID="MedicationFormulaStrength_2">60 mg</td><td ID="MedicationDosageForm_2">capsule</td><td ID="MedicationDosageFormCode_2"></td><td ID="MedicationDosageDescription_2"> </td><td ID="MedicationMedicationId_2">[id number]</td><td ID="MedicationAccount_2">[id number]</td><td ID="MedicationNpid_2">[id number]</td><td ID="MedicationAuthorFirstName_2">Bren</td><td ID="MedicationAuthorLastName_2">Guy</td><td ID="MedicationTaxonomyCode_2">[id number]</td><td ID="MedicationTaxonomyDesc_2">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</td><td ID="MedicationPhoneNumber_2">[phone]</td> [facility] ([facility]) Prazosin 5 MG Oral Capsule prazosin 03/31/2020 12:00:00 AM EDT 5 mg by mouth completed <td ID="Medicat ionRxNorm_2">831546</td><td ID="MedicationMedication_2">prazosin</td><td ID="MedicationRoute_2">by mouth</td><td ID="MedicationRouteConcept_2">B98416</td><td ID="MedicationStartDate_2">03/31/2020</td><td ID="MedicationStopDate_2">10/12/2020</td><td ID="MedicationDosageFrequency_2">at bedtime</td><td ID="MedicationDuration_2">30</td><td ID="MedicationFormulaStrength_2">5 mg</td><td ID="MedicationDosageForm_2">capsule</td><td ID="MedicationDosageFormCode_2"></td><td ID="MedicationDosageDescription_2"></td><td ID="MedicationMedicationId_2">[id number]</td><td ID="MedicationAccount_2">[id number]</td><td ID="MedicationNpid_2">[id number]</td><td ID="MedicationAuthorFirstName_2">Bren</td><td ID="MedicationAuthorLastName_2">Guy</td><td ID="MedicationTaxonomyCode_2">[id number]</td><td ID="MedicationTaxonomyDesc_2">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</td><td ID="MedicationPhoneNumber_2">[phone]</td> [facility] ([facility]) Prazosin 5 MG Oral Capsule prazosin 03/31/2020 12:00:00 AM EDT 5 mg by mouth completed <td ID="Medicat ionRxNorm_7">283542</td><td ID="MedicationMedication_7">prazosin</td><td ID="MedicationRoute_7">by mouth</td><td ID="MedicationRouteConcept_7">P48179</td><td ID="MedicationStartDate_7">03/31/2020</td><td ID="MedicationStopDate_7">10/19/2020</td><td ID="MedicationDosageFrequency_7">at bedtime</td><td ID="MedicationDuration_7">30</td><td ID="MedicationFormulaStrength_7">5 mg</td><td ID="MedicationDosageForm_7">capsule</td><td ID="MedicationDosageFormCode_7"></td><td ID="MedicationDosageDescription_7"></td><td ID="MedicationMedicationId_7">[id number]</td><td ID="MedicationAccount_7">[id number]</td><td ID="MedicationNpid_7">[id number]</td><td ID="MedicationAuthorFirstName_7">Bren</td><td ID="MedicationAuthorLastName_7">Guy</td><td ID="MedicationTaxonomyCode_7">[id number]</td><td ID="MedicationTaxonomyDesc_7">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</td><td ID="MedicationPhoneNumber_7">[phone]</td> [facility] ([facility]) ziprasidone 60 MG Oral Capsule ziprasidone HCl 03/31/2020 12:00:00 AM EDT 60 mg by mouth completed <td ID="Me dicationRxNorm_3">197533</td><td ID="MedicationMedication_3">ziprasidone HCl</td><td ID="MedicationRoute_3">by mouth</td><td ID="MedicationRouteConcept_3">U97946</td><td ID="MedicationStartDate_3">03/31/2020</td><td ID="MedicationStopDate_3">07/12/2020</td><td ID="MedicationDosageFrequency_3">every evening</td><td ID="MedicationDuration_3">30</td><td ID="MedicationFormulaStrength_3">60 mg</td><td ID="MedicationDosageForm_3">capsule</td><td ID="MedicationDosageFormCode_3"></td><td ID="MedicationDosageDescription_3"> </td><td ID="MedicationMedicationId_3">[id number]</td><td ID="MedicationAccount_3">[id number]</td><td ID="MedicationNpid_3">[id number]</td><td ID="MedicationAuthorFirstName_3">Bren</td><td ID="MedicationAuthorLastName_3">Guy</td><td ID="MedicationTaxonomyCode_3">[id number]</td><td ID="MedicationTaxonomyDesc_3">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</td><td ID="MedicationPhoneNumber_3">[phone]</td> [facility] ([facility]) 5 mg 02/29/2020 12:00:00 AM EDT tablet [...] 12:00:00 AM EDT aborted Daily at bedtime [facility] Amitriptyline Hydrochloride 50 MG Oral Tablet amitriptyline 01/21/2020 12:00:00 AM EDT 50 mg completed <td ID ="MedicationRxNorm_6">230481</td><td ID="MedicationMedication_6">amitriptyline</td><td ID="MedicationRoute_6"></td><td ID="MedicationRouteConcept_6"></td><td ID="MedicationStartDate_6">01/21/2020</td><td ID="MedicationStopDate_6">10/19/2020</td><td ID="MedicationDosageFrequency_6">at bedtime</td><td ID="MedicationDuration_6">30</td><td ID="MedicationFormulaStrength_6">50 mg</td><td ID="MedicationDosageForm_6">tablet</td><td ID="MedicationDosageFormCode_6"></td><td ID="MedicationDosageDescription_6"></td><td ID="MedicationMedicationId_6">[id number]</td><td ID="MedicationAccount_6">[id number]</td><td ID="MedicationNpid_6">[id number]</td><td ID="MedicationAuthorFirstName_6">Bren</td><td ID="MedicationAuthorLastName_6">Guy</td><td ID="MedicationTaxonomyCode_6">[id number]</td><td ID="MedicationTaxonomyDesc_6">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</td><td ID="MedicationPhoneNumber_6">[phone]</td> [facility] ([facility]) Amitriptyline Hydrochloride 50 MG Oral Tablet amitriptyline 01/21/2020 12:00:00 AM EDT 50 mg completed <td ID ="MedicationRxNorm_5">868915</td><td ID="MedicationMedication_5">amitriptyline</td><td ID="MedicationRoute_5"></td><td ID="MedicationRouteConcept_5"></td><td ID="MedicationStartDate_5">01/21/2020</td><td ID="MedicationStopDate_5">01/10/2021</td><td ID="MedicationDosageFrequency_5">at bedtime</td><td ID="MedicationDuration_5">30</td><td ID="MedicationFormulaStrength_5">50 mg</td><td ID="MedicationDosageForm_5">tablet</td><td ID="MedicationDosageFormCode_5"></td><td ID="MedicationDosageDescription_5"></td><td ID="MedicationMedicationId_5">[id number]</td><td ID="MedicationAccount_5">[id number]</td><td ID="MedicationNpid_5">[id number]</td><td ID="MedicationAuthorFirstName_5">Bren</td><td ID="MedicationAuthorLastName_5">Guy</td><td ID="MedicationTaxonomyCode_5">[id number]</td><td ID="MedicationTaxonomyDesc_5">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</td><td ID="MedicationPhoneNumber_5">[phone]</td> [facility] ([facility]) Amitriptyline Hydrochloride 50 MG Oral Tablet amitriptyline 01/21/2020 12:00:00 AM EDT 50 mg completed <td ID ="MedicationRxNorm_2">252399</td><td ID="MedicationMedication_2">amitriptyline</td><td ID="MedicationRoute_2"></td><td ID="MedicationRouteConcept_2"></td><td ID="MedicationStartDate_2">01/21/2020</td><td ID="MedicationStopDate_2">01/10/2021</td><td ID="MedicationDosageFrequency_2">at bedtime</td><td ID="MedicationDuration_2">30</td><td ID="MedicationFormulaStrength_2">50 mg</td><td ID="MedicationDosageForm_2">tablet</td><td ID="MedicationDosageFormCode_2"></td><td ID="MedicationDosageDescription_2"></td><td ID="MedicationMedicationId_2">[id number]</td><td ID="MedicationAccount_2">[id number]</td><td ID="MedicationNpid_2">[id number]</td><td ID="MedicationAuthorFirstName_2">Bren</td><td ID="MedicationAuthorLastName_2">Guy</td><td ID="MedicationTaxonomyCode_2">[id number]</td><td ID="MedicationTaxonomyDesc_2">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</td><td ID="MedicationPhoneNumber_2">[phone]</td> [facility] ([facility]) Meclizine Hydrochloride 25 MG Oral Tablet meclizine (A NTIVERT) 25 MG tablet meclizine (ANTIVERT) 25 MG tablet 25 mg Oral abor tamar Take 25 mg by mouth nightly [facility] Ergocalciferol 00632 UNT Oral Capsule vi tamin D, Ergocalciferol, 64385 UNITS CAPS vitamin D, Ergocalciferol, 11193 UNITS CAPS 1 {capsule} Oral aborted Take 1 capsule by mouth once a w [place] on Monday [facility] gabapentin 800 MG Oral Tablet gabapentin (NEURONTIN) 8 00 MG tablet gabapentin (NEURONTIN) 800 MG tablet 800 mg Oral aborted Take 800 mg by mouth 3 (three) times a day [facility] tizanidine 4 MG Oral Tablet tiZANidine (ZANAFLEX) 4 MG tablet tiZANidine (ZANAFLEX) 4 MG tablet 4 mg Oral aborted Take 4 mg by mouth 4 (four) times a day [facility] Amitriptyline Hydrochloride 50 MG Oral T ablet amitriptyline (ELAVIL) 50 MG tablet amitriptyline (ELAVIL) 50 MG tablet 50 mg Oral a borted Take 50 mg by mouth nightly [facility] Insurance Providers Payer name Policy type / Coverage type Policy ID Covered alliance party ID Covered alliance party's relationship to clark Policy Clark Plan Information [facility] Community Plan Commercial [id number] Self [id number] [facility] Community Plan Commercial [id number] Self [id number] [facility] COMMUNITY PLAN MCDO [id number] SP [id number] [facility] COMMUNITY PLAN MCDO [id number] SP [id number] SELF PAY ONLY [id number] SP [id number] [id number] Self [facility] Community Plan Commercial [id number] Self [facility] COMMUNITY PLAN MCDO [id number] SP [id number] [facility] [place] Well[place] 4[place] F [id number] SELF [id number] [facility] MEDICAID [id number] Charmaine [id number] [facility] Comm Plan Medicaid F [id number] SELF [id number] Medicaid S [id number] S [id number] [facility] COMMUNITY PLAN MCDO [id number] SP [id number] Managed Care - [facility] P [id number] S [id number] [facility] COMMUNITY PLAN MCDO [id number] SP [id number] [facility] COMMUNITY PLAN MCDO [id number] SP [id number] [place] MEDICAID [id number] xxxxxxxxxxx [id number] [facility] MEDICAID [id number] Charmaine 7 [id number] [facility] MEDICARE [id number] Charmaine [id number] [facility] MEDICARE [id number] xxxxxxxxx [id number] [facility] MEDICARE [id number] Charmaine [id number] [facility]-Medicaid [id number] [facility]-Medicaid [id number] ANSI-Medicaid [id number] ANSI-Medicaid [id number] ANSI-Medicaid [id number] ANSI-Medicaid [id number] ANSI-Medicaid [id number] ANSI-Medicaid [id number] ANSI-Medicaid [id number] ANSI-Medicaid [id number] ANSI-Medicaid [id number] ANSI-Medicaid [id number] ANSI-Medicaid [id number] ANSI-Medicaid [id number] ANSI-Medicaid [id number] ANSI-Medicaid [id number] ANSI-Medicaid [id number] UNHC AMERICHOICE XIX -HMO [id number] 18 [id number] UNHC AMERICHOICE XIX -HMO [id number] 18 [id number] ANSI-Medicaid [id number] ANSI-Medicaid [id number] ANSI-Medicaid [id number] ANSI-Medicaid [id number] ANSI-Medicaid [id number] ANSI-Medicaid [id number] ANSI-Medicaid [id number] ANSI-Medicaid [id number] ANSI-Medicaid [id number] ANSI-Medicaid [id number] [facility] MEDICAID PI PI ANSI-Medicaid [id number] ANSI-Medicaid [id number] ANSI-Medicaid [id number] ANSI-Medicaid [id number] ANSI-Medicaid [id number] ANSI-Medicaid [id number] [facility] Health Maintenance Organization (HMO) [id number] Self [id number] Medicaid [place] Medigap Part [place] [id number] Self [id number] [facility] [id number] Self [id number] [place] Medigap Part [place] [id number] Self [id number] [facility] Commercial [id number] Self [id number] Medicaid [place] Medigap Part [place] [id number] Self [id number] [facility] Care o Commercial [id number] Self [id number] [place] Medigap Part [place] [id number] 4632.0 Self Critical access hospital Care o Commercial [id number] Self Medicaid [place] Medigap [place] [id number] [facility] Health Maintenance Organization (HMO) [id number] Self [facility] Hmo Commercial [id number] [facility]CA[facility]) O [id number] S [id number] MEDICAID [id number] SP [id number] [employer]ORPE PLAN [id number] SP [id number] BL[employer]OSS BLUE SHIELD-CLINIC [id number] 18 [id number] BLUE CROSS BLUE SHIELD-PHYSICIAN [id number] 18 [id number] BLUE CROSS BLUE SHIELD-O/P [id number] 18 [id number] UNHC COMMUNITY PLAN MCDO [id number] SP [id number] UNHC COMMUNITY PLAN MCDO [id number] SP [id number] SELF PAY ONLY [id number] SP [id number] [place] [id number] SP [id number] [place]ARE [place] O [id number] S [id number] ISELA [id number] SP [id number] ISELA [id number] SP [id number] [facility] O [id number] O [id number] UNHC COMMUNITY PLAN MCDO [id number] SP [id number] UNHC COMMUNITY PLAN MCDO [id number] SP [id number] ANSI-Medicaid [id number] Medicaid [place] Medig[place] Part [place] [id number] Self [id number] ANSI-Medicaid [id number] ANSI-Medicaid [id number] ANSI-Medicaid [id number] ANSI-Medicaid [id number] ANSI-Medicaid [id number] ANSI-Medicaid [id number] ANSI-Medicaid [id number] ANSI-Medicaid [id number] ANSI-Medicaid [id number] Problems, Conditions, and Diagnoses Code Display Name Description Problem Type Effective Dates Data Source(s) I21.4 Non-ST elevation (NSTEMI) myocardial inf arction Non-ST elevation (NSTEMI) myocardial inf Diagnosis 02/11/2021 01:22:28 PM EDT [facility] R00.2 Palpitations Palpitations Diagnosis 12/16/2020 03:08:55 P M EDT [facility] G47.33 Obstructive sleep apnea (adult) (pediatr ic) Obstructive sleep apnea (adult) (pediatr Diagnosis 12/16/2020 03:08:55 PM EDT [facility] I10 Essential (primary) hypertension Essential (primary) h ypertension Diagnosis 12/16/2020 03:08:55 PM EDT [facility] 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 Atherosclerotic heart disease of [place] Diagnosis 12/16/2020 03:08:55 PM EDT [facility] E78.5 Hyperlipidemia, unspecified Hyperlipidemia, unspecifie d Diagnosis 12/16/2020 03:08:55 PM EDT [facility] R55 Syncope and collapse Syncope and collapse Diagnosis 12/16/2020 03:08:55 PM EDT [facility] F31.60 Bipolar disorder, current episode mixed, unspecified Bipolar disorder, current episode mixed, unspecified Condition 07/14/2021 12:00:00 AM ED T [facility] ([facility]) D50.9 [id number] Iron deficiency anemia, unspecif ied iron deficiency anemia type Problem 06/28/2021 12:00:00 AM EDT eCW1 ([facility]) K91.2 [id number] 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 Problem 06/28/2021 12:00:00 AM EDT eCW1 ([facility]) M96.1 [id number] Lumbar post-laminectomy syndrome Problem 06/15/2021 12:00:00 AM EDT eCW1 ([facility]) F33.1 [id number] Moderate episode of recurrent major depre ssive disorder Problem 06/11/2021 12:00:00 AM EDT eCW1 ([facility]) R00.2 Palpitations Palpitations [id number] 12/16/2020 12:00:00 A M EDT [facility] R55 Syncope Syncope [id number] 12/16/2020 12:00:00 AM ED T [facility] M96.1 Post-laminectomy syndrome Post-laminectomy syndrome Pr oblem 10/07/2020 12:00:00 AM EST eCW1 ([facility]) F43.10 [id number] PTSD (post-traumatic stress disorder) Pro blem 09/07/2020 12:00:00 AM EST eCW1 ([facility]) F12.10 [id number] Cannabis use disorder, mild, abuse Proble m 08/20/2020 12:00:00 AM EST eCW1 ([facility]) F41.8 [id number] Anxiety with depression Problem 08/20/2020 1 2:00:00 AM EST eCW1 ([facility]) F43.8 Other reactions to severe stress Other S pecified Trauma- and Stressor- Related Disorder Condition 07/21/2020 12:00:00 AM EST [facility] ([facility]) F31.72 Bipolar disorder, in full remission, mos t recent episode hypomanic Bipolar I Disorder, Current or most recent episode hypomanic, In full remission Condition 07/21/2020 12:00:00 AM EST [facility] ([facility]) Surgeries/Procedures Procedure Description Date Indications Data Source(s) OFFICE OUTPATIENT VISIT 15 MINUTES 07/14 12:00:00 AM EDT - 07/14/2021 12:00:00 AM EDT [facility] ([facility]) OFFICE OUTPATIENT VISIT 15 MINUTES 07/14/2021 12:00:00 AM EDT [facility] ([facility]) OFFICE OUTPATIENT VISIT 15 MINUTES 06/15 12:00:00 AM EDT - 06/15/2021 12:00:00 AM EDT [facility] ([facility]) Psychotherapy ADD ON - 30 Minutes 06/15/2021 12:00:00 AM EDT [facility] ([facility]) OFFICE OUTPATIENT VISIT 15 MINUTES 06/15/2021 12:00:00 AM EDT [facility] ([facility]) Imm: Flublok Quadrivalent 18 years & older 0.5mL IM Influenz a 06/11/2021 12:00:00 AM EDT eCW1 ([facility]) NON-INVASIVE PHYSIOLOGIC STUDY EXTREMITY 3 LEVLS 06/04 12:00:00 AM EDT [facility] ([facility]) TSTG ANS FUNCJ CARDIOVAGAL INNERVAJ PARASYMP 12:00:00 AM EDT [facility] ([facility]) TESTING AUTONOMIC NERVOUS SYSTEM FUNCTION 06/04/2021 1 2:00:00 AM EDT [facility] ([facility]) OFFICE OUTPATIENT VISIT 40 MINUTES 06/03/2021 12:00:00 AM EDT [facility] ([facility]) OFFICE OUTPATIENT VISIT 15 MINUTES 04/13 12:00:00 AM EDT - 04/13/2021 12:00:00 AM EDT [facility] ([facility]) OFFICE OUTPATIENT VISIT 15 MINUTES 04/13/2021 12:00:00 AM EDT [facility] ([facility]) ECG ROUTINE ECG W/LEAST 12 LDS W/I&R <td>POCT AMB EKG</td><td>Routine</td><td>12/16/2020 7:46 PM EDT</td><td> Coronary artery disease involving [place] coronary artery of [place] heart with other form of angina pectoris Syncope and collapse</td><td> </td> 12/16/2020 11:46:00 PM EDT Syncope and collapseCoronary artery dise ase involving [place] coronary artery of [place] heart with other form of angina pectoris [facility] Syncope and collapse Coronary artery disease involving [place] coronary artery of [place] heart with other form of angina pectoris OFFICE OUTPATIENT VISIT 15 MINUTES 12/15 12:00:00 AM EDT - 12/15/2020 12:00:00 AM EDT [facility] ([facility]) OFFICE OUTPATIENT VISIT 15 MINUTES 12/15/2020 12:00:00 AM EDT [facility] ([facility]) OFFICE OUTPATIENT VISIT 15 MINUTES 12/09 12:00:00 AM EDT - 12/09/2020 12:00:00 AM EDT [facility] ([facility]) OFFICE OUTPATIENT VISIT 15 MINUTES 12/09/2020 12:00:00 AM EDT [facility] ([facility]) XTRNL ECG < 48 HR RECORDING 12/01/2020 12:00:00 AM EDT [facility] ([facility]) XTRNL ECG CONTINUOUS RHYTHM PHYS REVIEW&INTERPJ 2020 12:00:00 AM EDT [facility] ([facility]) OFFICE OUTPATIENT VISIT 15 MINUTES 11/09 12:00:00 AM EST - 11/09/2020 12:00:00 AM EST [facility] ([facility]) OFFICE OUTPATIENT VISIT 15 MINUTES 11/09/2020 12:00:00 AM EST [facility] ([facility]) OFFICE OUTPATIENT VISIT 15 MINUTES 10/12 12:00:00 AM EST - 10/12/2020 12:00:00 AM EST [facility] ([facility]) Psychotherapy ADD ON - 30 Minutes 10/12/2020 12:00:00 AM EST [facility] ([facility]) OFFICE OUTPATIENT VISIT 15 MINUTES 10/12/2020 12:00:00 AM EST [facility] ([facility]) ECG ROUTINE ECG W/LEAST 12 LDS W/I&R 10/08/2020 12:00: 00 AM EST [email or web address] ([facility]) TROPONIN QUANTITATIVE <td>TROPONIN I</td><td>Routine</td><td>10/02/2020</td><td></td><td> </td> 10/02/2020 12:00:00 AM [facility] PROTHROMBIN TIME <td>PROTIME- INR</td><td>Routine</td><td>10/02/2020</td><td></td><td> </td> 10/02/2020 12:00:00 AM [facility] BLOOD COUNT COMPLETE AUTO&AUTO DIFRNTL WBC COUNT <td>C BC AND DIFFERENTIAL</td><td>Routine</td><td>10/02/2020</td><td></td><td> </td> 10/02/2020 12:00:00 AM [facility] PROTHROMBIN TIME <td>POCT INR</td><td>Routine</td><td>10/02/2020</td><td></td><td> </td> 10/02/2020 12:00:00 AM [facility] THYROID STIMULATING HORMONE TSH <td>TSH</td><td>Routine</td><td>10/02/2020</td><td></td><td> </td> 10/02/2020 12:00:00 AM EST [facility] BASIC METABOLIC PANEL CALCIUM TOTAL <td>BASIC METABOLI C PANEL</td><td>Routine</td><td>10/02/2020</td><td></td><td> </td> 10/02/2020 12:00:00 AM EST [facility] MHC Telemed E/M Lvl 3--Est pt 08/26/2020 12:00:00 AM EST - 08/26/2020 12:00:00 AM EST [facility] ([facility]) MHC Telemed E/M Lvl 3--Est pt 08/26/2020 12:00:[address] [facility] ([facility]) Immunization: Flublok Quadrivalent (18 years & older) 0.5mL IM (Influenza) 08/20/2020 12:00:00 AM EST [email or web address] ([facility]) OFFICE OUTPATIENT VISIT 15 MINUTES 07/21 12:00:00 AM EST - 07/21/2020 12:00:00 AM EST [facility] ([facility]) Psychotherapy ADD ON - 30 Minutes 07/21/2020 12:00:00 AM EST [facility] ([facility]) OFFICE OUTPATIENT VISIT 15 MINUTES 07/21/2020 12:00:00 AM EST [facility] ([facility]) MHC Telemed E/M Lvl 3--Est pt 06/10/2020 12:00:00 AM EDT - 06/10/2020 12:00:00 AM EDT [facility] ([facility]) Psychotherapy ADD ON - 30 Minutes 06/10/2020 12:00:00 AM EDT [facility] ([facility]) MHC Telemed E/M Lvl 3--Est pt 06/10/2020 12:00:00 AM E DT [facility] ([facility]) Results ID Date Data Source CBC - Complete Blood Count 06/22/2021 12:00:00 AM EDT eCW1 ( [facility]) Name Value Range Interpretation Code Description Data Danii rce(s) Supporting Document(s) 3.5 4.0-10.0 WHITE BLOOD COUNT eCW1 ([facility]) 35.1 36.0-47.0 HEMATOCRIT eCW1 ([facility]) 4.15 4.00-5.40 RED BLOOD COUNT eCW1 ([facility]) 11.0 12.0-15.5 HEMOGLOBIN eCW1 ([facility]) 16.7 11.5-14.5 RED CELL DISTRIBUTION WID TH eCW1 ([facility]) 84.6 80.0-96.0 MEAN CORPUSCULAR VOLUME e CW1 ([facility]) 31.3 32.0-36.5 MEAN CORPUSCULAR HGB CONC eCW1 ([facility]) 26.5 27.0-33.0 MEAN CORPUSCULAR HEMOGLOB IN eCW1 ([facility]) 205 150-450 PLATELET COUNT, AUTOMATED eCW1 ([facility]) ID Date Data Source TOTAL IRON BINDING CAPACIT 06/22/2021 12:00:00 AM EDT eCW1 ( [facility]) Name Value Range Interpretation Code Description Data Danii rce(s) Supporting Document(s) 34 50-170 IRON (FE) eCW1 ([facility]) 357 250-450 TOTAL IRON BINDING CAPACI TY eCW1 ([facility]) 9.5 13.2-45.0 PERCENT SATURATION eCW1 ([facility]) ID Date Data Source FERRITIN 06/22/2021 12:00:00 AM EDT eCW1 ([facility]) Name Value Range Interpretation Code Description Data Danii rce(s) Supporting Document(s) 3 8-252 FERRITIN eCW1 ([facility]) ID Date Data Source [id number] 02/12/2021 09:35:26 AM EDT [facility] Name Value Range Interpretation Code Description Data Danii rce(s) Supporting Document(s) &PDF [facility] [id number]/YAOpzWUTra7OaGZoqJBl5AGapUZYnS2ZeuDdqJZOUS6sMXXnBPMLGZIeuOQT5 waW [file] uNpaHA/MARIA T+0aymDPynrKGnkW6uyz0va1XW670gMD9FqL3e1aOG8wzky+Fj6uaZ4KBNGr1pQFZDFSFnQ Nu67V45DL/ElvSTtm8haIokyXBGzArmpt5duo2/ZTfyNDs2jcNk+aP3e2Q2S8VF+l3ViWznrhoF6SzR4 6ZplSpWL1gpQ6NU+m+zN1zTB8xcCT7U9fmRmcN7wd5 QsPAanVzYbzRubeO/zxkHvr9LjVZzA3ZpM5Rm9MxQfy5SwLXCrMrH3ZDxUemq3IdfFOVPU9N6FHW7bk4 OdKKOvGNhpuoAdFsqHVeMiJYDoa1KeSIv1LM7LEJTbUXfwOG3JW2BtTYN7A6T2OpY7jEHxVI9tJ7NzRl RsLD4ufTicXg7YpNCkKYFxR78jgS1kGZ63EJbtQ36j c8AEzXScWE3LWKMgK4EFB0MkL1msyEybSVf5U4rdxBdayDJiLdWaXYYtF5QmFTK8NIVhSncncYXjHPxp VefulWOKELYvADSvMCbxAJ1DCWBgyuTxOYDwTVBjVKi+Jx6Lu9QnTXIbUGtChj1ec9isRGHPGoNOQcly LCwsvD/x6RXGBcdOGNbCFfJPKiWBRy8OLFf3VQYp6u 9fEh3XR3h4+r8oL74xgda6y63Yscvv83WQGLGFFDUJLDGADFWYYCYwTi6c/uPUzgOR71739pYm3EteTP NfzWQCJCy2BzoUQxfkjcOjAq3Becx5EacYQJVBDTAFEOOUTRDWLJPVDWVAWRTUTJIARFHNPFZYKOC1ed [file] 8IHAhSzfNX7DMg5N9PZ/+6o8vRJ8+azUNmZNIc+Maria T [file] AgICAgICAgICAgICAgICAgICAgICAgICAgICAgICAgICAgICAgICAgICAgICAgDQogICAgICAgICAgIC AgICAgICAgICAgICAgICAgICAgICAgICAgICAgICAg ICAgICAgICAgICAgICAgICAgICAgICAgICAgICAgICAgICAgICAgICAgICAgICAgICAgICAgICAgDQog ICAgICAgICAgICAgICAgICAgICAgICAgICAgICAgICAgICAgICAgICAgICAgICAgICAgICAgICAgICAg ICAgICAgICAgICAgICAgICAgICAgICAgICAgICAgIC AgICAgICAgDQogICAgICAgICAgICAgICAgICAgICAgICAgICAgICAgICAgICAgICAgICAgICAgICAgIC AgICAgICAgICAgICAgICAgICAgICAgICAgICAgICAgICAgICAgICAgICAgICAgICAgDQogICAgICAgIC AgICAgICAgICAgICAgICAgICAgICAgICAgICAgICAg ICAgICAgICAgICAgICAgICAgICAgICAgICAgICAgICAgICAgICAgICAgICAgICAgICAgICAgICAgICAg DQogICAgICAgICAgICAgICAgICAgICAgICAgICAgICAgICAgICAgICAgICAgICAgICAgICAgICAgICAg ICAgICAgICAgICAgICAgICAgICAgICAgICAgICAgIC AgICAgICAgICAgDQogICAgICAgICAgICAgICAgICAgICAgICAgICAgICAgICAgICAgICAgICAgICAgIC AgICAgICAgICAgICAgICAgICAgICAgICAgICAgICAgICAgICAgICAgICAgICAgICAgICAgDQogICAgIC AgICAgICAgICAgICAgICAgICAgICAgICAgICAgICAg ICAgICAgICAgICAgICAgICAgICAgICAgICAgICAgICAgICAgICAgICAgICAgICAgICAgICAgICAgICAg ICAgDQogICAgICAgICAgICAgICAgICAgICAgICAgICAgICAgICAgICAgICAgICAgICAgICAgICAgICAg ICAgICAgICAgICAgICAgICAgICAgICAgICAgICAgIC AgICAgICAgICAgICAgDQogICAgICAgICAgICAgICAgICAgICAgICAgICAgICAgICAgICAgICAgICAgIC VvMXOgCGAlMPNxSZRkGNTfFFLwFUZqXMYzSQEeVTNsAPWgEVWuNHYtLWLcGPCdOLJvNQXyMUMoCKj0O0 qkUMLzYBQcPG2wLJx2Gi6+AShELsLtJAT0jdQhhJ5A BG7gs6IsANeiWYSjp7EiLZc8XZ1OELNzGZyeYY7GNEwqhk9WZOZlSEMmeUVAr6ueGlAaTFW2XMZdBfla TJ3XPVAqG6ecivAsNHUnWYQBPHlcVBOTDDbkHDHGBS2WHpKwO6YcbY92OKSIIb7+DQplbmRvYmoNCjQz IYLze6OqFMw6BI5CFLUiMSayUB3CQKSntC9nOMcdYT 9QVnZ8RAJiNLFFIaIsE80yxZPtQAc5Q9HiFjErAFLfTkzhXKYvVEtbQnGqGVPpNcIjJJasER6+ID4+DQ rjWC3TGQchtxHyLMMmVt2FKCLzLQM3BZDmkSJuECIzQQGNMMajET6QnCWcDDU9pW5dMLtjXPEhOACuD7 dIIsOqqBzkHH77yGpgklUddXVfMXj+Wx3KHW4co6Wx EQy3wgIiUOijUDY8IWcrQXXwAXMuISZhJVY9KMT9CLHDWaNyREWwRSEtBEwxUNFxOYFibs3DXQJrQMZ7 XFg2VGTuXPWjGILrCVprKMIhYInaSES0SODpFTVzDN8KOqSuMTDnNMMmXJjqROMwEEUkap0DFGLdDJYr AxT5BHNkZTWbAVTiMYnfXDHiBZCrCmefHCGhVQBwNB 9PXmWvJPUbGUJaZUBvYXZvGQVmmq5FIUCwMVNdCwE4SjAaGHEmKINiGGrqZYVxRFN1XJiwYTXfHGVhLF 3IWkOfQOFtFDa1ZDGuYNDnACSxgr0KEOLhXUVuHHq6RcKgBYQiEGXgKFodUHNlZPI0GCOpHLCbZHGoME 0CLfWkKCSaZFafNnUqVZLxQXRsav2NDJXpONUgYWD8 EFLvWEIyMXGmGReuSTAnTJWiNmf1UGChUUWdPF4JTdEdYAJrLBK6RXYzJSQrNDSsot9RXVZjETFpSUX8 HrQpPMAlZTZtDJmjJNGyTBNmWbA9DBIxVKMsIW1UOaQgMHDgQUV9KjwkDNGtCAXfsf4XUDIkXUWkEnXf JWKqKNTiKFHbIZieIWVuDFIzGVY6TGGySVBbXE3CNr MbDFAzSjU0KKidXMJfZRHshv0TNGVcLEXmGoZkDvFcDABjEIRlXKsuXCQfGLJ8ZNA0DAKcNPYsNB0SVb VtBHCyOpblUPTkDQUwOESwwd0IZZNpZAUiVvS9AcMlOEEoAAZvOUonLTSvMMW9LDV3JSYsBDEaAE9USy DgQWNzKip7ArEoJXGvWTTvxl6VSBRrVDC9ZJY7RPLi QFXfABClGRuqCGGvNJB3MZO6UOFyAOTkNP1RXzPeCIFfSEpuMearDPOjJDBywe8LYESbXCR2ZsYzRKBr ELLgERKnAZhoMCJgZXA4GKv3ZYPoLAHiEL5NXdLvAGZaWSsmPPNlIIKgKUZscc5OCJBnEGD6HhP8EdOi ZUJgQPYsQWgiIOPbMST6FxjjDKTvKOZdQN2BCuSaAD HsKskeFGsgHKEaGUWgdd7MSLQtCXX0MOM8PhYpUOYwXUZmAPgkCYDiXEmxPwE4EFLdVBCfWZ6OImHrPG GwWbH9TXyyZOVuOIXnhk7YXCQoJBV7RWu4XzAeAVKgJDNrMZwgOYEsHBj8PDB1FQCsFHBuTA6LJxUkWC DhAVGtGTaqHOAdXYYnlf9NmUMqoGsoog6DIYmZYw7T dJrmDRO4WVjrOz7ioQG5ZaFqEYWGRb6QmjUbTTWyUIVMHHtyGITqPFJdUbDcMPHlZVN8RFKuJ5KeAQA7 P8TuMNydTdWbAYD8MaW8AIF6UMK9HaIsAIWqQIPtGzO2EcP0IIQiL5BaRFK8RTh+RN4lBBq+Yl7Go8Wz omN5inGgXEw1JNYzBv8KCFJSE5GAEl== Procedure Social History Code Duration Value Status Description Data Source(s ) Smoking 07/14/2021 12:00:00 AM EDT Current every day smoker co mpleted Current every day smoker [facility] ([facility]) Smoking 06/28/2021 12:00:00 AM EDT Former Smoker completed Former Smoker eCW1 ([facility]) Smoking 06/28/2021 12:00:00 AM EDT Former Smoker completed Former Smoker eCW1 ([facility]) Smoking 06/28/2021 12:00:00 AM EDT Former Smoker completed Former Smoker eCW1 ([facility]) Smoking 06/28/2021 12:00:00 AM EDT Former Smoker completed Former Smoker eCW1 ([facility]) Smoking 06/15/2021 12:00:00 AM EDT Former Smoker completed Former Smoker eCW1 ([facility]) Smoking 06/15/2021 12:00:00 AM EDT Former Smoker completed Former Smoker eCW1 ([facility]) Smoking 06/15/2021 12:00:00 AM EDT Current every day smoker co mpleted Current every day smoker [facility] ([facility]) Smoking 04/13/2021 12:00:00 AM EDT Current every day smoker co mpleted Current every day smoker [facility] ([facility]) Smoking 04/06/2021 12:00:00 AM EDT Former Smoker completed Former Smoker eCW1 ([facility]) Smoking 04/06/2021 12:00:00 AM EDT Former Smoker completed Former Smoker eCW1 ([facility]) Smoking 04/06/2021 12:00:00 AM EDT Former Smoker completed Former Smoker eCW1 ([facility]) Smoking 04/06/2021 12:00:00 AM EDT Former Smoker completed Former Smoker eCW1 ([facility]) Smoking 04/06/2021 12:00:00 AM EDT Former Smoker completed Former Smoker eCW1 ([facility]) Smoking 04/06/2021 12:00:00 AM EDT Former Smoker completed Former Smoker eCW1 ([facility]) Alcohol intake 02/11/2021 12:00:00 AM EDT Current drinker of al cohol (finding) completed Current drinker of alcohol (finding) [facility] Smoking 01/05/2021 12:00:00 AM EDT Former Smoker completed Former Smoker eCW1 ([facility]) Smoking 01/05/2021 12:00:00 AM EDT Former Smoker completed Former Smoker eCW1 ([facility]) Smoking 01/05/2021 12:00:00 AM EDT Former Smoker completed Former Smoker eCW1 ([facility]) Smoking 01/05/2021 12:00:00 AM EDT Former Smoker completed Former Smoker eCW1 ([facility]) Smoking 01/05/2021 12:00:00 AM EDT Former Smoker completed Former Smoker eCW1 ([facility]) Smoking 01/05/2021 12:00:00 AM EDT Former Smoker completed Former Smoker eCW1 ([facility]) Alcohol intake 12/16/2020 12:00:00 AM EDT Yes completed [facility] Cigarette pack-years 12/16/2020 12:00:00 AM EDT UNK completed [facility] Cigarettes smoked current (pack per day) - Reported 12/17/19 12:00:00 AM EDT UNK completed [facility] Smoking 12/16/2020 12:00:00 AM EDT Former smoker completed Former smoker [facility] Smoking 12/15/2020 12:00:00 AM EDT Current every day smoker co mpleted Current every day smoker [facility] ([facility]) Smoking 12/09/2020 12:00:00 AM EDT Current every day smoker co mpleted Current every day smoker [facility] ([facility]) Smoking 12/07/2020 12:00:00 AM EDT Former Smoker completed Former Smoker eCW1 ([facility]) Smoking 12/07/2020 12:00:00 AM EDT Former Smoker completed Former Smoker eCW1 ([facility]) Smoking 12/07/2020 12:00:00 AM EDT Former Smoker completed Former Smoker eCW1 ([facility]) Smoking 12/07/2020 12:00:00 AM EDT Former Smoker completed Former Smoker eCW1 ([facility]) Smoking 11/09/2020 12:00:00 AM EST Current every day smoker co mpleted Current every day smoker [facility] ([facility]) Smoking 10/12/2020 12:00:00 AM EST Current every day smoker co mpleted Current every day smoker [facility] ([facility]) Smoking 10/08/2020 12:00:00 AM EST Former Smoker completed Former Smoker eCW1 ([facility]) Smoking 10/08/2020 12:00:00 AM EST Former Smoker completed Former Smoker eCW1 ([facility]) Smoking 10/08/2020 12:00:00 AM EST Former Smoker completed Former Smoker eCW1 ([facility]) Smoking 10/08/2020 12:00:00 AM EST Former Smoker completed Former Smoker eCW1 ([facility]) Smoking 10/08/2020 12:00:00 AM EST Former Smoker completed Former Smoker eCW1 ([facility]) Smoking 10/08/2020 12:00:00 AM EST Former Smoker completed Former Smoker eCW1 ([facility]) Smoking 10/08/2020 12:00:00 AM EST Former Smoker completed Former Smoker eCW1 ([facility]) Smoking 10/08/2020 12:00:00 AM EST Former Smoker completed Former Smoker eCW1 ([facility]) Smoking 09/24/2020 12:00:00 AM EST Former Smoker completed Former Smoker eCW1 ([facility]) Smoking 09/24/2020 12:00:00 AM EST Former Smoker completed Former Smoker eCW1 ([facility]) Smoking 08/26/2020 12:00:00 AM EST Current every day smoker co mpleted Current every day smoker [facility] ([facility]) Smoking 08/20/2020 12:00:00 AM EST Former Smoker completed Former Smoker eCW1 ([facility]) Smoking 08/20/2020 12:00:00 AM EST Former Smoker completed Former Smoker eCW1 ([facility]) Smoking 08/20/2020 12:00:00 AM EST Former Smoker completed Former Smoker eCW1 ([facility]) Smoking 08/20/2020 12:00:00 AM EST Former Smoker completed Former Smoker eCW1 ([facility]) Smoking 07/21/2020 12:00:00 AM EST Current every day smoker co mpleted Current every day smoker [facility] ([facility]) Smoking 07/07/2020 12:00:00 AM EDT Former Smoker completed Former Smoker eCW1 ([facility]) Smoking 07/07/2020 12:00:00 AM EDT Former Smoker completed Former Smoker eCW1 ([facility]) Smoking 07/07/2020 12:00:00 AM EDT Former Smoker completed Former Smoker eCW1 ([facility]) Smoking 07/07/2020 12:00:00 AM EDT Former Smoker completed Former Smoker eCW1 ([facility]) Smoking 07/07/2020 12:00:00 AM EDT Former Smoker completed Former Smoker eCW1 ([facility]) Smoking 07/07/2020 12:00:00 AM EDT Former Smoker completed Former Smoker eCW1 ([facility]) Smoking 06/10/2020 12:00:00 AM EDT Current every day smoker co mpleted Current every day smoker [facility] ([facility]) Vital Signs ID Date Data Source UNK Name Value Range Interpretation Code Description Data Source(s) Systolic blood pressure 145 mm[Hg] 145 mm[Hg] M EDENT ([facility], ) Diastolic blood pressure 91 mm[Hg] 91 mm[Hg] MEDENT ([facility], ) Heart rate 67 /min 67 /min MEDENT ([facility]) Body temperature 98.4 [degF] 98.4 [degF] [facility] ([facility]) Body height 67 [in_i] 67 [in_i] [facility] ([facility]) 5'7" Body weight 186.38 [lb_av] 186.38 [lb_av] MEDEN T ([facility]) Body mass index (BMI) [Ratio] 29.2 kg/m2 29.2 k g/m2 [facility] ([facility]) [place] body weight 135 [lb_av] 135 [lb_av] MEDEN T ([facility]) Body weight 84.540 kg 84.540 kg [facility] ([facility]) Body surface area Derived from formula 1.96 m2 1.96 m2 [facility] ([facility]) Body weight 186.8 [lb_av] 186.8 [lb_av] eCW1 ([facility]) Heart rate 95 /min 95 /min eCW1 ([facility]) Respiratory rate 18 /min 18 /min eCW1 ([facility]) Body weight 84.73 kg 84.73 kg eCW1 ([facility]) Body temperature 97.8 [degF] 97.8 [degF] eCW1 ( [facility]) Systolic blood pressure 110 mm[Hg] 110 mm[Hg] e CW1 ([facility]) Body height 67 [in_i] 67 [in_i] eCW1 ([facility]) Diastolic blood pressure 72 mm[Hg] 72 mm[Hg] eCW1 ([facility]) Body mass index (BMI) [Ratio] 29.25 kg/m2 29.25 kg/m2 eCW1 ([facility]) Body weight 183.2 [lb_av] 183.2 [lb_av] eCW1 ([facility]) Body weight 83.1 kg 83.1 kg eCW1 ([facility]) Body height 67 [in_i] 67 [in_i] eCW1 ([facility]) Body mass index (BMI) [Ratio] 28.69 kg/m2 28.69 kg/m2 eCW1 ([facility]) Heart rate 77 /min 77 /min eCW1 ([facility]) Respiratory rate 18 /min 18 /min eCW1 ([facility]) Body temperature 96.6 [degF] 96.6 [degF] eCW1 ( [facility]) Systolic blood pressure 138 mm[Hg] 138 mm[Hg] e CW1 ([facility]) Diastolic blood pressure 80 mm[Hg] 80 mm[Hg] eCW1 ([facility]) Body weight 184 [lb_av] 184 [lb_av] eCW1 ([facility] Body weight 83.46 kg 83.46 kg eCW1 ([facility]) Body height 67 [in_i] 67 [in_i] eCW1 ([facility]) Body mass index (BMI) [Ratio] 28.82 kg/m2 28.82 kg/m2 eCW1 ([facility]) Heart rate 95 /min 95 /min eCW1 ([facility]) Respiratory rate 18 /min 18 /min eCW1 ([facility]) Body temperature 98.3 [degF] 98.3 [degF] eCW1 ( [facility]) Systolic blood pressure 130 mm[Hg] 130 mm[Hg] e CW1 ([facility]) Diastolic blood pressure 80 mm[Hg] 80 mm[Hg] eCW1 ([facility]) [place] body weight 135 [lb_av] 135 [lb_av] MEDEN T ([facility], ) Respiratory rate 12 /min 12 /min MEDENT ( [facility], ) Body height 67 [in_i] 67 [in_i] MED[facility] ([facility], ) 5'7" Body weight 188.00 [lb_av] 188.00 [lb_av] MEDEN T ([facility], ) Body mass index (BMI) [Ratio] 29.4 kg/m2 29.4 k g/m2 MEDENT ([facility]) Systolic blood pressure 124 mm[Hg] 124 mm[Hg] e CW1 ([facility]) Diastolic blood pressure 75 mm[Hg] 75 mm[Hg] eCW1 ([facility]) Body weight 193 [lb_av] 193 [lb_av] eCW1 ([facility] Body height 67 [in_i] 67 [in_i] eCW1 ([facility]) Body mass index (BMI) [Ratio] 30.22 kg/m2 30.22 kg/m2 eCW1 ([facility]) Heart rate 70 /min 70 /min eCW1 ([facility]) Respiratory rate 18 /min 18 /min eCW1 ([facility]) Body temperature 98.7 [degF] 98.7 [degF] eCW1 ( [facility]) Systolic blood pressure 132 mm[Hg] 132 mm[Hg] [facility] Diastolic blood pressure 80 mm[Hg] 80 mm[Hg] [facility] Heart rate 80 /min 80 /min [facility] Body height 170.2 cm 170.2 cm [facility] Body weight 84.823 kg 84.823 kg [facility] Body mass index (BMI) [Ratio] 29.29 kg/m2 29.29 kg/m2 [facility] Oxygen saturation in Arterial blood by Pulse oximetry 98 % 98 % [facility] Body weight 189.6 [lb_av] 189.6 [lb_av] eCW1 ([facility]) Body height 67 [in_i] 67 [in_i] eCW1 ([facility]) Body mass index (BMI) [Ratio] 29.69 kg/m2 29.69 kg/m2 eCW1 ([facility]) Heart rate 76 /min 76 /min eCW1 ([facility]) Respiratory rate 18 /min 18 /min eCW1 ([facility]) Body temperature 97.0 [degF] 97.0 [degF] eCW1 ( [facility]) Systolic blood pressure 138 mm[Hg] 138 mm[Hg] e CW1 ([facility]) Diastolic blood pressure 82 mm[Hg] 82 mm[Hg] eCW1 ([facility]) Systolic blood pressure 150 mm[Hg] 150 mm[Hg] [facility] Diastolic blood pressure 100 mm[Hg] 100 mm[Hg] [facility] Heart rate 75 /min 75 /min [facility] Body height 170.2 cm 170.2 cm [facility] Body weight 85.911 kg 85.911 kg [facility] Body mass index (BMI) [Ratio] 29.66 kg/m2 29.66 kg/m2 [facility] Oxygen saturation in Arterial blood by Pulse oximetry 98 % 98 % [facility] Body height 0.00 in Normal (applies to non-numeric resu lts) 0.00 in [facility] ([facility]) Body weight Measured 0.00 lbs Normal (applies to n on-numeric results) 0.00 lbs [facility] ([facility]) Body mass index (BMI) [Ratio] 0.00 kg/m2 No rmal (applies to non-numeric results) 0.00 kg/m2 [facility] ([facility]) Systolic blood pressure 0 mm[Hg] Normal (applies t o non-numeric results) 0 mm[Hg] [facility] ([facility]) Diastolic blood pressure 0 mm[Hg] Normal (applies to non-numeric results) 0 mm[Hg] [facility] ([facility]) Body weight 192.4 [lb_av] 192.4 [lb_av] W1 ([facility]) Body height 67 [in_i] 67 [in_i] [facility] ([facility]) Body mass index (BMI) [Ratio] 30.13 kg/m2 30.13 kg/m2 [facility] ([facility]) Heart rate 91 /min 91 /min [facility] ([facility]) Respiratory rate 18 /min 18 /min eCW1 ([facility]) Body temperature 97.0 [degF] 97.0 [degF] eCW1 ( [facility]) Systolic blood pressure 128 mm[Hg] 128 mm[Hg] e CW1 ([facility]) Diastolic blood pressure 82 mm[Hg] 82 mm[Hg] eCW1 ([facility]) Body height 0.00 in Normal (applies to non-numeric resu lts) 0.00 in [facility] ([facility]) Body weight Measured 0.00 lbs Normal (applies to n on-numeric results) 0.00 lbs [facility] ([facility]) Body mass index (BMI) [Ratio] 0.00 kg/m2 No rmal (applies to non-numeric results) 0.00 kg/m2 [facility] ([facility]) Systolic blood pressure 0 mm[Hg] Normal (applies t o non-numeric results) 0 mm[Hg] [facility] ([facility]) Diastolic blood pressure 0 mm[Hg] Normal (applies to non-numeric results) 0 mm[Hg] [facility] ([facility]) Body height 0.00 in Normal (applies to non-numeric resu lts) 0.00 in [facility] ([facility]) Body weight Measured 0.00 lbs Normal (applies to n on-numeric results) 0.00 lbs [facility] ([facility]) Body mass index (BMI) [Ratio] 0.00 kg/m2 No rmal (applies to non-numeric results) 0.00 kg/m2 [facility] ([facility]) Systolic blood pressure 0 mm[Hg] Normal (applies t o non-numeric results) 0 mm[Hg] [facility] ([facility]) Diastolic blood pressure 0 mm[Hg] Normal (applies to non-numeric results) 0 mm[Hg] [facility]) Body weight 179 [lb_av] 179 [lb_av] eCW1 ([facility] Body height 67 [in_i] 67 [in_i] eCW1 ([facility]) Body mass index (BMI) [Ratio] 28.03 kg/m2 28.03 kg/m2 eCW1 ([facility]) Heart rate 108 /min 108 /min eCW1 ([facility]) Respiratory rate 18 /min 18 /min eCW1 ([facility]) Body temperature 98.2 [degF] 98.2 [degF] eCW1 ( [facility]) Systolic blood pressure 126 mm[Hg] 126 mm[Hg] e CW1 ([facility]) Diastolic blood pressure 72 mm[Hg] 72 mm[Hg] eCW1 ([facility]) Body weight 182 [lb_av] 182 [lb_av] eCW1 ([facility] Body height 67 [in_i] 67 [in_i] eCW1 ([facility]) Body mass index (BMI) [Ratio] 28.50 kg/m2 28.50 kg/m2 eCW1 ([facility]) Heart rate 80 /min 80 /min eCW1 ([facility]) Respiratory rate 18 /min 18 /min eCW1 ([facility]) Body temperature 97.9 [degF] 97.9 [degF] eCW1 ( [facility]) Systolic blood pressure 130 mm[Hg] 130 mm[Hg] e CW1 ([facility]) Diastolic blood pressure 88 mm[Hg] 88 mm[Hg] eCW1 ([facility]) Diastolic blood pressure 0 mm[Hg] Normal (applies to non-numeric results) 0 mm[Hg] [facility] ([facility]) Body weight Measured 0.00 lbs Normal (applies to n on-numeric results) 0.00 lbs [facility] ([facility]) Body mass index (BMI) [Ratio] 0.00 kg/m2 No rmal (applies to non-numeric results) 0.00 kg/m2 [facility] ([facility]) Systolic blood pressure 0 mm[Hg] Normal (applies t o non-numeric results) 0 mm[Hg] [facility] ([facility]) Body height 0.00 in Normal (applies to non-numeric resu lts) 0.00 in [facility] ([facility]) Body height 67 [in_i] 67 [in_i] eCW1 ([facility]) Heart rate 96 /min 96 /min eCW1 ([facility]) Body temperature 96.8 [degF] 96.8 [degF] eCW1 ( [facility]) Body weight 186 [lb_av] 186 [lb_av] eCW1 ([facility]) Respiratory rate 17 /min 17 /min eCW1 ([facility]) Systolic blood pressure 132 mm[Hg] 132 mm[Hg] e CW1 ([facility]) Diastolic blood pressure 74 mm[Hg] 74 mm[Hg] eCW1 ([facility]) Body mass index (BMI) [Ratio] 29.13 kg/m2 29.13 kg/m2 eCW1 ([facility]) Body weight 186 [lb_av] 186 [lb_av] eCW1 ([facility] Body height 67 [in_i] 67 [in_i] eCW1 ([facility]) Body mass index (BMI) [Ratio] 29.13 kg/m2 29.13 kg/m2 eCW1 ([facility]) Heart rate 96 /min 96 /min eCW1 ([facility]) Respiratory rate 17 /min 17 /min eCW1 ([facility]) Body temperature 96.8 [degF] 96.8 [degF] eCW1 ( [facility]) Systolic blood pressure 132 mm[Hg] 132 mm[Hg] e CW1 ([facility]) Diastolic blood pressure 74 mm[Hg] 74 mm[Hg] eCW1 ([facility]) Systolic blood pressure 112 mm[Hg] 112 mm[Hg] [facility] Diastolic blood pressure 76 mm[Hg] 76 mm[Hg] [facility] Heart rate 72 /min 72 /min [facility] Respiratory rate 16 /min 16 /min [facility] Body height 170.2 cm 170.2 cm [facility] Body weight 82.101 kg 82.101 kg [facility] Body mass index (BMI) [Ratio] 28.35 kg/m2 28.35 kg/m2 [facility] Diastolic blood pressure 0 mm[Hg] Normal (applies to non-numeric results) 0 mm[Hg] [facility] ([facility]) Body height 0.00 in Normal (applies to non-numeric resu lts) 0.00 in [facility] ([facility]) Body weight Measured 0.00 lbs Normal (applies to n on-numeric results) 0.00 lbs [facility] ([facility]) Body mass index (BMI) [Ratio] 0.00 kg/m2 No rmal (applies to non-numeric results) 0.00 kg/m2 [facility] ([facility]) Systolic blood pressure 0 mm[Hg] Normal (applies t o non-numeric results) 0 mm[Hg] [facility] ([facility]) Body weight 183.6 [lb_av] 183.6 [lb_av] eCW1 ([facility]) Body height 67 [in_i] 67 [in_i] eCW1 ([facility]) Body mass index (BMI) [Ratio] 28.75 kg/m2 28.75 kg/m2 eCW1 ([facility]) Heart rate 75 /min 75 /min eCW1 ([facility]) Respiratory rate 18 /min 18 /min eCW1 ([facility]) Body temperature 97.0 [degF] 97.0 [degF] eCW1 ( [facility]) Systolic blood pressure 120 mm[Hg] 120 mm[Hg] e CW1 ([facility]) Diastolic blood pressure 76 mm[Hg] 76 mm[Hg] eCW1 ([facility]) Body weight Measured 0.00 lbs Normal (applies to n on-numeric results) 0.00 lbs [facility] ([facility]) Body height 0.00 in Normal (applies to non-numeric resu lts) 0.00 in [facility] ([facility]) Diastolic blood pressure 0 mm[Hg] Normal (applies to non-numeric results) 0 mm[Hg] [facility] ([facility]) Body mass index (BMI) [Ratio] 0.00 kg/m2 No rmal (applies to non-numeric results) 0.00 kg/m2 [facility] ([facility]) Systolic blood pressure 0 mm[Hg] Normal (applies t o non-numeric results) 0 mm[Hg] [facility] ([facility]) Patient Treatment Plan of Care Planned Activity Planned Date Details Description Data Source (s) Iron (Ferrous Sulfate) 325 (65 Fe) MG 06/28/2021 12:00:00 AM EDT eCW1 ([facility]) Iron (Ferrous Sulfate) 325 (65 Fe) MG 06/28/2021 12:00:00 AM EDT eCW1 ([facility]) Iron (Ferrous Sulfate) 325 (65 Fe) MG 06/28/2021 12:00:00 AM EDT eCW1 ([facility]) Iron (Ferrous Sulfate) 325 (65 Fe) MG 06/28/2021 12:00:00 AM EDT eCW1 ([facility]) tramadol hydrochloride 50 MG Oral Tablet 04/29/2021 12:00:00 AM EDT eCW1 ([facility]) atorvastatin 20 MG Oral Tablet 02/11/2021 12:00:00 AM EDT [facility] Aspirin 81 MG Delayed Release Oral Tablet 01/22/2021 12:00:00 AM ED T [facility] Amlodipine 5 MG Oral Tablet 12/16/2020 12:00:00 AM EDT [facility] Amitriptyline Hydrochloride 25 MG Oral Tablet 12/15/2020 12:00:00 A M EDT [facility] olanzapine 2.5 MG Oral Tablet 12/15/2020 12:00:00 AM EDT [facility] Prazosin 2 MG Oral Capsule 12/15/2020 12:00:00 AM EDT [facility] Clonazepam 0.5 MG Disintegrating Oral Tablet 11/30/2020 12:00:00 AM EDT [facility] tizanidine 4 MG Oral Tablet 11/30/2020 12:00:00 AM EDT [facility] Aspirin 81 MG Delayed Release Oral Tablet 08/05/2020 12:00:00 AM ES T [facility] Hydroxyzine Hydrochloride 50 MG Oral Tablet 07/22/2020 12:00:00 AM EST [facility] Prazosin 5 MG Oral Capsule 07/08/2020 12:00:00 AM EDT [facility] 12 HR Bupropion Hydrochloride 100 MG Extended Release Oral Tablet 07/02/2020 12:00:00 AM EDT [facility] Trazodone Hydrochloride 100 MG Oral Tablet 07/01/2020 12:00:00 AM E DT [facility] olanzapine 5 MG Oral Tablet 06/11/2020 12:00:00 AM EDT [facility] Clonazepam 0.5 MG Oral Tablet 01/22/2020 12:00:00 AM EDT [facility] Ergocalciferol 89589 UNT Oral Capsule [facility] tizanidine 4 MG Oral Tablet [facility] Meclizine Hydrochloride 25 MG Oral Tablet [facility] Amitriptyline Hydrochloride 50 MG Oral Tablet [facility] gabapentin 800 MG Oral Tablet [facility]
[2021-07-21 16:15] VITALS: BP 157/91
--- NOTE | 2021-07-21 20:35 | ECGEPIP ---
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
--- NOTE | 2021-07-21 20:38 | ECGEPIP ---
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
== END 2021-07-21 16:35 | disposition home or self-care (01) ==
LOC: M ED 10:27
DX: R07.9 Chest pain, unspecified (principal); I10 Essential (primary) hypertension; E78.5 Hyperlipidemia, unspecified; F31.9 Bipolar disorder, unspecified; F33.9 Major depressive disorder, recurrent, unspecified; F41.9 Anxiety disorder, unspecified; K21.9 Gastro-esophageal reflux disease without esophagitis; I25.2 Old myocardial infarction; Z79.899 Other long term (current) drug therapy; Z79.82 Long term (current) use of aspirin; Z88.0 Allergy status to penicillin; Z91.048 Other nonmedicinal substance allergy status

== ENCOUNTER → 2021-07-22 | Outpatient (CLI) | payer OTHER | LOC: M PAIN 11:00 | PROVIDERS: ATTEND Anesthesiology | DX: M51.16 Intervertebral disc disorders with radiculopathy, lumbar region (principal); M96.1 Postlaminectomy syndrome, not elsewhere classified; E78.2 Mixed hyperlipidemia; F41.9 Anxiety disorder, unspecified; F32.A Depression, unspecified; F43.10 Post-traumatic stress disorder, unspecified; I25.2 Old myocardial infarction; Z98.84 Bariatric surgery status; K21.9 Gastro-esophageal reflux disease without esophagitis; K44.9 Diaphragmatic hernia without obstruction or gangrene; I10 Essential (primary) hypertension; Z79.82 Long term (current) use of aspirin; Z79.899 Other long term (current) drug therapy; Z87.891 Personal history of nicotine dependence; Z88.0 Allergy status to penicillin; Z91.048 Other nonmedicinal substance allergy status ==

== ENCOUNTER → 2021-09-15 | Outpatient (CLI) | payer OTHER ==
[~2021-09-15] MED LIST changes: +CYAN500T14 PO; +DULC5TAB PO; +DULO30CA9 PO; +FERR325T19 PO
[2021-09-15 08:44] LABS: HEMATOCRIT 36.7 % (36.0-47.0); HEMOGLOBIN 11.4 g/dl (12.0-15.5); MEAN CORPUSCULAR HEMOGLOBIN 26.8 pg (27.0-33.0); MEAN CORPUSCULAR HGB CONC 31.1 g/dl (32.0-36.5); MEAN CORPUSCULAR VOLUME 86.2 fl (80.0-96.0); PLATELET COUNT, AUTOMATED 218 10^3/uL (150-450); RED BLOOD COUNT 4.26 10^6/uL (4.00-5.40); WHITE BLOOD COUNT 3.8 10^3/uL (4.0-10.0)
[2021-09-15 09:45] LABS: HEMOGLOBIN A1c 5.4 %
== END ==
LOC: M LAB 07:34
PROVIDERS: ATTEND Family Medicine
DX: K91.2 Postsurgical malabsorption, not elsewhere classified (principal); R03.0 Elevated blood-pressure reading, without diagnosis of hypertension

== ENCOUNTER → 2021-09-17 | Outpatient (CLI) | payer OTHER ==
[~2021-09-17] MED LIST changes: -LISI-898 PO; +LISI5TAB11 PO; +LOSA100T45 PO; -LOSA100T50 PO; +TIZA10TA PO; -TIZA4TAB4 PO
== END ==
LOC: M LABSMTC 09:20
PROVIDERS: ATTEND Anesthesiology
DX: Z01.818 Encounter for other preprocedural examination (principal); Z11.52 Encounter for screening for COVID-19

== ENCOUNTER 2021-09-22 06:36 | Day surgery (SDC) | payer OTHER ==
[~2021-09-22] VITALS: Ht 170.2 cm; Wt 80.6 kg
[~2021-09-22 06:36] MED LIST changes: +NS 1,000 ML IV ONE
[2021-09-22] MEDS ORDERED: propofoL 200 MG/20 ML VIAL As Ordered ONE ×2 (07:04→08:21)
[2021-09-22] MEDS ORDERED: LIDOCAINE 2% 100MG/5ML SDV (FOR ANES.) As Ordered ONE (07:04)
[2021-09-22 08:51] VITALS: BP 118/82
== END 2021-09-22 09:15 | disposition home or self-care (01) ==
LOC: M OPP 06:36
PROVIDERS: ATTEND Surgery
DX: D12.3 Benign neoplasm of transverse colon (principal); D50.9 Iron deficiency anemia, unspecified; K28.9 Gastrojejunal ulcer, unspecified as acute or chronic, without hemorrhage or perforation; R10.13 Epigastric pain; Z98.84 Bariatric surgery status; Z79.82 Long term (current) use of aspirin; Z79.899 Other long term (current) drug therapy; Z87.891 Personal history of nicotine dependence

== ENCOUNTER 2021-10-02 16:42 | Emergency (ER) | payer OTHER ==
[~2021-10-02] VITALS: Ht 170.2 cm; Wt 81.8 kg
[~2021-10-02 16:42] MED LIST changes: -NS 1,000 ML IV ONE
[2021-10-02 17:34] LABS: HEMATOCRIT 34.9 % (36.0-47.0); HEMOGLOBIN 10.9 g/dl (12.0-15.5); MEAN CORPUSCULAR HEMOGLOBIN 26.7 pg (27.0-33.0); MEAN CORPUSCULAR HGB CONC 31.2 g/dl (32.0-36.5); MEAN CORPUSCULAR VOLUME 85.3 fl (80.0-96.0); PLATELET COUNT, AUTOMATED 199 10^3/uL (150-450); RED BLOOD COUNT 4.09 10^6/uL (4.00-5.40); WHITE BLOOD COUNT 4.6 10^3/uL (4.0-10.0)
[2021-10-02 18:01] LABS: BLOOD UREA NITROGEN 9 MG/DL (7-18); CALCIUM LEVEL 7.9 MG/DL (8.5-10.1); CARBON DIOXIDE LEVEL 23 MEQ/L (21-32); CHLORIDE LEVEL 111 MEQ/L (98-107); CREATININE FOR GFR 0.85 MG/DL (0.55-1.30); GLOMERULAR FILTRATION RATE > 60.0 (>58); GLUCOSE, FASTING 95 MG/DL (70-100); POTASSIUM SERUM 3.7 MEQ/L (3.5-5.1); SODIUM LEVEL 142 MEQ/L (136-145)
[2021-10-02 18:30] VITALS: BP 120/78
== END 2021-10-02 18:42 | disposition home or self-care (01) ==
LOC: M ED 16:42 → EDBD 16:42 → M ED 18:42
DX: R56.9 Unspecified convulsions (principal); I10 Essential (primary) hypertension; E78.5 Hyperlipidemia, unspecified; F31.9 Bipolar disorder, unspecified; I25.10 Atherosclerotic heart disease of native coronary artery without angina pectoris; K21.9 Gastro-esophageal reflux disease without esophagitis; F19.10 Other psychoactive substance abuse, uncomplicated; F17.200 Nicotine dependence, unspecified, uncomplicated; Z88.0 Allergy status to penicillin; Z91.048 Other nonmedicinal substance allergy status; Z79.82 Long term (current) use of aspirin; Z79.899 Other long term (current) drug therapy

== ENCOUNTER → 2021-11-10 | Outpatient (REF) | payer OTHER ==
[~2021-11-10] MED LIST changes: +ACAR25TA2; +ATOM18CA6; +BACL10TA2 PO; +DULO1CAP5; +LEVE500T5
[2021-11-10 14:45] LABS: APPEARANCE, URINE CLEAR (CLEAR); BACTERIA, URINE AUTO 1+ (NEGATIVE); BILIRUBIN, URINE AUTO NEGATIVE (NEGATIVE); BLOOD, URINE BLOOD NEGATIVE (NEGATIVE); COLOR, URINE YELLOW (YELLOW); GLUCOSE, URINE (UA) AUTO NEGATIVE (NEGATIVE); KETONE, URINE AUTO NEGATIVE (NEGATIVE); LEUKOCYTE ESTERASE, URINE AUTO NEGATIVE (NEGATIVE); NITRITE, URINE AUTO NEGATIVE (NEGATIVE); PROTEIN, URINE AUTO NEGATIVE (NEGATIVE); RBC, URINE AUTO 0 /HPF (0-3); SPECIFIC GRAVITY URINE AUTO 1.004 (1.002-1.035); SQUAMOUS EPITHELIAL CELL UR AU 0 /HPF (0-6); UROBILINOGEN, URINE AUTO 0.2 mg/dL (0.0-2.0); WBC, URINE AUTO 0 /HPF (0-3)
== END ==
LOC: M SFHCPLAZ 12:52
PROVIDERS: ATTEND Family Medicine
DX: R31.21 Asymptomatic microscopic hematuria (principal)

== ENCOUNTER → 2021-11-12 | Outpatient (CLI) | payer OTHER | LOC: M PAIN 11:00 | PROVIDERS: ATTEND Anesthesiology | DX: M96.1 Postlaminectomy syndrome, not elsewhere classified (principal); I10 Essential (primary) hypertension; E78.2 Mixed hyperlipidemia; F31.9 Bipolar disorder, unspecified; F41.9 Anxiety disorder, unspecified; M54.50 Low back pain, unspecified; K21.9 Gastro-esophageal reflux disease without esophagitis; K44.9 Diaphragmatic hernia without obstruction or gangrene; G40.909 Epilepsy, unspecified, not intractable, without status epilepticus; I25.2 Old myocardial infarction; I25.10 Atherosclerotic heart disease of native coronary artery without angina pectoris; Z87.891 Personal history of nicotine dependence; Z79.82 Long term (current) use of aspirin; Z79.899 Other long term (current) drug therapy; Z88.0 Allergy status to penicillin; Z91.048 Other nonmedicinal substance allergy status ==

== ENCOUNTER → 2021-12-24 | Outpatient (CLI) | payer OTHER | LOC: M LABSMTC 11:03 | PROVIDERS: ATTEND Anesthesiology | DX: Z20.822 Contact with and (suspected) exposure to COVID-19 (principal) ==

== ENCOUNTER → 2021-12-27 | Outpatient (CLI) | payer OTHER ==
[~2021-12-27] MED LIST changes: +ISOVUE-M 300 61% 15ML VIAL As Ordered ONE; +LIDOCAINE 1% SDV 30ML VIAL As Ordered ONE; +diazePAM 5MG TABLET As Ordered ONE; +diphenhydrAMINE 25MG CAP As Ordered ONE; +methylPREDNISolone SUSP 40MG/ML 1ML VIAL (DEPO MEDROL) As Ordered ONE; +oxyCODONE 5MG TAB As Ordered ONE
== END ==
LOC: M PAIN 13:45
PROVIDERS: ATTEND Anesthesiology
DX: M51.17 Intervertebral disc disorders with radiculopathy, lumbosacral region (principal); I25.2 Old myocardial infarction; I10 Essential (primary) hypertension; E78.2 Mixed hyperlipidemia; F31.9 Bipolar disorder, unspecified; F41.9 Anxiety disorder, unspecified; F43.10 Post-traumatic stress disorder, unspecified; K21.9 Gastro-esophageal reflux disease without esophagitis; K31.84 Gastroparesis; K44.9 Diaphragmatic hernia without obstruction or gangrene; G40.909 Epilepsy, unspecified, not intractable, without status epilepticus; Z87.891 Personal history of nicotine dependence; Z79.84 Long term (current) use of oral hypoglycemic drugs; Z79.82 Long term (current) use of aspirin; Z79.899 Other long term (current) drug therapy; Z88.0 Allergy status to penicillin; Z91.048 Other nonmedicinal substance allergy status
CPT/HCPCS: 62323; J1030; Q9967

== ENCOUNTER → 2022-01-03 | Outpatient (CLI) | payer OTHER ==
[~2022-01-03] MED LIST changes: -ISOVUE-M 300 61% 15ML VIAL As Ordered ONE; -LIDOCAINE 1% SDV 30ML VIAL As Ordered ONE; -diazePAM 5MG TABLET As Ordered ONE; -diphenhydrAMINE 25MG CAP As Ordered ONE; -methylPREDNISolone SUSP 40MG/ML 1ML VIAL (DEPO MEDROL) As Ordered ONE; -oxyCODONE 5MG TAB As Ordered ONE
[2022-01-03 13:33] LABS: BLOOD UREA NITROGEN 6 MG/DL (7-18); CALCIUM LEVEL 9.3 MG/DL (8.5-10.1); CARBON DIOXIDE LEVEL 29 MEQ/L (21-32); CHLORIDE LEVEL 108 MEQ/L (98-107); CREATININE FOR GFR 0.67 MG/DL (0.55-1.30); GLOMERULAR FILTRATION RATE > 60.0 (>58); GLUCOSE, FASTING 80 MG/DL (70-100); NT-PRO BNP 32 PG/ML (<125); POTASSIUM SERUM 3.5 MEQ/L (3.5-5.1); SODIUM LEVEL 142 MEQ/L (136-145)
== END ==
LOC: M PLALAB 09:08
PROVIDERS: ATTEND Student in an Organized Health Care Education/Training Program
DX: Z01.818 Encounter for other preprocedural examination (principal)

== ENCOUNTER 2022-01-24 06:09 | Inpatient (IN) | payer OTHER ==
[2022-01-24] VITALS (9 sets, daily range): BP systolic 126–141; BP diastolic 70–87; O2SAT 95–96
[~2022-01-24] VITALS: Ht 170.2 cm; Wt 76.5 kg
[~2022-01-24 06:09] MED LIST changes: +ATOM25CA7; +CelecoXIB 400 MG CAP PO ONE; +HEPARIN SOD (PORCINE) 5000UNITS/ML 1ML VIAL/SYRINGE SQ ONE; +LR 1,000 ML IV ONE; +METF-838
[2022-01-24] MEDS ORDERED: dexameTHASONE 4 MG/ML 1ML VIAL (J1100 PER 1MG) As Ordered ONE (07:14)
[2022-01-24] MEDS ORDERED: ONDANSETRON 4MG/2ML VIAL As Ordered ONE ×2 (07:14→14:48)
[2022-01-24] MEDS ORDERED: ACETAMINOPHEN 1000MG 100ML IV BTL (OFIRMEV) (J0131 PER 10MG) As Ordered ONE (07:14)
[2022-01-24] MEDS ORDERED: BUPIVACAINE LIPOSOME/PF 1.3% 20ML VIAL (13.3MG/ML)(EXPAREL) As Ordered ONE (07:14)
[2022-01-24] MEDS ORDERED: MIDAZOLAM INJ 2MG/2ML VIAL (J2250 PER 1MG) As Ordered ONE (07:14)
[2022-01-24] MEDS ORDERED: LIDOCAINE 2% 100MG/5ML SDV (FOR ANES.) As Ordered ONE (07:14)
[2022-01-24] MEDS ORDERED: KETOROLAC 60MG 2ML VIAL As Ordered ONE (07:14)
[2022-01-24] MEDS ORDERED: propofoL 200 MG/20 ML VIAL As Ordered ONE (07:14)
[2022-01-24] MEDS ORDERED: ROCURONIUM BROMIDE 50 MG/5 ML VIAL As Ordered ONE ×2 (07:14→10:11)
[2022-01-24] MEDS ORDERED: METOCLOPRAMIDE INJ 10MG/2ML VIAL (J2765 PER 1) As Ordered ONE (07:14)
[2022-01-24] MEDS ORDERED: fentaNYL 100 MCG/2 ML INJECTION As Ordered ONE (07:14)
[2022-01-24] MEDS ORDERED: BUPIVACAINE HCL 0.25% 10ML VIAL As Ordered ONE (07:15)
[2022-01-24] MEDS: LevoFLOXacin IV 500 MG in IV 1 EA IV SCH (07:28)
[2022-01-24] MEDS ORDERED: HYDROmorphone HCL 2MG/ML 1ML VIAL As Ordered ONE (09:21)
[2022-01-24] MEDS ORDERED: SUGAMMADEX SODIUM 500 MG/5 ML VIAL (BRIDION) As Ordered ONE (09:21)
[2022-01-24] MEDS: LIDOCAINE 1% SDV 30ML VIAL As Ordered ONE ×2 (14:31→14:33)
[2022-01-24] MEDS: BUPIVACAINE HCL 0.25% 30ML VIAL As Ordered ONE ×2 (14:31→14:34)
[2022-01-24] MEDS ORDERED: PERCOCET 5MG/325MG TAB PO PRN (14:50)
[2022-01-24] MEDS ORDERED: MORPHINE 2 MG/ML 1ML VIAL IV PRN (14:50)
[2022-01-24] MEDS ORDERED: ONDANSETRON 4MG/2ML VIAL IV PRN ×2 (14:50→14:55)
[2022-01-24] MEDS ORDERED: ACETAMINOPHEN TAB 650MG DOSE (2X325MG) PO PRN (14:50)
[2022-01-24] MEDS ORDERED: oxyCODONE 5MG TAB PO PRN (14:55)
[2022-01-24] MEDS ORDERED: fentaNYL 100 MCG/2 ML INJECTION IV PRN (14:55)
[2022-01-24] MEDS ORDERED: LR 1,000 ML IV SCH (14:55)
[2022-01-24] MEDS: LR 1,000 ML IV SCH ×2 (17:22→20:26)
[2022-01-24] MEDS: PERCOCET 5MG/325MG TAB PO PRN (17:22)
[2022-01-24] MEDS: KETOROLAC 30 MG/ML 1ML VIAL IV SCH (20:23)
[2022-01-24] MEDS: SENOKOT S TAB PO SCH (20:23)
[2022-01-24] MEDS: ATORVASTATIN 20 MG TAB PO SCH (20:24)
[2022-01-24] MEDS: AMITRIPTYLINE 25MG TABLET PO SCH (20:24)
[2022-01-24] MEDS: PRAZOSIN 1 MG CAP PO SCH (20:24)
[2022-01-24] MEDS: levETIRAcetam 250MG TABLET (KEPPRA) PO SCH (20:24)
[2022-01-24] MEDS: PANTOPRAZOLE 40MG TAB (PROTONIX) PO SCH (20:24)
[2022-01-25] VITALS (7 sets, daily range): BP systolic 111–141; BP diastolic 71–89; O2SAT 97
[2022-01-25] MEDS: LR 1,000 ML IV SCH (02:26)
[2022-01-25] MEDS: KETOROLAC 30 MG/ML 1ML VIAL IV SCH ×4 (02:26→20:25)
[2022-01-25] MEDS: LevoFLOXacin IV 500 MG in IV 1 EA IV SCH (05:35)
[2022-01-25 06:14] LABS: BASO % 0.4 % (0.0-1.0); EOS % 0.4 % (0.0-3.0); HEMATOCRIT 33.5 % (36.0-47.0); HEMOGLOBIN 11.2 g/dl (12.0-15.5); LYMPH # 0.8 10^3/uL (1.5-5.0); LYMPH % 10.7 % (24.0-44.0); MEAN CORPUSCULAR HGB CONC 33.4 g/dl (32.0-36.5); MEAN CORPUSCULAR VOLUME 89.8 fl (80.0-96.0); MONO # 0.5 10^3/uL (0.0-0.8); MONO % 6.9 % (2.0-8.0); NEUTROPHILS # 6.2 10^3/uL (1.5-8.5); NEUTROPHILS % 80.9 % (36.0-66.0); PLATELET COUNT, AUTOMATED 171 10^3/uL (150-450); RED BLOOD COUNT 3.73 10^6/uL (4.00-5.40); WHITE BLOOD COUNT 7.6 10^3/uL (4.0-10.0)
[2022-01-25 06:46] LABS: BLOOD UREA NITROGEN 13 MG/DL (7-18); CALCIUM LEVEL 8.4 MG/DL (8.5-10.1); CARBON DIOXIDE LEVEL 26 MEQ/L (21-32); CHLORIDE LEVEL 108 MEQ/L (98-107); CREATININE FOR GFR 0.68 MG/DL (0.55-1.30); GLOMERULAR FILTRATION RATE > 60.0 (>58); GLUCOSE, FASTING 82 MG/DL (70-100); POTASSIUM SERUM 4.2 MEQ/L (3.5-5.1); SODIUM LEVEL 140 MEQ/L (136-145)
[2022-01-25] MEDS: ASPIRIN 81 MG CHEW TABLET PO SCH (08:41)
[2022-01-25] MEDS: DULoxetine 30MG CAPSULE (CYMBALTA) PO SCH (08:42)
[2022-01-25] MEDS: BISACODYL 5 MG TAB PO SCH (08:42)
[2022-01-25] MEDS: levETIRAcetam 250MG TABLET (KEPPRA) PO SCH ×2 (08:42→20:25)
[2022-01-25] MEDS: SENOKOT S TAB PO SCH ×2 (08:42→20:26)
[2022-01-25] MEDS: PANTOPRAZOLE 40MG TAB (PROTONIX) PO SCH ×2 (08:42→20:25)
[2022-01-25] MEDS: CYANOCOBALAMIN 500 MCG TAB PO SCH (08:42)
[2022-01-25] MEDS: ENOXAPARIN 40MG/0.4ML SYRINGE (J1650 PER 10MG) SC SCH (08:42)
[2022-01-25] MEDS: ZIPRASIDONE 20MG CAPSULE (GEODON) PO SCH (09:47)
[2022-01-25] MEDS: PERCOCET 5MG/325MG TAB PO PRN (17:40)
[2022-01-25] MEDS: ATORVASTATIN 20 MG TAB PO SCH (20:24)
[2022-01-25] MEDS: AMITRIPTYLINE 25MG TABLET PO SCH (20:25)
[2022-01-25] MEDS: PRAZOSIN 1 MG CAP PO SCH (20:25)
[2022-01-26] MEDS: KETOROLAC 30 MG/ML 1ML VIAL IV SCH ×3 (01:33→14:25)
[2022-01-26] MEDS: LevoFLOXacin IV 500 MG in IV 1 EA IV SCH (05:10)
[2022-01-26 06:00] VITALS: BP 113/73
[2022-01-26] MEDS: ENOXAPARIN 40MG/0.4ML SYRINGE (J1650 PER 10MG) SC SCH (08:34)
[2022-01-26] MEDS: ZIPRASIDONE 20MG CAPSULE (GEODON) PO SCH (08:34)
[2022-01-26] MEDS: BISACODYL 5 MG TAB PO SCH (08:35)
[2022-01-26] MEDS: levETIRAcetam 250MG TABLET (KEPPRA) PO SCH (08:35)
[2022-01-26] MEDS: CYANOCOBALAMIN 500 MCG TAB PO SCH (08:35)
[2022-01-26] MEDS: DULoxetine 30MG CAPSULE (CYMBALTA) PO SCH (08:35)
[2022-01-26] MEDS: PANTOPRAZOLE 40MG TAB (PROTONIX) PO SCH (08:35)
[2022-01-26] MEDS: ASPIRIN 81 MG CHEW TABLET PO SCH (08:35)
[2022-01-26] MEDS: SENOKOT S TAB PO SCH (08:35)
[2022-01-26] MEDS ORDERED: FERROUS SULFATE 325MG TAB PO SCH (09:00)
[2022-01-26 14:00] VITALS: BP 135/85
[2022-01-26] MEDS ORDERED: PERCOCET PO (15:05)
== END 2022-01-26 16:45 | disposition home or self-care (01) | DRG 227 ==
LOC: M SDC 06:09 → M MS5PR 14:55
PROVIDERS: ADMIT Surgery; ATTEND Surgery
PROC: 0WUF4JZ Supplement Abdominal Wall with Synthetic Substitute, Percutaneous Endoscopic Approach (ICD-10-PCS; 2022-01-24)
PROC: 8E0W4CZ Robotic Assisted Procedure of Trunk Region, Percutaneous Endoscopic Approach (ICD-10-PCS; 2022-01-24)
PROC: 0KXL4Z6 Transfer Left Abdomen Muscle, Transverse Rectus Abdominis Myocutaneous Flap, Percutaneous Endoscopic Approach (ICD-10-PCS; principal; 2022-01-24 07:30)
DX: K43.2 Incisional hernia without obstruction or gangrene (principal); Z88.0 Allergy status to penicillin; Z91.048 Other nonmedicinal substance allergy status; Z79.84 Long term (current) use of oral hypoglycemic drugs; Z79.899 Other long term (current) drug therapy

== ENCOUNTER → 2022-02-09 | Outpatient (CLI) | payer OTHER ==
[~2022-02-09] MED LIST changes: -CelecoXIB 400 MG CAP PO ONE; -HEPARIN SOD (PORCINE) 5000UNITS/ML 1ML VIAL/SYRINGE SQ ONE; -LR 1,000 ML IV ONE
== END ==
LOC: M PAIN 11:15
PROVIDERS: ATTEND Anesthesiology
DX: G89.29 Other chronic pain (principal); M96.1 Postlaminectomy syndrome, not elsewhere classified; I25.2 Old myocardial infarction; I10 Essential (primary) hypertension; E78.2 Mixed hyperlipidemia; F41.9 Anxiety disorder, unspecified; F32.A Depression, unspecified; F43.10 Post-traumatic stress disorder, unspecified; M54.50 Low back pain, unspecified; K21.9 Gastro-esophageal reflux disease without esophagitis; K44.9 Diaphragmatic hernia without obstruction or gangrene; G40.909 Epilepsy, unspecified, not intractable, without status epilepticus; Z88.0 Allergy status to penicillin; Z91.048 Other nonmedicinal substance allergy status; Z79.84 Long term (current) use of oral hypoglycemic drugs; Z79.82 Long term (current) use of aspirin; Z79.899 Other long term (current) drug therapy

== ENCOUNTER → 2022-03-22 | Outpatient (CLI) | payer OTHER ==
[2022-03-22 11:17] LABS: BASO # 0.1 10^3/uL (0.0-0.2); BASO % 1.4 % (0.0-1.0); EOS # 0.1 10^3/uL (0.0-0.5); EOS % 3.5 % (0.0-3.0); HEMATOCRIT 39.1 % (36.0-47.0); HEMOGLOBIN 12.6 g/dl (12.0-15.5); LYMPH # 1.2 10^3/uL (1.5-5.0); LYMPH % 32.3 % (24.0-44.0); MEAN CORPUSCULAR HEMOGLOBIN 30.6 pg (27.0-33.0); MEAN CORPUSCULAR HGB CONC 32.2 g/dl (32.0-36.5); MEAN CORPUSCULAR VOLUME 94.9 fl (80.0-96.0); MONO # 0.3 10^3/uL (0.0-0.8); MONO % 7.9 % (2.0-8.0); NEUTROPHILS % 54.6 % (36.0-66.0); PLATELET COUNT, AUTOMATED 189 10^3/uL (150-450); RED BLOOD COUNT 4.12 10^6/uL (4.00-5.40); WHITE BLOOD COUNT 3.7 10^3/uL (4.0-10.0)
[2022-03-22 12:16] LABS: ALBUMIN 3.1 GM/DL (3.2-5.2); ALT/SGPT 58 U/L (12-78); BILIRUBIN,TOTAL 0.4 MG/DL (0.2-1.0); BLOOD UREA NITROGEN 7 MG/DL (7-18); CALCIUM LEVEL 8.6 MG/DL (8.5-10.1); CARBON DIOXIDE LEVEL 27 MEQ/L (21-32); CHLORIDE LEVEL 108 MEQ/L (98-107); CREATININE FOR GFR 0.93 MG/DL (0.55-1.30); GLOMERULAR FILTRATION RATE > 60.0 (>58); GLUCOSE, FASTING 87 MG/DL (70-100); POTASSIUM SERUM 3.7 MEQ/L (3.5-5.1); SODIUM LEVEL 139 MEQ/L (136-145); TOTAL PROTEIN 5.6 GM/DL (6.4-8.2)
== END ==
LOC: M LAB 10:39
PROVIDERS: ATTEND Psychiatry & Neurology Neurology
DX: R56.9 Unspecified convulsions (principal); Z79.899 Other long term (current) drug therapy

== ENCOUNTER 2022-10-11 22:38 | Emergency (ER) | payer OTHER ==
[~2022-10-11] VITALS: Ht 170.2 cm; Wt 79.2 kg
[2022-10-11 22:39] VITALS: BP 134/93
[2022-10-11 23:48] LABS: INR 0.94; PROTHROMBIN TIME 12.8 SECONDS (12.5-14.5)
[2022-10-12 00:02] LABS: CK-MB VALUE MASS 1.7 NG/ML (<3.6); LIPASE 36 U/L (12-53)
[2022-10-12 00:04] LABS: ALBUMIN 3.7 G/DL (3.2-5.2); ALKALINE PHOSPHATASE 86 U/L (46-116); ALT/SGPT 23 U/L (7.0-40); AST/SGOT 20 U/L (<34); BILIRUBIN,DIRECT 0.2 MG/DL (<0.4); BILIRUBIN,TOTAL 0.4 MG/DL (0.3-1.2); BLOOD UREA NITROGEN 7 MG/DL (9-23); CALCIUM LEVEL 8.8 MG/DL (8.5-10.1); CARBON DIOXIDE LEVEL 25 MMOL/L (20-31); CHLORIDE LEVEL 106 MMOL/L (98-107); CPK CREATINE PHOSPHOKINASE 158 U/L (34-145); GLOMERULAR FILTRATION RATE > 60.0 (>58); GLUCOSE, FASTING 94 MG/DL (60-100); MB/CK RELATIVE INDEX 1.07 (< OR =4); POTASSIUM SERUM 3.8 MMOL/L (3.5-5.1); SODIUM LEVEL 138 MMOL/L (136-145); TOTAL PROTEIN 6.3 G/DL (5.7-8.2)
[2022-10-12 00:05] LABS: BASO # 0.1 10^3/uL (0.0-0.2); BASO % 1.3 % (0.0-1.0); EOS # 0.3 10^3/uL (0.0-0.5); HEMATOCRIT 41.7 % (36.0-47.0); HEMOGLOBIN 13.8 g/dl (12.0-15.5); LYMPH # 1.9 10^3/uL (1.5-5.0); LYMPH % 29.3 % (24.0-44.0); MEAN CORPUSCULAR HEMOGLOBIN 30.4 pg (27.0-33.0); MEAN CORPUSCULAR HGB CONC 33.1 g/dl (32.0-36.5); MEAN CORPUSCULAR VOLUME 91.9 fl (80.0-96.0); MONO # 0.5 10^3/uL (0.0-0.8); MONO % 7.5 % (2.0-8.0); NEUTROPHILS # 3.6 10^3/uL (1.5-8.5); NEUTROPHILS % 56.3 % (36.0-66.0); PLATELET COUNT, AUTOMATED 189 10^3/uL (150-450); RED BLOOD COUNT 4.54 10^6/uL (4.00-5.40); WHITE BLOOD COUNT 6.4 10^3/uL (4.0-10.0)
== END 2022-10-12 00:01 | disposition left against medical advice (07) ==
LOC: M ED 22:38
DX: Z53.21 Procedure and treatment not carried out due to patient leaving prior to being seen by health care provider (principal)

== ENCOUNTER 2023-03-01 13:00 | Emergency (ER) | payer OTHER ==
[~2023-03-01] VITALS: Ht 170.2 cm; Wt 75.0 kg
[~2023-03-01 13:00] MED LIST changes: -LOSA100T45 PO; +LOSA100T46 PO
[2023-03-01] MEDS ORDERED: LORazepam 2 MG/ML 1ML VIAL IV STA (14:50)
[2023-03-01 15:47] LABS: HEMATOCRIT 37.9 % (36.0-47.0); HEMOGLOBIN 12.3 g/dl (12.0-15.5); MEAN CORPUSCULAR HEMOGLOBIN 29.1 pg (27.0-33.0); MEAN CORPUSCULAR HGB CONC 32.5 g/dl (32.0-36.5); MEAN CORPUSCULAR VOLUME 89.8 fl (80.0-96.0); PLATELET COUNT, AUTOMATED 169 10^3/uL (150-450); RED BLOOD COUNT 4.22 10^6/uL (4.00-5.40)
[2023-03-01 16:06] LABS: ETHYL ALCOHOL (ETHANOL) < 0.003 % (0.000-0.010)
[2023-03-01 16:08] LABS: CPK CREATINE PHOSPHOKINASE 155 U/L (34-145); SALICYLATE LEVEL < 3.0 MG/DL (<30)
[2023-03-01 16:09] LABS: ACETAMINOPHEN LEVEL < 2.0 UG/ML (10.0-20.0); ALBUMIN 3.2 G/DL (3.2-5.2); ALKALINE PHOSPHATASE 74 U/L (46-116); ALT/SGPT 51 U/L (7.0-40); AST/SGOT 31 U/L (<34); BILIRUBIN,DIRECT 0.2 MG/DL (<0.4); BILIRUBIN,TOTAL 0.4 MG/DL (0.3-1.2); BLOOD UREA NITROGEN 7 MG/DL (9-23); CALCIUM LEVEL 8.3 MG/DL (8.5-10.1); CARBON DIOXIDE LEVEL 22 MMOL/L (20-31); CHLORIDE LEVEL 111 MMOL/L (98-107); CREATININE FOR GFR 0.78 MG/DL (0.55-1.30); GLOMERULAR FILTRATION RATE > 60.0 (>58); GLUCOSE, FASTING 75 MG/DL (60-100); POTASSIUM SERUM 3.7 MMOL/L (3.5-5.1); SODIUM LEVEL 139 MMOL/L (136-145); TOTAL PROTEIN 5.3 G/DL (5.7-8.2)
[2023-03-01 16:11] LABS: THYROID STIMULATING HORMONE 0.781 uIU/ML (0.55-4.78)
[2023-03-01 16:55] LABS: METHADONE URINE NEGATIVE (NEGATIVE); OPIATES URINE NEGATIVE (NEGATIVE); PHENCYCLIDINE URINE NEGATIVE (NEGATIVE)
[2023-03-01 16:56] LABS: AMPHETAMINES LEVEL URINE NEGATIVE (NEGATIVE); BARBITURATES URINE NEGATIVE (NEGATIVE); COCAINE METABOLITE URINE NEGATIVE (NEGATIVE)
[2023-03-01 16:57] LABS: BENZODIAZEPINES URINE POSITIVE (NEGATIVE); CANNABINOIDS URINE POSITIVE (NEGATIVE)
[2023-03-01 18:12] VITALS: BP 144/90; TEMP 99.5; O2SAT 98
== END 2023-03-01 18:31 | disposition home or self-care (01) ==
LOC: EDBD 13:00 → M ED 13:00
DX: F44.5 Conversion disorder with seizures or convulsions (principal); Z88.0 Allergy status to penicillin; I10 Essential (primary) hypertension; F17.200 Nicotine dependence, unspecified, uncomplicated
CPT/HCPCS: 36415; 80048; 80076; 80143; 80307; 82077; 82550; 84443; 85027; 87635; 96374; 99284; J2060

== ENCOUNTER → 2023-07-12 | Outpatient (REF) | payer OTHER ==
[~2023-07-12] MED LIST changes: -AMIT25TA17 PO; +AMIT25TA19 PO; +GLIP5TAB17 PO; -GLIP5TAB8 PO
== END ==
LOC: M SMT 17:27
PROVIDERS: ATTEND Student in an Organized Health Care Education/Training Program
DX: R35.0 Frequency of micturition (principal)

== ENCOUNTER 2023-07-24 20:39 | Emergency (ER) | payer OTHER ==
[~2023-07-24] VITALS: Ht 167.6 cm; Wt 69.0 kg
[2023-07-24 21:15] VITALS: BP 143/86; TEMP 97.9; O2SAT 98
[2023-07-24 21:31] LABS: BASO # 0.1 10^3/uL (0.0-0.2); BASO % 1.3 % (0.0-1.0); EOS # 0.2 10^3/uL (0.0-0.5); EOS % 2.9 % (0.0-3.0); HEMATOCRIT 37.7 % (36.0-47.0); HEMOGLOBIN 12.1 g/dl (12.0-15.5); LYMPH # 1.4 10^3/uL (1.5-5.0); LYMPH % 26.4 % (24.0-44.0); MEAN CORPUSCULAR HEMOGLOBIN 29.7 pg (27.0-33.0); MEAN CORPUSCULAR HGB CONC 32.1 g/dl (32.0-36.5); MEAN CORPUSCULAR VOLUME 92.6 fl (80.0-96.0); MONO # 0.3 10^3/uL (0.0-0.8); MONO % 5.3 % (2.0-8.0); NEUTROPHILS # 3.5 10^3/uL (1.5-8.5); NEUTROPHILS % 63.9 % (36.0-66.0); PLATELET COUNT, AUTOMATED 170 10^3/uL (150-450); RED BLOOD COUNT 4.07 10^6/uL (4.00-5.40); WHITE BLOOD COUNT 5.5 10^3/uL (4.0-10.0)
[2023-07-24 22:12] LABS: LIPASE 43 U/L (12-53)
[2023-07-24 22:14] LABS: ALBUMIN 3.5 G/DL (3.2-5.2); ALKALINE PHOSPHATASE 79 U/L (46-116); ALT/SGPT 50 U/L (7.0-40); AST/SGOT 40 U/L (<34); BILIRUBIN,DIRECT 0.1 MG/DL (<0.4); BILIRUBIN,TOTAL 0.3 MG/DL (0.3-1.2); BLOOD UREA NITROGEN 10 MG/DL (9-23); CALCIUM LEVEL 8.3 MG/DL (8.5-10.1); CARBON DIOXIDE LEVEL 23 MMOL/L (20-31); CHLORIDE LEVEL 106 MMOL/L (98-107); GLOMERULAR FILTRATION RATE > 60.0 (>58); GLUCOSE, FASTING 78 MG/DL (60-100); SODIUM LEVEL 139 MMOL/L (136-145)
== END 2023-07-24 22:35 | disposition left against medical advice (07) ==
LOC: EDBD 20:39 → M ED 20:39
DX: Z53.21 Procedure and treatment not carried out due to patient leaving prior to being seen by health care provider (principal)

== ENCOUNTER 2023-09-01 00:51 | Emergency (ER) | payer OTHER ==
[~2023-09-01] VITALS: Ht 157.5 cm; Wt 71.8 kg
[~2023-09-01 00:51] MED LIST changes: -EFFE150C2 PO; +EFFE150C3 PO
[2023-09-01 01:14] LABS: IONIZED CALCIUM 4.6 MG/DL (4.5-5.3)
[2023-09-01 01:20] LABS: BASO # 0.1 10^3/uL (0.0-0.2); EOS # 0.2 10^3/uL (0.0-0.5); EOS % 3.3 % (0.0-3.0); HEMATOCRIT 34.6 % (36.0-47.0); HEMOGLOBIN 11.2 g/dl (12.0-15.5); LYMPH # 1.5 10^3/uL (1.5-5.0); LYMPH % 30.7 % (24.0-44.0); MEAN CORPUSCULAR HEMOGLOBIN 29.7 pg (27.0-33.0); MEAN CORPUSCULAR HGB CONC 32.4 g/dl (32.0-36.5); MEAN CORPUSCULAR VOLUME 91.8 fl (80.0-96.0); MONO # 0.4 10^3/uL (0.0-0.8); MONO % 8.2 % (2.0-8.0); NEUTROPHILS # 2.8 10^3/uL (1.5-8.5); NEUTROPHILS % 56.6 % (36.0-66.0); PLATELET COUNT, AUTOMATED 147 10^3/uL (150-450); RED BLOOD COUNT 3.77 10^6/uL (4.00-5.40); WHITE BLOOD COUNT 4.9 10^3/uL (4.0-10.0)
[2023-09-01] MEDS ORDERED: LORazepam 2 MG/ML 1ML VIAL IV STA (01:38)
[2023-09-01 01:41] LABS: ABG BASE EXCESS -1.9 (-2.0-2.0); ABG HCO3 22.8 MMOL/L (22.0-26.0); ABG O2 SATURATION 98.6 % (95.0-99.0); ABG PARTIAL PRESSURE CO2 38.5 mmHg (35.0-45.0); ABG PARTIAL PRESSURE O2 153.2 mmHg (75.0-100.0); ABG STANDARD HCO3 22.9 MMOL/L. (22.0-26.0)
[2023-09-01 01:44] LABS: ETHYL ALCOHOL (ETHANOL) 0.005 % (0.000-0.010)
[2023-09-01 01:46] LABS: ALBUMIN 3.3 G/DL (3.2-5.2); ALKALINE PHOSPHATASE 68 U/L (46-116); ALT/SGPT 24 U/L (7.0-40); AST/SGOT 15 U/L (<34); BILIRUBIN,DIRECT 0.1 MG/DL (<0.4); BILIRUBIN,TOTAL 0.2 MG/DL (0.3-1.2); BLOOD UREA NITROGEN 16 MG/DL (9-23); CALCIUM LEVEL 8.5 MG/DL (8.5-10.1); CARBON DIOXIDE LEVEL 23 MMOL/L (20-31); CHLORIDE LEVEL 108 MMOL/L (98-107); CREATININE FOR GFR 0.91 MG/DL (0.55-1.30); GLOMERULAR FILTRATION RATE > 60.0 (>58); GLUCOSE, FASTING 90 MG/DL (60-100); MAGNESIUM LEVEL 1.9 MG/DL (1.8-2.4); PHOSPHORUS LEVEL 4.4 MG/DL (2.5-4.9); POTASSIUM SERUM 3.9 MMOL/L (3.5-5.1); SODIUM LEVEL 139 MMOL/L (136-145); TOTAL PROTEIN 5.6 G/DL (5.7-8.2)
[2023-09-01 01:54] LABS: RSV AMPLIFICATION NEGATIVE (NEGATIVE)
[2023-09-01 02:14] LABS: AMPHETAMINES LEVEL URINE NEGATIVE (NEGATIVE); BARBITURATES URINE NEGATIVE (NEGATIVE); COCAINE METABOLITE URINE NEGATIVE (NEGATIVE); METHADONE URINE NEGATIVE (NEGATIVE); OPIATES URINE NEGATIVE (NEGATIVE); PHENCYCLIDINE URINE NEGATIVE (NEGATIVE)
[2023-09-01 02:21] LABS: BENZODIAZEPINES URINE POSITIVE (NEGATIVE); CANNABINOIDS URINE POSITIVE (NEGATIVE)
[2023-09-01 08:32] VITALS: BP 111/77; TEMP 97.8; O2SAT 99
== END 2023-09-01 08:48 | disposition home or self-care (01) ==
LOC: EDBD 00:51 → M ED 00:51
DX: F44.5 Conversion disorder with seizures or convulsions (principal); F12.10 Cannabis abuse, uncomplicated; I25.10 Atherosclerotic heart disease of native coronary artery without angina pectoris; I25.2 Old myocardial infarction; E78.2 Mixed hyperlipidemia; Z98.61 Coronary angioplasty status; Z98.84 Bariatric surgery status; Z79.82 Long term (current) use of aspirin; Z79.899 Other long term (current) drug therapy; Z88.0 Allergy status to penicillin; Z91.89 Other specified personal risk factors, not elsewhere classified
CPT/HCPCS: 36600; 70450; 71045; 80048; 80076; 80307; 82077; 82140; 82330; 82803; 83605; 83735; 84100; 85025; 87631; 93005; 93041; 94760; 96374; 99285; J2060

== ENCOUNTER → 2023-09-19 | Outpatient (CLI) | payer OTHER ==
[2023-09-19 18:32] LABS: FREE T4 0.68 NG/DL (0.89-1.76); PROLACTIN 1.45 NG/ML; THYROID STIMULATING HORMONE 0.961 uIU/ML (0.55-4.78)
== END ==
LOC: M PLALAB 15:18
PROVIDERS: ATTEND Nurse Practitioner Family
DX: N64.3 Galactorrhea not associated with childbirth (principal)

== ENCOUNTER → 2023-09-19 | Outpatient (CLI) | payer OTHER | LOC: M WHC 14:00 | PROVIDERS: ATTEND Nurse Practitioner Family | DX: Z53.9 Procedure and treatment not carried out, unspecified reason (principal) ==

== ENCOUNTER → 2023-10-03 | Outpatient (CLI) | payer OTHER | LOC: M WHC 11:32 | PROVIDERS: ATTEND Nurse Practitioner Family | DX: N64.4 Mastodynia (principal); N64.3 Galactorrhea not associated with childbirth ==

== ENCOUNTER → 2023-10-18 | Outpatient (CLI) | payer OTHER ==
[2023-10-18 12:38] LABS: BASO % 0.4 % (0.0-1.0); EOS # 0.2 10^3/uL (0.0-0.5); EOS % 3.5 % (0.0-3.0); HEMATOCRIT 33.2 % (36.0-47.0); HEMOGLOBIN 10.7 g/dl (12.0-15.5); LYMPH # 1.1 10^3/uL (1.5-5.0); MEAN CORPUSCULAR HEMOGLOBIN 28.8 pg (27.0-33.0); MEAN CORPUSCULAR HGB CONC 32.2 g/dl (32.0-36.5); MEAN CORPUSCULAR VOLUME 89.5 fl (80.0-96.0); MONO # 0.4 10^3/uL (0.0-0.8); MONO % 8.5 % (2.0-8.0); NEUTROPHILS # 3.4 10^3/uL (1.5-8.5); NEUTROPHILS % 65.4 % (36.0-66.0); PLATELET COUNT, AUTOMATED 194 10^3/uL (150-450); RED BLOOD COUNT 3.71 10^6/uL (4.00-5.40); WHITE BLOOD COUNT 5.2 10^3/uL (4.0-10.0)
[2023-10-18 13:14] LABS: ALBUMIN 3.1 G/DL (3.2-5.2); ALKALINE PHOSPHATASE 69 U/L (46-116); ALT/SGPT 45 U/L (7.0-40); AST/SGOT 41 U/L (<34); BILIRUBIN,TOTAL 0.3 MG/DL (0.3-1.2); BLOOD UREA NITROGEN 11 MG/DL (9-23); CARBON DIOXIDE LEVEL 25 MMOL/L (20-31); CHLORIDE LEVEL 111 MMOL/L (98-107); CHOLESTEROL LEVEL 101 MG/DL (<200); CHOLESTEROL RISK RATIO 1.89 (<5); CREATININE FOR GFR 0.73 MG/DL (0.55-1.30); GLOMERULAR FILTRATION RATE > 60.0 (>58); GLUCOSE, FASTING 73 MG/DL (60-100); HDL CHOLESTEROL 53.3 MG/DL (>40); LDL CHOLESTEROL 39.1 MG/DL (<100); NON-HDL-C 47.7 MG/DL; POTASSIUM SERUM 3.8 MMOL/L (3.5-5.1); SODIUM LEVEL 140 MMOL/L (136-145); TOTAL PROTEIN 5.6 G/DL (5.7-8.2); TRIGLYCERIDES LEVEL 43 MG/DL (<150)
== END ==
LOC: M LAB 11:09
PROVIDERS: ATTEND Student in an Organized Health Care Education/Training Program
DX: Z00.00 Encounter for general adult medical examination without abnormal findings (principal)

== ENCOUNTER → 2023-11-08 | Outpatient (CLI) | payer OTHER ==
[2023-11-08 10:04] LABS: ALBUMIN 3.2 G/DL (3.2-5.2); BILIRUBIN,DIRECT 0.1 MG/DL (<0.4); BILIRUBIN,TOTAL 0.3 MG/DL (0.3-1.2); PERCENT SATURATION 6.5 % (13.2-45.0); TOTAL PROTEIN 5.8 G/DL (5.7-8.2)
[2023-11-08 10:07] LABS: FERRITIN 4.5 NG/ML (7.3-270.7)
[2023-11-10 15:10] LABS: SOLUBLE TRANSFERRIN RECEPTOR 23.1 nmol/L (12.2-27.3)
== END ==
LOC: M LAB 09:08
PROVIDERS: ATTEND Student in an Organized Health Care Education/Training Program
DX: R74.8 Abnormal levels of other serum enzymes (principal); Z13.0 Encounter for screening for diseases of the blood and blood-forming organs and certain disorders involving the immune mechanism

== ENCOUNTER → 2023-12-02 | Outpatient (CLI) | payer OTHER | LOC: M RAD 16:22 | PROVIDERS: ATTEND Physician Assistant Medical | DX: S62.306A Unspecified fracture of fifth metacarpal bone, right hand, initial encounter for closed fracture (principal); Y92.9 Unspecified place or not applicable; Y93.9 Activity, unspecified ==

== ENCOUNTER → 2024-01-26 | Outpatient (CLI) | payer OTHER ==
[~2024-01-26] MED LIST changes: +BUPR-597 PO; -BUPR300T92 PO
== END ==
LOC: M WHC 08:21
PROVIDERS: ATTEND Student in an Organized Health Care Education/Training Program
DX: R74.01 Elevation of levels of liver transaminase levels (principal); Z90.49 Acquired absence of other specified parts of digestive tract

== ENCOUNTER → 2024-04-03 | Outpatient (CLI) | payer OTHER ==
[2024-04-03 09:39] LABS: BASO % 0.7 % (0.0-1.0); EOS # 0.1 10^3/uL (0.0-0.5); EOS % 3.2 % (0.0-3.0); HEMATOCRIT 36.4 % (36.0-47.0); HEMOGLOBIN 11.5 g/dl (12.0-15.5); LYMPH % 24.6 % (24.0-44.0); MEAN CORPUSCULAR HEMOGLOBIN 28.3 pg (27.0-33.0); MEAN CORPUSCULAR HGB CONC 31.6 g/dl (32.0-36.5); MEAN CORPUSCULAR VOLUME 89.4 fl (80.0-96.0); MONO # 0.4 10^3/uL (0.0-0.8); MONO % 10.5 % (2.0-8.0); NEUTROPHILS # 2.5 10^3/uL (1.5-8.5); NEUTROPHILS % 60.8 % (36.0-66.0); PLATELET COUNT, AUTOMATED 194 10^3/uL (150-450); RED BLOOD COUNT 4.07 10^6/uL (4.00-5.40); WHITE BLOOD COUNT 4.1 10^3/uL (4.0-10.0)
[2024-04-03 09:41] LABS: HEMATOCRIT 36.4 % (36.0-47.0)
[2024-04-03 10:12] LABS: IRON (FE) 30 UG/DL (50-170)
[2024-04-03 10:14] LABS: VITAMIN B12 LEVEL 1323 PG/ML (211-911)
== END ==
LOC: M LAB 09:12
PROVIDERS: ATTEND Student in an Organized Health Care Education/Training Program
DX: L30.9 Dermatitis, unspecified (principal); Z13.0 Encounter for screening for diseases of the blood and blood-forming organs and certain disorders involving the immune mechanism

== ENCOUNTER 2024-06-08 09:14 | Emergency (ER) | payer OTHER ==
[~2024-06-08] VITALS: Ht 170.2 cm; Wt 75.0 kg
[~2024-06-08 09:14] MED LIST changes: +GABA-1635 PO; -GABA800T4 PO
[2024-06-08] MEDS ORDERED: VITA100T14 (09:24)
[2024-06-08] MEDS ORDERED: TRAZ-257 (09:24)
[2024-06-08] MEDS ORDERED: TOPI25TA10 (09:24)
[2024-06-08] MEDS ORDERED: MAGN400T33 (09:24)
[2024-06-08] MEDS: NS 1,000 ML IV ONE (11:15)
[2024-06-08] MEDS: KETOROLAC 30 MG/ML 1ML VIAL IV ONE (11:15)
[2024-06-08] MEDS: diphenhydrAMINE 50MG/ML VIAL IV ONE (11:16)
[2024-06-08] MEDS: METOCLOPRAMIDE INJ 10MG/2ML VIAL IV ONE (11:19)
[2024-06-08 11:23] LABS: BASO # 0.1 10^3/uL (0.0-0.2); EOS # 0.2 10^3/uL (0.0-0.5); EOS % 4.4 % (0.0-3.0); HEMATOCRIT 35.9 % (36.0-47.0); HEMOGLOBIN 11.3 g/dl (12.0-15.5); LYMPH # 1.2 10^3/uL (1.5-5.0); LYMPH % 25.7 % (24.0-44.0); MEAN CORPUSCULAR HGB CONC 31.5 g/dl (32.0-36.5); MEAN CORPUSCULAR VOLUME 88.9 fl (80.0-96.0); MONO # 0.4 10^3/uL (0.0-0.8); MONO % 8.7 % (2.0-8.0); NEUTROPHILS # 2.9 10^3/uL (1.5-8.5); NEUTROPHILS % 59.8 % (36.0-66.0); PLATELET COUNT, AUTOMATED 192 10^3/uL (150-450); RED BLOOD COUNT 4.04 10^6/uL (4.00-5.40); WHITE BLOOD COUNT 4.8 10^3/uL (4.0-10.0)
[2024-06-08 11:27] LABS: ERYTHROCYTE SEDIMENTATION RATE 9 mm/hr (0-30)
[2024-06-08 11:41] LABS: C REACTIVE PROTEIN QUANTITATIV < 0.40 MG/DL (<1.0)
[2024-06-08 11:43] LABS: BLOOD UREA NITROGEN 11 MG/DL (9-23); CALCIUM LEVEL 8.2 MG/DL (8.5-10.1); CARBON DIOXIDE LEVEL 25 MMOL/L (20-31); CHLORIDE LEVEL 109 MMOL/L (98-107); CREATININE FOR GFR 0.78 MG/DL (0.55-1.30); GLOMERULAR FILTRATION RATE > 60.0 (>51); GLUCOSE, FASTING 79 MG/DL (60-100); MAGNESIUM LEVEL 1.8 MG/DL (1.8-2.4); SODIUM LEVEL 137 MMOL/L (136-145)
[2024-06-08] MEDS ORDERED: PROHANCE 279.3MG/ML 15ML VIAL As Ordered ONE (13:53)
[2024-06-08 14:59] VITALS: BP 117/77; TEMP 96.9; O2SAT 98
== END 2024-06-08 15:01 | disposition home or self-care (01) ==
LOC: M ED 09:14
DX: G43.909 Migraine, unspecified, not intractable, without status migrainosus (principal); R20.2 Paresthesia of skin; F31.9 Bipolar disorder, unspecified; G40.909 Epilepsy, unspecified, not intractable, without status epilepticus; Z98.84 Bariatric surgery status; Z86.79 Personal history of other diseases of the circulatory system; Z88.0 Allergy status to penicillin; Z91.048 Other nonmedicinal substance allergy status; Z79.82 Long term (current) use of aspirin; Z79.02 Long term (current) use of antithrombotics/antiplatelets; Z79.899 Other long term (current) drug therapy
CPT/HCPCS: 70450; 70544; 70553; 80048; 83735; 85025; 85652; 86140; 96361; 96374; 96375; 99284; A9576; J1100; J1200; J1885; J2765

== ENCOUNTER 2024-06-18 08:22 | Outpatient (CLI) | payer OTHER ==
[~2024-06-18] VITALS: Ht 170.2 cm; Wt 77.2 kg
[2024-06-18] VITALS (8 sets, daily range): BP systolic 100–129; BP diastolic 58–94; O2SAT 97–100
[~2024-06-18 08:22] MED LIST changes: +ALBUTEROL SULFATE 2.5MG/0.5ML INH NEB SOLN INH PRN; +EPINEPHrine INJ 1 MG/ML 1ML AMP IM PRN; +MAGN400T33; +TOPI25TA10; +TRAZ-257; +VITA100T14; +methylPREDNISolone 125MG 2ML VIAL IV PRN
[2024-06-18] MEDS: IRON SUCROSE 25 MG in NS 23.75 ML IV ONE (09:22)
[2024-06-18] MEDS: IRON SUCROSE 475 MG in NS 250 ML IV ONE (10:07)
== END 2024-06-18 14:25 ==
LOC: M INFU 08:22
PROVIDERS: ATTEND Student in an Organized Health Care Education/Training Program
DX: D50.9 Iron deficiency anemia, unspecified (principal); Z88.0 Allergy status to penicillin; Z91.89 Other specified personal risk factors, not elsewhere classified
CPT/HCPCS: 96365; 96366; J1756

== ENCOUNTER → 2024-08-27 | Outpatient (CLI) | payer OTHER ==
[~2024-08-27] MED LIST changes: -ALBUTEROL SULFATE 2.5MG/0.5ML INH NEB SOLN INH PRN; -EPINEPHrine INJ 1 MG/ML 1ML AMP IM PRN; -ZIPR60CA11 PO; +ZIPR60CA21 PO; -methylPREDNISolone 125MG 2ML VIAL IV PRN
== END ==
LOC: M RAD 12:20
PROVIDERS: ATTEND Student in an Organized Health Care Education/Training Program
DX: M25.512 Pain in left shoulder (principal)

== ENCOUNTER → 2024-09-09 | Outpatient (CLI) | payer OTHER ==
[2024-09-09 14:58] LABS: HEMATOCRIT 38.1 % (36.0-47.0); HEMOGLOBIN 12.2 g/dl (12.0-15.5); MEAN CORPUSCULAR VOLUME 93.6 fl (80.0-96.0); PLATELET COUNT, AUTOMATED 156 10^3/uL (150-450); RED BLOOD COUNT 4.07 10^6/uL (4.00-5.40); WHITE BLOOD COUNT 3.7 10^3/uL (4.0-10.0)
[2024-09-09 15:23] LABS: BILIRUBIN,DIRECT 0.1 MG/DL (<0.4); BILIRUBIN,TOTAL 0.3 MG/DL (0.3-1.2); PERCENT SATURATION 13.7 % (13.2-45.0); TOTAL PROTEIN 5.8 G/DL (5.7-8.2)
[2024-09-09 15:26] LABS: FERRITIN 5.4 NG/ML (7.3-270.7)
== END ==
LOC: M LAB 13:43
PROVIDERS: ATTEND Student in an Organized Health Care Education/Training Program
DX: D50.8 Other iron deficiency anemias (principal)

== ENCOUNTER → 2024-09-10 | Outpatient (CLI) | payer OTHER ==
[2024-09-10 15:02] LABS: HEMATOCRIT 37.9 % (36.0-47.0); HEMOGLOBIN 12.2 g/dl (12.0-15.5); MEAN CORPUSCULAR HEMOGLOBIN 29.3 pg (27.0-33.0); MEAN CORPUSCULAR HGB CONC 32.2 g/dl (32.0-36.5); MEAN CORPUSCULAR VOLUME 90.9 fl (80.0-96.0); PLATELET COUNT, AUTOMATED 173 10^3/uL (150-450); RED BLOOD COUNT 4.17 10^6/uL (4.00-5.40); WHITE BLOOD COUNT 2.5 10^3/uL (4.0-10.0)
[2024-09-10 15:11] LABS: AMORPHOUS SEDIMENT SMALL (NEGATIVE); APPEARANCE, URINE HAZY (CLEAR); BACTERIA, URINE AUTO NEGATIVE (NEGATIVE); BILIRUBIN, URINE AUTO NEGATIVE (NEGATIVE); BLOOD, URINE BLOOD NEGATIVE (NEGATIVE); COLOR, URINE AMBER (YELLOW); GLUCOSE, URINE (UA) AUTO NEGATIVE (NEGATIVE); KETONE, URINE AUTO TRACE mg/dL (NEGATIVE); LEUKOCYTE ESTERASE, URINE AUTO NEGATIVE (NEGATIVE); MUCUS, URINE SMALL (NEGATIVE); NITRITE, URINE AUTO NEGATIVE (NEGATIVE); PROTEIN, URINE AUTO NEGATIVE (NEGATIVE); RBC, URINE AUTO 4 /HPF (0-3); SPECIFIC GRAVITY URINE AUTO 1.025 (1.002-1.035); SQUAMOUS EPITHELIAL CELL UR AU 2 /HPF (0-6); WBC, URINE AUTO 1 /HPF (0-3)
[2024-09-10 15:32] LABS: LIPASE 59 U/L (12-53)
[2024-09-10 15:34] LABS: ALBUMIN 3.1 G/DL (3.2-5.2); ALKALINE PHOSPHATASE 76 U/L (35-104); ALT/SGPT 46 U/L (7.0-40); AMYLASE 213 U/L (30-118); AST/SGOT 39 U/L (<34); BILIRUBIN,TOTAL 0.2 MG/DL (0.3-1.2); BLOOD UREA NITROGEN 9 MG/DL (9-23); CALCIUM LEVEL 8.2 MG/DL (8.5-10.1); CARBON DIOXIDE LEVEL 29 MMOL/L (20-31); CHLORIDE LEVEL 108 MMOL/L (98-107); CREATININE FOR GFR 0.81 MG/DL (0.55-1.30); GLOMERULAR FILTRATION RATE > 60.0 (>51); GLUCOSE, FASTING 84 MG/DL (60-100); POTASSIUM SERUM 4.5 MMOL/L (3.5-5.1); SODIUM LEVEL 141 MMOL/L (136-145); TOTAL PROTEIN 5.8 G/DL (5.7-8.2)
== END ==
LOC: M LAB 13:55
PROVIDERS: ATTEND Physician Assistant Surgical
DX: Z98.84 Bariatric surgery status (principal); K91.2 Postsurgical malabsorption, not elsewhere classified; Z86.39 Personal history of other endocrine, nutritional and metabolic disease; A04.9 Bacterial intestinal infection, unspecified; R10.9 Unspecified abdominal pain

== ENCOUNTER → 2024-09-22 | Outpatient (REF) | payer OTHER ==
[~2024-09-22] MED LIST changes: +ASPI-226 PO; -ATOM25CA7; +ATOM25CA7 PO; +DIPH50CA29 PO; +DULO1CAP6 PO; +FERR325T3 PO; -LEVE500T5; +LEVE500T5 PO; -MAGN400T33; +MAGN400T33 PO; +ONDA-83 PO; +OXYC1TAB23 PO; +SUCR1TAB56 PO; -TOPI25TA10; +TOPI25TA10 PO; -TRAZ-257; +TRAZ-257 PO; -VITA100T14; +VITA100T14 PO
== END ==
LOC: M LAB REF 11:50
PROVIDERS: ATTEND Physician Assistant Surgical
DX: K91.2 Postsurgical malabsorption, not elsewhere classified (principal); R10.9 Unspecified abdominal pain; Z86.39 Personal history of other endocrine, nutritional and metabolic disease; Z98.84 Bariatric surgery status

== ENCOUNTER 2024-09-23 09:18 | Day surgery (SDC) | payer OTHER ==
[~2024-09-23] VITALS: Ht 170.2 cm; Wt 76.9 kg
[~2024-09-23 09:18] MED LIST changes: -OXYC1TAB23 PO
[2024-09-23] MEDS ORDERED: LR 1,000 ML IV SCH (09:25)
[2024-09-23 09:51] LABS: HEMATOCRIT 37.9 % (36.0-47.0); HEMOGLOBIN 12.3 g/dl (12.0-15.5); MEAN CORPUSCULAR HEMOGLOBIN 29.2 pg (27.0-33.0); MEAN CORPUSCULAR HGB CONC 32.5 g/dl (32.0-36.5); PLATELET COUNT, AUTOMATED 148 10^3/uL (150-450); RED BLOOD COUNT 4.21 10^6/uL (4.00-5.40); WHITE BLOOD COUNT 2.8 10^3/uL (4.0-10.0)
[2024-09-23] MEDS: VASOPRESSIN INJ 20UNITS/ML 1ML VIAL As Ordered ONE (10:40)
[2024-09-23] MEDS ORDERED: SCOPOLAMINE 1MG TRANSDERMAL PATCH TOP ONE (10:50)
[2024-09-23] MEDS: IPRATROPIUM 0.5MG/ALBUTEROL 2.5MG INH SOL UD 3ML (DUONEB) NEB ONE (11:01)
[2024-09-23] MEDS ORDERED: propofoL 200 MG/20 ML VIAL As Ordered ONE (11:08)
[2024-09-23] MEDS ORDERED: ROCURONIUM BROMIDE 50MG/5ML VIAL As Ordered ONE (11:08)
[2024-09-23] MEDS ORDERED: fentaNYL 100 MCG/2 ML INJECTION As Ordered ONE (11:08)
[2024-09-23] MEDS ORDERED: LIDOCAINE 2% 100MG/5ML SDV (FOR ANES.) As Ordered ONE (11:08)
[2024-09-23] MEDS ORDERED: SUCCINYLCHOLINE 100MG/5ML SYRINGE As Ordered ONE (11:08)
[2024-09-23] MEDS: ceFAZolin SOD 2 GM in IV 1 EA IV ONE (11:25)
[2024-09-23] MEDS ORDERED: SUGAMMADEX SODIUM 500 MG/5 ML VIAL (BRIDION) As Ordered ONE (11:29)
[2024-09-23] MEDS ORDERED: ONDANSETRON 4MG 2ML VIAL As Ordered ONE (11:49)
[2024-09-23] MEDS ORDERED: ACETAMINOPHEN 1000MG/100ML IV BAG As Ordered ONE (11:49)
[2024-09-23] MEDS ORDERED: KETOROLAC 60MG 2ML VIAL As Ordered ONE (11:49)
[2024-09-23] MEDS ORDERED: HYDROmorphone HCL 2MG/ML 1ML VIAL As Ordered ONE (11:54)
[2024-09-23] MEDS ORDERED: fentaNYL 100 MCG/2 ML INJECTION IV PRN (12:35)
[2024-09-23] MEDS ORDERED: COLA100C5 PO (12:42)
[2024-09-23] MEDS ORDERED: OXYC1TAB23 PO (12:43)
[2024-09-23] MEDS: ONDANSETRON 4MG 2ML VIAL IV PRN (12:51)
[2024-09-23] MEDS: oxyCODONE 5MG TAB PO PRN (12:52)
[2024-09-23 13:40] VITALS: BP 112/70; TEMP 96.9; O2SAT 97
== END 2024-09-23 14:45 | disposition home or self-care (01) ==
LOC: M SDC 09:18
PROVIDERS: ATTEND Specialist
DX: N81.6 Rectocele (principal); I25.10 Atherosclerotic heart disease of native coronary artery without angina pectoris; R56.9 Unspecified convulsions; E78.00 Pure hypercholesterolemia, unspecified; I25.2 Old myocardial infarction; K21.9 Gastro-esophageal reflux disease without esophagitis; G47.33 Obstructive sleep apnea (adult) (pediatric); F31.9 Bipolar disorder, unspecified; F41.9 Anxiety disorder, unspecified; F90.9 Attention-deficit hyperactivity disorder, unspecified type; Z79.899 Other long term (current) drug therapy; Z98.84 Bariatric surgery status; F12.10 Cannabis abuse, uncomplicated; Z88.0 Allergy status to penicillin; Z91.048 Other nonmedicinal substance allergy status
CPT/HCPCS: 36415; 57250; 85027; 86850; 86900; 86901; 88302; J0131; J0330; J0665; J0690; J1100; J1171; J1885; J2405; J3010

== ENCOUNTER 2025-01-17 12:12 | Emergency (ER) | payer OTHER ==
[~2025-01-17] VITALS: Ht 170.2 cm; Wt 85.6 kg
[~2025-01-17 12:12] MED LIST changes: -BUPR-597 PO; +BUPR-766 PO; +OXYC1TAB23 PO; +TOPI-256 PO; -TOPI25TA10 PO
[2025-01-17] MEDS: diphenhydrAMINE 50MG/ML VIAL IV ONE (13:05)
[2025-01-17] MEDS: ACETAMINOPHEN 500 MG TAB PO ONE (13:05)
[2025-01-17] MEDS: METOCLOPRAMIDE INJ 10MG/2ML VIAL IV ONE (13:05)
[2025-01-17] MEDS: NS (Normal Saline) 0.9% 1,000 ML IV ONE (13:05)
[2025-01-17] MEDS: KETOROLAC 30 MG/ML 1ML VIAL IV ONE (13:06)
[2025-01-17 14:30] VITALS: BP 158/88; TEMP 97.4; O2SAT 99
== END 2025-01-17 14:44 | disposition home or self-care (01) ==
LOC: M ED 12:12
DX: R51.9 Headache, unspecified (principal); E78.5 Hyperlipidemia, unspecified; K21.9 Gastro-esophageal reflux disease without esophagitis; R56.9 Unspecified convulsions; F31.9 Bipolar disorder, unspecified; Z98.84 Bariatric surgery status; Z79.82 Long term (current) use of aspirin; Z79.899 Other long term (current) drug therapy; Z88.0 Allergy status to penicillin; Z91.89 Other specified personal risk factors, not elsewhere classified
CPT/HCPCS: 70450; 96361; 96374; 96375; 99284; J1200; J1885; J2765

== ENCOUNTER → 2025-04-07 | Outpatient (REF) | payer OTHER | LOC: M SFHCPLAZ 16:15 | PROVIDERS: ATTEND Student in an Organized Health Care Education/Training Program | DX: K76.0 Fatty (change of) liver, not elsewhere classified (principal); K92.1 Melena; R53.83 Other fatigue; Z53.9 Procedure and treatment not carried out, unspecified reason ==

== ENCOUNTER → 2025-04-10 | Outpatient (CLI) | payer OTHER ==
[2025-04-10 12:53] LABS: BASO # 0.0 10^3/uL (0.0-0.2); BASO % 1.3 % (0.0-1.0); EOS # 0.2 10^3/uL (0.0-0.5); EOS % 5.0 % (0.0-3.0); LYMPH # 1.1 10^3/uL (1.5-5.0); LYMPH % 36.8 % (24.0-44.0); MONO # 0.3 10^3/uL (0.0-0.8); MONO % 11.0 % (2.0-8.0); NEUTROPHILS # 1.4 10^3/uL (1.5-8.5); NEUTROPHILS % 45.6 % (36.0-66.0); PLATELET COUNT, AUTOMATED 242 10^3/uL (150-450)
[2025-04-10 12:58] LABS: INR 0.97
[2025-04-10 13:12] LABS: CHOLESTEROL LEVEL 129 MG/DL (<200); CHOLESTEROL RISK RATIO 2.36 (<5); IRON (FE) 43 UG/DL (50-170); LDL CHOLESTEROL 60.8 MG/DL (<100); NON-HDL-C 74.4 MG/DL; PERCENT SATURATION 11.0 % (13.2-45.0); TRIGLYCERIDES LEVEL 68 MG/DL (<150)
[2025-04-10 13:16] LABS: FREE T4 0.87 NG/DL (0.89-1.76); HEPATITIS B SURFACE ANTIBODY NEGATIVE (POSITIVE)
[2025-04-10 13:49] LABS: HEPATITIS C VIRUS ABY INDEX 0.57 INDEX (<0.8)
[2025-04-12 10:57] LABS: HEPATITIS B CORE ANTIBODY IGG NON-REACTIVE (NON-REACTIVE)
[2025-04-13 18:13] LABS: LEVETIRACETAM (KEPPRA) 9.3 mcg/mL (6.0-46.0)
== END ==
LOC: M PLALAB 09:33
DX: K76.0 Fatty (change of) liver, not elsewhere classified (principal); K92.1 Melena; R53.83 Other fatigue

== ENCOUNTER → 2025-04-15 | Outpatient (REF) | payer OTHER | LOC: M SFHCPLAZ 15:12 | DX: Z53.9 Procedure and treatment not carried out, unspecified reason (principal) ==

== ENCOUNTER → 2025-04-28 | Outpatient (CLI) | payer OTHER ==
[2025-04-28 17:41] LABS: BASO # 0.0 10^3/uL (0.0-0.2); BASO % 0.7 % (0.0-1.0); EOS # 0.2 10^3/uL (0.0-0.5); EOS % 2.9 % (0.0-3.0); LYMPH # 1.6 10^3/uL (1.5-5.0); LYMPH % 28.1 % (24.0-44.0); MONO # 0.5 10^3/uL (0.0-0.8); MONO % 8.5 % (2.0-8.0); NEUTROPHILS # 3.3 10^3/uL (1.5-8.5); NEUTROPHILS % 59.4 % (36.0-66.0); PLATELET COUNT, AUTOMATED 243 10^3/uL (150-450)
[2025-04-28 18:31] LABS: ALT/SGPT 40.0 U/L (7.0-40); AST/SGOT 36.0 U/L (<34); CALCIUM LEVEL 9.0 MG/DL (8.5-10.1); CARBON DIOXIDE LEVEL 25.0 MMOL/L (20-31); CHLORIDE LEVEL 111.0 MMOL/L (98-107); CREATININE FOR GFR 0.87 MG/DL (0.55-1.30); GLOMERULAR FILTRATION RATE 81.1 (>51); POTASSIUM SERUM 4.2 MMOL/L (3.5-5.1); SODIUM LEVEL 142.0 MMOL/L (136-145)
== END ==
LOC: M PLALAB 14:57
DX: K92.1 Melena (principal); K76.0 Fatty (change of) liver, not elsewhere classified

== ENCOUNTER → 2025-05-07 | Outpatient (CLI) | payer OTHER ==
[~2025-05-07] MED LIST changes: -VITA100T14 PO; +VITA100T69 PO
[2025-05-07 14:53] LABS: BASO # 0.1 10^3/uL (0.0-0.2); BASO % 1.5 % (0.0-1.0); EOS # 0.2 10^3/uL (0.0-0.5); EOS % 4.6 % (0.0-3.0); LYMPH # 1.1 10^3/uL (1.5-5.0); LYMPH % 22.0 % (24.0-44.0); MONO # 0.4 10^3/uL (0.0-0.8); MONO % 9.1 % (2.0-8.0); NEUTROPHILS # 3.0 10^3/uL (1.5-8.5); NEUTROPHILS % 62.6 % (36.0-66.0); PLATELET COUNT, AUTOMATED 271 10^3/uL (150-450)
[2025-05-07 15:06] LABS: INR 0.93
[2025-05-07 15:10] LABS: CALCIUM LEVEL 8.9 MG/DL (8.5-10.1); CARBON DIOXIDE LEVEL 26.0 MMOL/L (20-31); CHLORIDE LEVEL 110.0 MMOL/L (98-107); CREATININE FOR GFR 1.06 MG/DL (0.55-1.30); GLOMERULAR FILTRATION RATE 64.0 (>51); POTASSIUM SERUM 4.4 MMOL/L (3.5-5.1); SODIUM LEVEL 143.0 MMOL/L (136-145)
[2025-05-07 15:34] LABS: ESTIMATED AVERAGE GLUCOSE 105.0 MG/DL (60-110)
== END ==
LOC: M PLALAB 13:38
PROVIDERS: ATTEND Family Medicine
DX: Z01.818 Encounter for other preprocedural examination (principal)

== ENCOUNTER → 2025-07-18 | Outpatient (CLI) | payer OTHER ==
[~2025-07-18] MED LIST changes: +GABA-1172 PO; +LEVE1TAB43 PO; +PROA1AER2 IN
== END ==
LOC: M RAD 12:49
PROVIDERS: ATTEND Physician Assistant
DX: M79.671 Pain in right foot (principal); M77.31 Calcaneal spur, right foot; M19.071 Primary osteoarthritis, right ankle and foot

== ENCOUNTER → 2025-07-24 | Outpatient (CLI) | payer OTHER | LOC: M SLEEP HO 06-26 11:20 | DX: R06.83 Snoring (principal) | CPT/HCPCS: G0399 ×2 ==

== ENCOUNTER → 2025-07-25 | Outpatient (REF) | payer OTHER | LOC: M SFHCPLAZ 21:46 | PROVIDERS: ATTEND Family Medicine | DX: R53.83 Other fatigue (principal); Z53.9 Procedure and treatment not carried out, unspecified reason ==

== ENCOUNTER → 2025-07-28 | Outpatient (CLI) | payer OTHER ==
[2025-07-28 08:08] LABS: PLATELET COUNT, AUTOMATED 222 10^3/uL (150-450)
[2025-07-28 08:27] LABS: IRON (FE) 29.0 UG/DL (50-170); PERCENT SATURATION 7.6 % (13.2-45.0)
[2025-07-28 08:29] LABS: FREE T4 0.85 NG/DL (0.89-1.76); TOTAL 25(OH) VITAMIN D 22.8 NG/ML (20.0-100.0)
[2025-07-28 08:34] LABS: VITAMIN B12 LEVEL 303.0 PG/ML (211-911)
== END ==
LOC: M LAB 07:24
DX: R53.83 Other fatigue (principal)

== ENCOUNTER → 2025-08-18 | Outpatient (CLI) | payer OTHER | LOC: M RAD 17:29 | PROVIDERS: ATTEND Physician Assistant Medical | DX: M25.551 Pain in right hip (principal) ==